=== PATIENT | female | born 1960 | race Caucasian/White ===

== ENCOUNTER → 2019-11-08 14:30 | Outpatient (CLI) | payer MEDICARE, MEDICAID, SELFPAY ==
--- NOTE | ~2019-11-08 | MR_ITS ---
EXAMINATION: MR cervical spine wo con DATE: 11/08/2019 15:24 INDICATION: Chronic right-sided neck pain. Right shoulder and arm pain. TECHNIQUE: Magnetic resonance imaging (MRI) of the cervical spine was performed without intravenous c ontrast. Sequences included sagittal T2-weighted FSE, sagittal STIR FSE, sagittal T1-weighted FSE, ax ial MERGE, and axial T2-weighted FSE. COMPARISON: None FINDINGS: There is 7 degrees dextrocurvature of cervical spine. Vertebral body heights are normal. Th ere is moderately decreased disc height at C4-C5 and mildly decreased disc height at C5-C6 and C6-C7. There is increased T2-weighted signal intensity in the spinal cord at C4-C5, consistent with myeloma lacia. The following disc levels are specifically discussed: C2-C3: The disc does not extend beyond the endplate margin. There is no uncovertebral joint osteoarth ritis. There is mild bilateral facet joint osteoarthritis. There is no neural foraminal stenosis. The re is no central canal stenosis. C3-C4: The disc is bulging. There is mild bilateral uncovertebral joint osteoarthritis. There is mild bilateral facet joint osteoarthritis. There is mild bilateral neural foraminal stenosis. There is mi ld central canal stenosis with ventral indentation of the spinal cord. C4-C5: The disc is bulging. There is severe bilateral uncovertebral joint osteoarthritis. There is mi ld left facet joint osteoarthritis. There is moderate bilateral neural foraminal stenosis. There is s evere central canal stenosis with ventral and dorsal indentation of the spinal cord. C5-C6: The disc is bulging with superimposed central extrusion. There is moderate bilateral uncoverte bral joint osteoarthritis. There is mild bilateral facet joint osteoarthritis. There is mild bilatera l neural foraminal stenosis. There is moderate central canal stenosis with ventral and dorsal indenta tion of the spinal cord. C6-C7: There is a right central extrusion. There is mild bilateral uncovertebral joint osteoarthritis . There is no facet joint osteoarthritis. There is no neural foraminal stenosis. There is mild centra l canal stenosis with ventral indentation of the spinal cord. C7-T1: The disc does not extend beyond the endplate margin. There is no uncovertebral joint osteoarth ritis. There is mild bilateral facet joint osteoarthritis. There is mild left neural foraminal stenos is. There is no central canal stenosis. IMPRESSION: 1. Myelomalacia at C4-C5. 2. Moderate cervical spondylosis. Reviewed, dictated and finalized at location A.
--- NOTE | ~2019-11-08 | MR_ITS ---
EXAMINATION: MR lumbar spine wo [facility] EXAM DATE: 11/08/2019 15:42 INDICATION: Chronic low back pain, right leg and hip pain. TECHNIQUE: Multi-sequential, multiplanar MR images of the lumbar spine were obtained without contrast . Sagittal T1, T2, T2 fat saturation images. Axial T2 weighted images. There is no prior study for comparison. FINDINGS: There is mild lumbar disc desiccation. The vertebral bodies are aligned in the AP dimension . Vertebral body and disc heights are well-maintained. The conus medullaris terminates at the T12-L1 level and has normal signal intensity and morphology. There are no suspicious marrow signal abnormal ities. Paraspinal soft tissue is unremarkable. Level by level evaluation: T12-L1: Disc does not extend beyond the endplate margin. Facet arthropathy: Mild. Neural foraminal stenosis: No stenosis. Central canal stenosis: No stenosis. L1-L2: Disc does not extend beyond the endplate margin. Facet arthropathy: Mild. Neural foraminal stenosis: No stenosis. Central canal stenosis: No stenosis. L2-L3: There is a minimal diffuse disc bulge. Facet arthropathy: Mild. Neural foraminal stenosis: No stenosis. Central canal stenosis: No stenosis. L3-L4: There is a mild diffuse disc bulge. Facet arthropathy: Moderate. Ligamentum flavum enlargement. Neural foraminal stenosis: Mild bilateral. Central canal stenosis: Mild. L4-L5: There is a mild to moderate diffuse disc bulge. Facet arthropathy: Moderate to severe. Neural foraminal stenosis: Mild to moderate bilateral. Central canal stenosis: Moderate. L5-S1: There is a minimal diffuse disc bulge. Facet arthropathy: Minimal. Neural foraminal stenosis: Mild bilateral. Central canal stenosis: No stenosis. IMPRESSION: 1. L4-5 moderate to severe lumbar facet arthropathy, moderate central canal stenosis. 2. Otherwise mild to moderate lumbar spondylosis. Reviewed, dictated and finalized at location A. IMPRESSION: 1. L4-5 moderate to severe lumbar facet arthropathy, moderate central canal st enosis. 2. Otherwise mild to moderate lumbar spondylosis.
== END ==
PROVIDERS: Visit Provider Nurse Practitioner Adult Health
DX: M47.22 Other spondylosis with radiculopathy, cervical region (principal); M47.26 Other spondylosis with radiculopathy, lumbar region
CPT/HCPCS: 72141; 72148

== ENCOUNTER 2020-02-12 15:01 | Inpatient (IN) | payer MEDICARE, MEDICAID, SELFPAY ==
--- NOTE | ~2020-02-12 | XR_ITS ---
EXAMINATION: XR abdomen obstructive series DATE: 02/14/2020 08:11 INDICATION: Partial small bowel obstruction. TECHNIQUE: Upright and supine views of the abdomen were obtained. COMPARISON: Abdomen radiograph 02/13/2020, CT abdomen and pelvis 02/12/2020 FINDINGS: There is dilated small bowel in the midabdomen. The colon is normal in caliber. No free int raperitoneal gas. Surgical clips in the right upper quadrant are likely from cholecystectomy. The danish ogastric tube tip is in the stomach. There is a prominent left paracardial fat pad. There is mild ate lectasis in left lower lung zone. IMPRESSION: 1. Chronically dilated small bowel, consistent with partial small bowel obstruction. Reviewed, dictated and finalized at location A. IMPRESSION: 1. Chronically dilated small bowel, consistent with partial small bowel obstruc tion.
--- NOTE | ~2020-02-12 | CT_ITS ---
EXAMINATION: CT abdomen pelvis w con DATE: 02/12/2020 17:10 INDICATION: Low abdominal pain. Nausea and vomiting. TECHNIQUE: Computed tomography (CT) of the abdomen and pelvis was performed with 100 mL Omnipaque 350 intravenous contrast. Automated exposure control and iterative reconstruction technique were employe d. The dose-length product was 764.79 mGy-cm. COMPARISON: CT abdomen and pelvis 02/01/2019 FINDINGS: The visualized portions of the lung bases demonstrate emphysema and mild atelectasis and sc arring. No pleural effusion. The heart size is normal. No pericardial effusion. There is a 12 mm cyst in the liver. There are changes of cholecystectomy. The spleen, pancreas, and adrenal glands are nor mal. There are cysts in the kidneys measuring up to 2.5 cm on the right. There is an anastomosis in t he rectum. There are multiple dilated loops of small bowel with transition point at a small bowel renan stomosis stenosis. There is mesenteric edema in the area of bowel dilatation. There are no pathologic ally enlarged lymph nodes. There is no free intraperitoneal fluid. There is mild thoracolumbar spondy losis. IMPRESSION: 1. Chronically dilated small bowel with transition point at a small bowel anastomosis, consistent wit h partial small bowel obstruction. Reviewed, dictated and finalized at location A. IMPRESSION: 1. Chronically dilated small bowel with transition point at a small bowel anast omosis, consistent with partial small bowel obstruction.
--- NOTE | ~2020-02-12 | XR_ITS ---
EXAMINATION: XR abdomen obstructive series DATE: 02/13/2020 08:03 INDICATION: Small bowel obstruction. TECHNIQUE: Upright and supine views of the abdomen were obtained. COMPARISON: CT abdomen and pelvis 02/12/2020 FINDINGS: There are dilated loops of small bowel in the midabdomen. The colon is decompressed. No delia e intraperitoneal gas. The nasogastric tube tip is in the stomach. Surgical clips in the right upper quadrant are likely from cholecystectomy. IMPRESSION: 1. Chronically dilated small bowel, consistent with partial small bowel obstruction. Reviewed, dictated and finalized at location A. IMPRESSION: 1. Chronically dilated small bowel, consistent with partial small bowel obstruc tion.
--- NOTE | ~2020-02-12 | XR_ITS ---
EXAMINATION: XR abdomen NG/feed tube insert DATE: 02/12/2020 18:11 INDICATION: Nasogastric tube placement. TECHNIQUE: An upright view of the abdomen was obtained. COMPARISON: CT abdomen and pelvis 02/12/2020 FINDINGS: The lower abdomen is excluded. There are dilated loops of small bowel. The nasogastric tube tip is in the stomach. Surgical clips in the right upper quadrant are likely from cholecystectomy. T here is mild atelectasis in right midlung zone. IMPRESSION: 1. Nasogastric tube tip in the stomach. 2. Chronically dilated small bowel, consistent with partial small bowel obstruction. Reviewed, dictated and finalized at location A. IMPRESSION: 1. Nasogastric tube tip in the stomach. 2. Chronically dilated small bowel, consistent with partial small bowel obstruc tion.
--- NOTE | ~2020-02-12 | XR_ITS ---
EXAMINATION: XR small bowel follow through DATE: 02/15/2020 10:22 INDICATION: Small bowel obstruction. TECHNIQUE: Oral contrast was administered, and a time course of radiographs of the abdomen was obtain ed. Fluoroscopy of the small bowel was not performed. Fluoroscopy exposure time was 0 minutes. The to mal number of images was 2. COMPARISON: CT abdomen and pelvis 02/12/2020 FINDINGS: The nasogastric tube tip is in the stomach. There are multiple chronically dilated loops of small bow el. Transit time from the stomach to proximal colon was approximately 30 minutes. Surgical clips in t he right upper quadrant are likely from cholecystectomy. IMPRESSION: 1. Chronically dilated small bowel with prompt passage of contrast to the colon, consistent with adyn amic ileus. Reviewed, dictated and finalized at location A. IMPRESSION: 1. Chronically dilated small bowel with prompt passage of contrast to the colon , consistent with adynamic ileus.
[2020-02-12 15:04] VITALS: BP 109/66; PULSE 70; RESP 18; TEMP 36.3; O2SAT 96
[2020-02-12 16:06] LABS: Basophils Absolute Auto 0.1 K/mm3 (0.0-0.1); Basophils Percent Auto 0.4 % (0.2-1.2); Eosinophils Absolute Auto 0.1 K/mm3 (0-0.3); Eosinophils Percent Auto 0.8 % (0-4.4); Hemoglobin 11.1 g/dL (12.0-15.0); Immature Granulocyte Percent A 0.7 % (0-0.5); Lymphocytes Absolute Auto 3.83 K/mm3 (0.9-3.2); Lymphocytes Percent Auto 27.6 % (18.3-44.2); Mean Corpuscular HGB Conc 30.8 g/dl (32-36); Mean Corpuscular Hemoglobin 23.7 pg (26-34); Mean Corpuscular Volume 76.9 fl (80-100); Mean Platelet Volume 9.9 fl (7.4-10.4); Monocytes Absolute Auto 0.8 K/mm3 (0.1-0.6); Monocytes Percent Auto 5.9 % (2.6-8.5); Neutrophils Percent Auto 64.6 % (45.5-73.1); Platelet Count Result 434 k/mm3 (150-375); Red Blood Count 4.68 M/mm3 (4.2-5.4); Red Cell Distribution Width 17.7 % (11.5-14.5); White Blood Count 13.9 K/mm3 (4.5-10.0)
[2020-02-12 16:20] LABS: Alanine Aminotransferase 15 U/L (4-35); Albumin Level 4.3 g/dL (3.5-5.1); Alkaline Phosphatase 113 U/L (38-126); Aspartate Amino Transferase 26 U/L (14-36); Bilirubin,Total 0.3 mg/dL (0.2-1.3); Blood Urea Nitrogen 23 mg/dL (7-17); Calcium 9.3 mg/dL (8.4-10.2); Carbon Dioxide 30 mmol/L (22-30); Chloride 100 mmol/L (98-107); Estimated CRCL calculation 84 ml/min; Estimated Glomerular Filt Rate > 60; Glucose 126 mg/dL (65-105); Lipase 44 U/L (23-300); Potassium 3.6 mmol/L (3.4-5.0); Sodium 136 mmol/L (137-145)
--- NOTE | 2020-02-12 16:54 | ED.GENADULT ---
HPI - General Adult General Chief complaint: Abdominal Pain Stated complaint: Vomiting, ABD Pain Time Seen by Provider: 02/12/20 15:36 History of Present Illness HPI narrative: Patient is a 59 y/o female complaining of generalized abdominal pain since yesterday. The pain is a cramping sensation and worse on the right side. She rates her pain as 10/10. She has some nausea but no vomiting or diarrhea. She took MOM which did not help. She states that she had multiple surgeries and bowel obstructions in the past. She denies any chest pain, SOB, dysuria or fever. Related Data Home Medications Medication Instructions Recorded Confirmed albuterol sulfate 90 mcg/actuation 1 inhalation INHALATION Q4H 09/21/19 aerosol inhaler fluticasone 500 mcg-salmeterol 50 1 inhalation INHALATION Q12H 09/21/19 mcg/dose blistr powdr for inhalation fluticasone propionate 50 1 spray NASAL DAILY 09/21/19 mcg/actuation nasal spray,suspension ipratropium 0.5 mg-albuterol 3 mg 3 ml INHALATION Q4H PRN 09/21/19 (2.5 mg base)/3 mL nebulization soln modafinil 200 mg tablet 200 mg PO QAM 09/21/19 pantoprazole 20 mg tablet,delayed 20 mg PO QAM 09/21/19 release peg 400-propylene glycol 0.4 %-0.3 1 drop EACH EYE DAILY PRN 09/21/19 % eye drops ropinirole 1 mg tablet 1 mg PO DAILY tablet 09/21/19 Allergies Allergy/AdvReac Type Severity Reaction Status Date / Time latex Allergy Unknown unknown Verified 02/12/20 15:06 Penicillins Allergy Unknown unknown Verified 02/12/20 15:06 Review of Systems Constitutional: Constitutional: Denies chills, Denies fever(s), Denies headache(s) and Denies weakness Eyes: Eyes: Denies blurry vision ENT: Denies headache(s) and Denies neck pain Cardiovascular: Cardiovascular: Denies chest pain and Denies dyspnea Respiratory: Respiratory: Denies cough and Denies dyspnea Gastrointestinal: Gastrointestinal: Reports abdominal pain, Denies diarrhea, Reports nausea and Denies vomiting Genitourinary: Genitourinary: Denies hematuria and Denies dysuria Musculoskeletal: Musculoskeletal: Denies back pain and Denies neck pain Neurologic: Denies headache(s) and Denies weakness PMFSH Social History Social History Smoking status: Current every day smoker Smoking end date: 09/01/17 Alcohol intake: current Gender identity (if verbalized by the patient): Female Exam Const: General: no acute distress and well developed Orientation/consciousness: oriented to person, oriented to place, oriented to time and patient oriented x3 HENMT: Head: normocephalic Ears: external ears normal General nose exam: Normal external nose present Eyes: General: appearance normal, both eyes and all related structures Conjunctivae: conjunctivae normal Neck: Neck: normal visual inspection and full ROM Chest: Chest palpation & inspection: normal inspection of the chest and no tenderness Resp: Effort & Inspection: normal respiratory effort Auscultation: clear to auscultation bilaterally Cardio: Rate: regular rate Rhythm: regular rhythm GI: GI Palp: Yes abdominal tenderness and Yes Soft to palpation Skin: General skin exam: normal color and turgor normal Neuro: General: oriented to person, oriented to place, oriented to time and patient oriented x3 Cognition (Neuro): normal cognition Extrem: General: normal to inspection, full ROM and no pedal edema Psych: Appearance: grossly normal Mental Status: mental status grossly normal Affect: normal affect Course Consultations Consultation #1: Discussed with Dr. Uribe, who recommends admitting to hospitalist if possible. Date: 02/12/20 Time: 18:08 Consultation #2: Discussed with LOVELY Joe, who agrees to admit to Dr. Aldana. Date: 02/12/20 Time: 18:14 Vital Signs Vital signs: Vital Signs Temperature 36.3 C L 02/12/20 15:04 Pulse Rate 70 02/12/20 15:04 Respiratory Rate 18 02/12/20 15:04 Bloo
[2020-02-12 17:50] LABS: Add Urine Microscopic? YES; Appearance Urine Clear (Clear); Bacteria Urine Trace /hpf; Bilirubin Urine Negative (Negative); Blood Urine Negative (Negative); Color Urine Yellow (Yellow); Glucose Urine UA Negative (Negative); Ketones Urine Trace mg/dL (Negative); Leukocyte Esterase Ur Negative LEU/UL (Negative); Mucus Urine Few /lpf; Nitrate Urine Negative (Negative); Protein Urine Negative (Negative); Specific Grav Ur 1.018 (1.001-1.035); Squamous Epithelial Cell Urine Many /hpf (Few); Urobilinogen Urine Negative mg/dL (<2.0)
[2020-02-12] MEDS: MORPHINE SULFATE 4 MG/ML INJ IV PUSH (18:01)
[2020-02-12] MEDS: SODIUM CHLORIDE 0.9% IV 1,000 ML 999 ML IV CONT (18:01)
[2020-02-12 19:00] VITALS: BP 141/70; PULSE 80; RESP 18; O2SAT 92
--- NOTE | 2020-02-12 19:45 | ADMGEN ---
This patient, Rebecca Ricci, was admitted to Medical Room 349-01. Patient/family oriented to hospital policies and general routines including ID bracelet, bed and alarms, visiting hours, pain management, procedures, bathroom and other care routines, personal items, smoking policy, room service/diet, and visiting hours. Valuables list has been completed. Information on how to activate the Rapid Response Team has been discussed. Patient/Family are encouraged to report perceived risks to care and to ask questions if they do not understand what they are told or what they should do.
[2020-02-12] MEDS: SODIUM CHLORIDE 0.9% IV 1,000 ML 100 ML IV CONT (19:50)
--- NOTE | 2020-02-12 20:00 | PM.IMHP ---
H&P: HPI History of Present Illness Chief complaint: Abdominal pain. Narrative: Rebecca Ricci is a very pleasant 59-year-old female with history of several abdominal surgeries and small bowel obstructions who presented to the emergency department earlier this afternoon from home for evaluation of abdominal pain. Her medical history is also significant for chronic respiratory failure on p.r.n. oxygen, COPD, obstructive sleep apnea, chronic anemia, and GERD. Yesterday afternoon, not long after eating a fruit salad, corn on the cob, and cauliflower, she developed diffuse abdominal pain, worse in the right middle and lower quadrant, similar to prior bowel obstructions. Last night she slept poorly as she was up walking around trying to get her bowels to move. She did have a small formed stool this morning, but she continued to have pain so she took milk of magnesia without much benefit. Additionally, she has had nausea, vomiting, and abdominal bloating. She then decided come to the emergency department and not long thereafter she had a fairly large loose stool. CT of the abdomen and pelvis done on arrival to the emergency department showed chronically dilated small bowel with a transition point at small-bowel anastomosis consistent with partial small-bowel obstruction. NG tube has since been placed and she feels a bit better with regards to her nausea. She denies fever, chills, and sweats. No hematemesis, melena, or hematochezia. She has not had chest pain or shortness of breath. Review of Systems Review of Systems: Narrative: Twelve systems were reviewed with pertinent positives and negatives as per HPI. Except as documented, all other systems were reviewed and are negative. [facility] Past Medical History Medical History (Updated 02/12/20 @ 21:39 by Tatyana Wang PA-C) Chronic anemia Chronic back pain Chronic obstructive pulmonary disease Chronic respiratory failure with hypoxia On 2 liters nasal cannula p.r.n. Depression with anxiety Dyslipidemia Gastroesophageal reflux disease Hypothyroidism Migraine headache Obstructive sleep apnea Peripheral neuropathy Scoliosis Small bowel obstruction due to adhesions Previous, multiple admissions for such. Vitamin D deficiency Surgical History Surgical History (Updated 02/12/20 @ 21:34 by Tatyana Wang PA-C) Bladder prolapse Repair of bladder prolapse. History of bilateral cataract extraction History of bowel resection Secondary to bowel obstruction with colostomy and subsequent takedown. History of cholecystectomy History of eye surgery Treatment of amblyopia. History of tonsillectomy and adenoidectomy Rectal prolapse Rectal prolapse repair. Status post small bowel resection (~01/2019) Exploratory laparotomy with resection of 36 centimeters of the small bowel with extensive adhesiolysis and ileal-ileal anastomosis. Family History Family History (Updated 02/12/20 @ 21:35 by Tatyana Wang PA-C) Father Cirrhosis Mother Emphysema of lung Social History Social History (Updated 02/12/20 @ 21:36 by Tatyana Wang PA-C) Social History: The patient lives in [place] with her significant other, Luis Fernando. 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 She smoked about a pack of cigarettes per day for > 30 years and quit in 2018. She denies alcohol and illicit substance abuse. She designates her son, Rohit, as her surrogate decision maker and she wishes to be a full code. Years smoked: 30 Smoking status: Current every day smoker Tobacco type: cigarettes Smoking end date: 09/01/17 Alcohol intake: former Substance use: never Sexual Orientation (if Verbalized by the Patient): Straight or Heterosexual Spiritual care concerns: No Meds Home Medications and Allergies Home Medications Medication Instructions Recorded Confirmed Type albuterol sulfate 90 mcg/actuation 2 inhalation INHALATION Q4H PRN 09/21/19 02/12/20 History aerosol inhaler
[2020-02-12 20:12] VITALS: BMI 31.3
[2020-02-12 20:58] VITALS: BP 140/72; PULSE 92; RESP 16; TEMP 36.3; O2SAT 95
[2020-02-13 04:20] LABS: IFOB Positive Control Positive; Immunochemical Fecal Occult Bl Negative (N)
[2020-02-13 04:46] VITALS: BP 143/74; PULSE 81; RESP 14; TEMP 36.2; O2SAT 96
[2020-02-13] MEDS: SODIUM CHLORIDE 0.9% IV 1,000 ML 100 ML IV CONT ×2 (05:30→17:33)
[2020-02-13] MEDS: MORPHINE SULFATE 2 MG/ML INJ IV PUSH (05:32)
[2020-02-13] MEDS: PANTOPRAZOLE SODIUM IV 40 MG VIAL IV PUSH (09:32)
[2020-02-13] MEDS: FLUTICASONE PROPIONATE 0.05% NA SPR 16 GM BTL (*BKC) 1 SPRAY NASAL (09:32)
--- NOTE | 2020-02-13 09:42 | PM.IMPN ---
Progress Note: A&P Assessment and Plan (1) Partial small bowel obstruction: Code(s): K56.600 - Partial intestinal obstruction, unspecified as to cause Status: Acute Assessment and Plan: History of multiple abdominal surgeries in the past and small-bowel obstruction. NG tube was placed, bowel rest, IV fluid hydration She reports improved pain but still having symptoms of a bowel obstruction. Surgery has been consulted and their input is greatly appreciated. Repeat abdominal x-ray completed this morning and still pending. Continue monitoring patient's symptoms. (2) Chronic anemia: Code(s): D64.9 - Anemia, unspecified Status: Acute Assessment and Plan: Hemoglobin and hematocrit are relatively stable on review of previous labs, but now with findings of microcytic anemia CBC from this morning is still pending along with iron panel, vitamin B12 and folic acid level. Stool was negative for occult blood. Continue monitoring H&H. No acute signs of bleeding at this time. Transfuse as needed. (3) Gastroesophageal reflux disease: Code(s): K21.9 - Gastro-esophageal reflux disease without esophagitis Status: Acute Assessment and Plan: Change pantoprazole to IV form while NPO. (4) Chronic obstructive pulmonary disease: Code(s): J44.9 - Chronic obstructive pulmonary disease, unspecified Status: Acute Assessment and Plan: Will continue her home inhalers. Patient does have some wheezing noted today. Continue monitoring respiratory status. Continue home respiratory regimen. P.r.n. nebulizer treatments as needed Time Spent With Patient Time with patient: 25 - 35 minutes Subjective Date/time seen: 02/13/20 09:42 Interval history: Date of service 02/13/2020: The patient reports her pain has improved since the NG tube was placed. Currently now she is only having some diffuse abdominal cramping at times but the pain is tolerable. She still feels like there is an obstruction due to her symptoms. She denies any nausea, vomiting since the NG tube was placed. She has reported multiple small stools but denies much flatulence today. She does report some wheezing to her lungs but she has a history of emphysema, and she has had some slight sputum production which is normal for her in the mornings with her COPD. She denies any fevers, chills, chest pain, shortness of breath, leg swelling, calf pain, dysuria, frequent urination, or any other symptoms at this time. Review of Systems Review of Systems: All systems reviewed & are unremarkable except as noted in HPI and below Exam Narrative: Exam Narrative: General: 59-year-old woman laying flat in bed with an NG tube in place, watching TV. Appears comfortable. In no acute distress. Skin: No jaundice or cyanosis. Good skin turgor. Neck: Full range of motion. Supple. Respiratory: Inspiratory wheezing noted in anterior lateral lung royal. No crackles. No bony chest wall tenderness. Cardiovascular: The heart has a regular rate and rhythm without murmur. Lower extremities: No lower extremity edema. Distal pulses are easily palpated. No calf tenderness to palpation. Gastrointestinal: Multiple healed surgical scars to her abdomen. Tenderness to palpation of right and left lower quadrants with light percussion. No bowel sounds auscultated. The abdomen is soft and nondistended. Psychiatric: Lucid and oriented. Memory intact. Neurologic: No focal deficits. Speech is clear. No facial drooping. Objective Data Vital Signs Vital Signs: Vital Signs - 24 hr 02/12/20 15:04 02/12/20 19:00 02/12/20 20:58 Temperature 97.3 F L 97.4 F L Pulse Rate 70 80 92 Respiratory Rate 18 18 16 Blood Pressure 109/66 141/70 H 140
[2020-02-13 09:54] LABS: Basophils Percent Auto 0.3 % (0.2-1.2); Eosinophils Absolute Auto 0.1 K/mm3 (0-0.3); Eosinophils Percent Auto 1.2 % (0-4.4); Hematocrit 32.3 % (37.0-47.0); Immature Granulocyte Absolute 0.04 K/mm3 (0.00-0.031); Immature Granulocyte Percent A 0.5 % (0-0.5); Lymphocytes Absolute Auto 2.62 K/mm3 (0.9-3.2); Lymphocytes Percent Auto 35.2 % (18.3-44.2); Mean Corpuscular Volume 77.6 fl (80-100); Mean Platelet Volume 9.6 fl (7.4-10.4); Monocytes Absolute Auto 0.5 K/mm3 (0.1-0.6); Monocytes Percent Auto 7.1 % (2.6-8.5); Neutrophils Absolute Auto 4.2 K/mm3 (1.3-6.7); Neutrophils Percent Auto 55.7 % (45.5-73.1); Platelet Count Result 356 k/mm3 (150-375); Red Blood Count 4.16 M/mm3 (4.2-5.4); Red Cell Distribution Width 17.7 % (11.5-14.5); White Blood Count 7.5 K/mm3 (4.5-10.0)
[2020-02-13] MEDS: FLUTICASONE/SALMETEROL 230-21 MCG INHALER 1 PUFF 2 PUFF INHALATION ×2 (10:05→19:12)
[2020-02-13 10:09] LABS: Lactic Acid 0.5 mmol/L (0.7-2.1)
[2020-02-13 10:10] LABS: Blood Urea Nitrogen 16 mg/dL (7-17); Carbon Dioxide 27 mmol/L (22-30); Chloride 106 mmol/L (98-107); Estimated CRCL calculation 84 ml/min; Estimated Glomerular Filt Rate > 60; Glucose 100 mg/dL (65-105); Magnesium 2.1 mg/dL (1.6-2.3); Potassium 3.6 mmol/L (3.4-5.0); Sodium 137 mmol/L (137-145)
[2020-02-13 10:48] LABS: Iron 152 ug/dL (37-170)
[2020-02-13 10:58] LABS: Percent Iron Saturation 37 % (20-50)
[2020-02-13 11:15] LABS: Folic Acid 18.8 ng/mL (2.76->20)
[2020-02-13 14:00] VITALS: BP 146/79; PULSE 72; RESP 18; TEMP 36.4; O2SAT 94
--- NOTE | 2020-02-13 19:41 | PM.CNGS ---
Assessment and Plan Assessment and plan (1) Partial small bowel obstruction: Onset Date: ~02/12/20 Code(s): K56.600 - Partial intestinal obstruction, unspecified as to cause Status: Acute Assessment and Plan: This was seen on CT scan of the abdomen and pelvis. The patient had appropriate symptoms. She has improved with NG decompression. Will repeat abdominal films tomorrow. Today's still showed some dilated loops of small bowel in the central abdomen. Patient has had several bowel movements however so I suspect that this is resolving. Repeat abdominal film Repeat CBC and electrolytes Will decide tomorrow whether to pursue small-bowel follow-through with Gastrografin versus simply removing the NG and gradually increasing the patient's diet. (2) Chronic obstructive pulmonary disease: Onset Date: Unknown Code(s): J44.9 - Chronic obstructive pulmonary disease, unspecified Status: Acute (3) Gastroesophageal reflux disease: Onset Date: Unknown Code(s): K21.9 - Gastro-esophageal reflux disease without esophagitis Status: Acute Assessment and Plan: We will use IV PPI for now. (4) Chronic anemia: Onset Date: Unknown Code(s): D64.9 - Anemia, unspecified Status: Acute Assessment and Plan: further workup per Medicine. Additional Plan COPD. Patient on oxygen and will get usual inhalers. Appreciate medical help with this pleasant patient's care. History of Present Illness Consult details Consult date: 02/13/20 Reason for consult: abdominal pain (Suspected partial or complete bowel obstruction) Requesting physician: Yomaira Aldana MD Narrative: Rebecca Ricci is a very pleasant 59-year-old White female with history of several abdominal surgeries and small bowel obstructions who presented to the emergency department yesterday afternoon from home for evaluation of abdominal pain. Her medical history is also significant for chronic respiratory failure on p.r.n. oxygen, COPD, obstructive sleep apnea, chronic anemia, and GERD. Yesterday afternoon, not long after eating a fruit salad, corn on the cob, and cauliflower, she developed diffuse abdominal pain, worse in the right middle and lower quadrant, similar to prior bowel obstructions. Friday night she slept poorly as she was up walking around trying to get her bowels to move. She did have a small formed stool Saturaday morning, but she continued to have pain so she took milk of magnesia at around noon without much subsequent benefit. Additionally, she has had nausea, vomiting, and abdominal bloating. She then decided come to the emergency department and not long thereafter she had a fairly large loose stool. Workup by Dr. Lange in the emergency room included labs and a CT scan. The CT of the abdomen and pelvis done on arrival to the emergency department showed chronically dilated small bowel with a transition point at small-bowel anastomosis consistent with partial small-bowel obstruction. NG tube has since been placed and she feels a bit better with regards to her nausea. However all day today( Friday ) there has only been 200 cc out. She denies fever, chills, and sweats. No hematemesis, melena, or hematochezia. She has not had chest pain or shortness of breath. Review of Systems Constitutional: Constitutional: Reports as per HPI and Denies headache(s) Eyes: Eyes: Denies loss of vision and Denies eye pain ENT: Reports Normal hearing present, Denies change in voice, Denies dizziness and Denies headache(s) Cardiovascular: Cardiovascular: Denies chest pain and Denies dyspnea Respiratory: Respiratory: Denies dyspnea and Denies wheezing Gastrointestinal: Gastrointestinal: Reports as per HPI, Reports abdominal pain ( Periodic and cramping), Reports bloating, Reports change in bowel habits ( patient states that occasionally over the last 3 months she does get const) and Denies vomiting
[2020-02-13 20:54] VITALS: BP 145/65; PULSE 72; RESP 15; TEMP 36.4; O2SAT 95
[2020-02-14 04:52] VITALS: BP 150/82; PULSE 100; RESP 18; TEMP 36.1; O2SAT 96
[2020-02-14] MEDS: SODIUM CHLORIDE 0.9% IV 1,000 ML 100 ML IV CONT (04:52)
[2020-02-14] MEDS: FLUTICASONE/SALMETEROL 230-21 MCG INHALER 1 PUFF 2 PUFF INHALATION ×2 (06:01→20:21)
[2020-02-14 06:17] LABS: Hematocrit 33.1 % (37.0-47.0); Hemoglobin 10.1 g/dL (12.0-15.0); Mean Corpuscular HGB Conc 30.5 g/dl (32-36); Mean Corpuscular Hemoglobin 23.5 pg (26-34); Mean Platelet Volume 9.7 fl (7.4-10.4); Platelet Count Result 394 k/mm3 (150-375); Red Cell Distribution Width 17.6 % (11.5-14.5); White Blood Count 9.2 K/mm3 (4.5-10.0)
[2020-02-14 07:42] LABS: Blood Urea Nitrogen 11 mg/dL (7-17); Calcium 8.3 mg/dL (8.4-10.2); Carbon Dioxide 22 mmol/L (22-30); Chloride 109 mmol/L (98-107); Estimated CRCL calculation 84 ml/min; Estimated Glomerular Filt Rate > 60; Glucose 106 mg/dL (65-105); Magnesium 1.9 mg/dL (1.6-2.3); Potassium 3.5 mmol/L (3.4-5.0); Sodium 138 mmol/L (137-145)
[2020-02-14] MEDS: FLUTICASONE PROPIONATE 0.05% NA SPR 16 GM BTL (*BKC) 1 SPRAY NASAL (08:43)
[2020-02-14] MEDS: PANTOPRAZOLE SODIUM IV 40 MG VIAL IV PUSH (08:43)
--- NOTE | 2020-02-14 13:42 | PM.IMPN ---
Progress Note: A&P Assessment and Plan (1) Partial small bowel obstruction: Onset Date: ~02/12/20 Code(s): K56.600 - Partial intestinal obstruction, unspecified as to cause Status: Acute Assessment and Plan: History of multiple abdominal surgeries in the past and small-bowel obstruction. NG tube was placed, bowel rest, IV fluid hydration Repeat abdominal x-ray completed this morning prior to her bowel movements still showed partial small-bowel obstruction. She reports improvement of pain after having 2 large bowel movements this morning. I have talked to surgery about this and they will be around to evaluate her to decide if they would like to start her on any liquids or repeat an abdominal x-ray to see if obstruction has resolved. Continue monitoring patient's symptoms. (2) Chronic anemia: Onset Date: Unknown Code(s): D64.9 - Anemia, unspecified Status: Acute Assessment and Plan: Hemoglobin and hematocrit are relatively stable on review of previous labs, but now with findings of microcytic anemia H&H is stable. Iron panel, vitamin B12, folic acid are all normal. Stool was negative for occult blood. Continue monitoring H&H. No acute signs of bleeding at this time. Transfuse as needed. (3) Gastroesophageal reflux disease: Onset Date: Unknown Code(s): K21.9 - Gastro-esophageal reflux disease without esophagitis Status: Acute Assessment and Plan: Change pantoprazole to IV form while NPO. (4) Chronic obstructive pulmonary disease: Onset Date: Unknown Code(s): J44.9 - Chronic obstructive pulmonary disease, unspecified Status: Acute Assessment and Plan: Will continue her home inhalers. No wheezing today on exam. Continue monitoring respiratory status. Continue home respiratory regimen. P.r.n. nebulizer treatments as needed Time Spent With Patient Time with patient: 25 - 35 minutes Subjective Date/time seen: 02/14/20 13:42 Interval history: Date of service 02/14/2020: The patient states this morning she was doing some walking in the halls and she had 2 large bowel movements afterwards. She states her pain since then has been much better and she has even hungry at this time. She is still having some intermittent cramping to her abdomen but is much improved. She denies any fevers, chills, chest pain, shortness of breath, leg swelling, calf pain, dysuria, frequent urination, or any other symptoms at this time. Review of Systems Review of Systems: All systems reviewed & are unremarkable except as noted in HPI and below Exam Narrative: Exam Narrative: General: 59-year-old woman laying flat in bed with an NG tube in place, watching TV. Appears comfortable. In no acute distress. Skin: No jaundice or cyanosis. Good skin turgor. Neck: Full range of motion. Supple. Respiratory: Lung sounds are clear to auscultation today. No wheezing, rales or rhonchi. No bony chest wall tenderness. Cardiovascular: The heart has a regular rate and rhythm without murmur. Lower extremities: No lower extremity edema. Distal pulses are easily palpated. No calf tenderness to palpation. Gastrointestinal: Active bowel sounds in all 4 quadrants. Multiple healed surgical scars to her abdomen. Slight tenderness to palpation of right and left lower quadrants. No rebound or guarding. The abdomen is soft and nondistended. Psychiatric: Lucid and oriented. Memory intact. Neurologic: No focal deficits. Speech is clear. No facial drooping. Objective Data Vital Signs Vital Signs: Vital Signs - 24 hr 02/13/20 14:00 02/13/20 20:54 02/14/20 04:52 Temperature 97.5 F L 97.5 F L 97 F L Pulse Rate 72 72 100 Respiratory Rate 18 15 18 Blood Pres
[2020-02-14 14:00] VITALS: BP 156/77; PULSE 76; RESP 16; TEMP 36.3; O2SAT 96
--- NOTE | 2020-02-14 15:30 | PM.PNGS ---
Progress Note: A&P Assessment and Plan (1) Partial small bowel obstruction: Onset Date: ~02/12/20 Code(s): K56.600 - Partial intestinal obstruction, unspecified as to cause Status: Acute Assessment and Plan: This was seen on CT scan of the abdomen and pelvis. The patient had appropriate symptoms. She has improved with NG decompression. Today's abdominal x-ray still showed some dilated loops of small bowel in the central abdomen. Also a large loop filled with gas in the transverse colon. Patient has had several bowel movements however so I suspect that this is resolving. Discussed thoroughly with patient. Will give her 1 dose of milk of magnesia down the NG tube and clamp it for 2 hours tonight. Then plan to go straight to the small-bowel follow-through via the NG tube tomorrow morning fairly early. Repeat CBC and electrolytes, and lactic acid be should be size to be sure there is no signs of strangulation. (2) Chronic obstructive pulmonary disease: Onset Date: Unknown Code(s): J44.9 - Chronic obstructive pulmonary disease, unspecified Status: Acute (3) Gastroesophageal reflux disease: Onset Date: Unknown Code(s): K21.9 - Gastro-esophageal reflux disease without esophagitis Status: Acute Assessment and Plan: We will use IV PPI for now. (4) Chronic anemia: Onset Date: Unknown Code(s): D64.9 - Anemia, unspecified Status: Acute Assessment and Plan: further workup per Medicine. Additional Plan COPD. Patient on oxygen and will get usual inhalers. Appreciate medical help with this pleasant patient's care. Subjective Subjective Date/Time Seen: 02/14/20 15:30 Also seen at 0800 this morning Patient reports: no new complaints, feels better and bowel movement (Several during the late afternoon yesterday) Interval history: Patient feels better. She is passing flatus and stool. No significant nausea. Review of Systems Constitutional: Constitutional: Reports as per HPI and Denies headache(s) Eyes: Eyes: Denies loss of vision and Denies eye pain ENT: Reports Normal hearing present, Denies change in voice, Denies dizziness and Denies headache(s) Cardiovascular: Cardiovascular: Denies chest pain and Denies dyspnea Respiratory: Respiratory: Denies dyspnea and Denies wheezing Gastrointestinal: Gastrointestinal: Reports as per HPI, Reports abdominal pain ( Periodic and cramping), Reports bloating, Reports change in bowel habits ( patient states that occasionally over the last 3 months she does get const) and Denies vomiting Genitourinary: Genitourinary: Denies hematuria, Denies flank pain, Denies urinary incontinence and Denies urinary urgency Musculoskeletal: Musculoskeletal: Denies back pain and Denies arthralgias Neurologic: Reports Normal hearing present, Denies dizziness, Denies headache(s), Denies loss of vision and Denies memory loss Psychiatric: Psychiatric: Denies memory loss and Denies panic attacks Endocrine: Endocrine: Reports no additional endocrine complaints Hematologic/Lymphatic: Hematologic/Lymphatic: Reports no additional hematologic/lymphatic complaints Allergic/Immunologic: Allergic/Immunologic: Denies wheezing Exam Const: General: cooperative, no acute distress, well developed, alert and awake Nutritional Appearance: well nourished Orientation/consciousness: patient oriented x3 Limitations: no limitations HENMT: Head: normal to inspection, normocephalic and atraumatic Ears: hearing grossly normal bilaterally General nose exam: Normal external nose present Face and sinus: normal facial exam Mouth: Yes Normal oral and palatal mucosa present, Yes tongue normal and Yes moist mucous membranes Eyes: General: appearance normal, both eyes and all related structures Pupils: Equal, round and reactive pupils present EOM: EOMs intact bilaterally Neck: Neck: normal visual inspection, no lymphadenopat
[2020-02-14] MEDS: MAGNESIUM HYDROXIDE SUSP 30 ML UDC FEED TUBE (17:10)
[2020-02-14] MEDS: SODIUM CHLORIDE 0.9% IV 1,000 ML 80 ML IV CONT (19:56)
[2020-02-14 22:00] VITALS: BP 150/85; PULSE 67; RESP 18; TEMP 36.3; O2SAT 95
[2020-02-15 06:00] VITALS: BP 156/83; PULSE 84; RESP 16; TEMP 36.6; O2SAT 94
[2020-02-15 06:29] LABS: Hematocrit 34.1 % (37.0-47.0); Hemoglobin 10.4 g/dL (12.0-15.0); Mean Corpuscular HGB Conc 30.5 g/dl (32-36); Mean Corpuscular Hemoglobin 23.9 pg (26-34); Mean Corpuscular Volume 78.4 fl (80-100); Mean Platelet Volume 9.7 fl (7.4-10.4); Platelet Count Result 384 k/mm3 (150-375); Red Blood Count 4.35 M/mm3 (4.2-5.4); Red Cell Distribution Width 17.9 % (11.5-14.5); White Blood Count 14.1 K/mm3 (4.5-10.0)
[2020-02-15 06:51] LABS: Blood Urea Nitrogen 10 mg/dL (7-17); Calcium 8.7 mg/dL (8.4-10.2); Carbon Dioxide 22 mmol/L (22-30); Chloride 105 mmol/L (98-107); Estimated CRCL calculation 99 ml/min; Estimated Glomerular Filt Rate > 60; Glucose 86 mg/dL (65-105); Magnesium 1.9 mg/dL (1.6-2.3); Potassium 3.1 mmol/L (3.4-5.0); Sodium 138 mmol/L (137-145)
[2020-02-15 06:57] LABS: Lactic Acid 0.7 mmol/L (0.7-2.1)
[2020-02-15] MEDS: PANTOPRAZOLE SODIUM IV 40 MG VIAL IV PUSH (08:23)
[2020-02-15] MEDS: FLUTICASONE PROPIONATE 0.05% NA SPR 16 GM BTL (*BKC) 1 SPRAY NASAL (08:23)
[2020-02-15] MEDS: SODIUM CHLORIDE 0.9% IV 1,000 ML 80 ML IV CONT (08:24)
[2020-02-15] MEDS: FLUTICASONE/SALMETEROL 230-21 MCG INHALER 1 PUFF 2 PUFF INHALATION ×2 (08:50→21:09)
[2020-02-15 14:00] VITALS: BP 151/67; PULSE 81; RESP 16; TEMP 36.6; O2SAT 99
--- NOTE | 2020-02-15 14:03 | PM.PNGS ---
Progress Note: A&P Assessment and Plan (1) Chronic obstructive pulmonary disease: Onset Date: Unknown Code(s): J44.9 - Chronic obstructive pulmonary disease, unspecified Status: Acute (2) Gastroesophageal reflux disease: Onset Date: Unknown Code(s): K21.9 - Gastro-esophageal reflux disease without esophagitis Status: Acute Assessment and Plan: We will use IV PPI for now. (3) Chronic anemia: Onset Date: Unknown Code(s): D64.9 - Anemia, unspecified Status: Acute Assessment and Plan: further workup per Medicine. (4) Partial small bowel obstruction: Onset Date: ~02/12/20 Code(s): K56.600 - Partial intestinal obstruction, unspecified as to cause Status: Acute Assessment and Plan: This is the main reason for admission. Today she had a small-bowel follow-through. This shows some chronically dilated loops of small bowel with possibly some element of ileus. But dye got through to the colon and 30 minutes. Will plan to go ahead with a Full liquid diet at [facility] and see how she does overnight. If she is doing well with diet consider increasing the diet tomorrow on letting her go home. Will probably recommend that she stick with a low residue diet for a week and take routine MiraLax q.o.d. and Metamucil daily. She would also have milk a magnesia on hand intake if she goes for 2 days without a bowel movement. Additional Plan COPD. Patient on oxygen and will get usual inhalers. Appreciate medical help with this pleasant patient's care. Subjective Subjective Date/Time Seen: 02/15/20 14:03 Patient seen this morning before her small-bowel follow-through. She seems to be feeling okay and had several bowel movements per the nurses. Discussed patient's situation again after the small-bowel follow-through at approximately 15 30 this afternoon. She continues to do well. Is having more stools. Is not nauseated. I told her I would advance her diet to fulls for supper and if she tolerates that well we will include her have soft for rectus in the morning and plan for discharge tomorrow if things continue to go through without difficulties. Review of Systems Constitutional: Constitutional: Reports as per HPI and Denies headache(s) Eyes: Eyes: Denies loss of vision and Denies eye pain ENT: Reports Normal hearing present, Denies change in voice, Denies dizziness and Denies headache(s) Cardiovascular: Cardiovascular: Denies chest pain and Denies dyspnea Respiratory: Respiratory: Denies dyspnea and Denies wheezing Gastrointestinal: Gastrointestinal: Reports as per HPI, Reports abdominal pain ( Periodic and cramping), Reports bloating, Reports change in bowel habits ( patient states that occasionally over the last 3 months she does get const) and Denies vomiting Genitourinary: Genitourinary: Denies hematuria, Denies flank pain, Denies urinary incontinence and Denies urinary urgency Musculoskeletal: Musculoskeletal: Denies back pain and Denies arthralgias Neurologic: Reports Normal hearing present, Denies dizziness, Denies headache(s), Denies loss of vision and Denies memory loss Psychiatric: Psychiatric: Denies memory loss and Denies panic attacks Endocrine: Endocrine: Reports no additional endocrine complaints Hematologic/Lymphatic: Hematologic/Lymphatic: Reports no additional hematologic/lymphatic complaints Allergic/Immunologic: Allergic/Immunologic: Denies wheezing Exam Const: General: cooperative, no acute distress, well developed, alert and awake Nutritional Appearance: well nourished Orientation/consciousness: patient oriented x3 Limitations: no limitations HENMT: Head: normal to inspection, normocephalic and atraumatic Ears: hearing grossly normal bilaterally General nose exam: Normal external nose present Face and sinus: normal facial exam Mouth: Yes Normal oral and palatal mucosa present, Yes tongue normal and Y
--- NOTE | 2020-02-15 17:00 | PM.IMPN ---
Progress Note: A&P Assessment and Plan (1) Partial small bowel obstruction: Onset Date: ~02/12/20 Code(s): K56.600 - Partial intestinal obstruction, unspecified as to cause Status: Acute Assessment and Plan: History of multiple abdominal surgeries in the past and small-bowel obstruction. SBFT study today shows findings consistent with adynamic ileus, although having BMs today. Diet advanced per General Surgery; tolerating diet so far; currently on FLD Possibly advance diet tomorrow and possible discharge if continued clinical improvement Continue monitoring patient's symptoms. (2) Chronic anemia: Onset Date: Unknown Code(s): D64.9 - Anemia, unspecified Status: Acute Assessment and Plan: H&H is stable. Iron panel, vitamin B12, folic acid are all normal. Stool was negative for occult blood. Continue monitoring H&H. No acute signs of bleeding at this time. Transfuse as needed. (3) Gastroesophageal reflux disease: Onset Date: Unknown Code(s): K21.9 - Gastro-esophageal reflux disease without esophagitis Status: Acute Assessment and Plan: Will resume home pantoprazole PO (4) Chronic obstructive pulmonary disease: Onset Date: Unknown Code(s): J44.9 - Chronic obstructive pulmonary disease, unspecified Status: Acute Assessment and Plan: Lung exam unremarkable today Will continue her home inhalers. Continue monitoring respiratory status. P.r.n. nebulizer treatments as needed Subjective Date/time seen: 02/15/20 17:00 Interval history: Patient is a 59 yo F with history of several abdominal surgeries and small bowel obstructions who is here for another likely small bowel obstruction. Patient states she is doing better today. She had SBFT study today and has had several BMs since. She notes some tenderness this afternoon, but was relieved with a BM. She has no other complaints. Tolerating diet thus far. Denies f/c/s, cp/palpitations, sob, changes in cough, n/v/d/c, current abd pain, dysuria, hematuria, cloudy urine, calf pain/swelling. Review of Systems Review of Systems: All systems reviewed & are unremarkable except as noted in HPI and below Exam Narrative: Exam Narrative: Patient is sitting upright in bed at time of visit Const: General: cooperative, healthy appearing, comfortable, no acute distress, well developed, alert and awake Nutritional Appearance: well nourished and obese Orientation/consciousness: patient oriented x3 HENMT: Head: normocephalic and atraumatic General nose exam: Normal nares present Face and sinus: face symmetric Mouth: Yes moist mucous membranes Eyes: General: appearance normal, both eyes and all related structures EOM: EOMs intact bilaterally Neck: Neck: trachea midline and supple Resp: Effort & Inspection: normal respiratory effort Auscultation: clear to auscultation bilaterally Cardio: Rate: regular rate Rhythm: regular rhythm Heart sounds: no murmurs GI: Inspection: non-distended GI Palp: Yes abdominal tenderness (left sided, mild) and Yes Soft to palpation Auscultation: other (BS present) Skin: General skin exam: normal color and no rashes or lesions noted Neuro: General: patient oriented x3, moves all extremities and no focal motor deficits Cranial nerves: Yes facial symmetry Speech: normal speech Extrem: Right lower extremity: no edema Left lower extremity: no edema Other: NTTP b/l calves Psych: Mental Status: mental status grossly normal Affect: normal affect Objective Data Vital Signs Vital Signs: Last Vital Signs Temp 97.9 F 02/15/20 14:00 Pulse 81 02/15/20 14:00 Resp 16 02/15/20 14:00 BP 151/67 H 02/15/20 14:00 Pulse Ox 99 06
[2020-02-15 20:00] VITALS: PULSE 66; RESP 16; O2SAT 95
[2020-02-15 21:00] VITALS: BP 133/65; PULSE 66; RESP 16; TEMP 36.1; O2SAT 95
[2020-02-16 05:47] VITALS: BP 128/72; PULSE 74; RESP 16; TEMP 36.7; O2SAT 97
[2020-02-16 06:23] LABS: Hematocrit 31.1 % (37.0-47.0); Hemoglobin 9.7 g/dL (12.0-15.0); Mean Corpuscular HGB Conc 31.2 g/dl (32-36); Mean Corpuscular Hemoglobin 23.7 pg (26-34); Mean Platelet Volume 9.3 fl (7.4-10.4); Platelet Count Result 366 k/mm3 (150-375); Red Blood Count 4.09 M/mm3 (4.2-5.4); Red Cell Distribution Width 17.8 % (11.5-14.5); White Blood Count 9.1 K/mm3 (4.5-10.0)
[2020-02-16 06:41] LABS: Alanine Aminotransferase 57 U/L (4-35); Albumin Level 3.9 g/dL (3.5-5.1); Alkaline Phosphatase 107 U/L (38-126); Aspartate Amino Transferase 30 U/L (14-36); Bilirubin,Total 0.2 mg/dL (0.2-1.3); Blood Urea Nitrogen 6 mg/dL (7-17); Calcium 8.7 mg/dL (8.4-10.2); Carbon Dioxide 27 mmol/L (22-30); Chloride 106 mmol/L (98-107); Estimated CRCL calculation 84 ml/min; Estimated Glomerular Filt Rate > 60; Glucose 113 mg/dL (65-105); Magnesium 1.7 mg/dL (1.6-2.3); Potassium 3.2 mmol/L (3.4-5.0); Sodium 140 mmol/L (137-145)
[2020-02-16] MEDS: FLUTICASONE/SALMETEROL 230-21 MCG INHALER 1 PUFF 2 PUFF INHALATION (08:10)
[2020-02-16] MEDS: FLUTICASONE PROPIONATE 0.05% NA SPR 16 GM BTL (*BKC) 1 SPRAY NASAL (08:32)
[2020-02-16] MEDS: POTASSIUM CHLORIDE 20 MEQ TABLET.ER PO (08:32)
[2020-02-16] MEDS: PANTOPRAZOLE SOD SESQUIHYDRATE 20 MG TAB PO (08:32)
--- NOTE | 2020-02-16 11:49 | PM.DS ---
DS: Admitting Diagnosis Admitting Diagnosis Admitting Diagnosis: Partial intestinal obstruction, unspecified as to cause DS: Discharge Diagnosis Discharge Diagnosis (1) Partial small bowel obstruction: Onset Date: ~02/12/20 Code(s): K56.600 - Partial intestinal obstruction, unspecified as to cause Status: Acute Assessment and Plan: History of multiple abdominal surgeries in the past and small-bowel obstruction. SBFT study yesterday shows findings consistent with adynamic ileus, although having BMs today. She continues to have more formed stools today and tolerating her soft diet this morning. Diet advanced per General Surgery; likely discharge on low residue diet at discharge F/u with PCP and Dr. Uribe per their instructions d/c home (2) Chronic anemia: Onset Date: Unknown Code(s): D64.9 - Anemia, unspecified Status: Acute Assessment and Plan: H&H is stable. Iron panel, vitamin B12, folic acid are all normal. Stool was negative for occult blood. No acute signs of bleeding at this time. Will do CBC next week for further monitoring F/u with PCP (3) Gastroesophageal reflux disease: Onset Date: Unknown Code(s): K21.9 - Gastro-esophageal reflux disease without esophagitis Status: Acute Assessment and Plan: Will resume home pantoprazole PO (4) Chronic obstructive pulmonary disease: Onset Date: Unknown Code(s): J44.9 - Chronic obstructive pulmonary disease, unspecified Status: Acute Assessment and Plan: Slight left sided rhonchi on exam. No complaints today Will continue her home inhalers. F/u with PCP (5) Hypokalemia: Code(s): E87.6 - Hypokalemia Status: Acute Assessment and Plan: K 3.2 today; replaced. Likely secondary to SBO/decreased PO intake previous days BMP next week for follow up. Anticipate improvement with increased PO intake DS: Summary Hospital Course Reason for hospitalization: SBO Hospital Course: Patient is a 59 yo F with history of several abdominal surgeries and small bowel obstructions who presented to the emergency department on 02/11 from home for evaluation of abdominal pain. While in the ED, patient had CT abdomen and pelvis performed which revealed findings suggestive of a partial small bowel obstruction; NGT was subsequently placed and patient placed on NPO diet. Patient admitted under this setting. Please see H&P for further details. Presenting VS: Temp Pulse Resp BP Pulse Ox 97.3 F L 70 18 109/66 96 02/12/20 15:04 02/12/20 15:04 02/12/20 15:04 02/12/20 15:04 02/12/20 15:04 Presenting Pertinent labs: WBC 13.9k, H&H 11.1/36.0, MCV 76.9. CBC, chemistry, UA, and stool occult otherwise unremarkable. Micro: none Imaging: Abdomen/Pelvis CT 02/12/20 17:12 IMPRESSION: 1. Chronically dilated small bowel with transition point at a small bowel anastomosis, consistent with partial small bowel obstruction. Abdomen X-Ray 02/12/20 18:11 IMPRESSION: 1. Nasogastric tube tip in the stomach. 2. Chronically dilated small bowel, consistent with partial small bowel obstruction Abdomen X-Ray 02/13/20 14:42 IMPRESSION: 1. Chronically dilated small bowel, consistent with partial small bowel obstruction. Abdomen X-Ray 02/14/20 08:14 IMPRESSION: 1. Chronically dilated small bowel, consistent with partial small bowel obstruction. Upper GI and Small Bowel X-Ray 02/15/20 10:52 IMPRESSION: 1. Chronically dilated small bowel with prompt passage of contrast to the colon, consistent with adynamic ileus. ECG: none Patient was admitted to the hospitalist service for further evaluation for partial bowel obstruction; Dr. Uribe (General Surgery) was consulted for further input/manageme
--- NOTE | 2020-02-16 12:07 | PM.PNGS ---
Progress Note: A&P Assessment and Plan (1) Partial small bowel obstruction: Onset Date: ~02/12/20 Code(s): K56.600 - Partial intestinal obstruction, unspecified as to cause Status: Acute Assessment and Plan: Patient continues to clinically improve. SBFT showed transit to the colon in 30 minutes with some chronically dilated loops of small bowel. Advanced to a soft diet and tolerating well. Okay from a surgical standpoint to discharge the patient today. Would recommend following a low fiber diet initially after discharge. Will have her follow-up with Dr. Uribe in 2 weeks as an outpatient. Continue Miralax and Metamucil daily. (2) Chronic obstructive pulmonary disease: Onset Date: Unknown Code(s): J44.9 - Chronic obstructive pulmonary disease, unspecified Status: Acute (3) Gastroesophageal reflux disease: Onset Date: Unknown Code(s): K21.9 - Gastro-esophageal reflux disease without esophagitis Status: Acute (4) Chronic anemia: Onset Date: Unknown Code(s): D64.9 - Anemia, unspecified Status: Acute Additional Plan Discussed the patient's case and plan of care with Dr. Uribe. Subjective Subjective Date/Time Seen: 02/16/20 12:07 Patient reports: no new complaints, feels better, pain is less, tolerating a regular diet, flatus and bowel movement Interval history: Patient seen and examined. Tolerating a soft diet without nausea, vomiting, or bloating. Denies any abdominal pain. Reports feeling some discomfort in her abdomen that feels like gas pains but no pain like she was having previously. Reports 4 liquid BMs today. No other complaints at this time. Patient has been educated in the past on a low fiber diet. Review of Systems Review of Systems: All systems reviewed & are unremarkable except as noted in HPI and below Exam Const: General: cooperative, no acute distress, alert and awake Orientation/consciousness: patient oriented x3 GI: Inspection: normal to inspection and non-distended GI Palp: Yes Soft to palpation, Yes Tenderness to palpation present (GI) (mildly diffusely tender, significantly improved), No Guarding due to palpation present (GI), No Hernia present and No Rebound tenderness present Auscultation: normal bowel sounds Skin: General skin exam: normal color and no rashes or lesions noted Neuro: General: patient oriented x3 and no focal motor deficits Extrem: General: normal to inspection, no clubbing, cyanosis or edema and no calf tenderness Psych: Appearance: grossly normal and well kempt Mental Status: mental status grossly normal Speech and movement: Normal speech and movement present Attitude: cooperative Insight: Good insight present (Psych) Objective Data Vital Signs Vital Signs: Vital Signs - 24 hr 02/15/20 14:00 02/15/20 20:00 02/15/20 21:00 Temperature 36.6 C 36.1 C L Pulse Rate 81 66 66 Respiratory Rate 16 16 16 Blood Pressure 151/67 H 133/65 Pulse Oximetry 99 95 95 02/16/20 05:47 Temperature 36.7 C Pulse Rate 74 Respiratory Rate 16 Blood Pressure 128/72 Pulse Oximetry 97 Intake/Output Intake/Output: Intake & Output 02/13/20 02/14/20 02/15/20 02/16/20 23:59 23:59 23:59 23:59 Intake Total 2100 2100 2830 840 Output Total 1400 700 450 Balance 700 1400 2380 840 Meds/Results Medications: Active Medications Generic Name Dose Route Start Last Admin Trade Name Freq PRN Reason Stop Dose Admin Hydrocodone Bitart/Acetaminophen 1 tab 02/15/20 17:28 02/16/20 08:33 [place] 5-325 Mg PO 1 tab Q6H PRN Administration Pain Rated 4-6 Albuterol 2 puff 02/12/20 21:44 Proventil Hfa INHALATION Q4H PRN Shortness Of Breath Or Wheezing Fluticasone Propionate 1 spray 02/13/20 09:00 02/16/20 08:32 Flonase 0.05% Nasal [place] NASAL 1 spray DAILY ARELI Administration Ipratropium [place] 0.5 mg 02/12/20 21:44 Atrovent Neb INHALATION Q4H PRN Shortness
== END 2020-02-16 13:39 | disposition home or self-care (01) | DRG 389 ==
LOC: ANHED 18:29 → ANH3MED 18:45
PROVIDERS: General Practice; Physician Assistant; Surgery; Admitting Provider Family Medicine; Emergency Provider Emergency Medicine; PCP Emergency Medicine; Visit Provider Physician Assistant
DX: K56.600 Partial intestinal obstruction, unspecified as to cause (principal); J96.11 Chronic respiratory failure with hypoxia; Z99.81 Dependence on supplemental oxygen; D50.9 Iron deficiency anemia, unspecified; K21.9 Gastro-esophageal reflux disease without esophagitis; J44.9 Chronic obstructive pulmonary disease, unspecified; E87.6 Hypokalemia; F17.210 Nicotine dependence, cigarettes, uncomplicated; G47.33 Obstructive sleep apnea (adult) (pediatric); E03.9 Hypothyroidism, unspecified; E78.5 Hyperlipidemia, unspecified; G62.9 Polyneuropathy, unspecified; E55.9 Vitamin D deficiency, unspecified; Z79.899 Other long term (current) drug therapy; Z98.890 Other specified postprocedural states
CPT/HCPCS: 36415; 74019; 74177; 74250; 80048; 80053; 81001; 82274; 82607; 82728; 82746; 83540; 83550; 83605; 83690; 83735; 85025; 85027; 94640; 96361; 96365; 96375; 96376; 99285; A9270; C9113; G0378; J0131; J2270; J3480; J7030; Q9967

== ENCOUNTER 2020-02-21 06:58 | Outpatient (CLI) | payer MEDICARE, MEDICAID, SELFPAY ==
[2020-02-21 07:24] LABS: Hematocrit 30.3 % (37.0-47.0); Hemoglobin 9.3 g/dL (12.0-15.0); Mean Corpuscular HGB Conc 30.7 g/dl (32-36); Mean Corpuscular Hemoglobin 24.1 pg (26-34); Mean Corpuscular Volume 78.5 fl (80-100); Mean Platelet Volume 9.7 fl (7.4-10.4); Platelet Count Result 403 k/mm3 (150-375); Red Blood Count 3.86 M/mm3 (4.2-5.4); White Blood Count 9.6 K/mm3 (4.5-10.0)
[2020-02-21 07:41] LABS: Blood Urea Nitrogen 18 mg/dL (7-17); Calcium 8.8 mg/dL (8.4-10.2); Carbon Dioxide 27 mmol/L (22-30); Chloride 105 mmol/L (98-107); Estimated Glomerular Filt Rate > 60; Glucose 94 mg/dL (65-105); Potassium 4.1 mmol/L (3.4-5.0); Sodium 139 mmol/L (137-145)
== END 2020-02-21 06:59 | disposition home or self-care (01) ==
PROVIDERS: PCP Emergency Medicine; Visit Provider Physician Assistant
DX: E87.6 Hypokalemia (principal); D64.9 Anemia, unspecified
CPT/HCPCS: 36415; 80048; 85027

== ENCOUNTER 2020-03-28 11:11 | Outpatient (CLI) | payer MEDICARE, MEDICAID, SELFPAY ==
[2020-03-28 11:42] LABS: Basophils Absolute Auto 0.1 K/mm3 (0.0-0.1); Basophils Percent Auto 0.6 % (0.2-1.2); Eosinophils Absolute Auto 0.1 K/mm3 (0-0.3); Eosinophils Percent Auto 1.2 % (0-4.4); Hematocrit 29.8 % (37.0-47.0); Hemoglobin 9.1 g/dL (12.0-15.0); Immature Granulocyte Absolute 0.03 K/mm3 (0.00-0.031); Immature Granulocyte Percent A 0.3 % (0-0.5); Lymphocytes Absolute Auto 3.66 K/mm3 (0.9-3.2); Lymphocytes Percent Auto 40.4 % (18.3-44.2); Mean Corpuscular HGB Conc 30.5 g/dl (32-36); Mean Corpuscular Hemoglobin 23.1 pg (26-34); Mean Corpuscular Volume 75.6 fl (80-100); Monocytes Absolute Auto 0.6 K/mm3 (0.1-0.6); Monocytes Percent Auto 6.1 % (2.6-8.5); Neutrophils Absolute Auto 4.7 K/mm3 (1.3-6.7); Neutrophils Percent Auto 51.4 % (45.5-73.1); Platelet Count Result 400 k/mm3 (150-375); Red Blood Count 3.94 M/mm3 (4.2-5.4); Red Cell Distribution Width 19.4 % (11.5-14.5); White Blood Count 9.1 K/mm3 (4.5-10.0)
[2020-03-31 17:22] LABS: Vitamin D 1,25 (OH)2 Total 51 pg/mL (18-72); Vitamin D2 1,25 (OH)2 <8 pg/mL; Vitamin D3 1,25 (OH)2 51 pg/mL
== END 2020-03-28 11:12 | disposition home or self-care (01) ==
LOC: ANHLAB 11:14
PROVIDERS: PCP Emergency Medicine; Visit Provider Emergency Medicine
DX: G89.29 Other chronic pain (principal); M54.5 Low back pain; E55.9 Vitamin D deficiency, unspecified
CPT/HCPCS: 36415; 82652; 85025

== ENCOUNTER 2020-06-26 08:09 | Outpatient (CLI) | payer MEDICARE, MEDICAID, SELFPAY ==
[2020-06-26 08:41] LABS: Alanine Aminotransferase 12 U/L (4-35); Albumin Level 4.1 g/dL (3.5-5.1); Alkaline Phosphatase 100 U/L (38-126); Anion Gap 6 mmol/L (8-16); Aspartate Amino Transferase 24 U/L (14-36); Bilirubin,Total 0.3 mg/dL (0.2-1.3); Blood Urea Nitrogen 17 mg/dL (7-17); Calcium 9.2 mg/dL (8.4-10.2); Carbon Dioxide 30 mmol/L (22-30); Chloride 105 mmol/L (98-107); Cholesterol 220 mg/dL (0-200); Estimated Glomerular Filt Rate > 60; Glucose 105 mg/dL (65-105); HDL Direct 55 mg/dL; Potassium 4.4 mmol/L (3.4-5.0); Sodium 141 mmol/L (137-145); Triglycerides 121 mg/dL (<150)
[2020-06-26 08:53] LABS: LDL Cholesterol Direct 128 mg/dL
[2020-06-26 08:59] LABS: Iron 19 ug/dL (37-170)
[2020-06-26 09:09] LABS: Percent Iron Saturation 4 % (20-50)
[2020-06-26 09:45] LABS: Folic Acid 10.2 ng/mL (2.76->20)
[2020-06-29 10:13] LABS: Vitamin D 1,25 (OH)2 Total 68 pg/mL (18-72); Vitamin D2 1,25 (OH)2 <8 pg/mL; Vitamin D3 1,25 (OH)2 68 pg/mL
== END 2020-06-26 08:10 | disposition home or self-care (01) ==
PROVIDERS: PCP Emergency Medicine; Visit Provider Emergency Medicine
DX: E55.9 Vitamin D deficiency, unspecified (principal); D64.9 Anemia, unspecified; E87.6 Hypokalemia; E78.5 Hyperlipidemia, unspecified
CPT/HCPCS: 36415; 80053; 80061; 82607; 82652; 82746; 83540; 83550

== ENCOUNTER 2020-07-14 12:28 | Emergency (ER) | payer MEDICARE, MEDICAID, SELFPAY ==
[2020-07-14] VITALS (14 sets, daily range): BP systolic 121–188; BP diastolic 56–104; PULSE 55–78; RESP 15–30; TEMP 36.2; O2SAT 96–100
--- NOTE | ~2020-07-14 | XR_ITS ---
EXAMINATION: XR chest 2V EXAM DATE: 07/14/2020 13:33 INDICATION: cough and cold symptoms, shortness of breath. TECHNIQUE: Frontal and lateral projections of the chest obtained and reviewed. Comparison is made to prior examination from 07/31/2018. FINDINGS: Interval resolution of previously seen patchy left lower lobe atelectasis or infiltrate. S ome linear right midlung zone atelectasis. The lungs are otherwise clear. There are no pleural effus ions. The cardiomediastinal silhouette is within normal limits. There is no pneumothorax suspected. There are mild bony degenerative changes. There are cholecystectomy clips. IMPRESSION: Linear right midlung zone atelectasis. Reviewed, dictated and finalized at location B. [employer]
--- NOTE | 2020-07-14 12:30 | ECG_ITS ---
Measurements Intervals [place] Rate: 62 P: 51 NE: 168 QRS: 71 QRSD: 84 T: 61 QT: 411 QTc: 418 Interpretive Statements SINUS RHYTHM BASELINE ARTIFACT- I, II, III, AVR, AVL NORMAL ECG Electronically Signed On 07-14-2020 13:31:25 [employer]ARD MOTOR OPERATOR by Jean Bush D.O.
[2020-07-14 12:50] LABS: Basophils Absolute Auto 0.1 K/mm3 (0.0-0.1); Basophils Percent Auto 0.6 % (0.2-1.2); Eosinophils Absolute Auto 0.1 K/mm3 (0-0.3); Eosinophils Percent Auto 1.4 % (0-4.4); Hematocrit 33.9 % (37.0-47.0); Hemoglobin 10.1 g/dL (12.0-15.0); Immature Granulocyte Absolute 0.04 K/mm3 (0.00-0.031); Immature Granulocyte Percent A 0.5 % (0-0.5); Lymphocytes Absolute Auto 3.46 K/mm3 (0.9-3.2); Lymphocytes Percent Auto 39.5 % (18.3-44.2); Mean Corpuscular HGB Conc 29.8 g/dl (32-36); Mean Corpuscular Hemoglobin 22.7 pg (26-34); Mean Corpuscular Volume 76.4 fl (80-100); Mean Platelet Volume 9.1 fl (7.4-10.4); Monocytes Absolute Auto 0.6 K/mm3 (0.1-0.6); Neutrophils Absolute Auto 4.5 K/mm3 (1.3-6.7); Platelet Count Result 451 k/mm3 (150-375); Red Blood Count 4.44 M/mm3 (4.2-5.4); Red Cell Distribution Width 20.6 % (11.5-14.5); White Blood Count 8.8 K/mm3 (4.5-10.0)
[2020-07-14 13:03] LABS: Alanine Aminotransferase 13 U/L (4-35); Albumin Level 4.2 g/dL (3.5-5.1); Alkaline Phosphatase 91 U/L (38-126); Anion Gap 6 mmol/L (8-16); Aspartate Amino Transferase 24 U/L (14-36); Bilirubin,Total 0.2 mg/dL (0.2-1.3); Blood Urea Nitrogen 16 mg/dL (7-17); Calcium 9.2 mg/dL (8.4-10.2); Carbon Dioxide 30 mmol/L (22-30); Chloride 107 mmol/L (98-107); Estimated CRCL calculation 70 ml/min; Estimated Glomerular Filt Rate > 60; Glucose 104 mg/dL (65-105); Sodium 143 mmol/L (137-145)
--- NOTE | 2020-07-14 14:02 | ED.SOB ---
HPI - SOB/Dyspnea General Chief Complaint: Shortness of Breath/Dyspnea Stated Complaint: SOB Time Seen by Provider: 07/14/20 12:50 Source: patient Mode of arrival: ambulatory Limitations: no limitations History of Present Illness HPI Narrative: Patient is a 59-year-old female with a history of hypertension, COPD who presents for evaluation cough and shortness of breath. Patient reporting increased cough and shortness of breath over the past 3 days. She has had mildly increased sputum production. Patient states she typically requires 2 L oxygen via nasal cannula at all times, but oxygen saturations have been normal here at our facility. Patient is also reporting a right-sided chest pain that extends under her breast which has been present for 3 days. She denies pleuritic pain. She denies hemoptysis. She denies any fever or chills. No loss of sense of taste or smell. Patient reports she has had some slight wheezing over the past 3 days as well. Related Data Home Medications Medication Instructions Recorded Confirmed albuterol sulfate 90 mcg/actuation 2 inhalation INHALATION Q4H PRN 09/21/19 03/01/20 aerosol inhaler fluticasone 500 mcg-salmeterol 50 1 inhalation INHALATION Q12H 09/21/19 03/01/20 mcg/dose blistr powdr for inhalation fluticasone propionate 50 1 spray NASAL DAILY 09/21/19 03/01/20 mcg/actuation nasal spray,suspension modafinil 200 mg tablet 200 mg PO QAM 09/21/19 03/01/20 peg 400-propylene glycol 0.4 %-0.3 1 drop EACH EYE DAILY 09/21/19 03/01/20 % eye drops ropinirole 1 mg tablet 1 mg PO DAILY tablet 09/21/19 03/01/20 Allergies Allergy/AdvReac Type Severity Reaction Status Date / Time latex Allergy Unknown unknown Verified 07/14/20 13:34 Penicillins Allergy Unknown unknown Verified 07/14/20 13:34 Review of Systems Review of Systems: Narrative: CONSTITUTIONAL: Denies fever, chills, or sweats. EYES: Denies visual changes, redness, or discharge. ENT: Denies rhinorrhea, congestion, sore throat, or otalgia. CARDIOVASCULAR: Reports right-sided chest pain without leg edema RESPIRATORY: Reports cough, shortness of breath and wheezing GASTROINTESTINAL: Denies abdominal pain, nausea, vomiting, or diarrhea. GENITOURINARY: Denies dysuria or hematuria. SKIN: Denies rash or itching. MUSCULOSKELETAL: Denies back pain, joint pain, or myalgia. NEUROLOGIC: Denies headache, numbness, or weakness. [facility] Past Medical History Medical History (Updated 07/14/20 @ 17:11 by Bel Dugan MD) Chronic anemia (Unknown) Chronic back pain Chronic obstructive pulmonary disease (Unknown) Chronic respiratory failure with hypoxia On 2 liters nasal cannula p.r.n. Depression with anxiety Dyslipidemia Gastroesophageal reflux disease (Unknown) Hypothyroidism Migraine headache Obstructive sleep apnea Peripheral neuropathy Restless leg syndrome, controlled Scoliosis Small bowel obstruction due to adhesions Previous, multiple admissions for such. Vitamin D deficiency Surgical History Surgical History Bladder prolapse Repair of bladder prolapse. History of bilateral cataract extraction History of bowel resection Secondary to bowel obstruction with colostomy and subsequent takedown. History of cholecystectomy History of eye surgery Treatment of amblyopia. History of tonsillectomy and adenoidectomy Rectal prolapse Rectal prolapse repair. Status post small bowel resection (~01/2019) Exploratory laparotomy with resection of 36 centimeters of the small bowel with extensive adhesiolysis and ileal-ileal anastomosis. Family History Family History Father Cirrhosis Mother Emphysema of lung Social History Social History Social History: The patient lives in [place] with her significant other, Luis Fernando. 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 S
[2020-07-14] MEDS: ASPIRIN 81 MG CHEWABLE TABLET 324 MG PO (14:05)
[2020-07-14 14:22] LABS: Alveolar/Arterial O2 Gradient 22.9 mmHg; Base Excess ABG 0.5 mEq/l (+/-2.0); Carboxyhemoglobin 1.1 % THb (0-2.0); Fractional Inspired Oxygen 21 %; HCO3 ABG 24.9 mEq/l (22.0-26.0); Methemoglobin ABG 0.1 %THb (0-1.5); Oxygen Content ABG 13.8 %vol (16.0-22.0); Oxygen Saturation ABG 96.1 % (95.0-100.0); PCO2 ABG 39.1 mmHg (35.0-45.0); PO2 FiO2 Ratio Arterial Blood 3.81 %; Reduced Hemoglobin 4.8 %THb (0-5.0); Total Hemoglobin 10.4 g/dL (12.0-18.0); pH ABG 7.422 (7.350-7.450)
[2020-07-14 14:23] LABS: Device ROOM AIR; Site Drawn LEFT BRACHIAL
[2020-07-14] MEDS: methylPREDNISolone SOD SUCC 125 MG VIAL IV PUSH (15:15)
[2020-07-14] MEDS: MAGNESIUM SULF 2 GM/WATER 50ML 2 GM/50 ML BAG IVPB (15:16)
[2020-07-14] MEDS: SODIUM CHLORIDE 0.9% IV 1,000 ML 999 ML IV CONT (15:16)
[2020-07-14] MEDS: IPRATROPIUM BR 0.02% INH SOLN 0.5 MG/2.5 ML VIAL 1 MG INHALATION (15:23)
[2020-07-14] MEDS: ALBUTEROL SULFATE NEB 2.5 MG/0.5 ML INH 10 MG INHALATION (15:24)
[2020-07-14 15:31] LABS: INR 0.9
[2020-07-14 15:32] LABS: Partial Thromboplastin Time 29.7 SECONDS (22.3-36.8)
[2020-07-14 15:39] LABS: NT Pro B Type Natriuretic Pept 98 PG/ML (5-100); Troponin I < 0.012 ng/mL (0.000-0.034)
== END 2020-07-14 17:46 | disposition home or self-care (01) ==
PROVIDERS: Emergency Provider Emergency Medicine; PCP Emergency Medicine
DX: J44.1 Chronic obstructive pulmonary disease with (acute) exacerbation (principal); I10 Essential (primary) hypertension; Z87.891 Personal history of nicotine dependence; D64.9 Anemia, unspecified; J96.11 Chronic respiratory failure with hypoxia; E78.5 Hyperlipidemia, unspecified; K21.9 Gastro-esophageal reflux disease without esophagitis; E03.9 Hypothyroidism, unspecified; G47.33 Obstructive sleep apnea (adult) (pediatric); G25.81 Restless legs syndrome; G62.9 Polyneuropathy, unspecified; E55.9 Vitamin D deficiency, unspecified
CPT/HCPCS: 36415; 36600; 71046; 80053; 82375; 82805; 83050; 83880; 84484; 85025; 85610; 85730; 93005; 96365; 96375; 99284; A9270; J2930; J3475; J7030

== ENCOUNTER 2020-12-05 11:13 | Outpatient (CLI) | payer MEDICARE, MEDICAID, SELFPAY ==
--- NOTE | ~2020-12-05 | XR_ITS ---
EXAMINATION: XR cervical spine 4-5V EXAM DATE: 12/05/2020 11:43 INDICATION: Cervical myelopathy, disc disorder. No known recent injury. TECHNIQUE: Cervical spine frontal, lateral, lateral swimmers, and open-mouth odontoid projections. Submentovertex projection. Comparison is made to prior examination from 04/15/2013. FINDINGS: Posterior fusion at C4, C5 and C6. There is mild to moderate disc disease at C4-5, mild at other cervical levels. Evidence of to moderate cervical arthropathy, causing some amount of mid cervi carmen neural foraminal stenosis. There is mild upper thoracic levocurvature, could be positional or sco liosis. The odontoid process is intact. The lateral masses of C1 line up with C2. Prevertebral soft tissue and pre-dens space are within normal limits. There are no acute fractures identified. Lung api nathan unremarkable. Consider correlating exam with cervical spine MR from 11/08/2019. IMPRESSION: Moderate cervical arthropathy. Reviewed, dictated and finalized at location A.
== END 2020-12-05 11:14 | disposition home or self-care (01) ==
PROVIDERS: PCP Emergency Medicine; Visit Provider Nurse Practitioner Gerontology
DX: M50.020 Cervical disc disorder with myelopathy, mid-cervical region, unspecified level (principal)
CPT/HCPCS: 72050

== ENCOUNTER 2021-01-11 09:12 | Outpatient (CLI) | payer MEDICARE, MEDICAID, SELFPAY ==
[2021-01-11 10:05] LABS: Alanine Aminotransferase 10 U/L (4-35); Albumin Level 4.2 g/dL (3.5-5.1); Alkaline Phosphatase 97 U/L (38-126); Anion Gap 4 mmol/L (8-16); Aspartate Amino Transferase 22 U/L (14-36); Bilirubin,Total < 0.1 mg/dL (0.2-1.3); Blood Urea Nitrogen 19 mg/dL (7-17); Calcium 9.2 mg/dL (8.4-10.2); Carbon Dioxide 30 mmol/L (22-30); Chloride 106 mmol/L (98-107); Cholesterol 210 mg/dL (0-200); Estimated Glomerular Filt Rate > 60; Glucose 101 mg/dL (65-105); HDL Direct 63 mg/dL; Potassium 4.2 mmol/L (3.4-5.0); Sodium 140 mmol/L (137-145); Triglycerides 78 mg/dL (<150)
[2021-01-11 10:15] LABS: LDL Cholesterol Direct 111 mg/dL
== END 2021-01-11 09:13 | disposition home or self-care (01) ==
PROVIDERS: PCP Emergency Medicine; Visit Provider Emergency Medicine
DX: E78.5 Hyperlipidemia, unspecified (principal)
CPT/HCPCS: 36415; 80053; 80061

== ENCOUNTER 2021-03-01 08:57 | Outpatient (CLI) | payer MEDICARE, MEDICAID, SELFPAY ==
--- NOTE | ~2021-03-01 | MM_ITS ---
EXAMINATION: MM screening [place] BI w renato HISTORY: Screening TECHNIQUE: Craniocaudal and mediolateral oblique 3-D tomosynthesis images were obtained and synthetic 2-D images were generated. CAD analysis was submitted and interpreted. COMPARISON: Comparison to multiple prior studies sequentially, with oldest reviewed study dated 03/22. BREAST PARENCHYMAL COMPOSITION: There are scattered areas of fibroglandular density. FINDINGS: The right breast is stable without evidence for malignancy. There are developing asymmetrie s in the upper outer quadrant of the left breast. IMPRESSION: 1. Developing left breast asymmetries, upper outer quadrant. 2. Additional mammographic views and possible breast ultrasound are recommended. BI-RADS Category 0: Incomplete: Needs additional imaging evaluation. Reviewed, dictated and finalized at location A. IMPRESSION: 1. Developing left breast asymmetries, upper outer quadrant. 2. Additional mammographic views and possible breast ultrasound are recommended . BI-RADS Category 0: Incomplete: Needs additional imaging evaluation.
== END 2021-03-01 08:58 | disposition home or self-care (01) ==
LOC: ANHIMG 09:05
PROVIDERS: PCP Emergency Medicine; Visit Provider Emergency Medicine
DX: Z12.31 Encounter for screening mammogram for malignant neoplasm of breast (principal); R92.8 Other abnormal and inconclusive findings on diagnostic imaging of breast
CPT/HCPCS: 77063; 77067

== ENCOUNTER 2021-03-28 12:03 | Outpatient (CLI) | payer MEDICARE, MEDICAID, SELFPAY ==
--- NOTE | ~2021-03-28 | MMUS_ITS ---
EXAMINATION: MM diagnostic mammo unilat LT, US breast LT limited HISTORY: Developing left breast asymmetries reported in upper outer quadrant of 03/01/2021 screening ma mmogram TECHNIQUE: Additional 3-D tomosynthesis images of left breast were performed and synthetic 2-D images were generated. Rolled medial craniocaudal and rolled lateral craniocaudal views. CAD analysis was s ubmitted and interpreted. High resolution upper outer and lower-outer quadrant left breast ultrasound was performed. COMPARISON: 03/01/2021, 03/22/2019 bilateral digital screening mammogram examinations FINDINGS: MAMMOGRAPHIC FINDINGS: Chronic mild fibroglandular asymmetry is noted in the outer left breast. Small left breast masses are not excluded. Ultrasound examination of the upper and lower outer quadrants was performed. ULTRASOUND: No suspicious mass or shadowing, cyst or other significant sonographic finding was identified in the upper outer or lower outer quadrants. IMPRESSION: 1. No mammographic evidence of malignancy 2. Routine mammographic screening is recommended. BI-RADS Category 1: Negative Reviewed, dictated and finalized at location A. IMPRESSION: 1. No mammographic evidence of malignancy 2. Routine mammographic screening is recommended. BI-RADS Category 1: Negative
== END 2021-03-28 12:04 | disposition home or self-care (01) ==
LOC: ANHIMG 12:04
PROVIDERS: PCP Emergency Medicine; Visit Provider Emergency Medicine
DX: N64.89 Other specified disorders of breast (principal)
CPT/HCPCS: 76642; 77065

== ENCOUNTER 2021-04-30 10:03 | Outpatient (CLI) | payer MEDICARE, MEDICAID, SELFPAY ==
[2021-04-30 10:38] LABS: Alanine Aminotransferase 12 U/L (4-35); Albumin Level 4.2 g/dL (3.5-5.1); Alkaline Phosphatase 102 U/L (38-126); Anion Gap 7 mmol/L (8-16); Aspartate Amino Transferase 24 U/L (14-36); Bilirubin,Total 0.3 mg/dL (0.2-1.3); Blood Urea Nitrogen 15 mg/dL (7-17); Calcium 8.9 mg/dL (8.4-10.2); Carbon Dioxide 27 mmol/L (22-30); Chloride 106 mmol/L (98-107); Cholesterol 202 mg/dL (0-200); Estimated Glomerular Filt Rate > 60; Glucose 100 mg/dL (65-110); HDL Direct 53 mg/dL; Sodium 140 mmol/L (137-145); Triglycerides 116 mg/dL (<150)
[2021-04-30 10:51] LABS: LDL Cholesterol Direct 102 mg/dL
== END 2021-04-30 10:04 | disposition home or self-care (01) ==
PROVIDERS: PCP Emergency Medicine; Visit Provider Emergency Medicine
DX: E78.5 Hyperlipidemia, unspecified (principal); R53.83 Other fatigue
CPT/HCPCS: 36415; 80053; 80061

== ENCOUNTER 2021-05-08 10:12 | Outpatient (CLI) | payer MEDICARE, MEDICAID, SELFPAY ==
[2021-05-08 11:23] LABS: Basophils Percent Auto 0.3 % (0.2-1.2); Eosinophils Absolute Auto 0.1 K/mm3 (0-0.3); Eosinophils Percent Auto 0.9 % (0-4.4); Hemoglobin 7.9 g/dL (12.0-15.0); Immature Granulocyte Absolute 0.06 K/mm3 (0.00-0.031); Immature Granulocyte Percent A 0.5 % (0-0.5); Lymphocytes Percent Auto 25.4 % (18.3-44.2); Mean Corpuscular HGB Conc 28.2 g/dl (32-36); Mean Corpuscular Hemoglobin 18.9 pg (26-34); Mean Corpuscular Volume 66.8 fl (80-100); Mean Platelet Volume 9.2 fl (7.4-10.4); Monocytes Absolute Auto 0.6 K/mm3 (0.1-0.6); Monocytes Percent Auto 4.8 % (2.6-8.5); Neutrophils Absolute Auto 8.1 K/mm3 (1.3-6.7); Neutrophils Percent Auto 68.1 % (45.5-73.1); Platelet Count Result 547 k/mm3 (150-375); Red Blood Count 4.19 M/mm3 (4.2-5.4); Red Cell Distribution Width 22.6 % (11.5-14.5); White Blood Count 11.8 K/mm3 (4.5-10.0)
[2021-05-08 12:12] LABS: Alanine Aminotransferase 13 U/L (4-35); Albumin Level 4.1 g/dL (3.5-5.1); Alkaline Phosphatase 112 U/L (38-126); Anion Gap 7 mmol/L (8-16); Aspartate Amino Transferase 34 U/L (14-36); Bilirubin,Total 0.4 mg/dL (0.2-1.3); Blood Urea Nitrogen 17 mg/dL (7-17); Calcium 8.9 mg/dL (8.4-10.2); Carbon Dioxide 27 mmol/L (22-30); Chloride 103 mmol/L (98-107); Estimated Glomerular Filt Rate > 60; Glucose 98 mg/dL (65-110); Sodium 137 mmol/L (137-145)
== END 2021-05-08 10:13 | disposition home or self-care (01) ==
LOC: ANHLAB 10:16
PROVIDERS: PCP Emergency Medicine; Visit Provider Emergency Medicine
DX: R53.83 Other fatigue (principal); Z13.6 Encounter for screening for cardiovascular disorders
CPT/HCPCS: 36415; 80053; 84443; 85025

== ENCOUNTER 2021-05-16 10:04 | Outpatient (CLI) | payer MEDICARE, MEDICAID, SELFPAY ==
--- NOTE | ~2021-05-16 | XR_ITS ---
XR cervical spine 4-5V DATE: 05/16/2021 10:35 INDICATION: Cervical disc disorder with myelopathy. Surgery one year ago. TECHNIQUE: AP, open-mouth, swimmer's, lateral views in flexion, extension and neutral COMPARISON: 12/05/2020 cervical spine FINDINGS: Diffuse osteopenia. There is straightening of the cervical spine. There is levoscoliosis of the cervical and upper thoracic spine. No instability is evident on flexion or extension. Status post posterior spinal fusion on the right at C4, C5 and C6. There is moderate degenerative disc disease at C3-4 and moderately severe degenerative disc disease a t the 4 5, C5-6 and C6-7. No fracture or dislocation or locked facet or prevertebral soft tissue swelling. IMPRESSION: Status post C4, C5 and C6 posterior spinal fusion Straightening; levoscoliosis Multilevel degenerative disc disease Reviewed, dictated and finalized at location A.
== END 2021-05-16 10:05 | disposition home or self-care (01) ==
LOC: ANHIMG 10:10
PROVIDERS: PCP Emergency Medicine; Visit Provider Nurse Practitioner Gerontology
DX: M50.020 Cervical disc disorder with myelopathy, mid-cervical region, unspecified level (principal); Z98.1 Arthrodesis status; M50.30 Other cervical disc degeneration, unspecified cervical region
CPT/HCPCS: 72050

== ENCOUNTER 2021-08-10 08:24 | Outpatient (CLI) | payer MEDICARE, MEDICAID, SELFPAY ==
[2021-08-10 10:11] LABS: Basophils Absolute Auto 0.1 K/mm3 (0.0-0.1); Basophils Percent Auto 0.4 % (0.2-1.2); Eosinophils Absolute Auto 0.1 K/mm3 (0-0.3); Eosinophils Percent Auto 0.4 % (0-4.4); Hematocrit 29.7 % (37.0-47.0); Hemoglobin 8.2 g/dL (12.0-15.0); Immature Granulocyte Absolute 0.08 K/mm3 (0.00-0.031); Immature Granulocyte Percent A 0.6 % (0-0.5); Lymphocytes Absolute Auto 3.94 K/mm3 (0.9-3.2); Lymphocytes Percent Auto 28.5 % (18.3-44.2); Mean Corpuscular HGB Conc 27.6 g/dl (32-36); Mean Corpuscular Hemoglobin 18.7 pg (26-34); Mean Corpuscular Volume 67.7 fl (80-100); Mean Platelet Volume 9.2 fl (7.4-10.4); Monocytes Absolute Auto 0.9 K/mm3 (0.1-0.6); Monocytes Percent Auto 6.6 % (2.6-8.5); Neutrophils Absolute Auto 8.8 K/mm3 (1.3-6.7); Neutrophils Percent Auto 63.5 % (45.5-73.1); Platelet Count Result 590 k/mm3 (150-375); Red Blood Count 4.39 M/mm3 (4.2-5.4); Red Cell Distribution Width 22.7 % (11.5-14.5); White Blood Count 13.8 K/mm3 (4.5-10.0)
[2021-08-10 10:16] LABS: Iron 11 ug/dL (37-170)
[2021-08-10 10:30] LABS: Percent Iron Saturation 2 % (20-50)
[2021-08-10 10:46] LABS: Hypochromasia 2+ (NORMAL); Platelet Estimate Increased (Adequate)
[2021-08-10 10:47] LABS: Anisocytosis 1+ (NORMAL); Microcytosis 1+ (NORMAL); Ovalocytes 1+ (NORMAL); Target Cells 1+ (NORMAL)
== END 2021-08-10 08:25 | disposition home or self-care (01) ==
PROVIDERS: PCP Emergency Medicine; Visit Provider Emergency Medicine
DX: D64.9 Anemia, unspecified (principal)
CPT/HCPCS: 36415; 82607; 82746; 83540; 83550; 85025

== ENCOUNTER 2021-11-12 07:56 | Outpatient (CLI) | payer MEDICARE, MEDICAID, SELFPAY ==
[2021-11-12 08:18] LABS: Basophils Absolute Auto 0.1 K/mm3 (0.0-0.1); Basophils Percent Auto 0.7 % (0.2-1.2); Eosinophils Absolute Auto 0.1 K/mm3 (0-0.3); Eosinophils Percent Auto 1.3 % (0-4.4); Hematocrit 30.2 % (37.0-47.0); Hemoglobin 8.5 g/dL (12.0-15.0); Immature Granulocyte Absolute 0.05 K/mm3 (0.00-0.031); Immature Granulocyte Percent A 0.6 % (0-0.5); Lymphocytes Absolute Auto 2.31 K/mm3 (0.9-3.2); Lymphocytes Percent Auto 26.6 % (18.3-44.2); Mean Corpuscular HGB Conc 28.1 g/dl (32-36); Mean Corpuscular Hemoglobin 19.4 pg (26-34); Mean Corpuscular Volume 68.8 fl (80-100); Mean Platelet Volume 8.8 fl (7.4-10.4); Monocytes Absolute Auto 0.7 K/mm3 (0.1-0.6); Monocytes Percent Auto 7.5 % (2.6-8.5); Neutrophils Absolute Auto 5.5 K/mm3 (1.3-6.7); Neutrophils Percent Auto 63.3 % (45.5-73.1); Platelet Count Result 500 k/mm3 (150-375); Red Blood Count 4.39 M/mm3 (4.2-5.4); Red Cell Distribution Width 22.5 % (11.5-14.5); White Blood Count 8.7 K/mm3 (4.5-10.0)
[2021-11-12 08:28] LABS: Alanine Aminotransferase 11 U/L (4-35); Albumin Level 4.4 g/dL (3.5-5.1); Alkaline Phosphatase 108 U/L (38-126); Anion Gap 6 mmol/L (8-16); Aspartate Amino Transferase 27 U/L (14-36); Bilirubin,Total 0.3 mg/dL (0.2-1.3); Blood Urea Nitrogen 16 mg/dL (7-17); Calcium 8.6 mg/dL (8.4-10.2); Carbon Dioxide 28 mmol/L (22-30); Chloride 105 mmol/L (98-107); Estimated Glomerular Filt Rate > 60; Glucose 103 mg/dL (65-110); Potassium 4.1 mmol/L (3.4-5.0); Sodium 139 mmol/L (137-145)
[2021-11-12 08:39] LABS: Platelet Estimate Adequate (Adequate)
[2021-11-12 08:40] LABS: Anisocytosis 1+ (NORMAL)
[2021-11-12 08:41] LABS: Hypochromasia 1+ (NORMAL); Ovalocytes 1+ (NORMAL); Target Cells 1+ (NORMAL)
== END 2021-11-12 07:57 | disposition home or self-care (01) ==
PROVIDERS: PCP Emergency Medicine; Visit Provider Emergency Medicine
DX: D64.9 Anemia, unspecified (principal); Z13.6 Encounter for screening for cardiovascular disorders
CPT/HCPCS: 36415; 80053; 85025

== ENCOUNTER 2021-11-13 08:42 | Outpatient (CLI) | payer MEDICARE, MEDICAID, SELFPAY ==
[2021-11-13 09:26] LABS: Iron 19 ug/dL (37-170)
[2021-11-13 09:35] LABS: Percent Iron Saturation 4 % (20-50)
== END 2021-11-13 08:43 | disposition home or self-care (01) ==
PROVIDERS: PCP Emergency Medicine; Visit Provider Emergency Medicine
DX: D64.9 Anemia, unspecified (principal)
CPT/HCPCS: 36415; 83540; 83550

== ENCOUNTER 2021-12-27 18:08 | Inpatient (IN) | payer MEDICARE, MEDICAID, SELFPAY ==
--- NOTE | ~2021-12-27 | XR_ITS ---
XR abdomen NG/feed tube rechec DATE: 12/29/2021 01:43 INDICATION: Recheck NG tube position after advancement TECHNIQUE: Portable AP view on 12/29/2021 at 0134 hours COMPARISON: 12/28/2021 KUB FINDINGS: The NG tube has been advanced, the distal tip overlying the body of stomach, the proximal s aroldo-port 10 cm distal to the diaphragmatic hiatus. Dilated gas distended small bowel is noted overlying the mid to lower abdomen. Status post cholecystectomy. IMPRESSION: NG tube in satisfactory position Reviewed, dictated and finalized at Location A. Reviewed, dictated and finalized at location A.
--- NOTE | ~2021-12-27 | XR_ITS ---
XR abdomen NG/feed tube rechec DATE: 12/28/2021 23:58 INDICATION: 3 check NG tube placement after advancement TECHNIQUE: AP view on 12/28/2021 at 2354 hours COMPARISON: 12/28/2021 portable AP view at 1007 hours FINDINGS: NG tube extends approximately 7.3 cm distal to the diaphragmatic hiatus, the proximal side- port situated just proximal to the diaphragmatic hiatus. Tube advancement is recommended. Surgical loops, right upper quadrant, consistent with cholecystectomy.. Dilated small bowel segments overlying the mid abdomen, measuring in excess of 4 cm diameter. Moderat azeem prominent amount of fecal material in the colon. IMPRESSION: NG tube in proximal stomach; advancement is recommended Small bowel dilatation Reviewed, dictated and finalized at Location A. Reviewed, dictated and finalized at location A.
--- NOTE | ~2021-12-27 | CT_ITS ---
EXAMINATION: CT abdomen pelvis w con INDICATION: Abdominal pain TECHNIQUE: Computed tomographic images of the abdomen and pelvis were obtained after the administrati on of 100 cc of Omnipaque 350 intravenous contrast. The dose-length product (DLP) was 700.50 mGy-cm. Automated exposure control and iterative reconstruction technique were employed. COMPARISON: 02/12/2020, 02/01/2019 FINDINGS: Minimal dependent atelectasis is present in the lung bases. The heart size is normal. There is mild emphysema in the visualized portions of the lung bases. The gallbladder is surgically absent . There is chronic moderate enlargement of the common bile duct and central intrahepatic ducts which is likely due to post cholecystectomy state. There is a 12 mm cyst in the left hepatic lobe. The sple en, pancreas, and adrenal glands are normal. Cysts of the kidneys measure up to 3 cm on the right. No pathologically enlarged abdominal or pelvic lymph nodes are identified. There are multiple chronical ly dilated loops of small bowel which continue to the level of an abrupt transition at a small bowel to small bowel anastomosis in the left pelvis. The small bowel beyond the anastomosis is decompressed . There is no free intraperitoneal gas. There is a moderate volume of colonic stool. There is mild phill mbar spondylosis. IMPRESSION: 1. Chronically dilated small bowel loops with a transition point a small bowel anastomosis in the lef t pelvis, consistent with partial obstruction. Reviewed, dictated and finalized at location F. IMPRESSION: 1. Chronically dilated small bowel loops with a transition point a small bowel anastomosis in the left pelvis, consistent with partial obstruction.
--- NOTE | ~2021-12-27 | US_ITS ---
EXAMINATION: US abdomen limited DATE: 12/31/2021 16:24 INDICATION: Abnormal liver function tests. TECHNIQUE: Multiple grayscale and Doppler ultrasound images of the abdomen were obtained. COMPARISON: CT abdomen and pelvis 12/27/2021 FINDINGS: The visualized portions of the body of the pancreas are normal. There is an 11 mm cyst in t he liver. No liver surface nodularity. There is normal flow in main portal vein. The gallbladder is a bsent. The common duct is obscured. IMPRESSION: 1. No etiology for abnormal liver function tests. Reviewed, dictated and finalized at location B.
--- NOTE | ~2021-12-27 | XR_ITS ---
XR sm bowel follow through WS DATE: 12/29/2021 09:41 INDICATION: Abdominal pain, small bowel dilatation TECHNIQUE: Serial images of the abdomen and spot radiographs of the terminal ileum were obtained afte r administration of 450 CC dilute Omnipaque 350 contrast material by NG tube. COMPARISON: CT abdomen pelvis and subsequent KUB examinations of 12/28/2021 at 12/29/2021 FINDINGS: NG tube is present, distal tip in the distal stomach. Surgical clips, right upper quadrant, consistent with cholecystectomy. Contrast material passes without delay through the small bowel, reaching the colon 15 minutes. There is mid to distal small bowel dilatation with distal decompression/normal caliber. IMPRESSION: Dilated mid to distal small bowel without significant delay in transit of contrast izzy cardozo Reviewed, dictated and finalized at Location A. Reviewed, dictated and finalized at location A. IMPRESSION: Dilated mid to distal small bowel without significant delay in eduardo sit of contrast material
--- NOTE | ~2021-12-27 | XR_ITS ---
EXAMINATION: XR abdomen NG/feed tube insert INDICATION: Nasogastric tube placement TECHNIQUE: Portable AP KUB-NG at 1007 hours COMPARISON: CT from yesterday FINDINGS: The nasogastric tube is in the stomach. Dilated loops of small bowel are noted in the mid a bdomen. There are minimal airspace opacities in the left lung base. Cholecystectomy clips are noted. IMPRESSION: 1. Nasogastric tube in the stomach. 2. Mildly dilated small bowel loops, likely partial small bowel obstruction. 3. Left basilar airspace opacity, consistent with atelectasis versus pneumonia. Reviewed, dictated and finalized at location B.
[2021-12-27 18:11] VITALS: BP 162/104; PULSE 84; RESP 16; TEMP 36.4; O2SAT 97
[2021-12-27] MEDS: ONDANSETRON INJ 4 MG/2 ML VIAL IV PUSH ×2 (18:55→22:11)
[2021-12-27] MEDS: SODIUM CHLORIDE 0.9% IV 1,000 ML 999 ML IV CONT (18:55)
[2021-12-27] MEDS: MORPHINE SULFATE (*CRX) 4 MG/ML INJ IV PUSH ×2 (18:55→22:11)
[2021-12-27 18:56] LABS: Basophils Absolute Auto 0.1 K/mm3 (0.0-0.1); Basophils Percent Auto 0.6 % (0.2-1.2); Eosinophils Absolute Auto 0.1 K/mm3 (0-0.3); Eosinophils Percent Auto 1.5 % (0-4.4); Hemoglobin 12.7 g/dL (12.0-15.0); Immature Granulocyte Absolute 0.03 K/mm3 (0.00-0.031); Immature Granulocyte Percent A 0.3 % (0-0.5); Lymphocytes Absolute Auto 3.08 K/mm3 (0.9-3.2); Mean Corpuscular HGB Conc 30.2 g/dl (32-36); Mean Corpuscular Hemoglobin 24.6 pg (26-34); Mean Corpuscular Volume 81.4 fl (80-100); Mean Platelet Volume 9.4 fl (7.4-10.4); Monocytes Absolute Auto 0.6 K/mm3 (0.1-0.6); Monocytes Percent Auto 5.9 % (2.6-8.5); Neutrophils Absolute Auto 5.8 K/mm3 (1.3-6.7); Neutrophils Percent Auto 59.7 % (45.5-73.1); Platelet Count Result 372 k/mm3 (150-375); Red Blood Count 5.16 M/mm3 (4.2-5.4); White Blood Count 9.6 K/mm3 (4.5-10.0)
[2021-12-27 19:05] LABS: Alanine Aminotransferase 11 U/L (4-35); Albumin Level 4.4 g/dL (3.5-5.1); Alkaline Phosphatase 100 U/L (38-126); Anion Gap 6 mmol/L (8-16); Aspartate Amino Transferase 27 U/L (14-36); Bilirubin,Total < 0.1 mg/dL (0.2-1.3); Blood Urea Nitrogen 14 mg/dL (7-17); Carbon Dioxide 31 mmol/L (22-30); Chloride 103 mmol/L (98-107); Estimated CRCL calculation 80 ml/min; Estimated Glomerular Filt Rate > 60; Glucose 107 mg/dL (65-110); Lipase 41 U/L (23-300); Potassium 3.9 mmol/L (3.4-5.0); Sodium 140 mmol/L (137-145)
[2021-12-27 19:24] LABS: Anisocytosis 3+ (NORMAL); Hypochromasia 1+ (NORMAL); Platelet Estimate Adequate (Adequate)
[2021-12-27 19:25] LABS: Ovalocytes 1+ (NORMAL)
[2021-12-27 20:00] VITALS: BP 151/77; PULSE 66; RESP 16; O2SAT 100
--- NOTE | 2021-12-27 20:24 | ED.ABDPAIN ---
HPI - Abdominal Pain General Chief Complaint: Abdominal Pain Stated Complaint: abd pain Time Seen by Provider: 12/27/21 18:27 History of Present Illness HPI narrative: Patient is a 61-year-old female who presents ER with abdominal pain. Worsening since last night. Associated with belching and nausea but no vomiting. She is not passing gas or having bowel movement. Has history of bowel obstruction in past and this feels similar. She has been cared for by Dr. Uribe. Denies fevers or chills or sweats. Reports she started a new iron supplement due to anemia which may have caused her to feel obstructed. Related Data Home Medications Medication Instructions Recorded Confirmed albuterol sulfate 90 mcg/actuation 2 inhalation INHALATION Q4H PRN 09/21/19 11/14/21 aerosol inhaler fluticasone 500 mcg-salmeterol 50 1 inhalation INHALATION Q12H 09/21/19 11/14/21 mcg/dose blistr powdr for inhalation modafinil 200 mg tablet 200 mg PO QAM 09/21/19 11/14/21 peg 400-propylene glycol 0.4 %-0.3 1 drop EACH EYE DAILY 09/21/19 11/14/21 % eye drops prednisone 5 mg tablet 5 mg PO DAILY 08/08/21 11/14/21 Allergies Allergy/AdvReac Type Severity Reaction Status Date / Time latex Allergy Unknown unknown Verified 11/14/21 10:10 Penicillins Allergy Unknown unknown Verified 11/14/21 10:10 Review of Systems Review of Systems: All systems reviewed & are unremarkable except as noted in HPI and below Constitutional: Constitutional: Denies chills, Denies fever(s) and Denies weakness ENT: Denies nasal congestion and Denies sore throat Cardiovascular: Cardiovascular: Denies chest pain, Denies rapid heart rate and Denies radiating jaw, neck or arm pain Respiratory: Respiratory: Denies cough, Denies dyspnea and Denies wheezing Gastrointestinal: Gastrointestinal: Reports abdominal pain, Reports bloating, Denies constipation, Denies diarrhea, Reports nausea and Denies vomiting Neurologic: Denies focal weakness and Denies numbness PMF Past Medical History Medical History (Updated 12/27/21 @ 21:17 by Nael Rivera MD) Chronic anemia (Unknown) Chronic back pain Chronic obstructive pulmonary disease (Unknown) Chronic respiratory failure with hypoxia On 2 liters nasal cannula p.r.n. Depression with anxiety Dyslipidemia Gastroesophageal reflux disease (Unknown) Hypothyroidism Migraine headache Obstructive sleep apnea Peripheral neuropathy Restless leg syndrome, controlled Scoliosis Small bowel obstruction due to adhesions Previous, multiple admissions for such. Vitamin D deficiency Surgical History Surgical History Bladder prolapse Repair of bladder prolapse. History of bilateral cataract extraction History of bowel resection Secondary to bowel obstruction with colostomy and subsequent takedown. History of cholecystectomy History of eye surgery Treatment of amblyopia. History of tonsillectomy and adenoidectomy Rectal prolapse Rectal prolapse repair. Status post small bowel resection (~01/2019) Exploratory laparotomy with resection of 36 centimeters of the small bowel with extensive adhesiolysis and ileal-ileal anastomosis. Family History Family History Father Cirrhosis Mother Emphysema of lung Social History Social History Social History: The patient lives in [place] with her significant other, Luis Fernando. 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 She smoked about a pack of cigarettes per day for > 30 years and quit in 2018. She denies alcohol and illicit substance abuse. She designates her son, Rohit, as her surrogate decision maker and she wishes to be a full code. Years smoked: 30 Smoking status: Current every day smoker Tobacco type: cigarettes Smoking end date: 09/01/17 Alcohol intake: former Substance use: never Gender identit
[2021-12-27 21:00] VITALS: BP 175/80; PULSE 70; RESP 16; O2SAT 100
--- NOTE | 2021-12-27 21:02 | PM.IMHP ---
H&P: HPI History of Present Illness Date/Time: 12/27/21 21:02 Chief Complaint: Abdominal pain. Narrative: This is a 61-year-old female with past medical history significant for colectomy, she is status post reverted colostomy, COPD/emphysema, tobacco dependence. Patient presents today to the emergency room after she started having abdominal pain in the night prior with constipation on and unable to pass any gas she was able to have 1 meal but has felt no shows and cramp pain and worsening abdominal pain. Patient denies any fever, chills, rigors, vomiting. Preliminary workup was significant for CT of abdomen and pelvis with small-bowel obstruction. She has been in her usual state of health prior to this. Patient is been admitted for further evaluation management and treatment. Review of Systems Review of Systems: Abdominal pain, constipation, unable to pass gas, nausea. Constitutional: Constitutional: Denies chills, Denies fatigue, Denies fever(s), Denies malaise, Denies night sweats and Reports poor appetite Eyes: Eyes: Denies change in vision ENT: Denies dysphagia, Denies vertigo, Denies nasal congestion, Denies nasal discharge, Denies nasal obstruction and Denies odynophagia Cardiovascular: Cardiovascular: Denies pedal edema, Denies leg edema, Denies radiating jaw, neck or arm pain, Denies palpitations, Denies dyspnea on exertion and Denies orthopnea Respiratory: Respiratory: Denies cough and Denies dyspnea Gastrointestinal: Gastrointestinal: Reports abdominal pain, Denies melena, Reports bloating, Denies hematochezia, Denies dyspepsia, Denies heartburn, Denies diarrhea, Reports nausea, Denies vomiting and Denies hematemesis Comments: Not passing gas Genitourinary: Genitourinary: Denies dysuria Musculoskeletal: Musculoskeletal: Denies back pain, Denies myalgias, Denies arthralgias and Denies joint swelling Integumentary/Breasts: Skin/Breast: Denies rash Neurologic: Denies focal weakness Psychiatric: Psychiatric: Reports no additional psychiatric complaints and Reports as per HPI Endocrine: Endocrine: Denies cold intolerance, Denies heat intolerance, Denies polyphagia, Denies polydipsia and Denies palpitations Hematologic/Lymphatic: Hematologic/Lymphatic: Reports no additional hematologic/lymphatic complaints and Reports as per HPI Allergic/Immunologic: Allergic/Immunologic: Reports no additional allergic/immunologic complaints and Reports as per HPI [facility] Past Medical History Medical History (Updated 12/28/21 @ 04:05 by Mariam Emmanuel MD) Chronic anemia (Unknown) Chronic back pain Chronic obstructive pulmonary disease (Unknown) Chronic respiratory failure with hypoxia On 2 liters nasal cannula p.r.n. Depression with anxiety Dyslipidemia Gastroesophageal reflux disease (Unknown) Hypothyroidism Migraine headache Obstructive sleep apnea Peripheral neuropathy Restless leg syndrome, controlled Scoliosis Small bowel obstruction due to adhesions Previous, multiple admissions for such. Vitamin D deficiency Surgical History Surgical History Bladder prolapse Repair of bladder prolapse. History of bilateral cataract extraction History of bowel resection Secondary to bowel obstruction with colostomy and subsequent takedown. History of cholecystectomy History of eye surgery Treatment of amblyopia. History of tonsillectomy and adenoidectomy Rectal prolapse Rectal prolapse repair. Status post small bowel resection (~01/2019) Exploratory laparotomy with resection of 36 centimeters of the small bowel with extensive adhesiolysis and ileal-ileal anastomosis. Family History Family History Father Cirrhosis Mother Emphysema of lung Social History Social History Social History: The patient lives in [place] with her significant other, Gene. She is
[2021-12-27 21:52] VITALS: BP 183/89; PULSE 70; RESP 16; O2SAT 100
[2021-12-27 22:10] VITALS: BP 151/93; PULSE 79; RESP 18; TEMP 36; O2SAT 94; BMI 31.6
[2021-12-27] MEDS: SODIUM CHLORIDE 0.9% IV 1,000 ML 125 ML IV CONT (22:11)
[2021-12-27 22:14] VITALS: BMI 31.6
[2021-12-27 23:10] VITALS: O2SAT 98
[2021-12-28] VITALS (7 sets, daily range): BP systolic 136–157; BP diastolic 58–72; PULSE 58–74; RESP 16–18; TEMP 36.4–37.1; O2SAT 96–98
[2021-12-28] MEDS: ONDANSETRON INJ 4 MG/2 ML VIAL IV PUSH ×4 (02:11→20:37)
[2021-12-28] MEDS: MORPHINE SULFATE (*CRX) 4 MG/ML INJ IV PUSH (02:11)
[2021-12-28] MEDS: SODIUM CHLORIDE 0.9% IV 1,000 ML 125 ML IV CONT ×2 (06:26→13:51)
[2021-12-28] MEDS: ENOXAPARIN 40 MG/0.4 ML SYRINGE SUB-Q (08:07)
[2021-12-28] MEDS: PANTOPRAZOLE SODIUM IV 40 MG VIAL IV PUSH ×2 (08:08→20:31)
--- NOTE | 2021-12-28 09:34 | PM.CNGS ---
Assessment and Plan Assessment and plan (1) Partial small bowel obstruction: Code(s): K56.600 - Partial intestinal obstruction, unspecified as to cause Status: Acute Assessment and Plan: will place NG for decompression, will get SBS later for further eval, cont bowel rest, encourage OOB (2) BMI 31.0-31.9,adult: Code(s): Z68.31 - Body mass index [BMI] 31.0-31.9, adult Status: Acute Assessment and Plan: lifestyle and dietary modifications (3) Chronic respiratory failure with hypoxia: Code(s): J96.11 - Chronic respiratory failure with hypoxia Status: Acute Assessment and Plan: stable, mgmt per primary team History of Present Illness Consult details Consult date: 12/28/21 Reason for consult: abdominal pain Requesting physician: Mariam Emmanuel MD Narrative: The patient is a 61-year-old female with extensive abdominal surgical history, including previous small bowel resection for obstruction in January of 2019, presenting with recurrent small-bowel obstruction. The patient reports that she has been experiencing crampy abdominal pain, intractable nausea and vomiting over the last few days. The patient reports she has not really had any bowel function over this time. The patient reports intermittent episodes that she was somewhat able to manage at home, but this is more persistent and severe. Review of Systems Constitutional: Constitutional: Reports anorexia, Denies chills, Denies fatigue, Reports lethargy, Reports poor appetite, Reports weakness, Denies weight gain and Denies weight loss Eyes: Eyes: Reports no additional eye complaints ENT: Reports system reviewed and no additional complaints, except as documented Cardiovascular: Cardiovascular: Reports no additional cardiovascular complaints Respiratory: Respiratory: Reports no additional respiratory complaints Gastrointestinal: Gastrointestinal: Reports as per HPI, Reports abdominal pain, Reports bloating, Reports change in bowel habits, Reports constipation, Reports nausea and Reports vomiting Genitourinary: Genitourinary: Reports no additional female genitourinary complaints Musculoskeletal: Musculoskeletal: Reports no additional musculoskeletal complaints Integumentary/Breasts: Skin/Breast: Reports system reviewed and no additional complaints, except as docu Neurologic: Reports system reviewed and no additional complaints, except as documented Psychiatric: Psychiatric: Reports no additional psychiatric complaints Endocrine: Endocrine: Reports no additional endocrine complaints Hematologic/Lymphatic: Hematologic/Lymphatic: Reports no additional hematologic/lymphatic complaints Allergic/Immunologic: Allergic/Immunologic: Reports no additional allergic/immunologic complaints [facility] Past Medical History Medical History Chronic anemia (Unknown) Chronic back pain Chronic obstructive pulmonary disease (Unknown) Chronic respiratory failure with hypoxia On 2 liters nasal cannula p.r.n. Depression with anxiety Dyslipidemia Gastroesophageal reflux disease (Unknown) Hypothyroidism Migraine headache Obstructive sleep apnea Peripheral neuropathy Restless leg syndrome, controlled Scoliosis Small bowel obstruction due to adhesions Previous, multiple admissions for such. Vitamin D deficiency Surgical History Surgical History Bladder prolapse Repair of bladder prolapse. History of bilateral cataract extraction History of bowel resection Secondary to bowel obstruction with colostomy and subsequent takedown. History of cholecystectomy History of eye surgery Treatment of amblyopia. History of tonsillectomy and adenoidectomy Rectal prolapse Rectal prolapse repair. Status post small bowel resection (~01/2019) Exploratory laparotomy with resection of 36 centimeters of the small bowel with extensive adhesiolysis an
[2021-12-28] MEDS: HYDROmorphone HCL INJ (*CRX) 1 MG/ML SYR 0.5 MG IV PUSH ×4 (09:46→20:36)
--- NOTE | 2021-12-28 11:41 | PM.IMPN ---
Progress Note: A&P Additional Plan #Acute small bowel obstruction: -continue NPO -continue NG tube. -IV 0.9% saline at 75ml/hr. -monitor intake and output -appreciate surgeons recommendations. #Gastroesophageal reflux disease: -PPI [id number]. #Chronic respiratory failure with hypoxia: -stable, continue to monitor. #Chronic obstructive pulmonary disease: -stable, not actively wheezing -continue to monitor -continue home meds #Chronic back pain: -Tylenol p.r.n. -[place] and Dilaudid prn #Chronic anemia: -continue to monitor Subjective Date/time seen: 12/28/21 11:41 Patient seen lying in bed, she endorsed feeling better since the surgeon inserted an NG tube. We discussed her pain control. LBM was > 2 days and she states she is not passing gas. She endorsed being comfortable and had no new complains. Exam Const: General: cooperative and no acute distress Resp: Effort & Inspection: normal respiratory effort and able to speak in complete sentences Auscultation: clear to auscultation bilaterally Cardio: Rate: regular rate Rhythm: regular rhythm Heart sounds: S1 normal heart sound present and S2 normal heart sound present GI: GI Palp: Yes Firmness to palpation present (GI) and Yes Tenderness to palpation present (GI) Auscultation: absent bowel sounds Extrem: General: normal to inspection Objective Data Vital Signs Vital Signs: Vital Signs - 24 hr 12/27/21 18:11 12/27/21 20:00 12/27/21 21:00 Temperature 97.5 F L Pulse Rate 84 66 70 Respiratory Rate 16 16 16 Blood Pressure 162/104 H 151/77 H 175/80 H Pulse Oximetry 97 100 100 12/27/21 21:52 12/27/21 22:10 12/27/21 23:10 Temperature 96.8 F L Pulse Rate 70 79 Respiratory Rate 16 18 Blood Pressure 183/89 H 151/93 H Pulse Oximetry 100 94 98 12/28/21 05:38 12/28/21 07:43 12/28/21 08:00 Temperature 97.6 F 98.6 F Pulse Rate 72 60 Respiratory Rate 18 18 Blood Pressure 136/61 144/62 H Pulse Oximetry 98 97 96 Intake/Output Intake/Output: Intake & Output 12/25/21 12/26/21 12/27/21 12/28/21 23:59 23:59 23:59 23:59 Intake Total 1000 1000 Output Total 600 Balance 1000 400 Meds/Results Medications: Active Medications Generic Name Dose Route Start Last Admin Trade Name Freq PRN Reason Stop Dose Admin Acetaminophen 650 mg 12/27/21 21:03 Acetaminophen 325 Mg Tablet PO Q4H PRN Mild Pain (1-3) or Fever Hydrocodone Bitart/Acetaminophen 1 tab 12/27/21 21:03 Hydrocodone/Acetaminophen (*Crx) 5-325 Mg Tablet PO Q4H PRN Pain Rated 4-6 Albuterol 2 puff 12/28/21 04:07 Albuterol Sulfate (*Sp) Aerosol 1 Puff INHALATION Q4HRT PRN Shortness Of Breath Or Wheezing Enoxaparin Sodium 40 mg 12/28/21 09:00 12/28/21 08:07 Enoxaparin 40 Mg/0.4 Ml Syringe SUB-Q 40 mg DAILY ARELI Administration Hydromorphone HCl 0.5 mg 12/28/21 04:07 12/28/21 09:46 Hydromorphone Hcl Inj (*Crx) 1 Mg/Ml Syr IV PUSH 0.5 mg Q3H PRN Administration Pain Rated 7-10 Sodium Chloride 1,000 mls @ 125 mls/hr 12/27/21 21:05 12/28/21 06:26 Normal Saline Iv IV CONT 125 mls/hr .Q8H ARELI Administration Ondansetron HCl 4 mg 12/27/21 21:03 12/28/21 08:08 Ondansetron Inj 4 Mg/2 Ml Vial IV PUSH 4 mg Q4H PRN Administration Nausea Pantoprazole Sodium 40 mg 12/28/21 09:00 12/28/21 08:08 Pantoprazole Sodium Iv 40 Mg Vial IV PUSH 40 mg Q12HR ARELI Administration Fluticasone/Salmeterol 2 puff 12/28/21 08:00 Fluticasone/Salmeterol 230-21 Mcg Inhaler 1 Puff INHALATION Q12HRT ARELI Radiology Results: ITS Impressions Abdomen/Pelvis CT 12/27/21 19:33 IMPRESSION: 1. Chronically dilated small bowel loops with a transition point a small bowel anastomosis in the left pelvis, consistent with partial obstruction. Abdomen X-Ray 12/28/21 10:12 IMPRESSION: 1. Nasogastric tube in the stomach. 2. Mildly dilated small bowel loops, likely partial small bowel obstruc
[2021-12-28] MEDS: FLUTICASONE/SALMETEROL 230-21 MCG INHALER 1 PUFF 2 PUFF INHALATION (20:05)
[2021-12-29] VITALS (7 sets, daily range): BP systolic 136–172; BP diastolic 79–91; PULSE 65–88; RESP 16–22; TEMP 37.1–37.7; O2SAT 93–99
[2021-12-29] MEDS: HYDROmorphone HCL INJ (*CRX) 1 MG/ML SYR 0.5 MG IV PUSH ×4 (01:26→21:18)
[2021-12-29] MEDS: ONDANSETRON INJ 4 MG/2 ML VIAL IV PUSH (01:26)
[2021-12-29] MEDS: SODIUM CHLORIDE 0.9% IV 1,000 ML 75 ML IV CONT (01:32)
--- NOTE | 2021-12-29 03:44 | PC.NURSE ---
2327 Pt called stating that she think she coughed out the tube in her nose, NG tube secured by charge nurse Glneny and order put in for abdominal xray for tube placement verification.
--- NOTE | 2021-12-29 03:53 | PC.NURSE ---
0110 Nasogastric tube advanced as recommended per xray results
--- NOTE | 2021-12-29 03:57 | PC.NURSE ---
0345 Nasogastric tube is in adequate position per xray results . Nasogastric tube connected to low intermittent suction as ordered, draining greenish content.
[2021-12-29 05:52] LABS: Basophils Percent Auto 0.3 % (0.2-1.2); Eosinophils Percent Auto 0.5 % (0-4.4); Hematocrit 33.1 % (37.0-47.0); Hemoglobin 10.1 g/dL (12.0-15.0); Immature Granulocyte Absolute 0.03 K/mm3 (0.00-0.031); Immature Granulocyte Percent A 0.4 % (0-0.5); Lymphocytes Absolute Auto 1.83 K/mm3 (0.9-3.2); Lymphocytes Percent Auto 23.6 % (18.3-44.2); Mean Corpuscular HGB Conc 30.5 g/dl (32-36); Mean Corpuscular Hemoglobin 24.6 pg (26-34); Mean Corpuscular Volume 80.7 fl (80-100); Monocytes Absolute Auto 0.5 K/mm3 (0.1-0.6); Monocytes Percent Auto 5.8 % (2.6-8.5); Neutrophils Absolute Auto 5.4 K/mm3 (1.3-6.7); Neutrophils Percent Auto 69.4 % (45.5-73.1); Platelet Count Result 262 k/mm3 (150-375); White Blood Count 7.8 K/mm3 (4.5-10.0)
[2021-12-29 06:14] LABS: Anion Gap 4 mmol/L (8-16); Blood Urea Nitrogen 10 mg/dL (7-17); Calcium 7.9 mg/dL (8.4-10.2); Carbon Dioxide 27 mmol/L (22-30); Chloride 107 mmol/L (98-107); Estimated CRCL calculation 93 ml/min; Estimated Glomerular Filt Rate > 60; Glucose 88 mg/dL (65-110); Potassium 3.3 mmol/L (3.4-5.0); Sodium 138 mmol/L (137-145)
[2021-12-29 06:42] LABS: Anisocytosis 1+ (NORMAL); Platelet Estimate Adequate (Adequate); Poikilocytosis 1+ (NORMAL)
--- NOTE | 2021-12-29 08:04 | PM.PNGS ---
Progress Note: A&P Assessment and Plan (1) Partial small bowel obstruction: Code(s): K56.600 - Partial intestinal obstruction, unspecified as to cause Status: Acute Assessment and Plan: improved s/p decompression, will get SBS for further evaluation, cont bowel rest for now, encourage OOB Subjective Subjective Date/Time Seen: 12/29/21 08:04 feels much better this am, +flatus, no further nausea, pain Review of Systems Review of Systems: All systems reviewed & are unremarkable except as noted in HPI and below Exam Const: General: cooperative, comfortable and no acute distress Resp: Effort & Inspection: normal respiratory effort Auscultation: diminished lung sounds Cardio: Rate: regular rate Rhythm: regular rhythm GI: Inspection: normal to inspection and distended GI Palp: Yes Soft to palpation, No Tenderness to palpation present (GI), No Guarding due to palpation present (GI) and No Rigid due to palpation Objective Data Vital Signs Vital Signs: Vital Signs - 24 hr 12/28/21 14:00 12/28/21 20:00 12/28/21 20:06 Temperature 36.8 C Pulse Rate 74 58 L Respiratory Rate 18 Blood Pressure 157/72 H Pulse Oximetry 97 97 97 12/28/21 22:00 12/29/21 06:00 Temperature 37.1 C 37.1 C Pulse Rate 72 69 Respiratory Rate 16 16 Blood Pressure 138/58 L 147/91 H Pulse Oximetry 96 93 Intake/Output Intake/Output: Intake & Output 12/26/21 12/27/21 12/28/21 12/29/21 23:59 23:59 23:59 23:59 Intake Total 1000 2000 1000 Output Total 1700 1050 Balance 1000 300 -50 Meds/Results Medications: Active Medications Generic Name Dose Route Start Last Admin Trade Name Freq PRN Reason Stop Dose Admin Acetaminophen 650 mg 12/27/21 21:03 Acetaminophen 325 Mg Tablet PO Q4H PRN Mild Pain (1-3) or Fever Hydrocodone Bitart/Acetaminophen 1 tab 12/27/21 21:03 Hydrocodone/Acetaminophen (*Crx) 5-325 Mg Tablet PO Q4H PRN Pain Rated 4-6 Albuterol 2 puff 12/28/21 04:07 Albuterol Sulfate (*Sp) Aerosol 1 Puff INHALATION Q4HRT PRN Shortness Of Breath Or Wheezing Enoxaparin Sodium 40 mg 12/28/21 09:00 12/28/21 08:07 Enoxaparin 40 Mg/0.4 Ml Syringe SUB-Q 40 mg DAILY ARELI Administration Hydromorphone HCl 0.5 mg 12/28/21 04:07 12/29/21 01:26 Hydromorphone Hcl Inj (*Crx) 1 Mg/Ml Syr IV PUSH 0.5 mg Q3H PRN Administration Pain Rated 7-10 Sodium Chloride 1,000 mls @ 75 mls/hr 12/27/21 21:05 12/29/21 01:32 Normal Saline Iv IV CONT 75 mls/hr .[id number] ARELI Administration Ondansetron HCl 4 mg 12/27/21 21:03 12/29/21 01:26 Ondansetron Inj 4 Mg/2 Ml Vial IV PUSH 4 mg Q4H PRN Administration Nausea Pantoprazole Sodium 40 mg 12/28/21 09:00 12/28/21 20:31 Pantoprazole Sodium Iv 40 Mg Vial IV PUSH 40 mg Q12HR ARELI Administration Fluticasone/Salmeterol 2 puff 12/28/21 08:00 12/28/21 20:05 Fluticasone/Salmeterol 230-21 Mcg Inhaler 1 Puff INHALATION 2 puff Q12HRT ARELI Administration Radiology Results: ITS Impressions Abdomen/Pelvis CT 12/27/21 19:33 IMPRESSION: 1. Chronically dilated small bowel loops with a transition point a small bowel anastomosis in the left pelvis, consistent with partial obstruction. Abdomen X-Ray 12/29/21 07:53 IMPRESSION: NG tube in satisfactory position Labs Labs: Laboratory Results - last 24 hr 12/29/21 12/29/21 05:19 05:19 WBC 7.8 RBC 4.10 L Hgb 10.1 L Hct 33.1 L MCV 80.7 MCH 24.6 L MCHC 30.5 L RDW TNP Plt Count 262 MPV 10.0 Immature Gran % (Auto) 0.4 Neut % (Auto) 69.4 Lymph % (Auto) 23.6 [place] % (Auto) 5.8 Eos % (Auto) 0.5 Baso % (Auto) 0.3 Lymph # (Auto) 1.83 [place] # (Auto) 0.5 Eos # (Auto) 0.0 Baso # (Auto) 0.0 Abs Immat Gran (auto) 0.03 Absolute Neuts (auto) 5.4 Absolute Nucleated RBC 0.0 Nucleated RBC % 0.0 Platelet Estimate Adequate Poikilocytosis 1+ Anisocytosis 1+ S
--- NOTE | 2021-12-29 08:31 | PCRCNOTE ---
Pt not available for 08:00 Advair inhaler administration. Out of room for morning for procedure.
--- NOTE | 2021-12-29 09:03 | PM.IMPN ---
Progress Note: A&P Additional Plan #Acute small bowel obstruction: improving -continue NPO -continue NG tube to decompress. -continue IV 0.9% saline at 50ml/hr. -had a bowel movement this morning. -sluggish/hypoactive but present bowel sound son exam today. -monitor intake and output -appreciate surgeons recommendations. #Acute hypokalemia: -K of 3.3 -replaced with IV KCl 40meq X1 -incoming hospitalist to follow up BMP tomorrow. #Gastroesophageal reflux disease: -PPI [id number]. #Chronic respiratory failure with hypoxia: -stable, continue to monitor. #Chronic obstructive pulmonary disease: -stable, not actively wheezing -continue to monitor -continue home meds #Chronic back pain: -Tylenol p.r.n. -[place] and Dilaudid prn #Chronic anemia: -continue to monitor Time Spent With Patient Time with patient: 15 - 25 minutes Subjective Date/time seen: 12/29/21 09:03 Patient seen ambulating in her room. She had a bowel movement this morning after contrast was given. Exam Const: General: cooperative and no acute distress Resp: Effort & Inspection: normal respiratory effort and able to speak in complete sentences Auscultation: clear to auscultation bilaterally Cardio: Rate: regular rate Rhythm: regular rhythm Heart sounds: S1 normal heart sound present and S2 normal heart sound present GI: Inspection: normal to inspection GI Palp: Yes abdominal tenderness and Yes Soft to palpation Auscultation: Hypoactive bowel sounds present Extrem: General: normal to inspection Objective Data Vital Signs Vital Signs: Vital Signs - 24 hr 12/28/21 14:00 12/28/21 20:00 12/28/21 20:06 Temperature 98.2 F Pulse Rate 74 58 L Respiratory Rate 18 Blood Pressure 157/72 H Pulse Oximetry 97 97 97 12/28/21 22:00 12/29/21 06:00 Temperature 98.7 F 98.7 F Pulse Rate 72 69 Respiratory Rate 16 16 Blood Pressure 138/58 L 147/91 H Pulse Oximetry 96 93 Intake/Output Intake/Output: Intake & Output 12/26/21 12/27/21 12/28/21 12/29/21 23:59 23:59 23:59 23:59 Intake Total 1000 2000 1000 Output Total 1700 1050 Balance 1000 300 -50 Meds/Results Medications: Active Medications Generic Name Dose Route Start Last Admin Trade Name Freq PRN Reason Stop Dose Admin Acetaminophen 650 mg 12/27/21 21:03 Acetaminophen 325 Mg Tablet PO Q4H PRN Mild Pain (1-3) or Fever Hydrocodone Bitart/Acetaminophen 1 tab 12/27/21 21:03 Hydrocodone/Acetaminophen (*Crx) 5-325 Mg Tablet PO Q4H PRN Pain Rated 4-6 Albuterol 2 puff 12/28/21 04:07 Albuterol Sulfate (*Sp) Aerosol 1 Puff INHALATION Q4HRT PRN Shortness Of Breath Or Wheezing Enoxaparin Sodium 40 mg 12/28/21 09:00 12/28/21 08:07 Enoxaparin 40 Mg/0.4 Ml Syringe SUB-Q 40 mg DAILY ARELI Administration Hydromorphone HCl 0.5 mg 12/28/21 04:07 12/29/21 01:26 Hydromorphone Hcl Inj (*Crx) 1 Mg/Ml Syr IV PUSH 0.5 mg Q3H PRN Administration Pain Rated 7-10 Sodium Chloride 1,000 mls @ 75 mls/hr 12/27/21 21:05 12/29/21 08:25 Normal Saline Iv IV CONT 0 mls/hr .[id number] ARELI Infusion Potassium Chloride 40 meq/ 520 mls @ 130 mls/hr 12/29/21 09:02 Sodium Chloride IVPB 12/29/21 13:01 ONCE ONE Ondansetron HCl 4 mg 12/27/21 21:03 12/29/21 01:26 Ondansetron Inj 4 Mg/2 Ml Vial IV PUSH 4 mg Q4H PRN Administration Nausea Pantoprazole Sodium 40 mg 12/28/21 09:00 12/28/21 20:31 Pantoprazole Sodium Iv 40 Mg Vial IV PUSH 40 mg Q12HR ARELI Administration Fluticasone/Salmeterol 2 puff 12/28/21 08:00 12/29/21 08:30 Fluticasone/Salmeterol 230-21 Mcg Inhaler 1 Puff INHALATION Not Given Q12HRT ARELI Radiology Results: ITS Impressions Abdomen/Pelvis CT 12/27/21 19:33 IMPRESSION: 1. Chronically dilated small bowel loops with a transition point a small bowel anastomosis in the left pelvis, consistent with partial obstruction. Abdomen X-Ray 12/29/21 07:53 IMPRESSION:
[2021-12-29] MEDS: ENOXAPARIN 40 MG/0.4 ML SYRINGE SUB-Q (12:03)
[2021-12-29] MEDS: PANTOPRAZOLE SODIUM IV 40 MG VIAL IV PUSH ×2 (12:03→21:17)
[2021-12-29] MEDS: POTASSIUM CHLORIDE INJ 40 MEQ in SODIUM CHLORIDE 0.9% IV 500 ML 130 MEQ IVPB (12:07)
[2021-12-29] MEDS: FLUTICASONE/SALMETEROL 230-21 MCG INHALER 1 PUFF 2 PUFF INHALATION (19:35)
[2021-12-29] MEDS: ACETAMINOPHEN 325 MG TABLET 650 MG PO (21:17)
[2021-12-30] VITALS (7 sets, daily range): BP systolic 127–160; BP diastolic 56–65; PULSE 70–89; RESP 18–20; TEMP 36.7–37.7; O2SAT 91–96
[2021-12-30] MEDS: HYDROmorphone HCL INJ (*CRX) 1 MG/ML SYR 0.5 MG IV PUSH ×3 (00:43→08:12)
[2021-12-30 06:15] LABS: Basophils Percent Auto 0.3 % (0.2-1.2); Eosinophils Absolute Auto 0.1 K/mm3 (0-0.3); Eosinophils Percent Auto 0.8 % (0-4.4); Hematocrit 34.8 % (37.0-47.0); Hemoglobin 10.4 g/dL (12.0-15.0); Immature Granulocyte Absolute 0.06 K/mm3 (0.00-0.031); Immature Granulocyte Percent A 0.5 % (0-0.5); Lymphocytes Absolute Auto 1.91 K/mm3 (0.9-3.2); Lymphocytes Percent Auto 16.5 % (18.3-44.2); Mean Corpuscular HGB Conc 29.9 g/dl (32-36); Mean Corpuscular Hemoglobin 24.8 pg (26-34); Mean Corpuscular Volume 82.9 fl (80-100); Mean Platelet Volume 10.2 fl (7.4-10.4); Monocytes Absolute Auto 0.9 K/mm3 (0.1-0.6); Monocytes Percent Auto 7.8 % (2.6-8.5); Neutrophils Absolute Auto 8.6 K/mm3 (1.3-6.7); Neutrophils Percent Auto 74.1 % (45.5-73.1); Platelet Count Result 257 k/mm3 (150-375); White Blood Count 11.6 K/mm3 (4.5-10.0)
[2021-12-30 06:32] LABS: Anion Gap 8 mmol/L (8-16); Blood Urea Nitrogen 8 mg/dL (7-17); Calcium 8.2 mg/dL (8.4-10.2); Carbon Dioxide 22 mmol/L (22-30); Chloride 108 mmol/L (98-107); Estimated CRCL calculation 93 ml/min; Estimated Glomerular Filt Rate > 60; Glucose 79 mg/dL (65-110); Magnesium 1.7 mg/dL (1.6-2.3); Potassium 3.3 mmol/L (3.4-5.0); Sodium 138 mmol/L (137-145)
[2021-12-30 06:51] LABS: Anisocytosis 1+ (NORMAL); Ovalocytes 1+ (NORMAL); Platelet Estimate Adequate (Adequate)
[2021-12-30] MEDS: FLUTICASONE/SALMETEROL 230-21 MCG INHALER 1 PUFF 2 PUFF INHALATION ×2 (07:32→20:46)
[2021-12-30] MEDS: PANTOPRAZOLE SODIUM IV 40 MG VIAL IV PUSH ×2 (08:11→20:23)
[2021-12-30] MEDS: ENOXAPARIN 40 MG/0.4 ML SYRINGE SUB-Q (08:11)
[2021-12-30] MEDS: SODIUM CHLORIDE 0.9% IV 1,000 ML 100 ML IV CONT ×3 (08:12→23:36)
[2021-12-30] MEDS: POTASSIUM CHLORIDE INJ 40 MEQ in SODIUM CHLORIDE 0.9% IV 500 ML 130 MEQ IVPB (08:12)
--- NOTE | 2021-12-30 09:12 | PM.IMPN ---
Progress Note: A&P Assessment and Plan (1) Partial small bowel obstruction: Code(s): K56.600 - Partial intestinal obstruction, unspecified as to cause Status: Acute Assessment and Plan: -surgery consulted. -patient improving, active bowel function -NG tube discontinued today -start clear liquid diet -monitor (2) Gastroesophageal reflux disease: Onset Date: Unknown Qualifiers: Esophagitis presence: without esophagitis Qualified Code(s): K21.9 - Gastro-esophageal reflux disease without esophagitis Code(s): K21.9 - Gastro-esophageal reflux disease without esophagitis Status: Acute Assessment and Plan: -continue Protonix 40 mg IV b.i.d. (3) Chronic respiratory failure with hypoxia: Code(s): J96.11 - Chronic respiratory failure with hypoxia Status: Acute Assessment and Plan: -not currently problematic. -continue to monitor oxygen saturations with vital sign assessments. (4) Chronic obstructive pulmonary disease: Onset Date: Unknown Qualifiers: COPD type: unspecified COPD Qualified Code(s): J44.9 - Chronic obstructive pulmonary disease, unspecified Code(s): J44.9 - Chronic obstructive pulmonary disease, unspecified Status: Chronic Assessment and Plan: -not currently in exacerbation -continue respiratory medications and monitor. -supplemental oxygen as needed. (5) Chronic back pain: Qualifiers: Back pain laterality: bilateral Back pain location: low back pain Sciatica presence: without sciatica Qualified Code(s): M54.5 - Low back pain; G89.29 - Other chronic pain Code(s): M54.9 - Dorsalgia, unspecified; G89.29 - Other chronic pain Status: Acute Assessment and Plan: - prn tylenol (6) Chronic anemia: Onset Date: Unknown Code(s): D64.9 - Anemia, unspecified Status: Chronic Assessment and Plan: -not currently problematic. -monitor CBC -H and H today is 10.4 and 34.8 as compared to yesterday's 10.1 and 33.1. (7) Hypokalemia: Code(s): E87.6 - Hypokalemia Status: Acute Assessment and Plan: -potassium is 3.3. -as she is currently NPO KCl 40 mEq IV x1 ordered. -recheck metabolic panel in a.m.. Subjective Date/time seen: 05/01/22 09:12 This patient was examined at the bedside today in interval assessment from being admitted for small-bowel obstruction status post decompression with nasogastric tube. She reports this morning that she feels very tired and she has pressure in the left side of her face after her NG tube had to be replaced. Overnight she ran a temperature of 99.9? as T-max. The patient does endorse that she has been passing gas and has been having bowel movements of contrast. Bowel sounds are hypoactive yesterday and are unchanged today. Repeat metabolic panel today shows a potassium of 3.3 which was also present the day before yesterday. She will receive 40 mEq of IV potassium today x1 to correct and we will monitor in the morning. Patient currently denies any chest pain, dyspnea, urinary complaints. She does report some mild nausea, citing it has gotten better, she has not had any further vomiting she has diarrhea. Review of Systems Review of Systems: A 12 point review of systems was performed and is otherwise negative with exception what is noted in HPI. Specifically this patient does not have any vomiting in the past 24 hours. She does have some nausea, but noted it is improved. She has been passing gas and has stools of contrast. All systems reviewed & are unremarkable except as noted in HPI and below Exam Const: General: no acute distress and uncomfortable (Secondary to nasogastric tube. Otherwise no acute distress.) HENMT: Mouth: Yes dry mucous membranes Eyes: Sclera: sclerae normal Neck: Neck: supple and no JVD Lymphatic: lymphadenopathy not noted Resp: Effort & Inspection: normal respirat
--- NOTE | 2021-12-30 09:50 | PM.PNGS ---
Progress Note: A&P Assessment and Plan (1) Partial small bowel obstruction: Code(s): K56.600 - Partial intestinal obstruction, unspecified as to cause Status: Acute Assessment and Plan: resolved, SBS essentially unremarkable, exam benign, +bowel fxn, will remove NG and start diet Subjective Subjective Date/Time Seen: 12/30/21 09:50 feels much improved, multiple BMs yesterday and overnight, no further nausea, cramping Review of Systems Review of Systems: All systems reviewed & are unremarkable except as noted in HPI and below Exam Const: General: cooperative, comfortable and no acute distress Resp: Auscultation: clear to auscultation bilaterally Cardio: Rate: regular rate Rhythm: regular rhythm GI: Inspection: normal to inspection and non-distended GI Palp: Yes Soft to palpation, No Tenderness to palpation present (GI), No Guarding due to palpation present (GI) and No Rigid due to palpation Objective Data Vital Signs Vital Signs: Vital Signs - 24 hr 12/29/21 13:37 12/29/21 14:00 12/29/21 19:36 Temperature 37.6 C H Pulse Rate 71 65 88 Respiratory Rate 16 18 Blood Pressure 172/79 H Pulse Oximetry 97 99 97 12/29/21 21:17 12/29/21 22:00 12/30/21 06:00 Temperature 37.7 C H 37.7 C H 37.7 C H Pulse Rate 80 71 Respiratory Rate 22 H 20 Blood Pressure 136/82 160/65 H Pulse Oximetry 95 91 12/30/21 07:35 12/30/21 07:36 12/30/21 08:25 Temperature Pulse Rate 79 89 Respiratory Rate 18 18 Blood Pressure Pulse Oximetry 95 96 Intake/Output Intake/Output: Intake & Output 12/27/21 12/28/21 12/29/21 12/30/21 23:59 23:59 23:59 23:59 Intake Total 1000 2000 1520 1000 Output Total 1700 1750 Balance 1000 300 -230 1000 Meds/Results Medications: Active Medications Generic Name Dose Route Start Last Admin Trade Name Freq PRN Reason Stop Dose Admin Acetaminophen 650 mg 12/27/21 21:03 12/29/21 21:17 Acetaminophen 325 Mg Tablet PO 650 mg Q4H PRN Administration Mild Pain (1-3) or Fever Hydrocodone Bitart/Acetaminophen 1 tab 12/27/21 21:03 Hydrocodone/Acetaminophen (*Crx) 5-325 Mg Tablet PO Q4H PRN Pain Rated 4-6 Albuterol 2 puff 12/28/21 04:07 Albuterol Sulfate (*Sp) Aerosol 1 Puff INHALATION Q4HRT PRN Shortness Of Breath Or Wheezing Enoxaparin Sodium 40 mg 12/28/21 09:00 12/30/21 08:11 Enoxaparin 40 Mg/0.4 Ml Syringe SUB-Q 40 mg DAILY ARELI Administration Hydromorphone HCl 0.5 mg 12/28/21 04:07 12/30/21 08:12 Hydromorphone Hcl Inj (*Crx) 1 Mg/Ml Syr IV PUSH 0.5 mg Q3H PRN Administration Pain Rated 7-10 Sodium Chloride 1,000 mls @ 100 mls/hr 12/30/21 07:35 12/30/21 08:12 Normal Saline Iv IV CONT 100 mls/hr .Q10H ARELI Administration Potassium Chloride 40 meq/ 520 mls @ 130 mls/hr 12/30/21 07:34 12/30/21 08:12 Sodium Chloride IVPB 12/30/21 11:33 130 mls/hr ONCE ONE Administration Ondansetron HCl 4 mg 12/27/21 21:03 12/29/21 01:26 Ondansetron Inj 4 Mg/2 Ml Vial IV PUSH 4 mg Q4H PRN Administration Nausea Pantoprazole Sodium 40 mg 12/28/21 09:00 12/30/21 08:11 Pantoprazole Sodium Iv 40 Mg Vial IV PUSH 40 mg Q12HR ARELI Administration Fluticasone/Salmeterol 2 puff 12/28/21 08:00 12/30/21 07:32 Fluticasone/Salmeterol 230-21 Mcg Inhaler 1 Puff INHALATION 2 puff Q12HRT ARELI Administration Radiology Results: ITS Impressions Abdomen/Pelvis CT 12/27/21 19:33 IMPRESSION: 1. Chronically dilated small bowel loops with a transition point a small bowel anastomosis in the left pelvis, consistent with partial obstruction. Abdomen X-Ray 12/29/21 07:53 IMPRESSION: NG tube in satisfactory position Small Bowel X-Ray 12/29/21 11:03 IMPRESSION: Dilated mid to distal small bowel without significant delay in transit of contrast material Labs Labs: Laboratory Results - last 24 hr 12/30/21 12/30/21 05:37 05:37 WB
[2021-12-30] MEDS: HYDROcodone/acetaminophen (*CRX) 5-325 MG TABLET 1 TAB PO ×2 (12:59→18:04)
[2021-12-30] MEDS: ONDANSETRON INJ 4 MG/2 ML VIAL IV PUSH (18:06)
[2021-12-30] MEDS: LORATADINE 5 MG TABLET PO (21:51)
[2021-12-31 06:00] VITALS: BP 138/67; PULSE 75; RESP 16; TEMP 36.4; O2SAT 91
[2021-12-31 06:20] LABS: Basophils Percent Auto 0.3 % (0.2-1.2); Eosinophils Absolute Auto 0.1 K/mm3 (0-0.3); Eosinophils Percent Auto 1.3 % (0-4.4); Hematocrit 32.7 % (37.0-47.0); Immature Granulocyte Absolute 0.04 K/mm3 (0.00-0.031); Immature Granulocyte Percent A 0.6 % (0-0.5); Lymphocytes Absolute Auto 1.75 K/mm3 (0.9-3.2); Mean Corpuscular HGB Conc 30.6 g/dl (32-36); Mean Corpuscular Hemoglobin 24.8 pg (26-34); Mean Corpuscular Volume 80.9 fl (80-100); Mean Platelet Volume 9.9 fl (7.4-10.4); Monocytes Absolute Auto 0.6 K/mm3 (0.1-0.6); Monocytes Percent Auto 8.3 % (2.6-8.5); Neutrophils Absolute Auto 4.5 K/mm3 (1.3-6.7); Neutrophils Percent Auto 64.5 % (45.5-73.1); Platelet Count Result 240 k/mm3 (150-375); Red Blood Count 4.04 M/mm3 (4.2-5.4)
[2021-12-31 06:29] LABS: Alanine Aminotransferase 127 U/L (4-35); Albumin Level 3.5 g/dL (3.5-5.1); Alkaline Phosphatase 145 U/L (38-126); Anion Gap 6 mmol/L (8-16); Aspartate Amino Transferase 56 U/L (14-36); Bilirubin,Total 0.2 mg/dL (0.2-1.3); Blood Urea Nitrogen 2 mg/dL (7-17); Calcium 8.1 mg/dL (8.4-10.2); Carbon Dioxide 28 mmol/L (22-30); Chloride 107 mmol/L (98-107); Estimated CRCL calculation 93 ml/min; Estimated Glomerular Filt Rate > 60; Glucose 106 mg/dL (65-110); Magnesium 1.6 mg/dL (1.6-2.3); Potassium 3.2 mmol/L (3.4-5.0); Sodium 141 mmol/L (137-145)
[2021-12-31 07:01] LABS: Platelet Estimate Adequate (Adequate)
[2021-12-31 07:02] LABS: Anisocytosis 1+ (NORMAL); Ovalocytes 1+ (NORMAL); Target Cells 1+ (NORMAL)
[2021-12-31] MEDS: FLUTICASONE/SALMETEROL 230-21 MCG INHALER 1 PUFF 2 PUFF INHALATION (08:23)
[2021-12-31 08:26] VITALS: O2SAT 95
[2021-12-31 08:45] VITALS: O2SAT 96
[2021-12-31] MEDS: HYDROcodone/acetaminophen (*CRX) 5-325 MG TABLET 1 TAB PO (08:46)
[2021-12-31] MEDS: SODIUM CHLORIDE 0.9% IV 1,000 ML 100 ML IV CONT (08:47)
[2021-12-31] MEDS: PANTOPRAZOLE SODIUM IV 40 MG VIAL IV PUSH (08:47)
[2021-12-31] MEDS: ENOXAPARIN 40 MG/0.4 ML SYRINGE SUB-Q (08:47)
--- NOTE | 2021-12-31 09:33 | PM.PNGS ---
Progress Note: A&P Assessment and Plan (1) Partial small bowel obstruction: Code(s): K56.600 - Partial intestinal obstruction, unspecified as to cause Status: Acute Assessment and Plan: Resolved. SBS showed contrast moving through to the colon in 15 minutes. Abd exam benign. Bowels are moving and tolerated solids for breakfast. Okay to advance diet as tolerated following her abdominal ultrasound. Additional Plan I have discussed the patient's case and plan of care with Dr. Rivero. Subjective Subjective Date/Time Seen: 12/31/21 09:33 Patient reports: no new complaints, feels better, pain is less, tolerating liquids well, flatus and bowel movement Interval history: Patient seen and examined. Chart reviewed. No new complaints. Reports still having some mild cramping abdominal pain after meals, that resolves with time. Feels this pain comes and goes, and is much better than when she presented to the ER. She reports multiple bowel movements yesterday and this morning already. Reports lots of flatus. She tolerated solid foods for breakfast, but has been made NPO for an abdominal ultrasound. Review of Systems Review of Systems: All systems reviewed & are unremarkable except as noted in HPI and below Exam Const: General: no acute distress and awake Orientation/consciousness: patient oriented x3 GI: Inspection: normal to inspection and non-distended GI Palp: Yes Soft to palpation, Yes Tenderness to palpation present (GI) (mild TTP in RLQ, reportedly improved), No Guarding due to palpation present (GI) and No Rebound tenderness present Auscultation: normal bowel sounds Extrem: General: normal to inspection Psych: Mental Status: mental status grossly normal Insight: Good insight present (Psych) Judgement: Good judgement present (Psych) Objective Data Vital Signs Vital Signs: Vital Signs - 24 hr 12/30/21 14:00 12/30/21 20:05 12/30/21 22:00 Temperature 98.1 F 98.3 F Pulse Rate 75 70 Respiratory Rate 18 18 Blood Pressure 127/62 134/56 L Pulse Oximetry 96 95 96 12/31/21 06:00 12/31/21 08:26 Temperature 97.6 F Pulse Rate 75 Respiratory Rate 16 Blood Pressure 138/67 Pulse Oximetry 91 95 Intake/Output Intake/Output: Intake & Output 12/28/21 12/29/21 12/30/21 12/31/21 23:59 23:59 23:59 23:59 Intake Total 1999 1520 5630 1550 Output Total 1700 1750 Balance 300 -230 5630 1550 Meds/Results Medications: Active Medications Generic Name Dose Route Start Last Admin Trade Name Freq PRN Reason Stop Dose Admin Acetaminophen 650 mg 12/27/21 21:03 12/29/21 21:17 Acetaminophen 325 Mg Tablet PO 650 mg Q4H PRN Administration Mild Pain (1-3) or Fever Hydrocodone Bitart/Acetaminophen 1 tab 12/27/21 21:03 12/31/21 08:46 Hydrocodone/Acetaminophen (*Crx) 5-325 Mg Tablet PO 1 tab Q4H PRN Administration Pain Rated 4-6 Albuterol 2 puff 12/28/21 04:07 Albuterol Sulfate (*Sp) Aerosol 1 Puff INHALATION Q4HRT PRN Shortness Of Breath Or Wheezing Enoxaparin Sodium 40 mg 12/28/21 09:00 12/31/21 08:47 Enoxaparin 40 Mg/0.4 Ml Syringe SUB-Q 40 mg DAILY ARELI Administration Hydromorphone HCl 0.5 mg 12/28/21 04:07 12/30/21 08:12 Hydromorphone Hcl Inj (*Crx) 1 Mg/Ml Syr IV PUSH 0.5 mg Q3H PRN Administration Pain Rated 7-10 Sodium Chloride 1,000 mls @ 100 mls/hr 12/30/21 07:35 12/31/21 08:47 Normal Saline Iv IV CONT 100 mls/hr .Q10H ARELI Administration Ondansetron HCl 4 mg 12/27/21 21:03 12/30/21 18:06 Ondansetron Inj 4 Mg/2 Ml Vial IV PUSH 4 mg Q4H PRN Administration Nausea Pantoprazole Sodium 40 mg 12/28/21 09:00 12/31/21 08:47 Pantoprazole Sodium Iv 40 Mg Vial IV PUSH 40 mg Q12HR ARELI Administration Fluticasone/Salmeterol 2 puff 12/28/21 08:00 12/31/21 08:23 Fluticasone/Salmeterol 230-21 Mcg Inhaler 1 Puff INHALATION 2 puff Q12HRT ARELI Administration Radiology Results: ITS
--- NOTE | 2021-12-31 09:35 | PM.PNGS ---
Progress Note: A&P Assessment and Plan (1) Partial small bowel obstruction: Code(s): K56.600 - Partial intestinal obstruction, unspecified as to cause Status: Acute Assessment and Plan: resolved, exam benign and hayden diet, cont to have bowel fxn, no acute surgical issues, will s/o, please call c ?s, issues Subjective Subjective Date/Time Seen: 12/31/21 09:35 feels good this am, hayden diet and cont to have bowel fxn, no N/V, no pain Review of Systems Review of Systems: All systems reviewed & are unremarkable except as noted in HPI and below Exam Const: General: cooperative, comfortable and no acute distress Resp: Auscultation: clear to auscultation bilaterally Cardio: Rate: regular rate Rhythm: regular rhythm GI: Inspection: normal to inspection and non-distended GI Palp: Yes Soft to palpation, No Tenderness to palpation present (GI), No Guarding due to palpation present (GI) and No Rigid due to palpation Objective Data Vital Signs Vital Signs: Vital Signs - 24 hr 12/30/21 14:00 12/30/21 20:05 12/30/21 22:00 Temperature 36.7 C 36.8 C Pulse Rate 75 70 Respiratory Rate 18 18 Blood Pressure 127/62 134/56 L Pulse Oximetry 96 95 96 12/31/21 06:00 12/31/21 08:26 Temperature 36.4 C Pulse Rate 75 Respiratory Rate 16 Blood Pressure 138/67 Pulse Oximetry 91 95 Intake/Output Intake/Output: Intake & Output 12/28/21 12/29/21 12/30/21 12/31/21 23:59 23:59 23:59 23:59 Intake Total 1999 1520 5630 1550 Output Total 1700 1750 Balance 300 -230 5630 1550 Meds/Results Medications: Active Medications Generic Name Dose Route Start Last Admin Trade Name Freq PRN Reason Stop Dose Admin Acetaminophen 650 mg 12/27/21 21:03 12/29/21 21:17 Acetaminophen 325 Mg Tablet PO 650 mg Q4H PRN Administration Mild Pain (1-3) or Fever Hydrocodone Bitart/Acetaminophen 1 tab 12/27/21 21:03 12/31/21 08:46 Hydrocodone/Acetaminophen (*Crx) 5-325 Mg Tablet PO 1 tab Q4H PRN Administration Pain Rated 4-6 Albuterol 2 puff 12/28/21 04:07 Albuterol Sulfate (*Sp) Aerosol 1 Puff INHALATION Q4HRT PRN Shortness Of Breath Or Wheezing Enoxaparin Sodium 40 mg 12/28/21 09:00 12/31/21 08:47 Enoxaparin 40 Mg/0.4 Ml Syringe SUB-Q 40 mg DAILY ARELI Administration Hydromorphone HCl 0.5 mg 12/28/21 04:07 12/30/21 08:12 Hydromorphone Hcl Inj (*Crx) 1 Mg/Ml Syr IV PUSH 0.5 mg Q3H PRN Administration Pain Rated 7-10 Sodium Chloride 1,000 mls @ 100 mls/hr 12/30/21 07:35 12/31/21 08:47 Normal Saline Iv IV CONT 100 mls/hr .Q10H ARELI Administration Ondansetron HCl 4 mg 12/27/21 21:03 12/30/21 18:06 Ondansetron Inj 4 Mg/2 Ml Vial IV PUSH 4 mg Q4H PRN Administration Nausea Pantoprazole Sodium 40 mg 12/28/21 09:00 12/31/21 08:47 Pantoprazole Sodium Iv 40 Mg Vial IV PUSH 40 mg Q12HR ARELI Administration Fluticasone/Salmeterol 2 puff 12/28/21 08:00 12/31/21 08:23 Fluticasone/Salmeterol 230-21 Mcg Inhaler 1 Puff INHALATION 2 puff Q12HRT ARELI Administration Radiology Results: ITS Impressions Abdomen/Pelvis CT 12/27/21 19:33 IMPRESSION: 1. Chronically dilated small bowel loops with a transition point a small bowel anastomosis in the left pelvis, consistent with partial obstruction. Abdomen X-Ray 12/29/21 07:53 IMPRESSION: NG tube in satisfactory position Small Bowel X-Ray 12/29/21 11:03 IMPRESSION: Dilated mid to distal small bowel without significant delay in transit of contrast material Labs Labs: Laboratory Results - last 24 hr 12/31/21 12/31/21 05:47 05:47 WBC 7.0 RBC 4.04 L Hgb 10.0 L Hct 32.7 L MCV 80.9 MCH 24.8 L MCHC 30.6 L RDW TNP Plt Count 240 MPV 9.9 Immature Gran % (Auto) 0.6 H Neut % (Auto) 64.5 Lymph % (Auto) 25.0 [place] % (Auto) 8.3 Eos % (Auto) 1.3 Baso % (Auto) 0.3 Lymph # (Auto) 1.75 [place] # (Auto) 0.6 E
--- NOTE | 2021-12-31 11:11 | PC.NURSE ---
pt's , Kathie, called wanting an update. When pt's condition was explained to Kathie (particularly that he is not NPO), she began trying to blame various staff members for his condition and current state of health including but not limited to the CNAs and seafood packer by making comments about they should not have cleaned him up, it was their fault because the should have cleaned him up, I'm not a bed loading machine adjuster [seafood packer] should have sat him up and fed him, etc. I attempted to remind her that I was with pt yesterday, that I sat him up, and witnessed her feeding him despite having been told that he needs to be sitting up. Additionally, I explained that when an incontinent person has a bowel movement, we do not leave them sitting in it and cleaning up an incontinent person does not impair his ability to swallow or cause him to begin vomiting. Kathie continued to argue concluding with I will come up there and fix him.
[2021-12-31 13:56] LABS: Hepatitis B Surface Antigen Negative (Negative)
[2021-12-31 14:00] VITALS: BP 156/72; PULSE 69; RESP 18; TEMP 35.9; O2SAT 92
[2021-12-31 14:02] LABS: HAV RESULT Negative (Negative); Hepatitis B Core IgM Result Negative (Negative)
[2021-12-31 14:14] LABS: Hepatitis C Virus Antibody Negative (Negative)
--- NOTE | 2021-12-31 15:00 | PM.DS ---
DS: Admitting Diagnosis Discharge Date 12/31/2021 Admitting Diagnosis Partial Small Bowel Obstruction GERD Chronic Respiratory Failure with Hypoxia COPD Chronic Back Pain Anemia DS: Discharge Diagnosis Discharge Diagnosis (1) Partial small bowel obstruction: Code(s): K56.600 - Partial intestinal obstruction, unspecified as to cause Status: Acute Assessment and Plan: -surgery consulted. -patient improving, active bowel function -NG tube discontinued today -start clear liquid diet -monitor - 12/31/21: Date of discharge: Surgery has signed off as pt. is now asymptomatic for them, having normal bowel sounds and also without nausea. (2) Gastroesophageal reflux disease: Onset Date: Unknown Qualifiers: Esophagitis presence: without esophagitis Qualified Code(s): K21.9 - Gastro-esophageal reflux disease without esophagitis Code(s): K21.9 - Gastro-esophageal reflux disease without esophagitis Status: Acute Assessment and Plan: -continue Protonix 40 mg IV b.i.d. - 12/31/21: Date of discharge: Continue Protonix 40 mg po daily (3) Chronic respiratory failure with hypoxia: Code(s): J96.11 - Chronic respiratory failure with hypoxia Status: Acute Assessment and Plan: -not currently problematic. -continue to monitor oxygen saturations with vital sign assessments. - 12/31/21: Date of discharge: Pt. with chronic supplemental oxygen that she wears at home and stable respiratory system today. (4) Chronic obstructive pulmonary disease: Onset Date: Unknown Qualifiers: COPD type: unspecified COPD Qualified Code(s): J44.9 - Chronic obstructive pulmonary disease, unspecified Code(s): J44.9 - Chronic obstructive pulmonary disease, unspecified Status: Chronic Assessment and Plan: -not currently in exacerbation -continue respiratory medications and monitor. -supplemental oxygen as needed. - 12/31/21: Date of discharge: Continue current Respiratory therapy. (5) Chronic back pain: Qualifiers: Back pain laterality: bilateral Back pain location: low back pain Sciatica presence: without sciatica Qualified Code(s): M54.5 - Low back pain; G89.29 - Other chronic pain Code(s): M54.9 - Dorsalgia, unspecified; G89.29 - Other chronic pain Status: Acute Assessment and Plan: - prn tylenol - 12/31/21: Date of discharge: Continue current treatments. (6) Chronic anemia: Onset Date: Unknown Code(s): D64.9 - Anemia, unspecified Status: Chronic Assessment and Plan: -not currently problematic. -monitor CBC -H and H today is 10.4 and 34.8 as compared to yesterday's 10.1 and 33.1. - 12/31/21: Date of discharge: .7, stable and no overt bleeding noted. (7) Hypokalemia: Code(s): E87.6 - Hypokalemia Status: Acute Assessment and Plan: -potassium is 3.3. -as she is currently NPO KCl 40 mEq IV x1 ordered. -recheck metabolic panel in a.m.. - 12/31/21: Date of discharge: Potassium is 3.2 today and she will be given another dose prior to discharge today. She will need CMP checked in 3 days. (8) Transaminitis: Code(s): R74.01 - Elevation of levels of liver transaminase levels Status: Acute Assessment and Plan: - AST today is 56, ALT today is 127, and Alk Phos is 145. Bilirubin is normal. - GGT is pending. - Hepatitis panel is negative. - US of RUQ is ordered and pt. will follow up with PCP for results as she is improving overall. DS: Summary Hospital Course Reason for hospitalization: Abdominal pain, N/V Hospital Course: This 61 year old female patient with past medical history significant for colectomy, she is status post reverted colostomy, COPD/emphysema, and tobacco dependence was admitted to the hospital on 12/27/21 after having increased abdominal pain after developing constipation and being unable to pass any gas. No fevers, N/V. CT of abdomen and
[2021-12-31] MEDS: POTASSIUM CHLORIDE 20 MEQ TABLET 60 MEQ PO (16:21)
[2022-01-02 17:16] LABS: GGT 116 U/L (3-65)
== END 2021-12-31 17:00 | disposition home or self-care (01) | DRG 389 ==
LOC: ANHED 21:17 → ANH3MEDSUR 21:40
PROVIDERS: Internal Medicine; Admitting Provider Internal Medicine; Emergency Provider Emergency Medicine; PCP Emergency Medicine; Visit Provider Nurse Practitioner Adult Health
DX: K56.600 Partial intestinal obstruction, unspecified as to cause (principal); J96.11 Chronic respiratory failure with hypoxia; Z99.81 Dependence on supplemental oxygen; J43.9 Emphysema, unspecified; F17.210 Nicotine dependence, cigarettes, uncomplicated; E87.6 Hypokalemia; R74.01 Elevation of levels of liver transaminase levels; K21.9 Gastro-esophageal reflux disease without esophagitis; M54.50 Low back pain, unspecified; G89.29 Other chronic pain; D64.9 Anemia, unspecified; E03.9 Hypothyroidism, unspecified; G47.33 Obstructive sleep apnea (adult) (pediatric); E78.5 Hyperlipidemia, unspecified; Z79.899 Other long term (current) drug therapy; Z88.0 Allergy status to penicillin; Z90.49 Acquired absence of other specified parts of digestive tract; Z91.040 Latex allergy status; Z98.42 Cataract extraction status, left eye; Z98.41 Cataract extraction status, right eye
CPT/HCPCS: 36415; 74018; 74177; 74250; 76705; 80048; 80053; 80074; 82977; 83690; 83735; 85025; 94640; 96361; 96372; 96374; 96375; 96376; 99285; A9270; C9113; G0378; J1170; J1650; J2270; J2405; J3480; J7030; J7040; Q9967

== ENCOUNTER 2022-01-03 09:42 | Outpatient (CLI) | payer MEDICARE, MEDICAID, SELFPAY ==
[2022-01-03 10:21] LABS: Alanine Aminotransferase 63 U/L (4-35); Albumin Level 4.3 g/dL (3.5-5.1); Alkaline Phosphatase 135 U/L (38-126); Anion Gap 7 mmol/L (8-16); Aspartate Amino Transferase 36 U/L (14-36); Bilirubin,Total 0.2 mg/dL (0.2-1.3); Blood Urea Nitrogen 10 mg/dL (7-17); Calcium 8.8 mg/dL (8.4-10.2); Carbon Dioxide 31 mmol/L (22-30); Chloride 102 mmol/L (98-107); Estimated Glomerular Filt Rate > 60; Glucose 110 mg/dL (65-110); Potassium 3.5 mmol/L (3.4-5.0); Sodium 140 mmol/L (137-145)
== END 2022-01-03 09:43 | disposition home or self-care (01) ==
PROVIDERS: PCP Emergency Medicine; Visit Provider Nurse Practitioner Adult Health
DX: R74.01 Elevation of levels of liver transaminase levels (principal); E87.6 Hypokalemia
CPT/HCPCS: 36415; 80053

== ENCOUNTER 2022-01-04 13:18 | Outpatient (CLI) | payer MEDICARE, MEDICAID, SELFPAY ==
[2022-01-04 16:21] LABS: Iron 32 ug/dL (37-170)
[2022-01-04 16:41] LABS: Percent Iron Saturation 7 % (20-50)
== END 2022-01-04 13:19 | disposition home or self-care (01) ==
PROVIDERS: PCP Emergency Medicine; Visit Provider Internal Medicine Hematology & Oncology
DX: D64.9 Anemia, unspecified (principal)
CPT/HCPCS: 36415; 82607; 82728; 83540; 83550

== ENCOUNTER 2022-01-11 10:47 | Outpatient (CLI) | payer MEDICARE, MEDICAID, SELFPAY ==
[2022-01-11 11:48] LABS: Alanine Aminotransferase 17 U/L (6-35); Albumin Level 4.3 g/dL (3.5-5.1); Alkaline Phosphatase 108 U/L (38-126); Anion Gap 4 mmol/L (8-16); Aspartate Amino Transferase 26 U/L (14-36); Bilirubin,Total 0.1 mg/dL (0.2-1.3); Blood Urea Nitrogen 15 mg/dL (7-17); Calcium 8.8 mg/dL (8.4-10.2); Carbon Dioxide 31 mmol/L (22-30); Chloride 104 mmol/L (98-107); Estimated Glomerular Filt Rate > 60; Glucose 100 mg/dL (65-110); Potassium 4.4 mmol/L (3.4-5.0); Sodium 139 mmol/L (137-145)
== END 2022-01-11 10:48 | disposition home or self-care (01) ==
LOC: ANHLAB 10:50
PROVIDERS: PCP Emergency Medicine; Visit Provider Emergency Medicine
DX: Z13.6 Encounter for screening for cardiovascular disorders (principal)
CPT/HCPCS: 36415; 80053

== ENCOUNTER 2022-04-03 06:16 | Inpatient (IN) | payer MEDICARE, MEDICAID, SELFPAY ==
--- NOTE | ~2022-04-03 | CT_ITS ---
EXAMINATION: CT abdomen pelvis w con DATE: 04/03/2022 07:54 INDICATION: Abdominal pain. TECHNIQUE: Computed tomography (CT) of the abdomen and pelvis was performed with 100 mL Omnipaque 350 intravenous contrast. Automated exposure control and iterative reconstruction technique were employe d. The dose-length product was 555.56 mGy-cm. COMPARISON: CT abdomen and pelvis 12/27/21 FINDINGS: The visualized portions of the lung bases demonstrate mild atelectasis, emphysema and mild chronic lung disease. No pleural effusion. The heart size is normal. No pericardial effusion. Calcifi ed right hilar lymph nodes are consistent with old granulomatous disease. There are cysts in the live r measuring up to 11 mm. There are changes of cholecystectomy. The spleen, pancreas, and adrenal glan ds are normal. There are cysts in the kidneys measuring up to 3.1 cm on the right. There is an anasto mosis in the rectum. The appendix is normal. The colon is normal in caliber. There are multiple dilat ed loops of small bowel with transition point at the anastomosis in distal ileum. There is edema arou nd small bowel loops in this area. There are no pathologically enlarged lymph nodes. There is no free intraperitoneal fluid. There is an old healed right rib fracture. There is mild lumbar spondylosis. IMPRESSION: 1. Small bowel obstruction with transition point at the anastomosis in distal ileum. Reviewed, dictated and finalized at location A. IMPRESSION: 1. Small bowel obstruction with transition point at the anastomosis in distal i leum.
--- NOTE | ~2022-04-03 | XR_ITS ---
EXAM: XR abdomen NG/feed tube rechec DATE: 04/06/2022 21:17 HISTORY: recheck placement NG tube . COMPARISON: None available. FINDINGS: Subsegmental opacity in the left lung base, with likely small effusion. Cholecystectomy cl ips. NG tube, tip and side port project over the stomach. Normal bowel gas pattern. IMPRESSION: NG tube, in good position. Reviewed, dictated and finalized at location K. IMPRESSION: NG tube, in good position.
--- NOTE | ~2022-04-03 | XR_ITS ---
EXAMINATION: XR abdomen NG/feed tube rechec DATE: 04/05/2022 07:52 INDICATION: Nasogastric tube placement. TECHNIQUE: A supine view of the abdomen was obtained. COMPARISON: Abdomen radiograph at 5:40 AM FINDINGS: There are dilated loops of small bowel. The colon is normal in caliber. Surgical clips in t he right upper quadrant are likely from cholecystectomy. The nasogastric tube tip is in the stomach. There are old healed bilateral rib fractures. IMPRESSION: 1. Nasogastric tube tip in the stomach. 2. Persistently dilated small bowel, consistent with small bowel obstruction. Reviewed, dictated and finalized at location A.
--- NOTE | ~2022-04-03 | XR_ITS ---
EXAMINATION: XR sm bowel follow through WS DATE: 04/08/2022 09:49 INDICATION: Small bowel obstruction. TECHNIQUE: Oral contrast was injected into the nasogastric tube. Fluoroscopy of the small bowel was n ot performed. Fluoroscopy exposure time was 0 minutes. The total number of images was 4. COMPARISON: CT abdomen and pelvis 04/03/2022 FINDINGS: The nasogastric tube tip is in the stomach. Surgical clips in the right upper quadrant are likely fro m cholecystectomy. There is dilated small bowel in the lower abdomen. Transit time from the stomach t o proximal colon was approximately 30 minutes. There is mild atelectasis in right midlung zone. There are old healed bilateral rib fractures. IMPRESSION: 1. Dilated distal small bowel with prompt passage of contrast to the colon, consistent with adynamic ileus. Reviewed, dictated and finalized at location A. IMPRESSION: 1. Dilated distal small bowel with prompt passage of contrast to the colon, con sistent with adynamic ileus.
--- NOTE | ~2022-04-03 | XR_ITS ---
XR abdomen/kub 1V DATE: 04/07/2022 05:52 INDICATION: Small bowel obstruction TECHNIQUE: Portable supine AP views on 04/07/2022 at 0532 hours COMPARISON: 04/06/2022 KUB FINDINGS: NG tube is again noted in the stomach, proximal side-port 5 cm distal to the diaphragmatic hiatus. Surgical clips overlie the right upper quadrant, consistent with cholecystectomy. There is a moderately prominent of fecal material in the colon. A couple of dilated gas distended small bowel segments are noted overlying the left lower quadrant of the abdomen. There is infiltrate or atelectasis in the left lower lobe. Osteopenia. Bilateral old healed rib fractures. Transitional L5 vertebra with sacralization pseudoarthrosis on the right. IMPRESSION: NG tube in stomach Mildly dilated gas distended small bowel, left lower quadrant Reviewed, dictated and finalized at Location A. Reviewed, dictated and finalized at location A.
--- NOTE | ~2022-04-03 | XR_ITS ---
EXAMINATION: XR abdomen/kub 1V DATE: 04/04/2022 06:05 INDICATION: Small bowel obstruction. TECHNIQUE: A supine view of the abdomen on 2 radiographs was obtained. COMPARISON: CT abdomen and pelvis 04/03/2022 FINDINGS: The nasogastric tube tip is in the stomach. There are dilated loops of small bowel in the m idabdomen. The colon is normal in caliber. Surgical clips in the right upper quadrant are likely from cholecystectomy. There are bowel staple lines in the lower abdomen. IMPRESSION: 1. Persistently dilated small bowel, consistent with small bowel obstruction. Reviewed, dictated and finalized at location A.
--- NOTE | ~2022-04-03 | XR_ITS ---
XR abdomen/kub 1V DATE: 04/06/2022 06:10 INDICATION: Small bowel obstruction TECHNIQUE: Portable supine AP view on 04/06/2022 at 0533 hours COMPARISON: 04/05/2022 KUB FINDINGS: NG tube in gastric fundus, the proximal side-port in the lower chest proximal to the diaphr agmatic hiatus. Tube advancement is recommended. Status post cholecystectomy. There is a moderately prominent amount fecal material within the colon. No abnormally dilated small o r large bowel is evident. No visceromegaly is detected. IMPRESSION: NG tube in gastric fundus, with proximal side port in the very lower chest; tube advancem ent is recommended Atrophic material in the colon Status post cholecystectomy Reviewed, dictated and finalized at Location A. Reviewed, dictated and finalized at location A. IMPRESSION: NG tube in gastric fundus, with proximal side port in the very lowe r chest; tube advancement is recommended Atrophic material in the colon Status post cholecystectomy
--- NOTE | ~2022-04-03 | XR_ITS ---
XR abdomen NG/feed tube insert INDICATION: Evaluate NG tube position. TECHNIQUE: Limited KUB perform for evaluating NG tube . COMPARISON: No prior studies for comparison. FINDINGS: NG tube tip in the stomach. Visualized bowel gas pattern is unremarkable. IMPRESSION: 1: NG tube tip in the stomach. Reviewed, dictated and finalized at location A.
--- NOTE | ~2022-04-03 | XR_ITS ---
EXAM: XR abdomen NG/feed tube rechec DATE: 04/06/2022 14:15 HISTORY: ng RECHECK . COMPARISON: 04/06/2022 at 5:33 AM. FINDINGS: Cholecystectomy clips. Streaky bibasilar opacities. NG tube, tip and side port project over the stomach. Normal bowel gas pattern. No organomegaly. No abnormal abdominal calcification. Regiona l bones and soft tissues normal for age. IMPRESSION: NG tube, in good position. Reviewed, dictated and finalized at location K. IMPRESSION: NG tube, in good position.
--- NOTE | ~2022-04-03 | XR_ITS ---
XR chest PICC line 04/05/2022 11:27 Indication: PICC line placement Procedure: AP portable chest Comparison: Comparison to multiple prior studies sequentially, with oldest reviewed study dated 11/2013. Findings: NG tube in the stomach. Right subclavian PICC line tip in the SVC. There is right perihilar atelectasis/scarring. There is left basilar airspace disease. Small left pleural effusion. Multiple bilateral healed rib fractures. Impression: 1: Right perihilar and left basilar infiltrates may represent pneumonia and/or atelectasis. 2: Small left pleural effusion. Reviewed, dictated and finalized at location A. Impression: 1: Right perihilar and left basilar infiltrates may represent pneumonia and/or atelectasis. 2: Small left pleural effusion.
--- NOTE | ~2022-04-03 | XR_ITS ---
EXAMINATION: XR abdomen/kub 1V DATE: 04/05/2022 05:58 INDICATION: Small bowel obstruction. TECHNIQUE: A supine view of the abdomen on 2 radiographs was obtained. COMPARISON: CT abdomen and pelvis 02/01/2022 FINDINGS: There are dilated loops of small bowel. The colon is decompressed. The nasogastric tube tip is in the stomach with proximal side port in the distal esophagus. Surgical clips in the right upper quadrant are likely from cholecystectomy. IMPRESSION: 1. Persistently dilated small bowel, consistent with small bowel obstruction. 2. Nasogastric tube tip in the stomach with proximal side port in the distal esophagus. Advancement 5 cm is recommended. Reviewed, dictated and finalized at location A. IMPRESSION: 1. Persistently dilated small bowel, consistent with small bowel obstruction. 2. Nasogastric tube tip in the stomach with proximal side port in the distal es ophagus. Advancement 5 cm is recommended.
[2022-04-03 06:17] VITALS: BP 126/80; PULSE 84; RESP 20; TEMP 36.1; O2SAT 96
[2022-04-03 06:44] LABS: Appearance Urine Clear (Clear); Basophils Percent Auto 0.3 % (0.2-1.2); Bilirubin Urine Negative (Negative); Blood Urine 2+ (Negative); Color Urine Yellow (Yellow); Eosinophils Absolute Auto 0.1 K/mm3 (0-0.3); Eosinophils Percent Auto 0.8 % (0-4.4); Glucose Urine UA Negative (Negative); Hematocrit 47.8 % (37.0-47.0); Hemoglobin 15.5 g/dL (12.0-15.0); Immature Granulocyte Absolute 0.07 K/mm3 (0.00-0.031); Immature Granulocyte Percent A 0.7 % (0-0.5); Ketones Urine Trace mg/dL (Negative); Leukocyte Esterase Ur Negative LEU/UL (Negative); Lymphocytes Absolute Auto 2.57 K/mm3 (0.9-3.2); Lymphocytes Percent Auto 24.8 % (18.3-44.2); Mean Corpuscular HGB Conc 32.4 g/dl (32-36); Mean Corpuscular Hemoglobin 30.4 pg (26-34); Mean Corpuscular Volume 93.7 fl (80-100); Mean Platelet Volume 9.9 fl (7.4-10.4); Monocytes Absolute Auto 0.6 K/mm3 (0.1-0.6); Monocytes Percent Auto 5.4 % (2.6-8.5); Nitrate Urine Negative (Negative); Platelet Count Result 333 k/mm3 (150-375); Protein Urine Negative (Negative); Red Cell Distribution Width 17.8 % (11.5-14.5); Specific Grav Ur 1.025 (1.001-1.035); Urobilinogen Urine 0.2 mg/dL (<2.0); White Blood Count 10.4 K/mm3 (4.5-10.0); pH Urine 5.5 (5.0-9.0)
[2022-04-03 06:58] LABS: Alanine Aminotransferase 23 U/L (6-35); Albumin Level 4.6 g/dL (3.5-5.1); Alkaline Phosphatase 107 U/L (38-126); Anion Gap 8 mmol/L (8-16); Aspartate Amino Transferase 31 U/L (14-36); Bilirubin,Total 0.4 mg/dL (0.2-1.3); Blood Urea Nitrogen 14 mg/dL (7-17); Calcium 9.8 mg/dL (8.4-10.2); Carbon Dioxide 29 mmol/L (22-30); Chloride 101 mmol/L (98-107); Estimated CRCL calculation 79 ml/min; Estimated Glomerular Filt Rate > 60; Glucose 118 mg/dL (65-110); Lipase 43 U/L (23-300); Potassium 3.9 mmol/L (3.4-5.0); Sodium 138 mmol/L (137-145)
[2022-04-03] MEDS: SODIUM CHLORIDE 0.9% IV 1,000 ML 999 ML IV CONT (07:29)
[2022-04-03] MEDS: ONDANSETRON INJ 4 MG/2 ML VIAL IV PUSH ×2 (07:29→09:56)
[2022-04-03 08:17] LABS: Lactic Acid Reflex 0.8 mmol/L (0.7-2.0)
--- NOTE | 2022-04-03 08:22 | ED.ABDPAIN ---
HPI - Abdominal Pain General Chief Complaint: Abdominal Pain Stated Complaint: ABD PAIN, HX SBO Time Seen by Provider: 04/03/22 06:27 Source: RN notes reviewed History of Present Illness HPI narrative: Patient presents emergency room from home for abdominal pain. Patient states she has abdominal pain that is diffuse throughout the abdomen. The pain is described as cramping. States a feeling of previous bowel obstructions. States that her last bowel movement was on Friday when she was having diarrhea but states she has not had a bowel movement since that time. She notes some nausea but denies any vomiting she denies any fevers or chills chest pain shortness of breath or any other symptoms Related Data Home Medications Medication Instructions Recorded Confirmed albuterol sulfate 90 mcg/actuation 2 inhalation inhalation Q4H PRN 09/21/19 03/11/22 aerosol inhaler (ProAir HFA) Shortness Of Breath Or Wheezing modafinil 200 mg tablet 200 mg PO QAM 09/21/19 03/11/22 ferrous sulfate 325 mg (65 mg 325 mg PO DAILY 01/09/22 03/11/22 iron) tablet fluticasone fur. 100 mcg-umeclid 1 inh inhalation DAILY 03/28/22 62.5 mcg-vilant 25 mcg inhalat.powder (Trelegy Ellipta) oxygen-air delivery systems 03/28/22 Allergies Allergy/AdvReac Type Severity Reaction Status Date / Time latex Allergy Unknown unknown Verified 03/28/22 13:33 Penicillins Allergy Unknown unknown Verified 03/28/22 13:33 Review of Systems Review of Systems: Gen.: Denies fevers or chills ENT: Denies congestion Respiratory: Denies shortness of breath or cough CV: Denies chest pain or palpitations GI: See HPI Musculoskeletal: Denies back pain or muscle pain Neuro: Denies numbness, tingling, weakness or focal weakness Skin: Denies rash Except as documented, all other systems reviewed and negative [facility] Past Medical History Medical History Chronic anemia (Unknown) Chronic back pain Chronic obstructive pulmonary disease (Unknown) Chronic respiratory failure with hypoxia On 2 liters nasal cannula p.r.n. Depression with anxiety Dyslipidemia Gastroesophageal reflux disease (Unknown) History of vaginal delivery Hypothyroidism Migraine headache Obstructive sleep apnea Peripheral neuropathy Restless leg syndrome, controlled Scoliosis Small bowel obstruction due to adhesions Previous, multiple admissions for such. Vitamin D deficiency Surgical History Surgical History Bladder prolapse Repair of bladder prolapse. History of bilateral cataract extraction History of bowel resection Secondary to bowel obstruction with colostomy and subsequent takedown. History of cholecystectomy History of colostomy History of colostomy reversal History of eye surgery Treatment of amblyopia. History of hysterectomy History of neck surgery History of tonsillectomy and adenoidectomy Rectal prolapse Rectal prolapse repair. Status post small bowel resection (~01/2019) Exploratory laparotomy with resection of 36 centimeters of the small bowel with extensive adhesiolysis and ileal-ileal anastomosis. [place] teeth removed Family History Family History Father Cirrhosis Alcoholism Mother Emphysema of lung Alcoholism Social History Social History Social History: The patient lives in [place] with her significant other, Luis Fernando. 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 She smoked about a pack of cigarettes per day for > 30 years and quit in 2018. She denies alcohol and illicit substance abuse. She designates her son, Rohit, as her surrogate decision maker and she wishes to be a full code. Smoking packs per day: 0.5 Smoking cigarettes per day: 10.0 Years smoked: 40 Smoking pack-years: 20.00 Smoking status: Current every day smoker Tobacco t
[2022-04-03 08:58] LABS: Mucus Urine Rare /lpf; Squamous Epithelial Cell Urine Moderate /hpf (Few); WBC Urine 0-3 /hpf
[2022-04-03 09:02] LABS: Add Urine Microscopic? YES
[2022-04-03] MEDS: PANTOPRAZOLE SODIUM IV 40 MG VIAL IV PUSH (09:56)
[2022-04-03] MEDS: SODIUM CHLORIDE 0.9% IV 1,000 ML 125 ML IV CONT ×2 (10:00→18:35)
--- NOTE | 2022-04-03 10:04 | PM.CNGS ---
Assessment and Plan Assessment and plan (1) SBO (small bowel obstruction): Code(s): K56.609 - Unspecified intestinal obstruction, unspecified as to partial versus complete obstruction Status: Acute Assessment and Plan: CT scan reviewed and discussed with the patient in detail. There is evidence of a small bowel obstruction with a transition point at the anastomosis in the distal ileum. This has consistently been the transition zone on her previous CT scans from January of 2020 and November 2021. She has an extensive previous surgical history described above in the HPI. We will initially treat this conservatively with NG tube decompression, bowel rest, IV fluids, and analgesics as needed. We will monitor with serial abdominal exams and imaging. Discussed with the patient that if she does not improve with conservative measures, then she could ultimately require surgical exploration. Thank you for allowing us to see the patient in consultation and we will continue to follow along with you. (2) COPD (chronic obstructive pulmonary disease): Code(s): J44.9 - Chronic obstructive pulmonary disease, unspecified Status: Chronic (3) Chronic respiratory failure with hypoxia: Code(s): J96.11 - Chronic respiratory failure with hypoxia Status: Acute Assessment and Plan: Wears 2 L of oxygen at home p.r.n.. (4) Obstructive sleep apnea: Code(s): G47.33 - Obstructive sleep apnea (adult) (pediatric) Status: Acute (5) BMI 31.0-31.9,adult: Code(s): Z68.31 - Body mass index [BMI] 31.0-31.9, adult Status: Acute (6) Gastroesophageal reflux disease: Onset Date: Unknown Qualifiers: Esophagitis presence: without esophagitis Qualified Code(s): K21.9 - Gastro-esophageal reflux disease without esophagitis Code(s): K21.9 - Gastro-esophageal reflux disease without esophagitis Status: Chronic Plan I have discussed the patient's case and plan of care with Dr. Villarreal. History of Present Illness Consult details Consult date: 04/03/22 Reason for consult: other (Small-bowel obstruction) Requesting physician: Tristin Hampton DO Narrative: This is a 61-year-old woman who has an extensive history of multiple abdominal surgeries and multiple hospitalizations for small-bowel obstructions in the past. In 2009, she had a hysterectomy, bilateral salpingo oophorectomy, which was complicated by an enterovaginal fistula. She subsequently had diversion, but the fistula did not heal. She finally went back a year later and had the rectovaginal fistula closed, takedown diverting colostomy, low anterior resection, and diverting loop ileostomy. She eventually also had takedown of the loop ileostomy. Since then, she has had multiple hospitalizations for small-bowel obstructions with 1 episode requiring surgery in January of 2019. She underwent an exploratory laparotomy and had about 36 cm of her small bowel resected at a previous anastomosis. Her most recent hospitalization was in November of 2021 for a small-bowel obstruction that resolved with NG tube decompression and conservative management. She has done well since that admission without any significant changes until last night. She reports an onset of generalized abdominal pain throughout the night that continued to worsen. She developed nausea. This felt similar to previous episodes of a small bowel obstruction and she subsequently came into the ER for further evaluation. CT scan of the abdomen/pelvis showed small bowel obstruction with transition point at the anastomosis in the distal ileum. She began vomiting in the ER. Labs showed a WBC count 10,400 and lactic acid normal. NG tube was placed and confirmed with KUB. Patient has been admitted in this setting. Our service was consulted for the small bowel obstruction. She is now seen on the medical floor. Per nursing, she just got into the room from ER. Her NG tube was in place but just got hooked
--- NOTE | 2022-04-03 10:29 | PM.IMHP ---
H&P: HPI History of Present Illness Date/Time: 04/03/22 6019 Chief Complaint: Abdominal Pain Narrative: This 61 year old female patient with significant PMH of anemia, COPD, chronic back pain, Depression, HLD, GERD, LEVY, Peripheral Neuropathy, RLS, Vitamin D deficiency and most pertinent, multiple SBO related to adhesions with history of bowel resection with ostomy placement and takedown, and then in 01/2019 a resection of 36 cm of small bowel with extensive adhesiolysis and ileal-ileal anastomosis, presents to the ER with complaints of having severe abdominal pain that started last evening. Nothing makes the pain better or worse, and it is a severe, tight cramp that comes in waves. She endorses pain in the front and center of her abdomen just below the epigastric region with nausea but no vomiting. She reports that it feels like her other bowel obstructions. In the ER workup was performed and was significant for CT of the abdomen and pelvis that shows a SBO with transition point at the anastomosis site in the distal ileum. NG tube was placed and General surgery has been consulted. Pt. will be kept NPO and she will have prn pain meds and anti-emetics. She is admitted to hospitalist service at this time. At the time of my assessment, pt. is crying out in pain and appears to be in acute distress. She is ordered pain medications. She denies any CP, dyspnea, Urinary complaints. Review of Systems Review of Systems: All systems reviewed & are unremarkable except as noted in HPI and below PMFSH Past Medical History Medical History (Updated 04/03/22 @ 11:11 by Lakisha Adames APN-Elle) Chronic anemia (Unknown) Chronic back pain Chronic obstructive pulmonary disease (Unknown) Chronic respiratory failure with hypoxia On 2 liters nasal cannula p.r.n. Depression with anxiety Dyslipidemia Gastroesophageal reflux disease (Unknown) History of vaginal delivery Hypothyroidism Migraine headache Obstructive sleep apnea Peripheral neuropathy Restless leg syndrome, controlled Scoliosis Small bowel obstruction due to adhesions Previous, multiple admissions for such. Vitamin D deficiency Surgical History Surgical History Bladder prolapse Repair of bladder prolapse. History of bilateral cataract extraction History of bowel resection 2009 low anterior resection History of cholecystectomy Open cholecystectomy History of colostomy History of colostomy reversal History of eye surgery Treatment of amblyopia. History of hysterectomy History of neck surgery History of tonsillectomy and adenoidectomy Rectal prolapse Rectal prolapse repair. Status post small bowel resection (~01/2019) Exploratory laparotomy with resection of 36 centimeters of the small bowel with extensive adhesiolysis and ileal-ileal anastomosis. Hector teeth removed Family History Family History Father Cirrhosis Alcoholism Mother Emphysema of lung Alcoholism Social History Social History Social History: The patient lives in [place] with her significant other, Luis Fernando. 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 She smoked about a pack of cigarettes per day for > 30 years and quit in 2018. She denies alcohol and illicit substance abuse. She designates her son, Rohit, as her surrogate decision maker and she wishes to be a full code. Smoking packs per day: 0.5 Smoking cigarettes per day: 10.0 Years smoked: 40 Smoking pack-years: 20.00 Smoking status: Current every day smoker Tobacco type: cigarettes Second hand tobacco smoke exposure: Yes Smoking end date: 09/01/17 Alcohol intake: never Substance use: never Substance use type: does not use Gender identity (if verbalized by the patient): Female Sexual Orientation (if Verbalized by the Patient): Straight or Heterosexual Spiritual
[2022-04-03 10:30] VITALS: BP 172/94; PULSE 89; RESP 24; TEMP 36.4; O2SAT 96
[2022-04-03 10:56] VITALS: BMI 31.2
--- NOTE | 2022-04-03 11:01 | ADMGEN ---
This patient, Rebecca Ricci, was admitted to 3 [facility] Surg Room 319-01 at 0935. Patient/family oriented to hospital policies and general routines including ID bracelet, bed and alarms, visiting hours, pain management, procedures, bathroom and other care routines, personal items, smoking policy, room service/diet, and visiting hours. Information on how to activate the Rapid Response Team has been discussed. Patient/Family are encouraged to report perceived risks to care and to ask questions if they do not understand what they are told or what they should do.
[2022-04-03] MEDS: MORPHINE SULFATE (*CRX) 4 MG/ML INJ IV PUSH ×2 (13:36→23:04)
[2022-04-03 14:00] VITALS: BP 149/79; PULSE 76; RESP 20; TEMP 36.2; O2SAT 93
[2022-04-03] MEDS: MORPHINE SULFATE (*CRX) 4 MG/ML INJ 2 MG IV PUSH ×2 (18:36→20:55)
[2022-04-03 22:00] VITALS: BP 140/83; PULSE 82; RESP 20; TEMP 36.8; O2SAT 92
[2022-04-03 23:57] VITALS: O2SAT 90
[2022-04-04 00:12] VITALS: O2SAT 93
--- NOTE | 2022-04-04 00:13 | PCRCNOTE ---
Pt is refusing use of hospital CPAP unit on 04/03. Pt has an NG tube in nose and can not use. Pt stated whenever she gets the NG out that she will wear CPAP.
[2022-04-04] MEDS: SODIUM CHLORIDE 0.9% IV 1,000 ML 125 ML IV CONT ×3 (03:20→18:27)
[2022-04-04] MEDS: MORPHINE SULFATE (*CRX) 4 MG/ML INJ IV PUSH ×3 (03:20→18:27)
[2022-04-04 06:00] VITALS: BP 147/85; PULSE 71; RESP 16; TEMP 36.7; O2SAT 97
[2022-04-04] MEDS: MORPHINE SULFATE (*CRX) 4 MG/ML INJ 2 MG IV PUSH (06:01)
[2022-04-04] MEDS: ONDANSETRON INJ 4 MG/2 ML VIAL IV PUSH (06:02)
[2022-04-04 07:58] LABS: Basophils Percent Auto 0.6 % (0.2-1.2); Eosinophils Absolute Auto 0.1 K/mm3 (0-0.3); Eosinophils Percent Auto 1.2 % (0-4.4); Hematocrit 39.9 % (37.0-47.0); Hemoglobin 12.6 g/dL (12.0-15.0); Immature Granulocyte Absolute 0.01 K/mm3 (0.00-0.031); Immature Granulocyte Percent A 0.2 % (0-0.5); Lymphocytes Absolute Auto 1.42 K/mm3 (0.9-3.2); Lymphocytes Percent Auto 28.3 % (18.3-44.2); Mean Corpuscular HGB Conc 31.6 g/dl (32-36); Mean Corpuscular Hemoglobin 30.6 pg (26-34); Mean Corpuscular Volume 96.8 fl (80-100); Mean Platelet Volume 10.1 fl (7.4-10.4); Monocytes Absolute Auto 0.5 K/mm3 (0.1-0.6); Neutrophils Absolute Auto 3.1 K/mm3 (1.3-6.7); Neutrophils Percent Auto 60.7 % (45.5-73.1); Platelet Count Result 240 k/mm3 (150-375); Red Blood Count 4.12 M/mm3 (4.2-5.4); Red Cell Distribution Width 17.8 % (11.5-14.5)
[2022-04-04 08:09] LABS: Alanine Aminotransferase 431 U/L (6-35); Albumin Level 3.4 g/dL (3.5-5.1); Alkaline Phosphatase 117 U/L (38-126); Anion Gap 6 mmol/L (8-16); Aspartate Amino Transferase 485 U/L (14-36); Bilirubin,Total 1.8 mg/dL (0.2-1.3); Blood Urea Nitrogen 13 mg/dL (7-17); Calcium 7.7 mg/dL (8.4-10.2); Carbon Dioxide 28 mmol/L (22-30); Chloride 107 mmol/L (98-107); Estimated CRCL calculation 93 ml/min; Estimated Glomerular Filt Rate > 60; Glucose 112 mg/dL (65-110); Magnesium 1.7 mg/dL (1.6-2.3); Potassium 3.4 mmol/L (3.4-5.0); Sodium 141 mmol/L (137-145)
[2022-04-04] MEDS: PANTOPRAZOLE SODIUM IV 40 MG VIAL IV PUSH (09:09)
--- NOTE | 2022-04-04 11:43 | PM.IMPN ---
Progress Note: A&P Assessment and Plan (1) SBO (small bowel obstruction): Code(s): K56.609 - Unspecified intestinal obstruction, unspecified as to partial versus complete obstruction Status: Acute Assessment and Plan: - As evidenced by CT scan that demonstrates SBO with transition point at the anastomotic site in distal ileum. - General Surgery is co-managing with Hospitalist Service. - Maintain NG tube to suction. - Keep NPO - PRN Pain meds and anti-emetics. - PPI therapy - Continue IVF of NS at 125 ml/hr for hydration. - Monitor daily labs and VS. - Daily imaging with KUB's (2) COPD (chronic obstructive pulmonary disease): Code(s): J44.9 - Chronic obstructive pulmonary disease, unspecified Status: Chronic Assessment and Plan: - Not currently in exacerbation. - Will monitor patient's Respiratory status for any changes. (3) B12 deficiency: Code(s): E53.8 - Deficiency of other specified B group vitamins Status: Chronic Assessment and Plan: - Currently holding oral medications in light of SBO. Will resume at a later date. (4) MARÍA (iron deficiency anemia): Code(s): D50.9 - Iron deficiency anemia, unspecified Status: Chronic Assessment and Plan: - Hgb on admission is 15.5. - Will hold any current oral supplementation in setting of current acute illness and restart at a later date. (5) Gastroesophageal reflux disease: Onset Date: Unknown Qualifiers: Esophagitis presence: without esophagitis Qualified Code(s): K21.9 - Gastro-esophageal reflux disease without esophagitis Code(s): K21.9 - Gastro-esophageal reflux disease without esophagitis Status: Chronic Assessment and Plan: - Protonix 40 mg IVP daily. Time Spent With Patient Time with patient: 15 - 25 minutes Subjective Date/time seen: 04/04/22 11:20 This pt. was examined at the bedside today in interval assessment. She currently has approximately 500 ml of green, bilious fluid in her NG container. She has continued complaints of pain and she has no other symptoms to report. No CP, Distress, Dyspnea, N/V/D or any other concerns. Abdominal imaging that was performed this AM demonstrated no improvement appearance of obstruction. The plan is to keep treating her pain, and keep her NG on. We appreciate the continued Co-management of Gen Sgy in the care of this patient. Review of Systems Review of Systems: All systems reviewed & are unremarkable except as noted in HPI and below Exam Eyes: General: appearance normal, both eyes and all related structures Sclera: sclerae normal Pupils: Equal, round and reactive pupils present EOM: EOMs intact bilaterally Neck: Neck: supple and no JVD Carotids: no bruits Lymphatic: lymphadenopathy not noted Resp: Effort & Inspection: normal respiratory effort Auscultation: clear to auscultation bilaterally Cardio: Rate: regular rate Rhythm: regular rhythm GI: Inspection: distended GI Palp: Yes Soft to palpation, No Tenderness to palpation present (GI) and No Guarding due to palpation present (GI) Auscultation: normal bowel sounds Skin: General skin exam: normal color and no rashes or lesions noted Wounds: no wounds Neuro: General: gait normal Speech: normal speech Motor exam (neuro): 5/5 motor strength present throughout and Normal motor muscle tone present throughout Sensory Exam: normal sensation Extrem: General: normal to inspection and no edema Psych: Mental Status: mental status grossly normal Affect: normal affect Attitude: not belligerent Objective Data Vital Signs Vital Signs: Vital Signs - 24 hr 04/03/22 14:00 04/03/22 16:03 04/03/22 19:47 Temperature 97.2 F L Pulse Rate 76 Respiratory Rate 20 Blood Pressure 149/79 H Pulse Oximetry 93 Oxygen Delivery Room Air Room Air Oxygen Flow Rate Fraction of Inspired Oxygen 04/03/22 22:00 04/03/22 23:57 04/04/22 00:12 Temperature 98
--- NOTE | 2022-04-04 12:25 | PM.PNGS ---
Progress Note: A&P Assessment and Plan (1) SBO (small bowel obstruction): Code(s): K56.609 - Unspecified intestinal obstruction, unspecified as to partial versus complete obstruction Status: Acute Assessment and Plan: Still having pain. Exam and plain films have not changed very much. Continue NPO with NG tube and IV fluids. Continue p.r.n. analgesics. Hopefully will start to show some improvement soon. (2) COPD (chronic obstructive pulmonary disease): Code(s): J44.9 - Chronic obstructive pulmonary disease, unspecified Status: Chronic Assessment and Plan: Increases surgical risk (3) Chronic respiratory failure with hypoxia: Code(s): J96.11 - Chronic respiratory failure with hypoxia Status: Acute Assessment and Plan: Increases surgical risks (4) Anemia: Qualifiers: Anemia type: iron deficiency Iron deficiency anemia type: unspecified iron deficiency Qualified Code(s): D50.9 - Iron deficiency anemia, unspecified Code(s): D64.9 - Anemia, unspecified Status: Acute Assessment and Plan: Increases surgical risks Subjective Subjective Date/Time Seen: 04/04/22 12:25 Patient reports: still having pain, no flatus, no bowel movement and afebrile Review of Systems Review of Systems: All systems reviewed & are unremarkable except as noted in HPI and below (HPI and those items noted below) Constitutional: Constitutional: Denies chills and Denies fever(s) Cardiovascular: Cardiovascular: Denies chest pain, Denies diaphoresis, Denies dyspnea and Denies paroxysmal nocturnal dyspnea Respiratory: Respiratory: Denies chest congestion, Denies cough and Denies dyspnea Integumentary/Breasts: Skin/Breast: Denies lesions and Denies rash Exam Const: General: comfortable and no acute distress; No confusion Orientation/consciousness: patient oriented x3 and No confusion GI: Inspection: distended and scar GI Palp: Yes Soft to palpation, Yes Tenderness to palpation present (GI) (Right mid abdomen), No Guarding due to palpation present (GI) and No Rebound tenderness present Auscultation: Hypoactive bowel sounds present Neuro: General: patient oriented x3, no focal motor deficits and No confusion Extrem: General: no calf tenderness and no edema Psych: Affect: normal affect Insight: Good insight present (Psych) Judgement: Good judgement present (Psych) Objective Data Vital Signs Vital Signs: Vital Signs - 24 hr 04/03/22 14:00 04/03/22 16:03 04/03/22 19:47 Temperature 36.2 C L Pulse Rate 76 Respiratory Rate 20 Blood Pressure 149/79 H Pulse Oximetry 93 Oxygen Delivery Room Air Room Air Oxygen Flow Rate Fraction of Inspired Oxygen 04/03/22 22:00 04/03/22 23:57 04/04/22 00:12 Temperature 36.8 C Pulse Rate 82 Respiratory Rate 20 Blood Pressure 140/83 Pulse Oximetry 92 90 93 Oxygen Delivery Nasal Cannula Nasal Cannula Oxygen Flow Rate 2 2 Fraction of Inspired Oxygen 2 04/04/22 06:00 04/04/22 09:15 Temperature 36.7 C Pulse Rate 71 Respiratory Rate 16 Blood Pressure 147/85 H Pulse Oximetry 97 Oxygen Delivery Room Air Oxygen Flow Rate Fraction of Inspired Oxygen Intake/Output Intake/Output: Intake & Output 04/01/22 04/02/22 04/03/22 04/04/22 23:59 23:59 23:59 23:59 Intake Total 2200 2120 Output Total 990 630 Balance 1210 1490 Meds/Results Medications: Active Medications Generic Name Dose Route Start Last Admin Trade Name Freq PRN Reason Stop Dose Admin Hydromorphone HCl 1 mg 04/03/22 10:29 Hydromorphone Hcl Inj (*Crx) 1 Mg/Ml Syr IV PUSH Q3H PRN Pain Rated 10 Sodium Chloride 1,000 mls @ 125 mls/hr 04/03/22 08:30 04/04/22 11:18 Normal Saline Iv IV CONT 125 mls/hr .Q8H ARELI Administration Morphine Sulfate 4 mg 04/03/22 10:43 04/04/22 09:15 Morphine Sulfate (*Crx) 4 Mg/Ml Inj IV PUSH 4 mg Q2H PRN Administration Pain R
[2022-04-04 14:00] VITALS: BP 134/71; PULSE 70; RESP 18; TEMP 36.1; O2SAT 98
[2022-04-04 22:00] VITALS: BP 152/75; PULSE 64; RESP 18; TEMP 36.2; O2SAT 96
[2022-04-05] MEDS: MORPHINE SULFATE (*CRX) 4 MG/ML INJ IV PUSH ×4 (00:52→23:37)
[2022-04-05] MEDS: SODIUM CHLORIDE 0.9% IV 1,000 ML 125 ML IV CONT ×3 (03:43→23:38)
[2022-04-05 06:00] VITALS: BP 154/71; PULSE 57; RESP 18; TEMP 36.8; O2SAT 96
[2022-04-05 06:46] LABS: Basophils Percent Auto 0.3 % (0.2-1.2); Eosinophils Absolute Auto 0.1 K/mm3 (0-0.3); Eosinophils Percent Auto 1.1 % (0-4.4); Hematocrit 37.2 % (37.0-47.0); Hemoglobin 11.6 g/dL (12.0-15.0); Immature Granulocyte Absolute 0.04 K/mm3 (0.00-0.031); Immature Granulocyte Percent A 0.5 % (0-0.5); Lymphocytes Absolute Auto 2.03 K/mm3 (0.9-3.2); Lymphocytes Percent Auto 25.7 % (18.3-44.2); Mean Corpuscular HGB Conc 31.2 g/dl (32-36); Mean Corpuscular Hemoglobin 30.2 pg (26-34); Mean Corpuscular Volume 96.9 fl (80-100); Mean Platelet Volume 10.2 fl (7.4-10.4); Monocytes Absolute Auto 0.7 K/mm3 (0.1-0.6); Monocytes Percent Auto 8.3 % (2.6-8.5); Neutrophils Absolute Auto 5.1 K/mm3 (1.3-6.7); Neutrophils Percent Auto 64.1 % (45.5-73.1); Platelet Count Result 220 k/mm3 (150-375); Red Blood Count 3.84 M/mm3 (4.2-5.4); Red Cell Distribution Width 17.2 % (11.5-14.5); White Blood Count 7.9 K/mm3 (4.5-10.0)
[2022-04-05 06:56] LABS: Alanine Aminotransferase 273 U/L (6-35); Albumin Level 3.2 g/dL (3.5-5.1); Alkaline Phosphatase 128 U/L (38-126); Anion Gap 6 mmol/L (8-16); Aspartate Amino Transferase 148 U/L (14-36); Bilirubin,Total 0.7 mg/dL (0.2-1.3); Blood Urea Nitrogen 9 mg/dL (7-17); Calcium 7.5 mg/dL (8.4-10.2); Carbon Dioxide 26 mmol/L (22-30); Chloride 105 mmol/L (98-107); Estimated CRCL calculation 93 ml/min; Estimated Glomerular Filt Rate > 60; Glucose 84 mg/dL (65-110); Magnesium 1.7 mg/dL (1.6-2.3); Potassium 3.1 mmol/L (3.4-5.0); Sodium 137 mmol/L (137-145)
--- NOTE | 2022-04-05 07:05 | PM.PNGS ---
Progress Note: A&P Assessment and Plan (1) SBO (small bowel obstruction): Code(s): K56.609 - Unspecified intestinal obstruction, unspecified as to partial versus complete obstruction Status: Acute Assessment and Plan: still having symptoms and x-rays, exam suggest persistent small-bowel obstruction. Will continue NG tube and NPO. Advance NG tube about 6 in today as it is barely in the stomach. Hopefully will turn around. If not she will eventually need laparotomy again. (2) COPD (chronic obstructive pulmonary disease): Code(s): J44.9 - Chronic obstructive pulmonary disease, unspecified Status: Chronic Assessment and Plan: Stable, monitoring. (3) Chronic respiratory failure with hypoxia: Code(s): J96.11 - Chronic respiratory failure with hypoxia Status: Chronic Assessment and Plan: Usually just on oxygen at night. Has not required while in the hospital. (4) B12 deficiency: Code(s): E53.8 - Deficiency of other specified B group vitamins Status: Chronic (5) MARÍA (iron deficiency anemia): Code(s): D50.9 - Iron deficiency anemia, unspecified Status: Chronic (6) Protein-calorie malnutrition, moderate: Code(s): E44.0 - Moderate protein-calorie malnutrition Status: Acute Assessment and Plan: Several days now of little or no oral intake. Will have PICC line placed and start on TPN today. Explained to patient. She agrees. Subjective Subjective Date/Time Seen: 04/05/22 07:05 Patient reports: still having pain, no bowel movement and afebrile Review of Systems Review of Systems: All systems reviewed & are unremarkable except as noted in HPI and below ( HPI and those items noted below) Constitutional: Constitutional: Denies chills and Denies fever(s) Cardiovascular: Cardiovascular: Denies chest pain, Denies diaphoresis, Denies dyspnea and Denies paroxysmal nocturnal dyspnea Respiratory: Respiratory: Denies chest congestion, Denies cough and Denies dyspnea Gastrointestinal: Gastrointestinal: Reports as per HPI, Reports abdominal pain ( cramping pressure comes in from both sides and spreads towards the mid abd), Reports constipation and Reports GI cramping Integumentary/Breasts: Skin/Breast: Denies lesions and Denies rash Exam Const: General: comfortable and no acute distress; No confusion Orientation/consciousness: patient oriented x3 and No confusion GI: Inspection: distended and scar GI Palp: Yes Soft to palpation, Yes Tenderness to palpation present (GI) ( diffuse but more in the upper abdomen), No Guarding due to palpation present (GI) and No Rebound tenderness present Auscultation: Hypoactive bowel sounds present Neuro: General: patient oriented x3, no focal motor deficits and No confusion Extrem: General: no calf tenderness and no edema Psych: Affect: normal affect Insight: Good insight present (Psych) Judgement: Good judgement present (Psych) Objective Data Vital Signs Vital Signs: Vital Signs - 24 hr 04/04/22 09:15 04/04/22 14:00 04/04/22 22:00 Temperature 36.1 C L 36.2 C L Pulse Rate 70 64 Respiratory Rate 18 18 Blood Pressure 134/71 152/75 H Pulse Oximetry 98 96 Oxygen Delivery Room Air 04/04/22 20:00 04/05/22 06:00 Temperature 36.8 C Pulse Rate 57 L Respiratory Rate 18 Blood Pressure 154/71 H Pulse Oximetry 96 Oxygen Delivery Room Air Intake/Output Intake/Output: Intake & Output 04/02/22 04/03/22 04/04/22 04/05/22 23:59 23:59 23:59 23:59 Intake Total 2200 3120 1000 Output Total 990 1830 200 Balance 1210 1290 800 Meds/Results Medications: Active Medications Generic Name Dose Route Start Last Admin Trade Name Freq PRN Reason Stop Dose Admin Hydromorphone HCl 1 mg 04/03/22 10:29 Hydromorphone Hcl Inj (*Crx) 1 Mg/Ml Syr IV PUSH Q3H PRN Pain Rated 10 Sodium Chloride 1,000 mls @ 125 mls/hr 04/03/22 08:30 04/05/22 03:43 No
[2022-04-05 08:16] LABS: Partial Thromboplastin Time 29.8 SECONDS (22.3-36.8)
[2022-04-05] MEDS: POTASSIUM CHLORIDE INJ 40 MEQ in SODIUM CHLORIDE 0.9% IV 500 ML 130 MEQ IVPB (08:41)
[2022-04-05] MEDS: ENOXAPARIN 40 MG/0.4 ML SYRINGE SUB-Q (08:42)
[2022-04-05] MEDS: PANTOPRAZOLE SODIUM IV 40 MG VIAL IV PUSH (08:42)
[2022-04-05 09:33] LABS: Transferrin 151 mg/dL (206-381)
[2022-04-05] MEDS: ONDANSETRON INJ 4 MG/2 ML VIAL IV PUSH (10:35)
[2022-04-05] MEDS: MORPHINE SULFATE (*CRX) 4 MG/ML INJ 2 MG IV PUSH ×2 (10:37→15:36)
[2022-04-05 10:42] VITALS: BMI 31.2
[2022-04-05 11:47] LABS: Glucose Point of Care 68 mg/dl (65-105)
[2022-04-05] MEDS: AMINO ACIDS 5%/D15W/E-LYTES/CA 2,000 ML with MULTIVITAMINS-12 INJ VIAL 1 2.5 ML, MULTIV... 60 ML IV CONT (13:00)
[2022-04-05] MEDS: FAT EMULSIONS IV 20% 250 ML 20.83 ML IVPB (13:01)
[2022-04-05] MEDS: CENTRAL LINE FLUSH 10 ML IV PUSH ×2 (13:09→20:19)
--- NOTE | 2022-04-05 13:32 | PM.IMPN ---
Progress Note: A&P Assessment and Plan (1) SBO (small bowel obstruction): Code(s): K56.609 - Unspecified intestinal obstruction, unspecified as to partial versus complete obstruction Status: Acute Assessment and Plan: - As evidenced by CT scan that demonstrates SBO with transition point at the anastomotic site in distal ileum. - General Surgery is co-managing with Hospitalist Service. Advised pt. that they will continue to allow the obstruction to be cleared in this manner, but if it has not by Friday, pt. may need another Laparotomy. - Maintain NG tube to suction. It was advanced another 5 cm today, and is draining a dark bilious color liquid. - Keep NPO - PRN Pain meds and anti-emetics. - PPI therapy - PICC line placed today and pt. is being started on TPN. - Monitor daily labs and VS. - Daily imaging with KUB's have consistently demonstrated a persistent obstruction without change. (2) COPD (chronic obstructive pulmonary disease): Code(s): J44.9 - Chronic obstructive pulmonary disease, unspecified Status: Chronic Assessment and Plan: - Not currently in exacerbation. - Will monitor patient's Respiratory status for any changes. (3) B12 deficiency: Code(s): E53.8 - Deficiency of other specified B group vitamins Status: Chronic Assessment and Plan: - Currently holding oral medications in light of SBO. Will resume at a later date. (4) MARÍA (iron deficiency anemia): Code(s): D50.9 - Iron deficiency anemia, unspecified Status: Chronic Assessment and Plan: - Hgb on admission is 15.5. - Will hold any current oral supplementation in setting of current acute illness and restart at a later date. - Check Iron Level to determine if pt. needs IV Iron while here. (5) Gastroesophageal reflux disease: Onset Date: Unknown Qualifiers: Esophagitis presence: without esophagitis Qualified Code(s): K21.9 - Gastro-esophageal reflux disease without esophagitis Code(s): K21.9 - Gastro-esophageal reflux disease without esophagitis Status: Chronic Assessment and Plan: - Protonix 40 mg IVP daily. Time Spent With Patient Time with patient: 15 - 25 minutes Subjective Date/time seen: 04/05/22 8663 This pt. was examined at the bedside in interval assessment. She has not passed any flatus yet. Her NG continues to put out bilious drainage, and her repeat KUB this AM showed no interval improvement. A PICC line is placed today and TPN is going to be started. Dr. Villarreal evaluated patient today and advised that if bowel obstruction does not clear by Friday, she will have to undergo another Laparotomy. Pt. complains of pain today in the epigastric region that remains. On this AM's KUB, radiologist suggested advancing the NG tube approximately 5 cm as the distal tip is currently in the Esophagus. Review of Systems Review of Systems: All systems reviewed & are unremarkable except as noted in HPI and below Exam Const: General: in distress severe (Crying out in pain) HENMT: General nose exam: Normal nares present ( NG tube is present and patent to medium wall suction.) and no epistaxis Eyes: General: appearance normal, both eyes and all related structures Sclera: sclerae normal Pupils: Equal, round and reactive pupils present EOM: EOMs intact bilaterally Neck: Neck: supple and no JVD Thyroid: thyroid normal Carotids: no bruits Lymphatic: lymphadenopathy not noted Chest: Other: Not tender to palpation Resp: Effort & Inspection: normal respiratory effort Auscultation: clear to auscultation bilaterally Cardio: Rate: regular rate Rhythm: regular rhythm Heart sounds: no gallops, no murmurs and no rubs GI: Inspection: distended Auscultation: abnormal bowel sounds (Absent from the middle abdomen to the left side.) Skin: General skin exam: normal color and no rashes or lesions noted Wounds: no wounds Neuro: General: gait normal Cran
[2022-04-05 14:00] VITALS: BP 160/79; PULSE 61; RESP 20; TEMP 36.1; O2SAT 98
[2022-04-05 17:01] LABS: Iron 65 ug/dL (37-170)
[2022-04-05 17:10] LABS: Percent Iron Saturation 30 % (20-50)
[2022-04-05 18:06] LABS: Glucose Point of Care 117 mg/dl (65-105)
[2022-04-05 20:29] LABS: Glucose Point of Care 143 mg/dl (65-105)
[2022-04-05 21:26] VITALS: BP 187/73; PULSE 56; RESP 14; TEMP 36.5; O2SAT 97
[2022-04-05 23:15] VITALS: O2SAT 96
[2022-04-05 23:58] LABS: Glucose Point of Care 144 mg/dl (65-105)
[2022-04-06] MEDS: MORPHINE SULFATE (*CRX) 4 MG/ML INJ IV PUSH ×6 (03:01→23:15)
[2022-04-06] MEDS: CENTRAL LINE FLUSH 10 ML IV PUSH ×3 (05:25→22:00)
[2022-04-06 05:36] LABS: Glucose Point of Care 155 mg/dl (65-105)
[2022-04-06 06:00] VITALS: BP 154/74; PULSE 59; RESP 16; TEMP 36.1; O2SAT 97
[2022-04-06 06:56] LABS: Anion Gap 5 mmol/L (8-16); Blood Urea Nitrogen 8 mg/dL (7-17); Calcium 7.8 mg/dL (8.4-10.2); Carbon Dioxide 30 mmol/L (22-30); Chloride 103 mmol/L (98-107); Estimated CRCL calculation 113 ml/min; Estimated Glomerular Filt Rate > 60; Glucose 147 mg/dL (65-110); Potassium 3.4 mmol/L (3.4-5.0); Sodium 138 mmol/L (137-145); Triglycerides 120 mg/dL (<150)
[2022-04-06] MEDS: SODIUM CHLORIDE 0.9% IV 1,000 ML 125 ML IV CONT ×2 (07:58→16:06)
[2022-04-06] MEDS: ENOXAPARIN 40 MG/0.4 ML SYRINGE SUB-Q (07:59)
[2022-04-06] MEDS: PANTOPRAZOLE SODIUM IV 40 MG VIAL IV PUSH (07:59)
[2022-04-06 08:00] VITALS: O2SAT 98
[2022-04-06] MEDS: HYDROmorphone HCL INJ (*CRX) 1 MG/ML SYR IV PUSH (08:03)
[2022-04-06 09:53] VITALS: O2SAT 92
[2022-04-06 11:52] LABS: Glucose Point of Care 140 mg/dl (65-105)
--- NOTE | 2022-04-06 11:58 | PM.IMPN ---
Progress Note: A&P Assessment and Plan (1) SBO (small bowel obstruction): Code(s): K56.609 - Unspecified intestinal obstruction, unspecified as to partial versus complete obstruction Status: Acute Assessment and Plan: - Initially As evidenced by CT scan that demonstrates SBO with transition point at the anastomotic site in distal ileum. - General Surgery is co-managing with Hospitalist Service. Advised pt. that they will continue to allow the obstruction to be cleared in this manner, but if it has not by Friday, pt. may need another Laparotomy. - Maintain NG tube to suction. NG continues to drain a dark bilious color drainage. - Keep NPO with TPN through PICC line. - PRN Pain meds and anti-emetics. - PPI therapy - Monitor daily labs and VS. - Daily imaging with KUB's have consistently demonstrate no dilated loops of bowel today in either the small or large intestine. This is an interval improvement. - Pt. is passing Flatus today. (2) COPD (chronic obstructive pulmonary disease): Code(s): J44.9 - Chronic obstructive pulmonary disease, unspecified Status: Chronic Assessment and Plan: - Not currently in exacerbation. - Will monitor patient's Respiratory status for any changes. (3) B12 deficiency: Code(s): E53.8 - Deficiency of other specified B group vitamins Status: Chronic Assessment and Plan: - Currently holding oral medications in light of SBO. Will resume at a later date. (4) MARÍA (iron deficiency anemia): Code(s): D50.9 - Iron deficiency anemia, unspecified Status: Chronic Assessment and Plan: - Hgb on admission is 15.5. - Will hold any current oral supplementation in setting of current acute illness and restart at a later date. - Iron level was checked yesterday to determine if supplementation is needed and it is normal at 65. (5) Gastroesophageal reflux disease: Onset Date: Unknown Qualifiers: Esophagitis presence: without esophagitis Qualified Code(s): K21.9 - Gastro-esophageal reflux disease without esophagitis Code(s): K21.9 - Gastro-esophageal reflux disease without esophagitis Status: Chronic Assessment and Plan: - Protonix 40 mg IVP daily. Time Spent With Patient Time with patient: 15 - 25 minutes Subjective Date/time seen: 04/06/22 1000 Interval history: This pt. was examined at the bedside today in interval assessment. She was admitted with SBO and is being monitored S/P NG placement with serial KUB's. She was started on TPN yesterday for nutritive purposes. This morning the pt. reports that she has had interval development of +flatus. She states her pain is starting to improve. She has no new complaints today of CP, dyspnea, V/D/headache, lightheadedness, or dizziness. She does endorse some continued nausea that is intermittently relieved with Zofran. Review of Systems Review of Systems: All systems reviewed & are unremarkable except as noted in HPI and below Exam Const: General: comfortable and no acute distress HENMT: General nose exam: Normal nares present and no epistaxis Mouth: Yes moist mucous membranes Eyes: Sclera: sclerae normal Pupils: Equal, round and reactive pupils present EOM: EOMs intact bilaterally Neck: Neck: supple and no JVD Thyroid: thyroid normal Carotids: no bruits Lymphatic: lymphadenopathy not noted Resp: Effort & Inspection: normal respiratory effort Auscultation: clear to auscultation bilaterally Cardio: Rate: regular rate Rhythm: regular rhythm and regular rhythm Heart sounds: no gallops, no murmurs and no rubs GI: Inspection: non-distended GI Palp: Yes Soft to palpation, Yes Tenderness to palpation present (GI) (RLQ, epigastric) and No Guarding due to palpation present (GI) Other: Increased bowel sounds on the LUQ and LLQ today, decreased on right side. Skin: General skin exam: normal color and no rashes or lesions noted Wounds: no wounds Neuro:
--- NOTE | 2022-04-06 12:13 | PM.PNGS ---
Progress Note: A&P Assessment and Plan (1) SBO (small bowel obstruction): Code(s): K56.609 - Unspecified intestinal obstruction, unspecified as to partial versus complete obstruction Status: Acute Assessment and Plan: Xray today appears to have mostly gas in colon. Possibly signs of improvement Will give Dulcolax suppository today Await further return of bowel function (2) COPD (chronic obstructive pulmonary disease): Code(s): J44.9 - Chronic obstructive pulmonary disease, unspecified Status: Chronic Assessment and Plan: Stable, monitoring. (3) Chronic respiratory failure with hypoxia: Code(s): J96.11 - Chronic respiratory failure with hypoxia Status: Chronic Assessment and Plan: Usually just on oxygen at night. Has not required while in the hospital. (4) B12 deficiency: Code(s): E53.8 - Deficiency of other specified B group vitamins Status: Chronic (5) MARÍA (iron deficiency anemia): Code(s): D50.9 - Iron deficiency anemia, unspecified Status: Chronic (6) Protein-calorie malnutrition, moderate: Code(s): E44.0 - Moderate protein-calorie malnutrition Status: Acute Assessment and Plan: Continue TPN until able to tolerate enteral feeding Subjective Subjective Date/Time Seen: 04/06/22 12:13 Interval history: Passed a little flatus. No BM yet. Still having some abdominal pain. Exam GI: Inspection: other (minimal distention) GI Palp: Yes Soft to palpation, Yes Tenderness to palpation present (GI) (RLQ), No Guarding due to palpation present (GI) and No Rebound tenderness present Auscultation: Hypoactive bowel sounds present Objective Data Vital Signs Vital Signs: Vital Signs - 24 hr 04/05/22 14:00 04/05/22 21:26 04/05/22 20:00 Temperature 36.1 C L 36.5 C Pulse Rate 61 56 L Respiratory Rate 20 14 Blood Pressure 160/79 H 187/73 H Pulse Oximetry 98 97 Oxygen Delivery Room Air Oxygen Flow Rate 04/05/22 23:15 04/06/22 06:00 04/06/22 08:00 Temperature 36.1 C L Pulse Rate 59 L Respiratory Rate 16 Blood Pressure 154/74 H Pulse Oximetry 96 97 98 Oxygen Delivery Nasal Cannula Nasal Cannula Oxygen Flow Rate 2 2 04/06/22 09:53 Temperature Pulse Rate Respiratory Rate Blood Pressure Pulse Oximetry 92 Oxygen Delivery Nasal Cannula Oxygen Flow Rate 2 Intake/Output Intake/Output: Intake & Output 04/03/22 04/04/22 04/05/22 04/06/22 23:59 23:59 23:59 23:59 Intake Total 2200 3120 3000 1250 Output Total 990 1830 2000 Balance 1210 1290 1000 1250 Meds/Results Medications: Active Medications Generic Name Dose Route Start Last Admin Trade Name Freq PRN Reason Stop Dose Admin Bisacodyl 10 mg 04/06/22 12:12 Bisacodyl 10 Mg Suppository RECTAL 04/06/22 12:13 ONCE ONE Dextrose 12.5 gm 04/05/22 07:14 Dextrose 50% 25 Gm/50 Ml Syringe IV PUSH PRN PRN Hypoglycemia Protocol Enoxaparin Sodium 40 mg 04/05/22 09:00 04/06/22 07:59 Enoxaparin 40 Mg/0.4 Ml Syringe SUB-Q 40 mg DAILY ARELI Administration Glucagon 1 mg 04/05/22 07:14 Glucagon For Inj 1 Mg Vial IM PRN PRN Hypoglycemia Protocol Glucose 15 gm 04/05/22 07:14 Glucose Oral Gel 15 Gm Of Glucse In 37.5 Gm Tube PO PRN PRN Hypoglycemia Protocol Hydromorphone HCl 1 mg 04/03/22 10:29 04/06/22 08:03 Hydromorphone Hcl Inj (*Crx) 1 Mg/Ml Syr IV PUSH 1 mg Q3H PRN Administration Pain Rated 10 Sodium Chloride 1,000 mls @ 125 mls/hr 04/03/22 08:30 04/06/22 07:58 Normal Saline Iv IV CONT 125 mls/hr .Q8H ARELI Administration Dextrose 1,000 mls @ 50 mls/hr 04/05/22 14:00 Dextrose 10% IV CONT .Q20H PRN if PN is interrupted Multivitamins 2.5 ml/ 2,005 mls @ 60 mls/hr 04/05/22 14:00 04/05/22 13:00 Multivitamins 2.5 ml/ Amino IV CONT 60 mls/hr Acids/Electrolytes/Dextrose .Q24H ARELI Administration
[2022-04-06] MEDS: BISACODYL 10 MG SUPPOSITORY RECTAL (12:21)
[2022-04-06] MEDS: AMINO ACIDS 5%/D15W/E-LYTES/CA 2,000 ML with MULTIVITAMINS-12 INJ VIAL 1 2.5 ML, MULTIV... 60 ML IV CONT (13:19)
[2022-04-06] MEDS: FAT EMULSIONS IV 20% 250 ML 20.83 ML IVPB (13:20)
[2022-04-06 14:00] VITALS: BP 164/79; PULSE 55; RESP 16; TEMP 36.4; O2SAT 97
[2022-04-06 17:57] LABS: Glucose Point of Care 151 mg/dl (65-105)
[2022-04-06 20:25] VITALS: O2SAT 97
[2022-04-06 20:31] VITALS: BP 167/77; PULSE 71; RESP 22; TEMP 36.9; O2SAT 92
[2022-04-06] MEDS: ONDANSETRON INJ 4 MG/2 ML VIAL IV PUSH (23:15)
[2022-04-07] MEDS: SODIUM CHLORIDE 0.9% IV 1,000 ML 125 ML IV CONT ×3 (00:22→16:33)
[2022-04-07 01:01] LABS: Glucose Point of Care 168 mg/dl (65-105)
[2022-04-07] MEDS: MORPHINE SULFATE (*CRX) 4 MG/ML INJ IV PUSH ×2 (05:46→08:09)
[2022-04-07] MEDS: CENTRAL LINE FLUSH 10 ML IV PUSH ×3 (05:54→22:36)
[2022-04-07 06:00] VITALS: BP 148/75; PULSE 60; RESP 18; TEMP 36.4; O2SAT 96
[2022-04-07 06:11] LABS: Glucose Point of Care 142 mg/dl (65-105)
[2022-04-07 06:50] LABS: Anion Gap 7 mmol/L (8-16); Blood Urea Nitrogen 10 mg/dL (7-17); Calcium 7.9 mg/dL (8.4-10.2); Carbon Dioxide 30 mmol/L (22-30); Chloride 100 mmol/L (98-107); Estimated CRCL calculation 113 ml/min; Estimated Glomerular Filt Rate > 60; Glucose 121 mg/dL (65-110); Potassium 3.1 mmol/L (3.4-5.0); Sodium 137 mmol/L (137-145)
[2022-04-07 08:00] VITALS: PULSE 60; RESP 18; O2SAT 96
[2022-04-07] MEDS: ENOXAPARIN 40 MG/0.4 ML SYRINGE SUB-Q (08:10)
[2022-04-07] MEDS: PANTOPRAZOLE SODIUM IV 40 MG VIAL IV PUSH (08:10)
[2022-04-07] MEDS: POTASSIUM CHLORIDE INJ 40 MEQ in SODIUM CHLORIDE 0.9% IV 500 ML 130 MEQ IVPB (09:24)
--- NOTE | 2022-04-07 10:06 | PC.NURSE ---
c/o roach called provider Kate for tylenol IV order, Kate to call back.
--- NOTE | 2022-04-07 10:09 | PC.NURSE ---
tylenol IV 1000mg q8hrs ordered r/t roach per Kate pt provider.
[2022-04-07 11:38] LABS: Glucose Point of Care 124 mg/dl (65-105)
[2022-04-07 12:08] VITALS: O2SAT 93
[2022-04-07] MEDS: FAT EMULSIONS IV 20% 250 ML 20.83 ML IVPB (13:02)
--- NOTE | 2022-04-07 13:08 | PM.PNGS ---
Progress Note: A&P Assessment and Plan (1) SBO (small bowel obstruction): Code(s): K56.609 - Unspecified intestinal obstruction, unspecified as to partial versus complete obstruction Status: Acute Assessment and Plan: Still not much sign of resolution. Will get Gastrografin SBFT tomorrow. Continue bowel rest, NG decompression. (2) COPD (chronic obstructive pulmonary disease): Code(s): J44.9 - Chronic obstructive pulmonary disease, unspecified Status: Chronic Assessment and Plan: Stable, monitoring. (3) Chronic respiratory failure with hypoxia: Code(s): J96.11 - Chronic respiratory failure with hypoxia Status: Chronic Assessment and Plan: Usually just on oxygen at night. Has not required while in the hospital. (4) B12 deficiency: Code(s): E53.8 - Deficiency of other specified B group vitamins Status: Chronic (5) MARÍA (iron deficiency anemia): Code(s): D50.9 - Iron deficiency anemia, unspecified Status: Chronic (6) Protein-calorie malnutrition, moderate: Code(s): E44.0 - Moderate protein-calorie malnutrition Status: Acute Assessment and Plan: Continue TPN until able to tolerate enteral feeding Subjective Subjective Date/Time Seen: 04/07/22 13:08 Interval history: Passed a little flatus and had very small marble BM per patient. Still feeling bloated. Exam GI: Inspection: distended GI Palp: Yes Soft to palpation and No Guarding due to palpation present (GI) Auscultation: Hypoactive bowel sounds present Objective Data Vital Signs Vital Signs: Vital Signs - 24 hr 04/06/22 14:00 04/06/22 20:25 04/06/22 20:31 Temperature 36.4 C 36.9 C Pulse Rate 55 L 71 Respiratory Rate 16 22 H Blood Pressure 164/79 H 167/77 H Pulse Oximetry 97 97 92 Oxygen Delivery Nasal Cannula Oxygen Flow Rate 2 Fraction of Inspired Oxygen 2 04/07/22 06:00 04/07/22 08:00 04/07/22 12:08 Temperature 36.4 C L Pulse Rate 60 60 Respiratory Rate 18 18 Blood Pressure 148/75 H Pulse Oximetry 96 96 93 Oxygen Delivery Nasal Cannula Nasal Cannula Oxygen Flow Rate 2 2 Fraction of Inspired Oxygen 2 Intake/Output Intake/Output: Intake & Output 04/04/22 04/05/22 04/06/2222 23:59 23:59 23:59 23:59 Intake Total 3120 3000 4255 2350 Output Total 1830 2000 4150 Balance 1290 2409 811 3981 Meds/Results Medications: Active Medications Generic Name Dose Route Start Last Admin Trade Name Freq PRN Reason Stop Dose Admin Dextrose 12.5 gm 04/05/22 07:14 Dextrose 50% 25 Gm/50 Ml Syringe IV PUSH PRN PRN Hypoglycemia Protocol Enoxaparin Sodium 40 mg 04/05/22 09:00 04/07/22 08:10 Enoxaparin 40 Mg/0.4 Ml Syringe SUB-Q 40 mg DAILY ARELI Administration Glucagon 1 mg 04/05/22 07:14 Glucagon For Inj 1 Mg Vial IM PRN PRN Hypoglycemia Protocol Glucose 15 gm 04/05/22 07:14 Glucose Oral Gel 15 Gm Of Glucse In 37.5 Gm Tube PO PRN PRN Hypoglycemia Protocol Hydromorphone HCl 1 mg 04/03/22 10:29 04/06/22 08:03 Hydromorphone Hcl Inj (*Crx) 1 Mg/Ml Syr IV PUSH 1 mg Q3H PRN Administration Pain Rated 10 Sodium Chloride 1,000 mls @ 125 mls/hr 04/03/22 08:30 04/07/22 08:33 Normal Saline Iv IV CONT 125 mls/hr .Q8H ARELI Administration Dextrose 1,000 mls @ 50 mls/hr 04/05/22 14:00 Dextrose 10% IV CONT .Q20H PRN if PN is interrupted Multivitamins 2.5 ml/ 2,005 mls @ 60 mls/hr 04/05/22 14:00 04/06/22 13:19 Multivitamins 2.5 ml/ Amino IV CONT 60 mls/hr Acids/Electrolytes/Dextrose .Q24H ARELI Administration Protocol Fat Emulsion Intravenous 250 mls @ 20.833 mls/hr 04/05/22 14:00 04/07/22 13:02 Lipids 20% IVPB 20.83 mls/hr Q24H ARELI Administration Dextrose 1,000 mls @ 100 mls/hr 04/05/22 07:14 Dextrose 5% 1,000 Ml IVPB PRN PRN Hypoglycemia Protocol Acetaminophen 1,
[2022-04-07 14:00] VITALS: BP 144/82; PULSE 52; RESP 20; TEMP 35.9; O2SAT 95
[2022-04-07] MEDS: AMINO ACIDS 5%/D15W/E-LYTES/CA 2,000 ML with MULTIVITAMINS-12 INJ VIAL 1 2.5 ML, MULTIV... 60 ML IV CONT (14:36)
--- NOTE | 2022-04-07 15:16 | PM.IMPN ---
Progress Note: A&P Assessment and Plan (1) SBO (small bowel obstruction): Code(s): K56.609 - Unspecified intestinal obstruction, unspecified as to partial versus complete obstruction Status: Acute Assessment and Plan: Initially evidenced by CT scan that demonstrates SBO with transition point at the anastomotic site in distal ileum. - Appreciate General Surgery consultation - Imaging today still without signs of resolution with conservative management - Planning for gastrografin small bowel follow through tomorrow - If no resolution with conservative management, pt. may need another Laparotomy. - Maintain NG tube to suction. - NPO diet with TPN through PICC line. - PRN analgesics and anti-emetics. - PPI therapy - Pt. is passing flatus and reports very small bowel movement (2) COPD (chronic obstructive pulmonary disease): Code(s): J44.9 - Chronic obstructive pulmonary disease, unspecified Status: Chronic Assessment and Plan: Not currently in exacerbation. - Monitor respiratory status (3) B12 deficiency: Code(s): E53.8 - Deficiency of other specified B group vitamins Status: Chronic Assessment and Plan: Currently holding oral medications in light of SBO. - Will resume when able to tolerate PO intake (4) MARÍA (iron deficiency anemia): Code(s): D50.9 - Iron deficiency anemia, unspecified Status: Chronic Assessment and Plan: H&H remaining stable. - Will hold oral iron supplementation in setting of current acute illness and restart at a later date. - Iron level is normal at 65. (5) Gastroesophageal reflux disease: Onset Date: Unknown Qualifiers: Esophagitis presence: without esophagitis Qualified Code(s): K21.9 - Gastro-esophageal reflux disease without esophagitis Code(s): K21.9 - Gastro-esophageal reflux disease without esophagitis Status: Chronic Assessment and Plan: No acute issues - Protonix 40 mg IVP daily. (6) Hypokalemia: Code(s): E87.6 - Hypokalemia Status: Acute Assessment and Plan: Potassium is 3.1 today - 40 mEq PO KCl - If persistent, will discuss with nurse wound adjusting TPN to increase potassium (7) Obstructive sleep apnea: Code(s): G47.33 - Obstructive sleep apnea (adult) (pediatric) Status: Acute Assessment and Plan: Maintained on CPAP -not able to use CPAP with NG tube in place -continue supplemental oxygen 2 L at night Subjective Date/time seen: 04/07/22 15:16 Interval history: Date of service: 04/07/22 Rebecca Ricci is a 61 year old female with a history of COPD, chronic respiratory failure on home oxygen, anemia, GERD, hypothyroidism, LEVY, and multiple prior small 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 She is feeling tired today. States she is passing flatus but has not had a bowel movement. She states she is always nauseous but this does improved with antiemetics. She has abdominal pain that she describes as ?labor pain.? States her abdomen will tighten until she has a very severe cramping. This happens intermittently a couple of times a day. Today she rates this pain as 5-6/10 and notes overall improvement. She denies fevers or chills. Denies shortness of breath, cough, chest pain, wheezing. She is able to get up and ambulate to the bedside commode. She feels steady on her feet and denies dizziness or lightheadedness. Denies urinary symptoms. Review of Systems Review of Systems: All systems reviewed & are unremarkable except as noted in HPI and below Exam Narrative: General: Well-nourished, well-appearing 61-year-old female, sitting up in bed, comfortable, NARD Neuro: awake, alert and oriented x4, speech clear, no focal neuro deficits noted HEENMT: norm
[2022-04-07 17:50] LABS: Glucose Point of Care 104 mg/dl (65-105)
[2022-04-07 22:00] VITALS: BP 167/92; PULSE 55; RESP 16; TEMP 36.3; O2SAT 98
[2022-04-07 22:30] VITALS: O2SAT 95
[2022-04-07 23:53] LABS: Glucose Point of Care 139 mg/dl (65-105)
[2022-04-07] MEDS: HYDROmorphone HCL INJ (*CRX) 1 MG/ML SYR IV PUSH (23:53)
[2022-04-08] MEDS: SODIUM CHLORIDE 0.9% IV 1,000 ML 125 ML IV CONT ×2 (00:46→10:43)
[2022-04-08 05:31] LABS: Basophils Percent Auto 0.4 % (0.2-1.2); Eosinophils Absolute Auto 0.1 K/mm3 (0-0.3); Eosinophils Percent Auto 1.4 % (0-4.4); Hemoglobin 11.3 g/dL (12.0-15.0); Immature Granulocyte Absolute 0.16 K/mm3 (0.00-0.031); Immature Granulocyte Percent A 1.9 % (0-0.5); Lymphocytes Absolute Auto 2.32 K/mm3 (0.9-3.2); Lymphocytes Percent Auto 27.9 % (18.3-44.2); Mean Corpuscular HGB Conc 32.3 g/dl (32-36); Mean Corpuscular Hemoglobin 30.4 pg (26-34); Mean Corpuscular Volume 94.1 fl (80-100); Mean Platelet Volume 10.5 fl (7.4-10.4); Monocytes Absolute Auto 0.6 K/mm3 (0.1-0.6); Monocytes Percent Auto 7.5 % (2.6-8.5); Neutrophils Absolute Auto 5.1 K/mm3 (1.3-6.7); Neutrophils Percent Auto 60.9 % (45.5-73.1); Platelet Count Result 226 k/mm3 (150-375); Red Blood Count 3.72 M/mm3 (4.2-5.4); Red Cell Distribution Width 16.1 % (11.5-14.5); White Blood Count 8.3 K/mm3 (4.5-10.0)
[2022-04-08 05:41] LABS: Alanine Aminotransferase 110 U/L (6-35); Albumin Level 3.1 g/dL (3.5-5.1); Alkaline Phosphatase 114 U/L (38-126); Anion Gap 5 mmol/L (8-16); Aspartate Amino Transferase 40 U/L (14-36); Bilirubin,Total 0.3 mg/dL (0.2-1.3); Blood Urea Nitrogen 9 mg/dL (7-17); Calcium 8.2 mg/dL (8.4-10.2); Carbon Dioxide 29 mmol/L (22-30); Chloride 103 mmol/L (98-107); Estimated CRCL calculation 113 ml/min; Estimated Glomerular Filt Rate > 60; Glucose 122 mg/dL (65-110); Magnesium 1.9 mg/dL (1.6-2.3); Phosphorus 3.8 mg/dL (2.5-4.5); Potassium 3.2 mmol/L (3.4-5.0); Sodium 137 mmol/L (137-145)
[2022-04-08 05:42] LABS: INR 1.1; Prothrombin Time 13.8 Seconds (11.1-14.7)
[2022-04-08 05:43] LABS: Partial Thromboplastin Time 31.7 SECONDS (22.3-36.8)
[2022-04-08 05:48] LABS: Transferrin 167 mg/dL (206-381)
[2022-04-08 06:00] VITALS: BP 153/71; PULSE 60; RESP 20; TEMP 36.6; O2SAT 94
[2022-04-08 07:02] LABS: Glucose Point of Care 130 mg/dl (65-105)
[2022-04-08 07:21] LABS: Triglycerides 97 mg/dL (<150)
[2022-04-08 08:00] VITALS: O2SAT 100
--- NOTE | 2022-04-08 08:19 | PM.PNGS ---
Progress Note: A&P Assessment and Plan (1) SBO (small bowel obstruction): Code(s): K56.609 - Unspecified intestinal obstruction, unspecified as to partial versus complete obstruction Status: Acute Assessment and Plan: Much improved. Abdominal pain and cramping have gone. She is having bowel movements in fact complains of diarrhea. We will go ahead with Gastrografin small bowel series today. Hopefully this will go through with normal transit and weak and DC the NG tube, start oral feedings. (2) Protein-calorie malnutrition, moderate: Code(s): E44.0 - Moderate protein-calorie malnutrition Status: Acute Assessment and Plan: Continue TPN for malnutrition. (3) COPD (chronic obstructive pulmonary disease): Code(s): J44.9 - Chronic obstructive pulmonary disease, unspecified Status: Chronic Assessment and Plan: Stable (4) Obstructive sleep apnea: Code(s): G47.33 - Obstructive sleep apnea (adult) (pediatric) Status: Chronic Subjective Subjective Date/Time Seen: 04/08/22 08:19 Patient reports: feels better, pain is less ( Abdominal pain is essentially gone.), diarrhea ( Now having multiple loose bowel movements.) and afebrile Review of Systems Review of Systems: All systems reviewed & are unremarkable except as noted in HPI and below ( HPI and those items noted below) Constitutional: Constitutional: Denies chills and Denies fever(s) Cardiovascular: Cardiovascular: Denies chest pain, Denies diaphoresis, Denies dyspnea and Denies paroxysmal nocturnal dyspnea Respiratory: Respiratory: Denies chest congestion, Denies cough and Denies dyspnea Gastrointestinal: Gastrointestinal: Denies abdominal pain, Denies GI cramping, Denies heartburn and Reports diarrhea Integumentary/Breasts: Skin/Breast: Denies lesions and Denies rash Exam Const: General: comfortable and no acute distress; No confusion GI: Inspection: non-distended and scar GI Palp: Yes Soft to palpation, No Tenderness to palpation present (GI), No Guarding due to palpation present (GI), No Hepatosplenomegaly present and No Rebound tenderness present Auscultation: Hypoactive bowel sounds present Neuro: General: patient oriented x3, no focal motor deficits and No confusion Extrem: General: no calf tenderness and no edema Psych: Affect: normal affect Insight: Good insight present (Psych) Judgement: Good judgement present (Psych) Objective Data Vital Signs Vital Signs: Vital Signs - 24 hr 04/07/22 12:08 04/07/22 14:00 04/07/22 22:00 Temperature 35.9 C L 36.3 C L Pulse Rate 52 L 55 L Respiratory Rate 20 16 Blood Pressure 144/82 H 167/92 H Pulse Oximetry 93 95 98 Oxygen Delivery Nasal Cannula Oxygen Flow Rate 2 04/07/22 22:30 04/08/22 06:00 Temperature 36.6 C Pulse Rate 60 Respiratory Rate 20 Blood Pressure 153/71 H Pulse Oximetry 95 94 Oxygen Delivery Nasal Cannula Oxygen Flow Rate 2 Intake/Output Intake/Output: Intake & Output 04/05/22 04/06/22 04/07/22 04/08/22 23:59 23:59 23:59 23:59 Intake Total 3000 4255 5975 1000 Output Total 1999 4150 7400 575 Balance 1000 105 1425 425 Meds/Results Medications: Active Medications Generic Name Dose Route Start Last Admin Trade Name Freq PRN Reason Stop Dose Admin Dextrose 12.5 gm 04/05/22 07:14 Dextrose 50% 25 Gm/50 Ml Syringe IV PUSH PRN PRN Hypoglycemia Protocol Enoxaparin Sodium 40 mg 04/05/22 09:00 04/07/22 08:10 Enoxaparin 40 Mg/0.4 Ml Syringe SUB-Q 40 mg DAILY ARELI Administration Glucagon 1 mg 04/05/22 07:14 Glucagon For Inj 1 Mg Vial IM PRN PRN Hypoglycemia Protocol Glucose 15 gm 04/05/22 07:14 Glucose Oral Gel 15 Gm Of Glucse In 37.5 Gm Tube PO PRN PRN Hypoglycemia Protocol Hydromorphone HCl 1 mg 04/03/22 10:29 04/07/22 23:53 Hydromorphone Hcl Inj (*Crx) 1 Mg/Ml Syr IV PUSH 1 mg Q3H PRN Administra
[2022-04-08] MEDS: CENTRAL LINE FLUSH 10 ML IV PUSH ×3 (10:43→22:12)
[2022-04-08] MEDS: ENOXAPARIN 40 MG/0.4 ML SYRINGE SUB-Q (10:44)
[2022-04-08] MEDS: PANTOPRAZOLE SODIUM IV 40 MG VIAL IV PUSH (10:44)
[2022-04-08] MEDS: POTASSIUM CHLORIDE INJ 40 MEQ in SODIUM CHLORIDE 0.9% IV 500 ML 130 MEQ IVPB (10:44)
[2022-04-08 12:22] LABS: Glucose Point of Care 106 mg/dl (65-105)
--- NOTE | 2022-04-08 13:49 | PM.IMPN ---
Progress Note: A&P Assessment and Plan (1) SBO (small bowel obstruction): Code(s): K56.609 - Unspecified intestinal obstruction, unspecified as to partial versus complete obstruction Status: Acute Assessment and Plan: Initially evidenced by CT scan that demonstrates SBO with transition point at the anastomotic site in distal ileum. - Appreciate General Surgery consultation - SBFT today showed transit time from the stomach to proximal colon of 30 minutes. - NG has been discontinued - Advanced to full liquid diet. Continue to advance diet as tolerated per general surgery recommendations - PRN analgesics and anti-emetics. - PPI therapy (2) COPD (chronic obstructive pulmonary disease): Code(s): J44.9 - Chronic obstructive pulmonary disease, unspecified Status: Chronic Assessment and Plan: Not currently in exacerbation. - Monitor respiratory status (3) B12 deficiency: Code(s): E53.8 - Deficiency of other specified B group vitamins Status: Chronic Assessment and Plan: Currently holding oral medications in light of SBO. - Will resume when able to tolerate PO intake (4) MARÍA (iron deficiency anemia): Code(s): D50.9 - Iron deficiency anemia, unspecified Status: Chronic Assessment and Plan: H&H remaining stable. - oral iron supplementation on hold in setting of current acute illness and restart at a later date. - Iron level is normal at 65. (5) Gastroesophageal reflux disease: Onset Date: Unknown Qualifiers: Esophagitis presence: without esophagitis Qualified Code(s): K21.9 - Gastro-esophageal reflux disease without esophagitis Code(s): K21.9 - Gastro-esophageal reflux disease without esophagitis Status: Chronic Assessment and Plan: No acute issues - Protonix 40 mg IVP daily. (6) Hypokalemia: Code(s): E87.6 - Hypokalemia Status: Acute Assessment and Plan: Potassium is 3.2 today - 40 mEq PO KCl - Anticipate this to improve as diet is advanced (7) Obstructive sleep apnea: Code(s): G47.33 - Obstructive sleep apnea (adult) (pediatric) Status: Chronic Assessment and Plan: Maintained on CPAP -resume CPAP titrated to home settings. Previously not able to use with NG in place. 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 She is feeling better today. She has been tolerating ice chips. She has some mild discomfort of her abdomen that she rates as 2/10. She endorses some nausea but no episodes of emesis. She has been passing flatus. She has been having loose stools since her small-bowel follow-through this morning. She feels weak. She is able to get up and ambulate to the bathroom. She has a mild headache today. Review of Systems Review of Systems: All systems reviewed & are unremarkable except as noted in HPI and below Exam Narrative: General: Well-nourished, well-appearing 61-year-old female, sitting up in bed, comfortable, NARD Neuro: awake, alert and oriented x4, speech clear, no focal neuro deficits noted HEENMT: normocephalic, atraumatic, EOMI, sclerae anicteric Respiratory: clear to auscultation anteriorly, nonlabored breathing Cardio: regular rate, regular rhythm with S1-S2 Abdomen: nondistended, normoactive bowel sounds, soft, nontender to palpation Extremities: no edema, erythema, or tenderness to palpation, DP pulses 2+ bilaterally Skin: Multiple abdominal scars from prior surgical incisions
[2022-04-08 14:00] VITALS: BP 169/79; PULSE 66; RESP 18; TEMP 36.4; O2SAT 95
[2022-04-08 14:51] VITALS: O2SAT 93
[2022-04-08] MEDS: FAT EMULSIONS IV 20% 250 ML 20.83 ML IVPB (15:06)
[2022-04-08] MEDS: POTASSIUM CHLORIDE 20 MEQ TABLET 40 MEQ PO (15:07)
[2022-04-08] MEDS: AMINO ACIDS 5%/D15W/E-LYTES/CA 2,000 ML with MULTIVITAMINS-12 INJ VIAL 1 2.5 ML, MULTIV... 60 ML IV CONT (16:20)
[2022-04-08 18:45] LABS: Glucose Point of Care 145 mg/dl (65-105)
[2022-04-08] MEDS: MORPHINE SULFATE (*CRX) 4 MG/ML INJ 2 MG IV PUSH (21:14)
[2022-04-08 21:37] VITALS: BP 153/63; PULSE 63; RESP 14; TEMP 36.3; O2SAT 96
[2022-04-08 21:45] VITALS: O2SAT 94
[2022-04-09 00:15] LABS: Glucose Point of Care 148 mg/dl (65-105)
[2022-04-09 05:32] VITALS: BP 149/73; PULSE 65; RESP 14; TEMP 36.3; O2SAT 97
[2022-04-09 06:00] LABS: Hematocrit 39.3 % (37.0-47.0); Hemoglobin 12.2 g/dL (12.0-15.0); Mean Corpuscular Hemoglobin 30.3 pg (26-34); Mean Corpuscular Volume 97.5 fl (80-100); Mean Platelet Volume 11.1 fl (7.4-10.4); Platelet Count Result 299 k/mm3 (150-375); Red Blood Count 4.03 M/mm3 (4.2-5.4); Red Cell Distribution Width 17.2 % (11.5-14.5); White Blood Count 10.6 K/mm3 (4.5-10.0)
[2022-04-09 06:07] LABS: Glucose Point of Care 121 mg/dl (65-105)
[2022-04-09] MEDS: CENTRAL LINE FLUSH 10 ML IV PUSH ×3 (06:17→21:07)
[2022-04-09 08:00] VITALS: O2SAT 94
--- NOTE | 2022-04-09 08:50 | PM.PNGS ---
Progress Note: A&P Assessment and Plan (1) SBO (small bowel obstruction): Code(s): K56.609 - Unspecified intestinal obstruction, unspecified as to partial versus complete obstruction Status: Acute Assessment and Plan: upper GI small-bowel follow-through showed transit time of 30 minutes. Patient had multiple bowel movements following the study. She has tolerated liquids quite well. We will advance her to low-fiber diet. Stop TPN today. If continues to do well, could go home tomorrow. Do not plan on any surgery. (2) Protein-calorie malnutrition, moderate: Code(s): E44.0 - Moderate protein-calorie malnutrition Status: Acute Assessment and Plan: Patient eating well now. Will discontinue TPN. Subjective Subjective Date/Time Seen: 04/09/22 08:50 Patient reports: no new complaints, feels better, pain is less, tolerating liquids well, bowel movement and afebrile Review of Systems Review of Systems: All systems reviewed & are unremarkable except as noted in HPI and below (HPI and those items noted below) Constitutional: Constitutional: Denies chills and Denies fever(s) Cardiovascular: Cardiovascular: Denies chest pain, Denies diaphoresis, Denies dyspnea and Denies paroxysmal nocturnal dyspnea Respiratory: Respiratory: Denies chest congestion, Denies cough and Denies dyspnea Integumentary/Breasts: Skin/Breast: Denies lesions and Denies rash Exam Const: General: comfortable and no acute distress; No confusion Orientation/consciousness: patient oriented x3 and No confusion GI: GI Palp: Yes Soft to palpation, No Guarding due to palpation present (GI) and No Rebound tenderness present Auscultation: normal bowel sounds Neuro: General: patient oriented x3, no focal motor deficits and No confusion Extrem: General: no calf tenderness and no edema Psych: Affect: normal affect Insight: Good insight present (Psych) Judgement: Good judgement present (Psych) Objective Data Vital Signs Vital Signs: Vital Signs - 24 hr 04/08/22 14:00 04/08/22 14:51 04/08/22 21:37 Temperature 36.4 C L 36.3 C L Pulse Rate 66 63 Respiratory Rate 18 14 Blood Pressure 169/79 H 153/63 H Pulse Oximetry 95 93 96 Oxygen Delivery Nasal Cannula Oxygen Flow Rate 3 04/08/22 21:45 04/09/22 05:32 Temperature 36.3 C L Pulse Rate 65 Respiratory Rate 14 Blood Pressure 149/73 H Pulse Oximetry 94 97 Oxygen Delivery Nasal Cannula Oxygen Flow Rate 3 Intake/Output Intake/Output: Intake & Output 04/06/22 04/07/22 04/08/22 04/09/22 23:59 23:59 23:59 23:59 Intake Total 4255 5975 6655 250 Output Total 4150 7400 1775 Balance 105 -1425 4880 250 Meds/Results Medications: Active Medications Generic Name Dose Route Start Last Admin Trade Name Freq PRN Reason Stop Dose Admin Acetaminophen 650 mg 04/08/22 13:56 Acetaminophen 325 Mg Tablet PO Q4H PRN Pain 1-3 Dextrose 12.5 gm 04/05/22 07:14 Dextrose 50% 25 Gm/50 Ml Syringe IV PUSH PRN PRN Hypoglycemia Protocol Enoxaparin Sodium 40 mg 04/05/22 09:00 04/08/22 10:44 Enoxaparin 40 Mg/0.4 Ml Syringe SUB-Q 40 mg DAILY ARELI Administration Glucagon 1 mg 04/05/22 07:14 Glucagon For Inj 1 Mg Vial IM PRN PRN Hypoglycemia Protocol Glucose 15 gm 04/05/22 07:14 Glucose Oral Gel 15 Gm Of Glucse In 37.5 Gm Tube PO PRN PRN Hypoglycemia Protocol Dextrose 1,000 mls @ 50 mls/hr 04/05/22 14:00 Dextrose 10% IV CONT .Q20H PRN if PN is interrupted Dextrose 1,000 mls @ 100 mls/hr 04/05/22 07:14 Dextrose 5% 1,000 Ml IVPB PRN PRN Hypoglycemia Protocol Insulin Human Regular 2 - 5 units 04/05/22 12:00 04/09/22 06:12 Insulin Human Regular (*Bkc) 100 Units/Ml SUB-Q Not Given Q6HR [facility] Protocol Morphine Sulfate 4 mg 04/03/22 10:43 04/07/22 08:09 Morphine Sulfate (*Crx) 4 Mg/Ml Inj IV PUSH 4 mg Q2H PRN Ad
[2022-04-09] MEDS: PANTOPRAZOLE 40 MG TABLET PO (08:52)
[2022-04-09 08:59] LABS: Anion Gap 10 mmol/L (8-16); Blood Urea Nitrogen 14 mg/dL (7-17); Calcium 8.7 mg/dL (8.4-10.2); Carbon Dioxide 25 mmol/L (22-30); Chloride 103 mmol/L (98-107); Estimated CRCL calculation 93 ml/min; Estimated Glomerular Filt Rate > 60; Glucose 138 mg/dL (65-110); Phosphorus 4.6 mg/dL (2.5-4.5); Potassium 3.9 mmol/L (3.4-5.0); Sodium 138 mmol/L (137-145)
[2022-04-09 09:01] VITALS: PULSE 69; O2SAT 95
--- NOTE | 2022-04-09 10:20 | PCNFU ---
Nutrition Follow-Up Complete: Inadequate po intake related to altered GI function as evidenced by need for NPO status d/t SBO with TPN for nutrition support. Goal:Meet estimated needs - progressing toward goal. Diet advanced 04/08/22. Pt current nutrition is Low fiber diet. TPN was discontinued this morning 04/09/22. Pt ate cream of wheat and drank some milk. Nutrition recommendation: Ensure Clear apple with meals. Last recorded weight is 82.7 kg. Bowel Motility: Multiple BMs after having barium enema Labs Reviewed: Creat 0.5, PO4 4.6 Meds Noted: Lovenox, protonix, Zofran, insulin Skin: WNL Additional Notes: Prefers apple clear Ensure over Enlive. Intakes encouraged. Monitor intakes, labs, weights. FU in 3 days.
--- NOTE | 2022-04-09 12:06 | PM.IMPN ---
Progress Note: A&P Assessment and Plan (1) SBO (small bowel obstruction): Code(s): K56.609 - Unspecified intestinal obstruction, unspecified as to partial versus complete obstruction Status: Acute Assessment and Plan: Initially evidenced by CT scan that demonstrates SBO with transition point at the anastomotic site in distal ileum. - Appreciate General Surgery consultation - SBFT today showed transit time from the stomach to proximal colon of 30 minutes. - NG has been discontinued - Advanced to full liquid diet. Continue to advance diet as tolerated per general surgery recommendations - PRN analgesics and anti-emetics. - PPI therapy (2) COPD (chronic obstructive pulmonary disease): Code(s): J44.9 - Chronic obstructive pulmonary disease, unspecified Status: Chronic Assessment and Plan: Not currently in exacerbation. - Monitor respiratory status (3) B12 deficiency: Code(s): E53.8 - Deficiency of other specified B group vitamins Status: Chronic Assessment and Plan: Currently holding oral medications in light of SBO. - Will resume when able to tolerate PO intake (4) MARÍA (iron deficiency anemia): Code(s): D50.9 - Iron deficiency anemia, unspecified Status: Chronic Assessment and Plan: H&H remaining stable. - oral iron supplementation on hold in setting of current acute illness and restart at a later date. - Iron level is normal at 65. (5) Gastroesophageal reflux disease: Onset Date: Unknown Qualifiers: Esophagitis presence: without esophagitis Qualified Code(s): K21.9 - Gastro-esophageal reflux disease without esophagitis Code(s): K21.9 - Gastro-esophageal reflux disease without esophagitis Status: Chronic Assessment and Plan: No acute issues - Protonix 40 mg IVP daily. (6) Hypokalemia: Code(s): E87.6 - Hypokalemia Status: Acute Assessment and Plan: Potassium is 3.2 today - 40 mEq PO KCl - Anticipate this to improve as diet is advanced (7) Obstructive sleep apnea: Code(s): G47.33 - Obstructive sleep apnea (adult) (pediatric) Status: Chronic Assessment and Plan: Maintained on CPAP -resume CPAP titrated to home settings. Previously not able to use with NG in place. -continue supplemental oxygen 2 L at night Time Spent With Patient Time with patient: 15 - 25 minutes Subjective Date/time seen: 04/09/22 1045 This pt. was examined at the bedside today in interval assessment. She continues to improve over her admission presentation. She has no further abdominal pain, she is having stools and passing flatus and she has been able to tolerate oral intake thus far. She is being managed by surgery and they have advanced to low fiber diet for this evening. She denies any other symptoms of CP, dyspnea, N/V/D/Headache, dizziness or lightheadedness. Review of Systems Review of Systems: All systems reviewed & are unremarkable except as noted in HPI and below Exam Const: General: comfortable and no acute distress HENMT: General nose exam: Normal nares present and no epistaxis Mouth: Yes moist mucous membranes Eyes: General: appearance normal, both eyes and all related structures Sclera: sclerae normal Pupils: Equal, round and reactive pupils present EOM: EOMs intact bilaterally Neck: Neck: supple and no JVD Resp: Effort & Inspection: normal respiratory effort Auscultation: clear to auscultation bilaterally Cardio: Rate: regular rate Rhythm: regular rhythm Heart sounds: no gallops, no murmurs and no rubs GI: Inspection: non-distended GI Palp: Yes Soft to palpation and Yes Tenderness to palpation present (GI) Auscultation: normal bowel sounds Skin: General skin exam: normal color and no rashes or lesions noted Wounds: no wounds Neuro: General: gait normal Speech: normal speech Motor exam (neuro): 5/5 motor strength present throughout
[2022-04-09 14:00] VITALS: BP 144/61; PULSE 63; RESP 18; TEMP 35.8; O2SAT 99
[2022-04-09] MEDS: CALCIUM CARBONATE (TUMS) 500 MG (200 MG ELEMENTAL) PO (15:21)
[2022-04-09] MEDS: ACETAMINOPHEN 325 MG TABLET 650 MG PO (21:07)
[2022-04-09 21:30] VITALS: O2SAT 96
[2022-04-09 22:00] VITALS: BP 113/52; PULSE 84; RESP 18; TEMP 36.9; O2SAT 96
[2022-04-10] MEDS: CENTRAL LINE FLUSH 10 ML IV PUSH (05:27)
[2022-04-10] MEDS: CENTRAL LINE FLUSH 20 ML IV PUSH (05:27)
[2022-04-10 05:38] LABS: Basophils Absolute Auto 0.1 K/mm3 (0.0-0.1); Basophils Percent Auto 0.5 % (0.2-1.2); Eosinophils Absolute Auto 0.2 K/mm3 (0-0.3); Eosinophils Percent Auto 1.7 % (0-4.4); Hematocrit 36.7 % (37.0-47.0); Hemoglobin 11.9 g/dL (12.0-15.0); Immature Granulocyte Percent A 4.3 % (0-0.5); Lymphocytes Percent Auto 24.6 % (18.3-44.2); Mean Corpuscular HGB Conc 32.4 g/dl (32-36); Mean Corpuscular Hemoglobin 30.5 pg (26-34); Mean Corpuscular Volume 94.1 fl (80-100); Mean Platelet Volume 10.3 fl (7.4-10.4); Monocytes Absolute Auto 0.7 K/mm3 (0.1-0.6); Monocytes Percent Auto 7.6 % (2.6-8.5); Neutrophils Absolute Auto 5.7 K/mm3 (1.3-6.7); Neutrophils Percent Auto 61.3 % (45.5-73.1); Platelet Count Result 284 k/mm3 (150-375); Red Cell Distribution Width 16.8 % (11.5-14.5); White Blood Count 9.3 K/mm3 (4.5-10.0)
[2022-04-10 05:51] LABS: Alanine Aminotransferase 60 U/L (6-35); Albumin Level 3.2 g/dL (3.5-5.1); Alkaline Phosphatase 104 U/L (38-126); Anion Gap 8 mmol/L (8-16); Aspartate Amino Transferase 28 U/L (14-36); Bilirubin,Total 0.2 mg/dL (0.2-1.3); Blood Urea Nitrogen 15 mg/dL (7-17); Calcium 8.4 mg/dL (8.4-10.2); Carbon Dioxide 27 mmol/L (22-30); Chloride 103 mmol/L (98-107); Estimated CRCL calculation 96 ml/min; Estimated Glomerular Filt Rate > 60; Glucose 109 mg/dL (65-110); Magnesium 1.7 mg/dL (1.6-2.3); Potassium 3.5 mmol/L (3.4-5.0); Sodium 138 mmol/L (137-145)
[2022-04-10 06:00] VITALS: BP 151/78; PULSE 67; RESP 16; TEMP 36.3; O2SAT 97
[2022-04-10] MEDS: PANTOPRAZOLE 40 MG TABLET PO (08:47)
--- NOTE | 2022-04-10 09:46 | PM.DS ---
DS: Admitting Diagnosis Discharge Date 04/10/2022 Admitting Diagnosis Small Bowel Obstruction, recurrent DS: Discharge Diagnosis Discharge Diagnosis (1) SBO (small bowel obstruction): Code(s): K56.609 - Unspecified intestinal obstruction, unspecified as to partial versus complete obstruction Status: Acute Assessment and Plan: Initially evidenced by CT scan that demonstrates SBO with transition point at the anastomotic site in distal ileum. -patient was co-managed by General surgery. Decompression of the stomach was allowed with placement of NG tube. Serial KUBs were ordered showed eventual resolution of small-bowel obstruction. - SBFT today showed transit time from the stomach to proximal colon of 30 minutes. - NG has been discontinued -patient was given a low-fiber diet to started last evening and she has tolerated it without complaints of increased abdominal pain, nausea and or vomiting. -suspect trauma surgery will clear for discharge today with follow-up in the outpatient setting (2) COPD (chronic obstructive pulmonary disease): Code(s): J44.9 - Chronic obstructive pulmonary disease, unspecified Status: Chronic Assessment and Plan: Not currently in exacerbation. - Monitor respiratory status (3) B12 deficiency: Code(s): E53.8 - Deficiency of other specified B group vitamins Status: Chronic Assessment and Plan: Currently holding oral medications in light of SBO. -resume home medications (4) MARÍA (iron deficiency anemia): Code(s): D50.9 - Iron deficiency anemia, unspecified Status: Chronic Assessment and Plan: H&H remaining stable. -patient is stable to resume home medications (5) Gastroesophageal reflux disease: Onset Date: Unknown Qualifiers: Esophagitis presence: without esophagitis Qualified Code(s): K21.9 - Gastro-esophageal reflux disease without esophagitis Code(s): K21.9 - Gastro-esophageal reflux disease without esophagitis Status: Chronic Assessment and Plan: No acute issues -continue PPI (6) Hypokalemia: Code(s): E87.6 - Hypokalemia Status: Resolved Assessment and Plan: Potassium is 3.2 today -potassium is stable and normal at 3.5 on date of discharge. (7) Obstructive sleep apnea: Code(s): G47.33 - Obstructive sleep apnea (adult) (pediatric) Status: Chronic Assessment and Plan: Maintained on CPAP -resume CPAP titrated to home settings. Previously not able to use with NG in place. -continue supplemental oxygen 2 L at night DS: Summary Hospital Course Reason for hospitalization: Abdominal pain with small-bowel obstruction that is recurrent Hospital Course: 61-year-old female patient with significant past medical history of anemia, COPD, chronic back pain, depression, hyperlipidemia, GERD, obstructive sleep apnea, peripheral neuropathy, RLS, vitamin-D deficiency and most pertinent, multiple small-bowel obstructions related to adhesions with history of bowel resection, ostomy placement and takedown and in 2019 resection of 36 cm of small bowel with extensive adhesiolysis with ileal to ileal anastomosis, presented to the emergency room on 04/03/2022 with complaints of having severe abdominal pain starting the night before. Workup performed in the ER demonstrated a small-bowel obstruction at the site of the anastomosis. Patient was admitted to the hospital with general surgery consult and treatment was started with decompression of the stomach with NG tube placement and pain control. Throughout her hospitalization patient had serial KUBs to monitor for resolution of her small-bowel obstruction. In addition she was started on TPN and when she received a couple days course of nutrition. She had pain control as well as emesis control. Her outcome has been favorable as her small bowel obstruction resolved on its own without any surgical interven
[2022-04-10] MEDS: NEOMYCIN/POLYMYXIN/BACITRACIN OINTMENT PACKET 1 PACKET (11:01)
--- NOTE | 2022-04-10 11:42 | PM.PNGS ---
Progress Note: A&P Assessment and Plan (1) SBO (small bowel obstruction): Code(s): K56.609 - Unspecified intestinal obstruction, unspecified as to partial versus complete obstruction Status: Acute Assessment and Plan: Continues to improve. Tolerating a low-fiber diet. Okay to discharge home on a regular diet from a surgical standpoint. No follow-up with surgery needed. (2) Protein-calorie malnutrition, moderate: Code(s): E44.0 - Moderate protein-calorie malnutrition Status: Acute Plan I have discussed the patient's case and plan of care with Dr. Villarreal. Subjective Subjective Date/Time Seen: 04/10/22 11:42 Patient reports: no new complaints, feels better, tolerating a regular diet, voiding w/o difficulty, flatus and bowel movement Interval history: Patient seen and examined. She continues to improve daily. Bowels are moving. Tolerating a low-fiber diet. No other complaints at this time. Review of Systems Review of Systems: All systems reviewed & are unremarkable except as noted in HPI and below Exam Const: General: comfortable and no acute distress Orientation/consciousness: patient oriented x3 GI: Inspection: non-distended GI Palp: Yes Soft to palpation, No Tenderness to palpation present (GI), No Guarding due to palpation present (GI) and No Rebound tenderness present Auscultation: normal bowel sounds Extrem: General: normal to inspection Psych: Insight: Good insight present (Psych) Objective Data Vital Signs Vital Signs: Vital Signs - 24 hr 04/09/22 14:00 04/09/22 20:00 04/09/22 22:00 Temperature 96.4 F L 98.4 F Pulse Rate 63 84 Respiratory Rate 18 18 Blood Pressure 144/61 H 113/52 L Pulse Oximetry 99 96 Oxygen Delivery Room Air 04/09/22 21:30 04/10/22 06:00 Temperature 97.4 F L Pulse Rate 67 Respiratory Rate 16 Blood Pressure 151/78 H Pulse Oximetry 96 97 Oxygen Delivery Room Air Intake/Output Intake/Output: Intake & Output 04/07/22 04/08/22 04/09/22 04/10/22 23:59 23:59 23:59 23:59 Intake Total 5975 6655 2802 950 Output Total 7400 1775 1600 Balance -1425 4880 2802 -650 Meds/Results Medications: Active Medications Generic Name Dose Route Start Last Admin Trade Name Freq PRN Reason Stop Dose Admin Acetaminophen 650 mg 04/08/22 13:56 04/09/22 21:07 Acetaminophen 325 Mg Tablet PO 650 mg Q4H PRN Administration Pain 1-3 Calcium Carbonate 200 mg 04/09/22 14:21 04/09/22 15:21 Calcium Carbonate (Tums) 500 Mg (200 Mg Elemental) PO 200 mg Q6H PRN Administration Indigestion Dextrose 12.5 gm 04/05/22 07:14 Dextrose 50% 25 Gm/50 Ml Syringe IV PUSH PRN PRN Hypoglycemia Protocol Enoxaparin Sodium 40 mg 04/05/22 09:00 04/10/22 08:47 Enoxaparin 40 Mg/0.4 Ml Syringe SUB-Q Not Given DAILY ARELI Glucagon 1 mg 04/05/22 07:14 Glucagon For Inj 1 Mg Vial IM PRN PRN Hypoglycemia Protocol Glucose 15 gm 04/05/22 07:14 Glucose Oral Gel 15 Gm Of Glucse In 37.5 Gm Tube PO PRN PRN Hypoglycemia Protocol Dextrose 1,000 mls @ 50 mls/hr 04/05/22 14:00 Dextrose 10% IV CONT .Q20H PRN if PN is interrupted Dextrose 1,000 mls @ 100 mls/hr 04/05/22 07:14 Dextrose 5% 1,000 Ml IVPB PRN PRN Hypoglycemia Protocol Morphine Sulfate 4 mg 04/03/22 10:43 04/07/22 08:09 Morphine Sulfate (*Crx) 4 Mg/Ml Inj IV PUSH 4 mg Q2H PRN Administration Pain Rated 7-9 Morphine Sulfate 2 mg 04/03/22 10:43 04/08/22 21:14 Morphine Sulfate (*Crx) 4 Mg/Ml Inj IV PUSH 2 mg Q2H PRN Administration Pain Rated 4-6 Ondansetron HCl 4 mg 04/03/22 10:27 04/06/22 23:15 Ondansetron Inj 4 Mg/2 Ml Vial IV PUSH 4 mg Q4H PRN Administration Nausea Pantoprazole Sodium 40 mg 04/09/22 09:00 04/10/22 08:47 Pantoprazole 40 Mg Tablet PO 40 mg QAM ARELI Administration Sodium Chloride 10 ml 04/05/22
== END 2022-04-10 12:43 | disposition home or self-care (01) | DRG 389 ==
LOC: ANHED 07:02 → ANH3MEDSUR 08:58
PROVIDERS: Emergency Medicine; Physician Assistant; Surgery; Admitting Provider Family Medicine; Emergency Provider Emergency Medicine; PCP Emergency Medicine; Visit Provider Nurse Practitioner Adult Health
DX: K56.609 Unspecified intestinal obstruction, unspecified as to partial versus complete obstruction (principal); J96.11 Chronic respiratory failure with hypoxia; E44.0 Moderate protein-calorie malnutrition; D50.9 Iron deficiency anemia, unspecified; J44.9 Chronic obstructive pulmonary disease, unspecified; E87.6 Hypokalemia; E78.5 Hyperlipidemia, unspecified; E53.8 Deficiency of other specified B group vitamins; E55.9 Vitamin D deficiency, unspecified; K21.9 Gastro-esophageal reflux disease without esophagitis; M54.9 Dorsalgia, unspecified; G89.29 Other chronic pain; G25.81 Restless legs syndrome; G47.33 Obstructive sleep apnea (adult) (pediatric); G62.9 Polyneuropathy, unspecified; F41.9 Anxiety disorder, unspecified; F32.A Depression, unspecified; Z90.49 Acquired absence of other specified parts of digestive tract; Z90.710 Acquired absence of both cervix and uterus; Z87.891 Personal history of nicotine dependence
CPT/HCPCS: 36415; 36569; 74018; 74177; 74250; 80048; 80053; 81001; 82948; 83540; 83550; 83605; 83690; 83735; 84100; 84466; 84478; 85025; 85027; 85610; 85730; 96361; 96374; 96375; 99285; A9270; C1751; C9113; G0378; J0131; J1170; J1650; J2270; J2405; J3480; J7030; J7040; Q9967

== ENCOUNTER 2022-04-21 01:18 | Inpatient (IN) | payer MEDICARE, MEDICAID, SELFPAY ==
[2022-04-21] VITALS (21 sets, daily range): BP systolic 108–160; BP diastolic 54–83; PULSE 70–97; RESP 16–22; TEMP 36–36.9; O2SAT 89–100; BMI 31.4
--- NOTE | ~2022-04-21 | XR_ITS ---
EXAMINATION: XR abdomen/kub 1V DATE: 04/22/2022 05:47 INDICATION: Small bowel obstruction. TECHNIQUE: A supine view of the abdomen on 2 radiographs was obtained. COMPARISON: CT abdomen and pelvis 04/21/2022 FINDINGS: There is dilated small bowel in the midabdomen. The colon is decompressed. The nasogastric tube tip is in the stomach. Surgical clips in the right upper quadrant are likely from cholecystectom y. There are old healed bilateral rib fractures. IMPRESSION: 1. Persistently dilated small bowel, consistent with adynamic ileus versus partial small bowel obstru ction. Reviewed, dictated and finalized at location A. IMPRESSION: 1. Persistently dilated small bowel, consistent with adynamic ileus versus part ial small bowel obstruction.
--- NOTE | ~2022-04-21 | CT_ITS ---
EXAMINATION: CT abdomen pelvis w con DATE: 04/21/2022 03:17 INDICATION: Generalized abdominal pain. Nausea and vomiting. TECHNIQUE: Computed tomography (CT) of the abdomen and pelvis was performed with 100 mL Omnipaque 350 intravenous contrast. Automated exposure control and iterative reconstruction technique were employe d. The dose-length product was 743.39 mGy-cm. COMPARISON: CT abdomen and pelvis 04/03/2022 FINDINGS: The visualized portions of the lung bases demonstrate mild emphysema, mild atelectasis, and mild chronic interstitial lung disease. No pleural effusion. The heart size is normal. No pericardia l effusion. There is a small sliding hiatal hernia. There is a 13 mm cyst in the liver. There are marissa nges of cholecystectomy. The spleen, pancreas, and adrenal glands are normal. There are cysts in the kidneys measuring up to 3.0 cm on the right. There are multiple dilated loops of small bowel. There i s an anastomosis in distal small bowel. The colon is normal in caliber. The appendix is normal. There is a large volume of stool in the colon. There are no pathologically enlarged lymph nodes. There is no free intraperitoneal fluid. There are old healed bilateral rib fractures. There is mild lumbar spo ndylosis. IMPRESSION: 1. Dilated small bowel, consistent with adynamic ileus versus partial small bowel obstruction. 2. Small sliding hiatal hernia. Reviewed, dictated and finalized at location A. IMPRESSION: 1. Dilated small bowel, consistent with adynamic ileus versus partial small bow el obstruction. 2. Small sliding hiatal hernia.
--- NOTE | ~2022-04-21 | XR_ITS ---
EXAMINATION: XR abdomen/kub 1V DATE: 04/21/2022 06:39 INDICATION: Nasogastric tube placement. TECHNIQUE: A supine view of the abdomen was obtained. COMPARISON: CT abdomen and pelvis 04/21/2022 FINDINGS: There are multiple dilated loops of small bowel. The colon is decompressed. The nasogastric tube tip is in the stomach. Surgical clips in the right upper quadrant are likely from cholecystecto my. IMPRESSION: 1. Nasogastric tube tip in the stomach. 2. Dilated small bowel, consistent with adynamic ileus versus partial small bowel obstruction. Reviewed, dictated and finalized at location A. IMPRESSION: 1. Nasogastric tube tip in the stomach. 2. Dilated small bowel, consistent with adynamic ileus versus partial small bow el obstruction.
--- NOTE | ~2022-04-21 | US_ITS ---
EXAMINATION: US abdomen limited DATE: 04/22/2022 12:47 INDICATION: Elevated liver function tests TECHNIQUE: Multiple grayscale and Doppler ultrasound images of the abdomen were obtained. COMPARISON: CT from yesterday FINDINGS: The pancreas is not well demonstrated. There is a 1.1 cm cyst of the left hepatic lobe. The liver is otherwise normal with normal echogenicity and echotexture. No surface nodularity. Normal he patopetal flow in the main portal vein. The gallbladder is surgically absent. The common bile duct is not well demonstrated. IMPRESSION: 1. No sonographic correlate for the patient's symptoms. Reviewed, dictated and finalized at location B.
--- NOTE | ~2022-04-21 | XR_ITS ---
EXAMINATION: XR sm bowel follow through WS DATE: 04/23/2022 11:29 INDICATION: Small bowel obstruction TECHNIQUE: Filling Carrier radiograph(s) of the abdomen was/were obtained. Water-soluble oral contrast was admi nistered, and sequential radiographs of the abdomen were obtained until oral contrast was noted to be in the proximal colon. COMPARISON: CT dated 04/21/2022 and small bowel follow-through dated 04/08/2022 FINDINGS: Filling Carrier image demonstrates nasogastric tube tip in proximal side port in the body of the stomach. Monica cystectomy clips in right upper quadrant. Gas-filled but not frankly dilated loops of small bowel. Justin bsequent images demonstrate contrast extending throughout the normal caliber small bowel into the pro ximal colon on the first 15 minute image. There is a normal caliber and mucosal fold pattern througho ut the small bowel. Additional likely rectoanal anastomotic suture line in the caudal pelvis. IMPRESSION: 1. No bowel obstruction with rapid transit of contrast through the normal small bowel reaching the ce cum by 15 minutes. Reviewed, dictated and finalized at location A. IMPRESSION: 1. No bowel obstruction with rapid transit of contrast through the normal small bowel reaching the cecum by 15 minutes.
--- NOTE | 2022-04-21 01:39 | ED.ABDPAIN ---
HPI - Abdominal Pain General Chief Complaint: Abdominal Pain Stated Complaint: N/V, abd pain Time Seen by Provider: 04/21/22 01:26 Source: patient, RN notes reviewed and old records reviewed Mode of arrival: ambulatory Limitations: no limitations History of Present Illness HPI narrative: This is a 61 year old female wit history of small bowel obstructions who presents for evaluation of abdominal pain with nausea and vomiting. PAtient developed diffuse abdominal pain at 5 pm, and her pain has been constant. She had a bowel movement prior to her developing abdominal pain. She denies passing flatus or stool since her pain. She also reports sweats and chills. She denies any urinary issues. Related Data Home Medications Medication Instructions Recorded Confirmed albuterol sulfate 90 mcg/actuation 2 inhalation inhalation Q4H PRN 09/21/19 04/03/22 aerosol inhaler (ProAir HFA) Shortness Of Breath Or Wheezing modafinil 200 mg tablet 200 mg PO QAM 09/21/19 04/03/22 ferrous sulfate 325 mg (65 mg 325 mg PO DAILY 01/09/22 04/03/22 iron) tablet fluticasone fur. 100 mcg-umeclid 1 inh inhalation DAILY 03/28/22 04/03/22 62.5 mcg-vilant 25 mcg inhalat.powder (Trelegy Ellipta) Allergies Allergy/AdvReac Type Severity Reaction Status Date / Time latex Allergy Unknown unknown Verified 04/21/22 01:30 Penicillins Allergy Unknown unknown Verified 04/21/22 01:30 Review of Systems Review of Systems: All systems reviewed & are unremarkable except as noted in HPI and below PMFSH Past Medical History Medical History Chronic anemia (Unknown) Chronic back pain Chronic obstructive pulmonary disease (Unknown) Chronic respiratory failure with hypoxia On 2 liters nasal cannula p.r.n. Depression with anxiety Dyslipidemia Gastroesophageal reflux disease (Unknown) History of vaginal delivery Hypothyroidism Migraine headache Obstructive sleep apnea Peripheral neuropathy Restless leg syndrome, controlled Scoliosis Small bowel obstruction due to adhesions Previous, multiple admissions for such. Vitamin D deficiency Surgical History Surgical History Bladder prolapse Repair of bladder prolapse. History of bilateral cataract extraction History of bowel resection 2009 low anterior resection History of cholecystectomy Open cholecystectomy History of colostomy History of colostomy reversal History of eye surgery Treatment of amblyopia. History of hysterectomy History of neck surgery History of tonsillectomy and adenoidectomy Rectal prolapse Rectal prolapse repair. Status post small bowel resection (~01/2019) Exploratory laparotomy with resection of 36 centimeters of the small bowel with extensive adhesiolysis and ileal-ileal anastomosis. [place] teeth removed Family History Family History Father Cirrhosis Alcoholism Mother Emphysema of lung Alcoholism Social History Social History Social History: The patient lives in [place] with her significant other, Luis Fernando. 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 She smoked about a pack of cigarettes per day for > 30 years and quit in 2018. She denies alcohol and illicit substance abuse. She designates her son, Rohit, as her surrogate decision maker and she wishes to be a full code. Smoking packs per day: 0.5 Smoking cigarettes per day: 10.0 Years smoked: 40 Smoking pack-years: 20.00 Smoking status: Current every day smoker Tobacco type: cigarettes Second hand tobacco smoke exposure: Yes Alcohol intake: never Substance use: never Substance use type: does not use Gender identity (if verbalized by the patient): Female Sexual Orientation (if Verbalized by the Patient): Straight or Heterosexual Spiritual care concerns: No Exam
[2022-04-21] MEDS: ONDANSETRON INJ 4 MG/2 ML VIAL IV PUSH ×3 (01:42→17:04)
[2022-04-21] MEDS: MORPHINE SULFATE (*CRX) 4 MG/ML INJ IV PUSH (01:43)
[2022-04-21 01:45] LABS: Basophils Absolute Auto 0.1 K/mm3 (0.0-0.1); Basophils Percent Auto 0.5 % (0.2-1.2); Eosinophils Absolute Auto 0.1 K/mm3 (0-0.3); Eosinophils Percent Auto 0.5 % (0-4.4); Hematocrit 45.3 % (37.0-47.0); Hemoglobin 14.9 g/dL (12.0-15.0); Immature Granulocyte Absolute 0.14 K/mm3 (0.00-0.031); Immature Granulocyte Percent A 0.9 % (0-0.5); Lymphocytes Absolute Auto 2.94 K/mm3 (0.9-3.2); Lymphocytes Percent Auto 18.8 % (18.3-44.2); Mean Corpuscular HGB Conc 32.9 g/dl (32-36); Mean Corpuscular Volume 94.2 fl (80-100); Mean Platelet Volume 9.6 fl (7.4-10.4); Monocytes Absolute Auto 0.7 K/mm3 (0.1-0.6); Monocytes Percent Auto 4.4 % (2.6-8.5); Neutrophils Absolute Auto 11.7 K/mm3 (1.3-6.7); Neutrophils Percent Auto 74.9 % (45.5-73.1); Platelet Count Result 556 k/mm3 (150-375); Red Blood Count 4.81 M/mm3 (4.2-5.4); Red Cell Distribution Width 16.5 % (11.5-14.5); White Blood Count 15.6 K/mm3 (4.5-10.0)
[2022-04-21] MEDS: LACTATED RINGERS 1,000 ML 999 ML IV CONT (01:45)
[2022-04-21 02:04] LABS: Appearance Urine Clear (Clear); Bilirubin Urine 1+ (Negative); Blood Urine Trace-lysed (Negative); Color Urine Yellow (Yellow); Glucose Urine UA Negative (Negative); Ketones Urine Trace mg/dL (Negative); Leukocyte Esterase Ur Negative LEU/UL (Negative); Nitrate Urine Negative (Negative); Protein Urine 1+ mg/dL (Negative); Specific Grav Ur >= 1.030 (1.001-1.035); Urobilinogen Urine 0.2 mg/dL (<2.0); pH Urine 5.5 (5.0-9.0)
[2022-04-21 02:12] LABS: Amorphous Sediment Urine Few; Bacteria Urine Trace /hpf; Calcium Oxalate Crystals Urine Present /hpf; Mucus Urine Moderate /lpf; RBC Urine 21-50 /hpf (0-2); Squamous Epithelial Cell Urine Few /hpf (Few)
[2022-04-21 02:34] LABS: Alanine Aminotransferase 34 U/L (6-35); Alkaline Phosphatase 151 U/L (38-126); Anion Gap 15 mmol/L (8-16); Aspartate Amino Transferase 37 U/L (14-36); Bilirubin,Total 0.5 mg/dL (0.2-1.3); Blood Urea Nitrogen 23 mg/dL (7-17); Calcium 9.8 mg/dL (8.4-10.2); Carbon Dioxide 24 mmol/L (22-30); Chloride 97 mmol/L (98-107); Estimated CRCL calculation 60 ml/min; Estimated Glomerular Filt Rate > 60; Glucose 181 mg/dL (65-110); Lipase 92 U/L (23-300); Potassium 4.1 mmol/L (3.4-5.0); Sodium 136 mmol/L (137-145)
[2022-04-21 03:00] LABS: Add Urine Microscopic? YES
--- NOTE | 2022-04-21 03:05 | PC.NURSE ---
Assumed care of pt at this time.
--- NOTE | 2022-04-21 03:16 | PC.NURSE ---
Pt returned from CT scan.
[2022-04-21] MEDS: HYDROmorphone HCL INJ (*CRX) 1 MG/ML SYR 0.5 MG IV PUSH ×4 (04:57→20:49)
--- NOTE | 2022-04-21 05:46 | PC.NURSE ---
Per MARY Verde to use
--- NOTE | 2022-04-21 06:36 | ADMGEN ---
This patient, Rebecca Ricci, was admitted to [facility] S[facility] Room 324-02. Patient/family oriented to hospital policies and general routines including ID bracelet, bed and alarms, visiting hours, pain management, procedures, bathroom and other care routines, personal items, smoking policy, room service/diet, and visiting hours. Information on how to activate the Rapid Response Team has been discussed. Patient/Family are encouraged to report perceived risks to care and to ask questions if they do not understand what they are told or what they should do.
[2022-04-21] MEDS: SODIUM CHLORIDE 0.9% IV 1,000 ML 200 ML IV CONT ×3 (06:42→16:54)
--- NOTE | 2022-04-21 10:15 | PM.IMHP ---
H&P: HPI History of Present Illness Date/Time: 04/21/22 10:15 Chief Complaint: abdominal pain, nausea, and vomiting Narrative: patient is 61-year-old female with an extensive history of bowel obstruction, COPD, hyperlipidemia, LEVY who presented to the ED for abdominal pain and nausea vomiting. Patient stated all started around 1700 yesterday and she started having abdominal pain that feels like she is in labor and get him a baby. She stated that she has been taking her MiraLax with her coffee in the morning to try to prevent recurrent bowel obstruction. She stated that her diet has not really changed. She did state that when she was discharged 2 weeks ago that she started off with a low-fiber diet and then slowly increased her diet back to a regular normal diet. She stated last night she had baked chicken thighs with mashed we potatoes, dressing and cantaloupe for dessert. She stated that she started to get hungry around 430 and decided to have pizza. She did state that she is having some sweats and chills especially when she goes to her pain. She denies any chest pain, shortness of breath, diarrhea, constipation, lightheadedness, dizziness, falls, syncope. She stated that before the pain medicine her abdominal pain was 7/10 that just keeps getting gradually worse. She also stated that she keeps having bowel movements however is very little. She also takes Activia, probiotics and tries to stick with a high-fiber diet. I did talk to Dr. Villarreal who asked about trying to get the patient transferred to [place] where her 1st surgery was done. I did call the [place] transfer center however they told me that unless she had a time critical diagnosis or establish care within last 2 years for the problem presented that they would be able to put her on the list however if not they were not taking any patient at this time. Patient is currently being admitted hospital services as an inpatient Review of Systems Review of Systems: All systems reviewed & are unremarkable except as noted in HPI and below PMFSH Past Medical History Medical History Chronic anemia (Unknown) Chronic back pain Chronic obstructive pulmonary disease (Unknown) Chronic respiratory failure with hypoxia On 2 liters nasal cannula p.r.n. Depression with anxiety Dyslipidemia Gastroesophageal reflux disease (Unknown) History of vaginal delivery Hypothyroidism Migraine headache Obstructive sleep apnea Peripheral neuropathy Restless leg syndrome, controlled Scoliosis Small bowel obstruction due to adhesions Previous, multiple admissions for such. Vitamin D deficiency Surgical History Surgical History Bladder prolapse Repair of bladder prolapse. History of bilateral cataract extraction History of bowel resection 2009 low anterior resection History of cholecystectomy Open cholecystectomy History of colostomy History of colostomy reversal History of eye surgery Treatment of amblyopia. History of hysterectomy History of neck surgery History of tonsillectomy and adenoidectomy Rectal prolapse Rectal prolapse repair. Status post small bowel resection (~01/2019) Exploratory laparotomy with resection of 36 centimeters of the small bowel with extensive adhesiolysis and ileal-ileal anastomosis. [place] teeth removed Family History Family History Father Cirrhosis Alcoholism Mother Emphysema of lung Alcoholism Social History Social History Social History: The patient lives in [place] with her significant other, Luis Fernando. 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 She smoked about a pack of cigarettes per day for > 30 years and quit in 2018. She denies alcohol and illicit substance abuse. She designates her son, Rohit, as her surrogate paulo
--- NOTE | 2022-04-21 10:33 | ADMGEN ---
This patient, Rebecca Ricci, was admitted to [facility] Surg Room 324-02. Patient/family oriented to hospital policies and general routines including ID bracelet, bed and alarms, visiting hours, pain management, procedures, bathroom and other care routines, personal items, smoking policy, room service/diet, and visiting hours. Information on how to activate the Rapid Response Team has been discussed. Patient/Family are encouraged to report perceived risks to care and to ask questions if they do not understand what they are told or what they should do.
--- NOTE | 2022-04-21 14:49 | PM.CNGS ---
Assessment and Plan Assessment and plan (1) SBO (small bowel obstruction): Code(s): K56.609 - Unspecified intestinal obstruction, unspecified as to partial versus complete obstruction Status: Acute Assessment and Plan: Will treat again with nasogastric suction, bowel rest IV fluids and analgesics as needed. If this fails to resolve, she will likely need laparotomy and adhesiolysis, additional bowel resection certainly may be necessary as this would be a difficult surgery. I discussed this with her. We did try to transfer her to [facility] but that is unavailable. Will follow daily exam, labs, KUB and manage appropriately. (2) COPD (chronic obstructive pulmonary disease): Code(s): J44.9 - Chronic obstructive pulmonary disease, unspecified Status: Chronic Assessment and Plan: Increases surgical risk (3) MARÍA (iron deficiency anemia): Code(s): D50.9 - Iron deficiency anemia, unspecified Status: Chronic (4) B12 deficiency: Code(s): E53.8 - Deficiency of other specified B group vitamins Status: Chronic History of Present Illness Consult details Consult date: 04/21/22 Reason for consult: abdominal pain (Recurrent small-bowel obstruction) Requesting physician: Chrissy Vickers MD Narrative: Patient is a 61-year-old woman known to me from a recent admission for small bowel obstruction. She was admitted on April 03 and was treated with nasogastric suction IV fluids and bowel rest. Her bowel obstruction did resolve as documented by a small-bowel follow-through done with water-soluble contrast. She was able to be discharged on 04/10/2022. The patient was doing well at home but then about 5:00 p.m. last night following a bowel movement she developed severe, diffuse, constant abdominal pain followed by nausea and vomiting. She came to the emergency room. She was noted to have diffuse tenderness and some distention. She had mild tachycardia and her white blood cell count was elevated to fifteen thousand [address] scan of the abdomen pelvis was done and showed likely partial small-bowel obstruction versus ileus. There was a lot of semi solid material in her stomach. Nasogastric tube was placed. She had quite a bit of vomiting in the emergency room as well. A large volume of NG material returned. She has been admitted and I am seeing her now in consultation for recurrent small-bowel obstruction. She is known to have COPD but continues to smoke. She does not wear oxygen regularly but does sometimes were 2 L at night. She has had multiple previous surgeries primarily following a hysterectomy and rectovaginal fistula. She had a diverting colostomy but then later had resection and repair of the fistula. The colostomy was later closed. She started having bowel obstructions after this. She did have a laparotomy in 2019 with small-bowel resection. The operative note from this describes 2-1/2 hours of adhesiolysis and a very difficult surgery. Patient is also known to have iron deficiency anemia and B12 deficiency. She is followed by Dr. Mauricio and her deficiencies are felt to be related to previous small-bowel resection. She is seen now in consultation. Review of Systems Review of Systems: All systems reviewed & are unremarkable except as noted in HPI and below (HPI and those items noted below) Constitutional: Constitutional: Denies chills and Denies fever(s) Cardiovascular: Cardiovascular: Denies chest pain, Denies diaphoresis, Denies dyspnea and Denies paroxysmal nocturnal dyspnea Respiratory: Respiratory: Denies chest congestion, Denies cough and Denies dyspnea Gastrointestinal: Gastrointestinal: Reports as per HPI, Reports abdominal pain, Reports nausea and Reports vomiting Integumentary/Breasts: Skin/Breast: Denies lesions and Denies rash [facility] Past Medical History Medical History Chronic anemia (Unknown) Chroni
[2022-04-21] MEDS: SODIUM CHLORIDE 0.9% IV 1,000 ML 100 ML IV CONT (20:48)
[2022-04-22] MEDS: HYDROmorphone HCL INJ (*CRX) 1 MG/ML SYR 0.5 MG IV PUSH ×4 (01:45→20:59)
[2022-04-22 06:00] VITALS: BP 157/90; PULSE 56; RESP 18; TEMP 36.4; O2SAT 99
[2022-04-22 06:45] LABS: Basophils Percent Auto 0.6 % (0.2-1.2); Eosinophils Absolute Auto 0.1 K/mm3 (0-0.3); Eosinophils Percent Auto 1.3 % (0-4.4); Hemoglobin 11.4 g/dL (12.0-15.0); Immature Granulocyte Absolute 0.04 K/mm3 (0.00-0.031); Immature Granulocyte Percent A 0.8 % (0-0.5); Lymphocytes Absolute Auto 2.53 K/mm3 (0.9-3.2); Lymphocytes Percent Auto 47.6 % (18.3-44.2); Mean Corpuscular HGB Conc 31.7 g/dl (32-36); Mean Corpuscular Hemoglobin 30.7 pg (26-34); Mean Platelet Volume 9.7 fl (7.4-10.4); Monocytes Absolute Auto 0.5 K/mm3 (0.1-0.6); Monocytes Percent Auto 8.6 % (2.6-8.5); Neutrophils Absolute Auto 2.2 K/mm3 (1.3-6.7); Neutrophils Percent Auto 41.1 % (45.5-73.1); Platelet Count Result 364 k/mm3 (150-375); Red Blood Count 3.71 M/mm3 (4.2-5.4); Red Cell Distribution Width 16.4 % (11.5-14.5); White Blood Count 5.3 K/mm3 (4.5-10.0)
[2022-04-22 07:13] LABS: Alanine Aminotransferase 409 U/L (6-35); Albumin Level 3.3 g/dL (3.5-5.1); Alkaline Phosphatase 169 U/L (38-126); Anion Gap 5 mmol/L (8-16); Aspartate Amino Transferase 392 U/L (14-36); Bilirubin,Total 0.5 mg/dL (0.2-1.3); Blood Urea Nitrogen 10 mg/dL (7-17); Calcium 7.9 mg/dL (8.4-10.2); Carbon Dioxide 27 mmol/L (22-30); Chloride 104 mmol/L (98-107); Estimated CRCL calculation 93 ml/min; Estimated Glomerular Filt Rate > 60; Glucose 103 mg/dL (65-110); Potassium 3.8 mmol/L (3.4-5.0); Sodium 136 mmol/L (137-145)
[2022-04-22 08:00] VITALS: PULSE 56; RESP 18; O2SAT 95
[2022-04-22] MEDS: ENOXAPARIN 40 MG/0.4 ML SYRINGE SUB-Q (08:15)
[2022-04-22] MEDS: SODIUM CHLORIDE 0.9% IV 1,000 ML 100 ML IV CONT ×2 (08:15→16:18)
[2022-04-22] MEDS: FLUTICASONE/UMECLIDIN/VILANTER 100-62.5-25 MCG ELLIPTA 1 PUFF INHALATION (08:45)
[2022-04-22 08:48] VITALS: O2SAT 95
--- NOTE | 2022-04-22 11:15 | PM.IMPN ---
Progress Note: A&P Assessment and Plan (1) SBO (small bowel obstruction): Code(s): K56.609 - Unspecified intestinal obstruction, unspecified as to partial versus complete obstruction Status: Acute Assessment and Plan: Abd xray from 04/22/22 dilated small bowel consistent with adynamic ileus vs PSBO Abd/pel ct Dilated small bowel, consistent with adynamic ileus versus partial small bowel obstruction, Small sliding hiatal hernia. General surgery consulted WBC elevated 5.3 Trend labs NPO for now Pain medications on board Anti-emetics NS at 200ml/hr Trend KUB NG tube to suction (2) Obstructive sleep apnea: Code(s): G47.33 - Obstructive sleep apnea (adult) (pediatric) Status: Chronic Assessment and Plan: Continue home CPAP/BIPAP (3) COPD (chronic obstructive pulmonary disease): Code(s): J44.9 - Chronic obstructive pulmonary disease, unspecified Status: Chronic Assessment and Plan: Continue albuterol treatments PRN No acute exacerbation (4) Anemia: Qualifiers: Anemia type: iron deficiency Iron deficiency anemia type: unspecified iron deficiency Qualified Code(s): D50.9 - Iron deficiency anemia, unspecified Code(s): D64.9 - Anemia, unspecified Status: Acute Assessment and Plan: H/H 11.4/36.0 Stable for now Takes iron at home, will hold for now Continue to trend labs Supplement as appropriate Transfuse as indicated (5) Transaminitis: Code(s): R74.01 - Elevation of levels of liver transaminase levels Status: Acute Assessment and Plan: AST/ALT 392/409, alk phos 169 RUQ ultrasound normal Hep panel in the am Appears that enzymes were elevated last time as well Continue to trend labs Hold Tylenol for now Time Spent With Patient Time with patient: Greater than 35 minutes Subjective Date/time seen: 04/22/22 11:15 Interval history: 04/22/22 1115 Patient states that she is having a lot of pain however it is better than yesterday. She has not had any bowel movements since yesterday and she is also having this really bad cramping. She denies any chest pain or shortness of breath. She did say that she has nausea once while a right sides pretty quickly. Today patient does have elevated liver enzymes right upper quadrant ultrasound was negative. Will continue to trend. 04/21/22? 10:15 ?patient is 61-year-old female with an extensive history of bowel obstruction, COPD, hyperlipidemia, LEVY who presented to the ED for abdominal pain and nausea vomiting.? Patient stated all started around 1700 yesterday and she started having abdominal pain that feels like she is in labor and get him a baby.? She stated that she has been taking her MiraLax with her coffee in the morning to try to prevent recurrent bowel obstruction.? She stated that her diet has not really changed.? She did state that when she was discharged 2 weeks ago that she started off with a low-fiber diet and then slowly increased her diet back to a regular normal diet.? She stated last night she had baked chicken thighs with mashed we potatoes, dressing and cantaloupe for dessert.? She stated that she started to get hungry around 430 and decided to have pizza.? She did state that she is having some sweats and chills especially when she goes to her pain.? She denies any chest pain, shortness of breath, diarrhea, constipation, lightheadedness, dizziness, falls, syncope.? She stated that before the pain medicine her abdominal pain was 7/10 that just keeps getting gradually worse.? She also stated that she keeps having bowel movements however is very little.? She also takes Activia, probiotics and tries to stick with a high-fiber diet. ? I did talk to Dr. Villarreal who asked about trying to get the patient transferred to [place] where her 1st surgery was done.? I did call the [place] transfer center however
--- NOTE | 2022-04-22 13:05 | PM.PNGS ---
Progress Note: A&P Assessment and Plan (1) SBO (small bowel obstruction): Code(s): K56.609 - Unspecified intestinal obstruction, unspecified as to partial versus complete obstruction Status: Acute Assessment and Plan: KUB this morning still suggests small bowel obstruction. Overall she is feeling better today. Continue NG tube, bowel rest, and IV fluids. Repeat plain films tomorrow. Encouraged ambulating in the room/halls as tolerated a few times today. (2) COPD (chronic obstructive pulmonary disease): Code(s): J44.9 - Chronic obstructive pulmonary disease, unspecified Status: Chronic (3) MARÍA (iron deficiency anemia): Code(s): D50.9 - Iron deficiency anemia, unspecified Status: Chronic (4) B12 deficiency: Code(s): E53.8 - Deficiency of other specified B group vitamins Status: Chronic Plan I have discussed the patient's case and plan of care with Dr. Villarreal. Subjective Subjective Date/Time Seen: 04/22/22 13:05 Patient reports: feels better, pain is less, flatus, no bowel movement and afebrile Interval history: This is a 61 yo F who presented with abdominal pain and is well known to our service from recurrent small bowel obstructions with a significant history of multiple abdominal surgeries. Workup revealed CT evidence of a small bowel obstruction. She now has an NG tube. Chart reviewed. Pt seen and examined. She reports her abdominal pain has improved some today and seems less severe. Still coming in waves at times but controlled with the IV Dilaudid. She reports some flatus last night and this morning. No other complaints at this time. Review of Systems Review of Systems: All systems reviewed & are unremarkable except as noted in HPI and below Exam Const: General: comfortable, no acute distress and awake Nutritional Appearance: overweight Orientation/consciousness: patient oriented x3 GI: Inspection: distended GI Palp: Yes Soft to palpation, Yes Tenderness to palpation present (GI) (diffusely tender), No Guarding due to palpation present (GI) and No Rebound tenderness present Auscultation: Hypoactive bowel sounds present Extrem: General: normal to inspection and no calf tenderness Psych: Insight: Good insight present (Psych) Objective Data Vital Signs Vital Signs: Vital Signs - 24 hr 04/21/22 14:00 04/21/22 22:00 04/22/22 06:00 Temperature 98.4 F 97.6 F 97.6 F Pulse Rate 70 72 56 L Respiratory Rate 20 18 18 Blood Pressure 154/80 H 143/75 H 157/90 H Pulse Oximetry 100 96 99 Oxygen Delivery Oxygen Flow Rate 04/22/22 08:48 04/22/22 08:00 Temperature Pulse Rate 56 L Respiratory Rate 18 Blood Pressure Pulse Oximetry 95 95 Oxygen Delivery Nasal Cannula Nasal Cannula Oxygen Flow Rate 2 2 Intake/Output Intake/Output: Intake & Output 04/19/22 04/20/22 04/21/22 04/22/22 23:59 23:59 23:59 23:59 Intake Total 4100 1300 Output Total 800 800 Balance 3300 500 Meds/Results Medications: Active Medications Generic Name Dose Route Start Last Admin Trade Name Freq PRN Reason Stop Dose Admin Albuterol 2.5 mg 04/21/22 14:51 Albuterol Sulfate Neb 2.5 Mg/3 Ml Inh INHALATION Q6HRT PRN Shortness Of Breath Enoxaparin Sodium 40 mg 04/22/22 09:00 04/22/22 08:15 Enoxaparin 40 Mg/0.4 Ml Syringe SUB-Q 40 mg DAILY ARELI Administration Fluticasone/Umeclidinium/Vilanterol 1 puff 04/22/22 08:00 04/22/22 08:45 Fluticasone/Umeclidin/Vilanter 100-62.5-25 Mcg Ellipta INHALATION 1 puff DAILYRT ARELI Administration Hydromorphone HCl 0.5 mg 04/21/22 05:41 04/22/22 12:02 Hydromorphone Hcl Inj (*Crx) 1 Mg/Ml Syr IV PUSH 0.5 mg Q4H PRN Administration Pain Rated 7-10 Sodium Chloride 1,000 mls @ 100 mls/hr 04/21/22 05:45 04/22/22 08:15 Normal Saline Iv IV CONT 100 mls/hr .Q10H ARELI Administration Ondansetron HCl 4 mg 04/21/22 05:41 04/21/22 17:04 Ondansetron Inj 4 Mg/2 Ml Vi
[2022-04-22 14:00] VITALS: BP 133/70; PULSE 70; RESP 20; TEMP 37.1; O2SAT 96
--- NOTE | 2022-04-22 16:16 | PC.NURSE ---
900 ml out NG green
[2022-04-22 22:00] VITALS: BP 151/80; PULSE 57; RESP 20; TEMP 36.2; O2SAT 97
[2022-04-23] MEDS: SODIUM CHLORIDE 0.9% IV 1,000 ML 100 ML IV CONT (02:28)
[2022-04-23 06:00] VITALS: BP 105/90; PULSE 80; RESP 20; TEMP 36.4; O2SAT 90
[2022-04-23 06:26] LABS: Hematocrit 40.1 % (37.0-47.0); Hemoglobin 13.2 g/dL (12.0-15.0); Mean Corpuscular HGB Conc 32.9 g/dl (32-36); Mean Corpuscular Hemoglobin 31.3 pg (26-34); Mean Platelet Volume 9.8 fl (7.4-10.4); Platelet Count Result 421 k/mm3 (150-375); Red Blood Count 4.22 M/mm3 (4.2-5.4); Red Cell Distribution Width 15.3 % (11.5-14.5); White Blood Count 7.8 K/mm3 (4.5-10.0)
[2022-04-23 06:37] LABS: Alanine Aminotransferase 316 U/L (6-35); Albumin Level 4.1 g/dL (3.5-5.1); Alkaline Phosphatase 196 U/L (38-126); Anion Gap 9 mmol/L (8-16); Aspartate Amino Transferase 161 U/L (14-36); Bilirubin,Total 0.5 mg/dL (0.2-1.3); Blood Urea Nitrogen 7 mg/dL (7-17); Calcium 8.5 mg/dL (8.4-10.2); Carbon Dioxide 26 mmol/L (22-30); Chloride 103 mmol/L (98-107); Estimated CRCL calculation 93 ml/min; Estimated Glomerular Filt Rate > 60; Glucose 94 mg/dL (65-110); Potassium 3.5 mmol/L (3.4-5.0); Sodium 138 mmol/L (137-145)
[2022-04-23 07:50] LABS: Hepatitis B Surface Antigen Negative (Negative)
[2022-04-23 07:56] LABS: HAV RESULT Negative (Negative); Hepatitis B Core IgM Result Negative (Negative)
[2022-04-23] MEDS: FLUTICASONE/UMECLIDIN/VILANTER 100-62.5-25 MCG ELLIPTA 1 PUFF INHALATION (07:56)
[2022-04-23 07:57] VITALS: O2SAT 95
[2022-04-23 08:00] VITALS: O2SAT 96
[2022-04-23 08:08] LABS: Hepatitis C Virus Antibody Negative (Negative)
--- NOTE | 2022-04-23 10:33 | PM.PNGS ---
Progress Note: A&P Assessment and Plan (1) SBO (small bowel obstruction): Code(s): K56.609 - Unspecified intestinal obstruction, unspecified as to partial versus complete obstruction Status: Acute Assessment and Plan: Seems to be resolving. Obstructive series this morning still has not been done. Patient has had multiple bowel movements overnight and this morning. She is feeling much better today. I will have the nurse put her NG back to suction to make sure she does not have high output at this time after being clamped for 4 hours. We will then likely proceed with a Gastrografin small-bowel follow-through today. Continue NG tube, bowel rest, and IV fluids. (2) COPD (chronic obstructive pulmonary disease): Code(s): J44.9 - Chronic obstructive pulmonary disease, unspecified Status: Chronic (3) MARÍA (iron deficiency anemia): Code(s): D50.9 - Iron deficiency anemia, unspecified Status: Chronic (4) B12 deficiency: Code(s): E53.8 - Deficiency of other specified B group vitamins Status: Chronic Plan I have discussed the patient's case and plan of care with Dr. Uribe. Subjective Subjective Date/Time Seen: 04/23/22 10:00 Patient reports: no new complaints, feels better, pain is less, flatus, bowel movement and afebrile Interval history: Patient seen and examined. She is feeling much better today. She denies any abdominal pain at the time of my exam. Reports having some minimal cramping intermittently overnight that required 1 dose of Dilaudid, but no further pain medication into today. She had 3 large formed bowel movements overnight and another 3-4 so far this morning. She states nursing clamped her NG tube around 6:00 a.m. and this has been off suction since then due to her getting up and walking around in using the bathroom. She denies any nausea or worsening pain while this was clamped. Also to note, there is 1000 mL documented NG output from overnight and 900 mL documented 4 yesterday. The patient has only had 1 cup of ice chips overnight of oral intake. Per nursing, they are unsure if this was an accidental documentation or if she truly had 1 L out overnight. The nurse is putting her back to suction now. Review of Systems Review of Systems: All systems reviewed & are unremarkable except as noted in HPI and below Exam Const: General: comfortable, no acute distress and awake Orientation/consciousness: patient oriented x3 GI: Inspection: non-distended GI Palp: Yes Soft to palpation, Yes Tenderness to palpation present (GI) (Diffusely tender, but improved), No Guarding due to palpation present (GI) and No Rebound tenderness present Auscultation: normal bowel sounds Extrem: General: normal to inspection and no calf tenderness Psych: Insight: Good insight present (Psych) Objective Data Vital Signs Vital Signs: Vital Signs - 24 hr 04/22/22 14:00 04/22/22 20:00 04/22/22 22:00 Temperature 98.8 F 97.2 F L Pulse Rate 70 57 L Respiratory Rate 20 20 Blood Pressure 133/70 151/80 H Pulse Oximetry 96 97 Oxygen Delivery Room Air Oxygen Flow Rate 04/23/22 06:00 04/23/22 07:57 Temperature 97.5 F L Pulse Rate 80 Respiratory Rate 20 Blood Pressure 105/90 Pulse Oximetry 90 95 Oxygen Delivery Nasal Cannula Oxygen Flow Rate 2 Intake/Output Intake/Output: Intake & Output 04/20/22 04/21/22 04/22/22 04/23/22 23:59 23:59 23:59 23:59 Intake Total 4100 2600 1200 Output Total 800 3001 1000 Balance 3300 -401 200 Meds/Results Medications: Active Medications Generic Name Dose Route Start Last Admin Trade Name Freq PRN Reason Stop Dose Admin Albuterol 2.5 mg 04/21/22 14:51 Albuterol Sulfate Neb 2.5 Mg/3 Ml Inh INHALATION Q6HRT PRN Shortness Of Breath Enoxaparin Sodium 40 mg 04/22/22 09:00 04/23/22 09:14 Enoxaparin 40 Mg/0.4 Ml Syringe SUB-Q Not Given DAILY ARELI Fluticasone/Umeclidinium/Vilanterol
--- NOTE | 2022-04-23 10:45 | P.PNIM_ITS ---
Progress Note: A&P Assessment and Plan (1) SBO (small bowel obstruction): Code(s): K56.609 - Unspecified intestinal obstruction, unspecified as to partial versus complete obstruction Status: Acute Assessment and Plan: * Abd xray from 04/22/22 Persistently dilated small bowel, consistent with adynamic ileus versus partial small bowel obstruction. * Abd/pel ct?Dilated small bowel, consistent with adynamic ileus versus partial small bowel obstruction, Small sliding hiatal hernia. * General surgery consulted * WBC down to 7.8 * Trend labs * NPO except ice chip, and tolerating Ice chips ok * Pain medications on board * Anti-emetics * NS at 100ml/hr * Trend KUB * NG tube removed * Sm bowel follow through ?No bowel obstruction with rapid transit of contrast through the normal small bowel reaching the cecum by 15 minutes. (2) Obstructive sleep apnea: Code(s): G47.33 - Obstructive sleep apnea (adult) (pediatric) Status: Chronic Assessment and Plan: * Continue home CPAP/BIPAP (3) COPD (chronic obstructive pulmonary disease): Code(s): J44.9 - Chronic obstructive pulmonary disease, unspecified Status: Chronic Assessment and Plan: * Continue albuterol treatments PRN * No acute exacerbation (4) Anemia: Qualifiers: Anemia type: iron deficiency Iron deficiency anemia type: unspecified iron deficiency Qualified Code(s): D50.9 - Iron deficiency anemia, unspecified Code(s): D64.9 - Anemia, unspecified Status: Acute Assessment and Plan: * H/H 13.2/40.1 * Remains stable * Takes iron at home, will hold for now * Continue to trend labs * Supplement as appropriate * Transfuse as indicated (5) Transaminitis: Code(s): R74.01 - Elevation of levels of liver transaminase levels Status: Acute Assessment and Plan: * AST/ALT 161/316, alk phos 196 * RUQ ultrasound normal * Hep panel negative * Appears that enzymes were elevated last time as well * Continue to trend labs * Hold Tylenol for now (6) Tobacco dependence: Code(s): F17.200 - Nicotine dependence, unspecified, uncomplicated Status: Acute Assessment and Plan: * Continued smoking * Nicotine patch PRN * Gum PRN when able to take PO * Smoking cessation provided >8mins (7) Hypertension: Code(s): I10 - Essential (primary) hypertension Status: Acute Assessment and Plan: * BP appears to be 151/80 * No home medications * Probably related to disease process and pain * Continue to trend * Consider medications if remains elevated Time Spent With Patient Time: 15 minutes used to talk to the family about the next steps, all questions answered and plan of care updated. Time with patient: Greater than 35 minutes Subjective Date/time seen: 04/23/22 10:45 Interval history: 04/23/22 1045 Patient stated that her pain is a lot less. She also stated that she started having lots of bowel movements last night and has continued into this morning. She denies any nausea or vomiting and has had her NG tube clamped for quite a while. Did talk to the patient about smoking cessation and also talked to her about diet control. Patient is very concerned that she might and with the ostomy
--- NOTE | 2022-04-23 10:45 | PM.IMPN ---
Progress Note: A&P Assessment and Plan (1) SBO (small bowel obstruction): Code(s): K56.609 - Unspecified intestinal obstruction, unspecified as to partial versus complete obstruction Status: Acute Assessment and Plan: Abd xray from 04/22/22 Persistently dilated small bowel, consistent with adynamic ileus versus partial small bowel obstruction. Abd/pel ct?Dilated small bowel, consistent with adynamic ileus versus partial small bowel obstruction, Small sliding hiatal hernia. General surgery consulted WBC down to 7.8 Trend labs NPO except ice chip, and tolerating Ice chips ok Pain medications on board Anti-emetics NS at 100ml/hr Trend KUB NG tube removed Sm bowel follow through ?No bowel obstruction with rapid transit of contrast through the normal small bowel reaching the cecum by 15 minutes. (2) Obstructive sleep apnea: Code(s): G47.33 - Obstructive sleep apnea (adult) (pediatric) Status: Chronic Assessment and Plan: Continue home CPAP/BIPAP (3) COPD (chronic obstructive pulmonary disease): Code(s): J44.9 - Chronic obstructive pulmonary disease, unspecified Status: Chronic Assessment and Plan: Continue albuterol treatments PRN No acute exacerbation (4) Anemia: Qualifiers: Anemia type: iron deficiency Iron deficiency anemia type: unspecified iron deficiency Qualified Code(s): D50.9 - Iron deficiency anemia, unspecified Code(s): D64.9 - Anemia, unspecified Status: Acute Assessment and Plan: H/H 13.2/40.1 Remains stable Takes iron at home, will hold for now Continue to trend labs Supplement as appropriate Transfuse as indicated (5) Transaminitis: Code(s): R74.01 - Elevation of levels of liver transaminase levels Status: Acute Assessment and Plan: AST/ALT 161/316, alk phos 196 RUQ ultrasound normal Hep panel negative Appears that enzymes were elevated last time as well Continue to trend labs Hold Tylenol for now (6) Tobacco dependence: Code(s): F17.200 - Nicotine dependence, unspecified, uncomplicated Status: Acute Assessment and Plan: Continued smoking Nicotine patch PRN Gum PRN when able to take PO Smoking cessation provided >8mins (7) Hypertension: Code(s): I10 - Essential (primary) hypertension Status: Acute Assessment and Plan: BP appears to be 151/80 No home medications Probably related to disease process and pain Continue to trend Consider medications if remains elevated Time Spent With Patient Time: 15 minutes used to talk to the family about the next steps, all questions answered and plan of care updated. Time with patient: Greater than 35 minutes Subjective Date/time seen: 04/23/22 10:45 Interval history: 04/23/22 1045 Patient stated that her pain is a lot less. She also stated that she started having lots of bowel movements last night and has continued into this morning. She denies any nausea or vomiting and has had her NG tube clamped for quite a while. Did talk to the patient about smoking cessation and also talked to her about diet control. Patient is very concerned that she might and with the ostomy bag however right now that is on the works and I explained her that that is not the worst right now. Her daughter did call I did talk to her daughter and her daughter stated that she was concerned about the next steps in this is a recurrent issue. I did tell her that we are keeping close eye on her and that our surgeons are still contemplating further procedures however it is not indicated at this time. She currently denies any chest pain, shortness of breath, weakness or fatigue. She is doing well on her feet and walking around. 04/22/22 1115 ? Patient states that she is having a lot of pain however it is better than
[2022-04-23 14:00] VITALS: BP 165/98; PULSE 87; RESP 19; TEMP 35.9; O2SAT 95
[2022-04-23 20:00] VITALS: O2SAT 96
[2022-04-23 21:42] VITALS: BP 152/64; PULSE 57; RESP 16; TEMP 36.2; O2SAT 96
[2022-04-24] MEDS: SODIUM CHLORIDE 0.9% IV 1,000 ML 100 ML IV CONT (04:49)
[2022-04-24 06:00] VITALS: BP 149/66; PULSE 72; RESP 20; TEMP 36.6; O2SAT 96
[2022-04-24 06:40] LABS: Hematocrit 38.7 % (37.0-47.0); Hemoglobin 12.8 g/dL (12.0-15.0); Mean Corpuscular HGB Conc 33.1 g/dl (32-36); Mean Corpuscular Hemoglobin 31.3 pg (26-34); Mean Corpuscular Volume 94.6 fl (80-100); Mean Platelet Volume 10.1 fl (7.4-10.4); Platelet Count Result 387 k/mm3 (150-375); Red Blood Count 4.09 M/mm3 (4.2-5.4); Red Cell Distribution Width 15.2 % (11.5-14.5); White Blood Count 7.9 K/mm3 (4.5-10.0)
[2022-04-24 06:50] LABS: Anion Gap 10 mmol/L (8-16); Blood Urea Nitrogen 6 mg/dL (7-17); Calcium 8.6 mg/dL (8.4-10.2); Carbon Dioxide 26 mmol/L (22-30); Chloride 101 mmol/L (98-107); Estimated CRCL calculation 93 ml/min; Estimated Glomerular Filt Rate > 60; Glucose 104 mg/dL (65-110); Potassium 2.9 mmol/L (3.4-5.0); Sodium 137 mmol/L (137-145)
--- NOTE | 2022-04-24 07:31 | P.PNIM_ITS ---
Progress Note: A&P Assessment and Plan (1) SBO (small bowel obstruction): Code(s): K56.609 - Unspecified intestinal obstruction, unspecified as to partial versus complete obstruction Status: Acute Assessment and Plan: * Abd xray from 04/22/22 Persistently dilated small bowel, consistent with adynamic ileus versus partial small bowel obstruction. * Abd/pel ct?Dilated small bowel, consistent with adynamic ileus versus partial small bowel obstruction, Small sliding hiatal hernia. * General surgery consulted * WBC down to 7.9 * Trend labs * Diet advanced to clear liquids * Pain medications on board * Anti-emetics * NS at 100ml/hr, if tolerating fluids ok to stop * Trend KUB * NG tube removed * Sm bowel follow through ?No bowel obstruction with rapid transit of contrast through the normal small bowel reaching the cecum by 15 minutes. (2) Obstructive sleep apnea: Code(s): G47.33 - Obstructive sleep apnea (adult) (pediatric) Status: Chronic Assessment and Plan: * Continue home CPAP/BIPAP (3) COPD (chronic obstructive pulmonary disease): Code(s): J44.9 - Chronic obstructive pulmonary disease, unspecified Status: Chronic Assessment and Plan: * Continue albuterol treatments PRN * No acute exacerbation (4) Anemia: Qualifiers: Anemia type: iron deficiency Iron deficiency anemia type: unspecified iron deficiency Qualified Code(s): D50.9 - Iron deficiency anemia, unspecified Code(s): D64.9 - Anemia, unspecified Status: Acute Assessment and Plan: * H/H 12.8/38.7 * Remains stable * Takes iron at home, will hold for now * Continue to trend labs * Supplement as appropriate * Transfuse as indicated (5) Transaminitis: Code(s): R74.01 - Elevation of levels of liver transaminase levels Status: Acute Assessment and Plan: * AST/ALT 161/316, alk phos 196 from 04/23/22 * RUQ ultrasound normal * Hep panel negative * Appears that enzymes were elevated last time as well * Continue to trend labs * Hold Tylenol for now (6) Tobacco dependence: Code(s): F17.200 - Nicotine dependence, unspecified, uncomplicated Status: Acute Assessment and Plan: * Continued smoking * Nicotine patch PRN * Gum PRN when able to take PO * Smoking cessation provided >8mins (7) Hypertension: Code(s): I10 - Essential (primary) hypertension Status: Acute Assessment and Plan: * BP appears to be 149/66 * No home medications * Probably related to disease process and pain * Continue to trend * Consider medications if remains elevated Time Spent With Patient Time with patient: Greater than 35 minutes Subjective Date/time seen: 04/24/22 07:31 Interval history: 04/24/22 04/23/22 1045 Patient stated that her pain is a lot less. She also stated that she started having lots of bowel movements last night and has continued into this morning. She denies any nausea or vomiting and has had her NG tube clamped for quite a while. Did talk to the patient about smoking cessation and also talked to her about diet control. Patient is very concerned that she might and with the ostomy bag however right now that is on the works and I explained her that t
--- NOTE | 2022-04-24 07:31 | PM.IMPN ---
Progress Note: A&P Assessment and Plan (1) SBO (small bowel obstruction): Code(s): K56.609 - Unspecified intestinal obstruction, unspecified as to partial versus complete obstruction Status: Acute Assessment and Plan: Abd xray from 04/22/22 Persistently dilated small bowel, consistent with adynamic ileus versus partial small bowel obstruction. Abd/pel ct?Dilated small bowel, consistent with adynamic ileus versus partial small bowel obstruction, Small sliding hiatal hernia. General surgery consulted WBC down to 7.9 Trend labs Diet advanced to clear liquids Pain medications on board Anti-emetics NS at 100ml/hr, if tolerating fluids ok to stop Trend KUB NG tube removed Sm bowel follow through ?No bowel obstruction with rapid transit of contrast through the normal small bowel reaching the cecum by 15 minutes. (2) Obstructive sleep apnea: Code(s): G47.33 - Obstructive sleep apnea (adult) (pediatric) Status: Chronic Assessment and Plan: Continue home CPAP/BIPAP (3) COPD (chronic obstructive pulmonary disease): Code(s): J44.9 - Chronic obstructive pulmonary disease, unspecified Status: Chronic Assessment and Plan: Continue albuterol treatments PRN No acute exacerbation (4) Anemia: Qualifiers: Anemia type: iron deficiency Iron deficiency anemia type: unspecified iron deficiency Qualified Code(s): D50.9 - Iron deficiency anemia, unspecified Code(s): D64.9 - Anemia, unspecified Status: Acute Assessment and Plan: H/H 12.8/38.7 Remains stable Takes iron at home, will hold for now Continue to trend labs Supplement as appropriate Transfuse as indicated (5) Transaminitis: Code(s): R74.01 - Elevation of levels of liver transaminase levels Status: Acute Assessment and Plan: AST/ALT 161/316, alk phos 196 from 04/23/22 RUQ ultrasound normal Hep panel negative Appears that enzymes were elevated last time as well Continue to trend labs Hold Tylenol for now (6) Tobacco dependence: Code(s): F17.200 - Nicotine dependence, unspecified, uncomplicated Status: Acute Assessment and Plan: Continued smoking Nicotine patch PRN Gum PRN when able to take PO Smoking cessation provided >8mins (7) Hypertension: Code(s): I10 - Essential (primary) hypertension Status: Acute Assessment and Plan: BP appears to be 149/66 No home medications Probably related to disease process and pain Continue to trend Consider medications if remains elevated Time Spent With Patient Time with patient: Greater than 35 minutes Subjective Date/time seen: 04/24/22 07:31 Interval history: 04/24/22 04/23/22 1045 Patient stated that her pain is a lot less. She also stated that she started having lots of bowel movements last night and has continued into this morning. She denies any nausea or vomiting and has had her NG tube clamped for quite a while. Did talk to the patient about smoking cessation and also talked to her about diet control. Patient is very concerned that she might and with the ostomy bag however right now that is on the works and I explained her that that is not the worst right now. Her daughter did call I did talk to her daughter and her daughter stated that she was concerned about the next steps in this is a recurrent issue. I did tell her that we are keeping close eye on her and that our surgeons are still contemplating further procedures however it is not indicated at this time. She currently denies any chest pain, shortness of breath, weakness or fatigue. She is doing well on her feet and walking around. 04/22/22 1115 ? Patient states that she is having a lot of pain however it is better than yesterday.? She has not had any bowel movements since yesterday and she i
[2022-04-24] MEDS: FLUTICASONE/UMECLIDIN/VILANTER 100-62.5-25 MCG ELLIPTA 1 PUFF INHALATION (08:08)
[2022-04-24 08:09] VITALS: O2SAT 92
[2022-04-24] MEDS: POTASSIUM CHLORIDE INJ 40 MEQ in SODIUM CHLORIDE 0.9% IV 500 ML 130 MEQ IVPB (08:28)
[2022-04-24] MEDS: POTASSIUM CHLORIDE 20 MEQ TABLET 40 MEQ PO (08:29)
--- NOTE | 2022-04-24 09:15 | PM.DS ---
DS: Admitting Diagnosis Discharge Date 04/24/22 0915 Admitting Diagnosis Bowel obstruction DS: Discharge Diagnosis Discharge Diagnosis (1) SBO (small bowel obstruction): Code(s): K56.609 - Unspecified intestinal obstruction, unspecified as to partial versus complete obstruction Status: Acute Assessment and Plan: Abd xray from 04/22/22 Persistently dilated small bowel, consistent with adynamic ileus versus partial small bowel obstruction. Abd/pel ct?Dilated small bowel, consistent with adynamic ileus versus partial small bowel obstruction, Small sliding hiatal hernia. General surgery consulted WBC down to 7.9 Trend labs Diet advanced to clear liquids Pain medications on board Anti-emetics NS at 100ml/hr, if tolerating fluids ok to stop Trend KUB NG tube removed Sm bowel follow through ?No bowel obstruction with rapid transit of contrast through the normal small bowel reaching the cecum by 15 minutes. (2) Obstructive sleep apnea: Code(s): G47.33 - Obstructive sleep apnea (adult) (pediatric) Status: Chronic Assessment and Plan: Continue home CPAP/BIPAP (3) COPD (chronic obstructive pulmonary disease): Code(s): J44.9 - Chronic obstructive pulmonary disease, unspecified Status: Chronic Assessment and Plan: Continue albuterol treatments PRN No acute exacerbation (4) Anemia: Qualifiers: Anemia type: iron deficiency Iron deficiency anemia type: unspecified iron deficiency Qualified Code(s): D50.9 - Iron deficiency anemia, unspecified Code(s): D64.9 - Anemia, unspecified Status: Acute Assessment and Plan: H/H 12.8/38.7 Remains stable Takes iron at home, will hold for now Continue to trend labs Supplement as appropriate Transfuse as indicated (5) Transaminitis: Code(s): R74.01 - Elevation of levels of liver transaminase levels Status: Acute Assessment and Plan: AST/ALT 161/316, alk phos 196 from 04/23/22 RUQ ultrasound normal Hep panel negative Appears that enzymes were elevated last time as well Continue to trend labs Hold Tylenol for now (6) Tobacco dependence: Code(s): F17.200 - Nicotine dependence, unspecified, uncomplicated Status: Acute Assessment and Plan: Continued smoking Nicotine patch PRN Gum PRN when able to take PO Smoking cessation provided >8mins (7) Hypertension: Code(s): I10 - Essential (primary) hypertension Status: Acute Assessment and Plan: BP appears to be 149/66 No home medications Probably related to disease process and pain Continue to trend Consider medications if remains elevated DS: Summary Hospital Course Hospital Course: Norberto is a 61 year old female with a past medical history of bowel obstruction, COPD, CHF who presented to the ED with complaints of abdominal pain, nausea and vomiting. Upon arrival CT of the abd/pel showed dilated small bowel consistent with ileus vs bowel obstruction. Xray showed dilated small bowel consistent with ileus vs bowel obstruction. WBC were elevated upon arrival, however, are trending down and currently 7.9. NG was place and hooked to low intermittent suction with lots of output. IV fluids were given and NPO status was started for bowel rest. Pain was medicated for tolerability. Sm bowel follow through did not show any obstruction at this time, and contrast was seen Within the colon at 15 minutes. NG tube was removed and patient was started on a diet. Patient has been tolerating her diet. She was instructed to take MiraLax every day along with Colace and ensure that she does have a bowel movement regularly. she was also instructed to make sure she sticks with a low-fiber diet for a minimum month. she is requesting to a dietitian dietitian had given patient education about food
--- NOTE | 2022-04-24 09:15 | P.DS_ITS ---
DS: Admitting Diagnosis Discharge Date 04/24/22 0915 Admitting Diagnosis Bowel obstruction DS: Discharge Diagnosis Discharge Diagnosis (1) SBO (small bowel obstruction): Code(s): K56.609 - Unspecified intestinal obstruction, unspecified as to partial versus complete obstruction Status: Acute Assessment and Plan: * Abd xray from 04/22/22 Persistently dilated small bowel, consistent with adynamic ileus versus partial small bowel obstruction. * Abd/pel ct?Dilated small bowel, consistent with adynamic ileus versus partial small bowel obstruction, Small sliding hiatal hernia. * General surgery consulted * WBC down to 7.9 * Trend labs * Diet advanced to clear liquids * Pain medications on board * Anti-emetics * NS at 100ml/hr, if tolerating fluids ok to stop * Trend KUB * NG tube removed * Sm bowel follow through ?No bowel obstruction with rapid transit of contrast through the normal small bowel reaching the cecum by 15 minutes. (2) Obstructive sleep apnea: Code(s): G47.33 - Obstructive sleep apnea (adult) (pediatric) Status: Chronic Assessment and Plan: * Continue home CPAP/BIPAP (3) COPD (chronic obstructive pulmonary disease): Code(s): J44.9 - Chronic obstructive pulmonary disease, unspecified Status: Chronic Assessment and Plan: * Continue albuterol treatments PRN * No acute exacerbation (4) Anemia: Qualifiers: Anemia type: iron deficiency Iron deficiency anemia type: unspecified iron deficiency Qualified Code(s): D50.9 - Iron deficiency anemia, unspecified Code(s): D64.9 - Anemia, unspecified Status: Acute Assessment and Plan: * H/H 12.8/38.7 * Remains stable * Takes iron at home, will hold for now * Continue to trend labs * Supplement as appropriate * Transfuse as indicated (5) Transaminitis: Code(s): R74.01 - Elevation of levels of liver transaminase levels Status: Acute Assessment and Plan: * AST/ALT 161/316, alk phos 196 from 04/23/22 * RUQ ultrasound normal * Hep panel negative * Appears that enzymes were elevated last time as well * Continue to trend labs * Hold Tylenol for now (6) Tobacco dependence: Code(s): F17.200 - Nicotine dependence, unspecified, uncomplicated Status: Acute Assessment and Plan: * Continued smoking * Nicotine patch PRN * Gum PRN when able to take PO * Smoking cessation provided >8mins (7) Hypertension: Code(s): I10 - Essential (primary) hypertension Status: Acute Assessment and Plan: * BP appears to be 149/66 * No home medications * Probably related to disease process and pain * Continue to trend * Consider medications if remains elevated DS: Summary Hospital Course Hospital Course: Norberto is a 61 year old female with a past medical history of bowel obstruction, COPD, CHF who presented to the ED with complaints of abdominal pain, nausea and vomiting. Upon arrival CT of the abd/pel showed dilated small bowel consistent with ileus vs bowel obstruction. Xray showed dilated small bowel consistent with ileus vs bowel obstruction. WBC were elevated upon arrival, however, are trending down and currently 7.9. NG was place and hooked to low intermittent suction with lots of
--- NOTE | 2022-04-24 12:57 | PCNSR ---
On 04/24/22, the student, Nydia Greenwood, provided care and completed [facility] documentation on this patient. I have reviewed the student's documentation and agree with the findings.
[2022-04-24 14:00] VITALS: BP 154/82; PULSE 58; RESP 22; TEMP 36.2; O2SAT 99
--- NOTE | 2022-04-24 16:25 | PM.PNGS ---
Progress Note: A&P Assessment and Plan (1) SBO (small bowel obstruction): Code(s): K56.609 - Unspecified intestinal obstruction, unspecified as to partial versus complete obstruction Status: Acute Assessment and Plan: Resolved. Bowels are moving and tolerating a solid diet. Okay to discharge from a surgical standpoint. No follow-up needed. Continue a low-fiber diet for at least a month. Recommended taking MiraLax b.i.d. for the next few days. May decrease MiraLax to once daily when having more than 3 bowel movements daily. Discussed options for laxatives as needed for any constipation. (2) COPD (chronic obstructive pulmonary disease): Code(s): J44.9 - Chronic obstructive pulmonary disease, unspecified Status: Chronic (3) MARÍA (iron deficiency anemia): Code(s): D50.9 - Iron deficiency anemia, unspecified Status: Chronic (4) B12 deficiency: Code(s): E53.8 - Deficiency of other specified B group vitamins Status: Chronic Plan I have discussed the patient's case and plan of care with Dr. Uribe. Subjective Subjective Date/Time Seen: 04/24/22 16:25 Patient reports: no new complaints, feels better, pain is less, tolerating a regular diet, flatus and bowel movement Interval history: Patient seen and examined. Denies any abdominal pain, nausea, or vomiting. Feels her bloating has resolved. Review of Systems Review of Systems: All systems reviewed & are unremarkable except as noted in HPI and below Exam Const: General: comfortable, no acute distress and awake Orientation/consciousness: patient oriented x3 GI: Inspection: non-distended GI Palp: Yes Soft to palpation, No Tenderness to palpation present (GI), No Guarding due to palpation present (GI) and No Rebound tenderness present Auscultation: normal bowel sounds Objective Data Vital Signs Vital Signs: Vital Signs - 24 hr 04/23/22 21:42 04/23/22 20:00 04/24/22 06:00 Temperature 97.1 F L 97.8 F Pulse Rate 57 L 72 Respiratory Rate 16 20 Blood Pressure 152/64 H 149/66 H Pulse Oximetry 96 96 96 Oxygen Delivery Room Air Oxygen Flow Rate 04/24/22 08:09 04/24/22 08:00 04/24/22 14:00 Temperature 97.1 F L Pulse Rate 58 L Respiratory Rate 22 H Blood Pressure 154/82 H Pulse Oximetry 92 99 Oxygen Delivery Nasal Cannula Room Air Oxygen Flow Rate 2 Intake/Output Intake/Output: Intake & Output 04/21/22 04/22/22 04/23/22 04/24/22 23:59 23:59 23:59 23:59 Intake Total 4100 2600 3080 1170 Output Total 800 3001 1000 Balance 3300 -401 2080 1170 Meds/Results Medications: Active Medications Generic Name Dose Route Start Last Admin Trade Name Freq PRN Reason Stop Dose Admin Albuterol 2.5 mg 04/21/22 14:51 Albuterol Sulfate Neb 2.5 Mg/3 Ml Inh INHALATION Q6HRT PRN Shortness Of Breath Enoxaparin Sodium 40 mg 04/22/22 09:00 04/24/22 08:35 Enoxaparin 40 Mg/0.4 Ml Syringe SUB-Q Not Given DAILY ARELI Fluticasone/Umeclidinium/Vilanterol 1 puff 04/22/22 08:00 04/24/22 08:08 Fluticasone/Umeclidin/Vilanter 100-62.5-25 Mcg Ellipta INHALATION 1 puff DAILYRT ARELI Administration Hydromorphone HCl 0.5 mg 04/21/22 05:41 04/22/22 20:59 Hydromorphone Hcl Inj (*Crx) 1 Mg/Ml Syr IV PUSH 0.5 mg Q4H PRN Administration Pain Rated 7-10 Sodium Chloride 1,000 mls @ 100 mls/hr 04/21/22 05:45 04/24/22 04:49 Normal Saline Iv IV CONT 100 mls/hr .Q10H ARELI Administration Nicotine 1 patch 04/23/22 07:47 Nicotine (*Pbkc) 21 Mg Patch TRANSDERM QAM PRN tobacco withdrawal Ondansetron HCl 4 mg 04/21/22 05:41 04/21/22 17:04 Ondansetron Inj 4 Mg/2 Ml Vial IV PUSH 4 mg Q4H PRN Administration Nausea Radiology Results: ITS Impressions Abdomen/Pelvis CT 04/21/22 08:48 IMPRESSION: 1. Dilated small bowel, consistent with adynamic ileus versus partial small bowel obstruction. 2. Small sliding hiatal hernia.
== END 2022-04-24 16:20 | disposition home or self-care (01) | DRG 389 ==
LOC: ANHED 05:44 → ANH3MEDSUR 05:53
PROVIDERS: Nurse Practitioner Family; Admitting Provider Internal Medicine; Emergency Provider General Practice; PCP Emergency Medicine; Visit Provider Nurse Practitioner
DX: K56.609 Unspecified intestinal obstruction, unspecified as to partial versus complete obstruction (principal); J96.11 Chronic respiratory failure with hypoxia; D50.9 Iron deficiency anemia, unspecified; E78.5 Hyperlipidemia, unspecified; E03.9 Hypothyroidism, unspecified; E55.9 Vitamin D deficiency, unspecified; E53.8 Deficiency of other specified B group vitamins; F17.210 Nicotine dependence, cigarettes, uncomplicated; F41.8 Other specified anxiety disorders; G62.9 Polyneuropathy, unspecified; G47.33 Obstructive sleep apnea (adult) (pediatric); G25.81 Restless legs syndrome; G89.29 Other chronic pain; I11.0 Hypertensive heart disease with heart failure; I50.9 Heart failure, unspecified; J44.9 Chronic obstructive pulmonary disease, unspecified; K44.9 Diaphragmatic hernia without obstruction or gangrene; K21.9 Gastro-esophageal reflux disease without esophagitis; M41.9 Scoliosis, unspecified; R74.01 Elevation of levels of liver transaminase levels; Z88.0 Allergy status to penicillin; Z98.41 Cataract extraction status, right eye; Z98.42 Cataract extraction status, left eye; Z90.49 Acquired absence of other specified parts of digestive tract; Z90.710 Acquired absence of both cervix and uterus; Z99.81 Dependence on supplemental oxygen
CPT/HCPCS: 36415; 74018; 74177; 74250; 76705; 80048; 80053; 80074; 81001; 83690; 85025; 85027; 94640; 96361; 96374; 96375; 96376; 99285; A9270; J0131; J1170; J1650; J2270; J2405; J3480; J7030; J7040; J7120; Q9967

== ENCOUNTER 2022-07-31 12:02 | Outpatient (CLI) | payer MEDICARE, MEDICAID, SELFPAY ==
[2022-07-31 12:31] LABS: Alanine Aminotransferase 26 U/L (6-35); Albumin Level 4.1 g/dL (3.5-5.1); Alkaline Phosphatase 106 U/L (38-126); Anion Gap 5 mmol/L (8-16); Aspartate Amino Transferase 27 U/L (14-36); Bilirubin,Total 0.2 mg/dL (0.2-1.3); Blood Urea Nitrogen 15 mg/dL (7-17); Calcium 8.8 mg/dL (8.4-10.2); Carbon Dioxide 31 mmol/L (22-30); Chloride 103 mmol/L (98-107); Estimated Glomerular Filt Rate > 60; Glucose 78 mg/dL (65-110); Potassium 4.2 mmol/L (3.4-5.0); Sodium 139 mmol/L (137-145)
[2022-08-03 12:13] LABS: Vitamin D 1,25 (OH)2 Total 59 pg/mL (18-72); Vitamin D2 1,25 (OH)2 <8 pg/mL; Vitamin D3 1,25 (OH)2 59 pg/mL
== END 2022-07-31 12:03 | disposition home or self-care (01) ==
PROVIDERS: PCP Emergency Medicine; Visit Provider Emergency Medicine
DX: Z13.6 Encounter for screening for cardiovascular disorders (principal); E55.9 Vitamin D deficiency, unspecified
CPT/HCPCS: 36415; 80053; 82652

== ENCOUNTER 2022-08-13 22:45 | Inpatient (IN) | payer MEDICARE, MEDICAID, SELFPAY ==
--- NOTE | ~2022-08-13 | CT_ITS ---
EXAMINATION: CT abdomen pelvis w con DATE: 08/14/2022 00:12 INDICATION: Abdominal pain. TECHNIQUE: Computed tomography (CT) of the abdomen and pelvis was performed with 100 mL Omnipaque 350 intravenous contrast. Automated exposure control and iterative reconstruction technique were employe d. The dose-length product was 552.74 mGy-cm. COMPARISON: CT abdomen and pelvis 04/21/2022 FINDINGS: The visualized portions of the lung bases demonstrate mild atelectasis. Emphysema is noted. The heart size is normal. No pericardial effusion. There are changes of cholecystectomy. There is ch ronic mild intrahepatic biliary duct dilatation. The common duct is dilated to 11 mm without change. These findings are likely not clinically significant given the normal liver function tests. The splee n, pancreas, and adrenal glands are normal. There are cysts in the kidneys measuring up to 2.9 cm on the right. There is an anastomosis in the rectum. The appendix is normal. There are multiple dilated loops of small bowel with transition point at an anastomosis in distal small bowel. There are no path ologically enlarged lymph nodes. There is no free intraperitoneal fluid. There is mild lumbar spondyl osis. IMPRESSION: 1. Small bowel obstruction with transition point at an anastomosis in the distal ileum. Reviewed, dictated and finalized at location A. LLMENT REPRESENTATIVE IMPRESSION: 1. Small bowel obstruction with transition point at an anastomosis in the dista l ileum.
--- NOTE | ~2022-08-13 | XR_ITS ---
EXAMINATION: XR abdomen obstructive series DATE: 08/14/2022 08:31 INDICATION: Small bowel obstruction. TECHNIQUE: Upright and supine views of the abdomen on 3 radiographs were obtained. COMPARISON: CT abdomen and pelvis 08/13/2022 FINDINGS: There are dilated loops of small bowel. The colon is decompressed. The nasogastric tube tip is in the stomach. No free intraperitoneal gas. Surgical clips in the right upper quadrant are likel y from cholecystectomy. There is contrast in the bladder. IMPRESSION: 1. Persistently dilated small bowel, consistent with small bowel obstruction. Reviewed, dictated and finalized at location A. NG MACHINE OPERATOR FLOORPERSON
--- NOTE | ~2022-08-13 | XR_ITS ---
Portable chest x-ray Comparison: 04/05/2022 Clinical History: Cough Findings: NG tube in satisfactory position. There is mild bibasilar hazy airspace disease. There is additional linear bibasilar scarring. Cardiomediastinal silhouette is stable. Bones and soft tissues are unremarkable. Impression: NG tube in satisfactory position. Mild probable bibasilar pulmonary edema with additional linear bibasilar scarring. Reviewed, dictated and finalized at location [] MOTIVE SERVICE MANAGER Impression: NG tube in satisfactory position. Mild probable bibasilar pulmonary edema with additional linear bibasilar scarri ng.
--- NOTE | ~2022-08-13 | XR_ITS ---
EXAMINATION: XR abdomen NG/feed tube insert DATE: 08/14/2022 00:46 INDICATION: Nasogastric tube placement. TECHNIQUE: An upright view of the abdomen was obtained. COMPARISON: Small bowel series 04/23/2022, CT abdomen and pelvis 08/13/2022 FINDINGS: The lower abdomen is excluded. The nasogastric tube tip is in the stomach. Surgical clips i n the right upper quadrant are likely from cholecystectomy. There is mild atelectasis in the lower phill ng zones. There are old healed bilateral rib fractures. IMPRESSION: 1. Nasogastric tube tip is in the stomach. Reviewed, dictated and finalized at location A. LDER SAWYER
--- NOTE | ~2022-08-13 | XR_ITS ---
EXAMINATION: XR abdomen obstructive series DATE: 08/15/2022 06:04 INDICATION: Small bowel obstruction. TECHNIQUE: Upright and supine views of the abdomen on 3 radiographs were obtained. COMPARISON: CT abdomen and pelvis 08/13/2022 FINDINGS: There are dilated loops of small bowel. The colon is normal in caliber. Surgical clips in t he right upper quadrant are likely from cholecystectomy. The nasogastric tube tip is in the stomach. No free intraperitoneal gas. There is a prominent paracardial fat pad on the left. There are old heal ed bilateral rib fractures. IMPRESSION: 1. Persistently dilated small bowel, consistent with small bowel obstruction. Reviewed, dictated and finalized at location A. EAU ARCHITECT
[2022-08-13 22:49] VITALS: BP 130/50; PULSE 99; RESP 16; TEMP 36.2; O2SAT 93
[2022-08-13 23:10] LABS: Basophils Absolute Auto 0.1 K/mm3 (0.0-0.1); Basophils Percent Auto 0.3 % (0.2-1.2); Eosinophils Absolute Auto 0.1 K/mm3 (0-0.3); Eosinophils Percent Auto 0.5 % (0-4.4); Hematocrit 43.8 % (37.0-47.0); Hemoglobin 14.5 g/dL (12.0-15.0); Immature Granulocyte Absolute 0.09 K/mm3 (0.00-0.031); Immature Granulocyte Percent A 0.5 % (0-0.5); Lymphocytes Absolute Auto 3.37 K/mm3 (0.9-3.2); Lymphocytes Percent Auto 17.4 % (18.3-44.2); Mean Corpuscular HGB Conc 33.1 g/dl (32-36); Mean Corpuscular Hemoglobin 31.4 pg (26-34); Mean Corpuscular Volume 94.8 fl (80-100); Mean Platelet Volume 9.7 fl (7.4-10.4); Monocytes Absolute Auto 0.9 K/mm3 (0.1-0.6); Monocytes Percent Auto 4.5 % (2.6-8.5); Neutrophils Absolute Auto 14.9 K/mm3 (1.3-6.7); Neutrophils Percent Auto 76.8 % (45.5-73.1); Platelet Count Result 313 k/mm3 (150-375); Red Blood Count 4.62 M/mm3 (4.2-5.4); Red Cell Distribution Width 13.8 % (11.5-14.5); White Blood Count 19.4 K/mm3 (4.5-10.0)
[2022-08-13 23:20] LABS: Alanine Aminotransferase 20 U/L (6-35); Albumin Level 4.7 g/dL (3.5-5.1); Alkaline Phosphatase 123 U/L (38-126); Anion Gap 9 mmol/L (8-16); Aspartate Amino Transferase 29 U/L (14-36); Bilirubin,Total 0.4 mg/dL (0.2-1.3); Blood Urea Nitrogen 16 mg/dL (7-17); Calcium 9.4 mg/dL (8.4-10.2); Carbon Dioxide 24 mmol/L (22-30); Chloride 103 mmol/L (98-107); Estimated CRCL calculation 80 ml/min; Estimated Glomerular Filt Rate > 60; Glucose 162 mg/dL (65-110); Lipase 46 U/L (23-300); Potassium 3.9 mmol/L (3.4-5.0); Sodium 136 mmol/L (137-145)
--- NOTE | 2022-08-13 23:20 | ED.GENADULT ---
HPI - General Adult General Chief complaint: Abdominal Pain Stated complaint: hx of bowel obstruction with abdominal pain Time Seen by Provider: 08/13/22 23:10 History of Present Illness HPI narrative: This is a 61-year-old female presenting ED with chief complaint abdominal pain. Patient says that she started to have abdominal pain at 5:30 a.m. this morning. It is a cramping pain that is diffuse, nonradiating 10 out 10 intensity and comes and goes. She says this feels similar to small-bowel obstruction she has had in the past. There are no exacerbating or alleviating factors. Her last bowel movement was this morning where she had 2 episodes of diarrhea. Her last meal was at 5:30 p.m. where she had chicken nuggets with fried mushrooms. She has not vomited since she ate those chicken nuggets although she has felt nauseous. The patient denies fever, chills, chest pain, difficulty breathing or urinary symptoms. Last flatus was this morning during a bowel movement. Related Data Home Medications Medication Instructions Recorded Confirmed albuterol sulfate 90 mcg/actuation 2 inhalation inhalation Q4H PRN 09/21/19 07/31/22 aerosol inhaler (ProAir HFA) Shortness Of Breath Or Wheezing modafinil 200 mg tablet 200 mg PO QAM 09/21/19 07/31/22 fluticasone fur. 100 mcg-umeclid 1 inh inhalation DAILY 03/28/22 07/31/22 62.5 mcg-vilant 25 mcg inhalat.powder (Trelegy Ellipta) Allergies Allergy/AdvReac Type Severity Reaction Status Date / Time latex Allergy Unknown unknown Verified 08/13/22 22:46 Penicillins Allergy Unknown unknown Verified 08/13/22 22:46 Review of Systems Review of Systems: CONSTITUTIONAL: Denies night sweats. EYES: No eye pain ENT: Denies rhinorrhea CARDIOVASCULAR: Denies palpitations RESPIRATORY: Denies hemoptysis GASTROINTESTINAL: Denies hematemesis GENITOURINARY: Denies hematuria. SKIN: Denies rash MUSCULOSKELETAL: Denies myalgia. NEUROLOGIC: Denies weakness. PSYCHIATRIC: Denies delusions PMFSH Past Medical History Medical History Chronic anemia (Unknown) Chronic back pain Chronic obstructive pulmonary disease (Unknown) Chronic respiratory failure with hypoxia On 2 liters nasal cannula p.r.n. Depression with anxiety Dyslipidemia Gastroesophageal reflux disease (Unknown) History of vaginal delivery Hypothyroidism Migraine headache Obstructive sleep apnea Peripheral neuropathy Restless leg syndrome, controlled Scoliosis Small bowel obstruction due to adhesions Previous, multiple admissions for such. Vitamin D deficiency Surgical History Surgical History Bladder prolapse Repair of bladder prolapse. History of bilateral cataract extraction History of bowel resection 2009 low anterior resection History of cholecystectomy Open cholecystectomy History of colostomy History of colostomy reversal History of eye surgery Treatment of amblyopia. History of hysterectomy History of neck surgery History of tonsillectomy and adenoidectomy Rectal prolapse Rectal prolapse repair. Status post small bowel resection (~01/2019) Exploratory laparotomy with resection of 36 centimeters of the small bowel with extensive adhesiolysis and ileal-ileal anastomosis. [place] teeth removed Family History Family History Father Cirrhosis Alcoholism Mother Emphysema of lung Alcoholism Social History Social History Social History: The patient lives in [place] with her significant other, Luis Fernando. 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 She smoked about a pack of cigarettes per day for > 30 years and quit in 2018. She denies alcohol and illicit substance abuse. She designates her son, Rohit, as her surrogate decision maker and she wishes to be a full code. Smoking packs per day: 0.5 Smo
[2022-08-13 23:36] LABS: Add Urine Microscopic? YES; Appearance Urine Clear (Clear); Bilirubin Urine Negative (Negative); Blood Urine 2+ (Negative); Color Urine Yellow (Yellow); Glucose Urine UA Negative (Negative); Ketones Urine Trace mg/dL (Negative); Leukocyte Esterase Ur Negative LEU/UL (Negative); Nitrate Urine Negative (Negative); Protein Urine Trace mg/dL (Negative); Specific Grav Ur >= 1.030 (1.001-1.035); Urobilinogen Urine 0.2 mg/dL (<2.0); pH Urine 5.5 (5.0-9.0)
[2022-08-13 23:44] LABS: Bacteria Urine Trace /hpf; Mucus Urine Few /lpf; Squamous Epithelial Cell Urine Occasional /hpf (Few); WBC Urine 0-3 /hpf
[2022-08-13] MEDS: FAMOTIDINE 20 MG/2 ML VIAL IV PUSH (23:44)
[2022-08-13] MEDS: ONDANSETRON INJ 4 MG/2 ML VIAL IV PUSH (23:44)
[2022-08-13] MEDS: HYDROmorphone HCL INJ (*CRX) 1 MG/ML SYR 0.5 MG IV PUSH (23:44)
[2022-08-13] MEDS: SODIUM CHLORIDE 0.9% IV 1,000 ML 999 ML IV CONT (23:45)
[2022-08-14] VITALS (7 sets, daily range): BP systolic 116–140; BP diastolic 58–88; PULSE 75–88; RESP 16–18; TEMP 36.6–37.1; O2SAT 93–99; BMI 30.1
[2022-08-14 00:27] LABS: Influenza A QL RT-PCR Negative (Negative); Influenza B QL RT-PCR Negative (Negative); SARS-CoV-2 RNA PCR Negative
[2022-08-14] MEDS: ONDANSETRON INJ 4 MG/2 ML VIAL IV PUSH (02:31)
[2022-08-14] MEDS: PROCHLORPERAZINE EDISYLATE 10 MG/2 ML VIAL IV PUSH (04:46)
[2022-08-14] MEDS: HYDROmorphone HCL INJ (*CRX) 1 MG/ML SYR 0.5 MG IV PUSH ×2 (04:46→09:26)
--- NOTE | 2022-08-14 07:39 | PM.IMHP ---
H&P: HPI History of Present Illness Date/Time: 08/14/22 07:39 Chief Complaint: abdominal pain Narrative: This is a 61-year-old female presenting ED with chief complaint abdominal pain crampy started last night.? She was having some does stool yesterday.? Couple of episodes.? This followed up with crampy abdominal pain yesterday and 1 episode vomiting.? Abdominal pain was more periumbilical in the on the right side.? She came into ED for evaluation found to small-bowel obstruction she is getting admitted for further evaluation she already had another bout of bowel movement this morning which was moves.? No blood in the stool. Review of Systems Review of Systems: - CONSTITUTIONAL: Denies weight loss, fever and chills. - HEENT: Denies changes in vision and hearing - RESPIRATORY: Reports SOB and cough? Which is ongoing since a month. - CV: Denies palpitations and CP. - GI:? reports abdominal pain, nausea, vomiting and? reports diarrhea. - : Denies dysuria and urinary frequency. - MSK: Denies myalgia and joint pain. - SKIN: Denies rash and pruritus. - NEUROLOGICAL: Denies headache and syncope. - PSYCHIATRIC: Denies recent changes in mood. Denies anxiety and depression. ? PMFSH Past Medical History Medical History Chronic anemia (Unknown) Chronic back pain Chronic obstructive pulmonary disease (Unknown) Chronic respiratory failure with hypoxia On 2 liters nasal cannula p.r.n. Depression with anxiety Dyslipidemia Gastroesophageal reflux disease (Unknown) History of vaginal delivery Hypothyroidism Migraine headache Obstructive sleep apnea Peripheral neuropathy Restless leg syndrome, controlled Scoliosis Small bowel obstruction due to adhesions Previous, multiple admissions for such. Vitamin D deficiency Surgical History Surgical History Bladder prolapse Repair of bladder prolapse. History of bilateral cataract extraction History of bowel resection 2009 low anterior resection History of cholecystectomy Open cholecystectomy History of colostomy History of colostomy reversal History of eye surgery Treatment of amblyopia. History of hysterectomy History of neck surgery History of tonsillectomy and adenoidectomy Rectal prolapse Rectal prolapse repair. Status post small bowel resection (~01/2019) Exploratory laparotomy with resection of 36 centimeters of the small bowel with extensive adhesiolysis and ileal-ileal anastomosis. [place] teeth removed Family History Family History Father Cirrhosis Alcoholism Mother Emphysema of lung Alcoholism Social History Social History Social History: The patient lives in [place] with her significant other, Luis Fernando. 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 She smoked about a pack of cigarettes per day for > 30 years and quit in 2018. She denies alcohol and illicit substance abuse. She designates her son, Rohit, as her surrogate decision maker and she wishes to be a full code. Smoking packs per day: 0.5 Smoking cigarettes per day: 10.0 Years smoked: 40 Smoking pack-years: 20.00 Smoking status: Current every day smoker Tobacco type: cigarettes Second hand tobacco smoke exposure: Yes Alcohol intake: never Substance use: never Substance use type: does not use Lack of Transportation: No Lack of Food: Never True Current Housing: I Have Housing Concerned About Future Housing: No Difficulty Paying Gas/Electric Bills: No Difficulty Paying for Meds: No Currently Unemployed: No Education: Grade School Difficulty w/ Childcare or Family Care: No Gender identity (if verbalized by the patient): Female Sexual Orientation (if Verbalized by the Patient): Straight or Heterosexual Spiritual care concerns: No Agr
--- NOTE | 2022-08-14 08:22 | PM.IMHP ---
H&P: HPI History of Present Illness Date/Time: 08/14/22 08:22 [facility] Past Medical History Medical History Chronic anemia (Unknown) Chronic back pain Chronic obstructive pulmonary disease (Unknown) Chronic respiratory failure with hypoxia On 2 liters nasal cannula p.r.n. Depression with anxiety Dyslipidemia Gastroesophageal reflux disease (Unknown) History of vaginal delivery Hypothyroidism Migraine headache Obstructive sleep apnea Peripheral neuropathy Restless leg syndrome, controlled Scoliosis Small bowel obstruction due to adhesions Previous, multiple admissions for such. Vitamin D deficiency Surgical History Surgical History Bladder prolapse Repair of bladder prolapse. History of bilateral cataract extraction History of bowel resection 2009 low anterior resection History of cholecystectomy Open cholecystectomy History of colostomy History of colostomy reversal History of eye surgery Treatment of amblyopia. History of hysterectomy History of neck surgery History of tonsillectomy and adenoidectomy Rectal prolapse Rectal prolapse repair. Status post small bowel resection (~01/2019) Exploratory laparotomy with resection of 36 centimeters of the small bowel with extensive adhesiolysis and ileal-ileal anastomosis. Temple teeth removed Family History Family History Father Cirrhosis Alcoholism Mother Emphysema of lung Alcoholism Social History Social History Social History: The patient lives in [place] with her significant other, Luis Fernando. 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 She smoked about a pack of cigarettes per day for > 30 years and quit in 2018. She denies alcohol and illicit substance abuse. She designates her son, Rohit, as her surrogate decision maker and she wishes to be a full code. Smoking packs per day: 0.5 Smoking cigarettes per day: 10.0 Years smoked: 40 Smoking pack-years: 20.00 Smoking status: Current every day smoker Tobacco type: cigarettes Second hand tobacco smoke exposure: Yes Alcohol intake: never Substance use: never Substance use type: does not use Gender identity (if verbalized by the patient): Female Sexual Orientation (if Verbalized by the Patient): Straight or Heterosexual Spiritual care concerns: No Agree to blood products: Yes Meds Home Medications and Allergies Home Medications Medication Instructions Recorded Confirmed Type albuterol sulfate 90 mcg/actuation 2 inhalation inhalation Q4H PRN 09/21/19 07/31/22 History aerosol inhaler (ProAir HFA) Shortness Of Breath Or Wheezing modafinil 200 mg tablet 200 mg PO QAM 09/21/19 07/31/22 History fluticasone fur. 100 mcg-umeclid 1 inh inhalation DAILY 03/28/22 07/31/22 History 62.5 mcg-vilant 25 mcg inhalat.powder (Trelegy Ellipta) triamcinolone acetonide 0.1 % 1 applic topical BID PRN external 03/28/22 07/31/22 Rx topical cream vaginal irritation #30 grams docusate sodium 100 mg capsule 100 mg PO BID #60 caps 04/24/22 07/31/22 Rx (Colace) magnesium hydroxide 400 mg/5 mL 5 ml PO HS PRN constipation #355 mL 04/24/22 07/31/22 Rx oral suspension (Milk of Magnesia) varenicline 0.5 mg (11)-1 mg (42) See Rx Instructions PO .COMPLEX 04/24/22 07/31/22 Rx tablets in a dose pack #53 ea tramadol 50 mg tablet 50 mg PO Q6H PRN pain #60 tabs 05/22/22 07/31/22 Rx pantoprazole 20 mg tablet,delayed See Rx Instructions .Route 06/04/22 07/31/22 Rx release .COMPLEX #90 tabs azithromycin 250 mg tablet See Rx Instructions PO .COMPLEX #6 08/06/22 Rx (Zithromax Z-Qasim) tabs cyclobenzaprine 5 mg tablet 5 mg PO TID PRN muscle spasm #60 08/06/22 Rx tabs Allergies Allergy/AdvReac Type Severity Reaction Status Date / Time latex Allergy Unknown unknown Verified 1
[2022-08-14 09:09] LABS: Basophils Percent Auto 0.2 % (0.2-1.2); Eosinophils Percent Auto 0.4 % (0-4.4); Hematocrit 42.6 % (37.0-47.0); Hemoglobin 13.9 g/dL (12.0-15.0); Immature Granulocyte Absolute 0.02 K/mm3 (0.00-0.031); Immature Granulocyte Percent A 0.2 % (0-0.5); Lymphocytes Absolute Auto 1.19 K/mm3 (0.9-3.2); Mean Corpuscular HGB Conc 32.6 g/dl (32-36); Mean Corpuscular Hemoglobin 31.3 pg (26-34); Mean Corpuscular Volume 95.9 fl (80-100); Mean Platelet Volume 10.2 fl (7.4-10.4); Monocytes Absolute Auto 0.6 K/mm3 (0.1-0.6); Monocytes Percent Auto 6.8 % (2.6-8.5); Neutrophils Absolute Auto 6.7 K/mm3 (1.3-6.7); Neutrophils Percent Auto 78.4 % (45.5-73.1); Platelet Count Result 270 k/mm3 (150-375); Red Blood Count 4.44 M/mm3 (4.2-5.4); White Blood Count 8.5 K/mm3 (4.5-10.0)
[2022-08-14 09:16] LABS: Anion Gap 6 mmol/L (8-16); Blood Urea Nitrogen 17 mg/dL (7-17); Calcium 8.5 mg/dL (8.4-10.2); Carbon Dioxide 29 mmol/L (22-30); Chloride 104 mmol/L (98-107); Estimated CRCL calculation 80 ml/min; Estimated Glomerular Filt Rate > 60; Glucose 127 mg/dL (65-110); Potassium 3.9 mmol/L (3.4-5.0); Sodium 139 mmol/L (137-145)
[2022-08-14 09:17] LABS: Lactic Acid Reflex 1.9 mmol/L (0.7-2.0); Magnesium 1.9 mg/dL (1.6-2.3)
[2022-08-14] MEDS: LACTATED RINGERS 1,000 ML 125 ML IV CONT (09:17)
--- NOTE | 2022-08-14 09:29 | PM.CNGS ---
Assessment and Plan Assessment and plan (1) SBO (small bowel obstruction): Code(s): K56.609 - Unspecified intestinal obstruction, unspecified as to partial versus complete obstruction Status: Acute Assessment and Plan: CT reviewed and discussed with the patient in detail. There is evidence of a small bowel obstruction with transition point at the anastomosis in the distal ileum. She has had multiple previous major abdominal surgeries with recurrent small bowel obstructions that typically resolve with conservative management. She is a high risk surgical candidate given her surgical history and co-morbidities. We would again recommend to treat this conservatively with NG tube decompression, bowel rest, IV Fluids, and analgesics as needed. She is already showing signs of improvement after having a large BM this morning. Will continue to monitor closely with serial abdominal exams and imaging. Thank you for allowing us to see the patient in consultation and we will continue to follow along with you. (2) COPD (chronic obstructive pulmonary disease): Code(s): J44.9 - Chronic obstructive pulmonary disease, unspecified Status: Acute Assessment and Plan: Discussed with Hospitalist that she has had a cough, wheezing, and some increased shortness of breath with activity over the past month recently treated with azithromycin. She is wheezing on exam this morning. Management per Hospitalist. (3) H/O major abdominal surgery: Code(s): Z98.890 - Other specified postprocedural states Status: Acute Assessment and Plan: Multiple previous abdominal surgeries as listed in HPI. Adhesions is the likely cause of her small bowel obstructions. (4) Obstructive sleep apnea: Code(s): G47.33 - Obstructive sleep apnea (adult) (pediatric) Status: Chronic (5) Chronic respiratory failure with hypoxia: Code(s): J96.11 - Chronic respiratory failure with hypoxia Status: Chronic (6) Chronic anemia: Onset Date: Unknown Code(s): D64.9 - Anemia, unspecified Status: Chronic (7) Obesity (BMI 30-39.9): Code(s): E66.9 - Obesity, unspecified Status: Acute Plan I have discussed the patient's case and plan of care with Dr. Uribe. History of Present Illness Consult details Consult date: 08/14/22 Reason for consult: other (Small bowel obstruction) Requesting physician: Ramesh Locke MD Narrative: This is a 61-year-old woman with multiple previous abdominal surgeries who is well known to our service for multiple previous small bowel obstructions. She was hospitalized here at [facility] from 04/21/22 - 04/24/22 for a small bowel obstruction that resolved with conservative management. At that time, she did have a small bowel follow through that showed rapid transit of contrast to the colon in 15 minutes. Since discharge, she denies any issues or episodes of abdominal pain. She has been following a low fiber diet and taking Miralax daily as instructed. This has been keeping her bowel movements regular and not had any issues. She reports that yesterday around 5:30 pm she had an onset of generalized abdominal pain that was cramping in nature. This was similar to previous small bowel obstructions she has had in the past. No alleviating factors. She had nausea and dry heaving. She does report one episode of emesis that was phlegm and after drinking some soda. Due to her persistent familiar symptoms, she came into the ER for evaluation. CT scan of the abdomen and pelvis showed small bowel obstruction with transition point at the terminal ileum anastomosis. Labs were significant for a WBC count of 19,000. With further questioning, she also reports having a cough and wheezing over the past month. She was tested for COVID and Influenza that were negative as an outpatient. She saw her PCP and started on a Z-pack last Friday, which she finished as prescribed. She does not feel that it has improved her
--- NOTE | 2022-08-14 09:36 | ADMGEN ---
This patient, Rebecca Ricci, was admitted to [facility] Surg Room 303-01 at 0705. Patient/family oriented to hospital policies and general routines including ID bracelet, bed and alarms, visiting hours, pain management, procedures, bathroom and other care routines, personal items, smoking policy, room service/diet, and visiting hours. Information on how to activate the Rapid Response Team has been discussed. Patient/Family are encouraged to report perceived risks to care and to ask questions if they do not understand what they are told or what they should do.
--- NOTE | 2022-08-14 09:51 | PM.IMPN ---
Progress Note: A&P Assessment and Plan (1) SBO (small bowel obstruction): Code(s): K56.609 - Unspecified intestinal obstruction, unspecified as to partial versus complete obstruction Status: Acute (2) COPD (chronic obstructive pulmonary disease): Code(s): J44.9 - Chronic obstructive pulmonary disease, unspecified Status: Acute (3) H/O major abdominal surgery: Code(s): Z98.890 - Other specified postprocedural states Status: Acute (4) URI with cough and congestion: Code(s): J06.9 - Acute upper respiratory infection, unspecified Status: Acute (5) Diarrhea: Code(s): R19.7 - Diarrhea, unspecified Status: Acute (6) Obstructive sleep apnea: Code(s): G47.33 - Obstructive sleep apnea (adult) (pediatric) Status: Chronic (7) Hypertension: Code(s): I10 - Essential (primary) hypertension Status: Acute Plan abdominal pain / nausea /vomiting: CT abdomen with dilated loops of bowel consistent with small-bowel obstruction with transition point At the anastomosis in distal ileum. general surgery consulted. NG tube placed in the ER. NG tube to drain. Reported symptoms of diarrhea suggestive of this partial small-bowel obstruction likely due to mucosal edema from ongoing gastroenteritis. Will get stool studies cough: Ongoing since past month. Will check chest x-ray. Was treated with steroid and azithromycin recently. Likely related to her underlying COPD and ongoing smoking. COVID and flu test came back negative Obstructive sleep apnea on CPAP Chronic respiratory failure with hypoxia on 2 L nasal cannula as needed at home Hypothyroidism Peripheral neuropathy Restless leg syndrome History of bowel obstruction needing this small-bowel resection back in 2019 with extensive adhesiolysis and ileo ileal anastomosis COPD Tobacco abuse Hypertension Congestive heart failure DVT prophylaxis: Lovenox Code status: Full code Subjective Date/time seen: 08/14/22 09:51 Interval history: This is a 61-year-old female presenting ED with chief complaint abdominal pain crampy started last night. She was having some does stool yesterday. Couple of episodes. This followed up with crampy abdominal pain yesterday and 1 episode vomiting. Abdominal pain was more periumbilical in the on the right side. She came into ED for evaluation found to small-bowel obstruction she is getting admitted for further evaluation she already had another bout of bowel movement this morning which was moves. No blood in the stool. Review of Systems Review of Systems: - CONSTITUTIONAL: Denies weight loss, fever and chills. - HEENT: Denies changes in vision and hearing - RESPIRATORY: Reports SOB and cough Which is ongoing since a month. - CV: Denies palpitations and CP. - GI: reports abdominal pain, nausea, vomiting and reports diarrhea. - : Denies dysuria and urinary frequency. - MSK: Denies myalgia and joint pain. - SKIN: Denies rash and pruritus. - NEUROLOGICAL: Denies headache and syncope. - PSYCHIATRIC: Denies recent changes in mood. Denies anxiety and depression. Exam Narrative: APPEARANCE: No apparent distress. alert and oriented x3 Head: atraumatic. normocephalic EYES:? EOMI, PERRLA NECK: Trachea midline RESPIRATORY: No increased rate of breathing, CARDIOVASCULAR: RRR, S1-S2 heard ABDOMINAL:? abdomen is obese, diffuse tenderness with voluntary guarding.? Patient is distractible.? Abdomen is soft MUSCULOSKELETAl: No obvious deformities NEURO: Alert. Moving 4/4 extremities SKIN:: Warm, dry. Normal color PSYCHIATRIC: Normal affect Objective Data Vital Signs Vital Signs: Vital Signs - 24 hr 08/13/22 22:49 08/14/22 06:18 08/14/22 07:19 Temperature 97.1 F L Pulse Rate 99 88 79 Respiratory Rate 16 18 18 Blood Pressure 130/50 L 134/88 140/77 Pulse Oximetry 93 98 99 Oxygen Delivery Room Air Intake/Output Intake/Output: Intake & Ou
[2022-08-14] MEDS: FLUTICASONE/UMECLIDIN/VILANTER 100-62.5-25 MCG ELLIPTA 1 PUFF INHALATION (11:49)
[2022-08-14] MEDS: PANTOPRAZOLE SODIUM IV 40 MG VIAL IV PUSH (12:38)
[2022-08-14] MEDS: MAGNESIUM HYDROXIDE SUSP 30 ML UDC FEED TUBE (16:40)
[2022-08-14 16:47] LABS: Toxigenic C. Diff NEGATIVE (NEGATIVE)
[2022-08-15] VITALS (9 sets, daily range): BP systolic 116–163; BP diastolic 58–86; PULSE 70–99; RESP 16–24; TEMP 36.1–36.6; O2SAT 92–93
[2022-08-15] MEDS: HYDROmorphone HCL INJ (*CRX) 1 MG/ML SYR 0.5 MG IV PUSH (04:56)
[2022-08-15] MEDS: LACTATED RINGERS 1,000 ML 125 ML IV CONT ×2 (06:34→14:28)
[2022-08-15 06:57] LABS: Anion Gap 6 mmol/L (8-16); Blood Urea Nitrogen 15 mg/dL (7-17); Calcium 7.8 mg/dL (8.4-10.2); Carbon Dioxide 28 mmol/L (22-30); Chloride 106 mmol/L (98-107); Estimated CRCL calculation 80 ml/min; Estimated Glomerular Filt Rate > 60; Glucose 100 mg/dL (65-110); Potassium 3.6 mmol/L (3.4-5.0); Sodium 140 mmol/L (137-145)
[2022-08-15] MEDS: modafiniL (*CRX) 200 MG TABLET PO (08:37)
[2022-08-15] MEDS: PANTOPRAZOLE SODIUM IV 40 MG VIAL IV PUSH (08:39)
[2022-08-15] MEDS: ENOXAPARIN 40 MG/0.4 ML SYRINGE SUB-Q (08:39)
[2022-08-15 09:06] LABS: Basophils Percent Auto 0.2 % (0.2-1.2); Eosinophils Absolute Auto 0.1 K/mm3 (0-0.3); Eosinophils Percent Auto 1.2 % (0-4.4); Hematocrit 39.1 % (37.0-47.0); Hemoglobin 12.5 g/dL (12.0-15.0); Immature Granulocyte Absolute 0.04 K/mm3 (0.00-0.031); Immature Granulocyte Percent A 0.4 % (0-0.5); Lymphocytes Absolute Auto 2.63 K/mm3 (0.9-3.2); Lymphocytes Percent Auto 27.2 % (18.3-44.2); Mean Corpuscular Hemoglobin 31.6 pg (26-34); Mean Corpuscular Volume 98.7 fl (80-100); Mean Platelet Volume 10.5 fl (7.4-10.4); Monocytes Absolute Auto 0.7 K/mm3 (0.1-0.6); Monocytes Percent Auto 6.8 % (2.6-8.5); Neutrophils Absolute Auto 6.2 K/mm3 (1.3-6.7); Neutrophils Percent Auto 64.2 % (45.5-73.1); Platelet Count Result 241 k/mm3 (150-375); Red Blood Count 3.96 M/mm3 (4.2-5.4); Red Cell Distribution Width 14.3 % (11.5-14.5); White Blood Count 9.7 K/mm3 (4.5-10.0)
[2022-08-15] MEDS: FLUTICASONE/UMECLIDIN/VILANTER 100-62.5-25 MCG ELLIPTA 1 PUFF INHALATION (09:37)
--- NOTE | 2022-08-15 11:10 | PM.PNGS ---
Progress Note: A&P Assessment and Plan (1) SBO (small bowel obstruction): Code(s): K56.609 - Unspecified intestinal obstruction, unspecified as to partial versus complete obstruction Status: Acute Assessment and Plan: Patient clinically improving. Multiple BMs since last night with 4 already this morning. Obstructive series this morning still has some dilated small bowel, but looks improved with some gas noted in the colon. Will start an NG tube clamping routine and allow sips of clear liquids while clamped. May remove NG tube later today if she tolerates this well. Encouraged to continue walking the halls multiple times through the day. (2) COPD (chronic obstructive pulmonary disease): Code(s): J44.9 - Chronic obstructive pulmonary disease, unspecified Status: Acute (3) H/O major abdominal surgery: Code(s): Z98.890 - Other specified postprocedural states Status: Acute Assessment and Plan: Multiple previous abdominal surgeries as listed in HPI. Adhesions or possibly some narrowing or twisting at the anastomosis could be the cause of her bowel obstructions. See plan above. (4) Obstructive sleep apnea: Code(s): G47.33 - Obstructive sleep apnea (adult) (pediatric) Status: Chronic (5) Chronic respiratory failure with hypoxia: Code(s): J96.11 - Chronic respiratory failure with hypoxia Status: Chronic (6) Chronic anemia: Onset Date: Unknown Code(s): D64.9 - Anemia, unspecified Status: Chronic (7) Obesity (BMI 30-39.9): Code(s): E66.9 - Obesity, unspecified Status: Acute Plan I have discussed the patient's case and plan of care with Dr. Uribe. Subjective Subjective Date/Time Seen: 08/15/22 11:10 Patient reports: no new complaints, feels better, flatus and bowel movement Interval history: Patient seen this morning and has walked in the halls several times already this morning. She had a dose of milk of mag yesterday and had 2 more BMs following that dose last night. She has already had an additional 4 BMs this morning with at least one being very large and formed. She continues to improve daily. She is still having some right-sided abdominal cramping, but continues to improve daily. Her NG has been clamped this morning for walking and she denies any nausea or issues when NG is clamped. Review of Systems Review of Systems: All systems reviewed & are unremarkable except as noted in HPI and below Exam Const: General: no acute distress and awake Nutritional Appearance: overweight Orientation/consciousness: patient oriented x3 GI: Inspection: non-distended and obesity GI Palp: Yes Soft to palpation, Yes Tenderness to palpation present (GI) (mild TTP right mid abdomen), No Guarding due to palpation present (GI) and No Rebound tenderness present Auscultation: Hypoactive bowel sounds present (better today) Extrem: General: normal to inspection and no edema Psych: Mental Status: mental status grossly normal Insight: Good insight present (Psych) Objective Data Vital Signs Vital Signs: Vital Signs - 24 hr 08/14/22 14:00 08/14/22 20:00 08/14/22 22:00 Temperature 98.8 F 97.8 F Pulse Rate 80 80 75 Respiratory Rate 16 16 16 Blood Pressure 138/67 116/58 L Pulse Oximetry 97 97 93 Oxygen Delivery Nasal Cannula Oxygen Flow Rate 2 08/15/22 02:13 08/15/22 06:00 08/15/22 08:45 Temperature 97.8 F 97.3 F L Pulse Rate 75 78 Respiratory Rate 16 18 Blood Pressure 116/58 L 130/83 Pulse Oximetry 93 92 92 Oxygen Delivery Nasal Cannula Oxygen Flow Rate 2 08/15/22 09:40 Temperature Pulse Rate Respiratory Rate Blood Pressure Pulse Oximetry 93 Oxygen Delivery Nasal Cannula Oxygen Flow Rate 2 Intake/Output Intake/Output: Intake & Output 08/12/22 08/13/22 08/14/22 08/15/22 23:59 23:59 23:59 23:59 Intake Total 100 2100 440 Output Total 600 Balance 100 2100 -160 Meds/Results Me
[2022-08-15] MEDS: ALBUTEROL SULFATE (*SP) AEROSOL 1 PUFF 2 PUFF INHALATION (14:36)
--- NOTE | 2022-08-15 14:58 | PM.IMPN ---
Progress Note: A&P Assessment and Plan (1) SBO (small bowel obstruction): Code(s): K56.609 - Unspecified intestinal obstruction, unspecified as to partial versus complete obstruction Status: Acute (2) COPD (chronic obstructive pulmonary disease): Code(s): J44.9 - Chronic obstructive pulmonary disease, unspecified Status: Acute (3) H/O major abdominal surgery: Code(s): Z98.890 - Other specified postprocedural states Status: Acute (4) URI with cough and congestion: Code(s): J06.9 - Acute upper respiratory infection, unspecified Status: Acute (5) Diarrhea: Code(s): R19.7 - Diarrhea, unspecified Status: Acute (6) Obstructive sleep apnea: Code(s): G47.33 - Obstructive sleep apnea (adult) (pediatric) Status: Chronic (7) Hypertension: Code(s): I10 - Essential (primary) hypertension Status: Acute Plan abdominal pain / nausea /vomiting: CT abdomen with dilated loops of bowel consistent with small-bowel obstruction with transition point At the anastomosis in distal ileum. general surgery consulted. NG tube placed in the ER. NG tube to drain. Reported symptoms of diarrhea suggestive of this partial small-bowel obstruction likely due to mucosal edema from ongoing gastroenteritis. stool studies negative so far. clears started per general surgery. cough: Ongoing since past month. cxr with bibasilar scarring. Was treated with steroid and azithromycin recently. Likely related to her underlying COPD and ongoing smoking. COVID and flu test came back negative. will start nebs. give a course of steroid. start prednisone. Obstructive sleep apnea on CPAP Chronic respiratory failure with hypoxia on 2 L nasal cannula as needed at home Hypothyroidism Peripheral neuropathy Restless leg syndrome History of bowel obstruction needing this small-bowel resection back in 2019 with extensive adhesiolysis and ileo ileal anastomosis COPD Tobacco abuse Hypertension Congestive heart failure DVT prophylaxis: Lovenox Code status: Full code Subjective Date/time seen: 08/15/22 14:58 Interval history: This is a 61-year-old female presenting ED with chief complaint abdominal pain crampy started last night. She was having some does stool yesterday. Couple of episodes. This followed up with crampy abdominal pain yesterday and 1 episode vomiting. Abdominal pain was more periumbilical in the on the right side. She came into ED for evaluation found to small-bowel obstruction she is getting admitted for further evaluation she already had another bout of bowel movement this morning which was moves. No blood in the stool. 08/15/2022: no overnight events. having frequent bowel movmeents. no nausea, vomitign. started on clears today by the general surgery team. abdominal pain has improved Review of Systems Review of Systems: All systems reviewed & are unremarkable except as noted in HPI and below Exam Narrative: APPEARANCE: No apparent distress. alert and oriented x3 Head: atraumatic. normocephalic EYES:? EOMI, PERRLA NECK: Trachea midline RESPIRATORY: No increased rate of breathing, CARDIOVASCULAR: RRR, S1-S2 heard ABDOMINAL:? abdomen is obese, mild tenderness mostly on right paraumbilical area; Abdomen is soft MUSCULOSKELETAl: No obvious deformities NEURO: Alert. Moving 4/4 extremities SKIN:: Warm, dry. Normal color PSYCHIATRIC: Normal affect Objective Data Vital Signs Vital Signs: Vital Signs - 24 hr 08/14/22 20:00 08/14/22 22:00 08/15/22 02:13 Temperature 97.8 F 97.8 F Pulse Rate 80 75 75 Respiratory Rate 16 16 16 Blood Pressure 116/58 L 116/58 L Pulse Oximetry 97 93 93 Oxygen Delivery Nasal Cannula Oxygen Flow Rate 2 08/15/22 06:00 08/15/22 08:45 08/15/22 09:40 Temperature 97.3 F L Pulse Rate 78 Respiratory Rate 18 Blood Pressure 130/83 Pulse Oximetry 92 92 93 Oxygen Delivery Nasal Cannula Nasal Cannula Oxygen Flow Ra
[2022-08-15] MEDS: predniSONE 20 MG TABLET 40 MG PO (16:33)
[2022-08-15] MEDS: ALBUTEROL SULFATE NEB 2.5 MG/3 ML INH INHALATION (16:48)
[2022-08-15] MEDS: IPRATROPIUM BR 0.02% INH SOLN 0.5 MG/2.5 ML VIAL INHALATION (16:49)
[2022-08-16 02:03] VITALS: PULSE 72; RESP 18
[2022-08-16] MEDS: ALBUTEROL SULFATE NEB 2.5 MG/3 ML INH INHALATION ×2 (02:03→08:35)
[2022-08-16 02:16] VITALS: PULSE 74; RESP 18
[2022-08-16 06:00] VITALS: BP 160/84; PULSE 74; RESP 24; TEMP 36.1; O2SAT 96
[2022-08-16 07:03] LABS: Basophils Percent Auto 0.2 % (0.2-1.2); Eosinophils Percent Auto 0.2 % (0-4.4); Hematocrit 37.7 % (37.0-47.0); Hemoglobin 12.4 g/dL (12.0-15.0); Immature Granulocyte Absolute 0.03 K/mm3 (0.00-0.031); Immature Granulocyte Percent A 0.3 % (0-0.5); Lymphocytes Absolute Auto 2.92 K/mm3 (0.9-3.2); Lymphocytes Percent Auto 30.4 % (18.3-44.2); Mean Corpuscular HGB Conc 32.9 g/dl (32-36); Mean Corpuscular Volume 94.3 fl (80-100); Mean Platelet Volume 10.3 fl (7.4-10.4); Monocytes Absolute Auto 0.7 K/mm3 (0.1-0.6); Monocytes Percent Auto 7.2 % (2.6-8.5); Neutrophils Absolute Auto 5.9 K/mm3 (1.3-6.7); Neutrophils Percent Auto 61.7 % (45.5-73.1); Platelet Count Result 265 k/mm3 (150-375); Red Cell Distribution Width 13.5 % (11.5-14.5); White Blood Count 9.6 K/mm3 (4.5-10.0)
[2022-08-16 07:23] LABS: Alanine Aminotransferase 126 U/L (6-35); Alkaline Phosphatase 129 U/L (38-126); Anion Gap 7 mmol/L (8-16); Aspartate Amino Transferase 70 U/L (14-36); Bilirubin,Total 0.4 mg/dL (0.2-1.3); Blood Urea Nitrogen 5 mg/dL (7-17); Calcium 8.8 mg/dL (8.4-10.2); Carbon Dioxide 27 mmol/L (22-30); Chloride 108 mmol/L (98-107); Estimated CRCL calculation 94 ml/min; Estimated Glomerular Filt Rate > 60; Glucose 104 mg/dL (65-110); Potassium 3.4 mmol/L (3.4-5.0); Sodium 142 mmol/L (137-145)
[2022-08-16 07:47] VITALS: O2SAT 96
[2022-08-16] MEDS: IPRATROPIUM BR 0.02% INH SOLN 0.5 MG/2.5 ML VIAL INHALATION (08:35)
--- NOTE | 2022-08-16 08:35 | PM.PNGS ---
Progress Note: A&P Assessment and Plan (1) SBO (small bowel obstruction): Code(s): K56.609 - Unspecified intestinal obstruction, unspecified as to partial versus complete obstruction Status: Acute Assessment and Plan: Patient clinically improving. She had Multiple BMs since last night MN. X-rays yesterday still shows some dilated small bowel but definite gas in the colon and patient not having either cramping pain or distension. NG tube Removed yesterday afternoon and patient started on clears. She has been tolerating these well. No increased abdominal pain or distention overnight. Patient has continued walking the halls multiple times through the day. this was encouraged. Ice or before breakfast today so nurses moving her up to full liquids. Okay of with surgery for discharge today. If she is still here at lunch will try soft low-fiber diet and this is what I would want her to go home on. General surgery instructions placed in the discharge. (2) COPD (chronic obstructive pulmonary disease): Code(s): J44.9 - Chronic obstructive pulmonary disease, unspecified Status: Acute Assessment and Plan: As per hospitalist. Patient to follow-up with Dr. Osorio as an outpatient. (3) H/O major abdominal surgery: Code(s): Z98.890 - Other specified postprocedural states Status: Acute Assessment and Plan: Multiple previous abdominal surgeries as listed in HPI. Adhesions or possibly some narrowing or twisting at the anastomosis could be the cause of her bowel obstructions. See plan above. Again had a thorough discussion with the patient regarding the importance of chewing her food very well and stain on a low-fiber diet for at least a week. She will very gradually increase her diet when she goes home taking mostly liquids but also some soft foods. Is been 3 years since her last surgery if she is carefu lwith how she eats. I think she can avoid further bowel obstructions. (4) Obstructive sleep apnea: Code(s): G47.33 - Obstructive sleep apnea (adult) (pediatric) Status: Chronic Assessment and Plan: encouraged patient to use her CPAP machine at home or other devices and to consider losing some weight. (5) Chronic respiratory failure with hypoxia: Code(s): J96.11 - Chronic respiratory failure with hypoxia Status: Chronic Assessment and Plan: Patient apparently already has home oxygen to use at night. Further Rx per hospitalist and PCP. (6) Chronic anemia: Onset Date: Unknown Code(s): D64.9 - Anemia, unspecified Status: Chronic Assessment and Plan: Hemoglobin today 12.4. This appears to be resolved. (7) Obesity (BMI 30-39.9): Code(s): E66.9 - Obesity, unspecified Status: Acute Assessment and Plan: Patient the borderline of overweight versus obesity. She was encouraged to follow a low-fat diet as losing some weight may help her with both her COPD and her digestive issues. Plan Home later today if okay with hospitalist. Discharge instructions related to small-bowel obstructions placed in discharge order/ Some element of possible esophagitis and gastritis noted on CT done this admission --- would encourage continued use of PPI at home. Subjective Subjective Date/Time Seen: 08/16/22 08:35 Patient reports: flatus and bowel movement (Loose to soft in consistency) Interval history: The patient states she has no abdominal pain today. She tolerated clears yesterday afternoon and for supper last night. She is hungry. She has had 3 loose stools since midnight. Review of Systems Review of Systems: All systems reviewed & are unremarkable except as noted in HPI and below Constitutional: Constitutional: Reports as per HPI, Denies chills and Denies fever(s) Cardiovascular: Cardiovascular: Denies chest pain Gastrointestinal: Gastrointestinal: Reports as per HPI and Denies bloating Musculosk
[2022-08-16 08:37] VITALS: PULSE 85; PULSE 86; RESP 18; O2SAT 95
[2022-08-16 08:51] VITALS: PULSE 90; RESP 20
[2022-08-16] MEDS: PANTOPRAZOLE 40 MG TABLET PO (08:59)
[2022-08-16] MEDS: modafiniL (*CRX) 200 MG TABLET PO (08:59)
[2022-08-16] MEDS: predniSONE 20 MG TABLET 40 MG PO (08:59)
[2022-08-16] MEDS: ENOXAPARIN 40 MG/0.4 ML SYRINGE SUB-Q (08:59)
--- NOTE | 2022-08-16 12:37 | PM.DS ---
DS: Admitting Diagnosis Discharge Date 08/16/2022 Admitting Diagnosis abdominal pain DS: Discharge Diagnosis Discharge Diagnosis (1) SBO (small bowel obstruction): Code(s): K56.609 - Unspecified intestinal obstruction, unspecified as to partial versus complete obstruction Status: Acute (2) COPD (chronic obstructive pulmonary disease): Code(s): J44.9 - Chronic obstructive pulmonary disease, unspecified Status: Acute (3) H/O major abdominal surgery: Code(s): Z98.890 - Other specified postprocedural states Status: Acute (4) URI with cough and congestion: Code(s): J06.9 - Acute upper respiratory infection, unspecified Status: Acute (5) Diarrhea: Code(s): R19.7 - Diarrhea, unspecified Status: Acute (6) Obstructive sleep apnea: Code(s): G47.33 - Obstructive sleep apnea (adult) (pediatric) Status: Chronic (7) Hypertension: Code(s): I10 - Essential (primary) hypertension Status: Acute DS: Summary Hospital Course Hospital Course: #?abdominal pain / nausea /vomiting:? CT abdomen with dilated loops of bowel consistent with small-bowel obstruction with transition point ? At the anastomosis in distal ileum. general surgery consulted.? NG tube placed in the ER. NG tube to drain.? Reported symptoms of diarrhea suggestive of this partial small-bowel obstruction likely due to mucosal edema from ongoing gastroenteritis.? stool studies negative so far. patient was managed conservatively subsequently clears was started which he tolerated well. Furthermore NG tube was removed. she was since the advanced to soft diet was advised to stay on soft diet low-fiber. Hemodynamically stable the hospital. Okay per General surgery to discharge. #?cough:? Ongoing since past month. cxr with bibasilar scarring.? Was treated with steroid and azithromycin recently.? Likely related to her underlying COPD and ongoing smoking.? COVID and flu test came back negative. started on nebulizers. Still persistent and hence started on prednisone with improvement. Will continue prednisone taper at discharge. #Obstructive sleep apnea on CPAP #Chronic respiratory failure with hypoxia on 2 L nasal cannula as needed at home #Hypothyroidism #Peripheral neuropathy #Restless leg syndrome #History of bowel obstruction? needing this small-bowel? resection back in 2019 with extensive adhesiolysis and ileo ileal anastomosis #COPD #Tobacco abuse #Hypertension #Congestive heart failure not in exacerbation #DVT prophylaxis:? Lovenox #Code status: Full code Time Spent with Patient Time attestation: Total time spent providing and/or coordinating discharge services: 40 minutes Exam Narrative: APPEARANCE: No apparent distress. alert and oriented x3 Head: atraumatic. normocephalic EYES:? EOMI, PERRLA NECK: Trachea midline RESPIRATORY: No increased rate of breathing, CARDIOVASCULAR: RRR, S1-S2 heard ABDOMINAL:? abdomen is obese, mild tenderness mostly on right paraumbilical area; Abdomen is soft MUSCULOSKELETAl: No obvious deformities NEURO: Alert. Moving 4/4 extremities SKIN:: Warm, dry. Normal color PSYCHIATRIC: Normal affect DS: Data Data Completed and Pending Labs on day of discharge: Labs from last 24 hours 08/16/22 08/16/22 06:05 06:04 WBC 9.6 RBC 4.00 L Hgb 12.4 Hct 37.7 MCV 94.3 MCH 31.0 MCHC 32.9 RDW 13.5 Plt Count 265 MPV 10.3 Immature Gran % (Auto) 0.3 Neut % (Auto) 61.7 Lymph % (Auto) 30.4 Kay % (Auto) 7.2 Eos % (Auto) 0.2 Baso % (Auto) 0.2 Lymph # (Auto) 2.92 Kay # (Auto) 0.7 H Eos # (Auto) 0.0 Baso # (Auto) 0.0 Abs Immat Gran (auto) 0.03 Absolute Neuts (auto) 5.9 Absolute Nucleated RBC 0.0 Nucleated RBC % 0.0 Sodium 142 Potassium 3.4 Chloride 108 H Carbon Dioxide 27 Anion Gap 7 L BUN 5 L D Creatinine 0.50 L Estim Creat Clear Calc 94 Estimated GFR > 60 Glucose 104 Ca
== END 2022-08-16 13:55 | disposition home or self-care (01) | DRG 389 ==
LOC: ANHED 08-14 03:25 → ANH3MEDSUR 08-14 06:47
PROVIDERS: Surgery; Admitting Provider Internal Medicine; Emergency Provider Emergency Medicine; PCP Emergency Medicine; Visit Provider Internal Medicine
DX: K56.609 Unspecified intestinal obstruction, unspecified as to partial versus complete obstruction (principal); J96.11 Chronic respiratory failure with hypoxia; J44.9 Chronic obstructive pulmonary disease, unspecified; Z98.890 Other specified postprocedural states; J06.9 Acute upper respiratory infection, unspecified; R19.7 Diarrhea, unspecified; G47.33 Obstructive sleep apnea (adult) (pediatric); D64.9 Anemia, unspecified; Z20.822 Contact with and (suspected) exposure to COVID-19; G62.9 Polyneuropathy, unspecified; I50.9 Heart failure, unspecified; G25.81 Restless legs syndrome; M41.9 Scoliosis, unspecified; E66.9 Obesity, unspecified; Z68.30 Body mass index [BMI] 30.0-30.9, adult; I11.0 Hypertensive heart disease with heart failure; K21.9 Gastro-esophageal reflux disease without esophagitis; F41.8 Other specified anxiety disorders; E03.9 Hypothyroidism, unspecified; F17.210 Nicotine dependence, cigarettes, uncomplicated; Z98.42 Cataract extraction status, left eye; Z98.41 Cataract extraction status, right eye; Z90.49 Acquired absence of other specified parts of digestive tract; Z90.710 Acquired absence of both cervix and uterus
CPT/HCPCS: 36415; 71045; 74019; 74177; 80048; 80053; 81001; 83605; 83690; 83735; 85025; 87045; 87177; 87209; 87269; 87272; 87427; 87493; 87636; 89055; 94640; 96361; 96374; 96375; 96376; 99285; A9270; C9113; J0131; J0780; J1170; J1650; J2405; J7030; J7120; J7512; Q9967

== ENCOUNTER 2022-09-20 07:48 | Outpatient (CLI) | payer MEDICARE, MEDICAID, SELFPAY ==
[2022-09-20 10:01] LABS: Alanine Aminotransferase 67 U/L (6-35); Albumin Level 4.1 g/dL (3.5-5.1); Alkaline Phosphatase 148 U/L (38-126); Anion Gap 8 mmol/L (8-16); Aspartate Amino Transferase 45 U/L (14-36); Bilirubin,Total 0.4 mg/dL (0.2-1.3); Blood Urea Nitrogen 11 mg/dL (7-17); Calcium 9.4 mg/dL (8.4-10.2); Carbon Dioxide 29 mmol/L (22-30); Chloride 105 mmol/L (98-107); Estimated Glomerular Filt Rate > 60; Glucose 96 mg/dL (65-110); Sodium 142 mmol/L (137-145)
[2022-09-23 23:30] LABS: Vitamin D 1,25 (OH)2 Total 76 pg/mL (18-72); Vitamin D2 1,25 (OH)2 <8 pg/mL; Vitamin D3 1,25 (OH)2 76 pg/mL
== END 2022-09-20 07:49 | disposition home or self-care (01) ==
LOC: ANHLAB 07:49
PROVIDERS: PCP Emergency Medicine; Visit Provider Emergency Medicine
DX: E55.9 Vitamin D deficiency, unspecified (principal); I10 Essential (primary) hypertension
CPT/HCPCS: 36415; 80053; 82652

== ENCOUNTER 2023-01-29 07:58 | Outpatient (CLI) | payer MEDICARE, MEDICAID, SELFPAY ==
[2023-01-29 08:43] LABS: Alanine Aminotransferase 22 U/L (6-35); Albumin Level 4.5 g/dL (3.5-5.1); Alkaline Phosphatase 122 U/L (38-126); Anion Gap 7 mmol/L (8-16); Aspartate Amino Transferase 28 U/L (14-36); Bilirubin,Total 0.6 mg/dL (0.2-1.3); Blood Urea Nitrogen 9 mg/dL (7-17); Calcium 9.1 mg/dL (8.4-10.2); Carbon Dioxide 31 mmol/L (22-30); Chloride 101 mmol/L (98-107); Estimated Glomerular Filt Rate > 60; Glucose 105 mg/dL (65-110); Potassium 4.1 mmol/L (3.4-5.0); Sodium 139 mmol/L (137-145)
[2023-02-01 23:50] LABS: Vitamin D 1,25 (OH)2 Total 59 pg/mL (18-72); Vitamin D2 1,25 (OH)2 <8 pg/mL; Vitamin D3 1,25 (OH)2 59 pg/mL
== END 2023-01-29 07:59 | disposition home or self-care (01) ==
LOC: ANHLAB 08:00
PROVIDERS: PCP Emergency Medicine; Visit Provider Emergency Medicine
DX: E55.9 Vitamin D deficiency, unspecified (principal); E11.9 Type 2 diabetes mellitus without complications
CPT/HCPCS: 36415; 80053; 82652

== ENCOUNTER 2023-02-28 07:33 | Emergency (ER) | payer MEDICARE, MEDICAID, SELFPAY ==
[2023-02-28 07:38] VITALS: BP 132/82; PULSE 118; RESP 18; TEMP 36.7; O2SAT 98
[2023-02-28] MEDS: TETANUS,DIPHTHERIA,AC PERTUSSIS ADULT (0.5 ML) BOOSTRIX IM (08:59)
--- NOTE | 2023-02-28 09:40 | ED.WOUNDLAC ---
HPI - Wound/Laceration General Chief Complaint: Wound/Laceration Stated Complaint: I need stitches Time Seen by Provider: 02/28/23 08:15 Source: patient Mode of arrival: ambulatory Limitations: no limitations History of Present Illness HPI narrative: 62 years old white female, laceration inner side of right ankle, struck ankle on a declarative right while working at the backyard, denies other injuries, and UNknown last tetanus Related Data Home Medications Medication Instructions Recorded Confirmed albuterol sulfate 90 mcg/actuation 2 inhalation inhalation Q4H PRN 09/21/19 11/20/22 aerosol inhaler (ProAir HFA) Shortness Of Breath Or Wheezing modafinil 200 mg tablet 200 mg PO QAM 09/21/19 11/20/22 fluticasone fur. 100 mcg-umeclid 1 inh inhalation DAILY 03/28/22 11/20/22 62.5 mcg-vilant 25 mcg inhalat.powder (Trelegy Ellipta) Allergies Allergy/AdvReac Type Severity Reaction Status Date / Time latex Allergy Unknown unknown Verified 02/28/23 07:43 Penicillins Allergy Unknown unknown Verified 02/28/23 07:43 Review of Systems Review of Systems: All systems reviewed & are unremarkable except as noted in HPI and below PMFSH Past Medical History Medical History Chronic anemia (Unknown) Chronic back pain Chronic obstructive pulmonary disease (Unknown) Chronic respiratory failure with hypoxia On 2 liters nasal cannula p.r.n. Depression with anxiety Dyslipidemia Gastroesophageal reflux disease (Unknown) History of vaginal delivery Hypothyroidism Migraine headache Obstructive sleep apnea Peripheral neuropathy Restless leg syndrome, controlled Scoliosis Small bowel obstruction due to adhesions Previous, multiple admissions for such. Vitamin D deficiency Surgical History Surgical History Bladder prolapse Repair of bladder prolapse. History of bilateral cataract extraction History of bowel resection 2010 low anterior resection History of cholecystectomy Open cholecystectomy History of colostomy History of colostomy reversal History of eye surgery Treatment of amblyopia. History of hysterectomy History of neck surgery History of tonsillectomy and adenoidectomy Rectal prolapse Rectal prolapse repair. Status post small bowel resection (~01/2019) Exploratory laparotomy with resection of 36 centimeters of the small bowel with extensive adhesiolysis and ileal-ileal anastomosis. [place] teeth removed Family History Family History Father Cirrhosis Alcoholism Mother Emphysema of lung Alcoholism Social History Social History Social History: The patient lives in [place] with her significant other, Luis Fernando. 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 She smoked about a pack of cigarettes per day for > 30 years and quit in 2018. She denies alcohol and illicit substance abuse. She designates her son, Rohit, as her surrogate decision maker and she wishes to be a full code. Smoking packs per day: 0.5 Smoking cigarettes per day: 10.0 Years smoked: 40 Smoking pack-years: 20.00 Smoking status: Current every day smoker Tobacco type: cigarettes Second hand tobacco smoke exposure: Yes Alcohol intake: never Substance use: never Substance use type: does not use Lack of Transportation: No Lack of Food: Never True Current Housing: I Have Housing Concerned About Future Housing: No Difficulty Paying Gas/Electric Bills: No Difficulty Paying for Meds: No Currently Unemployed: No Education: Grade School Difficulty w/ Childcare or Family Care: No Living arrangements: with family Occupation/Education: retired Gender identity (if verbalized by the patient): Female Sexual Orientation (if Verbalized by the Patient): Straight or Heterosexual Spiritual care concerns: No Agre
--- NOTE | 2023-02-28 10:11 | PC.NURSE ---
per Dr. Capellan, patient seen ambulating out of dept. Pt left without d/c papers.
== END 2023-02-28 10:19 | disposition home or self-care (01) ==
PROVIDERS: Emergency Provider Emergency Medicine; PCP Emergency Medicine
DX: S91.011A Laceration without foreign body, right ankle, initial encounter (principal); Z23 Encounter for immunization; J44.9 Chronic obstructive pulmonary disease, unspecified; J96.11 Chronic respiratory failure with hypoxia; E78.5 Hyperlipidemia, unspecified; E03.9 Hypothyroidism, unspecified; D64.9 Anemia, unspecified; G47.33 Obstructive sleep apnea (adult) (pediatric); G62.9 Polyneuropathy, unspecified; G25.81 Restless legs syndrome; K21.9 Gastro-esophageal reflux disease without esophagitis; E55.9 Vitamin D deficiency, unspecified; Z87.891 Personal history of nicotine dependence; Z98.42 Cataract extraction status, left eye; Z98.41 Cataract extraction status, right eye; Z90.49 Acquired absence of other specified parts of digestive tract; Z90.710 Acquired absence of both cervix and uterus; W22.8XXA Striking against or struck by other objects, initial encounter
CPT/HCPCS: 90471; 90715; 99282

== ENCOUNTER 2023-04-11 07:43 | Inpatient (IN) | payer MEDICARE, MEDICAID, SELFPAY ==
[2023-04-11] VITALS (17 sets, daily range): BP systolic 137–152; BP diastolic 73–89; PULSE 64–87; RESP 10–20; TEMP 36.4; O2SAT 86–99; BMI 28.8
--- NOTE | ~2023-04-11 | XR_ITS ---
EXAMINATION: [id number]_[id number]_CR DATE: 04/11/2023 17:07 INDICATION: Nasogastric tube placement. TECHNIQUE: An upright view of the abdomen was obtained. COMPARISON: Abdomen radiograph at 10:14 AM FINDINGS: The lower abdomen is excluded. Surgical clips in the right upper quadrant are likely from c holecystectomy. The nasogastric tube tip is in the stomach. There is mild atelectasis in right midlun g zone. There is an old healed right rib fracture. IMPRESSION: 1. Nasogastric tube tip in the stomach. Reviewed, dictated and finalized at location A.
--- NOTE | ~2023-04-11 | XR_ITS ---
EXAMINATION: XR sm bowel follow through WS DATE: 04/12/2023 15:51 INDICATION: Small bowel obstruction. TECHNIQUE: Oral contrast was administered, and a time course of radiographs of the abdomen was obtain ed. Fluoroscopy of the small bowel was not performed. Fluoroscopy exposure time was 0 minutes. The to mal number of images was 9. COMPARISON: CT abdomen and pelvis 04/11/2023 FINDINGS: Surgical clips in the right upper quadrant are likely from cholecystectomy. The nasogastric tube tip is in the stomach. There are multiple dilated loops of small bowel. Transit time from the stomach to proximal colon was approximately 4.5 hours. IMPRESSION: 1. Dilated small bowel with slow transit of contrast, consistent with partial small bowel obstruction . Reviewed, dictated and finalized at location E. IMPRESSION: 1. Dilated small bowel with slow transit of contrast, consistent with partial s mall bowel obstruction.
--- NOTE | ~2023-04-11 | XR_ITS ---
EXAMINATION: XR_KUBGTUBINS_CR DATE: 04/11/2023 10:19 INDICATION: Nasogastric tube placement. TECHNIQUE: An upright view of the abdomen was obtained. COMPARISON: CT abdomen and pelvis 04/11/2023 FINDINGS: The lower abdomen is excluded. The nasogastric tube tip is in the stomach with proximal sharif e port in the distal esophagus. Surgical clips in the right upper quadrant are likely from cholecyste ctomy. The lungs demonstrate mild atelectasis. There are old healed bilateral rib fractures. IMPRESSION: 1. Nasogastric tube tip in the stomach with proximal side port in the distal esophagus. Advancement 5 cm is recommended. Reviewed, dictated and finalized at location A. IMPRESSION: 1. Nasogastric tube tip in the stomach with proximal side port in the distal es ophagus. Advancement 5 cm is recommended.
--- NOTE | ~2023-04-11 | XR_ITS ---
EXAMINATION: XR abdomen/kub 1V DATE: 04/14/2023 05:32 INDICATION: Small bowel obstruction. TECHNIQUE: A supine view of the abdomen on 2 radiographs was obtained. COMPARISON: Small bowel follow-through 04/12/2023 FINDINGS: There is dilated small bowel in left abdomen. The colon is normal in caliber. Surgical clip s in the right upper quadrant are likely from cholecystectomy. IMPRESSION: 1. Dilated small bowel in left abdomen, consistent with partial small bowel obstruction. Reviewed, dictated and finalized at location A. IMPRESSION: 1. Dilated small bowel in left abdomen, consistent with partial small bowel obs truction.
--- NOTE | ~2023-04-11 | CT_ITS ---
EXAMINATION: CT abdomen pelvis w con DATE: 04/11/2023 08:56 INDICATION: Diffuse abdominal pain. TECHNIQUE: Computed tomography (CT) of the abdomen and pelvis was performed with 100 mL Omnipaque-350 intravenous contrast. Automated exposure control and iterative reconstruction technique were employe d. The dose-length product was 578.31 mGy-cm. COMPARISON: 08/13/2022 FINDINGS: Mild dependent atelectasis in the bilateral lower lobes and discoid atelectasis at the lingula. Heart size is normal. No pericardial or pleural effusion. No significant change in mild intra and extrahep atic biliary ductal dilation likely related to prior cholecystectomy with surgical clips the gallblad lesly fossa. Tiny splenic calcification consistent with old granulomatous disease. Pancreas, bilateral adrenal glands are normal. Bilateral renal cysts the largest on the right measuring 2.9 cm. Fluid thr oughout multiple loops of small bowel and colon consistent with diarrhea. There is a small bowel anas tomosis in the left pelvis. The bowel distal to the anastomosis is relatively decompressed with mild dilation of some of the more proximal small bowel consistent with an early and/or partial small bowel obstruction. Normal appendix. Bladder is normal. The uterus is not identified and has likely been trevino rgically resected. Bilateral adnexa are unremarkable. No free intraperitoneal gas or fluid. No pathol ogically enlarged abdominal or pelvic lymphadenopathy. Mild thoracolumbar dextrocurvature with mild l umbar spondylosis. IMPRESSION: 1. Recurrent early and/or partial small bowel obstruction with transition point again seen at a dista l ileal small bowel anastomosis in the anterior left pelvis. 2. Fluid throughout the colon consistent with nonspecific diarrhea. Reviewed, dictated and finalized at location B. IMPRESSION: 1. Recurrent early and/or partial small bowel obstruction with transition point again seen at a distal ileal small bowel anastomosis in the anterior left pelv is. 2. Fluid throughout the colon consistent with nonspecific diarrhea.
--- NOTE | 2023-04-11 07:59 | ED.ABDPAIN ---
HPI - Abdominal Pain General Chief Complaint: Abdominal Pain Stated Complaint: I have a blockage Time Seen by Provider: 04/11/23 07:47 History of Present Illness HPI narrative: This is a 62-year-old female with past history of COPD on 2 L oxygen at home and bowel obstructions, who presents to the emergency department with suspected bowel obstruction. The patient states 2 days ago she ate raw carrots and since then has had diffuse abdominal pain with nonbloody vomiting. She states her last bowel movement was 2 days ago. She states she has not been able to pass gas for the past day. She complains of sharp, diffuse abdominal pain rated 9/10 without radiation. Related Data Home Medications Medication Instructions Recorded Confirmed albuterol sulfate 90 mcg/actuation 2 inhalation inhalation Q4H PRN 09/21/19 04/11/23 aerosol inhaler (ProAir HFA) Shortness Of Breath Or Wheezing modafinil 200 mg tablet 200 mg PO QAM PRN sleep apnea 09/21/19 04/11/23 fluticasone fur. 100 mcg-umeclid 1 inh inhalation DAILY 03/28/22 04/11/23 62.5 mcg-vilant 25 mcg inhalat.powder (Trelegy Ellipta) Advil 200 mg BYMOUTH PRN PRN Pain 04/11/23 04/11/23 Colace 100 mg BYMOUTH DAILY 04/11/23 04/11/23 polyethylene glycol 3350 17 17 g PO DAILY 04/11/23 04/11/23 gram/dose oral powder (Miralax) Allergies Allergy/AdvReac Type Severity Reaction Status Date / Time latex Allergy Unknown unknown Verified 04/11/23 07:56 Penicillins Allergy Unknown unknown Verified 04/11/23 07:56 Review of Systems Review of Systems: CONSTITUTIONAL: Denies fever, chills, or sweats. CARDIOVASCULAR: Denies chest pain, palpitations, or edema. RESPIRATORY: Denies cough or dyspnea. GASTROINTESTINAL: Diffuse abdominal pain, nausea and vomiting, unable to pass gas denies diarrhea. GENITOURINARY: Denies dysuria or hematuria. SKIN: Denies rash or itching. MUSCULOSKELETAL: Denies back pain, joint pain, or myalgia. NEUROLOGIC: Denies headache, numbness, dizziness, or weakness. PSYCHIATRIC: Denies anxiety or depression. [facility] Past Medical History Medical History Chronic anemia (Unknown) Chronic back pain Chronic obstructive pulmonary disease (Unknown) Chronic respiratory failure with hypoxia On 2 liters nasal cannula p.r.n. Depression with anxiety Dyslipidemia Gastroesophageal reflux disease (Unknown) History of vaginal delivery Hypothyroidism Migraine headache Obstructive sleep apnea Peripheral neuropathy Restless leg syndrome, controlled Scoliosis Small bowel obstruction due to adhesions Previous, multiple admissions for such. Vitamin D deficiency Surgical History Surgical History Bladder prolapse Repair of bladder prolapse. History of bilateral cataract extraction History of bowel resection 2009 low anterior resection History of cholecystectomy Open cholecystectomy History of colostomy History of colostomy reversal History of eye surgery Treatment of amblyopia. History of hysterectomy History of neck surgery History of tonsillectomy and adenoidectomy Rectal prolapse Rectal prolapse repair. Status post small bowel resection (~01/2019) Exploratory laparotomy with resection of 36 centimeters of the small bowel with extensive adhesiolysis and ileal-ileal anastomosis. [place] teeth removed Family History Family History Father Cirrhosis Alcoholism Mother Emphysema of lung Alcoholism Social History Social History Social History: The patient lives in [place] with her significant other, Luis Fernando. 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 She smoked about a pack of cigarettes per day for > 30 years and quit in 2018. She denies alcohol and illicit substance abuse. She designates her son, Rohit, as her surrogate decision maker and she wishes to b
[2023-04-11] MEDS: SODIUM CHLORIDE 0.9% IV 1,000 ML 999 ML IV CONT (08:22)
[2023-04-11] MEDS: ONDANSETRON INJ 4 MG/2 ML VIAL IV PUSH ×4 (08:23→22:21)
[2023-04-11] MEDS: MORPHINE SULFATE (*CRX) 4 MG/ML INJ IV PUSH ×2 (08:24→10:07)
[2023-04-11 08:28] LABS: Basophils Percent Auto 0.2 % (0.2-1.2); Eosinophils Absolute Auto 0.1 K/mm3 (0-0.3); Eosinophils Percent Auto 0.5 % (0-4.4); Hematocrit 44.4 % (37.0-47.0); Hemoglobin 15.1 g/dL (12.0-15.0); Immature Granulocyte Absolute 0.06 K/mm3 (0.00-0.031); Immature Granulocyte Percent A 0.5 % (0-0.5); Lymphocytes Absolute Auto 2.17 K/mm3 (0.9-3.2); Lymphocytes Percent Auto 17.6 % (18.3-44.2); Mean Corpuscular Hemoglobin 31.7 pg (26-34); Mean Corpuscular Volume 93.3 fl (80-100); Monocytes Absolute Auto 0.8 K/mm3 (0.1-0.6); Monocytes Percent Auto 6.2 % (2.6-8.5); Neutrophils Absolute Auto 9.3 K/mm3 (1.3-6.7); Platelet Count Result 302 k/mm3 (150-375); Red Blood Count 4.76 M/mm3 (4.2-5.4); Red Cell Distribution Width 13.3 % (11.5-14.5); White Blood Count 12.4 K/mm3 (4.5-10.0)
[2023-04-11 08:35] LABS: Alanine Aminotransferase 22 U/L (6-35); Albumin Level 4.3 g/dL (3.5-5.1); Alkaline Phosphatase 105 U/L (38-126); Anion Gap 9 mmol/L (8-16); Aspartate Amino Transferase 42 U/L (14-36); Bilirubin,Total 0.5 mg/dL (0.2-1.3); Blood Urea Nitrogen 13 mg/dL (7-17); Calcium 8.9 mg/dL (8.4-10.2); Carbon Dioxide 27 mmol/L (22-30); Chloride 100 mmol/L (98-107); Estimated CRCL calculation 93 ml/min; Estimated Glomerular Filt Rate > 60; Glucose 112 mg/dL (65-110); Lipase 30 U/L (23-300); Potassium 3.9 mmol/L (3.4-5.0); Sodium 136 mmol/L (137-145)
[2023-04-11 08:36] LABS: Lactic Acid Reflex 0.7 mmol/L (0.7-2.0)
[2023-04-11] MEDS: ACETAMINOPHEN 325 MG TABLET 650 MG FEED TUBE (11:44)
[2023-04-11] MEDS: DEXTROSE 5%/0.45% SOD CHL 1,000 ML 100 ML IV CONT ×2 (11:44→22:20)
--- NOTE | 2023-04-11 11:51 | PM.CNGS ---
Assessment and Plan Assessment and plan (1) SBO (small bowel obstruction): Code(s): K56.609 - Unspecified intestinal obstruction, unspecified as to partial versus complete obstruction Status: Acute Assessment and Plan: start conservative treatment with NG decompression, bowel rest, IV hydration, will likely do small bowel series tomorrow (2) COPD (chronic obstructive pulmonary disease): Code(s): J44.9 - Chronic obstructive pulmonary disease, unspecified Status: Acute Assessment and Plan: stable, continue home medications History of Present Illness Consult details Consult date: 04/11/23 Reason for consult: abdominal pain Requesting physician: Basim Villalta MD Narrative: The patient is a 62-year-old female well known to our service from previous admissions for small-bowel obstruction, presenting to the emergency department with small-bowel obstruction. The patient reports that over the last few days she has started with crampy abdominal pain, nausea and vomiting. The patient reports this is very similar to her previous bowel obstructions. Of note, the patient did have a adhesiolysis by Dr. Uribe in the past. The patient has had multiple abdominal surgeries in the past, including bowel resection. Review of Systems Review of Systems: All systems reviewed & are unremarkable except as noted in HPI and below PMFSH Past Medical History Medical History Chronic anemia (Unknown) Chronic back pain Chronic obstructive pulmonary disease (Unknown) Chronic respiratory failure with hypoxia On 2 liters nasal cannula p.r.n. Depression with anxiety Dyslipidemia Gastroesophageal reflux disease (Unknown) History of vaginal delivery Hypothyroidism Migraine headache Obstructive sleep apnea Peripheral neuropathy Restless leg syndrome, controlled Scoliosis Small bowel obstruction due to adhesions Previous, multiple admissions for such. Vitamin D deficiency Surgical History Surgical History Bladder prolapse Repair of bladder prolapse. History of bilateral cataract extraction History of bowel resection 2010 low anterior resection History of cholecystectomy Open cholecystectomy History of colostomy History of colostomy reversal History of eye surgery Treatment of amblyopia. History of hysterectomy History of neck surgery History of tonsillectomy and adenoidectomy Rectal prolapse Rectal prolapse repair. Status post small bowel resection (~01/2019) Exploratory laparotomy with resection of 36 centimeters of the small bowel with extensive adhesiolysis and ileal-ileal anastomosis. [place] teeth removed Family History Family History Father Cirrhosis Alcoholism Mother Emphysema of lung Alcoholism Social History Social History Social History: The patient lives in [place] with her significant other, Luis Fernando. 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 She smoked about a pack of cigarettes per day for > 30 years and quit in 2018. She denies alcohol and illicit substance abuse. She designates her son, Rohit, as her surrogate decision maker and she wishes to be a full code. Smoking packs per day: 0.5 Smoking cigarettes per day: 10.0 Years smoked: 40 Smoking pack-years: 20.00 Smoking status: Current every day smoker Tobacco type: cigarettes Second hand tobacco smoke exposure: Yes Alcohol intake: never Substance use: never Substance use type: does not use Lack of Transportation: No Lack of Food: Never True Current Housing: I Have Housing Concerned About Future Housing: No Difficulty Paying Gas/Electric Bills: No Difficulty Paying for Meds: No Currently Unemployed: No Education: Grade School Difficulty w/ Childcare or Family Care: No Living a
--- NOTE | 2023-04-11 13:16 | PC.NURSE ---
SPo2 decreased to 86% on RA, pt states she normally wears 2L NC at night and has sleep apnea, 2LNC applied, SPO2 to 94%
--- NOTE | 2023-04-11 13:53 | PC.NURSE ---
NG tube advanced 5cm per radiology recommendation.
--- NOTE | 2023-04-11 14:15 | ADMGEN ---
This patient, Rebecca Ricci, was admitted to 2 Medical Room 251-01. Patient/family oriented to hospital policies and general routines including ID bracelet, bed and alarms, visiting hours, pain management, procedures, bathroom and other care routines, personal items, smoking policy, room service/diet, and visiting hours. Information on how to activate the Rapid Response Team has been discussed. Patient/Family are encouraged to report perceived risks to care and to ask questions if they do not understand what they are told or what they should do.
[2023-04-11] MEDS: MORPHINE SULFATE (*CRX) 2 MG/ML INJ IV PUSH ×2 (16:08→19:16)
--- NOTE | 2023-04-11 20:59 | PM.IMHP ---
H&P: HPI History of Present Illness Date/Time: 04/11/23 20:59 Chief Complaint: A bowel blockage Narrative: 62-year-old female with a past medical history of COPD with p.r.n. and nocturnal oxygen use, continued tobacco use, obstructive sleep apnea, and multiple prior bowel surgeries with recurrent bowel obstructions who presented to the ER with another bowel obstruction. The patient reports that had is worse her pain is a 9/10 in intensity. It is crampy. It is accompanied by some nausea and 1 episode of emesis. She reports that the pain started on the night of the 10th around 19:00. She thinks that the symptoms started after she had had some carrots and cucumbers earlier in the day. She reports she cannot remember the last time she had fresh vegetables. She thinks that she did not chew the carrots enough. As the day progressed she became more bloated. She had not had a bowel movement since the night before. She denies any hematochezia or melena. She has not had any fevers or chills. She denies any chest pain. She does have somewhat chronic shortness of breath that occasionally worsens due to her COPD. Currently are breathing is at baseline. She states that she wheezes all the time in this is unchanged. She has nasal cannula oxygen in place. She states she uses 2 L oxygen as needed during the day and all the time at night. The patient reports once her symptoms began she did try taking x-ray doses of Colace and MiraLax as well as some milk of magnesia to have a bowel movement. When these efforts did not work she also tried ambulating around the house and only drank a clear liquid diet yesterday. Despite these efforts her pain continued to worsen and she came to the ER. She has subsequently been admitted for recurrent small-bowel obstruction with NG tube in place. General surgery has been consulted. She reports that her pain is moderately improved with IV morphine. Nausea has improved after NG placement. She reports her pain is now 4/10 in intensity. Review of Systems Review of Systems: 12 systems were reviewed with pertinent positives and negatives per HPI. Except as documented in the HPI, all other systems were reviewed and are negative. [facility] Past Medical History Medical History (Updated 04/12/23 @ 01:40 by Vee Hernandez DO) B12 deficiency Chronic anemia (Unknown) Chronic back pain Chronic constipation Chronic constipation Chronic obstructive pulmonary disease (Unknown) Chronic respiratory failure with hypoxia On 2 liters nasal cannula p.r.n. Depression with anxiety Dyslipidemia Gastroesophageal reflux disease (Unknown) GERD without esophagitis History of vaginal delivery Hypothyroidism Iron deficiency anemia Migraine headache Mixed hyperlipidemia Obstructive sleep apnea Peripheral neuropathy Restless leg syndrome, controlled Scoliosis Small bowel obstruction due to adhesions Previous, multiple admissions for such. TIA (transient ischemic attack) (~2000) Vitamin D deficiency Surgical History Surgical History Bladder prolapse Repair of bladder prolapse. History of bilateral cataract extraction History of bowel resection 2009 low anterior resection History of cholecystectomy Open cholecystectomy History of colostomy History of colostomy reversal History of eye surgery Treatment of amblyopia. History of hysterectomy History of neck surgery History of tonsillectomy and adenoidectomy Rectal prolapse Rectal prolapse repair. Status post small bowel resection (~01/2019) Exploratory laparotomy with resection of 36 centimeters of the small bowel with extensive adhesiolysis and ileal-ileal anastomosis. [place] teeth removed Family History Family History Father Cirrhosis Alcoholism Mother Emphysema of lung Alcoholism Social History Social History (Updated 04/12/23 @ 01:34 by Syd
[2023-04-11] MEDS: MORPHINE SULFATE (*CRX) 2 MG/ML INJ 4 MG IV PUSH (22:18)
[2023-04-12] VITALS (7 sets, daily range): BP systolic 151–175; BP diastolic 71–80; PULSE 63–78; RESP 16–20; TEMP 36.2–36.4; O2SAT 92–100
[2023-04-12] MEDS: ONDANSETRON INJ 4 MG/2 ML VIAL IV PUSH ×3 (01:50→16:32)
[2023-04-12] MEDS: MORPHINE SULFATE (*CRX) 2 MG/ML INJ 4 MG IV PUSH (03:38)
[2023-04-12 05:38] LABS: Basophils Percent Auto 0.4 % (0.2-1.2); Eosinophils Absolute Auto 0.1 K/mm3 (0-0.3); Eosinophils Percent Auto 1.2 % (0-4.4); Hematocrit 40.6 % (37.0-47.0); Immature Granulocyte Absolute 0.01 K/mm3 (0.00-0.031); Immature Granulocyte Percent A 0.2 % (0-0.5); Lymphocytes Percent Auto 34.9 % (18.3-44.2); Mean Corpuscular Hemoglobin 31.1 pg (26-34); Mean Corpuscular Volume 97.1 fl (80-100); Mean Platelet Volume 9.9 fl (7.4-10.4); Monocytes Absolute Auto 0.4 K/mm3 (0.1-0.6); Monocytes Percent Auto 7.4 % (2.6-8.5); Neutrophils Absolute Auto 2.7 K/mm3 (1.3-6.7); Neutrophils Percent Auto 55.9 % (45.5-73.1); Platelet Count Result 250 k/mm3 (150-375); Red Blood Count 4.18 M/mm3 (4.2-5.4); Red Cell Distribution Width 13.3 % (11.5-14.5); White Blood Count 4.9 K/mm3 (4.5-10.0)
[2023-04-12 05:47] LABS: Anion Gap 2 mmol/L (8-16); Blood Urea Nitrogen 6 mg/dL (7-17); Calcium 8.1 mg/dL (8.4-10.2); Carbon Dioxide 31 mmol/L (22-30); Chloride 103 mmol/L (98-107); Estimated CRCL calculation 88 ml/min; Estimated Glomerular Filt Rate > 60; Glucose 128 mg/dL (65-110); Potassium 3.6 mmol/L (3.4-5.0); Sodium 136 mmol/L (137-145)
[2023-04-12] MEDS: DEXTROSE 5%/0.45% SOD CHL 1,000 ML 100 ML IV CONT ×2 (06:46→23:04)
--- NOTE | 2023-04-12 08:02 | PM.IMPN ---
Progress Note: A&P Assessment and Plan (1) Small bowel obstruction: Code(s): K56.609 - Unspecified intestinal obstruction, unspecified as to partial versus complete obstruction Status: Acute Assessment and Plan: CT scan with small partial bowel obstruction in anterior left pelvis N/V/Diarhea Abdominal pain NG tube LIWS NPO IVF IV antiemetics and pain control with morphine IV protonix Surgery consult. Recommendations are appreciated. small bowel follow through ordered (2) COPD (chronic obstructive pulmonary disease): Qualifiers: COPD type: unspecified COPD Qualified Code(s): J44.9 - Chronic obstructive pulmonary disease, unspecified Code(s): J44.9 - Chronic obstructive pulmonary disease, unspecified Status: Acute Assessment and Plan: Nocturnal and prn oxygen use at home LEVY 2 L NC albuterol inhaler ordered prn nebulizer (3) Tobacco dependence: Code(s): F17.200 - Nicotine dependence, unspecified, uncomplicated Status: Acute Assessment and Plan: Daily smoker Counseled on cessation Nicotine patch ordered Subjective Date/time seen: 04/12/23 08:02 Interval history: Chief Complaint: A bowel blockage Narrative: 62-year-old female with a past medical history of COPD with p.r.n. and nocturnal oxygen use, continued tobacco use, obstructive sleep apnea, and multiple prior bowel surgeries with recurrent bowel obstructions who presented to the ER with another bowel obstruction.? The patient reports that had is worse her pain is a 9/10 in intensity.? It is crampy.? It is accompanied by some nausea and 1 episode of emesis.? She reports that the pain started on the night of the around 19:00.? She thinks that the symptoms started after she had had some carrots and cucumbers earlier in the day.? She reports she cannot remember the last time she had fresh vegetables.? She thinks that she did not chew the carrots enough.? As the day progressed she became more bloated.? She had not had a bowel movement since the night before.? She denies any hematochezia or melena.? She has not had any fevers or chills.? She denies any chest pain.? She does have somewhat chronic shortness of breath that occasionally worsens due to her COPD.? Currently are breathing is at baseline.? She states that she wheezes all the time in this is unchanged.? She has nasal cannula oxygen in place.? She states she uses 2 L oxygen as needed during the day and all the time at night. The patient reports once her symptoms began she did try taking x-ray doses of Colace and MiraLax as well as some milk of magnesia to have a bowel movement.? When these efforts did not work she also tried ambulating around the house and only drank a clear liquid diet yesterday.? Despite these efforts her pain continued to worsen and she came to the ER.? She has subsequently been admitted for recurrent small-bowel obstruction with NG tube in place.? General surgery has been consulted.? She reports that her pain is moderately improved with IV morphine.? Nausea has improved after NG placement.? She reports her pain is now 4/10 in intensity. Interval History: 04/12: Patient seen today resting in bed with NG tube placed. She appears uncomfortable and states that she is having continued nausea despite her NG tube. Contents in canister are thick and mullins. I flushed the NG with 60 mL of water and cleared airport but little return contents. Patient also complains of generalized lower quadrant abdominal pain pain. She states that the pain is worse on the left side. She says that she has long history of abdominal surgeries. She has had a hysterectomy and during her hysterectomy her colon was cut required her to have a colostomy placed. Colostomy has since been reversed. And since then she has had recurrent issues with bowel obstructions and adhesions, requiring an additional ex lap for lysis of adhesions. General surgery w
[2023-04-12] MEDS: NICOTINE (*PBKC) 21 MG PATCH 1 PATCH TRANSDERM (08:41)
[2023-04-12] MEDS: PANTOPRAZOLE SODIUM IV 40 MG VIAL IV PUSH (09:26)
--- NOTE | 2023-04-12 09:52 | PM.PNGS ---
Progress Note: A&P Assessment and Plan (1) Small bowel obstruction: Code(s): K56.609 - Unspecified intestinal obstruction, unspecified as to partial versus complete obstruction Status: Acute Assessment and Plan: cont NG decompression, bowel rest, IV hydration, will get SBS Subjective Subjective Date/Time Seen: 04/12/23 09:52 Interval history: still quite nauseous, pain improved Review of Systems Review of Systems: All systems reviewed & are unremarkable except as noted in HPI and below Exam Const: General: cooperative, no acute distress and uncomfortable Resp: Auscultation: clear to auscultation bilaterally Cardio: Rate: regular rate Rhythm: regular rhythm GI: Inspection: normal to inspection and distended GI Palp: No abdominal tenderness and Yes Soft to palpation Objective Data Vital Signs Vital Signs: Vital Signs - 24 hr 04/11/23 10:17 04/11/23 13:06 04/11/23 13:12 Temperature Pulse Rate 70 71 Respiratory Rate 16 14 Blood Pressure 152/82 H 137/76 Pulse Oximetry 94 92 86 L Oxygen Delivery Oxygen Flow Rate 04/11/23 13:13 04/11/23 15:16 04/11/23 14:53 Temperature 36.4 C Pulse Rate 71 Respiratory Rate 18 Blood Pressure 149/80 H Pulse Oximetry 94 94 99 Oxygen Delivery Nasal Cannula Oxygen Flow Rate 2 2 04/11/23 17:20 04/11/23 19:11 04/11/23 20:00 Temperature 36.4 C L Pulse Rate 64 64 Respiratory Rate 16 16 Blood Pressure 146/89 H Pulse Oximetry 94 99 99 Oxygen Delivery Nasal Cannula Nasal Cannula Oxygen Flow Rate 2 2 04/12/23 05:21 Temperature 36.4 C Pulse Rate 78 Respiratory Rate 20 Blood Pressure 151/71 H Pulse Oximetry 93 Oxygen Delivery Oxygen Flow Rate Intake/Output Intake/Output: Intake & Output 04/09/23 04/10/23 04/11/23 04/12/23 23:59 23:59 23:59 23:59 Intake Total 3000 1050 Output Total 1100 Balance 3000 -50 Meds/Results Medications: Active Medications Generic Name Dose Route Start Last Admin Trade Name Freq PRN Reason Stop Dose Admin Acetaminophen 650 mg 04/11/23 11:02 04/11/23 11:44 Acetaminophen 325 Mg Tablet FEED TUBE 650 mg Q4H PRN Administration Mild Pain (1-3) or Fever Albuterol 5 mg 04/12/23 01:20 Albuterol Sulfate Neb 2.5 Mg/3 Ml Inh INHALATION Q6HRT PRN Shortness Of Breath Fluticasone/Umeclidinium/Vilanterol 1 puff 04/12/23 08:00 Fluticasone/Umeclidin/Vilanter 100-62.5-25 Mcg Ellipta INHALATION DAILYRT ARELI Dextrose/Sodium Chloride 1,000 mls @ 100 mls/hr 04/11/23 11:05 04/12/23 06:46 Dextrose 5% Sodium Chloride 0.45% IV CONT 100 mls/hr .Q10H ARELI Administration Ipratropium [place] 0.5 mg 04/12/23 01:20 Ipratropium Br 0.02% Inh Soln 0.5 Mg/2.5 Ml Vial INHALATION Q6HRT PRN Shortness Of Breath Morphine Sulfate 4 mg 04/11/23 21:47 04/12/23 03:38 Morphine Sulfate (*Crx) 2 Mg/Ml Inj IV PUSH 4 mg Q3H PRN Administration Pain Rated 7-10 Nicotine 1 patch 04/12/23 09:00 04/12/23 08:41 Nicotine (*Pbkc) 21 Mg Patch TRANSDERM 1 patch QAM ARELI Administration Ondansetron HCl 4 mg 04/11/23 16:02 04/12/23 09:27 Ondansetron Inj 4 Mg/2 Ml Vial IV PUSH 4 mg Q6H PRN Administration Nausea And Vomiting Pantoprazole Sodium 40 mg 04/12/23 09:00 04/12/23 09:26 Pantoprazole Sodium Iv 40 Mg Vial IV PUSH 40 mg QAM ARELI Administration Radiology Results: ITS Impressions Abdomen/Pelvis CT 04/11/23 08:59 IMPRESSION: 1. Recurrent early and/or partial small bowel obstruction with transition point again seen at a distal ileal small bowel anastomosis in the anterior left pelvis. 2. Fluid throughout the colon consistent with nonspecific diarrhea. Abdomen X-Ray 04/11/23 17:11 IMPRESSION: 1. Nasogastric tube tip in the stomach. Labs Labs: Laboratory Results - last 24 hr 04/12/23 05:18 WBC 4.9 RBC 4.18 L Hgb 13.0 Hct 40.6 MCV 97.1 MCH 31.1 MCHC 32
[2023-04-13 04:26] VITALS: BP 149/84; PULSE 57; RESP 16; TEMP 36.8; O2SAT 99
--- NOTE | 2023-04-13 07:24 | PM.IMPN ---
Progress Note: A&P Assessment and Plan (1) Small bowel obstruction: Code(s): K56.609 - Unspecified intestinal obstruction, unspecified as to partial versus complete obstruction Status: Acute Assessment and Plan: CT scan with small partial bowel obstruction in anterior left pelvis N/V/Diarhea Abdominal pain NG tube-clamp Trial clears IVF IV antiemetics and pain control with morphine IV protonix Surgery consult. Recommendations are appreciated. small bowel follow through ordered and shows slow transport of contrast consistent with SBO (2) COPD (chronic obstructive pulmonary disease): Qualifiers: COPD type: unspecified COPD Qualified Code(s): J44.9 - Chronic obstructive pulmonary disease, unspecified Code(s): J44.9 - Chronic obstructive pulmonary disease, unspecified Status: Acute Assessment and Plan: Nocturnal and prn oxygen use at home LEVY 2 L NC albuterol inhaler ordered prn nebulizer (3) Tobacco dependence: Code(s): F17.200 - Nicotine dependence, unspecified, uncomplicated Status: Acute Assessment and Plan: Daily smoker Counseled on cessation Nicotine patch ordered Plan -clamp NG -trial clear liquid diet -have patient up and ambulating as tolerated Subjective Date/time seen: 04/13/23 07:24 Interval history: Chief Complaint: A bowel blockage Narrative: 62-year-old female with a past medical history of COPD with p.r.n. and nocturnal oxygen use, continued tobacco use, obstructive sleep apnea, and multiple prior bowel surgeries with recurrent bowel obstructions who presented to the ER with another bowel obstruction.? The patient reports that had is worse her pain is a 9/10 in intensity.? It is crampy.? It is accompanied by some nausea and 1 episode of emesis.? She reports that the pain started on the night of the around 19:00.? She thinks that the symptoms started after she had had some carrots and cucumbers earlier in the day.? She reports she cannot remember the last time she had fresh vegetables.? She thinks that she did not chew the carrots enough.? As the day progressed she became more bloated.? She had not had a bowel movement since the night before.? She denies any hematochezia or melena.? She has not had any fevers or chills.? She denies any chest pain.? She does have somewhat chronic shortness of breath that occasionally worsens due to her COPD.? Currently are breathing is at baseline.? She states that she wheezes all the time in this is unchanged.? She has nasal cannula oxygen in place.? She states she uses 2 L oxygen as needed during the day and all the time at night. The patient reports once her symptoms began she did try taking x-ray doses of Colace and MiraLax as well as some milk of magnesia to have a bowel movement.? When these efforts did not work she also tried ambulating around the house and only drank a clear liquid diet yesterday.? Despite these efforts her pain continued to worsen and she came to the ER.? She has subsequently been admitted for recurrent small-bowel obstruction with NG tube in place.? General surgery has been consulted.? She reports that her pain is moderately improved with IV morphine.? Nausea has improved after NG placement.? She reports her pain is now 4/10 in intensity. Interval History: 04/12: Patient seen today resting in bed with NG tube placed. She appears uncomfortable and states that she is having continued nausea despite her NG tube. Contents in canister are thick and mullins. I flushed the NG with 60 mL of water and cleared airport but little return contents. Patient also complains of generalized lower quadrant abdominal pain pain. She states that the pain is worse on the left side. She says that she has long history of abdominal surgeries. She has had a hysterectomy and during her hysterectomy her colon was cut required her to have a colostomy placed. Colostomy has since been reversed.
[2023-04-13 08:51] VITALS: O2SAT 94
[2023-04-13 08:57] LABS: Basophils Percent Auto 0.5 % (0.2-1.2); Eosinophils Absolute Auto 0.1 K/mm3 (0-0.3); Eosinophils Percent Auto 1.1 % (0-4.4); Hematocrit 43.2 % (37.0-47.0); Hemoglobin 14.2 g/dL (12.0-15.0); Immature Granulocyte Absolute 0.02 K/mm3 (0.00-0.031); Immature Granulocyte Percent A 0.3 % (0-0.5); Lymphocytes Absolute Auto 2.22 K/mm3 (0.9-3.2); Lymphocytes Percent Auto 33.9 % (18.3-44.2); Mean Corpuscular HGB Conc 32.9 g/dl (32-36); Mean Corpuscular Hemoglobin 31.6 pg (26-34); Mean Platelet Volume 9.9 fl (7.4-10.4); Monocytes Absolute Auto 0.4 K/mm3 (0.1-0.6); Monocytes Percent Auto 6.1 % (2.6-8.5); Neutrophils Absolute Auto 3.8 K/mm3 (1.3-6.7); Neutrophils Percent Auto 58.1 % (45.5-73.1); Platelet Count Result 257 k/mm3 (150-375); Red Cell Distribution Width 13.2 % (11.5-14.5); White Blood Count 6.6 K/mm3 (4.5-10.0)
[2023-04-13 09:07] LABS: Alanine Aminotransferase 269 U/L (6-35); Albumin Level 3.7 g/dL (3.5-5.1); Alkaline Phosphatase 143 U/L (38-126); Anion Gap 3 mmol/L (8-16); Aspartate Amino Transferase 189 U/L (14-36); Bilirubin,Total 0.4 mg/dL (0.2-1.3); Blood Urea Nitrogen 3 mg/dL (7-17); Calcium 8.4 mg/dL (8.4-10.2); Carbon Dioxide 30 mmol/L (22-30); Chloride 104 mmol/L (98-107); Estimated CRCL calculation 88 ml/min; Estimated Glomerular Filt Rate > 60; Glucose 122 mg/dL (65-110); Sodium 137 mmol/L (137-145)
[2023-04-13] MEDS: DEXTROSE 5%/0.45% SOD CHL 1,000 ML 100 ML IV CONT ×2 (09:39→17:44)
[2023-04-13] MEDS: NICOTINE (*PBKC) 21 MG PATCH 1 PATCH TRANSDERM (09:42)
[2023-04-13] MEDS: PANTOPRAZOLE SODIUM IV 40 MG VIAL IV PUSH (09:42)
[2023-04-13] MEDS: FLUTICASONE/UMECLIDIN/VILANTER 100-62.5-25 MCG ELLIPTA 1 PUFF INHALATION (10:55)
--- NOTE | 2023-04-13 11:15 | PM.PNGS ---
Progress Note: A&P Assessment and Plan (1) Small bowel obstruction: Code(s): K56.609 - Unspecified intestinal obstruction, unspecified as to partial versus complete obstruction Status: Acute Assessment and Plan: SBS reviewed, exam much improved, +bowel fxn, will clamp NG and hopefully remove later today, start clears if NG out, OOB Subjective Subjective Date/Time Seen: 04/13/23 11:15 Interval history: feels much better, some mild cramping, +multiple loose BMs Review of Systems Review of Systems: All systems reviewed & are unremarkable except as noted in HPI and below Exam Const: General: cooperative, comfortable and no acute distress Cardio: Rate: regular rate Rhythm: regular rhythm GI: Inspection: normal to inspection and non-distended GI Palp: Yes abdominal tenderness, Yes Soft to palpation, Yes Tenderness to palpation present (GI), No Guarding due to palpation present (GI) and No Rigid due to palpation Objective Data Vital Signs Vital Signs: Vital Signs - 24 hr 04/12/23 13:53 04/12/23 14:22 04/12/23 19:21 Temperature 36.2 C L 36.4 C Pulse Rate 65 63 Respiratory Rate 20 16 Blood Pressure 175/72 H 155/80 H Pulse Oximetry 100 93 100 Oxygen Delivery Nasal Cannula Oxygen Flow Rate 1 04/12/23 20:43 04/13/23 04:26 04/12/23 22:00 Temperature 36.8 C Pulse Rate 57 L Respiratory Rate 16 Blood Pressure 149/84 H Pulse Oximetry 92 99 99 Oxygen Delivery Nasal Cannula Nasal Cannula Oxygen Flow Rate 1 2 04/13/23 08:51 Temperature Pulse Rate Respiratory Rate Blood Pressure Pulse Oximetry 94 Oxygen Delivery Nasal Cannula Oxygen Flow Rate 2 Intake/Output Intake/Output: Intake & Output 04/10/23 04/11/23 04/12/23 04/13/23 23:59 23:59 23:59 23:59 Intake Total 3000 2050 1100 Output Total 1100 400 Balance 3000 950 700 Meds/Results Medications: Active Medications Generic Name Dose Route Start Last Admin Trade Name Freq PRN Reason Stop Dose Admin Acetaminophen 650 mg 04/11/23 11:02 04/11/23 11:44 Acetaminophen 325 Mg Tablet FEED TUBE 650 mg Q4H PRN Administration Mild Pain (1-3) or Fever Albuterol 5 mg 04/12/23 01:20 Albuterol Sulfate Neb 2.5 Mg/3 Ml Inh INHALATION Q6HRT PRN Shortness Of Breath Fluticasone/Umeclidinium/Vilanterol 1 puff 04/12/23 08:00 04/13/23 10:55 Fluticasone/Umeclidin/Vilanter 100-62.5-25 Mcg Ellipta INHALATION 1 puff DAILYRT ARELI Administration Dextrose/Sodium Chloride 1,000 mls @ 100 mls/hr 04/11/23 11:05 04/13/23 09:39 Dextrose 5% Sodium Chloride 0.45% IV CONT 100 mls/hr .Q10H ARELI Administration Potassium Chloride 40 meq/ 520 mls @ 130 mls/hr 04/13/23 11:00 Sodium Chloride IVPB 04/13/23 14:59 ONCE ONE Ipratropium [place] 0.5 mg 04/12/23 01:20 Ipratropium Br 0.02% Inh Soln 0.5 Mg/2.5 Ml Vial INHALATION Q6HRT PRN Shortness Of Breath Morphine Sulfate 4 mg 04/11/23 21:47 04/12/23 03:38 Morphine Sulfate (*Crx) 2 Mg/Ml Inj IV PUSH 4 mg Q3H PRN Administration Pain Rated 7-10 Nicotine 1 patch 04/12/23 09:00 04/13/23 09:42 Nicotine (*Pbkc) 21 Mg Patch TRANSDERM 1 patch QAM ARELI Administration Ondansetron HCl 4 mg 04/11/23 16:02 04/12/23 16:32 Ondansetron Inj 4 Mg/2 Ml Vial IV PUSH 4 mg Q6H PRN Administration Nausea And Vomiting Pantoprazole Sodium 40 mg 04/12/23 09:00 04/13/23 09:42 Pantoprazole Sodium Iv 40 Mg Vial IV PUSH 40 mg QAM ARELI Administration Radiology Results: ITS Impressions Abdomen/Pelvis CT 04/11/23 08:59 IMPRESSION: 1. Recurrent early and/or partial small bowel obstruction with transition point again seen at a distal ileal small bowel anastomosis in the anterior left pelvis. 2. Fluid throughout the colon consistent with nonspecific diarrhea. Abdomen X-Ray 04/11/23 17:11 IMPRESSION: 1. Nasogastric tube tip in the stomach. Small Bowel X-Ray 04/12/23 15:55 I
[2023-04-13] MEDS: POTASSIUM CHLORIDE INJ 40 MEQ in SODIUM CHLORIDE 0.9% IV 500 ML 130 MEQ IVPB (11:43)
[2023-04-13 16:00] VITALS: BP 156/97; PULSE 50; RESP 16; TEMP 36.7; O2SAT 92
[2023-04-13 22:44] VITALS: BP 152/92; PULSE 53; RESP 18; TEMP 36.5; O2SAT 97
[2023-04-14 05:22] LABS: Hematocrit 40.5 % (37.0-47.0); Hemoglobin 13.4 g/dL (12.0-15.0); Mean Corpuscular HGB Conc 33.1 g/dl (32-36); Mean Corpuscular Hemoglobin 31.5 pg (26-34); Mean Corpuscular Volume 95.3 fl (80-100); Platelet Count Result 255 k/mm3 (150-375); Red Blood Count 4.25 M/mm3 (4.2-5.4); Red Cell Distribution Width 13.2 % (11.5-14.5)
[2023-04-14] MEDS: DEXTROSE 5%/0.45% SOD CHL 1,000 ML 100 ML IV CONT (05:33)
[2023-04-14 05:35] LABS: Anion Gap -1 mmol/L (8-16); Calcium 8.9 mg/dL (8.4-10.2); Carbon Dioxide 29 mmol/L (22-30); Chloride 108 mmol/L (98-107); Estimated CRCL calculation 75 ml/min; Estimated Glomerular Filt Rate > 60; Glucose 116 mg/dL (65-110); Sodium 136 mmol/L (137-145)
[2023-04-14 06:00] VITALS: BP 133/71; PULSE 55; RESP 20; TEMP 36.7; O2SAT 98
[2023-04-14 06:08] LABS: Blood Urea Nitrogen < 2 mg/dL (7-17)
[2023-04-14] MEDS: FLUTICASONE/UMECLIDIN/VILANTER 100-62.5-25 MCG ELLIPTA 1 PUFF INHALATION (07:59)
[2023-04-14 08:01] VITALS: O2SAT 96
[2023-04-14 09:28] VITALS: RESP 20; O2SAT 96
[2023-04-14] MEDS: PANTOPRAZOLE SODIUM IV 40 MG VIAL IV PUSH (09:28)
--- NOTE | 2023-04-14 10:48 | PM.IMPN ---
Progress Note: A&P Assessment and Plan (1) Small bowel obstruction: Code(s): K56.609 - Unspecified intestinal obstruction, unspecified as to partial versus complete obstruction Status: Acute Assessment and Plan: CT scan with small partial bowel obstruction in anterior left pelvis N/V/Diarhea Abdominal pain IV antiemetics and pain control with morphine IV protonix Surgery consult. Recommendations are appreciated. small bowel follow through ordered and shows slow transport of contrast consistent with SBO Tolerated full liquid diet for breakfast without pain or nausea. Will advance to low fiber for lunch and assess tolerance. (2) COPD (chronic obstructive pulmonary disease): Qualifiers: COPD type: unspecified COPD Qualified Code(s): J44.9 - Chronic obstructive pulmonary disease, unspecified Code(s): J44.9 - Chronic obstructive pulmonary disease, unspecified Status: Acute Assessment and Plan: Nocturnal and prn oxygen use at home LEVY 2 L NC albuterol inhaler ordered prn nebulizer (3) Tobacco dependence: Code(s): F17.200 - Nicotine dependence, unspecified, uncomplicated Status: Acute Assessment and Plan: Daily smoker Counseled on cessation Nicotine patch ordered Plan -up out of bed and walking halls -low fiber diet at lunch -potential discharge later today or in the morning. Subjective Date/time seen: 04/14/23 10:48 Interval history: Chief Complaint: A bowel blockage Narrative: 62-year-old female with a past medical history of COPD with p.r.n. and nocturnal oxygen use, continued tobacco use, obstructive sleep apnea, and multiple prior bowel surgeries with recurrent bowel obstructions who presented to the ER with another bowel obstruction.? The patient reports that had is worse her pain is a 9/10 in intensity.? It is crampy.? It is accompanied by some nausea and 1 episode of emesis.? She reports that the pain started on the night of the around 19:00.? She thinks that the symptoms started after she had had some carrots and cucumbers earlier in the day.? She reports she cannot remember the last time she had fresh vegetables.? She thinks that she did not chew the carrots enough.? As the day progressed she became more bloated.? She had not had a bowel movement since the night before.? She denies any hematochezia or melena.? She has not had any fevers or chills.? She denies any chest pain.? She does have somewhat chronic shortness of breath that occasionally worsens due to her COPD.? Currently are breathing is at baseline.? She states that she wheezes all the time in this is unchanged.? She has nasal cannula oxygen in place.? She states she uses 2 L oxygen as needed during the day and all the time at night. The patient reports once her symptoms began she did try taking x-ray doses of Colace and MiraLax as well as some milk of magnesia to have a bowel movement.? When these efforts did not work she also tried ambulating around the house and only drank a clear liquid diet yesterday.? Despite these efforts her pain continued to worsen and she came to the ER.? She has subsequently been admitted for recurrent small-bowel obstruction with NG tube in place.? General surgery has been consulted.? She reports that her pain is moderately improved with IV morphine.? Nausea has improved after NG placement.? She reports her pain is now 4/10 in intensity. Interval History: 04/12: Patient seen today resting in bed with NG tube placed. She appears uncomfortable and states that she is having continued nausea despite her NG tube. Contents in canister are thick and mullins. I flushed the NG with 60 mL of water and cleared airport but little return contents. Patient also complains of generalized lower quadrant abdominal pain pain. She states that the pain is worse on the left side. She says that she has long history of abdominal surgeries. She has had a hysterectomy and d
--- NOTE | 2023-04-14 11:10 | PM.PNGS ---
Progress Note: A&P Assessment and Plan (1) Small bowel obstruction: Code(s): K56.609 - Unspecified intestinal obstruction, unspecified as to partial versus complete obstruction Status: Acute Assessment and Plan: doing well, exam benign, ADAT, home soon Subjective Subjective Date/Time Seen: 04/14/23 11:10 Interval history: feels good, NG out last night, hayden full liquids, +bowel fxn Review of Systems Review of Systems: All systems reviewed & are unremarkable except as noted in HPI and below Exam Const: General: cooperative, comfortable and no acute distress Resp: Auscultation: clear to auscultation bilaterally Cardio: Rate: regular rate Rhythm: regular rhythm GI: Inspection: normal to inspection and non-distended GI Palp: No abdominal tenderness, Yes Soft to palpation, No Tenderness to palpation present (GI) and No Guarding due to palpation present (GI) Objective Data Vital Signs Vital Signs: Vital Signs - 24 hr 04/13/23 16:00 04/13/23 22:44 04/14/23 06:00 Temperature 36.7 C 36.5 C 36.7 C Pulse Rate 50 L 53 L 55 L Respiratory Rate 16 18 20 Blood Pressure 156/97 H 152/92 H 133/71 Pulse Oximetry 92 97 98 Oxygen Delivery 04/14/23 08:01 04/14/23 09:28 Temperature Pulse Rate Respiratory Rate 20 Blood Pressure Pulse Oximetry 96 96 Oxygen Delivery Room Air Room Air Intake/Output Intake/Output: Intake & Output 04/11/23 04/12/23 04/13/23 04/14/23 23:59 23:59 23:59 23:59 Intake Total 3000 2050 4040 2100 Output Total 1100 400 200 Balance 3000 950 3640 1900 Meds/Results Medications: Active Medications Generic Name Dose Route Start Last Admin Trade Name Freq PRN Reason Stop Dose Admin Acetaminophen 650 mg 04/11/23 11:02 04/11/23 11:44 Acetaminophen 325 Mg Tablet FEED TUBE 650 mg Q4H PRN Administration Mild Pain (1-3) or Fever Albuterol 5 mg 04/12/23 01:20 Albuterol Sulfate Neb 2.5 Mg/3 Ml Inh INHALATION Q6HRT PRN Shortness Of Breath Fluticasone/Umeclidinium/Vilanterol 1 puff 04/12/23 08:00 04/14/23 07:59 Fluticasone/Umeclidin/Vilanter 100-62.5-25 Mcg Ellipta INHALATION 1 puff DAILYRT ARELI Administration Ipratropium [place] 0.5 mg 04/12/23 01:20 Ipratropium Br 0.02% Inh Soln 0.5 Mg/2.5 Ml Vial INHALATION Q6HRT PRN Shortness Of Breath Morphine Sulfate 4 mg 04/11/23 21:47 04/12/23 03:38 Morphine Sulfate (*Crx) 2 Mg/Ml Inj IV PUSH 4 mg Q3H PRN Administration Pain Rated 7-10 Nicotine 1 patch 04/12/23 09:00 04/14/23 08:45 Nicotine (*Pbkc) 21 Mg Patch TRANSDERM Not Given QAM ARELI Ondansetron HCl 4 mg 04/11/23 16:02 04/12/23 16:32 Ondansetron Inj 4 Mg/2 Ml Vial IV PUSH 4 mg Q6H PRN Administration Nausea And Vomiting Pantoprazole Sodium 40 mg 04/12/23 09:00 04/14/23 09:28 Pantoprazole Sodium Iv 40 Mg Vial IV PUSH 40 mg QAM ARELI Administration Radiology Results: ITS Impressions Abdomen/Pelvis CT 04/11/23 08:59 IMPRESSION: 1. Recurrent early and/or partial small bowel obstruction with transition point again seen at a distal ileal small bowel anastomosis in the anterior left pelvis. 2. Fluid throughout the colon consistent with nonspecific diarrhea. Small Bowel X-Ray 04/12/23 15:55 IMPRESSION: 1. Dilated small bowel with slow transit of contrast, consistent with partial small bowel obstruction. Abdomen X-Ray 04/14/23 06:00 IMPRESSION: 1. Dilated small bowel in left abdomen, consistent with partial small bowel obstruction. Labs Labs: Laboratory Results - last 24 hr 04/14/23 05:08 WBC 9.0 RBC 4.25 Hgb 13.4 Hct 40.5 MCV 95.3 MCH 31.5 MCHC 33.1 RDW 13.2 Plt Count 255 MPV 10.0 Sodium 136 L Potassium 4.0 Chloride 108 H Carbon Dioxide 29 Anion Gap -1 L BUN < 2 L Creatinine 0.60 L Estim Creat Clear Calc 75 Estimated GFR > 60 Glucose 116 H Calcium 8.9
[2023-04-14 14:16] VITALS: BP 164/73; PULSE 64; RESP 18; TEMP 36.2; O2SAT 100
--- NOTE | 2023-04-14 15:18 | PM.DS ---
DS: Admitting Diagnosis Discharge Date FridayApril 14 Admitting Diagnosis Abdominal pain DS: Discharge Diagnosis Discharge Diagnosis (1) Small bowel obstruction: Code(s): K56.609 - Unspecified intestinal obstruction, unspecified as to partial versus complete obstruction Status: Acute Assessment and Plan: CT scan with small partial bowel obstruction in anterior left pelvis N/V/Diarhea Abdominal pain IV antiemetics and pain control with morphine IV protonix Surgery consult. Recommendations are appreciated. small bowel follow through ordered and shows slow transport of contrast consistent with SBO Tolerated full liquid diet for breakfast without pain or nausea. Will advance to low fiber for lunch and assess tolerance. (2) COPD (chronic obstructive pulmonary disease): Qualifiers: COPD type: unspecified COPD Qualified Code(s): J44.9 - Chronic obstructive pulmonary disease, unspecified Code(s): J44.9 - Chronic obstructive pulmonary disease, unspecified Status: Acute Assessment and Plan: Nocturnal and prn oxygen use at home LEVY 2 L NC albuterol inhaler ordered prn nebulizer (3) Tobacco dependence: Code(s): F17.200 - Nicotine dependence, unspecified, uncomplicated Status: Acute Assessment and Plan: Daily smoker Counseled on cessation Nicotine patch ordered Plan -up out of bed and walking halls -low fiber diet at lunch -potential discharge later today or in the morning. DS: Summary Hospital Course Hospital Course: Narrative: 62-year-old female with a past medical history of COPD with p.r.n. and nocturnal oxygen use, continued tobacco use, obstructive sleep apnea, and multiple prior bowel surgeries with recurrent bowel obstructions who presented to the ER with another bowel obstruction.? The patient reports that had is worse her pain is a 9/10 in intensity.? It is crampy.? It is accompanied by some nausea and 1 episode of emesis.? She reports that the pain started on the night of the around 19:00.? She thinks that the symptoms started after she had had some carrots and cucumbers earlier in the day.? She reports she cannot remember the last time she had fresh vegetables.? She thinks that she did not chew the carrots enough.? As the day progressed she became more bloated.? She had not had a bowel movement since the night before.? She denies any hematochezia or melena.? She has not had any fevers or chills.? She denies any chest pain.? She does have somewhat chronic shortness of breath that occasionally worsens due to her COPD.? Currently are breathing is at baseline.? She states that she wheezes all the time in this is unchanged.? She has nasal cannula oxygen in place.? She states she uses 2 L oxygen as needed during the day and all the time at night. The patient reports once her symptoms began she did try taking x-ray doses of Colace and MiraLax as well as some milk of magnesia to have a bowel movement.? When these efforts did not work she also tried ambulating around the house and only drank a clear liquid diet yesterday.? Despite these efforts her pain continued to worsen and she came to the ER.? She has subsequently been admitted for recurrent small-bowel obstruction with NG tube in place.? General surgery has been consulted.? She reports that her pain is moderately improved with IV morphine.? Nausea has improved after NG placement.? She reports her pain is now 4/10 in intensity. Interval History: 04/12:? Patient seen today resting in bed with NG tube placed.? She appears uncomfortable and states that she is having continued nausea despite her NG tube.? Contents in canister are thick and mullins.? I flushed the NG with 60 mL of water and cleared airport but little return contents.? Patient also complains of generalized lower quadrant abdominal pain pain.? She states that the pain is worse on the left side.? She says that she has long history of abdominal
== END 2023-04-14 18:20 | disposition home or self-care (01) | DRG 389 ==
LOC: ANHED 08:00 → ANH3MEDSUR 12:19 → ANH2MED 14:32
PROVIDERS: Admitting Provider Internal Medicine; Emergency Provider Preventive Medicine Aerospace Medicine; PCP Emergency Medicine; Visit Provider Nurse Practitioner Acute Care
DX: K56.609 Unspecified intestinal obstruction, unspecified as to partial versus complete obstruction (principal); J96.11 Chronic respiratory failure with hypoxia; J44.9 Chronic obstructive pulmonary disease, unspecified; G47.33 Obstructive sleep apnea (adult) (pediatric); D64.9 Anemia, unspecified; F41.8 Other specified anxiety disorders; E78.5 Hyperlipidemia, unspecified; K21.9 Gastro-esophageal reflux disease without esophagitis; E03.9 Hypothyroidism, unspecified; G62.9 Polyneuropathy, unspecified; G25.81 Restless legs syndrome; M41.9 Scoliosis, unspecified; F17.210 Nicotine dependence, cigarettes, uncomplicated; Z90.710 Acquired absence of both cervix and uterus; Z99.81 Dependence on supplemental oxygen; Z98.42 Cataract extraction status, left eye; Z98.41 Cataract extraction status, right eye; Z90.49 Acquired absence of other specified parts of digestive tract
CPT/HCPCS: 36415; 74018; 74177; 74250; 80048; 80053; 83605; 83690; 85025; 85027; 94640; 96361; 96374; 96375; 96376; 99285; A9270; C9113; G0378; J2270; J2405; J3480; J7030; J7040; Q9967

== ENCOUNTER 2023-04-18 09:57 | Outpatient (CLI) | payer MEDICARE, MEDICAID, SELFPAY ==
--- NOTE | ~2023-04-18 | MM_ITS ---
EXAMINATION: MM screening sail[place] BI w renato HISTORY: Screening TECHNIQUE: Craniocaudal and mediolateral oblique 3-D tomosynthesis images were obtained and synthetic 2-D images were generated. CAD analysis was submitted and interpreted. COMPARISON: No prior mammogram is available for comparison at this institution. BREAST PARENCHYMAL COMPOSITION: There are scattered areas of fibroglandular density. FINDINGS: There is no evidence of suspicious mass, calcification, or architectural distortion to sugg est malignancy in either breast. There has been no suspicious interval change. IMPRESSION: 1. No mammographic evidence of malignancy. 2. Recommend routine screening mammography in one year. BI-RADS Category 1: Negative Reviewed, dictated and finalized at location A.
== END 2023-04-18 09:58 | disposition home or self-care (01) ==
LOC: ANHIMG 10:00
PROVIDERS: PCP Emergency Medicine; Visit Provider Emergency Medicine
DX: Z12.31 Encounter for screening mammogram for malignant neoplasm of breast (principal)
CPT/HCPCS: 77063; 77067

== ENCOUNTER 2023-06-18 10:57 | Outpatient (CLI) | payer MEDICARE, MEDICAID, SELFPAY ==
--- NOTE | ~2023-06-18 | XR_ITS ---
Supine and upright views of the abdomen Clinical history: Abdominal pain Findings: There are dilated small bowel loops centrally in the abdomen. No free air identified. No ab normal mass lesion or calcification is seen. Cholecystectomy clips are present. Osseous structures ar e intact. Impression: Dilated central small bowel loops. Findings are suspicious for bowel obstruction. Reviewed, dictated and finalized at [facility]. Impression: Dilated central small bowel loops. Findings are suspicious for bowel obstructio n.
== END 2023-06-18 10:58 | disposition home or self-care (01) ==
PROVIDERS: PCP Emergency Medicine; Visit Provider Nurse Practitioner Family
DX: R10.84 Generalized abdominal pain (principal); R19.7 Diarrhea, unspecified; R93.5 Abnormal findings on diagnostic imaging of other abdominal regions, including retroperitoneum
CPT/HCPCS: 74018

== ENCOUNTER 2023-06-19 16:39 | Outpatient (CLI) | payer MEDICARE, MEDICAID, SELFPAY ==
[2023-06-19 10:53] LABS: Hematocrit 45.1 % (37.0-47.0); Hemoglobin 14.7 g/dL (12.0-15.0); Mean Corpuscular HGB Conc 32.6 g/dl (32-36); Mean Corpuscular Hemoglobin 30.9 pg (26-34); Mean Corpuscular Volume 94.9 fl (80-100); Mean Platelet Volume 9.7 fl (7.4-10.4); Platelet Count Result 310 k/mm3 (150-375); Red Blood Count 4.75 M/mm3 (4.2-5.4); Red Cell Distribution Width 13.7 % (11.5-14.5); White Blood Count 8.3 K/mm3 (4.5-10.0)
[2023-06-19 11:09] LABS: Alanine Aminotransferase 14 U/L (6-35); Albumin Level 4.4 g/dL (3.5-5.1); Alkaline Phosphatase 105 U/L (38-126); Anion Gap 6 mmol/L (8-16); Aspartate Amino Transferase 25 U/L (14-36); Bilirubin,Total 0.5 mg/dL (0.2-1.3); Blood Urea Nitrogen 12 mg/dL (7-17); CRP 0.6 mg/dL (<1.0); Calcium 9.1 mg/dL (8.4-10.2); Carbon Dioxide 27 mmol/L (22-30); Chloride 105 mmol/L (98-107); Estimated Glomerular Filt Rate > 60; Glucose 95 mg/dL (65-110); Potassium 3.9 mmol/L (3.4-5.0); Sodium 138 mmol/L (137-145)
[2023-06-19 11:44] LABS: Erythrocyte Sedimentation Rate 16 mm/hr (0-20)
[2023-06-19 19:38] LABS: Toxigenic C. Diff NEGATIVE (NEGATIVE)
[2023-06-22 21:11] LABS: Vitamin D 1,25 (OH)2 Total 69 pg/mL (18-72); Vitamin D2 1,25 (OH)2 <8 pg/mL; Vitamin D3 1,25 (OH)2 69 pg/mL
[2023-06-27 19:23] LABS: Pancreatic Elastase, Stool 470 mcg/g
[2023-06-27 23:42] LABS: Calprotectin, Stool 293 mcg/g
== END 2023-06-19 16:40 | disposition home or self-care (01) ==
PROVIDERS: Nurse Practitioner Family; PCP Emergency Medicine; Visit Provider Internal Medicine
DX: E55.9 Vitamin D deficiency, unspecified (principal); D64.9 Anemia, unspecified; R10.84 Generalized abdominal pain; R19.7 Diarrhea, unspecified
CPT/HCPCS: 36415; 80053; 82652; 82653; 83993; 84443; 85027; 85652; 86140; 87045; 87177; 87209; 87427; 87449; 87493

== ENCOUNTER 2023-06-29 18:07 | Inpatient (IN) | payer MEDICARE, MEDICAID, SELFPAY ==
--- NOTE | ~2023-06-29 | CT_ITS ---
EXAMINATION: CT abdomen pelvis w con DATE: 06/29/2023 19:30 INDICATION: Generalized abdominal pain TECHNIQUE: Computed tomography (CT) of the abdomen and pelvis was performed with 100 mL Omnipaque-350 intravenous contrast. Automated exposure control and iterative reconstruction technique were employe d. The dose-length product was 538.09 mGy-cm. COMPARISON: 04/11/2023. FINDINGS: Lower thorax: Emphysematous change. Partially visualized bladder anterior to the lingula. Dependent a telectasis. Liver: Left lobe cyst. Biliary/Gallbladder: Gallbladder is absent. Moderate intra and extrahepatic bile duct dilation, uncha nged. Pancreas: Pancreatic atrophy Spleen: Normal. Adrenals:No mass. Kidneys: No suspicious mass, obstructing stone, or hydronephrosis. Simple right lower pole cyst. Mult iple bilateral hypodensities too small to characterize. GI tract: Mild distal esophageal and moderate antral wall edema no large bowel dilation. Fluid-filled colon. Multiple loops of dilated small bowel in the central abdomen, increased since prior study, wi th slightly increased surrounding inflammatory change and fluid. No pneumatosis. Uniform bowel wall e nhancement. Mild twisting of the root of the small bowel mesentery. Transition point at the anastomos is in the left lower quadrant. Uncomplicated rectal anastomosis Appendix not visualized. Mesentery/Peritoneum: No ascites, mass, or free air. Retroperitoneum: No mass. Pelvis: Normal urinary bladder. Absent uterus. Soft Tissues: Soft tissues and body wall unremarkable. Bones: No acute osseous finding. IMPRESSION: Worsening small bowel ileus/partial obstruction, likely secondary to an anastomotic stricture. A comp onent of volvulus of the root of the small bowel mesentery also appears to be present. Fluid-filled colon as can be seen with diarrheal illness. Mild esophagitis and moderate antral gastritis. Reviewed, dictated and finalized at location [facility]. IMPRESSION: Worsening small bowel ileus/partial obstruction, likely secondary to an anastom otic stricture. A component of volvulus of the root of the small bowel mesenter y also appears to be present. Fluid-filled colon as can be seen with diarrheal illness. Mild esophagitis and moderate antral gastritis.
--- NOTE | ~2023-06-29 | XR_ITS ---
EXAMINATION: XR abdomen/kub 1V DATE: 07/02/2023 07:55 INDICATION: Small bowel obstruction. TECHNIQUE: A supine view of the abdomen on 2 radiographs was obtained. COMPARISON: Abdomen radiographs 07/01/2023 FINDINGS: There are no gas-filled dilated loops of bowel. The nasogastric tube tip is in the stomach. Surgical clips in the right upper quadrant are likely from cholecystectomy. There is mild atelectasi s in right midlung zone. There are old healed bilateral rib fractures. IMPRESSION: 1. Nonobstructive bowel gas pattern. Reviewed, dictated and finalized at location E.
--- NOTE | ~2023-06-29 | XR_ITS ---
EXAM: XR abdomen gastric tube insert DATE: 06/29/2023 21:56 HISTORY: NG tube insert . COMPARISON: CT abdomen and pelvis 06/29/2023. FINDINGS: Clear lung bases. NG tube, tip and side port projecting over the expected location of the stomach. Cholecystectomy clips. Contrast excretion in the bilateral ureters. Multiple loops of dilate d small bowel over the lower abdomen. IMPRESSION: NG tube, in good position. Small bowel ileus/obstruction. Reviewed, dictated and finalized at location [facility].
--- NOTE | ~2023-06-29 | XR_ITS ---
EXAM: XR abdomen/kub 1V DATE: 06/29/2023 18:41 HISTORY: pain ALL OVER ABDOMEN WITH N/V X 1 DAYS, hx of SBO . COMPARISON: 06/18/2023. FINDINGS: Senescent changes in the lung bases. Cholecystectomy clips. Single loop of dilated small b owel in the right mid abdomen. Enlarged spleen. Anastomotic sutures overlie the pelvis. Lumbar degene rative disc disease. Bilateral hip osteoarthritis IMPRESSION: Small bowel obstruction/ileus. Splenomegaly. Reviewed, dictated and finalized at location K.
--- NOTE | ~2023-06-29 | XR_ITS ---
EXAMINATION: XR sm bowel follow through DATE: 07/02/2023 13:20 INDICATION: Small bowel obstruction TECHNIQUE: Bundler radiograph(s) of the abdomen was/were obtained. Water-soluble oral contrast was admi nistered, and sequential radiographs of the abdomen were obtained until oral contrast was noted to be in the proximal colon. Spot fluoroscopic images of the small bowel were obtained. Fluoroscopy exposu re time was 0.1 minutes. A total of 9 overhead radiographs and 3 fluoroscopic images were recorded. COMPARISON: None. FINDINGS: Transit time from the stomach to proximal colon was approximately 15 minutes. There is normal caliber and mucosal fold pattern throughout the small bowel. Cholecystectomy clips in right upper quadrant. Likely rectoanal anastomotic suture line with additional suture line along the small bowel in the lef t hemipelvis. IMPRESSION: 1. No dilated bowel or delayed transit to the colon to suggest residual small bowel obstruction. Reviewed, dictated and finalized at location A. IMPRESSION: 1. No dilated bowel or delayed transit to the colon to suggest residual small b owel obstruction.
--- NOTE | ~2023-06-29 | XR_ITS ---
EXAMINATION: XR abdomen/kub 1V DATE: 06/30/2023 07:50 INDICATION: Small bowel obstruction. TECHNIQUE: A supine view of the abdomen on 2 radiographs was obtained. COMPARISON: CT abdomen and pelvis 06/29/2023 FINDINGS: The nasogastric tube tip is in the stomach. Surgical clips in the right upper quadrant are likely from cholecystectomy. There are dilated loops of small bowel. The colon is normal in caliber. IMPRESSION: 1. Dilated small bowel, consistent with small bowel obstruction. Reviewed, dictated and finalized at location E.
--- NOTE | ~2023-06-29 | XR_ITS ---
EXAMINATION: XR abdomen/kub 1V DATE: 07/01/2023 10:42 INDICATION: Small bowel obstruction. TECHNIQUE: A supine view of the abdomen was obtained. COMPARISON: CT abdomen and pelvis 06/29/2023 FINDINGS: There are no gas-filled dilated loops of bowel. The nasogastric tube tip is in the stomach. Surgical clips in the right upper quadrant are likely from cholecystectomy. IMPRESSION: 1. Nonobstructive bowel gas pattern. Reviewed, dictated and finalized at location E.
--- NOTE | ~2023-06-29 | XR_ITS ---
EXAMINATION: XR chest PICC line DATE: 07/02/2023 08:47 INDICATION: PICC line verification TECHNIQUE: frontal and lateral views of the chest were obtained. COMPARISON: Chest radiograph dated 08/14/2022 FINDINGS: Right upper extremity peripherally inserted central venous catheter (PICC) tip at the caudal superio r vena cava. Nasogastric tube extends into the stomach with distal tip, apical inferior margin of the [id number]. Unchanged linear band of discoid atelectasis/scarring at the right mid to lower lung zone. Increased opacity left lung base with blunting at the left costophrenic angle consistent with s mall left pleural effusion and associated basilar atelectasis and/or pneumonia. Increased lucency and architectural distortion in the upper lung zones consistent with emphysema better appreciated on CT dated 06/29/2023. The cardiomediastinal silhouette is normal. Chronic bilateral rib fractures. IMPRESSION: 1. Increased small left pleural effusion with left basilar atelectasis and/or pneumonia. When 2. Emphysema and unchanged mild discoid atelectasis in the right mid to lower lung zone. Reviewed, dictated and finalized at location A. IMPRESSION: 1. Increased small left pleural effusion with left basilar atelectasis and/or p neumonia. When 2. Emphysema and unchanged mild discoid atelectasis in the right mid to lower l kristine zone.
[2023-06-29 18:11] VITALS: BP 120/68; PULSE 80; RESP 16; TEMP 36.6; O2SAT 98
--- NOTE | 2023-06-29 18:24 | ED.ABDPAIN ---
HPI - Abdominal Pain General Chief Complaint: Abdominal Pain <Basim Villalta MD - Last Filed: 06/30/23 18:58> Stated Complaint: N/V SINCE 1700, HX OF SBO <Basim Villalta MD - Last Filed: 06/30/23 18:58> Time Seen by Provider: 06/29/23 18:18 <Basim Villalta MD - Last Filed: 06/30/23 18:58> History of Present Illness HPI narrative: This is a 62-year-old female, with history of cholecystitis, status postcholecystectomy and multiple small bowel obstructions, who returns emergency department complaining of abdominal pain concerning for small bowel obstruction. The patient states beginning yesterday afternoon evening, she began dry heaving multiple times. This was associated with worsening, generalized cramping abdominal pain, that has now reached a 9/10. She states her last bowel movement was this morning and last passed gas this morning. She states she ate this afternoon with significant worsening of her pain. <Basim Villalta MD - Last Filed: 06/30/23 18:58> Related Data Home Medications: Home Medications Medication Instructions Recorded Confirmed albuterol sulfate 90 mcg/actuation 2 inhalation inhalation Q4H PRN 09/21/19 06/29/23 aerosol inhaler (ProAir HFA) Shortness Of Breath Or Wheezing modafinil 200 mg tablet 200 mg PO QAM PRN sleep apnea 09/21/19 06/29/23 fluticasone fur. 100 mcg-umeclid 1 inh inhalation DAILY 03/28/22 06/29/23 62.5 mcg-vilant 25 mcg inhalat.powder (Trelegy Ellipta) polyethylene glycol 3350 17 17 g PO DAILY 04/11/23 06/29/23 gram/dose oral powder (Miralax) sennosides 8.6 mg-docusate sodium 8.6 tab-cap PO DAILY 06/29/23 06/29/23 50 mg tablet (Colace 2-In-1) <Basim Villalta MD - Last Filed: 06/30/23 18:58> Allergies/Adverse Reactions: Allergies Allergy/AdvReac Type Severity Reaction Status Date / Time latex Allergy Unknown unknown Verified 06/29/23 22:57 Penicillins Allergy Unknown unknown Verified 06/29/23 22:57 <Basim Villalta MD - Last Filed: 06/30/23 18:58> Review of Systems Review of Systems: CONSTITUTIONAL: Denies fever, chills, or sweats. CARDIOVASCULAR: Denies chest pain, palpitations, or edema. RESPIRATORY: Denies cough or dyspnea. GASTROINTESTINAL: Generalized abdominal pain, nausea and vomiting denies diarrhea. GENITOURINARY: Denies dysuria or hematuria. SKIN: Denies rash or itching. MUSCULOSKELETAL: Denies back pain, joint pain, or myalgia. NEUROLOGIC: Denies headache, numbness, dizziness, or weakness. PSYCHIATRIC: Denies anxiety or depression. <Basim Villalta MD - Last Filed: 06/30/23 18:58> [facility] Past Medical History Medical History: Medical History B12 deficiency Chronic back pain Chronic constipation Chronic obstructive pulmonary disease Chronic respiratory failure with hypoxia On 2 liters nasal cannula p.r.n. Depression with anxiety Dyslipidemia GERD without esophagitis History of vaginal delivery Hypothyroidism Iron deficiency anemia Migraine headache Mixed hyperlipidemia Obstructive sleep apnea Peripheral neuropathy Restless leg syndrome, controlled Scoliosis Small bowel obstruction due to adhesions Previous, multiple admissions for such. TIA (transient ischemic attack) (~2000) Vitamin D deficiency <Basim Villalta MD - Last Filed: 06/30/23 18:58> Surgical History Surgical History: Surgical History Bladder prolapse Repair of bladder prolapse. History of bilateral cataract extraction History of bowel resection 2010 low anterior resection History of cholecystectomy Open cholecystectomy History of colostomy History of colostomy reversal History of eye surgery Treatment of amblyopia. History of hysterectomy History of neck surgery History of tonsillectomy and adenoidectomy Rectal prolapse Rectal prolapse repair. Status post small bowel resection (
[2023-06-29 18:37] LABS: Basophils Absolute Auto 0.1 K/mm3 (0.0-0.1); Basophils Percent Auto 0.3 % (0.2-1.2); Eosinophils Absolute Auto 0.1 K/mm3 (0-0.3); Eosinophils Percent Auto 0.8 % (0-4.4); Hematocrit 47.5 % (37.0-47.0); Hemoglobin 15.4 g/dL (12.0-15.0); Immature Granulocyte Absolute 0.09 K/mm3 (0.00-0.031); Immature Granulocyte Percent A 0.6 % (0-0.5); Lymphocytes Absolute Auto 5.04 K/mm3 (0.9-3.2); Lymphocytes Percent Auto 31.8 % (18.3-44.2); Mean Corpuscular HGB Conc 32.4 g/dl (32-36); Mean Corpuscular Hemoglobin 30.9 pg (26-34); Mean Corpuscular Volume 95.2 fl (80-100); Mean Platelet Volume 9.9 fl (7.4-10.4); Monocytes Absolute Auto 0.8 K/mm3 (0.1-0.6); Monocytes Percent Auto 5.3 % (2.6-8.5); Neutrophils Absolute Auto 9.7 K/mm3 (1.3-6.7); Neutrophils Percent Auto 61.2 % (45.5-73.1); Platelet Count Result 354 k/mm3 (150-375); Red Blood Count 4.99 M/mm3 (4.2-5.4); Red Cell Distribution Width 13.7 % (11.5-14.5); White Blood Count 15.9 K/mm3 (4.5-10.0)
[2023-06-29] MEDS: MORPHINE SULFATE (*CRX) 4 MG/ML INJ IV PUSH (18:44)
[2023-06-29] MEDS: SODIUM CHLORIDE 0.9% IV 1,000 ML 999 ML IV CONT (18:44)
[2023-06-29] MEDS: ONDANSETRON INJ 4 MG/2 ML VIAL IV PUSH (18:44)
[2023-06-29 18:47] LABS: INR 0.9; Prothrombin Time 12.7 Seconds (11.1-14.7)
[2023-06-29 18:59] LABS: Alanine Aminotransferase 18 U/L (6-35); Albumin Level 4.6 g/dL (3.5-5.1); Alkaline Phosphatase 121 U/L (38-126); Anion Gap 11 mmol/L (8-16); Aspartate Amino Transferase 31 U/L (14-36); Bilirubin,Total 0.7 mg/dL (0.2-1.3); Blood Urea Nitrogen 15 mg/dL (7-17); Calcium 9.6 mg/dL (8.4-10.2); Carbon Dioxide 27 mmol/L (22-30); Chloride 100 mmol/L (98-107); Estimated CRCL calculation 62 ml/min; Estimated Glomerular Filt Rate > 60; Glucose 139 mg/dL (65-110); Lactic Acid Reflex 1.2 mmol/L (0.7-2.0); Potassium 3.5 mmol/L (3.4-5.0); Sodium 138 mmol/L (137-145)
[2023-06-29 19:35] VITALS: BP 148/68; PULSE 82; RESP 18; O2SAT 99
--- NOTE | 2023-06-29 21:12 | PM.IMHP ---
H&P: HPI History of Present Illness Date/Time: 06/29/23 21:12 Chief Complaint: ?I think I have another bowel obstruction.? Narrative: 62-year-old female with a past medical history of COPD, continued tobacco use, obstructive sleep apnea, multiple bowel surgeries and multiple recurrent bowel obstructions known to me from prior hospitalizations who presented back to the ER with abdominal pain and dry heaves similar to her usual bowel obstruction. She reports that pain started yesterday. She tried her usual measures with stool softeners, milk of magnesia and crackers and water only diet. Patient reports she had multiple bowel movements. Her pain improved in the evening hours. The following morning she felt good enough that she got up to go to sabianism. After sabianism she ate a solitary steak and some potatoes. Shortly thereafter she began having usual cramping Gnosticism toe type pain that was severe in intensity. The pain became so severe (9/10 intensity) that she could not even put on her shoes or get dressed. Her had to help her. She began having dry heaves again and decided to come to the ER for evaluation. She is still having bowel movements her last bowel movement was in the morning prior to going to sabianism. Her bowel movements for mushy watery and brown. She denies any fevers or chills. She is hearing her bowel sounds loudly like she usually does when she has a bowel obstruction. She reports feeling slightly more short of breath than usual. She has not been wheezing. She is still smoking. She denies any increased cough for recent ill contacts. Review of Systems Review of Systems: 12 systems were reviewed with pertinent positives and negatives per HPI. Except as documented in the HPI, all other systems were reviewed and are negative. [facility] Past Medical History Medical History (Updated 06/30/23 @ 03:22 by Vee eHrnandez DO) B12 deficiency Chronic back pain Chronic constipation Chronic obstructive pulmonary disease Chronic respiratory failure with hypoxia On 2 liters nasal cannula p.r.n. Depression with anxiety Dyslipidemia GERD without esophagitis History of vaginal delivery Hypothyroidism Iron deficiency anemia Migraine headache Mixed hyperlipidemia Obstructive sleep apnea Peripheral neuropathy Restless leg syndrome, controlled Scoliosis Small bowel obstruction due to adhesions Previous, multiple admissions for such. TIA (transient ischemic attack) (~2000) Vitamin D deficiency Surgical History Surgical History Bladder prolapse Repair of bladder prolapse. History of bilateral cataract extraction History of bowel resection 2010 low anterior resection History of cholecystectomy Open cholecystectomy History of colostomy History of colostomy reversal History of eye surgery Treatment of amblyopia. History of hysterectomy History of neck surgery History of tonsillectomy and adenoidectomy Rectal prolapse Rectal prolapse repair. Status post small bowel resection (~01/2019) Exploratory laparotomy with resection of 36 centimeters of the small bowel with extensive adhesiolysis and ileal-ileal anastomosis. [place] teeth removed Family History Family History Father Cirrhosis Alcoholism Mother Emphysema of lung Alcoholism Sibling No problems noted. Social History Social History Social History: The patient lives in [place] with her significant other, Luis Fernando. They have been together since 1997. 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 She smoked about a pack of cigarettes per day since she was in her 20s. She denies alcohol and illicit substance abuse. She designates her son, Rohit, as her surrogate decision maker and she wishes to be a full code. Smoking packs per day: 1 Smoking cigarettes per day: 20.0 Y
--- NOTE | 2023-06-29 22:18 | ADMGEN ---
This patient, Rebecca Ricci, was admitted to [facility] Surg Room 328-01. Patient/family oriented to hospital policies and general routines including ID bracelet, bed and alarms, visiting hours, pain management, procedures, bathroom and other care routines, personal items, smoking policy, room service/diet, and visiting hours. Information on how to activate the Rapid Response Team has been discussed. Patient/Family are encouraged to report perceived risks to care and to ask questions if they do not understand what they are told or what they should do.
[2023-06-29 22:21] VITALS: BMI 28.3
[2023-06-29 22:25] VITALS: BP 141/70; PULSE 88; RESP 18; TEMP 36.6; O2SAT 95
[2023-06-29] MEDS: SODIUM CHLORIDE 0.9% IV 1,000 ML 125 ML IV CONT (23:29)
[2023-06-30] MEDS: MORPHINE SULFATE (*CRX) 4 MG/ML INJ IV PUSH ×4 (02:02→17:54)
[2023-06-30 06:00] VITALS: BP 128/66; PULSE 61; RESP 16; TEMP 36.6; O2SAT 99
[2023-06-30 06:37] LABS: Hematocrit 42.1 % (37.0-47.0); Hemoglobin 12.9 g/dL (12.0-15.0); Mean Corpuscular HGB Conc 30.6 g/dl (32-36); Mean Corpuscular Hemoglobin 30.1 pg (26-34); Mean Corpuscular Volume 98.4 fl (80-100); Platelet Count Result 262 k/mm3 (150-375); Red Blood Count 4.28 M/mm3 (4.2-5.4); Red Cell Distribution Width 13.7 % (11.5-14.5); White Blood Count 5.8 K/mm3 (4.5-10.0)
[2023-06-30] MEDS: SODIUM CHLORIDE 0.9% IV 1,000 ML 125 ML IV CONT ×2 (07:50→16:03)
[2023-06-30 08:00] VITALS: O2SAT 99
[2023-06-30] MEDS: PANTOPRAZOLE SODIUM IV 40 MG VIAL IV PUSH (08:16)
[2023-06-30] MEDS: ENOXAPARIN 40 MG/0.4 ML SYRINGE SUB-Q (08:17)
[2023-06-30] MEDS: ONDANSETRON INJ 4 MG/2 ML VIAL IV PUSH ×4 (08:28→23:24)
[2023-06-30 09:48] VITALS: PULSE 88; RESP 18; O2SAT 97
[2023-06-30] MEDS: FLUTICASONE/UMECLIDIN/VILANTER 100-62.5-25 MCG ELLIPTA 1 PUFF INHALATION (09:48)
--- NOTE | 2023-06-30 10:24 | PM.CNGS ---
Assessment and Plan Assessment and plan (1) Small bowel obstruction: Code(s): K56.609 - Unspecified intestinal obstruction, unspecified as to partial versus complete obstruction Status: Acute Assessment and Plan: CT reviewed and discussed with the patient. CT suggests partial small bowel obstruction with a transition point at the anastomosis in the left lower quadrant. We would recommend to continue with NG tube decompression, bowel rest, IV fluids, and analgesics for now. Could plan for a water soluble small bowel follow through after a few days to further evaluate the bowel obstruction, depending on how she is progressing. Will monitor with serial abdominal exams and abdominal x-rays daily. (2) H/O major abdominal surgery: Code(s): Z98.890 - Other specified postprocedural states Status: Acute Assessment and Plan: She has an extensive history of abdominal surgeries in the past and her issues could be related to intraabdominal adhesions or potentially an anastomotic stricture. Continue to treat conservatively for now as mentioned above. Small bowel follow through could help assess for a stricture at the small bowel anastomosis. She is scheduled for upper endoscopy and colonoscopy next month as she has had an increase in frequency of her abdominal symptoms over the past year. (3) COPD (chronic obstructive pulmonary disease): Qualifiers: COPD type: unspecified COPD Qualified Code(s): J44.9 - Chronic obstructive pulmonary disease, unspecified Code(s): J44.9 - Chronic obstructive pulmonary disease, unspecified Status: Acute Assessment and Plan: Increases surgical risks. (4) Chronic respiratory failure with hypoxia: Code(s): J96.11 - Chronic respiratory failure with hypoxia Status: Chronic Assessment and Plan: Increases surgical risks. (5) Obstructive sleep apnea: Code(s): G47.33 - Obstructive sleep apnea (adult) (pediatric) Status: Chronic Plan I have discussed the patient's case and plan of care with Dr. Villarreal. Thank you for allowing us to see the patient in consultation and we will continue to follow along with you. History of Present Illness Consult details Consult date: 06/30/23 Reason for consult: other (Small bowel obstruction) Narrative: This is a 62-year-old woman with a history of COPD on 2 liters of home oxygen as needed, continued tobacco use, and obstructive sleep apnea, who is known to our service for previous small-bowel obstructions and has an extensive history of multiple abdominal surgeries. She has had 2 hospitalizations for small-bowel obstruction that was treated with NG tube decompression since August of 2022, with the last hospitalization being in April. She has had an open cholecystectomy and multiple surgeries following a hysterectomy and rectovaginal fistula. She had a diverting colostomy, but then later had resection and repair of the fistula. The colostomy was later reversed. She has since had multiple small-bowel obstructions and had a laparotomy in 2018 with small bowel resection that required 2-1/2 hours of adhesiolysis. Other episodes have successfully been treated with NG tube decompression when hospitalized. If she has obstructive symptoms at home, she will typically try a liquid diet and laxatives to see if this will resolve at home. She developed abdominal pain 2 days ago and tried using stool softeners, milk of magnesia, and backed off her diet to only taking water and crackers. She then had multiple bowel movements and her pain improved into the evening. Yesterday morning, she felt good enough to go to [employer] and ate some steak and potatoes. Shortly after, she began having abdominal cramping that began to intensify. She developed dry heaving and decided to come to the ER for evaluation. [place] [address]. Lactic acid 1.2. CT scan of the abdomen and pelvis showed worsen
[2023-06-30 11:41] VITALS: BMI 28.3
[2023-06-30 14:00] VITALS: BP 148/86; PULSE 55; RESP 16; TEMP 35.7; O2SAT 98
--- NOTE | 2023-06-30 19:14 | PM.IMPN ---
Progress Note: A&P Assessment and Plan (1) Small bowel obstruction: Code(s): K56.609 - Unspecified intestinal obstruction, unspecified as to partial versus complete obstruction Status: Acute (2) COPD (chronic obstructive pulmonary disease): Qualifiers: COPD type: unspecified COPD Qualified Code(s): J44.9 - Chronic obstructive pulmonary disease, unspecified Code(s): J44.9 - Chronic obstructive pulmonary disease, unspecified Status: Acute (3) Acute generalized abdominal pain: Code(s): R10.84 - Generalized abdominal pain Status: Acute (4) GERD without esophagitis: Code(s): K21.9 - Gastro-esophageal reflux disease without esophagitis Status: Acute (5) Leukocytosis: Code(s): D72.829 - Elevated white blood cell count, unspecified Status: Acute (6) H/O major abdominal surgery: Code(s): Z98.890 - Other specified postprocedural states Status: Acute Plan 1. SBO with volvulus and transition point Hx of abd surgeries Patient has small-bowel obstruction.? CT does demonstrate possible volvulus.? General surgery has been consulted.? Patient would prefer to manage symptoms with conservative therapy as this is been successful for her in the past.? NG is in place to low intermittent suction.? Repeat KUB has been ordered for a.m..? General surgery has been consulted.? P.r.n. pain medications and nausea medications have been ordered. 06/30: Gen surg consulted. Recommended conservative management has an ngt, is npo except for ice chips switched to d5 1/2 ns at 100 ml/hr Will need tpn if not taking CLD tomorrow Appreciate general surgery consultation Per general surgery: Could plan for a water soluble small bowel follow through after a few days to further evaluate the bowel obstruction, depending on how she is progressing. Will monitor with serial abdominal exams and abdominal x-rays daily. Scheduled for upper endoscopy and colonoscopy next month 2. Leukocytosis Patient does have some mild leukocytosis but no reports the symptoms that are concerning for infection.? Will repeat CBC in a.m..? 06/30: resolved with conservative management 3. COPD with tobacco use Patient has chronic COPD with continued tobacco use.? Patient is not interested in additional tobacco cessation information.? And a nicotine patch and nicotine gum were ordered but the patient prefers to not have any supplementation.? She reports that the patches break her out in that she does not like the taste of the nicotine gum in she is afraid it would make her more nauseated.? Given that she is reporting occasional increased shortness of breath will provide nebulizer treatments.? Patient states that she does have nebulizer treatments available home but rarely uses them.? Will continue the patient's home inhaled corticosteroid.? Will continue supplemental oxygen as needed for sleep. 4. GERD Will switch the patient's PPI therapy to IV formulation given NPO status. Patient has been admitted as observation status. Time Spent With Patient Time: 30 min Subjective Date/time seen: 06/30/23 19:14 Interval history: pt symptoms have improved with ngt and conservative management Review of Systems Review of Systems: no additional Exam Narrative: Const:?? Other: No acute d istress, well-deve loped well-nourish ed ? HENMT:?? Other: NG in plac e, no oral pharyng eal erythema mucou s membranes are ta cky, dry lips ? Eyes:?? Other: Pupils are equal and reactiv e, no scleral icte shanelle, no conjunctiv al pallor ? Neck:?? Other: Trachea mi dline, supple ? Resp:?? Other: Decreased
[2023-06-30] MEDS: DEXTROSE 5%/0.45% SOD CHL 1,000 ML 100 ML IV CONT (20:06)
[2023-06-30 21:46] VITALS: BP 154/75; PULSE 78; RESP 14; TEMP 36.5; O2SAT 90
[2023-06-30 23:02] LABS: Anion Gap 0 mmol/L (8-16); Blood Urea Nitrogen 10 mg/dL (7-17); Calcium 8.5 mg/dL (8.4-10.2); Carbon Dioxide 29 mmol/L (22-30); Chloride 106 mmol/L (98-107); Estimated CRCL calculation 71 ml/min; Estimated Glomerular Filt Rate > 60; Glucose 96 mg/dL (65-110); Potassium 4.1 mmol/L (3.4-5.0); Sodium 135 mmol/L (137-145)
[2023-07-01 05:39] VITALS: BP 152/73; PULSE 57; RESP 13; TEMP 36.2; O2SAT 93
[2023-07-01] MEDS: DEXTROSE 5%/0.45% SOD CHL 1,000 ML 100 ML IV CONT ×2 (05:41→16:21)
[2023-07-01] MEDS: FLUTICASONE/UMECLIDIN/VILANTER 100-62.5-25 MCG ELLIPTA 1 PUFF INHALATION (08:14)
[2023-07-01] MEDS: PANTOPRAZOLE SODIUM IV 40 MG VIAL IV PUSH (08:48)
[2023-07-01] MEDS: ENOXAPARIN 40 MG/0.4 ML SYRINGE SUB-Q (08:48)
[2023-07-01] MEDS: MORPHINE SULFATE (*CRX) 2 MG/ML INJ IV PUSH ×3 (09:09→21:38)
--- NOTE | 2023-07-01 12:32 | PM.PNGS ---
Progress Note: A&P Assessment and Plan (1) Small bowel obstruction: Code(s): K56.609 - Unspecified intestinal obstruction, unspecified as to partial versus complete obstruction Status: Acute Assessment and Plan: Clinically improving with NG tube decompression. KUB this morning showed normal bowel gas pattern. Will continue NG tube, bowel rest, and IV fluids again today. Will repeat a KUB tomorrow morning. Possibly proceed with water soluble small bowel follow through tomorrow depending on how she is progressing. (2) COPD (chronic obstructive pulmonary disease): Qualifiers: COPD type: unspecified COPD Qualified Code(s): J44.9 - Chronic obstructive pulmonary disease, unspecified Code(s): J44.9 - Chronic obstructive pulmonary disease, unspecified Status: Acute (3) Chronic respiratory failure with hypoxia: Code(s): J96.11 - Chronic respiratory failure with hypoxia Status: Chronic Plan I have discussed the patient's case and plan of care with Dr. Villarreal. Subjective Subjective Date/Time Seen: 07/01/23 12:32 Patient reports: no new complaints, feels better, flatus and no bowel movement Interval history: Patient feeling better today. Still reporting some mild abdominal cramping, but much better. Reports some soreness, but reports tenderness is much better. No other complaints at this time.NG with 300 cc out yesterday, no documented output overnight. Exam Const: General: comfortable, no acute distress and awake GI: Inspection: non-distended GI Palp: Yes Soft to palpation, Yes Tenderness to palpation present (GI) (mild lower abdominal tenderness, much improved), No Guarding due to palpation present (GI) and No Rebound tenderness present Auscultation: Hypoactive bowel sounds present Objective Data Vital Signs Vital Signs: Vital Signs - 24 hr 06/30/23 14:00 06/30/23 21:46 06/30/23 20:00 Temperature 96.2 F L 97.7 F Pulse Rate 55 L 78 Respiratory Rate 16 14 Blood Pressure 148/86 H 154/75 H Pulse Oximetry 98 90 Oxygen Delivery Room Air 07/01/23 05:39 07/01/23 09:30 Temperature 97.1 F L Pulse Rate 57 L Respiratory Rate 13 Blood Pressure 152/73 H Pulse Oximetry 93 Oxygen Delivery Room Air Intake/Output Intake/Output: Intake & Output 06/28/23 06/29/23 06/30/23/31/23 23:59 23:59 23:59 23:59 Intake Total 1000 2024 1000 Output Total 1350 1300 Balance 1000 675 -300 Meds/Results Medications: Active Medications Generic Name Dose Route Start Last Admin Trade Name Freq PRN Reason Stop Dose Admin Albuterol 2 puff 06/30/23 03:24 Albuterol Sulfate (*Sp) Aerosol 1 Puff INHALATION Q4HRT PRN Shortness Of Breath Or Wheezin Albuterol 5 mg 06/30/23 05:40 Albuterol Sulfate Neb 2.5 Mg/3 Ml Inh INHALATION Q6HRT PRN Shortness Of Breath Enoxaparin Sodium 40 mg 06/30/23 09:00 07/01/23 08:48 Enoxaparin 40 Mg/0.4 Ml Syringe SUB-Q 40 mg DAILY ARELI Administration Fluticasone/Umeclidinium/Vilanterol 1 puff 06/30/23 08:00 07/01/23 08:14 Fluticasone/Umeclidin/Vilanter 100-62.5-25 Mcg Ellipta INHALATION 1 puff DAILYRT ARELI Administration Dextrose/Sodium Chloride 1,000 mls @ 100 mls/hr 06/30/23 19:20 07/01/23 05:41 Dextrose 5% Sodium Chloride 0.45% IV CONT 100 mls/hr .Q10H ARELI Administration Ipratropium [place] 0.5 mg 06/30/23 05:40 Ipratropium Br 0.02% Inh Soln 0.5 Mg/2.5 Ml Vial INHALATION Q6HRT PRN Shortness Of Breath Morphine Sulfate 4 mg 06/29/23 21:05 06/30/23 17:54 Morphine Sulfate (*Crx) 4 Mg/Ml Inj IV PUSH 4 mg Q2H PRN Administration Pain Rated 7-10 Morphine Sulfate 2 mg 06/30/23 11:30 07/01/23 09:09 Morphine Sulfate (*Crx) 2 Mg/Ml Inj IV PUSH 2 mg Q2H PRN Administration Pain Rated 4-6 Ondansetron HCl 4 mg 06/29/23 21:05 06/30/23 23:24 Ondansetron Inj 4 Mg/2 Ml Vial IV PUSH 4 mg Q4H PRN Administration Nausea Panto
[2023-07-01 13:56] VITALS: BP 140/73; PULSE 66; RESP 18; TEMP 36.6; O2SAT 96
[2023-07-01 20:15] VITALS: O2SAT 96
--- NOTE | 2023-07-01 21:14 | PM.IMPN ---
Progress Note: A&P Assessment and Plan (1) GERD without esophagitis: Code(s): K21.9 - Gastro-esophageal reflux disease without esophagitis Status: Acute (2) Small bowel obstruction: Code(s): K56.609 - Unspecified intestinal obstruction, unspecified as to partial versus complete obstruction Status: Acute (3) Acute generalized abdominal pain: Code(s): R10.84 - Generalized abdominal pain Status: Acute (4) Nausea & vomiting: Qualifiers: Vomiting type: unspecified Qualified Code(s): R11.2 - Nausea with vomiting, unspecified Code(s): R11.2 - Nausea with vomiting, unspecified Status: Acute (5) Partial small bowel obstruction: Code(s): K56.600 - Partial intestinal obstruction, unspecified as to cause Status: Acute (6) Volvulus: Code(s): K56.2 - Volvulus Status: Acute (7) Chronic constipation: Code(s): K59.09 - Other constipation Status: Acute (8) Small bowel obstruction: Code(s): K56.609 - Unspecified intestinal obstruction, unspecified as to partial versus complete obstruction Status: Acute (9) Diffuse abdominal pain: Code(s): R10.84 - Generalized abdominal pain Status: Acute (10) Diarrhea: Code(s): R19.7 - Diarrhea, unspecified Status: Acute (11) Obesity (BMI 30-39.9): Code(s): E66.9 - Obesity, unspecified Status: Acute (12) SBO (small bowel obstruction): Code(s): K56.609 - Unspecified intestinal obstruction, unspecified as to partial versus complete obstruction Status: Acute (13) COPD (chronic obstructive pulmonary disease): Qualifiers: COPD type: unspecified COPD Qualified Code(s): J44.9 - Chronic obstructive pulmonary disease, unspecified Code(s): J44.9 - Chronic obstructive pulmonary disease, unspecified Status: Acute Plan 1. SBO with volvulus and transition point Hx of abd surgeries Patient has small-bowel obstruction.? CT does demonstrate possible volvulus.? General surgery has been consulted.? Patient would prefer to manage symptoms with conservative therapy as this is been successful for her in the past.? NG is in place to low intermittent suction.? Repeat KUB has been ordered for a.m..? General surgery has been consulted.? P.r.n. pain medications and nausea medications have been ordered. 06/30: Gen surg consulted. Recommended conservative management has an ngt, is npo except for ice chips switched to d5 1/2 ns at 100 ml/hr Will need tpn if not taking CLD tomorrow Appreciate general surgery consultation Per general surgery: Could plan for a water soluble small bowel follow through after a few days to further evaluate the bowel obstruction, depending on how she is progressing. Will monitor with serial abdominal exams and abdominal x-rays daily. Scheduled for upper endoscopy and colonoscopy next month 07/01: Per gen surg- Clinically improving with NG tube decompression. KUB this morning showed normal bowel gas pattern. Will continue NG tube, bowel rest, and IV fluids again today. Will repeat a KUB tomorrow morning. Possibly proceed with water soluble small bowel follow through tomorrow depending on how she is progressing. At this point pt needs to start TPN. Cannot have ongoing M-IVF. on prn pain meds for sbo. picc line ordered for tomorrow for central line placement for TPN 2. Leukocytosis Patient does have some mild leukocytosis but no reports the symptoms that are concerning for infection.? Will repeat CBC in a.m..? 06/30: resolved with conservative management 3. COPD with tobacco use Patient has chronic COPD with continued tobacco use.? Patient is not interested in additional tobacco cessation information.? And a nicotine patch and nicotine gum were ordered but the patient prefers to not have any supplementation.? She reports that the patches break her out in that she does not like the taste of the nicotine gum in she is afraid it wo
[2023-07-01 21:35] VITALS: BP 154/73; PULSE 57; RESP 13; TEMP 36.7; O2SAT 93
[2023-07-02] VITALS (9 sets, daily range): BP systolic 121–156; BP diastolic 73–129; PULSE 56–92; RESP 13–22; TEMP 36.2–36.9; O2SAT 91–100
[2023-07-02] MEDS: DEXTROSE 5%/0.45% SOD CHL 1,000 ML 100 ML IV CONT ×2 (02:19→08:57)
[2023-07-02 07:23] LABS: Hematocrit 41.5 % (37.0-47.0); Hemoglobin 13.4 g/dL (12.0-15.0); Mean Corpuscular HGB Conc 32.3 g/dl (32-36); Mean Corpuscular Hemoglobin 30.9 pg (26-34); Mean Corpuscular Volume 95.6 fl (80-100); Mean Platelet Volume 10.4 fl (7.4-10.4); Platelet Count Result 240 k/mm3 (150-375); Red Blood Count 4.34 M/mm3 (4.2-5.4); Red Cell Distribution Width 13.2 % (11.5-14.5); White Blood Count 7.1 K/mm3 (4.5-10.0)
[2023-07-02 07:50] LABS: Anion Gap 3 mmol/L (8-16); Calcium 8.6 mg/dL (8.4-10.2); Carbon Dioxide 31 mmol/L (22-30); Chloride 102 mmol/L (98-107); Estimated CRCL calculation 102 ml/min; Estimated Glomerular Filt Rate > 60; Glucose 128 mg/dL (65-110); Potassium 2.9 mmol/L (3.4-5.0); Sodium 136 mmol/L (137-145)
[2023-07-02] MEDS: LIDOCAINE HCL 1% PF INJ 5 ML VIAL INFILTRATE (08:10)
[2023-07-02 08:29] LABS: Blood Urea Nitrogen < 2 mg/dL (7-17)
[2023-07-02] MEDS: PANTOPRAZOLE SODIUM IV 40 MG VIAL IV PUSH (08:57)
[2023-07-02] MEDS: ENOXAPARIN 40 MG/0.4 ML SYRINGE SUB-Q (09:12)
[2023-07-02] MEDS: FLUTICASONE/UMECLIDIN/VILANTER 100-62.5-25 MCG ELLIPTA 1 PUFF INHALATION (09:31)
--- NOTE | 2023-07-02 12:54 | PC.NURSE ---
On 07/02/23, the student, [Kevin Mak ], provided care and completed [facility] documentation on this patient. I have reviewed the student's documentation and agree with the findings.
[2023-07-02] MEDS: ONDANSETRON INJ 4 MG/2 ML VIAL IV PUSH (13:32)
[2023-07-02 13:42] LABS: Glucose Point of Care 117 mg/dl (65-105)
--- NOTE | 2023-07-02 13:47 | PM.PNGS ---
Progress Note: A&P Assessment and Plan (1) Small bowel obstruction: Code(s): K56.609 - Unspecified intestinal obstruction, unspecified as to partial versus complete obstruction Status: Acute Assessment and Plan: Obstruction has again resolved with conservative treatment. Patient has had recurrences of this several times. She has appointments to see GI for upper and lower endoscopy. If her anastomosis can be accessed, she may be able to have balloon dilatation and avoid further surgery. If this is not able to be accomplished, I would be happy to see her in the office and consider exploratory laparotomy and adhesiolysis for her recurrent small-bowel obstructions. At present, will discontinue NG tube and start full liquids. She can resume her oral medications. Possibly home tomorrow if tolerating oral intake well. (2) H/O major abdominal surgery: Code(s): Z98.890 - Other specified postprocedural states Status: Chronic Assessment and Plan: Will make exploration for recurrent SBO very challenging. See above. Subjective Subjective Date/Time Seen: 07/02/23 13:47 Patient reports: no new complaints, feels better, pain is less, bowel movement and afebrile Interval history: Feels good. Had bowel movements in x-ray after her small-bowel series this morning. Small-bowel follow-through showed no obstruction and transit time to the colon was only 15 minutes. Review of Systems Review of Systems: All systems reviewed & are unremarkable except as noted in HPI and below (HPI) Exam Const: General: comfortable and no acute distress Orientation/consciousness: patient oriented x3 GI: Inspection: non-distended, scar and no visible herniation GI Palp: No abdominal tenderness, Yes Soft to palpation, No Tenderness to palpation present (GI), No Guarding due to palpation present (GI), No Hernia present, No Palpable mass present and No Rebound tenderness present Auscultation: normal bowel sounds Neuro: General: patient oriented x3 and no focal motor deficits Extrem: General: no calf tenderness and no edema Psych: Affect: normal affect Insight: Good insight present (Psych) Judgement: Good judgement present (Psych) Objective Data Vital Signs Vital Signs: Vital Signs - 24 hr 07/01/23 13:56 07/01/23 20:15 07/01/23 21:35 Temperature 36.6 C 36.7 C Pulse Rate 66 57 L Respiratory Rate 18 13 Blood Pressure 140/73 154/73 H Pulse Oximetry 96 96 93 Oxygen Delivery Nasal Cannula Oxygen Flow Rate 2 07/02/23 05:48 07/02/23 09:32 07/02/23 09:15 Temperature 36.2 C L Pulse Rate 56 L Respiratory Rate 13 18 Blood Pressure 156/73 H Pulse Oximetry 100 94 100 Oxygen Delivery Room Air Oxygen Flow Rate 07/02/23 10:15 Temperature Pulse Rate Respiratory Rate 22 H Blood Pressure Pulse Oximetry 92 Oxygen Delivery Oxygen Flow Rate Intake/Output Intake/Output: Intake & Output 06/29/23 06/30/23 07/01/23 07/02/23 23:59 23:59 23:59 23:59 Intake Total 1000 2024 1999 1999 Output Total 1350 1300 2200 Balance 1000 675 700 -200 Meds/Results Medications: Active Medications Generic Name Dose Route Start Last Admin Trade Name Freq PRN Reason Stop Dose Admin Albuterol 2 puff 06/30/23 03:24 Albuterol Sulfate (*Sp) Aerosol 1 Puff INHALATION Q4HRT PRN Shortness Of Breath Or Wheezin Albuterol 5 mg 06/30/23 05:40 Albuterol Sulfate Neb 2.5 Mg/3 Ml Inh INHALATION Q6HRT PRN Shortness Of Breath Cyclobenzaprine HCl 5 mg 07/02/23 13:42 Cyclobenzaprine Hcl 5 Mg Tablet PO TID PRN muscle spasm Enoxaparin Sodium 40 mg 06/30/23 09:00 07/02/23 09:12 Enoxaparin 40 Mg/0.4 Ml Syringe SUB-Q 40 mg DAILY ARELI Administration Fluticasone/Umeclidinium/Vilanterol 1 puff 06/30/23 08:00 07/02/23 09:31 Fluticasone/Umeclidin/Vilanter 100-62.5-25 Mcg Ellipta INHALATION 1 puff DAILYRT ARELI Administration Dextrose 1,000 mls @ 50
[2023-07-02] MEDS: CENTRAL LINE FLUSH 10 ML IV PUSH ×2 (15:50→20:45)
--- NOTE | 2023-07-02 16:57 | PM.IMPN ---
Progress Note: A&P Assessment and Plan (1) Small bowel obstruction: Code(s): K56.609 - Unspecified intestinal obstruction, unspecified as to partial versus complete obstruction Status: Acute (2) Partial small bowel obstruction: Code(s): K56.600 - Partial intestinal obstruction, unspecified as to cause Status: Acute (3) COPD (chronic obstructive pulmonary disease): Qualifiers: COPD type: unspecified COPD Qualified Code(s): J44.9 - Chronic obstructive pulmonary disease, unspecified Code(s): J44.9 - Chronic obstructive pulmonary disease, unspecified Status: Acute (4) Leukocytosis: Code(s): D72.829 - Elevated white blood cell count, unspecified Status: Acute (5) Hypertension: Code(s): I10 - Essential (primary) hypertension Status: Acute (6) GERD without esophagitis: Code(s): K21.9 - Gastro-esophageal reflux disease without esophagitis Status: Acute Plan 1. SBO with volvulus and transition point Hx of abd surgeries Patient has small-bowel obstruction.? CT does demonstrate possible volvulus.? General surgery has been consulted.? Patient would prefer to manage symptoms with conservative therapy as this is been successful for her in the past.? NG is in place to low intermittent suction.? Repeat KUB has been ordered for a.m..? General surgery has been consulted.? P.r.n. pain medications and nausea medications have been ordered. 06/30: Gen surg consulted. Recommended conservative management has an ngt, is npo except for ice chips switched to d5 1/2 ns at 100 ml/hr Will need tpn if not taking CLD tomorrow Appreciate general surgery consultation Per general surgery: Could plan for a water soluble small bowel follow through after a few days to further evaluate the bowel obstruction, depending on how she is progressing. Will monitor with serial abdominal exams and abdominal x-rays daily. Scheduled for upper endoscopy and colonoscopy next month 07/01: Per gen surg- Clinically improving with NG tube decompression. KUB this morning showed normal bowel gas pattern. Will continue NG tube, bowel rest, and IV fluids again today. Will repeat a KUB tomorrow morning. Possibly proceed with water soluble small bowel follow through tomorrow depending on how she is progressing. At this point pt needs to start TPN. Cannot have ongoing M-IVF. on prn pain meds for sbo. picc line ordered for tomorrow for central line placement for TPN 07/02: advanced to FLD with general surgery. never received TPN. IVF cancelled. potential dc tomorrow. small bowel xr series neg. 2. Leukocytosis Patient does have some mild leukocytosis but no reports the symptoms that are concerning for infection.? Will repeat CBC in a.m..? 06/30: resolved with conservative management 3. COPD with tobacco use Patient has chronic COPD with continued tobacco use.? Patient is not interested in additional tobacco cessation information.? And a nicotine patch and nicotine gum were ordered but the patient prefers to not have any supplementation.? She reports that the patches break her out in that she does not like the taste of the nicotine gum in she is afraid it would make her more nauseated.? Given that she is reporting occasional increased shortness of breath will provide nebulizer treatments.? Patient states that she does have nebulizer treatments available home but rarely uses them.? Will continue the patient's home inhaled corticosteroid.? Will continue supplemental oxygen as needed for sleep. 4. GERD Will switch the patient's PPI therapy to IV formulation given NPO status. 5. HTN start amlodipine tomorrow Patient has been admitted as observation status. Time Spent With Patient Time: 30 min Potential dc tomorrow if she tolerates FLD Has outpt f/u with general surgery and gastroenterology Time Spent With Patient Time: 30 min Subjective Date/time seen: 07/02/23 16:57 Interval history: pt having no abd rene
[2023-07-02] MEDS: CYCLOBENZAPRINE HCL 5 MG TABLET PO (20:30)
--- NOTE | 2023-07-02 20:36 | PC.NURSE ---
pt reported 2nd bloody stool states hx hemorrhoids, informed hospitalist.
--- NOTE | 2023-07-02 20:45 | PC.NURSE ---
occult stool ordered and cbc for report of bright red bloody stools.
[2023-07-03] VITALS (8 sets, daily range): BP systolic 123–140; BP diastolic 58–80; PULSE 65–86; RESP 16–20; TEMP 36.3–36.8; O2SAT 92–98
[2023-07-03 03:01] LABS: IFOB Positive Control Positive; Immunochemical Fecal Occult Bl Positive (N)
[2023-07-03] MEDS: CENTRAL LINE FLUSH 10 ML IV PUSH ×2 (04:40→15:29)
[2023-07-03 05:50] LABS: Hematocrit 39.3 % (37.0-47.0); Hemoglobin 13.2 g/dL (12.0-15.0); Mean Corpuscular HGB Conc 33.6 g/dl (32-36); Mean Corpuscular Volume 92.3 fl (80-100); Mean Platelet Volume 9.8 fl (7.4-10.4); Platelet Count Result 268 k/mm3 (150-375); Red Blood Count 4.26 M/mm3 (4.2-5.4); Red Cell Distribution Width 13.1 % (11.5-14.5); White Blood Count 9.4 K/mm3 (4.5-10.0)
--- NOTE | 2023-07-03 06:02 | PC.NURSE ---
held AM Lovenox do to bloody stools, occult , not given per Md Concepcion instructions.
--- NOTE | 2023-07-03 06:04 | PC.NURSE ---
+ occult reported to MD Concepcion
--- NOTE | 2023-07-03 06:22 | PC.NURSE ---
Pt seen by Md Concepcion, stated bloody stool most likely from hemorrhoids
[2023-07-03 06:25] LABS: Magnesium 1.5 mg/dL (1.6-2.3); Phosphorus 4.2 mg/dL (2.5-4.5); Triglycerides 116 mg/dL (<150)
[2023-07-03] MEDS: FLUTICASONE/UMECLIDIN/VILANTER 100-62.5-25 MCG ELLIPTA 1 PUFF INHALATION (08:07)
[2023-07-03] MEDS: polyethylene glycoL 3350 17 GM POWD.PACK PO (08:32)
[2023-07-03] MEDS: SENNA/DOCUSATE SODIUM TABLET 8.6 TAB PO (08:33)
[2023-07-03] MEDS: PANTOPRAZOLE SOD SESQUIHYDRATE 20 MG TAB PO (08:33)
[2023-07-03] MEDS: amLODIPine BESYLATE 5 MG TABLET PO (08:33)
[2023-07-03] MEDS: ENOXAPARIN 40 MG/0.4 ML SYRINGE SUB-Q (08:35)
--- NOTE | 2023-07-03 10:13 | PCNFU ---
Nutrition Follow-Up Complete: Inadequate energy intake related to NPO status and altered GI function as evidenced by current diet order, unintentional weight loss prior to admission Goal: Diet order _ advanced to full liquids PO intake greater than 50% of meals and supplements. - progressing with goal. Continue with current goals Pt current nutrition is Full liquid diet, Ensure Compact BID for additional 220 kcal and 9 g protein each. Nutrition recommendation: Continue with current diet orders, advance diet per MD Last recorded weight is 68 kg. Bowel Motility: +2 BMs 07/03/23 Labs Reviewed: Na 136, K+ 2.9, BUN <2, cre 0.4 Meds Noted: Lovenox, Zofran, protonix Skin: WNL Additional Notes: TPN was not started. Small bowel obstruction is resolved, pt having bowel movements. Per notes, may be discharged. Continue to monitor Monitor for diet order, intake, wt, labs. Follow up in 3 days.
--- NOTE | 2023-07-03 14:13 | PM.PNGS ---
Progress Note: A&P Assessment and Plan (1) Small bowel obstruction: Code(s): K56.609 - Unspecified intestinal obstruction, unspecified as to partial versus complete obstruction Status: Acute Assessment and Plan: Resolved. Will advance her to a solid diet. Okay for her to be discharged from a surgical standpoint once she is tolerating a solid diet either later today or tomorrow. She has had recurrence of this several times and is scheduled to see GI for an upper and lower endoscopy as an outpatient. If her anastomosis can be accessed, she may be able to have balloon dilatation and avoid further surgery. If this is not able to be accomplished, then she can follow up with Dr. Villarreal in our office to consider surgery. (2) H/O major abdominal surgery: Code(s): Z98.890 - Other specified postprocedural states Status: Chronic Plan I have discussed the patient's case and plan of care with Dr. Villarreal. Subjective Subjective Date/Time Seen: 07/03/23 14:13 Patient reports: no new complaints, feels better, tolerating liquids well, flatus and bowel movement Interval history: Patient doing well. Denies any abdominal pain, nausea, or vomiting. She is tolerating full liquids. Bowels are moving since the water-soluble contrast study. No acute events overnight. Exam Const: General: comfortable and no acute distress Orientation/consciousness: patient oriented x3 GI: Inspection: non-distended GI Palp: Yes Soft to palpation, No Tenderness to palpation present (GI) and No Guarding due to palpation present (GI) Auscultation: normal bowel sounds Objective Data Vital Signs Vital Signs: Vital Signs - 24 hr 07/02/23 14:20 07/02/23 19:55 07/02/23 20:37 Temperature 98.3 F 97.6 F Pulse Rate 70 65 Respiratory Rate 18 16 Blood Pressure 146/129 H 142/86 H Pulse Oximetry 91 93 93 Oxygen Delivery Room Air Oxygen Flow Rate 07/03/23 04:49 07/03/23 05:38 07/03/23 06:04 Temperature 97.3 F L 97.3 F L Pulse Rate 72 86 86 Respiratory Rate 16 16 Blood Pressure 140/66 140/66 Pulse Oximetry 96 96 Oxygen Delivery Room Air Oxygen Flow Rate 07/03/23 08:07 07/03/23 08:00 07/03/23 14:00 Temperature 98.3 F Pulse Rate 71 Respiratory Rate 20 Blood Pressure 129/80 Pulse Oximetry 96 98 92 Oxygen Delivery Nasal Cannula Nasal Cannula Oxygen Flow Rate 2 2 Intake/Output Intake/Output: Intake & Output 06/30/23 07/01/23 07/02/23 07/03/23 23:59 23:59 23:59 23:59 Intake Total 2024 1999 2730 1440 Output Total 1350 1300 2450 Balance 675 990 250 3721 Meds/Results Medications: Active Medications Generic Name Dose Route Start Last Admin Trade Name Freq PRN Reason Stop Dose Admin Albuterol 2 puff 06/30/23 03:24 Albuterol Sulfate (*Sp) Aerosol 1 Puff INHALATION Q4HRT PRN Shortness Of Breath Or Wheezin Albuterol 5 mg 06/30/23 05:40 Albuterol Sulfate Neb 2.5 Mg/3 Ml Inh INHALATION Q6HRT PRN Shortness Of Breath Amlodipine Besylate 5 mg 07/03/23 09:00 07/03/23 08:33 Amlodipine Besylate 5 Mg Tablet PO 5 mg QAM ARELI Administration Cyclobenzaprine HCl 5 mg 07/02/23 13:42 07/02/23 20:30 Cyclobenzaprine Hcl 5 Mg Tablet PO 5 mg TID PRN Administration muscle spasm Enoxaparin Sodium 40 mg 06/30/23 09:00 07/03/23 08:35 Enoxaparin 40 Mg/0.4 Ml Syringe SUB-Q 40 mg DAILY ARELI Administration Fluticasone/Umeclidinium/Vilanterol 1 puff 06/30/23 08:00 07/03/23 08:07 Fluticasone/Umeclidin/Vilanter 100-62.5-25 Mcg Ellipta INHALATION 1 puff DAILYRT ARELI Administration Ipratropium [place] 0.5 mg 06/30/23 05:40 Ipratropium Br 0.02% Inh Soln 0.5 Mg/2.5 Ml Vial INHALATION Q6HRT PRN Shortness Of Breath Modafinil 200 mg 07/02/23 13:42 Modafinil (*Crx) 200 Mg Tablet PO QAM PRN sleep apnea Morphine Sulfate 4 mg 06/29/23 21:05 06/30/23 17:54 Morphine Sulfate (*Crx) 4 Mg/Ml Inj IV PUSH 4 mg
--- NOTE | 2023-07-03 16:59 | PM.IMPN ---
Progress Note: A&P Assessment and Plan (1) GERD without esophagitis: Code(s): K21.9 - Gastro-esophageal reflux disease without esophagitis Status: Acute (2) Small bowel obstruction: Code(s): K56.609 - Unspecified intestinal obstruction, unspecified as to partial versus complete obstruction Status: Acute (3) Acute generalized abdominal pain: Code(s): R10.84 - Generalized abdominal pain Status: Acute (4) Nausea & vomiting: Qualifiers: Vomiting type: unspecified Qualified Code(s): R11.2 - Nausea with vomiting, unspecified Code(s): R11.2 - Nausea with vomiting, unspecified Status: Acute (5) Partial small bowel obstruction: Code(s): K56.600 - Partial intestinal obstruction, unspecified as to cause Status: Acute (6) Volvulus: Code(s): K56.2 - Volvulus Status: Acute (7) Chronic constipation: Code(s): K59.09 - Other constipation Status: Acute (8) Small bowel obstruction: Code(s): K56.609 - Unspecified intestinal obstruction, unspecified as to partial versus complete obstruction Status: Acute (9) Diffuse abdominal pain: Code(s): R10.84 - Generalized abdominal pain Status: Acute (10) Diarrhea: Code(s): R19.7 - Diarrhea, unspecified Status: Acute (11) Obesity (BMI 30-39.9): Code(s): E66.9 - Obesity, unspecified Status: Acute (12) SBO (small bowel obstruction): Code(s): K56.609 - Unspecified intestinal obstruction, unspecified as to partial versus complete obstruction Status: Acute Plan 1. SBO with volvulus and transition point Hx of abd surgeries Patient has small-bowel obstruction.? CT does demonstrate possible volvulus.? General surgery has been consulted.? Patient would prefer to manage symptoms with conservative therapy as this is been successful for her in the past.? NG is in place to low intermittent suction.? Repeat KUB has been ordered for a.m..? General surgery has been consulted.? P.r.n. pain medications and nausea medications have been ordered. 06/30: Gen surg consulted. Recommended conservative management has an ngt, is npo except for ice chips switched to d5 1/2 ns at 100 ml/hr Will need tpn if not taking CLD tomorrow Appreciate general surgery consultation Per general surgery: Could plan for a water soluble small bowel follow through after a few days to further evaluate the bowel obstruction, depending on how she is progressing. Will monitor with serial abdominal exams and abdominal x-rays daily. Scheduled for upper endoscopy and colonoscopy next month 07/01: Per gen surg- Clinically improving with NG tube decompression. KUB this morning showed normal bowel gas pattern. Will continue NG tube, bowel rest, and IV fluids again today. Will repeat a KUB tomorrow morning. Possibly proceed with water soluble small bowel follow through tomorrow depending on how she is progressing. At this point pt needs to start TPN. Cannot have ongoing M-IVF. on prn pain meds for sbo. picc line ordered for tomorrow for central line placement for TPN 07/02: advanced to FLD with general surgery. never received TPN. IVF cancelled. potential dc tomorrow. small bowel xr series neg. 07/03: advanced to solid regular diet by general surgery. plan for dc tomorrow if no issues. 2. Leukocytosis Patient does have some mild leukocytosis but no reports the symptoms that are concerning for infection.? Will repeat CBC in a.m..? 06/30: resolved with conservative management 3. COPD with tobacco use Patient has chronic COPD with continued tobacco use.? Patient is not interested in additional tobacco cessation information.? And a nicotine patch and nicotine gum were ordered but the patient prefers to not have any supplementation.? She reports that the patches break her out in that she does not like the taste of the nicotine gum in she is afraid it would make her more nauseated.? Given that she is reporting occas
[2023-07-03] MEDS: MAGNESIUM SULF 2 GM/WATER 50ML 2 GM/50 ML BAG IVPB (17:33)
[2023-07-04 05:04] VITALS: BP 126/74; PULSE 74; RESP 16; TEMP 36.6; O2SAT 94
[2023-07-04] MEDS: CENTRAL LINE FLUSH 10 ML IV PUSH (05:31)
[2023-07-04 05:36] LABS: Basophils Percent Auto 0.4 % (0.2-1.2); Eosinophils Absolute Auto 0.1 K/mm3 (0-0.3); Eosinophils Percent Auto 1.4 % (0-4.4); Hemoglobin 12.9 g/dL (12.0-15.0); Immature Granulocyte Absolute 0.04 K/mm3 (0.00-0.031); Immature Granulocyte Percent A 0.5 % (0-0.5); Lymphocytes Absolute Auto 2.11 K/mm3 (0.9-3.2); Lymphocytes Percent Auto 25.2 % (18.3-44.2); Mean Corpuscular HGB Conc 33.1 g/dl (32-36); Mean Corpuscular Hemoglobin 30.9 pg (26-34); Mean Corpuscular Volume 93.5 fl (80-100); Monocytes Absolute Auto 0.7 K/mm3 (0.1-0.6); Monocytes Percent Auto 8.6 % (2.6-8.5); Neutrophils Absolute Auto 5.3 K/mm3 (1.3-6.7); Neutrophils Percent Auto 63.9 % (45.5-73.1); Platelet Count Result 243 k/mm3 (150-375); Red Blood Count 4.17 M/mm3 (4.2-5.4); Red Cell Distribution Width 13.4 % (11.5-14.5); White Blood Count 8.4 K/mm3 (4.5-10.0)
[2023-07-04 05:45] LABS: Anion Gap 6 mmol/L (8-16); Blood Urea Nitrogen 8 mg/dL (7-17); Calcium 8.2 mg/dL (8.4-10.2); Carbon Dioxide 30 mmol/L (22-30); Chloride 102 mmol/L (98-107); Estimated CRCL calculation 84 ml/min; Estimated Glomerular Filt Rate > 60; Glucose 103 mg/dL (65-110); Magnesium 1.8 mg/dL (1.6-2.3); Phosphorus 4.2 mg/dL (2.5-4.5); Potassium 2.9 mmol/L (3.4-5.0); Sodium 138 mmol/L (137-145)
[2023-07-04 07:40] VITALS: PULSE 67; RESP 18; O2SAT 92
[2023-07-04] MEDS: FLUTICASONE/UMECLIDIN/VILANTER 100-62.5-25 MCG ELLIPTA 1 PUFF INHALATION (07:40)
[2023-07-04 08:00] VITALS: PULSE 67; RESP 18; O2SAT 92
[2023-07-04] MEDS: POTASSIUM CHLORIDE 20 MEQ ER TABLET 40 MEQ PO ×2 (09:11→13:29)
[2023-07-04] MEDS: amLODIPine BESYLATE 5 MG TABLET PO (09:11)
[2023-07-04] MEDS: PANTOPRAZOLE SOD SESQUIHYDRATE 20 MG TAB PO (09:11)
--- NOTE | 2023-07-04 11:50 | PM.IMPN ---
Progress Note: A&P Assessment and Plan (1) GERD without esophagitis: Code(s): K21.9 - Gastro-esophageal reflux disease without esophagitis Status: Acute (2) Small bowel obstruction: Code(s): K56.609 - Unspecified intestinal obstruction, unspecified as to partial versus complete obstruction Status: Acute (3) Acute generalized abdominal pain: Code(s): R10.84 - Generalized abdominal pain Status: Acute (4) Nausea & vomiting: Qualifiers: Vomiting type: unspecified Qualified Code(s): R11.2 - Nausea with vomiting, unspecified Code(s): R11.2 - Nausea with vomiting, unspecified Status: Acute (5) Partial small bowel obstruction: Code(s): K56.600 - Partial intestinal obstruction, unspecified as to cause Status: Acute (6) Volvulus: Code(s): K56.2 - Volvulus Status: Acute (7) Chronic constipation: Code(s): K59.09 - Other constipation Status: Acute (8) Diffuse abdominal pain: Code(s): R10.84 - Generalized abdominal pain Status: Acute (9) Diarrhea: Code(s): R19.7 - Diarrhea, unspecified Status: Acute (10) Obesity (BMI 30-39.9): Code(s): E66.9 - Obesity, unspecified Status: Acute Plan 1. SBO with volvulus and transition point Hx of abd surgeries Patient has small-bowel obstruction.? CT does demonstrate possible volvulus.? General surgery has been consulted.? Patient would prefer to manage symptoms with conservative therapy as this is been successful for her in the past.? NG is in place to low intermittent suction.? Repeat KUB has been ordered for a.m..? General surgery has been consulted.? P.r.n. pain medications and nausea medications have been ordered. 06/30: Gen surg consulted. Recommended conservative management has an ngt, is npo except for ice chips switched to d5 1/2 ns at 100 ml/hr Will need tpn if not taking CLD tomorrow Appreciate general surgery consultation Per general surgery: Could plan for a water soluble small bowel follow through after a few days to further evaluate the bowel obstruction, depending on how she is progressing. Will monitor with serial abdominal exams and abdominal x-rays daily. Scheduled for upper endoscopy and colonoscopy next month 07/01: Per gen surg- Clinically improving with NG tube decompression. KUB this morning showed normal bowel gas pattern. Will continue NG tube, bowel rest, and IV fluids again today. Will repeat a KUB tomorrow morning. Possibly proceed with water soluble small bowel follow through tomorrow depending on how she is progressing. At this point pt needs to start TPN. Cannot have ongoing M-IVF. on prn pain meds for sbo. picc line ordered for tomorrow for central line placement for TPN 07/02: advanced to FLD with general surgery. never received TPN. IVF cancelled. potential dc tomorrow. small bowel xr series neg. 07/03: advanced to solid regular diet by general surgery. plan for dc tomorrow if no issues. 2. Leukocytosis Patient does have some mild leukocytosis but no reports the symptoms that are concerning for infection.? Will repeat CBC in a.m..? 06/30: resolved with conservative management 3. COPD with tobacco use Patient has chronic COPD with continued tobacco use.? Patient is not interested in additional tobacco cessation information.? And a nicotine patch and nicotine gum were ordered but the patient prefers to not have any supplementation.? She reports that the patches break her out in that she does not like the taste of the nicotine gum in she is afraid it would make her more nauseated.? Given that she is reporting occasional increased shortness of breath will provide nebulizer treatments.? Patient states that she does have nebulizer treatments available home but rarely uses them.? Will continue the patient's home inhaled corticosteroid.? Will continue supplemental oxygen as needed for sleep. 4. GERD Will switch the patient's PPI therapy to IV formulatio
--- NOTE | 2023-07-04 12:05 | PM.DS ---
DS: Admitting Diagnosis Discharge Date 07/04/2023 Admitting Diagnosis Abdominal pain DS: Discharge Diagnosis Discharge Diagnosis (1) GERD without esophagitis: Code(s): K21.9 - Gastro-esophageal reflux disease without esophagitis Status: Acute (2) Small bowel obstruction: Code(s): K56.609 - Unspecified intestinal obstruction, unspecified as to partial versus complete obstruction Status: Acute (3) Acute generalized abdominal pain: Code(s): R10.84 - Generalized abdominal pain Status: Acute (4) Nausea & vomiting: Qualifiers: Vomiting type: unspecified Qualified Code(s): R11.2 - Nausea with vomiting, unspecified Code(s): R11.2 - Nausea with vomiting, unspecified Status: Acute (5) Partial small bowel obstruction: Code(s): K56.600 - Partial intestinal obstruction, unspecified as to cause Status: Acute (6) Volvulus: Code(s): K56.2 - Volvulus Status: Acute (7) Chronic constipation: Code(s): K59.09 - Other constipation Status: Acute (8) Diffuse abdominal pain: Code(s): R10.84 - Generalized abdominal pain Status: Acute (9) Diarrhea: Code(s): R19.7 - Diarrhea, unspecified Status: Acute (10) Obesity (BMI 30-39.9): Code(s): E66.9 - Obesity, unspecified Status: Acute DS: Summary Hospital Course Hospital Course: # sBO with volvulus and transition point Hx of abd surgeries Patient has small-bowel obstruction.? CT does demonstrate possible volvulus.? General surgery has been consulted.? Patient would prefer to manage symptoms with conservative therapy as this is been successful for her in the past.? NG is in place to low intermittent suction.? Patient improved with conservative management. Slowly advanced diet and tolerated well. Started having bowel movement. She will follow-up with general surgery and GI as an outpatient basis. 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 Need to follow up with GI as an outpatient for any possible intervention if not to discuss resurgery with general surgery as outpatient basis. # COPD with tobacco use Patient has chronic COPD with continued tobacco use.? Patient is not interested in additional tobacco cessation information.? And a nicotine patch and nicotine gum were ordered but the patient prefers to not have any supplementation.? She reports that the patches break her out in that she does not like the taste of the nicotine gum in she is afraid it would make her more nauseated.? Given that she is reporting occasional increased shortness of breath will provide nebulizer treatments.? Patient states that she does have nebulizer treatments available home but rarely uses them.? Will continue the patient's home inhaled corticosteroid.? Will continue supplemental oxygen as needed for sleep. # GERD Will switch the patient's PPI therapy to IV formulation given NPO status. #. HTN start amlodipine for htn # hypokalemia replace recheck in 1 week Time Spent with Patient Time attestation: Total time spent providing and/or coordinating discharge services: 35 minutes Exam Narrative: GENERAL: Well-developed, well-nourished, in moderate distress due to pain HEAD: Normocephalic, atraumatic. EYES: PERRLA and EOMI. ENT: Nares clear, no rhinorrhea or epistaxis.? Mucous membranes moist. CHEST: mild bl wheezing HEART: Regular rate and rhythm.? No murmur heard.? Normal peripheral pulses. ABDOMEN: Soft, not ttp, not distended, bs + EXTREMITIES: Normal range of motion.? No edema. SKIN: Warm, dry, no rash. NEURO:? Alert and oriented x3. Moving all 4 limbs purposefully. DS: Data Data Completed and Pending Labs on day of discharge: Labs from last 24 hours 07/04/23 05:25 WBC 8.4 RBC 4.17 L Hgb 12.9 Hct 39.0 MCV 93.5 MCH 30.9 MCHC 33.1 RDW 13.4 Plt Count 243 MPV 10.0 Immature Gran % (Auto) 0.5 Neut % (Auto) 63.9
--- NOTE | 2023-07-04 12:09 | PM.PNGS ---
Progress Note: A&P Assessment and Plan (1) Small bowel obstruction: Code(s): K56.609 - Unspecified intestinal obstruction, unspecified as to partial versus complete obstruction Status: Resolved Assessment and Plan: Recurrent small-bowel obstruction again resolved. Patient has appointment in early August to see gastroenterology for colonoscopy and possibly EGD. No need for surgical follow-up at this time. I did explain to the patient that if the gastroenterology consult and endoscopy did not improve her recurrent small-bowel obstructions, I would be happy to see her in the office and discuss laparotomy for recurrent small-bowel obstruction. We have talked about this several times. She is okay to be discharged from my standpoint. I will go ahead and sign off. Subjective Subjective Date/Time Seen: 07/04/23 12:09 Patient reports: no new complaints, feels better, tolerating a regular diet and bowel movement Interval history: No complaints of abdominal pain, nausea or vomiting. Feels good. Review of Systems Review of Systems: All systems reviewed & are unremarkable except as noted in HPI and below (HPI) Exam Const: General: comfortable and no acute distress Orientation/consciousness: patient oriented x3 GI: Inspection: non-distended, scar and no visible herniation GI Palp: Yes Soft to palpation, No Tenderness to palpation present (GI), No Guarding due to palpation present (GI) and No Rebound tenderness present Auscultation: normal bowel sounds Neuro: General: patient oriented x3 and no focal motor deficits Extrem: General: no calf tenderness and no edema Psych: Affect: normal affect Insight: Good insight present (Psych) Judgement: Good judgement present (Psych) Objective Data Vital Signs Vital Signs: Vital Signs - 24 hr 07/03/23 14:00 07/03/23 20:54 07/03/23 20:00 Temperature 36.8 C 36.7 C Pulse Rate 71 65 Respiratory Rate 20 16 Blood Pressure 129/80 123/58 L Pulse Oximetry 92 95 95 Oxygen Delivery Nasal Cannula Oxygen Flow Rate 2 Fraction of Inspired Oxygen 07/04/23 05:04 07/04/23 07:40 07/04/23 07:40 Temperature 36.6 C Pulse Rate 74 67 67 Respiratory Rate 16 18 18 Blood Pressure 126/74 Pulse Oximetry 94 92 Oxygen Delivery Room Air Oxygen Flow Rate Fraction of Inspired Oxygen 07/04/23 08:00 Temperature Pulse Rate 67 Respiratory Rate 18 Blood Pressure Pulse Oximetry 92 Oxygen Delivery Room Air Oxygen Flow Rate Fraction of Inspired Oxygen 28 Intake/Output Intake/Output: Intake & Output 07/01/23 07/02/23 07/03/23 07/04/23 23:59 23:59 23:59 23:59 Intake Total 19990 1838 790 Output Total 1299 2450 Balance 997 489 6456 790 Meds/Results Medications: Active Medications Generic Name Dose Route Start Last Admin Trade Name Freq PRN Reason Stop Dose Admin Albuterol 2 puff 06/30/23 03:24 Albuterol Sulfate (*Sp) Aerosol 1 Puff INHALATION Q4HRT PRN Shortness Of Breath Or Wheezin Albuterol 5 mg 06/30/23 05:40 Albuterol Sulfate Neb 2.5 Mg/3 Ml Inh INHALATION Q6HRT PRN Shortness Of Breath Amlodipine Besylate 5 mg 07/03/23 09:00 07/04/23 09:11 Amlodipine Besylate 5 Mg Tablet PO 5 mg QAM ARELI Administration Cyclobenzaprine HCl 5 mg 07/02/23 13:42 07/02/23 20:30 Cyclobenzaprine Hcl 5 Mg Tablet PO 5 mg TID PRN Administration muscle spasm Enoxaparin Sodium 40 mg 06/30/23 09:00 07/03/23 08:35 Enoxaparin 40 Mg/0.4 Ml Syringe SUB-Q 40 mg DAILY ARELI Administration Fluticasone/Umeclidinium/Vilanterol 1 puff 06/30/23 08:00 07/04/23 07:40 Fluticasone/Umeclidin/Vilanter 100-62.5-25 Mcg Ellipta INHALATION 1 puff DAILYRT ARELI Administration Ipratropium [place] 0.5 mg 06/30/23 05:40 Ipratropium Br 0.02% Inh Soln 0.5 Mg/2.5 Ml Vial INHALATION Q6HRT PRN Shortness Of Breath Modafinil 200 mg 07/02/23 13:42 Modafinil (*Crx) 200 Mg Tablet PO Q
[2023-07-04] MEDS: NEOMYCIN/POLYMYXIN/BACITRACIN OINTMENT PACKET 1 PACKET (13:29)
== END 2023-07-04 14:00 | disposition home or self-care (01) | DRG 389 ==
LOC: ANHED 20:28 → ANH3MEDSUR 21:26
PROVIDERS: Internal Medicine; Nurse Practitioner Family; Preventive Medicine Aerospace Medicine; Student in an Organized Health Care Education/Training Program; Admitting Provider Internal Medicine; Emergency Provider Emergency Medicine; PCP Emergency Medicine; Visit Provider Internal Medicine
DX: K56.609 Unspecified intestinal obstruction, unspecified as to partial versus complete obstruction (principal); J96.11 Chronic respiratory failure with hypoxia; K56.2 Volvulus; J44.9 Chronic obstructive pulmonary disease, unspecified; D50.9 Iron deficiency anemia, unspecified; E78.5 Hyperlipidemia, unspecified; E53.8 Deficiency of other specified B group vitamins; E03.9 Hypothyroidism, unspecified; E55.9 Vitamin D deficiency, unspecified; K21.9 Gastro-esophageal reflux disease without esophagitis; K59.09 Other constipation; M41.9 Scoliosis, unspecified; M54.9 Dorsalgia, unspecified; G89.29 Other chronic pain; G62.9 Polyneuropathy, unspecified; G25.81 Restless legs syndrome; G47.33 Obstructive sleep apnea (adult) (pediatric); F17.210 Nicotine dependence, cigarettes, uncomplicated; F32.A Depression, unspecified; F41.9 Anxiety disorder, unspecified; Z86.73 Personal history of transient ischemic attack (TIA), and cerebral infarction without residual deficits; Z90.49 Acquired absence of other specified parts of digestive tract; Z99.81 Dependence on supplemental oxygen
CPT/HCPCS: 36415; 36569; 74018; 74177; 74250; 80048; 80053; 82274; 82948; 83605; 83735; 84100; 84478; 85025; 85027; 85610; 94640; 96361; 96372; 96374; 96375; 96376; 99285; A9270; C9113; G0378; J1650; J2270; J2405; J3475; J7030; Q9967

== ENCOUNTER 2023-07-11 08:16 | Outpatient (CLI) | payer MEDICARE, MEDICAID, SELFPAY ==
[2023-07-11 08:41] LABS: Basophils Absolute Auto 0.1 K/mm3 (0.0-0.1); Basophils Percent Auto 0.6 % (0.2-1.2); Eosinophils Absolute Auto 0.1 K/mm3 (0-0.3); Eosinophils Percent Auto 1.2 % (0-4.4); Hematocrit 42.5 % (37.0-47.0); Hemoglobin 13.4 g/dL (12.0-15.0); Lymphocytes Absolute Auto 2.78 K/mm3 (0.9-3.2); Lymphocytes Percent Auto 27.1 % (18.3-44.2); Mean Corpuscular HGB Conc 31.5 g/dl (32-36); Mean Corpuscular Hemoglobin 30.9 pg (26-34); Mean Corpuscular Volume 97.9 fl (80-100); Mean Platelet Volume 9.5 fl (7.4-10.4); Monocytes Absolute Auto 0.5 K/mm3 (0.1-0.6); Monocytes Percent Auto 5.2 % (2.6-8.5); Neutrophils Absolute Auto 6.7 K/mm3 (1.3-6.7); Neutrophils Percent Auto 64.9 % (45.5-73.1); Platelet Count Result 408 k/mm3 (150-375); Red Blood Count 4.34 M/mm3 (4.2-5.4); White Blood Count 10.3 K/mm3 (4.5-10.0)
[2023-07-11 08:49] LABS: Anion Gap 8 mmol/L (8-16); Blood Urea Nitrogen 13 mg/dL (7-17); Carbon Dioxide 29 mmol/L (22-30); Chloride 104 mmol/L (98-107); Estimated Glomerular Filt Rate > 60; Glucose 89 mg/dL (65-110); Potassium 4.3 mmol/L (3.4-5.0); Sodium 141 mmol/L (137-145)
== END 2023-07-11 08:17 | disposition home or self-care (01) ==
LOC: ANHLAB 08:17
PROVIDERS: PCP Emergency Medicine; Visit Provider Internal Medicine
DX: K56.609 Unspecified intestinal obstruction, unspecified as to partial versus complete obstruction (principal)
CPT/HCPCS: 36415; 80048; 85025

== ENCOUNTER 2023-07-28 01:21 | Day surgery (SDC) | payer MEDICARE, MEDICAID, SELFPAY ==
[2023-07-09 13:41] VITALS: BMI 29.3
--- NOTE | 2023-07-23 09:33 | SUR.PREOP ---
Patient called regarding upcoming procedure. Reviewed preop instructions, appointment times, and procedure prep.
[2023-07-28 08:42] VITALS: BP 136/78; PULSE 78; RESP 20; TEMP 36.1; O2SAT 99
[2023-07-28] MEDS: LACTATED RINGERS 1,000 ML 150 ML IV CONT (08:53)
--- NOTE | 2023-07-28 09:36 | WPDANESEPPF ---
Anes - Initial Pre Proc Eval Procedure: Operation Date: 07/28/23 10:00 Proposed Procedures p Esophagogastroduodenoscopy & Colonoscopy - Thang Kruger MD Date/Time: 07/28/23 09:36 Surgeon: Thang Kruger MD Pre Op Diagnosis: GERD without esophagitis,unspecified intestinal ob Patient Data Age: 62 Gender: F Height: 1.55 m Weight: 68.4 kg Last Vital Signs Temp 97 F L 07/28/23 08:42 Pulse 78 07/28/23 08:42 Resp 20 07/28/23 08:42 BP 136/78 07/28/23 08:42 Pulse Ox 99 07/28/23 08:42 O2 Del Method Room Air 07/28/23 08:42 Allergies Allergy/AdvReac Type Severity Reaction Status Date / Time latex Allergy Unknown unknown Verified 07/28/23 08:41 Penicillins Allergy Unknown unknown Verified 07/28/23 08:41 Home Medications Medication Instructions Recorded Confirmed Type albuterol sulfate 90 mcg/actuation 2 inhalation inhalation Q4H PRN 09/21/19 07/09/23 History aerosol inhaler (ProAir HFA) Shortness Of Breath Or Wheezing modafinil 200 mg tablet (Provigil) 200 mg PO QAM PRN sleep apnea 09/21/19 07/09/23 History fluticasone fur. 100 mcg-umeclid 1 inh inhalation DAILY 03/28/22 07/09/23 History 62.5 mcg-vilant 25 mcg inhalat.powder (Trelegy Ellipta) magnesium hydroxide 400 mg/5 mL 5 ml PO HS PRN constipation #355 mL 04/24/22 07/09/23 Rx oral suspension (Milk of Magnesia) cyclobenzaprine 5 mg tablet 5 mg PO TID PRN muscle spasm #90 02/04/23 07/09/23 Rx tabs pantoprazole 20 mg tablet,delayed See Rx Instructions .Route 03/03/23 07/09/23 Rx release .COMPLEX #90 tabs polyethylene glycol 3350 17 17 g PO DAILY 04/11/23 07/09/23 History gram/dose oral powder (Miralax) sennosides 8.6 mg-docusate sodium 8.6 tab-cap PO DAILY 06/29/23 07/09/23 History 50 mg tablet (Colace 2-In-1) amlodipine 5 mg tablet (Norvasc) 5 mg PO QAM #30 tabs 07/04/23 07/09/23 Rx potassium chloride 20 mEq 20 meq PO DAILY #5 tabs 07/04/23 07/09/23 Rx tablet,extended release (K-Tab) tramadol 50 mg tablet 50 mg PO Q6H PRN pain #60 tabs 07/17/23 Rx azithromycin 250 mg tablet See Rx Instructions PO .COMPLEX #6 07/21/23 Rx (Zithromax Z-Qasim) tabs benzonatate 100 mg capsule 100 mg PO TID PRN cough #21 caps 07/21/23 Rx Patient hx anesthesia problems: none Family hx anesthesia problems: none Results Review: All pre-operative results and documents have been reviewed as part of the pre-operative evaluation. [facility] Past Medical History Medical History B12 deficiency Chronic back pain Chronic constipation Chronic obstructive pulmonary disease Chronic respiratory failure with hypoxia On 2 liters nasal cannula p.r.n. Depression with anxiety Dyslipidemia GERD without esophagitis History of vaginal delivery Hypothyroidism Iron deficiency anemia Migraine headache Mixed hyperlipidemia Obstructive sleep apnea Peripheral neuropathy Restless leg syndrome, controlled Scoliosis Small bowel obstruction due to adhesions Previous, multiple admissions for such. TIA (transient ischemic attack) (~2000) Vitamin D deficiency Surgical History Surgical History Bladder prolapse Repair of bladder prolapse. History of bilateral cataract extraction History of bowel resection 2009 low anterior resection History of cholecystectomy Open cholecystectomy History of colostomy History of colostomy reversal History of eye surgery Treatment of amblyopia. History of hysterectomy History of neck surgery History of tonsillectomy and adenoidectomy Rectal prolapse Rectal prolapse repair. Status post small bowel resection (~01/2019) Exploratory laparotomy with resection of 36 centimeters of the small bowel with extensive adhesiolysis and ileal-ileal anastomosis. [place] teeth removed Family History Family History Father Cirrhosis
--- NOTE | 2023-07-28 09:38 | PM.HPGS ---
History of Present Illness History of Present Illness Consent: Risks, benefits, and alternatives have been discussed and questions answered. Patient agrees to proceed with procedure. Chief complaint: GERD without esophagitis,unspecified intestinal ob Narrative: Rebecca Ricci is a 62 year old female here for egd and colonoscopy, hx of multiple SBO obstructions after hysterectomy with bilateral salpingo oophorectomy for bladder and uterine prolapse years ago with complications that required more interventions. GERD controlled with pantoprazole, last colonoscopy 2020 Review of Systems Constitutional: Constitutional: Denies headache(s) and Denies weakness Eyes: Eyes: Denies blurry vision ENT: Reports Normal hearing present, Denies headache(s) and Denies neck pain Cardiovascular: Cardiovascular: Denies chest pain and Denies dyspnea Respiratory: Respiratory: Denies dyspnea Gastrointestinal: Gastrointestinal: Reports no additional gastrointestinal complaints Genitourinary: Genitourinary: Denies dysuria Musculoskeletal: Musculoskeletal: Denies neck pain Integumentary/Breasts: Skin/Breast: Denies dry skin Neurologic: Reports Normal hearing present, Denies headache(s) and Denies weakness Psychiatric: Psychiatric: Denies anxiety Endocrine: Endocrine: Denies change in body appearance Hematologic/Lymphatic: Hematologic/Lymphatic: Denies easy bleeding Allergic/Immunologic: Allergic/Immunologic: Denies urticaria PMFSH Past Medical History Medical History B12 deficiency Chronic back pain Chronic constipation Chronic obstructive pulmonary disease Chronic respiratory failure with hypoxia On 2 liters nasal cannula p.r.n. Depression with anxiety Dyslipidemia GERD without esophagitis History of vaginal delivery Hypothyroidism Iron deficiency anemia Migraine headache Mixed hyperlipidemia Obstructive sleep apnea Peripheral neuropathy Restless leg syndrome, controlled Scoliosis Small bowel obstruction due to adhesions Previous, multiple admissions for such. TIA (transient ischemic attack) (~2000) Vitamin D deficiency Surgical History Surgical History Bladder prolapse Repair of bladder prolapse. History of bilateral cataract extraction History of bowel resection 2009 low anterior resection History of cholecystectomy Open cholecystectomy History of colostomy History of colostomy reversal History of eye surgery Treatment of amblyopia. History of hysterectomy History of neck surgery History of tonsillectomy and adenoidectomy Rectal prolapse Rectal prolapse repair. Status post small bowel resection (~01/2019) Exploratory laparotomy with resection of 36 centimeters of the small bowel with extensive adhesiolysis and ileal-ileal anastomosis. [place] teeth removed Family History Family History Father Cirrhosis Alcoholism Mother Emphysema of lung Alcoholism Sibling No problems noted. Social History Social History Social History: The patient lives in [place] with her significant other, Luis Fernando. They have been together since 1997. 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 She smoked about a pack of cigarettes per day since she was in her 20s. She denies alcohol and illicit substance abuse. She designates her son, Rohit, as her surrogate decision maker and she wishes to be a full code. Smoking packs per day: 1 Smoking cigarettes per day: 20.0 Years smoked: 40 Smoking pack-years: 40.00 Smoking status: Current every day smoker Tobacco type: cigarettes Second hand tobacco smoke exposure: Yes Alcohol intake: current Drinks per week: 1 Substance use: current Substance use type: marijuana Last use: 12/30/22 Lack of Transportation: No Lack of Food:
--- NOTE | 2023-07-28 09:53 | SUR.OPER ---
EGD ended at 948. Colonoscopy began at 953.
[2023-07-28 10:08] VITALS: BP 97/60; PULSE 77; RESP 21; O2SAT 97
[2023-07-28 10:18] VITALS: BP 110/57; PULSE 61; RESP 17; O2SAT 100
[2023-07-28 10:28] VITALS: BP 113/75; PULSE 60; RESP 21; O2SAT 100
== END 2023-07-28 10:32 | disposition home or self-care (01) ==
PROVIDERS: PCP Emergency Medicine; Visit Provider Internal Medicine Gastroenterology
PROC: 0DJ08ZZ Inspection of Upper Intestinal Tract, Via Natural or Artificial Opening Endoscopic (ICD-10-PCS; CPT 43235; principal; 2023-07-28 10:00)
DX: Z09 Encounter for follow-up examination after completed treatment for conditions other than malignant neoplasm (principal); K21.9 Gastro-esophageal reflux disease without esophagitis; K63.89 Other specified diseases of intestine; K64.8 Other hemorrhoids; K64.4 Residual hemorrhoidal skin tags; K59.00 Constipation, unspecified; J44.9 Chronic obstructive pulmonary disease, unspecified; Z99.81 Dependence on supplemental oxygen; J96.11 Chronic respiratory failure with hypoxia; G47.33 Obstructive sleep apnea (adult) (pediatric); F10.90 Alcohol use, unspecified, uncomplicated; F17.210 Nicotine dependence, cigarettes, uncomplicated; F12.90 Cannabis use, unspecified, uncomplicated; Z79.899 Other long term (current) drug therapy
CPT/HCPCS: 45378; 43239; 88305; J2001; J2704; J7120

== ENCOUNTER 2023-08-09 17:08 | Inpatient (IN) | payer MEDICARE, MEDICAID, SELFPAY ==
[2023-08-09] VITALS (7 sets, daily range): BP systolic 137–149; BP diastolic 77–90; PULSE 72–81; RESP 13–24; TEMP 36.4; O2SAT 90–98; BMI 30.1
--- NOTE | ~2023-08-09 | XR_ITS ---
Portable chest x-ray Comparison: 08/14/2023 Clinical History: Right basilar Findings: NG tube and right-sided PICC line are in place. Right basilar pneumothorax unchanged. Ther e is probable mild bibasilar atelectatic change versus other patchy airspace disease. Cardiomediasti nal silhouette is stable. Bones and soft tissues are unremarkable. Impression: Stable right basilar pneumothorax. Stable support tubes. Bibasilar airspace disease, likely atelectatic change. Reviewed, dictated and finalized at location M. Y MAN Impression: Stable right basilar pneumothorax. Stable support tubes. Bibasilar airspace disease, likely atelectatic change.
--- NOTE | ~2023-08-09 | XR_ITS ---
EXAMINATION: XR abdomen obstructive series DATE: 08/24/2023 09:12 INDICATION: Evaluate bowel obstruction. TECHNIQUE: Supine and upright views of the abdomen. FINDINGS: Comparison to multiple prior studies sequentially, with oldest reviewed study dated 2022. There is a laparotomy staple line. NG tube in the stomach. There are cholecystectomy clips. The visualized lung parenchyma is normal.. There is a bowel gas pattern. Gas and stool are seen throu ghout the colon to the level of the rectum. There is no free air. Small left pleural effusion. There is fluid in the minor fissure on the right. There is a probable hi atal hernia. IMPRESSION: 1. No acute abdominal abnormality. 2: Small pleural effusions. Reviewed, dictated and finalized at location A. S MANAGER
--- NOTE | ~2023-08-09 | CT_ITS ---
EXAMINATION: CT abdomen pelvis w con DATE: 08/09/2023 18:17 INDICATION: r/o sbo TECHNIQUE: Computed tomography (CT) of the abdomen and pelvis was performed with 100 mL Omnipaque-350 intravenous contrast. Automated exposure control and iterative reconstruction technique were employe d. The dose-length product was 473.90 mGy-cm. COMPARISON: 06/29/2023; small bowel follow-through 07/02/2023. FINDINGS: Lower thorax: Emphysematous change. Bibasilar scar. Coronary artery calcification. Liver: Simple left lobe cyst. Biliary/Gallbladder: Gallbladder is absent. Stable moderate intrahepatic and extra hepatic bile duct dilation. Pancreas: No mass or duct dilation. Mild atrophy. Spleen: Normal. Adrenals:No mass. Kidneys: No suspicious mass, obstructing stone, or hydronephrosis. Multiple bilateral simple cysts. GI tract: Mild distal esophageal and gastric wall edema. Diffusely dilated small bowel, slightly incr eased since the prior study, transition point at the distal small bowel anastomosis, interloop fluid, not significantly changed from the prior study. No large bowel dilation. Uncomplicated rectal anasto mosis. Appendix not visualized Diverticulosis without diverticulitis. Mesentery/Peritoneum: No ascites, mass, or free air. Retroperitoneum: No mass. Pelvis: Absent uterus. Decompressed urinary bladder.. Soft Tissues: Soft tissues and body wall unremarkable. Bones: No acute osseous finding. IMPRESSION: Partial versus complete distal small bowel obstruction, likely recurrent based on the intervening nor mal small bowel follow-through study, transition point again at the small bowel anastomosis. Reviewed, dictated and finalized at location K. PING RECEIVING MANAGER IMPRESSION: Partial versus complete distal small bowel obstruction, likely recurrent based on the intervening normal small bowel follow-through study, transition point ag ain at the small bowel anastomosis.
--- NOTE | ~2023-08-09 | XR_ITS ---
EXAMINATION: XR fluoroscopy no charge INDICATION: Anastomosis assessment, assess for stable TECHNIQUE: A single intraoperative fluoroscopic images submitted for review. Total fluoroscopic time was 3.2 seconds. COMPARISON: None available FINDINGS: A surgical instrument is partially imaged in the [id number]. Otherwise, no radiopaque fo reign body is identified. IMPRESSION: 1. Partially imaged surgical instrument, otherwise no radiopaque foreign body identified. Reviewed, dictated and finalized at location L. RAL HOME ASSOCIATE IMPRESSION: 1. Partially imaged surgical instrument, otherwise no radiopaque foreign body i dentified.
--- NOTE | ~2023-08-09 | XR_ITS ---
EXAMINATION: XR chest PICC line DATE: 08/13/2023 10:31 INDICATION: Central line placement. TECHNIQUE: A single frontal view of the chest was obtained. COMPARISON: Chest single view 07/02/2023, CT abdomen and pelvis 08/09/2023 FINDINGS: There are lucencies in the lungs, consistent with emphysema. There is mild atelectasis in t he mid and lower lung zones. There is a small right pneumothorax. Again seen is extrapleural fat in l eft lateral costophrenic angle. The heart size is normal. The nasogastric tube tip is beyond the infe rior margin of the radiograph, but at least to the stomach. A right upper extremity peripherally inse rted central venous catheter (PICC) is seen with tip in the superior vena cava. There are old healed bilateral rib fractures. There are surgical changes in cervical spine. IMPRESSION: 1. Small right pneumothorax. 2. PICC tip in the superior vena cava. Reviewed, dictated and finalized at location A. OR BACKUP ADMINISTRATOR
--- NOTE | ~2023-08-09 | XR_ITS ---
Supine and upright views of the abdomen Clinical history: Small bowel obstruction COMPARISON: 07/02/2023 Findings: NG tube in satisfactory position. Bowel gas pattern is nonspecific. No evidence for obstruc tion or free air. No abnormal mass lesion or calcification is seen. Osseous structures are intact. Impression: NG tube in place. Nonspecific bowel gas pattern. Reviewed, dictated and finalized at [facility]. RESCENT SOLUTION MIXER Impression: NG tube in place. Nonspecific bowel gas pattern.
--- NOTE | ~2023-08-09 | XR_ITS ---
Portable chest x-ray Comparison: 08/19/2023 Clinical History: Pneumothorax Findings: Right-sided PICC line is in satisfactory position. Right basilar pneumothorax is similar t o prior exam. There is linear right basilar scarring or atelectasis. Probable minimal bilateral pleur al effusions. Cardiomediastinal silhouette is stable. Bones and soft tissues are unremarkable. Impression: Stable right basilar pneumothorax. Minimal bibasilar pleural effusions with linear scarring or atelectasis right lung base. Right-sided PICC line in place. Reviewed, dictated and finalized at location . ER ARRANGER Impression: Stable right basilar pneumothorax. Minimal bibasilar pleural effusions with linear scarring or atelectasis right l kristine base. Right-sided PICC line in place.
--- NOTE | ~2023-08-09 | XR_ITS ---
EXAMINATION: XR abdomen gastric tube insert DATE: 08/22/2023 12:43 INDICATION: Nasogastric tube placement TECHNIQUE: A supine view of the abdomen and lower chest was obtained for evaluation of feeding tube placement. COMPARISON: 09/19/2022 and chest radiograph dated 08/22/2023 FINDINGS: Nasogastric tube with tip in proximal side port in the body of the stomach. Right upper extremity per ipherally inserted central venous catheter (PICC) tip at the cephalad superior vena cava. Cholecyste ctomy clips in right upper quadrant. Upper abdominal midline skin tariq. Gas-filled loop of small b owel in the midabdomen which is not frankly dilated most likely related to postoperative ileus. Uncha nged small right pneumothorax. Small left pleural effusion. Cardiomediastinal silhouette is normal. O ld healed bilateral rib fractures. IMPRESSION: 1. Nasogastric tube tip in proximal side port in the stomach. 2. Small right pneumothorax and small left pleural effusion. Reviewed, dictated and finalized at location A. STICS RESEARCH ENGINEER
--- NOTE | ~2023-08-09 | XR_ITS ---
EXAMINATION: XR abdomen obstructive series DATE: 08/20/2023 12:51 INDICATION: Nausea and vomiting TECHNIQUE: Upright and supine views of the abdomen were obtained. COMPARISON: 08/19/2023 FINDINGS: There are persistent mildly dilated small bowel loops in the midabdomen which demonstrate i nterval decrease in distention. No free intraperitoneal gas is identified. There are small pleural ef fusions. Surgical tariq are present in the midline. IMPRESSION: 1. Persistent but improved dilated small bowel loops of the midabdomen, likely ileus. Reviewed, dictated and finalized at location B. RINTENDENT SALES
--- NOTE | ~2023-08-09 | XR_ITS ---
EXAMINATION: XR abdomen obstructive series DATE: 08/22/2023 16:06 INDICATION: Abdominal pain TECHNIQUE: Upright and supine views of the abdomen were obtained. COMPARISON: 08/20/2023 FINDINGS: The nasogastric tube is in the stomach. No dilated loops of bowel are identified. There is no free intraperitoneal gas. There is subsegmental atelectasis of the right midlung zone. Surgical st aples are noted in the midline abdomen. A surgical anastomosis is noted in the deep pelvis. IMPRESSION: 1. Nonobstructive bowel gas pattern. Reviewed, dictated and finalized at location B. OL HEALTH ASSISTANT
--- NOTE | ~2023-08-09 | XR_ITS ---
Supine and upright views of the abdomen Clinical history: Vomiting, recent surgery COMPARISON: 08/11/2023 Findings: Dilated small bowel loops are noted in the upper central abdomen. No definite free air seen . Surgical tariq noted vertically in the midline. No abnormal mass lesion or calcification is seen. Osseous structures are intact. Impression: Dilated small bowel loops in the central to upper abdomen, which could reflect postoperative ileus ve rsus small bowel obstruction. Reviewed, dictated and finalized at location M. CTOR MULTIMEDIA Impression: Dilated small bowel loops in the central to upper abdomen, which could reflect postoperative ileus versus small bowel obstruction.
--- NOTE | ~2023-08-09 | XR_ITS ---
Portable chest x-ray Comparison: 08/13/2023 Clinical History: Right pneumo thorax Findings: NG tube and right-sided PICC line are in satisfactory positions. Stable right basilar pneu mothorax with possible trapped lung. Bibasilar interstitial change is stable from prior exam. Cardio mediastinal silhouette is stable. Bones and soft tissues are unremarkable. Impression: Stable right basilar pneumothorax and/or trapped lung. Stable bibasilar chronic interstitial change and/or COPD. Support tubes, as above. Reviewed, dictated and finalized at location . E MINER Impression: Stable right basilar pneumothorax and/or trapped lung. Stable bibasilar chronic interstitial change and/or COPD. Support tubes, as above.
--- NOTE | ~2023-08-09 | XR_ITS ---
Clinical Indication: Right pneumothorax PA and lateral views of the chest: Comparison: 08/15/2023 Findings: Moderate right hydropneumothorax is similar to prior exam, possible small amount of increas ed fluid. There is discoid atelectasis or scarring at the bilateral lung bases. Right-sided PICC line remains in place.. Cardiomediastinal silhouette is within normal limits. Bones and soft tissues are unremarkable. Impression: Moderate right hydropneumothorax, with mild increased fluid is compared to prior exam. Discoid bibasilar atelectasis or scarring. Right-sided PICC line. Reviewed, dictated and finalized at location M. BRAZER Impression: Moderate right hydropneumothorax, with mild increased fluid is compared to prio r exam. Discoid bibasilar atelectasis or scarring. Right-sided PICC line.
--- NOTE | ~2023-08-09 | XR_ITS ---
EXAM: XR abdomen gastric tube insert DATE: 08/09/2023 18:45 HISTORY: NG tube placement . COMPARISON: 06/29/2023; CT abdomen pelvis 08/09/2023. FINDINGS: NG tube, tip and side port project over the stomach Clear lung bases. Multiple dilated smal l bowel loops in the upper abdomen. No organomegaly. Cholecystomy clips. Contrast excretion. Regional bones and soft tissues normal for age. IMPRESSION: NG tube, in good position. Small bowel obstruction/ileus. Reviewed, dictated and finalized at location K. ATION REVIEWER
--- NOTE | ~2023-08-09 | XR_ITS ---
XR chest 1V portable DATE: 08/25/2023 05:36 INDICATION: Pneumothorax TECHNIQUE: Portable AP chest on 08/25/2023 at 0529 hours COMPARISON: 08/22/2023 portable AP chest at 0539 hours 08/19/2023 PA and lateral chest FINDINGS: Very slight right apical pneumothorax. Right upper extremity PIC catheter tip overlies the proximal superior vena cava. There is discoid atelectasis in the right mid lung and mild infiltrate or atelectasis in both lower l kristine zones. Mild lingular costophrenic angles consistent with small pleural effusions. Heart size appears within normal range. Diffuse osteopenia. IMPRESSION: Slight right apical pneumothorax Discoid atelectasis, right midlung, mild bilateral lower lung infiltrate and/atelectasis and small pl eural effusions Reviewed, dictated and finalized at location A. ING ALLEY ATTENDANT IMPRESSION: Slight right apical pneumothorax Discoid atelectasis, right midlung, mild bilateral lower lung infiltrate and/at electasis and small pleural effusions
[2023-08-09 17:45] LABS: Basophils Percent Auto 0.2 % (0.2-1.2); Eosinophils Absolute Auto 0.1 K/mm3 (0-0.3); Eosinophils Percent Auto 0.5 % (0-4.4); Hematocrit 45.8 % (37.0-47.0); Hemoglobin 15.2 g/dL (12.0-15.0); Immature Granulocyte Absolute 0.08 K/mm3 (0.00-0.031); Immature Granulocyte Percent A 0.6 % (0-0.5); Lymphocytes Absolute Auto 2.78 K/mm3 (0.9-3.2); Lymphocytes Percent Auto 21.2 % (18.3-44.2); Mean Corpuscular HGB Conc 33.2 g/dl (32-36); Mean Corpuscular Volume 93.3 fl (80-100); Mean Platelet Volume 9.6 fl (7.4-10.4); Monocytes Absolute Auto 0.7 K/mm3 (0.1-0.6); Neutrophils Absolute Auto 9.5 K/mm3 (1.3-6.7); Neutrophils Percent Auto 72.5 % (45.5-73.1); Platelet Count Result 374 k/mm3 (150-375); Red Blood Count 4.91 M/mm3 (4.2-5.4); Red Cell Distribution Width 13.7 % (11.5-14.5); White Blood Count 13.1 K/mm3 (4.5-10.0)
--- NOTE | 2023-08-09 17:49 | ED.ABDPAIN ---
HPI - Abdominal Pain General Chief Complaint: Abdominal Pain Stated Complaint: GI blockage Time Seen by Provider: 08/09/23 17:30 History of Present Illness HPI narrative: This is a 62-year-old female, well known to me in this emergency department with history of multiple small-bowel obstructions, who returns to the emergency department complaining of diffuse abdominal pain, cramping, nausea and nonbloody vomiting. She states she has had loose stools for the past 4 days accompanied by a diffuse cramping, gradually increasing her from 3/10 to 8/10. She last passed gas yesterday evening and vomited once today without blood. Related Data Home Medications Medication Instructions Recorded Confirmed albuterol sulfate 90 mcg/actuation 2 inhalation inhalation Q4H PRN 09/21/19 07/09/23 aerosol inhaler (ProAir HFA) Shortness Of Breath Or Wheezing modafinil 200 mg tablet (Provigil) 200 mg PO QAM PRN sleep apnea 09/21/19 07/09/23 fluticasone fur. 100 mcg-umeclid 1 inh inhalation DAILY 03/28/22 07/09/23 62.5 mcg-vilant 25 mcg inhalat.powder (Trelegy Ellipta) polyethylene glycol 3350 17 17 g PO DAILY 04/11/23 07/09/23 gram/dose oral powder (Miralax) sennosides 8.6 mg-docusate sodium 8.6 tab-cap PO DAILY 06/29/23 07/09/23 50 mg tablet (Colace 2-In-1) Allergies Allergy/AdvReac Type Severity Reaction Status Date / Time latex Allergy Unknown unknown Verified 08/09/23 17:54 Penicillins Allergy Unknown unknown Verified 08/09/23 17:54 Review of Systems Review of Systems: CONSTITUTIONAL: Denies fever, chills, or sweats. CARDIOVASCULAR: Denies chest pain, palpitations, or edema. RESPIRATORY: Denies cough or dyspnea. GASTROINTESTINAL: Diffuse abdominal pain and cramping, nausea and nonbloody vomiting Denies diarrhea. GENITOURINARY: Denies dysuria or hematuria. SKIN: Denies rash or itching. MUSCULOSKELETAL: Denies back pain, joint pain, or myalgia. NEUROLOGIC: Denies headache, numbness, dizziness, or weakness. PSYCHIATRIC: Denies anxiety or depression. PMFSH Past Medical History Medical History B12 deficiency Chronic back pain Chronic constipation Chronic obstructive pulmonary disease Chronic respiratory failure with hypoxia On 2 liters nasal cannula p.r.n. Depression with anxiety Dyslipidemia GERD without esophagitis History of vaginal delivery Hypothyroidism Iron deficiency anemia Migraine headache Mixed hyperlipidemia Obstructive sleep apnea Peripheral neuropathy Restless leg syndrome, controlled Scoliosis Small bowel obstruction due to adhesions Previous, multiple admissions for such. TIA (transient ischemic attack) (~2000) Vitamin D deficiency Surgical History Surgical History Bladder prolapse Repair of bladder prolapse. History of bilateral cataract extraction History of bowel resection 2009 low anterior resection History of cholecystectomy Open cholecystectomy History of colostomy History of colostomy reversal History of eye surgery Treatment of amblyopia. History of hysterectomy History of neck surgery History of tonsillectomy and adenoidectomy Rectal prolapse Rectal prolapse repair. Status post small bowel resection (~01/2019) Exploratory laparotomy with resection of 36 centimeters of the small bowel with extensive adhesiolysis and ileal-ileal anastomosis. [place] teeth removed Family History Family History Father Cirrhosis Alcoholism Mother Emphysema of lung Alcoholism Sibling No problems noted. Social History Social History Social History: The patient lives in [place] with her significant other, Luis Fernando. They have been together since 1997. 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 She smoked about a pack of cigarettes per day since she was in he
[2023-08-09 17:55] LABS: Alanine Aminotransferase 17 U/L (6-35); Albumin Level 4.7 g/dL (3.5-5.1); Alkaline Phosphatase 117 U/L (38-126); Anion Gap 11 mmol/L (8-16); Aspartate Amino Transferase 31 U/L (14-36); Bilirubin,Total 0.7 mg/dL (0.2-1.3); Blood Urea Nitrogen 19 mg/dL (7-17); Calcium 9.4 mg/dL (8.4-10.2); Carbon Dioxide 28 mmol/L (22-30); Chloride 99 mmol/L (98-107); Estimated Glomerular Filt Rate > 60; Glucose 132 mg/dL (65-110); Lipase 45 U/L (23-300); Potassium 4.2 mmol/L (3.4-5.0); Sodium 138 mmol/L (137-145)
[2023-08-09] MEDS: ONDANSETRON INJ 4 MG/2 ML VIAL IV PUSH ×3 (17:58→23:42)
[2023-08-09] MEDS: MORPHINE SULFATE (*CRX) 4 MG/ML INJ IV PUSH (17:58)
[2023-08-09] MEDS: SODIUM CHLORIDE 0.9% IV 1,000 ML 999 ML IV CONT (17:58)
--- NOTE | 2023-08-09 18:47 | PC.NURSE ---
NJ tube hooked to intermittent suction and patent.
[2023-08-09] MEDS: MORPHINE SULFATE (*CRX) 2 MG/ML INJ IV PUSH ×2 (19:51→23:15)
--- NOTE | 2023-08-09 20:02 | PM.IMHP ---
H&P: HPI History of Present Illness Date/Time: 08/09/23 20:02 Chief Complaint: Abdominal pain Narrative: This is a 62 yo female with PMHx significant for recurrent SBO, adhesions, comes to ED after having 3 to 5 days of abdominal discomfort, cramps, loose stools, nausea, poor appetite, poor per oral intake., no melena, no coffee ground emesis, no hematemesis. Preliminary work up was significant for CT abd/pel was reported as. EXAMINATION: CT abdomen pelvis w con DATE: 08/09/2023 18:17 INDICATION: r/o sbo TECHNIQUE: Computed tomography (CT) of the abdomen and pelvis was performed with 100 mL Omnipaque-350 intravenous contrast. Automated exposure control and iterative reconstruction technique were employed. The dose-length product was 473.90 mGy-cm. COMPARISON: 06/29/2023; small bowel follow-through 07/02/2023. FINDINGS: Lower thorax: Emphysematous change. Bibasilar scar. Coronary artery calcification. Liver: Simple left lobe cyst.? Biliary/Gallbladder: Gallbladder is absent. Stable moderate intrahepatic and extra hepatic bile duct dilation. Pancreas: No mass or duct dilation. Mild atrophy. Spleen: Normal. Adrenals:No mass. Kidneys: No suspicious mass, obstructing stone, or hydronephrosis. Multiple bilateral simple cysts. GI tract: Mild distal esophageal and gastric wall edema. Diffusely dilated small bowel, slightly increased since the prior study, transition point at the distal small bowel anastomosis, interloop fluid, not significantly changed from the prior study. No large bowel dilation. Uncomplicated rectal anastomosis. Appendix not visualized Diverticulosis without diverticulitis. Mesentery/Peritoneum: No ascites, mass, or free air. Retroperitoneum: No mass. Pelvis: Absent uterus. Decompressed urinary bladder.. Soft Tissues: Soft tissues and body wall unremarkable. Bones:? No acute osseous finding. IMPRESSION: Partial versus complete distal small bowel obstruction, likely recurrent based on the intervening normal small bowel follow-through study, transition point again at the small bowel anastomosis. Review of Systems Review of Systems: abdominal pain, cramps, poor per oral intake. Constitutional: Constitutional: Denies chills, Denies fever(s), Denies malaise and Denies weakness Eyes: Eyes: Denies change in vision ENT: Denies dysphagia and Denies odynophagia Cardiovascular: Cardiovascular: Denies chest pain, Denies radiating jaw, neck or arm pain and Denies palpitations Respiratory: Respiratory: Denies chest congestion, Denies cough and Denies dyspnea Gastrointestinal: Gastrointestinal: Reports abdominal pain, Denies melena, Denies hematochezia, Denies coffee ground emesis, Reports constipation, Denies dyspepsia, Denies heartburn, Reports diarrhea, Reports loose stools and Reports vomiting Genitourinary: Genitourinary: Reports no additional female genitourinary complaints and Reports as per HPI Musculoskeletal: Musculoskeletal: Denies arthralgias Integumentary/Breasts: Skin/Breast: Denies rash Neurologic: Denies focal weakness and Denies Sensory deficit (Neuro) Psychiatric: Psychiatric: Reports no additional psychiatric complaints and Reports as per HPI Endocrine: Endocrine: Denies cold intolerance, Denies fatigue, Denies flushing, Denies heat intolerance, Denies polyphagia, Denies polydipsia, Denies polyuria and Denies palpitations Hematologic/Lymphatic: Hematologic/Lymphatic: Reports no additional hematologic/lymphatic complaints and Reports as per HPI Allergic/Immunologic: Allergic/Immunologic: Reports no additional allergic/immunologic complaints and Reports as per HPI PMFSH Past Medical History Medical History B12 deficiency Chronic back pain Chronic constipation Chronic obstructive pulmonary disease Chronic respiratory failure with hypoxia On 2 liters nasal cannula p.r.n. Depression with anxiety Dyslipidemia GERD without esophagitis His
--- NOTE | 2023-08-09 22:25 | ADMGEN ---
This patient, Rebecca Ricci, was admitted to [facility] Surg Room 311-01. Patient/family oriented to hospital policies and general routines including ID bracelet, bed and alarms, visiting hours, pain management, procedures, bathroom and other care routines, personal items, smoking policy, room service/diet, and visiting hours. Information on how to activate the Rapid Response Team has been discussed. Patient/Family are encouraged to report perceived risks to care and to ask questions if they do not understand what they are told or what they should do.
[2023-08-10 01:00] VITALS: PULSE 81; RESP 13; O2SAT 93
[2023-08-10] MEDS: MORPHINE SULFATE (*CRX) 2 MG/ML INJ IV PUSH ×5 (02:06→21:22)
[2023-08-10] MEDS: ONDANSETRON INJ 4 MG/2 ML VIAL IV PUSH ×2 (03:32→10:37)
[2023-08-10 03:39] LABS: Appearance Urine Clear (Clear); Bacteria Urine None Seen /hpf; Bilirubin Urine Negative (Negative); Blood Urine Negative (Negative); Color Urine Dark Yellow (Yellow); Glucose Urine UA Negative (Negative); Ketones Urine Negative (Negative); Leukocyte Esterase Ur Negative LEU/UL (Negative); Nitrate Urine Negative (Negative); Non Pathogenic Casts 0-2; Protein Urine Trace mg/dL (Negative); RBC Urine 0-2 /hpf (0-2); Squamous Epithelial Cell Urine None seen /hpf (Few); WBC Urine 0-5 /hpf; pH Urine 5.5 (5.0-9.0)
[2023-08-10 03:47] LABS: Add Urine Microscopic? YES; Specific Grav Ur 1.082 (1.001-1.035)
[2023-08-10 05:36] VITALS: BP 131/66; PULSE 66; RESP 14; TEMP 36.2; O2SAT 98
[2023-08-10 06:40] LABS: Basophils Percent Auto 0.3 % (0.2-1.2); Eosinophils Percent Auto 0.6 % (0-4.4); Hematocrit 39.9 % (37.0-47.0); Hemoglobin 12.8 g/dL (12.0-15.0); Immature Granulocyte Absolute 0.03 K/mm3 (0.00-0.031); Immature Granulocyte Percent A 0.4 % (0-0.5); Lymphocytes Percent Auto 20.8 % (18.3-44.2); Mean Corpuscular HGB Conc 32.1 g/dl (32-36); Mean Corpuscular Hemoglobin 30.7 pg (26-34); Mean Corpuscular Volume 95.7 fl (80-100); Mean Platelet Volume 9.7 fl (7.4-10.4); Monocytes Absolute Auto 0.6 K/mm3 (0.1-0.6); Monocytes Percent Auto 8.3 % (2.6-8.5); Neutrophils Percent Auto 69.6 % (45.5-73.1); Platelet Count Result 281 k/mm3 (150-375); Red Blood Count 4.17 M/mm3 (4.2-5.4); Red Cell Distribution Width 13.7 % (11.5-14.5); White Blood Count 7.2 K/mm3 (4.5-10.0)
[2023-08-10 06:57] LABS: Anion Gap 6 mmol/L (8-16); Blood Urea Nitrogen 14 mg/dL (7-17); Calcium 8.6 mg/dL (8.4-10.2); Carbon Dioxide 27 mmol/L (22-30); Chloride 105 mmol/L (98-107); Estimated CRCL calculation 73 ml/min; Estimated Glomerular Filt Rate > 60; Glucose 109 mg/dL (65-110); Potassium 3.7 mmol/L (3.4-5.0); Sodium 138 mmol/L (137-145)
[2023-08-10 08:18] VITALS: O2SAT 98
[2023-08-10] MEDS: LACTATED RINGERS 1,000 ML 125 ML IV CONT ×3 (08:18→21:22)
--- NOTE | 2023-08-10 12:00 | PM.CNGS ---
Assessment and Plan Assessment and plan (1) Small bowel obstruction: Code(s): K56.609 - Unspecified intestinal obstruction, unspecified as to partial versus complete obstruction Status: Acute Assessment and Plan: I have reviewed the CT and discussed the findings with the patient. She has had a recurrent small-bowel obstruction after just having another 1 of these about 1 month ago. Will continue with NG decompression and bowel rest at this time. Discussed with patient that with how many episodes she has had, she might have to consider exploratory laparotomy to help prevent this happening again in the future. Also discussed that surgery can result in further scar tissue which can still lead to more obstructions down the road. Patient voiced her understanding. Get an abdominal x-ray tomorrow and discuss further. (2) H/O major abdominal surgery: Code(s): Z98.890 - Other specified postprocedural states Status: Chronic (3) Tobacco dependence: Code(s): F17.200 - Nicotine dependence, unspecified, uncomplicated Status: Acute (4) COPD (chronic obstructive pulmonary disease): Code(s): J44.9 - Chronic obstructive pulmonary disease, unspecified Status: Chronic History of Present Illness Consult details Consult date: 08/10/23 Reason for consult: other (Small-bowel obstruction) Requesting physician: Basim Villalta MD Narrative: This is a 62-year-old woman who I am asked to see for a recurrent small bowel obstruction. She is well-known to the service with multiple prior bowel obstructions. She states over the last several days she began experiencing diarrhea. She felt like this did not feel like a typical bowel obstruction at 1st, but then yesterday she only had a very small amount of diarrhea and then was not passing any flatus. She also began experiencing some generalized abdominal pain similar to prior episodes. She was last hospitalized 1 month ago with a bowel obstruction and this resolved without requiring surgical intervention. She was also hospitalized in April of this year for a bowel obstruction. She has a history of open cholecystectomy and multiple surgeries following a hysterectomy for rectovaginal fistula. She had a diverting colostomy that then was taken down. She last had a laparotomy in 2019 with small-bowel resection for a small-bowel obstruction. In the emergency department if her CT showed evidence of a recurrent small-bowel obstruction. NG tube was placed and she was admitted for further treatment. This is her 4th bowel obstruction within the past 12 months. Review of Systems Review of Systems: All systems reviewed & are unremarkable except as noted in HPI and below Eyes: Eyes: Denies change in vision ENT: Denies hearing loss, Denies neck pain and Denies sore throat Cardiovascular: Cardiovascular: Denies chest pain and Denies dyspnea Respiratory: Respiratory: Denies cough, Denies dyspnea and Denies wheezing Gastrointestinal: Gastrointestinal: Reports as per HPI Genitourinary: Genitourinary: Denies hematuria and Denies dysuria Musculoskeletal: Musculoskeletal: Denies arthralgias, Denies joint swelling and Denies neck pain Allergic/Immunologic: Allergic/Immunologic: Denies wheezing [facility] Past Medical History Medical History B12 deficiency Chronic back pain Chronic constipation Chronic obstructive pulmonary disease Chronic respiratory failure with hypoxia On 2 liters nasal cannula p.r.n. Depression with anxiety Dyslipidemia GERD without esophagitis History of vaginal delivery Hypothyroidism Iron deficiency anemia Migraine headache Mixed hyperlipidemia Obstructive sleep apnea Peripheral neuropathy Restless leg syndrome, controlled Scoliosis Small bowel obstruction due to adhesions Previous, multiple admissions for such. TIA (transient ischemic attack) (~2000) Vitamin D deficiency Kay
[2023-08-10 13:47] VITALS: BP 160/67; PULSE 53; RESP 15; TEMP 36.3; O2SAT 99
--- NOTE | 2023-08-10 14:29 | PM.IMPN ---
Progress Note: A&P Assessment and Plan (1) Abdominal pain: Qualifiers: Abdominal location: generalized Qualified Code(s): R10.84 - Generalized abdominal pain Code(s): R10.9 - Unspecified abdominal pain Status: Acute Plan pt doing better with NG tube in place. appreciate surgery recs. protonix and SCD's for prophylaxis. Subjective Date/time seen: 08/10/23 14:29 Interval history: pt feels better, less nausea, pain, and abdominal distension. she hasn't had BM but is passing flatus Review of Systems Review of Systems: All systems reviewed & are unremarkable except as noted in HPI and below Exam Const: General: comfortable and no acute distress Eyes: Pupils: Equal, round and reactive pupils present Resp: Effort & Inspection: normal respiratory effort Auscultation: clear to auscultation bilaterally Cardio: Rate: regular rate Rhythm: regular rhythm Heart sounds: no gallops, no murmurs and no rubs GI: Inspection: distended GI Palp: Yes Soft to palpation Auscultation: bowels sounds not normal Other: mild distention Extrem: General: no edema Objective Data Vital Signs Vital Signs: Vital Signs - 24 hr 08/09/23 17:21 08/09/23 18:01 08/09/23 19:01 Temperature 97.5 F L Pulse Rate 81 72 74 Respiratory Rate 16 24 H 18 Blood Pressure 137/90 147/77 H 149/80 H Pulse Oximetry 98 95 94 Oxygen Delivery Room Air Oxygen Flow Rate 08/09/23 20:17 08/09/23 20:31 08/09/23 20:45 Temperature Pulse Rate 79 81 Respiratory Rate 18 18 Blood Pressure Pulse Oximetry 92 93 90 Oxygen Delivery Oxygen Flow Rate 08/09/23 21:15 08/10/23 01:00 08/10/23 05:36 Temperature 97.5 F L 97.2 F L Pulse Rate 81 81 66 Respiratory Rate 13 13 14 Blood Pressure 142/82 H 131/66 Pulse Oximetry 93 93 98 Oxygen Delivery Nasal Cannula Oxygen Flow Rate 2 08/10/23 08:18 08/10/23 13:47 Temperature 97.3 F L Pulse Rate 53 L Respiratory Rate 15 Blood Pressure 160/67 H Pulse Oximetry 98 99 Oxygen Delivery Nasal Cannula Oxygen Flow Rate 2 Intake/Output Intake/Output: Intake & Output 08/07/23 08/08/23 08/09/2308/10/23 23:59 23:59 23:59 23:59 Intake Total 1000 1000 Output Total 600 Balance 1000 400 Meds/Results Medications: Active Medications Generic Name Dose Route Start Last Admin Trade Name Freq PRN Reason Stop Dose Admin Lactated Ringer's 1,000 mls @ 125 mls/hr 08/09/23 19:00 08/10/23 08:18 Lr - Lactated Ringers Iv IV CONT 125 mls/hr .Q8H ARELI Administration Morphine Sulfate 2 mg 08/09/23 18:59 08/10/23 10:38 Morphine Sulfate (*Crx) 2 Mg/Ml Inj IV PUSH 2 mg Q2H PRN Administration Pain Rated 7-10 Ondansetron HCl 4 mg 08/09/23 19:58 08/10/23 10:37 Ondansetron Inj 4 Mg/2 Ml Vial IV PUSH 4 mg Q6H PRN Administration Nausea And Vomiting Pantoprazole Sodium 40 mg 08/11/23 09:00 Pantoprazole Sodium Iv 40 Mg Vial IV PUSH QAM [facility] Radiology Results: ITS Impressions Abdomen/Pelvis CT 08/09/23 18:28 IMPRESSION: Partial versus complete distal small bowel obstruction, likely recurrent based on the intervening normal small bowel follow-through study, transition point again at the small bowel anastomosis. Abdomen X-Ray 08/09/23 18:54 IMPRESSION: NG tube, in good position. Small bowel obstruction/ileus. Labs Labs: Laboratory Results - last 24 hr 08/09/23 08/09/23 08/10/23 17:39 17:51 03:26 WBC 13.1 H RBC 4.91 Hgb 15.2 H Hct 45.8 MCV 93.3 MCH 31.0 MCHC 33.2 RDW 13.7 Plt Count 374 MPV 9.6 Immature Gran % (Auto) 0.6 H Neut % (Auto) 72.5 Lymph % (Auto) 21.2 [place] % (Auto) 5.0 Eos % (Auto) 0.5 Baso % (Auto) 0.2 Lymph # (Auto) 2.78 [place] # (Auto) 0.7 H Eos # (Auto) 0.1 Baso # (Auto) 0.0 Abs Immat Gran (auto) 0.08 H Absolute Neuts (auto) 9.5 H Absolute Nucleated RBC 0.0 Nucleated RBC % 0.
[2023-08-10 21:54] VITALS: BP 179/76; PULSE 55; RESP 18; TEMP 36.4; O2SAT 98
[2023-08-10 22:02] VITALS: BP 138/72
[2023-08-11] MEDS: MORPHINE SULFATE (*CRX) 2 MG/ML INJ IV PUSH ×4 (02:34→20:54)
[2023-08-11] MEDS: LACTATED RINGERS 1,000 ML 125 ML IV CONT (05:25)
[2023-08-11 06:00] VITALS: BP 134/68; PULSE 58; RESP 18; TEMP 36.5; O2SAT 97
[2023-08-11 06:32] LABS: Hematocrit 39.7 % (37.0-47.0); Hemoglobin 12.4 g/dL (12.0-15.0); Mean Corpuscular HGB Conc 31.2 g/dl (32-36); Mean Corpuscular Hemoglobin 30.5 pg (26-34); Mean Corpuscular Volume 97.5 fl (80-100); Mean Platelet Volume 10.1 fl (7.4-10.4); Platelet Count Result 266 k/mm3 (150-375); Red Blood Count 4.07 M/mm3 (4.2-5.4); Red Cell Distribution Width 13.4 % (11.5-14.5); White Blood Count 9.7 K/mm3 (4.5-10.0)
[2023-08-11 06:35] LABS: Prothrombin Time 13.7 Seconds (11.1-14.7)
[2023-08-11 06:40] LABS: Anion Gap 5 mmol/L (8-16); Blood Urea Nitrogen 11 mg/dL (7-17); Calcium 8.7 mg/dL (8.4-10.2); Carbon Dioxide 31 mmol/L (22-30); Chloride 100 mmol/L (98-107); Estimated CRCL calculation 86 ml/min; Estimated Glomerular Filt Rate > 60; Glucose 85 mg/dL (65-110); Magnesium 1.7 mg/dL (1.6-2.3); Potassium 3.7 mmol/L (3.4-5.0); Sodium 136 mmol/L (137-145)
[2023-08-11 08:00] VITALS: PULSE 58; O2SAT 94
[2023-08-11] MEDS: PANTOPRAZOLE SODIUM IV 40 MG VIAL IV PUSH (08:52)
--- NOTE | 2023-08-11 11:34 | PCRCNOTE ---
Pt has home O2 for nocturnal use and with activity. Pt wears 2 L at night and with 2 L w/activity prn and room air at rest. DME, [facility]. No changes made to current home o2 settings.
--- NOTE | 2023-08-11 12:31 | PM.PNGS ---
Progress Note: A&P Assessment and Plan (1) Small bowel obstruction: Code(s): K56.609 - Unspecified intestinal obstruction, unspecified as to partial versus complete obstruction Status: Acute Assessment and Plan: Patient has been hospitalized with 4 SBO's within the last 12 months and she states many other times where she was able to treat at home and not have to come to hospital. Had long discussion with patient about treatment options. Ex Lap, possible small bowel resection would be recommended if this obstruction is not resolving. I discussed that surgery will be at increased risk for long surgery with many adhesions. This can lead to prolonged recovery, bowel injury, infection, hernia and other complications. Patient voiced her understanding and would like to proceed with surgery because she does not want to keep coming in with multiple bowel obstructions like she has. I also discussed that surgery can lead to more adhesions in the future which can lead to future bowel obstructions, but there is a chance this won't keep happening. Will plan for surgery tomorrow. (2) COPD (chronic obstructive pulmonary disease): Qualifiers: COPD type: unspecified COPD Qualified Code(s): J44.9 - Chronic obstructive pulmonary disease, unspecified Code(s): J44.9 - Chronic obstructive pulmonary disease, unspecified Status: Acute (3) Tobacco dependence: Code(s): F17.200 - Nicotine dependence, unspecified, uncomplicated Status: Acute (4) Obstructive sleep apnea: Code(s): G47.33 - Obstructive sleep apnea (adult) (pediatric) Status: Chronic Subjective Subjective Date/Time Seen: 08/11/23 12:31 Interval history: Minimal flatus, no BM. Pain somewhat improved. Patient tired of having to come in frequently with bowel obstructions. Exam GI: Inspection: non-distended GI Palp: Yes Soft to palpation, Yes Tenderness to palpation present (GI) (minimal mid abdominal) and No Guarding due to palpation present (GI) Auscultation: normal bowel sounds Objective Data Vital Signs Vital Signs: Vital Signs - 24 hr 08/10/23 13:47 08/10/23 21:54 08/10/23 22:02 Temperature 36.3 C L 36.4 C L Pulse Rate 53 L 55 L Respiratory Rate 15 18 Blood Pressure 160/67 H 179/76 H 138/72 Pulse Oximetry 99 98 Oxygen Delivery Oxygen Flow Rate 08/11/23 06:00 12/11/23 08:00 Temperature 36.5 C Pulse Rate 58 L 58 L Respiratory Rate 18 Blood Pressure 134/68 Pulse Oximetry 97 94 Oxygen Delivery Nasal Cannula Oxygen Flow Rate 2 Intake/Output Intake/Output: Intake & Output 08/08/23 08/09/23 08/10/23 08/11/23 23:59 23:59 23:59 23:59 Intake Total 1000 1999 1000 Output Total 1999 1250 Balance 1000 0 -250 Meds/Results Medications: Active Medications Generic Name Dose Route Start Last Admin Trade Name Freq PRN Reason Stop Dose Admin Lactated Ringer's 1,000 mls @ 125 mls/hr 08/09/23 19:00 08/11/23 05:25 Lr - Lactated Ringers Iv IV CONT 125 mls/hr .Q8H ARELI Administration Cefazolin Sodium 2 gm in 50 mls @ 100 mls/hr 08/11/23 12:24 Ancef 2 Gm/D5w 50 Ml IVPB 08/11/23 12:53 ONCE ONE Morphine Sulfate 2 mg 08/09/23 18:59 08/11/23 08:55 Morphine Sulfate (*Crx) 2 Mg/Ml Inj IV PUSH 2 mg Q2H PRN Administration Pain Rated 7-10 Ondansetron HCl 4 mg 08/09/23 19:58 08/10/23 10:37 Ondansetron Inj 4 Mg/2 Ml Vial IV PUSH 4 mg Q6H PRN Administration Nausea And Vomiting Pantoprazole Sodium 40 mg 08/11/23 09:00 08/11/23 08:52 Pantoprazole Sodium Iv 40 Mg Vial IV PUSH 40 mg QAM ARELI Administration Radiology Results: ITS Impressions Abdomen/Pelvis CT 08/09/23 18:28 IMPRESSION: Partial versus complete distal small bowel obstruction, likely recurrent based on the intervening normal small bowel follow-through study, transition point again at the small bowel anastomosis. Abdomen X-Ray 08/11/23 06:49 Impressio
[2023-08-11] MEDS: POTASSIUM CHLORIDE INJ 10 MEQ in DEXTROSE 5%/0.45% SOD CHL 1,000 ML 100 MEQ IV CONT (13:30)
[2023-08-11 14:00] VITALS: BP 147/70; PULSE 52; RESP 18; TEMP 36; O2SAT 98
--- NOTE | 2023-08-11 16:14 | PM.IMPN ---
Progress Note: A&P Assessment and Plan (1) Abdominal pain: Qualifiers: Abdominal location: generalized Qualified Code(s): R10.84 - Generalized abdominal pain Code(s): R10.9 - Unspecified abdominal pain Status: Acute (2) Small bowel obstruction: Code(s): K56.609 - Unspecified intestinal obstruction, unspecified as to partial versus complete obstruction Status: Acute Plan pt has made decision with surgery to continue with ex lap. she is currently improved in the nausea and abdominal pain aspects. NPO at midnight. protonix, SCD's, morphine PRN, and D5NS. full code Subjective Date/time seen: 08/11/23 16:14 Interval history: naoe. pt tolerating NG tube, denies nausea or abdominal pain. she is ready for surgery Review of Systems Review of Systems: All systems reviewed & are unremarkable except as noted in HPI and below Exam Const: General: comfortable and no acute distress Eyes: Pupils: Equal, round and reactive pupils present Resp: Effort & Inspection: normal respiratory effort Auscultation: clear to auscultation bilaterally, no crackles, no rales and no rhonchi Cardio: Rate: regular rate Rhythm: regular rhythm Heart sounds: no gallops, no murmurs and no rubs GI: GI Palp: Yes Soft to palpation and No Tenderness to palpation present (GI) Extrem: General: no edema Objective Data Vital Signs Vital Signs: Vital Signs - 24 hr 08/10/23 21:54 08/10/23 22:02 08/11/23 06:00 Temperature 97.5 F L 97.7 F Pulse Rate 55 L 58 L Respiratory Rate 18 18 Blood Pressure 179/76 H 138/72 134/68 Pulse Oximetry 98 97 Oxygen Delivery Oxygen Flow Rate 08/11/23 08:00 08/11/23 14:00 Temperature 96.8 F L Pulse Rate 58 L 52 L Respiratory Rate 18 Blood Pressure 147/70 H Pulse Oximetry 94 98 Oxygen Delivery Nasal Cannula Oxygen Flow Rate 2 Intake/Output Intake/Output: Intake & Output 08/08/23 08/09/23 08/10/23 08/11/23 23:59 23:59 23:59 23:59 Intake Total 1000 1999 1000 Output Total 1999 2149 Balance 1000 0 -1150 Meds/Results Medications: Active Medications Generic Name Dose Route Start Last Admin Trade Name Freq PRN Reason Stop Dose Admin Potassium Chloride 10 meq/ 1,005 mls @ 100 mls/hr 08/11/23 13:30 Dextrose/Sodium Chloride IV CONT .Q10H3M ARELI Morphine Sulfate 2 mg 08/09/23 18:59 08/11/23 08:55 Morphine Sulfate (*Crx) 2 Mg/Ml Inj IV PUSH 2 mg Q2H PRN Administration Pain Rated 7-10 Ondansetron HCl 4 mg 08/09/23 19:58 08/10/23 10:37 Ondansetron Inj 4 Mg/2 Ml Vial IV PUSH 4 mg Q6H PRN Administration Nausea And Vomiting Pantoprazole Sodium 40 mg 08/11/23 09:00 08/11/23 08:52 Pantoprazole Sodium Iv 40 Mg Vial IV PUSH 40 mg QAM ARELI Administration Radiology Results: ITS Impressions Abdomen/Pelvis CT 08/09/23 18:28 IMPRESSION: Partial versus complete distal small bowel obstruction, likely recurrent based on the intervening normal small bowel follow-through study, transition point again at the small bowel anastomosis. Abdomen X-Ray 08/11/23 06:49 Impression: NG tube in place. Nonspecific bowel gas pattern. Labs Labs: Laboratory Results - last 24 hr 08/11/23 05:56 WBC 9.7 RBC 4.07 L Hgb 12.4 Hct 39.7 MCV 97.5 MCH 30.5 MCHC 31.2 L RDW 13.4 Plt Count 266 MPV 10.1 PT 13.7 INR 1.0 Sodium 136 L Potassium 3.7 Chloride 100 Carbon Dioxide 31 H Anion Gap 5 L BUN 11 Creatinine 0.50 L Estim Creat Clear Calc 86 Estimated GFR > 60 Glucose 85 Calcium 8.7 Magnesium 1.7
[2023-08-11 20:31] VITALS: BP 157/118; PULSE 54; RESP 16; TEMP 36.1; O2SAT 93
[2023-08-11 21:31] VITALS: BP 176/78
[2023-08-12] VITALS (8 sets, daily range): BP systolic 131–166; BP diastolic 59–85; PULSE 55–78; RESP 15–25; TEMP 35.9–37; O2SAT 91–100
[2023-08-12] MEDS: POTASSIUM CHLORIDE INJ 10 MEQ in DEXTROSE 5%/0.45% SOD CHL 1,000 ML 100 MEQ IV CONT (02:22)
[2023-08-12 07:41] LABS: Hematocrit 40.9 % (37.0-47.0); Hemoglobin 13.3 g/dL (12.0-15.0); Mean Corpuscular HGB Conc 32.5 g/dl (32-36); Mean Corpuscular Hemoglobin 30.8 pg (26-34); Mean Corpuscular Volume 94.7 fl (80-100); Mean Platelet Volume 10.2 fl (7.4-10.4); Platelet Count Result 296 k/mm3 (150-375); Red Blood Count 4.32 M/mm3 (4.2-5.4); Red Cell Distribution Width 13.1 % (11.5-14.5); White Blood Count 8.6 K/mm3 (4.5-10.0)
[2023-08-12 08:16] LABS: Anion Gap 5 mmol/L (8-16); Blood Urea Nitrogen 5 mg/dL (7-17); Calcium 8.7 mg/dL (8.4-10.2); Carbon Dioxide 28 mmol/L (22-30); Chloride 103 mmol/L (98-107); Estimated CRCL calculation 86 ml/min; Estimated Glomerular Filt Rate > 60; Glucose 116 mg/dL (65-110); Magnesium 1.8 mg/dL (1.6-2.3); Potassium 3.6 mmol/L (3.4-5.0); Sodium 136 mmol/L (137-145)
[2023-08-12] MEDS: PANTOPRAZOLE SODIUM IV 40 MG VIAL IV PUSH (08:19)
[2023-08-12] MEDS: MORPHINE SULFATE (*CRX) 2 MG/ML INJ IV PUSH (08:20)
[2023-08-12] MEDS: LACTATED RINGERS 1,000 ML 30 ML IV CONT ×2 (13:00→17:50)
--- NOTE | 2023-08-12 13:04 | WPDANESEPPF ---
Anes - Initial Pre Proc Eval Procedure: Operation Date: 08/12/23 13:30 Proposed Procedures p Exploratory Laparotomy, Possible Bowel Resection - Nando Madsen DO Date/Time: 08/12/23 13:04 Surgeon: Kati Carrillo MD Pre Op Diagnosis: Small Bowel Obstruction Patient Data Age: 62 Gender: F Height: 1.55 m Weight: 72.3 kg Last Vital Signs Temp 97 F L 08/12/23 04:23 Pulse 55 L 08/12/23 04:23 Resp 16 08/12/23 04:23 BP 166/73 H 08/12/23 04:23 Pulse Ox 91 08/12/23 04:23 O2 Del Method Nasal Cannula 08/11/23 08:00 O2 Flow Rate 2 08/11/23 08:00 Allergies Allergy/AdvReac Type Severity Reaction Status Date / Time latex Allergy Unknown unknown Verified 08/09/23 17:54 Penicillins Allergy Unknown unknown Verified 08/09/23 17:54 Home Medications Medication Instructions Recorded Confirmed Type albuterol sulfate 90 mcg/actuation 2 inhalation inhalation Q4H PRN 09/21/19 08/09/23 History aerosol inhaler (ProAir HFA) Shortness Of Breath Or Wheezing modafinil 200 mg tablet (Provigil) 200 mg PO QAM PRN sleep apnea 09/21/19 08/09/23 History fluticasone fur. 100 mcg-umeclid 1 inh inhalation DAILY 03/28/22 08/09/23 History 62.5 mcg-vilant 25 mcg inhalat.powder (Trelegy Ellipta) magnesium hydroxide 400 mg/5 mL 5 ml PO HS PRN constipation #355 mL 04/24/22 08/09/23 Rx oral suspension (Milk of Magnesia) cyclobenzaprine 5 mg tablet 5 mg PO TID PRN muscle spasm #90 02/04/23 08/09/23 Rx tabs polyethylene glycol 3350 17 17 g PO DAILY 04/11/23 08/09/23 History gram/dose oral powder (Miralax) sennosides 8.6 mg-docusate sodium 8.6 tab-cap PO DAILY 06/29/23 08/09/23 History 50 mg tablet (Colace 2-In-1) tramadol 50 mg tablet 50 mg PO Q6H PRN pain #60 tabs 07/17/23 08/09/23 Rx amlodipine 5 mg tablet (Norvasc) 5 mg PO QAM #90 tabs 08/05/23 08/09/23 Rx pantoprazole 20 mg tablet,delayed 20 mg PO DAILY 08/09/23 08/09/23 History release Laboratory Tests 08/12/23 06:52 WBC 8.6 K/mm3 (4.5-10.0) RBC 4.32 M/mm3 (4.2-5.4) Hgb 13.3 g/dL (12.0-15.0) Hct 40.9 % (37.0-47.0) MCV 94.7 fl (80-100) MCH 30.8 pg (26-34) MCHC 32.5 g/dl (32-36) RDW 13.1 % (11.5-14.5) Plt Count 296 k/mm3 (150-375) MPV 10.2 fl (7.4-10.4) Sodium 136 L mmol/L (137-145) Potassium 3.6 mmol/L (3.4-5.0) Chloride 103 mmol/L (98-107) Carbon Dioxide 28 mmol/L (22-30) Anion Gap 5 L mmol/L (8-16) BUN 5 L D mg/dL (7-17) Creatinine 0.50 L mg/dL (0.7-1.0) Estim Creat Clear Calc 86 ml/min Estimated GFR > 60 (59 - ) Glucose 116 H mg/dL (65-110) Calcium 8.7 mg/dL (8.4-10.2) Magnesium 1.8 mg/dL (1.6-2.3) Patient hx anesthesia problems: none Family hx anesthesia problems: none Results Review: All pre-operative results and documents have been reviewed as part of the pre-operative evaluation. [facility] Past Medical History Medical History B12 deficiency Chronic back pain Chronic constipation Chronic obstructive pulmonary disease Chronic respiratory failure with hypoxia On 2 liters nasal cannula p.r.n. Depression with anxiety Dyslipidemia GERD without esophagitis History of vaginal delivery Hypothyroidism Iron deficiency anemia Migraine headache Mixed hyperlipidemia Obstructive sleep apnea Peripheral neuropathy Restless leg syndrome, controlled Scoliosis Small bowel obstruction due to adhesions Previous, multiple admissions for such. TIA (transient ischemic attack) (~2000) Vitamin D deficiency Surgical History Surgical History Bladder prolapse Repair of bladder prolapse. History of bilateral cataract extraction History of bowel resection 2009 low anterior resection History of cholecystectomy Open cholecystectomy History of colostomy History of colostomy reversal Hist
--- NOTE | 2023-08-12 13:11 | WPDHPUPDATE1 ---
History and Physical Update Update Date/Time: 08/12/23 13:11 History and Physical has been reviewed, including an updated exam of the patient. There are NO changes in the patient's condition. Risks, benefits, and alternatives have been discussed and questions answered. Patient agrees to proceed with procedure.
[2023-08-12] MEDS: ceFAZolin 2 GM/D5W 50 ML 2 GM/50 ML BAG IVPB ×2 (13:26→21:29)
--- NOTE | 2023-08-12 15:48 | PM.IMPN ---
Progress Note: A&P Assessment and Plan (1) Abdominal pain: Qualifiers: Abdominal location: generalized Qualified Code(s): R10.84 - Generalized abdominal pain Code(s): R10.9 - Unspecified abdominal pain Status: Acute Plan no medical changes. pt to go for ex lap today. trend bmp and cbc in am. appreciate surgery recs post op Subjective Date/time seen: 08/12/23 15:48 Interval history: naoe. pt is ready for surgery this AM Review of Systems Review of Systems: All systems reviewed & are unremarkable except as noted in HPI and below (subjective) Exam Const: General: comfortable and no acute distress Eyes: Pupils: Equal, round and reactive pupils present Resp: Effort & Inspection: normal respiratory effort Auscultation: clear to auscultation bilaterally Cardio: Rate: regular rate Rhythm: regular rhythm Heart sounds: no gallops, no murmurs and no rubs GI: GI Palp: Yes Soft to palpation and No Tenderness to palpation present (GI) Extrem: General: no edema Objective Data Vital Signs Vital Signs: Vital Signs - 24 hr 08/11/23 20:31 08/11/23 21:31 08/12/23 04:23 Temperature 97 F L 97 F L Pulse Rate 54 L 55 L Respiratory Rate 16 16 Blood Pressure 157/118 H 176/78 H 166/73 H Pulse Oximetry 93 91 Oxygen Delivery 08/12/23 08:00 Temperature Pulse Rate Respiratory Rate Blood Pressure Pulse Oximetry Oxygen Delivery Room Air Intake/Output Intake/Output: Intake & Output 08/09/23 08/10/23 08/11/23 08/12/23 23:59 23:59 23:59 23:59 Intake Total 999 1999 2004 50 Output Total 19990 1250 Balance 1000 0 -1545 -1200 Meds/Results Medications: Active Medications Generic Name Dose Route Start Last Admin Trade Name Freq PRN Reason Stop Dose Admin Fentanyl Citrate 25 mcg 08/12/23 13:14 Fentanyl Citrate Inj (*Crx) 100 Mcg/2 Ml Vial IV PUSH Q2M PRN Pain Potassium Chloride 10 meq/ 1,005 mls @ 100 mls/hr 08/11/23 13:30 08/12/23 02:22 Dextrose/Sodium Chloride IV CONT 100 mls/hr .Q10H3M ARELI Administration Lactated Ringer's 1,000 mls @ 30 mls/hr 08/12/23 13:15 Lr - Lactated Ringers Iv IV CONT .Q24H ARELI Lactated Ringer's 1,000 mls @ 30 mls/hr 08/12/23 13:15 Lr - Lactated Ringers Iv IV CONT .Q24H ARELI Morphine Sulfate 2 mg 08/09/23 18:59 08/12/23 08:20 Morphine Sulfate (*Crx) 2 Mg/Ml Inj IV PUSH 2 mg Q2H PRN Administration Pain Rated 7-10 Ondansetron HCl 4 mg 08/09/23 19:58 08/10/23 10:37 Ondansetron Inj 4 Mg/2 Ml Vial IV PUSH 4 mg Q6H PRN Administration Nausea And Vomiting Ondansetron HCl 4 mg 08/12/23 13:14 Ondansetron Inj 4 Mg/2 Ml Vial IV PUSH ONCE PRN Nausea Pantoprazole Sodium 40 mg 08/11/23 09:00 08/12/23 08:19 Pantoprazole Sodium Iv 40 Mg Vial IV PUSH 40 mg QAM ARELI Administration Radiology Results: ITS Impressions Abdomen/Pelvis CT 08/09/23 18:28 IMPRESSION: Partial versus complete distal small bowel obstruction, likely recurrent based on the intervening normal small bowel follow-through study, transition point again at the small bowel anastomosis. Abdomen X-Ray 08/11/23 06:49 Impression: NG tube in place. Nonspecific bowel gas pattern. Labs Labs: Laboratory Results - last 24 hr 08/12/23 06:52 WBC 8.6 RBC 4.32 Hgb 13.3 Hct 40.9 MCV 94.7 MCH 30.8 MCHC 32.5 RDW 13.1 Plt Count 296 MPV 10.2 Sodium 136 L Potassium 3.6 Chloride 103 Carbon Dioxide 28 Anion Gap 5 L BUN 5 L D Creatinine 0.50 L Estim Creat Clear Calc 86 Estimated GFR > 60 Glucose 116 H Calcium 8.7 Magnesium 1.8
[2023-08-12] MEDS: ceFAZolin SODIUM 1 GM VIAL 2 GM IV PUSH (17:26)
--- NOTE | 2023-08-12 18:08 | PM.OP ---
Procedure Note - Brief Procedure Note - Brief Date of procedure: 08/12/23 Small Bowel Obstruction Post-op diagnosis: Same Procedure performed: 1. Exploratory laparotomy 2. Extensive adhesiolysis 3. Ileal resection with [id number] anastomosis 4. Appendectomy Surgeon: Nando Madsen DO Anesthesia: GETA Findings: Extensive adhesions throughout the entire abdomen. Essentially all of the small bowel had adhesions from ligament of Treitz to ileocecal valve. Prior small bowel anastomosis identified about 20cm proximal to ileocecal valve and appeared to be the site of the recurrent obstruction. Small bowel resection performed involving this segment with a [id number] stapled anastomosis. Appendectomy performed to prevent any future risks of appendicitis. Estimated blood loss (mL): 300 Urine output (mL): -200.0 Complications: No immediate complications Condition: Stable Disposition: Floor
[2023-08-12] MEDS: fentaNYL CITRATE INJ (*CRX) 100 MCG/2 ML VIAL 25 MCG IV PUSH ×4 (18:19→18:43)
[2023-08-12] MEDS: IBUPROFEN IV 800 MG/200 ML 800 MG/200 ML BAG 400 MG IVPB (19:23)
[2023-08-12] MEDS: HYDROmorphone HCL INJ (*CRX) 1 MG/ML SYR IV PUSH (20:18)
[2023-08-12] MEDS: metroNIDAZOLE 500 MG/ISO 100ML 500 MG/100 ML BAG 100 MG IVPB (20:19)
[2023-08-12] MEDS: KCL 20 MEQ/D5/0.45% SOD CHL 1,000 ML 150 ML IV CONT (20:19)
[2023-08-13] VITALS (7 sets, daily range): BP systolic 104–136; BP diastolic 60–71; PULSE 63–78; RESP 14–18; TEMP 36.1–36.6; O2SAT 90–96; BMI 30.1
[2023-08-13] MEDS: HYDROmorphone HCL INJ (*CRX) 1 MG/ML SYR IV PUSH ×8 (00:36→23:50)
[2023-08-13] MEDS: IBUPROFEN IV 800 MG/200 ML 800 MG/200 ML BAG 400 MG IVPB ×3 (00:36→18:56)
[2023-08-13] MEDS: ONDANSETRON INJ 4 MG/2 ML VIAL IV PUSH (00:50)
[2023-08-13] MEDS: metroNIDAZOLE 500 MG/ISO 100ML 500 MG/100 ML BAG 100 MG IVPB ×2 (04:20→13:50)
[2023-08-13] MEDS: ceFAZolin 2 GM/D5W 50 ML 2 GM/50 ML BAG IVPB ×2 (05:46→15:41)
[2023-08-13 07:10] LABS: Hematocrit 37.8 % (37.0-47.0); Hemoglobin 12.3 g/dL (12.0-15.0); Mean Corpuscular HGB Conc 32.5 g/dl (32-36); Mean Corpuscular Hemoglobin 30.7 pg (26-34); Mean Corpuscular Volume 94.3 fl (80-100); Mean Platelet Volume 9.9 fl (7.4-10.4); Platelet Count Result 305 k/mm3 (150-375); Red Blood Count 4.01 M/mm3 (4.2-5.4); Red Cell Distribution Width 13.4 % (11.5-14.5); White Blood Count 12.7 K/mm3 (4.5-10.0)
[2023-08-13 07:18] LABS: Anion Gap 4 mmol/L (8-16); Blood Urea Nitrogen 6 mg/dL (7-17); Calcium 8.1 mg/dL (8.4-10.2); Carbon Dioxide 29 mmol/L (22-30); Chloride 102 mmol/L (98-107); Estimated CRCL calculation 73 ml/min; Estimated Glomerular Filt Rate > 60; Glucose 120 mg/dL (65-110); Potassium 3.7 mmol/L (3.4-5.0); Sodium 135 mmol/L (137-145)
[2023-08-13] MEDS: ENOXAPARIN 40 MG/0.4 ML SYRINGE SUB-Q (08:39)
[2023-08-13 09:37] LABS: Partial Thromboplastin Time 29.4 SECONDS (22.3-36.8)
[2023-08-13 09:41] LABS: Magnesium 1.5 mg/dL (1.6-2.3)
[2023-08-13 09:48] LABS: Transferrin 229 mg/dL (206-381)
[2023-08-13] MEDS: LIDOCAINE HCL 1% PF INJ 5 ML VIAL INFILTRATE (10:00)
[2023-08-13] MEDS: PANTOPRAZOLE SODIUM IV 40 MG VIAL IV PUSH (10:46)
[2023-08-13] MEDS: KCL 20 MEQ/D5/0.45% SOD CHL 1,000 ML 150 ML IV CONT ×3 (10:48→23:55)
[2023-08-13] MEDS: IBUPROFEN IV 800 MG/200 ML 800 MG/200 ML BAG 200 MG IVPB (10:48)
--- NOTE | 2023-08-13 11:13 | W.PM.PROC2 ---
Procedure Note - Detailed Date of Procedure 08/12/23 Pre-op Diagnosis Small Bowel Obstruction Post-op Diagnosis Same Procedure Performed 1. Exploratory laparotomy 2. Extensive adhesiolysis requiring greater than 3 hours of operating time 3. Small-bowel resection (ileum) with side to side anastomosis 4. Appendectomy Surgeon Nando Madsen, DO Anesthesia General Indications This is a 62-year-old woman who presented to the emergency department on 08/09/2023 with abdominal pain, bloating, nausea, and vomiting. She had not had a bowel movement for about 3 days. She has had multiple symptoms like this in the past. She has been hospitalized three other times within the past year. Her CT in the emergency department showed evidence of a recurrent small-bowel obstruction. NG tube was placed in she was admitted to the hospital. Extensive discussion was made with the patient about her chances of more recurrent obstructions. Surgery verses continued medical treatment was discussed. Risks of bowel injury, wound infection, other organ injury, bleeding, and need for repeat operations was explained. Patient wished to proceed with surgery. She now presents for exploratory laparotomy with possible bowel resection. Findings Exploratory laparotomy was performed. Patient was found have extensive adhesions throughout entire abdominal cavity. Essentially all of her small bowel had adhesions. It was even difficult to get into the abdominal cavity at the linea alba without encountering extensive adhesions. Adhesiolysis took greater than 3 hours of the 228 minute operating time. There was also about 300 mL of blood loss which was significantly more than a standard operation of this type. After careful adhesiolysis, I was able to identify the proximal small bowel at the ligament of Treitz and continue the adhesiolysis throughout the entire small bowel until I was able to trace it all the way down to the ileocecal valve. The obstruction appeared to be at the prior small bowel anastomosis which was about 20-30 cm away from the ileocecal valve. A small-bowel resection was performed including this area and about 8-12 inches proximal to the anastomosis. A [id number] stapled anastomosis was performed. The anastomosis appeared healthy and viable. I carefully inspected the remainder of the bowel and no other signs of obstruction were identified. The appendix was identified which appeared small and normal, but to prevent patient needing a future operation with how extensive her adhesions were, I chose to remove the appendix at this time as well. Description of Procedure Procedure as well as risks, benefits, and alternatives were discussed with the patient. Written consent was obtained and placed in chart prior to procedure. Patient was brought back to surgical suite. She was placed supine on operating table. Time-out was done to confirm patient and procedure. Patient was then intubated by anesthesia department. Her abdomen was prepped and draped in sterile fashion using chlorhexidine prep. A 20 cm vertical midline incision was made using a 10 blade scalpel. Electrocautery was used for hemostasis and for dissection through the subcutaneous tissue. The linea alba was encountered and this was carefully incised using electrocautery. Upon getting through the linea alba, it was evident that the small bowel was adherent directly deep to this. I had to carefully dissect the small bowel off of the fascia and peritoneum in order to adequately gain access into the abdominal cavity. This was done carefully using Metzenbaum scissors. In the upper abdomen I was able to identify an area that only had omentum adherent to the linea alba. Was able to enter into the abdominal cavity in this location and take down the omental adhesions. This then allowed me to continue my dissection caudally and carefully take down the small bowel adhesions to the abdominal wall. This took time as almost
[2023-08-13] MEDS: AMINO ACIDS 5%/D15W/E-LYTES/CA 2,000 ML with MULTIVITAMINS-12 INJ VIAL 1 2.5 ML, MULTIV... 60 ML IV CONT (12:06)
[2023-08-13] MEDS: FAT EMULSIONS IV 20% 250 ML 20.83 ML IVPB (12:06)
[2023-08-13 12:52] LABS: Glucose Point of Care 120 mg/dl (65-105)
--- NOTE | 2023-08-13 14:44 | WPDANESPN ---
Anes - Prog Note Post-Op Date/Time: 08/13/23 14:44 Cardiovascular status: normal Respiratory status: normal Airway patency: baseline Mental status: baseline Post-Op hydration status: normal Vital Signs: Last Vital Signs Temp 36.2 C L 08/13/23 12:00 Pulse 63 08/13/23 12:00 Resp 14 08/13/23 12:00 BP 106/60 08/13/23 12:00 Pulse Ox 95 08/13/23 12:00 O2 Del Method Nasal Cannula 08/13/23 08:00 O2 Flow Rate 2 08/13/23 08:00 Pain Score (VAS): 0 I/O: Intake & Output 08/12/23 08/13/23 08/13/23 23:59 07:59 15:59 Intake Total 550 1300 200 Output Total 190 350 Balance 360 950 200 Laboratory Tests 08/13/23 06:37 08/13/23 06:37 08/13/23 08/13/23 08/13/23 06:37 09:08 12:43 WBC 12.7 H RBC 4.01 L Hgb 12.3 Hct 37.8 MCV 94.3 MCH 30.7 MCHC 32.5 RDW 13.4 Plt Count 305 MPV 9.9 APTT 29.4 Sodium 135 L Potassium 3.7 Chloride 102 Carbon Dioxide 29 Anion Gap 4 L BUN 6 L Creatinine 0.60 L Estim Creat Clear Calc 73 Estimated GFR > 60 Glucose 120 H POC Capillary Glucose 120 H Calcium 8.1 L Magnesium 1.5 L Transferrin 229 Post-procedural complaints: none Patient Feedback: Patient satisfied with anesthetic care.
[2023-08-13] MEDS: CENTRAL LINE FLUSH 10 ML IV PUSH (15:42)
--- NOTE | 2023-08-13 16:10 | PM.IMPN ---
Progress Note: A&P Assessment and Plan (1) Small bowel obstruction: Code(s): K56.609 - Unspecified intestinal obstruction, unspecified as to partial versus complete obstruction Status: Acute (2) Pneumothorax: Code(s): J93.9 - Pneumothorax, unspecified Status: Acute Plan POD #1 ex lap w/ lysis of small bowel adhesions w/ prophylactic appendectomy and ileal resection with side to side anastomosis. appreciate surgery recs. she is on TPN now. pain is well controlled. monitor leukocytosis. this isn't unexpected. check procal in am lovenox for DVT prophylaxis small right pneumothorax likekly iatrogenic from PICC placement. o2 as needed. pt w/o dyspnea. monitor and recheck CXR in am full code. Subjective Date/time seen: 08/13/23 16:10 Interval history: naoe. pt reports discomfort belly, but she knows this is expected. Review of Systems Review of Systems: All systems reviewed & are unremarkable except as noted in HPI and below (subjective) Exam Const: General: comfortable and no acute distress Eyes: Pupils: Equal, round and reactive pupils present Neck: Neck: supple Resp: Effort & Inspection: normal respiratory effort Auscultation: clear to auscultation bilaterally Cardio: Rate: regular rate Rhythm: regular rhythm Heart sounds: no gallops, no murmurs and no rubs GI: Inspection: non-distended GI Palp: Yes Soft to palpation and No Tenderness to palpation present (GI) Auscultation: bowels sounds not normal Extrem: General: no edema Objective Data Vital Signs Vital Signs: Vital Signs - 24 hr 08/12/23 17:50 08/12/23 18:05 08/12/23 18:20 Temperature 98.6 F Pulse Rate 76 67 78 Respiratory Rate 25 H 19 22 H Blood Pressure 131/59 L 134/74 143/79 H Pulse Oximetry 100 100 100 Oxygen Delivery Simple Face Mask Simple Face Mask Simple Face Mask Oxygen Flow Rate 6 6 6 08/12/23 18:35 08/12/23 19:00 08/12/23 19:30 Temperature 96.7 F L 97.2 F L Pulse Rate 71 64 72 Respiratory Rate 15 16 16 Blood Pressure 159/80 H 154/85 H 133/72 Pulse Oximetry 96 94 96 Oxygen Delivery Nasal Cannula Oxygen Flow Rate 2 08/12/23 20:30 08/13/23 00:30 08/13/23 04:30 Temperature 97.6 F 97.4 F L 97.5 F L Pulse Rate 68 70 78 Respiratory Rate 16 16 18 Blood Pressure 135/73 136/71 116/64 Pulse Oximetry 97 96 90 Oxygen Delivery Oxygen Flow Rate 08/13/23 08:00 08/13/23 08:00 08/13/23 12:00 Temperature 97 F L 97.1 F L Pulse Rate 75 63 Respiratory Rate 16 14 Blood Pressure 112/61 106/60 Pulse Oximetry 94 94 95 Oxygen Delivery Nasal Cannula Oxygen Flow Rate 2 Intake/Output Intake/Output: Intake & Output 08/10/23 08/11/23 08/12/23 08/13/23 23:59 23:59 23:59 23:59 Intake Total 1999 2750 Output Total 19990 1440 350 Balance 0 -1545 -840 2400 Meds/Results Medications: Active Medications Generic Name Dose Route Start Last Admin Trade Name Freq PRN Reason Stop Dose Admin Enoxaparin Sodium 40 mg 08/13/23 09:00 08/13/23 08:39 Enoxaparin 40 Mg/0.4 Ml Syringe SUB-Q 40 mg DAILY ARELI Administration Hydromorphone HCl 0.5 mg 08/12/23 18:45 Hydromorphone Hcl Inj (*Crx) 1 Mg/Ml Syr IV PUSH Q2H PRN Pain Rated 4-6 Hydromorphone HCl 1 mg 08/12/23 18:45 08/13/23 14:01 Hydromorphone Hcl Inj (*Crx) 1 Mg/Ml Syr IV PUSH 1 mg Q2H PRN Administration Pain Rated 7-10 Ibuprofen 800 mg in 200 mls @ 400 mls/hr 08/12/23 19:00 08/13/23 14:22 Caldolor 800 Mg/200 Ml IVPB 08/14/23 13:29 Infused Q6H ARELI Infusion Potassium Chloride/Dextrose/Sod Cl 1,000 mls @ 150 mls/hr 08/12/23 18:45 08/13/23 15:53 Kcl 20 Meq/D5/0.45% Sod Chl IV CONT Infused .Q6H40M ARELI Infusion Dextrose 1,000 mls @ 50 mls/hr 08/13/23 08:37 Dextrose 10% IV CONT .Q20H PRN if PN is interrupted Multivitamins 2.5 ml/ 2,005 mls @ 60 mls/hr 08/13/23 12:00 08/13/23 12:06 Multivitamins 2.5 ml/ Amino IV CONT 60 mls/hr Acids/Elec
--- NOTE | 2023-08-13 16:41 | PM.PNGS ---
Progress Note: A&P Assessment and Plan (1) Small bowel obstruction: Code(s): K56.609 - Unspecified intestinal obstruction, unspecified as to partial versus complete obstruction Status: Acute Assessment and Plan: Doing well on POD#1. Anticipate lengthy postop ileus, therefore will order PICC and TPN. Await return of bowel function. Slowly increase activity. (2) Pneumothorax: Code(s): J93.9 - Pneumothorax, unspecified Status: Acute Assessment and Plan: small apical pneumothorax seen on Xray after PICC. Possibly due to barotrauma during intubation/procedure. Will get CXR tomorrow. Subjective Subjective Date/Time Seen: 08/13/23 16:41 Interval history: Pain controlled. NG in place. No flatus or BM yet. Exam GI: Inspection: incision (dressing with slight blood shadowing but otherwise dry) GI Palp: Yes Soft to palpation and Yes Tenderness to palpation present (GI) (incisional) Auscultation: absent bowel sounds Objective Data Vital Signs Vital Signs: Vital Signs - 24 hr 08/12/23 17:50 08/12/23 18:05 08/12/23 18:20 Temperature 37.0 C Pulse Rate 76 67 78 Respiratory Rate 25 H 19 22 H Blood Pressure 131/59 L 134/74 143/79 H Pulse Oximetry 100 100 100 Oxygen Delivery Simple Face Mask Simple Face Mask Simple Face Mask Oxygen Flow Rate 6 6 6 08/12/23 18:35 08/12/23 19:00 08/12/23 19:30 Temperature 35.9 C L 36.2 C L Pulse Rate 71 64 72 Respiratory Rate 15 16 16 Blood Pressure 159/80 H 154/85 H 133/72 Pulse Oximetry 96 94 96 Oxygen Delivery Nasal Cannula Oxygen Flow Rate 2 08/12/23 20:30 08/13/23 00:30 08/13/23 04:30 Temperature 36.4 C 36.3 C L 36.4 C L Pulse Rate 68 70 78 Respiratory Rate 16 16 18 Blood Pressure 135/73 136/71 116/64 Pulse Oximetry 97 96 90 Oxygen Delivery Oxygen Flow Rate 08/13/23 08:00 08/13/23 08:00 08/13/23 12:00 Temperature 36.1 C L 36.2 C L Pulse Rate 75 63 Respiratory Rate 16 14 Blood Pressure 112/61 106/60 Pulse Oximetry 94 94 95 Oxygen Delivery Nasal Cannula Oxygen Flow Rate 2 Intake/Output Intake/Output: Intake & Output 08/10/23 08/11/23 08/12/23 08/13/23 23:59 23:59 23:59 23:59 Intake Total 1999 2004 600 2750 Output Total 1999 3550 1440 350 Balance 0 -0777 -840 2400 Meds/Results Medications: Active Medications Generic Name Dose Route Start Last Admin Trade Name Freq PRN Reason Stop Dose Admin Enoxaparin Sodium 40 mg 08/13/23 09:00 08/13/23 08:39 Enoxaparin 40 Mg/0.4 Ml Syringe SUB-Q 40 mg DAILY ARELI Administration Hydromorphone HCl 0.5 mg 08/12/23 18:45 Hydromorphone Hcl Inj (*Crx) 1 Mg/Ml Syr IV PUSH Q2H PRN Pain Rated 4-6 Hydromorphone HCl 1 mg 08/12/23 18:45 08/13/23 14:01 Hydromorphone Hcl Inj (*Crx) 1 Mg/Ml Syr IV PUSH 1 mg Q2H PRN Administration Pain Rated 7-10 Ibuprofen 800 mg in 200 mls @ 400 mls/hr 08/12/23 19:00 08/13/23 14:22 Caldolor 800 Mg/200 Ml IVPB 08/14/23 13:29 Infused Q6H ARELI Infusion Potassium Chloride/Dextrose/Sod Cl 1,000 mls @ 150 mls/hr 08/12/23 18:45 08/13/23 15:53 Kcl 20 Meq/D5/0.45% Sod Chl IV CONT Infused .Q6H40M ARELI Infusion Dextrose 1,000 mls @ 50 mls/hr 08/13/23 08:37 Dextrose 10% IV CONT .Q20H PRN if PN is interrupted Multivitamins 2.5 ml/ 2,005 mls @ 60 mls/hr 08/13/23 12:00 08/13/23 12:06 Multivitamins 2.5 ml/ Amino IV CONT 60 mls/hr Acids/Electrolytes/Dextrose .Q24H ARELI Administration Protocol Fat Emulsion Intravenous 250 mls @ 20.833 mls/hr 08/13/23 12:00 08/13/23 12:06 Lipids 20% IVPB 20.83 mls/hr DAILY@1200 ARELI Administration Ondansetron HCl 4 mg 08/12/23 18:45 08/13/23 00:50 Ondansetron Inj 4 Mg/2 Ml Vial IV PUSH 4 mg Q4H PRN Administration Nausea And Vomiting Pantoprazole Sodium 40 mg 08/11/23 09:00 08/13/23 10:46 Pantoprazole Sodium Iv 40 Mg Vial IV PUSH 40 mg QAM ARELI Administration Sodium Chloride 10 ml
[2023-08-13 19:15] LABS: Glucose Point of Care 161 mg/dl (65-105)
[2023-08-14] VITALS (8 sets, daily range): BP systolic 115–146; BP diastolic 62–72; PULSE 57–70; RESP 12–18; TEMP 35.6–36.1; O2SAT 96–98
[2023-08-14 00:04] LABS: Glucose Point of Care 142 mg/dl (65-105)
[2023-08-14] MEDS: IBUPROFEN IV 800 MG/200 ML 800 MG/200 ML BAG 400 MG IVPB ×3 (01:59→12:35)
[2023-08-14] MEDS: HYDROmorphone HCL INJ (*CRX) 1 MG/ML SYR IV PUSH ×7 (02:52→23:34)
[2023-08-14 06:04] LABS: Glucose Point of Care 144 mg/dl (65-105)
[2023-08-14] MEDS: CENTRAL LINE FLUSH 10 ML IV PUSH ×3 (06:07→17:36)
[2023-08-14 06:37] LABS: Basophils Percent Auto 0.2 % (0.2-1.2); Eosinophils Absolute Auto 0.2 K/mm3 (0-0.3); Eosinophils Percent Auto 1.6 % (0-4.4); Hematocrit 32.5 % (37.0-47.0); Hemoglobin 10.5 g/dL (12.0-15.0); Immature Granulocyte Absolute 0.05 K/mm3 (0.00-0.031); Immature Granulocyte Percent A 0.4 % (0-0.5); Lymphocytes Absolute Auto 2.32 K/mm3 (0.9-3.2); Lymphocytes Percent Auto 19.1 % (18.3-44.2); Mean Corpuscular HGB Conc 32.3 g/dl (32-36); Mean Corpuscular Hemoglobin 31.2 pg (26-34); Mean Corpuscular Volume 96.4 fl (80-100); Mean Platelet Volume 9.9 fl (7.4-10.4); Monocytes Absolute Auto 0.5 K/mm3 (0.1-0.6); Monocytes Percent Auto 4.2 % (2.6-8.5); Neutrophils Absolute Auto 9.1 K/mm3 (1.3-6.7); Neutrophils Percent Auto 74.5 % (45.5-73.1); Platelet Count Result 267 k/mm3 (150-375); Red Blood Count 3.37 M/mm3 (4.2-5.4); Red Cell Distribution Width 13.8 % (11.5-14.5); White Blood Count 12.2 K/mm3 (4.5-10.0)
[2023-08-14 06:49] LABS: Alanine Aminotransferase 40 U/L (6-35); Albumin Level 2.7 g/dL (3.5-5.1); Alkaline Phosphatase 120 U/L (38-126); Anion Gap 2 mmol/L (8-16); Aspartate Amino Transferase 28 U/L (14-36); Bilirubin,Total 0.3 mg/dL (0.2-1.3); Blood Urea Nitrogen 11 mg/dL (7-17); Calcium 7.4 mg/dL (8.4-10.2); Carbon Dioxide 29 mmol/L (22-30); Chloride 106 mmol/L (98-107); Estimated CRCL calculation 105 ml/min; Estimated Glomerular Filt Rate > 60; Glucose 133 mg/dL (65-110); Magnesium 1.7 mg/dL (1.6-2.3); Phosphorus 3.5 mg/dL (2.5-4.5); Potassium 3.4 mmol/L (3.4-5.0); Sodium 137 mmol/L (137-145); Triglycerides 44 mg/dL (<150)
[2023-08-14 07:12] LABS: Procalcitonin 0.2 ng/mL
[2023-08-14] MEDS: ENOXAPARIN 40 MG/0.4 ML SYRINGE SUB-Q (09:06)
[2023-08-14] MEDS: KCL 20 MEQ/D5/0.45% SOD CHL 1,000 ML 150 ML IV CONT ×2 (09:06→12:40)
[2023-08-14] MEDS: PANTOPRAZOLE SODIUM IV 40 MG VIAL IV PUSH (09:07)
[2023-08-14 11:55] LABS: Glucose Point of Care 132 mg/dl (65-105)
--- NOTE | 2023-08-14 12:53 | PM.PNGS ---
Progress Note: A&P Assessment and Plan (1) Small bowel obstruction: Code(s): K56.609 - Unspecified intestinal obstruction, unspecified as to partial versus complete obstruction Status: Acute Assessment and Plan: Await return of bowel function, increase activity. (2) Pneumothorax: Qualifiers: Pneumothorax type: other pneumothorax Qualified Code(s): J93.83 - Other pneumothorax Code(s): J93.9 - Pneumothorax, unspecified Status: Acute Assessment and Plan: incidentally noted on Xray after PICC line placement. No change since yesterday and asymptomatic. Possibly related to barotrauma from intubation vs. already present and chronic. (3) Postoperative ileus: Code(s): K91.89 - Other postprocedural complications and disorders of digestive system; K56.7 - Ileus, unspecified Status: Acute Assessment and Plan: Continue TPN until bowel function returns. Subjective Subjective Date/Time Seen: 08/14/23 12:53 Interval history: Pain controlled. No Flatus or BM yet. No fevers. Not much activity yet, but getting up to side of bed and commode. Exam GI: Inspection: non-distended and incision (intact with tariq) GI Palp: Yes Soft to palpation and Yes Tenderness to palpation present (GI) (incisional) Auscultation: Hypoactive bowel sounds present Objective Data Vital Signs Vital Signs: Vital Signs - 24 hr 08/13/23 16:00 08/13/23 20:53 08/13/23 20:00 Temperature 36.6 C 36.1 C L Pulse Rate 65 66 Respiratory Rate 16 16 Blood Pressure 125/67 104/64 Pulse Oximetry 91 93 93 Oxygen Delivery Nasal Cannula Oxygen Flow Rate 2 08/14/23 04:48 08/14/23 08:00 08/14/23 08:00 Temperature 36.1 C L 35.7 C L Pulse Rate 61 57 L Respiratory Rate 16 16 Blood Pressure 115/65 124/63 Pulse Oximetry 96 98 98 Oxygen Delivery Nasal Cannula Oxygen Flow Rate 2 08/14/23 12:11 Temperature 35.6 C L Pulse Rate 61 Respiratory Rate 18 Blood Pressure 129/72 Pulse Oximetry 97 Oxygen Delivery Oxygen Flow Rate Intake/Output Intake/Output: Intake & Output 08/11/23 08/12/23 08/13/23 08/14/23 23:59 23:59 23:59 23:59 Intake Total 2004 600 4100 2460 Output Total 1100 1440 350 200 Balance -1545 -840 8830 9470 Meds/Results Medications: Active Medications Generic Name Dose Route Start Last Admin Trade Name Freq PRN Reason Stop Dose Admin Enoxaparin Sodium 40 mg 08/13/23 09:00 08/14/23 09:06 Enoxaparin 40 Mg/0.4 Ml Syringe SUB-Q 40 mg DAILY ARELI Administration Hydromorphone HCl 0.5 mg 08/12/23 18:45 Hydromorphone Hcl Inj (*Crx) 1 Mg/Ml Syr IV PUSH Q2H PRN Pain Rated 4-6 Hydromorphone HCl 1 mg 08/12/23 18:45 08/14/23 12:30 Hydromorphone Hcl Inj (*Crx) 1 Mg/Ml Syr IV PUSH 1 mg Q2H PRN Administration Pain Rated 7-10 Ibuprofen 800 mg in 200 mls @ 400 mls/hr 08/12/23 19:00 08/14/23 12:35 Caldolor 800 Mg/200 Ml IVPB 08/14/23 13:29 400 mls/hr Q6H ARELI Administration Dextrose 1,000 mls @ 50 mls/hr 08/13/23 08:37 Dextrose 10% IV CONT .Q20H PRN if PN is interrupted Multivitamins 2.5 ml/ 2,005 mls @ 60 mls/hr 08/13/23 12:00 08/13/23 12:06 Multivitamins 2.5 ml/ Amino IV CONT 60 mls/hr Acids/Electrolytes/Dextrose .Q24H ARELI Administration Protocol Fat Emulsion Intravenous 250 mls @ 20.833 mls/hr 08/13/23 12:00 08/13/23 12:06 Lipids 20% IVPB 20.83 mls/hr DAILY@1200 ARELI Administration Ondansetron HCl 4 mg 08/12/23 18:45 08/13/23 00:50 Ondansetron Inj 4 Mg/2 Ml Vial IV PUSH 4 mg Q4H PRN Administration Nausea And Vomiting Pantoprazole Sodium 40 mg 08/11/23 09:00 08/14/23 09:07 Pantoprazole Sodium Iv 40 Mg Vial IV PUSH 40 mg QAM ARELI Administration Sodium Chloride 10 ml 08/13/23 14:00 08/14/23 12:40 Central Line Flush IV PUSH 10 ml Q8HR ARELI Administration Sodium Chloride 10 ml 08/13/23 10:44 Central Line Flush IV PUSH P
[2023-08-14] MEDS: AMINO ACIDS 5%/D15W/E-LYTES/CA 2,000 ML with MULTIVITAMINS-12 INJ VIAL 1 2.5 ML, MULTIV... 60 ML IV CONT (13:24)
[2023-08-14] MEDS: FAT EMULSIONS IV 20% 250 ML 20.83 ML IVPB (13:24)
--- NOTE | 2023-08-14 15:22 | PM.IMPN ---
Progress Note: A&P Assessment and Plan (1) Postoperative ileus: Code(s): K91.89 - Other postprocedural complications and disorders of digestive system; K56.7 - Ileus, unspecified Status: Acute (2) Pneumothorax: Qualifiers: Pneumothorax type: other pneumothorax Qualified Code(s): J93.83 - Other pneumothorax Code(s): J93.9 - Pneumothorax, unspecified Status: Acute (3) Small bowel obstruction: Code(s): K56.609 - Unspecified intestinal obstruction, unspecified as to partial versus complete obstruction Status: Acute Plan 62F w/ PMH recurrent SOB and adhesions, chronic pain, MARÍA, HLD, depression with anxiety, COPD, presented with abdominal pain, nausea and vomiting and loose stools. POD #2 ex lap w/ lysis of small bowel adhesions w/ prophylactic appendectomy and ileal resection with side to side anastomosis. appreciate surgery recs. she is on TPN now. pain is well controlled. XR chest after PICC placement demonstrated small R pneumothorax. Stable on 08/14. No respiratory distress. CXR again in AM. could have been due to underlying COPD acute vs chronic, barotrauma, or PICC line. Last CXR last admission 07/02/23 did not demonstrate the pneumothorax. If pt's respiratory status worsens a callout to surgery is appropriate for chest tube decompression. Slight wheeze on exam today. Give 1x duoneb. lovenox and protonix full Code Subjective Date/time seen: 08/14/23 15:22 Interval history: NAOE. pt has mild abdominal pain. no nausea. she has not had flatus Review of Systems Review of Systems: All systems reviewed & are unremarkable except as noted in HPI and below (subjective) Exam Const: General: comfortable and no acute distress Eyes: Pupils: Equal, round and reactive pupils present Neck: Neck: supple Resp: Effort & Inspection: normal respiratory effort Auscultation: clear to auscultation bilaterally Cardio: Rate: regular rate Rhythm: regular rhythm Extrem: General: no edema Objective Data Vital Signs Vital Signs: Vital Signs - 24 hr 08/13/23 16:00 08/13/23 20:53 08/13/23 20:00 Temperature 98 F 97 F L Pulse Rate 65 66 Respiratory Rate 16 16 Blood Pressure 125/67 104/64 Pulse Oximetry 91 93 93 Oxygen Delivery Nasal Cannula Oxygen Flow Rate 2 08/14/23 04:48 08/14/23 08:00 08/14/23 08:00 Temperature 97 F L 96.3 F L Pulse Rate 61 57 L Respiratory Rate 16 16 Blood Pressure 115/65 124/63 Pulse Oximetry 96 98 98 Oxygen Delivery Nasal Cannula Oxygen Flow Rate 2 08/14/23 12:11 Temperature 96.0 F L Pulse Rate 61 Respiratory Rate 18 Blood Pressure 129/72 Pulse Oximetry 97 Oxygen Delivery Oxygen Flow Rate Intake/Output Intake/Output: Intake & Output 08/11/23 08/12/23 08/13/23 08/14/23 23:59 23:59 23:59 23:59 Intake Total 2004 600 4100 4715 Output Total 3550 1440 350 200 Balance -1545 -840 3750 0575 Meds/Results Medications: Active Medications Generic Name Dose Route Start Last Admin Trade Name Freq PRN Reason Stop Dose Admin Enoxaparin Sodium 40 mg 08/13/23 09:00 08/14/23 09:06 Enoxaparin 40 Mg/0.4 Ml Syringe SUB-Q 40 mg DAILY ARELI Administration Hydromorphone HCl 0.5 mg 08/12/23 18:45 Hydromorphone Hcl Inj (*Crx) 1 Mg/Ml Syr IV PUSH Q2H PRN Pain Rated 4-6 Hydromorphone HCl 1 mg 08/12/23 18:45 08/14/23 12:30 Hydromorphone Hcl Inj (*Crx) 1 Mg/Ml Syr IV PUSH 1 mg Q2H PRN Administration Pain Rated 7-10 Dextrose 1,000 mls @ 50 mls/hr 08/13/23 08:37 Dextrose 10% IV CONT .Q20H PRN if PN is interrupted Multivitamins 2.5 ml/ 2,005 mls @ 60 mls/hr 08/13/23 12:00 08/14/23 13:24 Multivitamins 2.5 ml/ Amino IV CONT 60 mls/hr Acids/Electrolytes/Dextrose .Q24H ARELI Administration Protocol Fat Emulsion Intravenous 250 mls @ 20.833 mls/hr 08/13/23 12:00 08/14/23 13:24 Lipids 20% IVPB 20.83 mls/hr DAILY@1200 ARELI Administration Ondansetron HC
[2023-08-14 16:33] LABS: Glucose Point of Care 111 mg/dl (65-105)
[2023-08-15 01:51] LABS: Glucose Point of Care 88 mg/dl (65-105)
[2023-08-15] MEDS: HYDROmorphone HCL INJ (*CRX) 1 MG/ML SYR IV PUSH ×7 (05:48→23:40)
[2023-08-15] MEDS: CENTRAL LINE FLUSH 10 ML IV PUSH ×3 (05:51→21:13)
[2023-08-15 06:00] VITALS: BP 167/67; PULSE 63; RESP 14; TEMP 35.7; O2SAT 98
[2023-08-15 06:02] LABS: Hematocrit 34.7 % (37.0-47.0); Hemoglobin 10.8 g/dL (12.0-15.0); Mean Corpuscular HGB Conc 31.1 g/dl (32-36); Mean Corpuscular Hemoglobin 30.8 pg (26-34); Mean Corpuscular Volume 98.9 fl (80-100); Mean Platelet Volume 10.1 fl (7.4-10.4); Platelet Count Result 292 k/mm3 (150-375); Red Blood Count 3.51 M/mm3 (4.2-5.4); Red Cell Distribution Width 14.2 % (11.5-14.5); White Blood Count 11.7 K/mm3 (4.5-10.0)
[2023-08-15 07:06] LABS: Anion Gap 3 mmol/L (8-16); Blood Urea Nitrogen 11 mg/dL (7-17); Carbon Dioxide 29 mmol/L (22-30); Chloride 106 mmol/L (98-107); Estimated CRCL calculation 105 ml/min; Estimated Glomerular Filt Rate > 60; Glucose 135 mg/dL (65-110); Phosphorus 3.2 mg/dL (2.5-4.5); Potassium 3.6 mmol/L (3.4-5.0); Sodium 138 mmol/L (137-145)
[2023-08-15 08:00] VITALS: O2SAT 98
[2023-08-15] MEDS: ENOXAPARIN 40 MG/0.4 ML SYRINGE SUB-Q (08:05)
[2023-08-15] MEDS: PANTOPRAZOLE SODIUM IV 40 MG VIAL IV PUSH (08:05)
[2023-08-15] MEDS: FLUTICASONE/UMECLIDIN/VILANTER 100-62.5-25 MCG ELLIPTA 1 PUFF INHALATION (09:30)
[2023-08-15 11:25] LABS: Glucose Point of Care 116 mg/dl (65-105)
[2023-08-15] MEDS: AMINO ACIDS 5%/D15W/E-LYTES/CA 2,000 ML with MULTIVITAMINS-12 INJ VIAL 1 2.5 ML, MULTIV... 60 ML IV CONT (13:07)
[2023-08-15] MEDS: FAT EMULSIONS IV 20% 250 ML 20.83 ML IVPB (13:07)
--- NOTE | 2023-08-15 13:35 | PCNFU ---
Nutrition Follow-Up Complete: Pt current nutrition is TPN of Clinimix 5/15 with 250mL of 20% lipids. TPN is providing 1522 kcal, 72g protein and 1690 mL total volume. Last recorded weight is 72.3 kg. No new weights since admission. Bowel Motility: abdomen round/tender, bowel sounds present. No BM. Labs Reviewed: glucose 135, triglycerides 44 Meds Noted: Lovenox, Dilaudid, Zofran, Protonix Skin: abdominal incision Additional Notes: POD #2 s/p ex lap w/ lysis of small bowel adhesions w/ prophylactic appendectomy and ileal resection with side to side anastomosis. Patient reports she is tolerating TPN. She is curious about when she will begin solids and what her diet will be. Patient denies nausea, vomiting, diarrhea. No BM. Hx constipation/diarrhea. Inadequate oral intake related to altered GI function as evidenced by recent surgery, need for full parenteral nutrition Nutrition Recommendations: 1. Continue with TPN of 2L Clinimix 5/15 at 60mL/hr with 250mL of 20% lipids via PICC line. TPN providing 1522 kcal, 72 g protein and 1690 ml total volume. TPN meeting around 80% EER, 80% estimated protein needs 2. Check weight. Goals: Meet estimated protein energy needs; Advance to PO intake as medically able Monitoring TPN tolerance, labs, weights, plan of care, diet advancement, stool patterns Follow up Tuesdays and Fridays
--- NOTE | 2023-08-15 14:19 | PM.PNGS ---
Progress Note: A&P Assessment and Plan (1) Small bowel obstruction: Code(s): K56.609 - Unspecified intestinal obstruction, unspecified as to partial versus complete obstruction Status: Acute Assessment and Plan: Await return of bowel function, increase activity. Passing minimal flatus. Hopefully will be able to remove NG tomorrow and start clears. (2) Pneumothorax: Qualifiers: Pneumothorax type: other pneumothorax Qualified Code(s): J93.83 - Other pneumothorax Code(s): J93.9 - Pneumothorax, unspecified Status: Acute Assessment and Plan: incidentally noted on Xray after PICC line placement. No change since 08/13 and asymptomatic. Possibly related to barotrauma from intubation vs. already present and chronic. (3) Postoperative ileus: Code(s): K91.89 - Other postprocedural complications and disorders of digestive system; K56.7 - Ileus, unspecified Status: Acute Assessment and Plan: Continue TPN until bowel function returns. Subjective Subjective Date/Time Seen: 08/15/23 14:19 Interval history: Maybe passing minimal flatus. Pain slowly improving. Not able to ambulate much yet because of supplement oxygen, NG, and IV. Exam GI: Inspection: non-distended and incision (intact with tariq) GI Palp: Yes Soft to palpation and Yes Tenderness to palpation present (GI) (incisional) Auscultation: normal bowel sounds Objective Data Vital Signs Vital Signs: Vital Signs - 24 hr 08/14/23 15:40 08/14/23 15:50 08/14/23 20:00 Temperature Pulse Rate 66 70 Respiratory Rate 18 18 Blood Pressure Pulse Oximetry 97 Oxygen Delivery Nasal Cannula Oxygen Flow Rate 2 08/14/23 22:00 08/15/23 06:00 08/15/23 08:00 Temperature 36.0 C L 35.7 C L Pulse Rate 66 63 Respiratory Rate 12 14 Blood Pressure 146/62 H 167/67 H Pulse Oximetry 97 98 98 Oxygen Delivery Nasal Cannula Oxygen Flow Rate 2 Intake/Output Intake/Output: Intake & Output 08/12/23 08/13/23 08/14/23 08/15/23 23:59 23:59 23:59 23:59 Intake Total 600 4100 4715 2375 Output Total 1440 030 770 2763 Balance -840 3750 4515 -125 Meds/Results Medications: Active Medications Generic Name Dose Route Start Last Admin Trade Name Freq PRN Reason Stop Dose Admin Albuterol 2 puff 08/14/23 15:29 Albuterol Sulfate (*Sp) Aerosol 1 Puff INHALATION Q4H PRN Shortness Of Breath Or Wheezing Enoxaparin Sodium 40 mg 08/13/23 09:00 08/15/23 08:05 Enoxaparin 40 Mg/0.4 Ml Syringe SUB-Q 40 mg DAILY ARELI Administration Fluticasone/Umeclidinium/Vilanterol 1 puff 08/15/23 09:00 08/15/23 09:30 Fluticasone/Umeclidin/Vilanter 100-62.5-25 Mcg Ellipta INHALATION 1 puff DAILY ARELI Administration Hydromorphone HCl 0.5 mg 08/12/23 18:45 Hydromorphone Hcl Inj (*Crx) 1 Mg/Ml Syr IV PUSH Q2H PRN Pain Rated 4-6 Hydromorphone HCl 1 mg 08/12/23 18:45 08/15/23 11:43 Hydromorphone Hcl Inj (*Crx) 1 Mg/Ml Syr IV PUSH 1 mg Q2H PRN Administration Pain Rated 7-10 Dextrose 1,000 mls @ 50 mls/hr 08/13/23 08:37 Dextrose 10% IV CONT .Q20H PRN if PN is interrupted Multivitamins 2.5 ml/ 2,005 mls @ 60 mls/hr 08/13/23 12:00 08/15/23 13:07 Multivitamins 2.5 ml/ Amino IV CONT 60 mls/hr Acids/Electrolytes/Dextrose .Q24H ARELI Administration Protocol Fat Emulsion Intravenous 250 mls @ 20.833 mls/hr 08/13/23 12:00 08/15/23 13:07 Lipids 20% IVPB 20.83 mls/hr DAILY@1200 ARELI Administration Miscellaneous Information 1 each 08/16/23 00:01 Order Clarification XX 09/15/23 00:00 CLARIFY ARELI Ondansetron HCl 4 mg 08/12/23 18:45 08/13/23 00:50 Ondansetron Inj 4 Mg/2 Ml Vial IV PUSH 4 mg Q4H PRN Administration Nausea And Vomiting Pantoprazole Sodium 40 mg 08/11/23 09:00 08/15/23 08:05 Pantoprazole Sodium Iv 40 Mg Vial IV PUSH 40 mg QAM ARELI Administration Sodium Chloride 10 ml 12/
--- NOTE | 2023-08-15 15:16 | PM.IMPN ---
Progress Note: A&P Assessment and Plan (1) Postoperative ileus: Code(s): K91.89 - Other postprocedural complications and disorders of digestive system; K56.7 - Ileus, unspecified Status: Acute (2) Pneumothorax: Qualifiers: Pneumothorax type: other pneumothorax Qualified Code(s): J93.83 - Other pneumothorax Code(s): J93.9 - Pneumothorax, unspecified Status: Acute (3) Small bowel obstruction: Code(s): K56.609 - Unspecified intestinal obstruction, unspecified as to partial versus complete obstruction Status: Acute Plan 62F w/ PMH recurrent SOB and adhesions, chronic pain, MARÍA, HLD, depression with anxiety, COPD, presented with abdominal pain, nausea and vomiting and loose stools. Status post ex lap w/ lysis of small bowel adhesions w/ prophylactic appendectomy and ileal resection with side to side anastomosis. appreciate surgery recs. she is on TPN now. pain is well controlled. NG tube in place XR chest after PICC placement demonstrated small R pneumothorax. Stable on 08/14. No respiratory distress. CXR again in AM. could have been due to underlying COPD acute vs chronic, barotrauma, or PICC line. Last CXR last admission 07/02/23 did not demonstrate the pneumothorax. If pt's respiratory status worsens a callout to surgery is appropriate for chest tube decompression. Postoperative ileus: Continue TPN lovenox and protonix full Code Subjective Date/time seen: 08/15/23 15:16 Interval history: No overnight events. Passing flatness. Denies any abdominal pain. NG in place and getting TPN Review of Systems Review of Systems: All systems reviewed & are unremarkable except as noted in HPI and below (subjective) Exam Narrative: GENERAL: The patient is well developed, not in acute distress HEENT: Nonicteric sclerae, PERRLA, EOMI. Oropharynx clear. Moist mucous membranes. Conjunctivae appear well perfused. CHEST: Chest wall is nontender. HEART: Regular rate and rhythm without murmur, rubs, or gallops LUNGS: Clear to auscultation bilaterally. no respiratory distress ABDOMEN: Soft, bowel sounds hypoactive, non-tender, no organomegaly. Surgical dressing in place which is clean dry and intact SKIN: No rash, no excessive bruising, petechiae, or purpura. NEUROLOGIC: Cranial nerves II-XII intact, alert and oriented x 3, no gross motor deficits EXTREMITIES: no edema, cyanosis or clubbing Objective Data Vital Signs Vital Signs: Vital Signs - 24 hr 08/14/23 15:40 08/14/23 15:50 08/14/23 20:00 Temperature Pulse Rate 66 70 Respiratory Rate 18 18 Blood Pressure Pulse Oximetry 97 Oxygen Delivery Nasal Cannula Oxygen Flow Rate 2 08/14/23 22:00 08/15/23 06:00 08/15/23 08:00 Temperature 96.8 F L 96.2 F L Pulse Rate 66 63 Respiratory Rate 12 14 Blood Pressure 146/62 H 167/67 H Pulse Oximetry 97 98 98 Oxygen Delivery Nasal Cannula Oxygen Flow Rate 2 Intake/Output Intake/Output: Intake & Output 08/12/23 08/13/23 08/14/23 08/15/23 23:59 23:59 23:59 23:59 Intake Total 600 4100 4715 2375 Output Total 1440 456 585 4389 Balance -840 3750 4515 -125 Meds/Results Medications: Active Medications Generic Name Dose Route Start Last Admin Trade Name Freq PRN Reason Stop Dose Admin Albuterol 2 puff 08/14/23 15:29 Albuterol Sulfate (*Sp) Aerosol 1 Puff INHALATION Q4H PRN Shortness Of Breath Or Wheezing Enoxaparin Sodium 40 mg 08/13/23 09:00 08/15/23 08:05 Enoxaparin 40 Mg/0.4 Ml Syringe SUB-Q 40 mg DAILY ARELI Administration Fluticasone/Umeclidinium/Vilanterol 1 puff 08/15/23 09:00 08/15/23 09:30 Fluticasone/Umeclidin/Vilanter 100-62.5-25 Mcg Ellipta INHALATION 1 puff DAILY ARELI Administration Hydromorphone HCl 0.5 mg 08/12/23 18:45 Hydromorphone Hcl Inj (*Crx) 1 Mg/Ml Syr IV PUSH Q2H PRN Pain Rated 4-6 Hydromorphone HCl 1 mg 08/12/23 18:45 08/15/23 14:40 Hydromorphone Hcl Inj (*Crx) 1 Mg/M
[2023-08-15 16:35] LABS: Glucose Point of Care 119 mg/dl (65-105)
[2023-08-15 20:00] VITALS: PULSE 70; RESP 18; O2SAT 100
[2023-08-15] MEDS: ONDANSETRON INJ 4 MG/2 ML VIAL IV PUSH (20:32)
[2023-08-15 20:35] VITALS: BP 167/77; PULSE 70; RESP 18; TEMP 36.5; O2SAT 100
[2023-08-16] MEDS: HYDROmorphone HCL INJ (*CRX) 1 MG/ML SYR IV PUSH ×5 (01:19→20:27)
--- NOTE | 2023-08-16 01:20 | PC.NURSE ---
800ml out NG
[2023-08-16 01:25] LABS: Glucose Point of Care 128 mg/dl (65-105)
[2023-08-16] MEDS: CENTRAL LINE FLUSH 10 ML IV PUSH ×2 (04:53→20:27)
[2023-08-16 05:06] LABS: Glucose Point of Care 123 mg/dl (65-105)
[2023-08-16 06:06] LABS: Basophils Absolute Auto 0.1 K/mm3 (0.0-0.1); Basophils Percent Auto 0.4 % (0.2-1.2); Eosinophils Absolute Auto 0.4 K/mm3 (0-0.3); Eosinophils Percent Auto 3.2 % (0-4.4); Hematocrit 35.8 % (37.0-47.0); Hemoglobin 11.5 g/dL (12.0-15.0); Immature Granulocyte Absolute 0.13 K/mm3 (0.00-0.031); Immature Granulocyte Percent A 1.1 % (0-0.5); Lymphocytes Absolute Auto 3.23 K/mm3 (0.9-3.2); Lymphocytes Percent Auto 26.5 % (18.3-44.2); Mean Corpuscular HGB Conc 32.1 g/dl (32-36); Mean Corpuscular Hemoglobin 30.6 pg (26-34); Mean Corpuscular Volume 95.2 fl (80-100); Monocytes Absolute Auto 0.8 K/mm3 (0.1-0.6); Monocytes Percent Auto 6.7 % (2.6-8.5); Neutrophils Absolute Auto 7.6 K/mm3 (1.3-6.7); Neutrophils Percent Auto 62.1 % (45.5-73.1); Platelet Count Result 358 k/mm3 (150-375); Red Blood Count 3.76 M/mm3 (4.2-5.4); Red Cell Distribution Width 13.6 % (11.5-14.5); White Blood Count 12.2 K/mm3 (4.5-10.0)
[2023-08-16 06:21] LABS: Alanine Aminotransferase 34 U/L (6-35); Albumin Level 3.4 g/dL (3.5-5.1); Alkaline Phosphatase 140 U/L (38-126); Anion Gap 4 mmol/L (8-16); Aspartate Amino Transferase 25 U/L (14-36); Bilirubin,Total 0.5 mg/dL (0.2-1.3); Blood Urea Nitrogen 14 mg/dL (7-17); Calcium 8.5 mg/dL (8.4-10.2); Carbon Dioxide 28 mmol/L (22-30); Chloride 103 mmol/L (98-107); Estimated CRCL calculation 105 ml/min; Estimated Glomerular Filt Rate > 60; Glucose 107 mg/dL (65-110); Magnesium 1.9 mg/dL (1.6-2.3); Phosphorus 4.7 mg/dL (2.5-4.5); Potassium 3.6 mmol/L (3.4-5.0); Sodium 135 mmol/L (137-145); Triglycerides 104 mg/dL (<150)
[2023-08-16 09:16] VITALS: O2SAT 86
[2023-08-16] MEDS: FLUTICASONE/UMECLIDIN/VILANTER 100-62.5-25 MCG ELLIPTA 1 PUFF INHALATION (09:16)
[2023-08-16 09:18] VITALS: O2SAT 91
[2023-08-16] MEDS: PANTOPRAZOLE SODIUM IV 40 MG VIAL IV PUSH (09:37)
[2023-08-16] MEDS: ENOXAPARIN 40 MG/0.4 ML SYRINGE SUB-Q (09:37)
[2023-08-16 12:25] LABS: Glucose Point of Care 121 mg/dl (65-105)
[2023-08-16] MEDS: AMINO ACIDS 5%/D15W/E-LYTES/CA 2,000 ML with MULTIVITAMINS-12 INJ VIAL 1 2.5 ML, MULTIV... 60 ML IV CONT (13:45)
[2023-08-16] MEDS: FAT EMULSIONS IV 20% 250 ML 20.83 ML IVPB (13:46)
[2023-08-16 14:00] VITALS: BP 117/75; PULSE 84; RESP 22; TEMP 36.7; O2SAT 91
--- NOTE | 2023-08-16 14:08 | PM.IMPN ---
Progress Note: A&P Assessment and Plan (1) Postoperative ileus: Code(s): K91.89 - Other postprocedural complications and disorders of digestive system; K56.7 - Ileus, unspecified Status: Acute (2) Pneumothorax: Qualifiers: Pneumothorax type: other pneumothorax Qualified Code(s): J93.83 - Other pneumothorax Code(s): J93.9 - Pneumothorax, unspecified Status: Acute (3) Small bowel obstruction: Code(s): K56.609 - Unspecified intestinal obstruction, unspecified as to partial versus complete obstruction Status: Acute Plan 62F w/ PMH recurrent SOB and adhesions, chronic pain, MARÍA, HLD, depression with anxiety, COPD, presented with abdominal pain, nausea and vomiting and loose stools. Status post ex lap w/ lysis of small bowel adhesions w/ prophylactic appendectomy and ileal resection with side to side anastomosis. appreciate surgery recs. she is on TPN now. pain is well controlled. NG tube in place encouraged ambulation XR chest after PICC placement demonstrated small R pneumothorax. Stable on 08/14. No respiratory distress. CXR again in AM. could have been due to underlying COPD acute vs chronic, barotrauma, or PICC line. Last CXR last admission 07/02/23 did not demonstrate the pneumothorax. If pt's respiratory status worsens a callout to surgery is appropriate for chest tube decompression. Postoperative ileus: Continue TPN lovenox and protonix full Code Subjective Date/time seen: 08/16/23 14:08 Interval history: Patient reports no bowel movement overnight. No flatus. No shortness of breath Review of Systems Review of Systems: All systems reviewed & are unremarkable except as noted in HPI and below (subjective) Exam Narrative: GENERAL: The patient is well developed, not in acute distress HEENT: Nonicteric sclerae, PERRLA, EOMI. Oropharynx clear. Moist mucous membranes. Conjunctivae appear well perfused. CHEST: Chest wall is nontender. HEART: Regular rate and rhythm without murmur, rubs, or gallops LUNGS: Clear to auscultation bilaterally. no respiratory distress ABDOMEN: Soft, bowel sounds hypoactive, non-tender, no organomegaly. Surgical dressing in place which is clean dry and intact SKIN: No rash, no excessive bruising, petechiae, or purpura. NEUROLOGIC: Cranial nerves II-XII intact, alert and oriented x 3, no gross motor deficits EXTREMITIES: no edema, cyanosis or clubbing Objective Data Vital Signs Vital Signs: Vital Signs - 24 hr 08/15/23 20:35 08/15/23 20:00 08/16/23 09:16 Temperature 97.7 F Pulse Rate 70 70 Respiratory Rate 18 18 Blood Pressure 167/77 H Pulse Oximetry 100 100 86 L Oxygen Delivery Nasal Cannula Room Air Oxygen Flow Rate 2 08/16/23 09:18 08/16/23 08:00 Temperature Pulse Rate Respiratory Rate Blood Pressure Pulse Oximetry 91 Oxygen Delivery Nasal Cannula Room Air Oxygen Flow Rate 2 Intake/Output Intake/Output: Intake & Output 08/13/23 08/14/23 08/15/23 08/16/23 23:59 23:59 23:59 23:59 Intake Total 4100 4715 2375 2755 Output Total 211 570 0190 2600 Balance 3750 4515 -225 155 Meds/Results Medications: Active Medications Generic Name Dose Route Start Last Admin Trade Name Freq PRN Reason Stop Dose Admin Albuterol 2 puff 08/14/23 15:29 Albuterol Sulfate (*Sp) Aerosol 1 Puff INHALATION Q4H PRN Shortness Of Breath Or Wheezing Enoxaparin Sodium 40 mg 08/13/23 09:00 08/16/23 09:37 Enoxaparin 40 Mg/0.4 Ml Syringe SUB-Q 40 mg DAILY ARELI Administration Fluticasone/Umeclidinium/Vilanterol 1 puff 08/15/23 09:00 08/16/23 09:16 Fluticasone/Umeclidin/Vilanter 100-62.5-25 Mcg Ellipta INHALATION 1 puff DAILY ARELI Administration Hydromorphone HCl 0.5 mg 08/12/23 18:45 Hydromorphone Hcl Inj (*Crx) 1 Mg/Ml Syr IV PUSH Q2H PRN Pain Rated 4-6 Hydromorphone HCl 1 mg 08/12/23 18:45 08/16/23 09:57 Hydromorphone Hcl Inj (*Crx) 1 Mg/Ml Syr IV PUSH 1 mg
--- NOTE | 2023-08-16 17:08 | PM.PNGS ---
Progress Note: A&P Assessment and Plan (1) Small bowel obstruction: Code(s): K56.609 - Unspecified intestinal obstruction, unspecified as to partial versus complete obstruction Status: Acute Assessment and Plan: Postop day 4. Extensive, difficult adhesiolysis for small bowel obstruction. Bowel function has not yet returned. Continue NPO with nasogastric tube, IV fluids, daily labs and serial daily exams. Hopefully will resolve within the next couple of days. (2) Protein-calorie malnutrition, moderate: Code(s): E44.0 - Moderate protein-calorie malnutrition Status: Acute Assessment and Plan: Continue TPN until patient able to eat adequate amounts. Subjective Subjective Date/Time Seen: 08/16/23 17:08 Post Op day: 4 Patient reports: no new complaints, pain is less, no flatus, no bowel movement and afebrile Exam Const: General: comfortable and no acute distress Orientation/consciousness: patient oriented x3 GI: Inspection: non-distended, incision (Dry and healing well) and other (Large NG output but take lots ice chips.) GI Palp: Yes Soft to palpation, Yes Tenderness to palpation present (GI) (Appropriate postoperative abdominal tenderness), No Guarding due to palpation present (GI), No Hernia present, No Palpable mass present and No Rebound tenderness present Auscultation: absent bowel sounds Neuro: General: patient oriented x3 and no focal motor deficits Extrem: General: no calf tenderness and no edema Psych: Affect: normal affect Insight: Good insight present (Psych) Judgement: Good judgement present (Psych) Objective Data Vital Signs Vital Signs: Vital Signs - 24 hr 08/15/23 20:35 08/15/23 20:00 08/16/23 09:16 Temperature 36.5 C Pulse Rate 70 70 Respiratory Rate 18 18 Blood Pressure 167/77 H Pulse Oximetry 100 100 86 L Oxygen Delivery Nasal Cannula Room Air Oxygen Flow Rate 2 08/16/23 09:18 08/16/23 08:00 08/16/23 14:00 Temperature 36.7 C Pulse Rate 84 Respiratory Rate 22 H Blood Pressure 117/75 Pulse Oximetry 91 91 Oxygen Delivery Nasal Cannula Room Air Oxygen Flow Rate 2 Intake/Output Intake/Output: Intake & Output 08/13/23 08/14/23 08/15/23 08/16/23 23:59 23:59 23:59 23:59 Intake Total 4100 4715 2375 2755 Output Total 404 587 1859 2600 Balance 3750 2425 -049 155 Meds/Results Medications: Active Medications Generic Name Dose Route Start Last Admin Trade Name Freq PRN Reason Stop Dose Admin Albuterol 2 puff 08/14/23 15:29 Albuterol Sulfate (*Sp) Aerosol 1 Puff INHALATION Q4H PRN Shortness Of Breath Or Wheezing Enoxaparin Sodium 40 mg 08/13/23 09:00 08/16/23 09:37 Enoxaparin 40 Mg/0.4 Ml Syringe SUB-Q 40 mg DAILY ARELI Administration Fluticasone/Umeclidinium/Vilanterol 1 puff 08/15/23 09:00 08/16/23 09:16 Fluticasone/Umeclidin/Vilanter 100-62.5-25 Mcg Ellipta INHALATION 1 puff DAILY ARELI Administration Hydromorphone HCl 0.5 mg 08/12/23 18:45 Hydromorphone Hcl Inj (*Crx) 1 Mg/Ml Syr IV PUSH Q2H PRN Pain Rated 4-6 Hydromorphone HCl 1 mg 08/12/23 18:45 08/16/23 09:57 Hydromorphone Hcl Inj (*Crx) 1 Mg/Ml Syr IV PUSH 1 mg Q2H PRN Administration Pain Rated 7-10 Dextrose 1,000 mls @ 50 mls/hr 08/13/23 08:37 Dextrose 10% IV CONT .Q20H PRN if PN is interrupted Multivitamins 2.5 ml/ 2,005 mls @ 70 mls/hr 08/13/23 12:00 08/16/23 13:45 Multivitamins 2.5 ml/ Amino IV CONT 60 mls/hr Acids/Electrolytes/Dextrose .Q24H ARELI Administration Protocol Fat Emulsion Intravenous 250 mls @ 20.833 mls/hr 08/13/23 12:00 08/16/23 13:46 Lipids 20% IVPB 20.83 mls/hr DAILY@1200 ARELI Administration Miscellaneous Information 1 each 08/17/23 00:01 Order Clarification XX 09/16/23 00:00 CLARIFY ARELI Ondansetron HCl 4 mg 08/12/23 18:45 08/15/23 20:32 Ondansetron Inj 4 Mg/2 Ml Vial IV PUSH 4 mg Q4H PRN Administration
[2023-08-16 20:00] VITALS: O2SAT 91
[2023-08-16 22:00] VITALS: BP 145/68; PULSE 77; RESP 23; TEMP 36.4; O2SAT 94
[2023-08-17] MEDS: HYDROmorphone HCL INJ (*CRX) 1 MG/ML SYR IV PUSH ×5 (01:45→20:54)
[2023-08-17 05:01] VITALS: BP 129/78; PULSE 76; RESP 21; TEMP 36.3; O2SAT 92
[2023-08-17] MEDS: CENTRAL LINE FLUSH 20 ML IV PUSH (06:21)
[2023-08-17] MEDS: CENTRAL LINE FLUSH 10 ML IV PUSH ×3 (06:21→21:36)
[2023-08-17 06:40] LABS: Hematocrit 34.1 % (37.0-47.0); Hemoglobin 11.4 g/dL (12.0-15.0); Mean Corpuscular HGB Conc 33.4 g/dl (32-36); Mean Corpuscular Hemoglobin 31.4 pg (26-34); Mean Corpuscular Volume 93.9 fl (80-100); Mean Platelet Volume 9.9 fl (7.4-10.4); Platelet Count Result 358 k/mm3 (150-375); Red Blood Count 3.63 M/mm3 (4.2-5.4); Red Cell Distribution Width 13.5 % (11.5-14.5); White Blood Count 10.2 K/mm3 (4.5-10.0)
[2023-08-17 06:52] LABS: Anion Gap 5 mmol/L (8-16); Blood Urea Nitrogen 13 mg/dL (7-17); Calcium 8.2 mg/dL (8.4-10.2); Carbon Dioxide 28 mmol/L (22-30); Chloride 104 mmol/L (98-107); Estimated CRCL calculation 105 ml/min; Estimated Glomerular Filt Rate > 60; Glucose 123 mg/dL (65-110); Phosphorus 4.3 mg/dL (2.5-4.5); Potassium 3.5 mmol/L (3.4-5.0); Sodium 137 mmol/L (137-145)
[2023-08-17 08:00] VITALS: O2SAT 92
[2023-08-17] MEDS: ENOXAPARIN 40 MG/0.4 ML SYRINGE SUB-Q (08:45)
[2023-08-17] MEDS: PANTOPRAZOLE SODIUM IV 40 MG VIAL IV PUSH (08:45)
[2023-08-17] MEDS: FLUTICASONE/UMECLIDIN/VILANTER 100-62.5-25 MCG ELLIPTA 1 PUFF INHALATION (10:25)
[2023-08-17 12:06] LABS: Glucose Point of Care 149 mg/dl (65-105)
[2023-08-17] MEDS: AMINO ACIDS 5%/D15W/E-LYTES/CA 2,000 ML with MULTIVITAMINS-12 INJ VIAL 1 2.5 ML, MULTIV... 70 ML IV CONT (12:17)
[2023-08-17] MEDS: FAT EMULSIONS IV 20% 250 ML 20.8 ML IVPB (12:18)
[2023-08-17 13:34] VITALS: BP 130/70; PULSE 70; RESP 20; TEMP 36.6; O2SAT 97
--- NOTE | 2023-08-17 14:27 | PM.IMPN ---
Progress Note: A&P Assessment and Plan (1) Postoperative ileus: Code(s): K91.89 - Other postprocedural complications and disorders of digestive system; K56.7 - Ileus, unspecified Status: Acute (2) Pneumothorax: Qualifiers: Pneumothorax type: other pneumothorax Qualified Code(s): J93.83 - Other pneumothorax Code(s): J93.9 - Pneumothorax, unspecified Status: Acute (3) Small bowel obstruction: Code(s): K56.609 - Unspecified intestinal obstruction, unspecified as to partial versus complete obstruction Status: Acute Plan 62F w/ PMH recurrent SOB and adhesions, chronic pain, MARÍA, HLD, depression with anxiety, COPD, presented with abdominal pain, nausea and vomiting and loose stools. Status post ex lap w/ lysis of small bowel adhesions w/ prophylactic appendectomy and ileal resection with side to side anastomosis. appreciate surgery recs. she is on TPN now. pain is well controlled. NG tube in place encouraged ambulation. She started having bowel function. NG has been removed and oral diet has been started. XR chest after PICC placement demonstrated small R pneumothorax. Stable on 08/14. No respiratory distress. CXR again in AM. could have been due to underlying COPD acute vs chronic, barotrauma, or PICC line. Last CXR last admission 07/02/23 did not demonstrate the pneumothorax. If pt's respiratory status worsens a callout to surgery is appropriate for chest tube decompression. Postoperative ileus: Continue TPN lovenox and protonix full Code Subjective Date/time seen: 08/17/23 14:27 Interval history: Several bowel movements yesterday. Tele feeling better. NG is out. Started on clear liquid diet by surgeon this morning. Review of Systems Review of Systems: All systems reviewed & are unremarkable except as noted in HPI and below (subjective) Exam Narrative: GENERAL: The patient is well developed, not in acute distress HEENT: Nonicteric sclerae, PERRLA, EOMI. Oropharynx clear. Moist mucous membranes. Conjunctivae appear well perfused. CHEST: Chest wall is nontender. HEART: Regular rate and rhythm without murmur, rubs, or gallops LUNGS: Clear to auscultation bilaterally. no respiratory distress ABDOMEN: Soft, bowel sounds hypoactive, non-tender, no organomegaly. Surgical dressing in place which is clean dry and intact SKIN: No rash, no excessive bruising, petechiae, or purpura. NEUROLOGIC: Cranial nerves II-XII intact, alert and oriented x 3, no gross motor deficits EXTREMITIES: no edema, cyanosis or clubbing Objective Data Vital Signs Vital Signs: Vital Signs - 24 hr 08/16/23 20:00 08/16/23 22:00 08/17/23 05:01 Temperature 97.5 F L 97.3 F L Pulse Rate 77 76 Respiratory Rate 23 H 21 H Blood Pressure 145/68 H 129/78 Pulse Oximetry 91 94 92 Oxygen Delivery Nasal Cannula Oxygen Flow Rate 2 08/17/23 08:00 08/17/23 13:34 Temperature 97.8 F Pulse Rate 70 Respiratory Rate 20 Blood Pressure 130/70 Pulse Oximetry 92 97 Oxygen Delivery Nasal Cannula Oxygen Flow Rate 2 Intake/Output Intake/Output: Intake & Output 08/14/23 08/15/23 08/16/23 08/17/23 23:59 23:59 23:59 23:59 Intake Total 4715 2375 2755 2255 Output Total 200 2600 2600 100 Balance 4515 -886 594 8634 Meds/Results Medications: Active Medications Generic Name Dose Route Start Last Admin Trade Name Freq PRN Reason Stop Dose Admin Albuterol 2 puff 08/14/23 15:29 Albuterol Sulfate (*Sp) Aerosol 1 Puff INHALATION Q4H PRN Shortness Of Breath Or Wheezing Enoxaparin Sodium 40 mg 08/13/23 09:00 08/17/23 08:45 Enoxaparin 40 Mg/0.4 Ml Syringe SUB-Q 40 mg DAILY ARELI Administration Fluticasone/Umeclidinium/Vilanterol 1 puff 08/15/23 09:00 08/17/23 10:25 Fluticasone/Umeclidin/Vilanter 100-62.5-25 Mcg Ellipta INHALATION 1 puff DAILY ARELI Administration Hydromorphone HCl 0.5 mg 08/12/23 18:45 Hydromorphone Hcl Inj (*Crx) 1 Mg/Ml Syr IV PUSH
--- NOTE | 2023-08-17 15:03 | PM.PNGS ---
Progress Note: A&P Assessment and Plan (1) Small bowel obstruction: Code(s): K56.609 - Unspecified intestinal obstruction, unspecified as to partial versus complete obstruction Status: Acute Assessment and Plan: Several bowel movements last night and this morning. Will discontinue NG tube and try clear liquids. Continue TPN for now. (2) Postoperative ileus: Code(s): K91.89 - Other postprocedural complications and disorders of digestive system; K56.7 - Ileus, unspecified Status: Acute Assessment and Plan: As above. Ileus not surprising due to difficulty and length of enterolysis at her surgery. Subjective Subjective Date/Time Seen: 08/17/23 15:03 Post Op day: #5 Patient reports: feels better, pain is less, bowel movement and afebrile Exam Const: General: cooperative, comfortable, no acute distress, alert and awake Orientation/consciousness: patient oriented x3 GI: Inspection: incision (Healing well) GI Palp: Yes Soft to palpation and Yes Tenderness to palpation present (GI) (Minimal appropriate tenderness) Auscultation: normal bowel sounds Objective Data Vital Signs Vital Signs: Vital Signs - 24 hr 08/16/23 20:00 08/16/23 22:00 08/17/23 05:01 Temperature 36.4 C L 36.3 C L Pulse Rate 77 76 Respiratory Rate 23 H 21 H Blood Pressure 145/68 H 129/78 Pulse Oximetry 91 94 92 Oxygen Delivery Nasal Cannula Oxygen Flow Rate 2 08/17/23 08:00 08/17/23 13:34 Temperature 36.6 C Pulse Rate 70 Respiratory Rate 20 Blood Pressure 130/70 Pulse Oximetry 92 97 Oxygen Delivery Nasal Cannula Oxygen Flow Rate 2 Intake/Output Intake/Output: Intake & Output 08/14/23 08/15/23 08/16/23 08/17/23 23:59 23:59 23:59 23:59 Intake Total 4715 2375 2755 2255 Output Total 200 2600 2600 100 Balance 4515 -059 923 8666 Meds/Results Medications: Active Medications Generic Name Dose Route Start Last Admin Trade Name Freq PRN Reason Stop Dose Admin Albuterol 2 puff 08/14/23 15:29 Albuterol Sulfate (*Sp) Aerosol 1 Puff INHALATION Q4H PRN Shortness Of Breath Or Wheezing Enoxaparin Sodium 40 mg 08/13/23 09:00 08/17/23 08:45 Enoxaparin 40 Mg/0.4 Ml Syringe SUB-Q 40 mg DAILY ARELI Administration Fluticasone/Umeclidinium/Vilanterol 1 puff 08/15/23 09:00 08/17/23 10:25 Fluticasone/Umeclidin/Vilanter 100-62.5-25 Mcg Ellipta INHALATION 1 puff DAILY ARELI Administration Hydromorphone HCl 0.5 mg 08/12/23 18:45 Hydromorphone Hcl Inj (*Crx) 1 Mg/Ml Syr IV PUSH Q2H PRN Pain Rated 4-6 Hydromorphone HCl 1 mg 08/12/23 18:45 08/17/23 12:16 Hydromorphone Hcl Inj (*Crx) 1 Mg/Ml Syr IV PUSH 1 mg Q2H PRN Administration Pain Rated 7-10 Dextrose 1,000 mls @ 50 mls/hr 08/13/23 08:37 Dextrose 10% IV CONT .Q20H PRN if PN is interrupted Multivitamins 2.5 ml/ 2,005 mls @ 70 mls/hr 08/13/23 12:00 08/17/23 12:17 Multivitamins 2.5 ml/ Amino IV CONT 70 mls/hr Acids/Electrolytes/Dextrose .Q24H ARELI Administration Protocol Fat Emulsion Intravenous 250 mls @ 20.833 mls/hr 08/13/23 12:00 08/17/23 12:18 Lipids 20% IVPB 20.8 mls/hr DAILY@1200 ARELI Administration Miscellaneous Information 1 each 08/17/23 00:01 Order Clarification XX 09/16/23 00:00 CLARIFY ARELI Ondansetron HCl 4 mg 08/12/23 18:45 08/15/23 20:32 Ondansetron Inj 4 Mg/2 Ml Vial IV PUSH 4 mg Q4H PRN Administration Nausea And Vomiting Pantoprazole Sodium 40 mg 08/11/23 09:00 08/17/23 08:45 Pantoprazole Sodium Iv 40 Mg Vial IV PUSH 40 mg QAM ARELI Administration Sodium Chloride 10 ml 08/13/23 14:00 08/17/23 06:21 Central Line Flush IV PUSH 10 ml Q8HR ARELI Administration Sodium Chloride 10 ml 08/13/23 10:44 Central Line Flush IV PUSH PRN PRN with TPN bag changes Sodium Chloride 20 ml 08/13/23 10:44 08/17/23 06:21 Central Line Flush IV PUSH 20 ml PRN PRN Administra
[2023-08-17 15:25] VITALS: PULSE 67; O2SAT 95
[2023-08-17 18:33] LABS: Glucose Point of Care 136 mg/dl (65-105)
[2023-08-17 20:00] VITALS: O2SAT 95
[2023-08-17 22:00] VITALS: BP 136/55; PULSE 69; RESP 18; TEMP 36.3; O2SAT 94
[2023-08-18] MEDS: HYDROmorphone HCL INJ (*CRX) 1 MG/ML SYR IV PUSH ×4 (00:11→12:27)
[2023-08-18 01:25] LABS: Glucose Point of Care 123 mg/dl (65-105)
[2023-08-18 06:09] VITALS: BP 127/73; PULSE 67; RESP 20; TEMP 36.4; O2SAT 96
[2023-08-18 06:19] LABS: Glucose Point of Care 125 mg/dl (65-105)
[2023-08-18 06:49] LABS: Basophils Absolute Auto 0.1 K/mm3 (0.0-0.1); Basophils Percent Auto 0.5 % (0.2-1.2); Eosinophils Absolute Auto 0.3 K/mm3 (0-0.3); Eosinophils Percent Auto 2.9 % (0-4.4); Hematocrit 36.2 % (37.0-47.0); Hemoglobin 11.5 g/dL (12.0-15.0); Immature Granulocyte Absolute 0.25 K/mm3 (0.00-0.031); Immature Granulocyte Percent A 2.2 % (0-0.5); Lymphocytes Absolute Auto 2.92 K/mm3 (0.9-3.2); Lymphocytes Percent Auto 26.1 % (18.3-44.2); Mean Corpuscular HGB Conc 31.8 g/dl (32-36); Mean Corpuscular Hemoglobin 30.3 pg (26-34); Mean Corpuscular Volume 95.5 fl (80-100); Monocytes Percent Auto 8.6 % (2.6-8.5); Neutrophils Absolute Auto 6.7 K/mm3 (1.3-6.7); Neutrophils Percent Auto 59.7 % (45.5-73.1); Platelet Count Result 391 k/mm3 (150-375); Red Blood Count 3.79 M/mm3 (4.2-5.4); Red Cell Distribution Width 13.5 % (11.5-14.5); White Blood Count 11.2 K/mm3 (4.5-10.0)
[2023-08-18 07:02] LABS: Alanine Aminotransferase 31 U/L (6-35); Albumin Level 3.4 g/dL (3.5-5.1); Alkaline Phosphatase 159 U/L (38-126); Anion Gap 5 mmol/L (8-16); Aspartate Amino Transferase 54 U/L (14-36); Bilirubin,Total 0.4 mg/dL (0.2-1.3); Blood Urea Nitrogen 16 mg/dL (7-17); Calcium 8.6 mg/dL (8.4-10.2); Carbon Dioxide 28 mmol/L (22-30); Chloride 102 mmol/L (98-107); Estimated CRCL calculation 86 ml/min; Estimated Glomerular Filt Rate > 60; Glucose 123 mg/dL (65-110); Phosphorus 4.6 mg/dL (2.5-4.5); Potassium 3.6 mmol/L (3.4-5.0); Sodium 135 mmol/L (137-145); Triglycerides 118 mg/dL (<150)
[2023-08-18 07:04] LABS: Prothrombin Time 13.3 Seconds (11.1-14.7)
[2023-08-18 07:05] LABS: Partial Thromboplastin Time 32.7 SECONDS (22.3-36.8)
[2023-08-18 07:12] LABS: Transferrin 230 mg/dL (206-381)
--- NOTE | 2023-08-18 08:31 | PM.PNGS ---
Progress Note: A&P Assessment and Plan (1) Small bowel obstruction: Code(s): K56.609 - Unspecified intestinal obstruction, unspecified as to partial versus complete obstruction Status: Acute Assessment and Plan: Advance to full liquids. Stop TPN after current bag. Continuing to improve. (2) Postoperative ileus: Code(s): K91.89 - Other postprocedural complications and disorders of digestive system; K56.7 - Ileus, unspecified Status: Acute Assessment and Plan: Resolved (3) Pneumothorax: Qualifiers: Pneumothorax type: other pneumothorax Qualified Code(s): J93.83 - Other pneumothorax Code(s): J93.9 - Pneumothorax, unspecified Status: Acute Assessment and Plan: Will get CXR tomorrow to assess any improvement in the past 4 days. Subjective Subjective Date/Time Seen: 08/18/23 08:31 Interval history: Bowels moving. Tolerating clear liquids. No bloating or nausea. Breathing improved. Exam GI: Inspection: incision (Healing well) GI Palp: Yes Soft to palpation and Yes Tenderness to palpation present (GI) (Minimal appropriate tenderness) Auscultation: normal bowel sounds Objective Data Vital Signs Vital Signs: Vital Signs - 24 hr 08/17/23 13:34 08/17/23 15:25 08/17/23 20:00 Temperature 36.6 C Pulse Rate 70 67 Respiratory Rate 20 Blood Pressure 130/70 Pulse Oximetry 97 95 95 Oxygen Delivery Nasal Cannula Nasal Cannula Oxygen Flow Rate 2 2 08/17/23 22:00 08/18/23 06:09 Temperature 36.3 C L 36.4 C L Pulse Rate 69 67 Respiratory Rate 18 20 Blood Pressure 136/55 L 127/73 Pulse Oximetry 94 96 Oxygen Delivery Oxygen Flow Rate Intake/Output Intake/Output: Intake & Output 08/15/23 08/16/23 08/17/23 08/18/23 23:59 23:59 23:59 23:59 Intake Total 2375 2965 2495 450 Output Total 2600 2600 100 Balance -438 137 6770 450 Meds/Results Medications: Active Medications Generic Name Dose Route Start Last Admin Trade Name Freq PRN Reason Stop Dose Admin Albuterol 2 puff 08/14/23 15:29 Albuterol Sulfate (*Sp) Aerosol 1 Puff INHALATION Q4H PRN Shortness Of Breath Or Wheezing Enoxaparin Sodium 40 mg 08/13/23 09:00 08/17/23 08:45 Enoxaparin 40 Mg/0.4 Ml Syringe SUB-Q 40 mg DAILY ARELI Administration Fluticasone/Umeclidinium/Vilanterol 1 puff 08/15/23 09:00 08/17/23 10:25 Fluticasone/Umeclidin/Vilanter 100-62.5-25 Mcg Ellipta INHALATION 1 puff DAILY ARELI Administration Hydromorphone HCl 0.5 mg 08/12/23 18:45 Hydromorphone Hcl Inj (*Crx) 1 Mg/Ml Syr IV PUSH Q2H PRN Pain Rated 4-6 Hydromorphone HCl 1 mg 08/12/23 18:45 08/18/23 06:38 Hydromorphone Hcl Inj (*Crx) 1 Mg/Ml Syr IV PUSH 1 mg Q2H PRN Administration Pain Rated 7-10 Dextrose 1,000 mls @ 50 mls/hr 08/13/23 08:37 Dextrose 10% IV CONT .Q20H PRN if PN is interrupted Miscellaneous Information 1 each 08/17/23 00:01 08/18/23 05:58 Order Clarification XX 09/16/23 00:00 Not Given CLARIFY ARELI Ondansetron HCl 4 mg 08/12/23 18:45 08/15/23 20:32 Ondansetron Inj 4 Mg/2 Ml Vial IV PUSH 4 mg Q4H PRN Administration Nausea And Vomiting Pantoprazole Sodium 40 mg 08/11/23 09:00 08/17/23 08:45 Pantoprazole Sodium Iv 40 Mg Vial IV PUSH 40 mg QAM ARELI Administration Sodium Chloride 10 ml 08/13/23 14:00 08/18/23 05:54 Central Line Flush IV PUSH Not Given Q8HR ARELI Sodium Chloride 10 ml 08/13/23 10:44 Central Line Flush IV PUSH PRN PRN with TPN bag changes Sodium Chloride 20 ml 08/13/23 10:44 08/17/23 06:21 Central Line Flush IV PUSH 20 ml PRN PRN Administration after blood draws Radiology Results: ITS Impressions Abdomen/Pelvis CT 08/09/23 18:28 IMPRESSION: Partial versus complete distal small bowel obstruction, likely recurrent based on the intervening normal small bowel follow-through study, transition poin
[2023-08-18 09:45] VITALS: O2SAT 93
[2023-08-18] MEDS: PANTOPRAZOLE SODIUM IV 40 MG VIAL IV PUSH (10:04)
[2023-08-18] MEDS: ENOXAPARIN 40 MG/0.4 ML SYRINGE SUB-Q (10:04)
[2023-08-18] MEDS: HYDROcodone/acetaminophen (*CRX) 5-325 MG TABLET 1 TAB PO ×3 (10:05→22:33)
[2023-08-18] MEDS: CENTRAL LINE FLUSH 10 ML IV PUSH ×2 (13:36→22:34)
--- NOTE | 2023-08-18 13:59 | PM.IMPN ---
Progress Note: A&P Assessment and Plan (1) Postoperative ileus: Code(s): K91.89 - Other postprocedural complications and disorders of digestive system; K56.7 - Ileus, unspecified Status: Acute (2) Pneumothorax: Qualifiers: Pneumothorax type: other pneumothorax Qualified Code(s): J93.83 - Other pneumothorax Code(s): J93.9 - Pneumothorax, unspecified Status: Acute (3) Small bowel obstruction: Code(s): K56.609 - Unspecified intestinal obstruction, unspecified as to partial versus complete obstruction Status: Acute Plan 62F w/ PMH recurrent SOB and adhesions, chronic pain, MARÍA, HLD, depression with anxiety, COPD, presented with abdominal pain, nausea and vomiting and loose stools. Status post ex lap w/ lysis of small bowel adhesions w/ prophylactic appendectomy and ileal resection with side to side anastomosis. appreciate surgery recs. she is on TPN now. pain is well controlled. NG tube in place encouraged ambulation. She started having bowel function. NG has been removed and oral diet has been started. TPN off today and further advancement of diet. XR chest after PICC placement demonstrated small R pneumothorax. Stable on 08/14. No respiratory distress. CXR again in AM. could have been due to underlying COPD acute vs chronic, barotrauma, or PICC line. Last CXR last admission 07/02/23 did not demonstrate the pneumothorax. If pt's respiratory status worsens a callout to surgery is appropriate for chest tube decompression. Postoperative ileus: Continue TPN lovenox and protonix full Code Subjective Date/time seen: 08/18/23 13:59 Interval history: Having some runs of bowel movement today. Reports some abdominal discomfort. Planning to try full liquid today. No other complaints Review of Systems Review of Systems: All systems reviewed & are unremarkable except as noted in HPI and below (subjective) Exam Narrative: GENERAL: The patient is well developed, not in acute distress HEENT: Nonicteric sclerae, PERRLA, EOMI. Oropharynx clear. Moist mucous membranes. Conjunctivae appear well perfused. CHEST: Chest wall is nontender. HEART: Regular rate and rhythm without murmur, rubs, or gallops LUNGS: Clear to auscultation bilaterally. no respiratory distress ABDOMEN: Soft, bowel sounds hypoactive, mildly tender periumbilical area, no organomegaly. Surgical dressing in place which is clean dry and intact SKIN: No rash, no excessive bruising, petechiae, or purpura. NEUROLOGIC: Cranial nerves II-XII intact, alert and oriented x 3, no gross motor deficits EXTREMITIES: no edema, cyanosis or clubbing Objective Data Vital Signs Vital Signs: Vital Signs - 24 hr 08/17/23 15:25 08/17/23 20:00 08/17/23 22:00 Temperature 97.4 F L Pulse Rate 67 69 Respiratory Rate 18 Blood Pressure 136/55 L Pulse Oximetry 95 95 94 Oxygen Delivery Nasal Cannula Nasal Cannula Oxygen Flow Rate 2 2 08/18/23 06:09 08/18/23 09:45 Temperature 97.5 F L Pulse Rate 67 Respiratory Rate 20 Blood Pressure 127/73 Pulse Oximetry 96 93 Oxygen Delivery Room Air Oxygen Flow Rate Intake/Output Intake/Output: Intake & Output 08/15/23 08/16/23 08/17/23 08/18/23 23:59 23:59 23:59 23:59 Intake Total 2375 2755 2495 750 Output Total 2600 2600 100 Balance -521 373 9257 750 Meds/Results Medications: Active Medications Generic Name Dose Route Start Last Admin Trade Name Freq PRN Reason Stop Dose Admin Hydrocodone Bitart/Acetaminophen 1 tab 08/18/23 08:34 08/18/23 10:05 Hydrocodone/Acetaminophen (*Crx) 5-325 Mg Tablet PO 1 tab Q4H PRN Administration Pain Rated 4-6 Albuterol 2 puff 08/14/23 15:29 Albuterol Sulfate (*Sp) Aerosol 1 Puff INHALATION Q4H PRN Shortness Of Breath Or Wheezing Enoxaparin Sodium 40 mg 08/13/23 09:00 08/18/23 10:04 Enoxaparin 40 Mg/0.4 Ml Syringe SUB-Q 40 mg DAILY ARELI Administration Fluticasone/Umeclidinium/Vilanter
[2023-08-18 14:14] VITALS: BP 118/63; PULSE 65; RESP 20; TEMP 35.9; O2SAT 95
--- NOTE | 2023-08-18 14:54 | PCRCNOTE ---
Window of time for administration has passed. See next scheduled administration.
[2023-08-18 22:07] VITALS: BP 117/71; PULSE 76; RESP 18; TEMP 36.9; O2SAT 91
[2023-08-19] MEDS: ONDANSETRON INJ 4 MG/2 ML VIAL IV PUSH ×5 (01:16→20:43)
[2023-08-19] MEDS: HYDROmorphone HCL INJ (*CRX) 1 MG/ML SYR 0.5 MG IV PUSH (05:17)
[2023-08-19] MEDS: CENTRAL LINE FLUSH 10 ML IV PUSH ×2 (05:18→12:31)
[2023-08-19 05:28] LABS: Basophils Absolute Auto 0.1 K/mm3 (0.0-0.1); Basophils Percent Auto 0.4 % (0.2-1.2); Eosinophils Absolute Auto 0.3 K/mm3 (0-0.3); Eosinophils Percent Auto 2.8 % (0-4.4); Hemoglobin 11.7 g/dL (12.0-15.0); Immature Granulocyte Absolute 0.25 K/mm3 (0.00-0.031); Immature Granulocyte Percent A 2.2 % (0-0.5); Lymphocytes Absolute Auto 2.36 K/mm3 (0.9-3.2); Lymphocytes Percent Auto 20.4 % (18.3-44.2); Mean Corpuscular HGB Conc 32.5 g/dl (32-36); Mean Corpuscular Hemoglobin 30.6 pg (26-34); Mean Corpuscular Volume 94.2 fl (80-100); Mean Platelet Volume 9.8 fl (7.4-10.4); Monocytes Absolute Auto 0.8 K/mm3 (0.1-0.6); Monocytes Percent Auto 6.7 % (2.6-8.5); Neutrophils Absolute Auto 7.8 K/mm3 (1.3-6.7); Neutrophils Percent Auto 67.5 % (45.5-73.1); Platelet Count Result 442 k/mm3 (150-375); Red Blood Count 3.82 M/mm3 (4.2-5.4); Red Cell Distribution Width 13.6 % (11.5-14.5); White Blood Count 11.6 K/mm3 (4.5-10.0)
[2023-08-19 05:42] LABS: Alanine Aminotransferase 31 U/L (6-35); Albumin Level 3.7 g/dL (3.5-5.1); Alkaline Phosphatase 188 U/L (38-126); Anion Gap 8 mmol/L (8-16); Aspartate Amino Transferase 36 U/L (14-36); Bilirubin,Total 0.5 mg/dL (0.2-1.3); Blood Urea Nitrogen 14 mg/dL (7-17); Calcium 8.9 mg/dL (8.4-10.2); Carbon Dioxide 28 mmol/L (22-30); Chloride 100 mmol/L (98-107); Estimated CRCL calculation 86 ml/min; Estimated Glomerular Filt Rate > 60; Glucose 126 mg/dL (65-110); Phosphorus 4.6 mg/dL (2.5-4.5); Potassium 3.7 mmol/L (3.4-5.0); Sodium 136 mmol/L (137-145)
[2023-08-19 06:12] VITALS: BP 122/74; PULSE 80; RESP 18; TEMP 36.9; O2SAT 93
[2023-08-19] MEDS: HYDROmorphone HCL INJ (*CRX) 1 MG/ML SYR IV PUSH ×3 (08:40→16:47)
[2023-08-19] MEDS: ENOXAPARIN 40 MG/0.4 ML SYRINGE SUB-Q (08:40)
[2023-08-19] MEDS: PANTOPRAZOLE SODIUM IV 40 MG VIAL IV PUSH (08:41)
[2023-08-19 08:45] VITALS: O2SAT 93
[2023-08-19] MEDS: FLUTICASONE/UMECLIDIN/VILANTER 100-62.5-25 MCG ELLIPTA 1 PUFF INHALATION (10:44)
[2023-08-19 10:46] VITALS: RESP 18; O2SAT 92
--- NOTE | 2023-08-19 11:49 | PM.PNGS ---
Progress Note: A&P Assessment and Plan (1) Small bowel obstruction: Code(s): K56.609 - Unspecified intestinal obstruction, unspecified as to partial versus complete obstruction Status: Acute Assessment and Plan: Having more nausea and vomiting today. Back off to clear liquids. Restart IV fluids. Will consider replacing NG if vomiting persists. (2) Postoperative ileus: Code(s): K91.89 - Other postprocedural complications and disorders of digestive system; K56.7 - Ileus, unspecified Status: Acute Assessment and Plan: Abdominal Xray this AM shows a couple dilated loops of bowel. Bowels were moving for 2 days, but now have decreased. Continue to monitor. (3) Pneumothorax: Qualifiers: Pneumothorax type: other pneumothorax Qualified Code(s): J93.83 - Other pneumothorax Code(s): J93.9 - Pneumothorax, unspecified Status: Acute Assessment and Plan: Persistent pneumothorax, but no significant change other than pleural effusion component too. Continue to monitor. Subjective Subjective Date/Time Seen: 08/19/23 11:49 Interval history: Nausea and vomiting overnight. Had multiple BMs yesterday. No flatus or BM today. Feeling persistently nauseated and having reflux. Exam GI: Inspection: incision (intact with tariq) GI Palp: Yes Soft to palpation and Yes Tenderness to palpation present (GI) (Upper abdominal pain, mild distention) Objective Data Vital Signs Vital Signs: Vital Signs - 24 hr 08/18/23 14:14 08/18/23 22:07 08/19/23 06:12 Temperature 35.9 C L 36.9 C 36.9 C Pulse Rate 65 76 80 Respiratory Rate 20 18 18 Blood Pressure 118/63 117/71 122/74 Pulse Oximetry 95 91 93 Oxygen Delivery Oxygen Flow Rate 08/19/23 08:45 08/19/23 10:46 08/19/23 10:46 Temperature Pulse Rate Respiratory Rate 18 Blood Pressure Pulse Oximetry 93 92 Oxygen Delivery Nasal Cannula Nasal Cannula Oxygen Flow Rate 2 2 Intake/Output Intake/Output: Intake & Output 08/16/23 08/17/23 08/18/23 08/19/23 23:59 23:59 23:59 23:59 Intake Total 2755 2495 2120 200 Output Total 2600 100 Balance 155 2395 2120 200 Meds/Results Medications: Active Medications Generic Name Dose Route Start Last Admin Trade Name Freq PRN Reason Stop Dose Admin Hydrocodone Bitart/Acetaminophen 1 tab 08/18/23 08:34 08/18/23 22:33 Hydrocodone/Acetaminophen (*Crx) 5-325 Mg Tablet PO 1 tab Q4H PRN Administration Pain Rated 4-6 Albuterol 2 puff 08/14/23 15:29 Albuterol Sulfate (*Sp) Aerosol 1 Puff INHALATION Q4H PRN Shortness Of Breath Or Wheezing Enoxaparin Sodium 40 mg 08/13/23 09:00 08/19/23 08:40 Enoxaparin 40 Mg/0.4 Ml Syringe SUB-Q 40 mg DAILY ARELI Administration Fluticasone/Umeclidinium/Vilanterol 1 puff 08/15/23 09:00 08/19/23 10:44 Fluticasone/Umeclidin/Vilanter 100-62.5-25 Mcg Ellipta INHALATION 1 puff DAILY ARELI Administration Hydromorphone HCl 0.5 mg 08/12/23 18:45 08/19/23 05:17 Hydromorphone Hcl Inj (*Crx) 1 Mg/Ml Syr IV PUSH 0.5 mg Q2H PRN Administration Pain Rated 4-6 Hydromorphone HCl 1 mg 08/12/23 18:45 08/19/23 08:40 Hydromorphone Hcl Inj (*Crx) 1 Mg/Ml Syr IV PUSH 1 mg Q2H PRN Administration Pain Rated 7-10 Dextrose 1,000 mls @ 50 mls/hr 08/13/23 08:37 Dextrose 10% IV CONT .Q20H PRN if PN is interrupted Potassium Chloride/Dextrose/Sod Cl 1,000 mls @ 100 mls/hr 08/19/23 11:45 Kcl 20 Meq/D5/0.45% Sod Chl IV CONT .Q10H ARELI Ibuprofen 600 mg 08/18/23 08:34 Ibuprofen 600 Mg Tablet PO Q6H PRN Pain Rated 1-3 Ondansetron HCl 4 mg 08/12/23 18:45 08/19/23 08:40 Ondansetron Inj 4 Mg/2 Ml Vial IV PUSH 4 mg Q4H PRN Administration Nausea And Vomiting Pantoprazole Sodium 40 mg 08/11/23 09:00 08/19/23 08:41 Pantoprazole Sodium Iv 40 Mg Vial IV PUSH 40 mg QAM ARELI Administration Promethazine HCl 12.
[2023-08-19] MEDS: PROMETHAZINE HCL 25 MG/ML AMPUL 12.5 MG IV PUSH ×3 (11:54→20:59)
[2023-08-19] MEDS: BISACODYL 10 MG SUPPOSITORY RECTAL (12:29)
[2023-08-19] MEDS: KCL 20 MEQ/D5/0.45% SOD CHL 1,000 ML 100 ML IV CONT (12:29)
--- NOTE | 2023-08-19 12:41 | PCNFU ---
Nutrition Follow-Up Complete: Inadequate oral intake related to altered GI function as evidenced by recent surgery, need for full parenteral nutrition Goal:Meet estimated protein energy needs Advance to PO intake as medically able Pt current nutrition is clear liquids. Nutrition recommendation: advance as tolerated Last recorded weight is 75.4 kg. Bowel Motility:+BM 08/18 Labs Reviewed:Hgb:11.7, HCT:36, NA:136, Cr:0.5, Glu:126 Meds Noted: lovenox, zofran Skin: no skin issues noted Additional Notes: Pt was upgraded to full liquids, did not tolerate, c/o nausea and vomiting. Diet downgraded back to clear liquids. TPN no longer running. Monitoring diet order, tolerance, labs, weights, plan of care, diet advancement, stool patterns Follow up Tuesdays and Fridays
--- NOTE | 2023-08-19 16:37 | PM.IMPN ---
Progress Note: A&P Assessment and Plan (1) Postoperative ileus: Code(s): K91.89 - Other postprocedural complications and disorders of digestive system; K56.7 - Ileus, unspecified Status: Acute (2) Pneumothorax: Qualifiers: Pneumothorax type: other pneumothorax Qualified Code(s): J93.83 - Other pneumothorax Code(s): J93.9 - Pneumothorax, unspecified Status: Acute (3) Small bowel obstruction: Code(s): K56.609 - Unspecified intestinal obstruction, unspecified as to partial versus complete obstruction Status: Acute Plan 62F w/ PMH recurrent SOB and adhesions, chronic pain, MARÍA, HLD, depression with anxiety, COPD, presented with abdominal pain, nausea and vomiting and loose stools. Status post ex lap w/ lysis of small bowel adhesions w/ prophylactic appendectomy and ileal resection with side to side anastomosis. appreciate surgery recs. she is on TPN now. pain is well controlled. NG tube in place encouraged ambulation. She started having bowel function. NG has been removed and oral diet has been started. TPN off now and further advancement of diet. However did not tolerate and having increased pain. Suspected postoperative ileus. Back to clear liquid if nausea and vomiting starts may need NG tube placement again XR chest after PICC placement demonstrated small R pneumothorax. Stable on 08/14. No respiratory distress. CXR again in AM. could have been due to underlying COPD acute vs chronic, barotrauma, or PICC line. Last CXR last admission 07/02/23 did not demonstrate the pneumothorax. If pt's respiratory status worsens a callout to surgery is appropriate for chest tube decompression. Pneumothorax stable with some pleural effusion today. Postoperative ileus: Continue TPN lovenox and protonix full Code Subjective Date/time seen: 08/19/23 16:37 Interval history: Patient reporting more and increased abdominal pain today and epigastric area. Feeling nauseous as well. Has not had any bowel movement since yesterday. No flat us as well. Discussed with General surgery. Chest x-ray and abdominal x-ray reviewed. Labs reviewed. Review of Systems Review of Systems: All systems reviewed & are unremarkable except as noted in HPI and below (subjective) Exam Narrative: GENERAL: The patient is well developed, not in acute distress HEENT: Nonicteric sclerae, PERRLA, EOMI. Oropharynx clear. Moist mucous membranes. Conjunctivae appear well perfused. CHEST: Chest wall is nontender. HEART: Regular rate and rhythm without murmur, rubs, or gallops LUNGS: Clear to auscultation bilaterally. no respiratory distress ABDOMEN: Soft, bowel sounds hypoactive, tender periumbilical area, no organomegaly. Surgical dressing in place which is clean dry and intact SKIN: No rash, no excessive bruising, petechiae, or purpura. NEUROLOGIC: Cranial nerves II-XII intact, alert and oriented x 3, no gross motor deficits EXTREMITIES: no edema, cyanosis or clubbing Objective Data Vital Signs Vital Signs: Vital Signs - 24 hr 08/18/23 22:07 08/19/23 06:12 08/19/23 08:45 Temperature 98.5 F 98.4 F Pulse Rate 76 80 Respiratory Rate 18 18 Blood Pressure 117/71 122/74 Pulse Oximetry 91 93 93 Oxygen Delivery Nasal Cannula Oxygen Flow Rate 2 08/19/23 10:46 08/19/23 10:46 Temperature Pulse Rate Respiratory Rate 18 Blood Pressure Pulse Oximetry 92 Oxygen Delivery Nasal Cannula Oxygen Flow Rate 2 Intake/Output Intake/Output: Intake & Output 08/16/23 08/17/23 08/18/23 08/19/23 23:59 23:59 23:59 23:59 Intake Total 2755 2495 2120 250 Output Total 2600 100 Balance 155 2395 2120 250 Meds/Results Medications: Active Medications Generic Name Dose Route Start Last Admin Trade Name Freq PRN Reason Stop Dose Admin Hydrocodone Bitart/Acetaminophen 1 tab 08/18/23 08:34 08/18/23 22:33 Hydrocodone/Acetaminophen (*Crx) 5-325 Mg Tablet PO 1 tab Q4H PRN Administration
[2023-08-19 20:00] VITALS: O2SAT 93
[2023-08-19 21:51] VITALS: BP 151/80; PULSE 80; RESP 20; TEMP 36.9; O2SAT 90
[2023-08-20] MEDS: CENTRAL LINE FLUSH 10 ML IV PUSH ×4 (00:52→21:39)
[2023-08-20] MEDS: ONDANSETRON INJ 4 MG/2 ML VIAL IV PUSH ×5 (00:55→21:43)
[2023-08-20] MEDS: SODIUM CHLORIDE 0.9% INJ 10 ML ×2 (01:40→07:40)
[2023-08-20] MEDS: PROMETHAZINE HCL 25 MG/ML AMPUL 12.5 MG IV PUSH ×3 (01:40→11:54)
[2023-08-20] MEDS: HYDROmorphone HCL INJ (*CRX) 1 MG/ML SYR IV PUSH ×3 (03:45→14:47)
[2023-08-20 05:00] VITALS: BP 116/74; PULSE 92; RESP 20; TEMP 37; O2SAT 92
[2023-08-20 07:05] LABS: Anion Gap 5 mmol/L (8-16); Blood Urea Nitrogen 13 mg/dL (7-17); Calcium 8.6 mg/dL (8.4-10.2); Carbon Dioxide 30 mmol/L (22-30); Chloride 101 mmol/L (98-107); Estimated CRCL calculation 75 ml/min; Estimated Glomerular Filt Rate > 60; Glucose 116 mg/dL (65-110); Magnesium 1.9 mg/dL (1.6-2.3); Phosphorus 3.5 mg/dL (2.5-4.5); Potassium 3.5 mmol/L (3.4-5.0); Sodium 136 mmol/L (137-145)
[2023-08-20] MEDS: PANTOPRAZOLE SODIUM IV 40 MG VIAL IV PUSH (08:56)
[2023-08-20] MEDS: ENOXAPARIN 40 MG/0.4 ML SYRINGE SUB-Q (08:57)
[2023-08-20 09:00] VITALS: O2SAT 92
--- NOTE | 2023-08-20 11:12 | PM.PNGS ---
Progress Note: A&P Assessment and Plan (1) Small bowel obstruction: Code(s): K56.609 - Unspecified intestinal obstruction, unspecified as to partial versus complete obstruction Status: Acute Assessment and Plan: Will try Maalox today. Get Obstructive series today. Possibly place NG if bowel more dilated. (2) Postoperative ileus: Code(s): K91.89 - Other postprocedural complications and disorders of digestive system; K56.7 - Ileus, unspecified Status: Acute Assessment and Plan: Bowels moving but still nauseated. Will try Reglan if obstructive series looks ok. (3) Pneumothorax: Qualifiers: Pneumothorax type: other pneumothorax Qualified Code(s): J93.83 - Other pneumothorax Code(s): J93.9 - Pneumothorax, unspecified Status: Acute Assessment and Plan: Persistent pneumothorax, but no significant change other than pleural effusion component too. Continue to monitor. Subjective Subjective Date/Time Seen: 08/20/23 11:12 Interval history: Still having some nausea, vomiting, and bloating. Multiple BM's overnight and this morning. Still no appetite due to reflux and nausea. Up ambulating. Exam GI: Inspection: incision (intact with tariq) GI Palp: Yes Soft to palpation and Yes Tenderness to palpation present (GI) (Upper abdominal pain, mild distention) Percussion: Yes other (minimal tympany to upper abdomen only) Auscultation: normal bowel sounds Objective Data Vital Signs Vital Signs: Vital Signs - 24 hr 08/19/23 21:51 08/19/23 20:00 08/20/23 05:00 Temperature 36.9 C 37.0 C Pulse Rate 80 92 Respiratory Rate 20 20 Blood Pressure 151/80 H 116/74 Pulse Oximetry 90 93 92 Oxygen Delivery Nasal Cannula Oxygen Flow Rate 2 08/20/23 09:00 Temperature Pulse Rate Respiratory Rate Blood Pressure Pulse Oximetry 92 Oxygen Delivery Nasal Cannula Oxygen Flow Rate 2 Intake/Output Intake/Output: Intake & Output 08/17/23 08/18/23 08/19/23 08/20/23 23:59 23:59 23:59 23:59 Intake Total 2495 2120 1250 200 Output Total 100 1000 300 Balance 2395 2120 250 -100 Meds/Results Medications: Active Medications Generic Name Dose Route Start Last Admin Trade Name Freq PRN Reason Stop Dose Admin Hydrocodone Bitart/Acetaminophen 1 tab 08/18/23 08:34 08/18/23 22:33 Hydrocodone/Acetaminophen (*Crx) 5-325 Mg Tablet PO 1 tab Q4H PRN Administration Pain Rated 4-6 Al Hydrox/Mg Hydrox/Simethicone 30 ml 08/20/23 11:11 Mag Hydrox/Al Hydrox/Simeth 30 Ml Udc PO 08/20/23 11:12 ONCE ONE Al Hydrox/Mg Hydrox/Simethicone 30 ml 08/20/23 11:11 Mag Hydrox/Al Hydrox/Simeth 30 Ml Udc PO Q6H PRN Indigestion Albuterol 2 puff 08/14/23 15:29 Albuterol Sulfate (*Sp) Aerosol 1 Puff INHALATION Q4H PRN Shortness Of Breath Or Wheezing Enoxaparin Sodium 40 mg 08/13/23 09:00 08/20/23 08:57 Enoxaparin 40 Mg/0.4 Ml Syringe SUB-Q 40 mg DAILY ARELI Administration Fluticasone/Umeclidinium/Vilanterol 1 puff 08/15/23 09:00 08/20/23 08:20 Fluticasone/Umeclidin/Vilanter 100-62.5-25 Mcg Ellipta INHALATION Not Given DAILY ARELI Hydromorphone HCl 0.5 mg 08/12/23 18:45 08/19/23 05:17 Hydromorphone Hcl Inj (*Crx) 1 Mg/Ml Syr IV PUSH 0.5 mg Q2H PRN Administration Pain Rated 4-6 Hydromorphone HCl 1 mg 08/12/23 18:45 08/20/23 08:57 Hydromorphone Hcl Inj (*Crx) 1 Mg/Ml Syr IV PUSH 1 mg Q2H PRN Administration Pain Rated 7-10 Dextrose 1,000 mls @ 50 mls/hr 08/13/23 08:37 Dextrose 10% IV CONT .Q20H PRN if PN is interrupted Potassium Chloride/Dextrose/Sod Cl 1,000 mls @ 100 mls/hr 08/19/23 11:45 08/20/23 00:00 Kcl 20 Meq/D5/0.45% Sod Chl IV CONT 100 mls/hr .Q10H ARELI Administration Ibuprofen 600 mg 08/18/23 08:34 Ibuprofen 600 Mg Tablet PO Q6H PRN Pain Rated 1-3 Ondansetron HCl 4 mg 08/12/23 18:45 08/20/23 08:58 Ondanset
[2023-08-20] MEDS: KCL 20 MEQ/D5/0.45% SOD CHL 1,000 ML 100 ML IV CONT ×3 (11:50→21:38)
[2023-08-20] MEDS: MAG HYDROX/AL HYDROX/SIMETH 30 ML UDC PO (11:55)
--- NOTE | 2023-08-20 13:02 | PM.IMPN ---
Progress Note: A&P Assessment and Plan (1) Postoperative ileus: Code(s): K91.89 - Other postprocedural complications and disorders of digestive system; K56.7 - Ileus, unspecified Status: Acute (2) Pneumothorax: Qualifiers: Pneumothorax type: other pneumothorax Qualified Code(s): J93.83 - Other pneumothorax Code(s): J93.9 - Pneumothorax, unspecified Status: Acute Plan this note serves as progress note for 08/20. continue to monitor pneumothorax , pt does report she uses 2L NC at home intermittenly, she certainly has reason for continued use related to large abdominal surgery passing flatus, if developing further signs of ileus NG tube decompression would be appropriate full code [email or web address] Subjective Date/time seen: 08/20/23 13:02 Interval history: naoe. patient passing flatus. nausea but no vomiting Review of Systems Review of Systems: All systems reviewed & are unremarkable except as noted in HPI and below Exam Const: General: comfortable and no acute distress Eyes: Pupils: Equal, round and reactive pupils present Resp: Effort & Inspection: normal respiratory effort Auscultation: clear to auscultation bilaterally Cardio: Rate: regular rate Rhythm: regular rhythm GI: GI Palp: No Tenderness to palpation present (GI) Extrem: General: no edema Objective Data Vital Signs Vital Signs: Vital Signs - 24 hr 08/19/23 21:51 08/19/23 20:00 08/20/23 05:00 Temperature 98.5 F 98.6 F Pulse Rate 80 92 Respiratory Rate 20 20 Blood Pressure 151/80 H 116/74 Pulse Oximetry 90 93 92 Oxygen Delivery Nasal Cannula Oxygen Flow Rate 2 08/20/23 09:00 Temperature Pulse Rate Respiratory Rate Blood Pressure Pulse Oximetry 92 Oxygen Delivery Nasal Cannula Oxygen Flow Rate 2 Intake/Output Intake/Output: Intake & Output 08/17/23 08/18/23 08/19/23 08/20/23 23:59 23:59 23:59 23:59 Intake Total 2495 2120 1250 1200 Output Total 100 1000 300 Balance 2395 2120 250 900 Meds/Results Medications: Active Medications Generic Name Dose Route Start Last Admin Trade Name Freq PRN Reason Stop Dose Admin Hydrocodone Bitart/Acetaminophen 1 tab 08/18/23 08:34 08/18/23 22:33 Hydrocodone/Acetaminophen (*Crx) 5-325 Mg Tablet PO 1 tab Q4H PRN Administration Pain Rated 4-6 Al Hydrox/Mg Hydrox/Simethicone 30 ml 08/20/23 11:11 Mag Hydrox/Al Hydrox/Simeth 30 Ml Udc PO Q6H PRN Indigestion Albuterol 2 puff 08/14/23 15:29 Albuterol Sulfate (*Sp) Aerosol 1 Puff INHALATION Q4H PRN Shortness Of Breath Or Wheezing Enoxaparin Sodium 40 mg 08/13/23 09:00 08/20/23 08:57 Enoxaparin 40 Mg/0.4 Ml Syringe SUB-Q 40 mg DAILY ARELI Administration Fluticasone/Umeclidinium/Vilanterol 1 puff 08/15/23 09:00 08/20/23 08:20 Fluticasone/Umeclidin/Vilanter 100-62.5-25 Mcg Ellipta INHALATION Not Given DAILY ARELI Hydromorphone HCl 0.5 mg 08/12/23 18:45 08/19/23 05:17 Hydromorphone Hcl Inj (*Crx) 1 Mg/Ml Syr IV PUSH 0.5 mg Q2H PRN Administration Pain Rated 4-6 Hydromorphone HCl 1 mg 08/12/23 18:45 08/20/23 08:57 Hydromorphone Hcl Inj (*Crx) 1 Mg/Ml Syr IV PUSH 1 mg Q2H PRN Administration Pain Rated 7-10 Dextrose 1,000 mls @ 50 mls/hr 08/13/23 08:37 Dextrose 10% IV CONT .Q20H PRN if PN is interrupted Potassium Chloride/Dextrose/Sod Cl 1,000 mls @ 100 mls/hr 08/19/23 11:45 08/20/23 11:50 Kcl 20 Meq/D5/0.45% Sod Chl IV CONT 100 mls/hr .Q10H ARELI Administration Ibuprofen 600 mg 08/18/23 08:34 Ibuprofen 600 Mg Tablet PO Q6H PRN Pain Rated 1-3 Ondansetron HCl 4 mg 08/12/23 18:45 08/20/23 08:58 Ondansetron Inj 4 Mg/2 Ml Vial IV PUSH 4 mg Q4H PRN Administration Nausea And Vomiting Pantoprazole Sodium 40 mg 08/11/23 09:00 08/20/23 08:56 Pantoprazole Sodium Iv 40 Mg Vial IV PUSH 40 mg QAM ARELI Administration Promethazine HCl
[2023-08-20 14:00] VITALS: BP 148/69; PULSE 81; RESP 16; TEMP 35.8; O2SAT 92
[2023-08-20] MEDS: METOCLOPRAMIDE HCL INJ 10 MG/2 ML VIAL IV PUSH ×2 (17:58→23:17)
[2023-08-20 20:00] VITALS: O2SAT 95
[2023-08-20 20:31] VITALS: BP 148/75; PULSE 76; RESP 18; TEMP 36.4; O2SAT 95
[2023-08-20] MEDS: HYDROmorphone HCL INJ (*CRX) 1 MG/ML SYR 0.5 MG IV PUSH (21:40)
[2023-08-21] MEDS: HYDROmorphone HCL INJ (*CRX) 1 MG/ML SYR 0.5 MG IV PUSH ×2 (01:51→05:59)
[2023-08-21] MEDS: ONDANSETRON INJ 4 MG/2 ML VIAL IV PUSH ×4 (01:54→21:19)
[2023-08-21 05:09] VITALS: BP 147/72; PULSE 78; RESP 15; TEMP 36.6; O2SAT 95
[2023-08-21] MEDS: METOCLOPRAMIDE HCL INJ 10 MG/2 ML VIAL IV PUSH ×3 (05:58→17:05)
[2023-08-21] MEDS: CENTRAL LINE FLUSH 20 ML IV PUSH (05:59)
[2023-08-21] MEDS: CENTRAL LINE FLUSH 10 ML IV PUSH ×3 (05:59→21:25)
[2023-08-21 06:51] LABS: Basophils Absolute Auto 0.1 K/mm3 (0.0-0.1); Basophils Percent Auto 0.5 % (0.2-1.2); Eosinophils Absolute Auto 0.4 K/mm3 (0-0.3); Hematocrit 36.7 % (37.0-47.0); Hemoglobin 12.1 g/dL (12.0-15.0); Immature Granulocyte Absolute 0.15 K/mm3 (0.00-0.031); Immature Granulocyte Percent A 1.1 % (0-0.5); Lymphocytes Absolute Auto 2.73 K/mm3 (0.9-3.2); Lymphocytes Percent Auto 20.8 % (18.3-44.2); Mean Corpuscular Hemoglobin 30.9 pg (26-34); Mean Corpuscular Volume 93.9 fl (80-100); Mean Platelet Volume 9.4 fl (7.4-10.4); Monocytes Percent Auto 7.4 % (2.6-8.5); Neutrophils Absolute Auto 8.8 K/mm3 (1.3-6.7); Neutrophils Percent Auto 67.2 % (45.5-73.1); Platelet Count Result 457 k/mm3 (150-375); Red Blood Count 3.91 M/mm3 (4.2-5.4); Red Cell Distribution Width 13.4 % (11.5-14.5); White Blood Count 13.1 K/mm3 (4.5-10.0)
[2023-08-21 07:02] LABS: Alanine Aminotransferase 22 U/L (6-35); Albumin Level 3.6 g/dL (3.5-5.1); Alkaline Phosphatase 153 U/L (38-126); Anion Gap 5 mmol/L (8-16); Aspartate Amino Transferase 28 U/L (14-36); Bilirubin,Total 0.4 mg/dL (0.2-1.3); Blood Urea Nitrogen 12 mg/dL (7-17); Calcium 8.3 mg/dL (8.4-10.2); Carbon Dioxide 28 mmol/L (22-30); Chloride 100 mmol/L (98-107); Estimated CRCL calculation 75 ml/min; Estimated Glomerular Filt Rate > 60; Glucose 125 mg/dL (65-110); Potassium 3.6 mmol/L (3.4-5.0); Sodium 133 mmol/L (137-145)
[2023-08-21 08:00] VITALS: O2SAT 95
[2023-08-21] MEDS: ENOXAPARIN 40 MG/0.4 ML SYRINGE SUB-Q (09:33)
[2023-08-21] MEDS: PANTOPRAZOLE SODIUM IV 40 MG VIAL IV PUSH (09:33)
[2023-08-21] MEDS: HYDROmorphone HCL INJ (*CRX) 1 MG/ML SYR IV PUSH ×3 (09:36→21:19)
[2023-08-21] MEDS: MAG HYDROX/AL HYDROX/SIMETH 30 ML UDC PO (09:39)
[2023-08-21] MEDS: KCL 20 MEQ/D5/0.45% SOD CHL 1,000 ML 100 ML IV CONT ×2 (11:23→21:25)
--- NOTE | 2023-08-21 12:25 | PM.PNGS ---
Progress Note: A&P Assessment and Plan (1) Postoperative ileus: Code(s): K91.89 - Other postprocedural complications and disorders of digestive system; K56.7 - Ileus, unspecified Status: Acute Assessment and Plan: Bowels are moving but still nauseated. No vomiting since yesterday. Continue Reglan. Encouraged ambulating in the halls. Discussed with patient that we may need to consider replacing her NG tube if vomiting continues. May also need to consider restarting her TPN if her nausea persists and she is unable to even tolerate liquids. (2) Small bowel obstruction: Code(s): K56.609 - Unspecified intestinal obstruction, unspecified as to partial versus complete obstruction Status: Acute Assessment and Plan: Postop day 9 from ex lap, extensive adhesiolysis, SBR, appendectomy. Bowel function returned but still feeling nauseous. Continue clear liquids. WBC count up to 13.1 today, afebrile. Incision healing well. Repeat labs tomorrow. Encouraged getting up and walking the halls. (3) Pneumothorax: Qualifiers: Pneumothorax type: other pneumothorax Qualified Code(s): J93.83 - Other pneumothorax Code(s): J93.9 - Pneumothorax, unspecified Status: Acute Assessment and Plan: Remains stable. No complaints or acute issues on her baseline home O2. Plan I have discussed the patient's case and plan of care with Dr. Padron. Subjective Subjective Date/Time Seen: 08/21/23 12:25 Post Op day: 9 (Exploratory laparotomy, Extensive adhesiolysis, Small-bowel resection, Appendectomy) Patient reports: voiding w/o difficulty, flatus, diarrhea, nausea, vomiting (yesterday evening) and afebrile Interval history: This is a 62 year old woman who presented with a recurrent small bowel obstruction and history of multiple previous abdominal surgeries and small bowel obstructions. She was taken to the OR on 08/12/23 as mentioned above. She had an NG tube and TPN postop which has since been removed and TPN stopped earlier in the week. Chart reviewed. She is on clear liquids, but has refused all her trays for a couple of days. She is still having a significant amount of nausea and was vomiting the past few days. Last time she vomited was last night in the evening. She also complains of reflux this morning. She has had multiple episodes of diarrhea overnight and today. She has been avoiding walking in the halls because she is worried she will start vomiting. Review of Systems Review of Systems: All systems reviewed & are unremarkable except as noted in HPI and below Exam Const: General: awake; No acute distress Orientation/consciousness: patient oriented x3 GI: Inspection: non-distended GI Palp: Yes Soft to palpation, Yes Tenderness to palpation present (GI) (incisional ) and No Guarding due to palpation present (GI) Auscultation: normal bowel sounds Other: midline incision healing well with tariq intact, no erythema, scant amount of serous drainage at bottom of incision Extrem: General: no calf tenderness and no edema Objective Data Vital Signs Vital Signs: Vital Signs - 24 hr 08/20/23 14:00 08/20/23 20:31 08/20/23 20:00 Temperature 96.4 F L 97.6 F Pulse Rate 81 76 Respiratory Rate 16 18 Blood Pressure 148/69 H 148/75 H Pulse Oximetry 92 95 95 Oxygen Delivery Nasal Cannula Oxygen Flow Rate 2 08/21/23 05:09 08/21/23 08:00 Temperature 97.9 F Pulse Rate 78 Respiratory Rate 15 Blood Pressure 147/72 H Pulse Oximetry 95 95 Oxygen Delivery Nasal Cannula Oxygen Flow Rate 2 Intake/Output Intake/Output: Intake & Output 08/18/23 08/19/23 08/20/23 08/21/23 23:59 23:59 23:59 23:59 Intake Total 2120 1250 2200 1000 Output Total 1000 600 0 Balance 2120 250 1600 1000 Meds/Results Medications: Active Medications Generic Name Dose Route Start Last Admin Trade Name Freq PRN Reason Stop Dose Admin Hydrocodone Bitart/Acetaminophen 1 tab 08/18/23 08
--- NOTE | 2023-08-21 13:00 | PCCCNOTE ---
On 08/21/23, the student, [Emma Galvan], provided care and completed [facility] documentation on this patient. I have reviewed the student's documentation and agree with the findings.
[2023-08-21 14:00] VITALS: BP 151/72; PULSE 75; RESP 18; TEMP 36.9; O2SAT 96
--- NOTE | 2023-08-21 14:09 | PCNFU ---
Nutrition Follow-Up Complete: Inadequate oral intake related to altered GI function as evidenced by recent surgery, need for full parenteral nutrition Goal:Meet estimated protein energy needs Advance to PO intake as medically able Pt is not meeting goals. Pt current nutrition is Clear liquids. Nutrition recommendation: consider restarting previous TPN for nutrition support as po intake is not adequate Last recorded weight is 75.4 kg. Bowel Motility: +BM 08/18 Labs Reviewed: HCT:36.7, NA:133, Cr:0.6 Meds Noted: lovenox, zofran Skin: no skin issues noted Additional Notes: Pt remains on clear liquids. Minimal intake, c/o nausea and refused multiple trays due to fear of vomiting. TPN has been discontined sine 08/17, today is day 5. Recommend to restart TPN for nutrition support to meet nutritional needs. Monitoring plan of care, diet advancement, wt, labs Follow up in 3 days.
--- NOTE | 2023-08-21 18:54 | PM.IMPN ---
Progress Note: A&P Assessment and Plan (1) Postoperative ileus: Code(s): K91.89 - Other postprocedural complications and disorders of digestive system; K56.7 - Ileus, unspecified Status: Acute (2) Abdominal pain: Qualifiers: Abdominal location: generalized Qualified Code(s): R10.84 - Generalized abdominal pain Code(s): R10.9 - Unspecified abdominal pain Status: Acute (3) Small bowel obstruction: Code(s): K56.609 - Unspecified intestinal obstruction, unspecified as to partial versus complete obstruction Status: Acute (4) Pneumothorax: Qualifiers: Pneumothorax type: other pneumothorax Qualified Code(s): J93.83 - Other pneumothorax Code(s): J93.9 - Pneumothorax, unspecified Status: Acute Plan ileus mgmt per surgery. stable chronic o2 at 2L NC. repeat CXR in aim for serial monitoring of small pneumothorax full code lovenox Subjective Date/time seen: 08/21/23 18:54 Interval history: naoe. pt reports nausea, eating ice chips, she is making loose stools Review of Systems Review of Systems: All systems reviewed & are unremarkable except as noted in HPI and below Exam Const: General: comfortable and no acute distress Eyes: Pupils: Equal, round and reactive pupils present Neck: Neck: supple Resp: Effort & Inspection: normal respiratory effort Auscultation: clear to auscultation bilaterally Cardio: Rate: regular rate Rhythm: regular rhythm GI: Inspection: distended GI Palp: No Tenderness to palpation present (GI) Extrem: General: no edema Objective Data Vital Signs Vital Signs: Vital Signs - 24 hr 08/20/23 20:31 08/20/23 20:00 08/21/23 05:09 Temperature 97.6 F 97.9 F Pulse Rate 76 78 Respiratory Rate 18 15 Blood Pressure 148/75 H 147/72 H Pulse Oximetry 95 95 95 Oxygen Delivery Nasal Cannula Oxygen Flow Rate 2 08/21/23 08:00 08/21/23 14:00 Temperature 98.4 F Pulse Rate 75 Respiratory Rate 18 Blood Pressure 151/72 H Pulse Oximetry 95 96 Oxygen Delivery Nasal Cannula Oxygen Flow Rate 2 Intake/Output Intake/Output: Intake & Output 08/18/23 08/19/23 08/20/23 08/21/23 23:59 23:59 23:59 23:59 Intake Total 2120 1250 2200 1000 Output Total 1000 600 0 Balance 2120 250 1600 1000 Meds/Results Medications: Active Medications Generic Name Dose Route Start Last Admin Trade Name Freq PRN Reason Stop Dose Admin Hydrocodone Bitart/Acetaminophen 1 tab 08/18/23 08:34 08/18/23 22:33 Hydrocodone/Acetaminophen (*Crx) 5-325 Mg Tablet PO 1 tab Q4H PRN Administration Pain Rated 4-6 Al Hydrox/Mg Hydrox/Simethicone 30 ml 08/20/23 11:11 08/21/23 09:39 Mag Hydrox/Al Hydrox/Simeth 30 Ml Udc PO 30 ml Q6H PRN Administration Indigestion Albuterol 2 puff 08/14/23 15:29 Albuterol Sulfate (*Sp) Aerosol 1 Puff INHALATION Q4H PRN Shortness Of Breath Or Wheezing Enoxaparin Sodium 40 mg 08/13/23 09:00 08/21/23 09:33 Enoxaparin 40 Mg/0.4 Ml Syringe SUB-Q 40 mg DAILY ARELI Administration Fluticasone/Umeclidinium/Vilanterol 1 puff 08/15/23 09:00 08/20/23 08:20 Fluticasone/Umeclidin/Vilanter 100-62.5-25 Mcg Ellipta INHALATION Not Given DAILY ARELI Hydromorphone HCl 0.5 mg 08/12/23 18:45 08/21/23 05:59 Hydromorphone Hcl Inj (*Crx) 1 Mg/Ml Syr IV PUSH 0.5 mg Q2H PRN Administration Pain Rated 4-6 Hydromorphone HCl 1 mg 08/12/23 18:45 08/21/23 17:05 Hydromorphone Hcl Inj (*Crx) 1 Mg/Ml Syr IV PUSH 1 mg Q2H PRN Administration Pain Rated 7-10 Dextrose 1,000 mls @ 50 mls/hr 08/13/23 08:37 Dextrose 10% IV CONT .Q20H PRN if PN is interrupted Potassium Chloride/Dextrose/Sod Cl 1,000 mls @ 100 mls/hr 08/19/23 11:45 08/21/23 13:50 Kcl 20 Meq/D5/0.45% Sod Chl IV CONT Not Given .Q10H ARELI Ibuprofen 600 mg 08/18/23 08:34 Ibuprofen 600 Mg Tablet PO Q6H PRN Pain Rated 1-3 Metoclop
[2023-08-21 20:00] VITALS: O2SAT 96
[2023-08-21] MEDS: CALCIUM CARBONATE (TUMS) 500 MG (200 MG ELEMENTAL) 400 MG PO (21:19)
[2023-08-21 22:00] VITALS: BP 162/74; PULSE 83; RESP 18; TEMP 36.5; O2SAT 90
[2023-08-22] MEDS: METOCLOPRAMIDE HCL INJ 10 MG/2 ML VIAL IV PUSH (00:32)
[2023-08-22] MEDS: HYDROmorphone HCL INJ (*CRX) 1 MG/ML SYR IV PUSH ×3 (00:41→11:55)
[2023-08-22] MEDS: ONDANSETRON INJ 4 MG/2 ML VIAL IV PUSH ×2 (03:54→11:55)
[2023-08-22 05:57] VITALS: BP 162/72; PULSE 78; RESP 20; TEMP 36.6; O2SAT 90
[2023-08-22] MEDS: KCL 20 MEQ/D5/0.45% SOD CHL 1,000 ML 100 ML IV CONT ×2 (06:39→17:23)
[2023-08-22] MEDS: CALCIUM CARBONATE (TUMS) 500 MG (200 MG ELEMENTAL) 400 MG PO (06:45)
[2023-08-22] MEDS: CENTRAL LINE FLUSH 10 ML IV PUSH ×3 (06:51→20:47)
[2023-08-22] MEDS: MAG HYDROX/AL HYDROX/SIMETH 30 ML UDC PO (06:51)
[2023-08-22 07:20] LABS: Hematocrit 35.8 % (37.0-47.0); Hemoglobin 11.6 g/dL (12.0-15.0); Mean Corpuscular HGB Conc 32.4 g/dl (32-36); Mean Corpuscular Hemoglobin 30.3 pg (26-34); Mean Corpuscular Volume 93.5 fl (80-100); Mean Platelet Volume 9.6 fl (7.4-10.4); Platelet Count Result 466 k/mm3 (150-375); Red Blood Count 3.83 M/mm3 (4.2-5.4); Red Cell Distribution Width 13.2 % (11.5-14.5); White Blood Count 13.9 K/mm3 (4.5-10.0)
[2023-08-22 07:30] LABS: Anion Gap 5 mmol/L (8-16); Blood Urea Nitrogen 9 mg/dL (7-17); Calcium 8.4 mg/dL (8.4-10.2); Carbon Dioxide 29 mmol/L (22-30); Chloride 97 mmol/L (98-107); Estimated CRCL calculation 88 ml/min; Estimated Glomerular Filt Rate > 60; Glucose 126 mg/dL (65-110); Potassium 3.3 mmol/L (3.4-5.0); Sodium 131 mmol/L (137-145)
[2023-08-22 08:00] VITALS: O2SAT 90
[2023-08-22] MEDS: FLUTICASONE/UMECLIDIN/VILANTER 100-62.5-25 MCG ELLIPTA 1 PUFF INHALATION (08:15)
[2023-08-22] MEDS: PANTOPRAZOLE SODIUM IV 40 MG VIAL IV PUSH (09:15)
[2023-08-22] MEDS: ENOXAPARIN 40 MG/0.4 ML SYRINGE SUB-Q (09:15)
[2023-08-22 09:48] LABS: Glucose Point of Care 101 mg/dl (65-105)
[2023-08-22] MEDS: KCL 20 MEQ/SW 100 ML 100 ML 50 MEQ IVPB (11:55)
[2023-08-22] MEDS: KCL 40 MEQ/WATER 100 ML 100 ML 25 ML IVPB (13:52)
[2023-08-22 14:00] VITALS: BP 144/82; PULSE 73; RESP 16; TEMP 36.9; O2SAT 94
[2023-08-22] MEDS: IBUPROFEN IV 400 MG in SODIUM CHLORIDE 0.9% IV 100 ML 208 MG IVPB (15:22)
--- NOTE | 2023-08-22 17:22 | PM.IMPN ---
Progress Note: A&P Assessment and Plan (1) Postoperative ileus: Code(s): K91.89 - Other postprocedural complications and disorders of digestive system; K56.7 - Ileus, unspecified Status: Acute (2) Pneumothorax: Qualifiers: Pneumothorax type: other pneumothorax Qualified Code(s): J93.83 - Other pneumothorax Code(s): J93.9 - Pneumothorax, unspecified Status: Acute (3) Small bowel obstruction: Code(s): K56.609 - Unspecified intestinal obstruction, unspecified as to partial versus complete obstruction Status: Acute (4) GERD without esophagitis: Code(s): K21.9 - Gastro-esophageal reflux disease without esophagitis Status: Acute Plan 62F w/ PMH recurrent SOB and adhesions, chronic pain, MARÍA, HLD, depression with anxiety, COPD,? presented with abdominal pain, nausea and vomiting and loose stools. On 08/13 she underwent ex lap w/ lysis of small bowel adhesions w/ prophylactic appendectomy and ileal resection with side to side anastomosis. She was started on TPN which has since been pr'ed. Her diet was advanced to clear liquids but she did not tolerate. 08/22 NG tube replaced and she has had good relief and copious NG output. Mgmt per surgery. IV ibuprofen q6hr started on 08/22. Pt is on 2LNC. she reports she was using this intermittently at home for COPD. she otherwise has no respiratory distress. somewhere along the way she developed a small right side pneumothorax. This was seen on CXR done post PICC line insertion. Could have been due to PICC line insertion, barotrauma 2/2 surgery, or even 2/2 underlying COPD. It has been stable since. Cont serial monitoring and advance to surgical intervention if her respiratory status worsens. Hypokalemia. Cont IVF w/ KCL Protonix for GI prophylaxis. Lovenox for DVT prophylaxis. Full Code Subjective Date/time seen: 08/22/23 17:22 Interval history: NG tube replaced due to n/v. the patient has had immense relief. she does not have pain currently either Review of Systems Review of Systems: All systems reviewed & are unremarkable except as noted in HPI and below (subjective) Exam Const: General: comfortable and no acute distress Eyes: Pupils: Equal, round and reactive pupils present Neck: Neck: supple Resp: Effort & Inspection: normal respiratory effort Auscultation: clear to auscultation bilaterally, no crackles, no rales and no rhonchi Cardio: Rate: regular rate Rhythm: regular rhythm Heart sounds: no gallops, no murmurs and no rubs GI: Inspection: non-distended GI Palp: Yes Soft to palpation and No Tenderness to palpation present (GI) Extrem: General: no edema Objective Data Vital Signs Vital Signs: Vital Signs - 24 hr 08/21/23 20:00 08/21/23 22:00 08/22/23 05:57 Temperature 97.7 F 97.9 F Pulse Rate 83 78 Respiratory Rate 18 20 Blood Pressure 162/74 H 162/72 H Pulse Oximetry 96 90 90 Oxygen Delivery Nasal Cannula Oxygen Flow Rate 2 08/22/23 08:00 Temperature Pulse Rate Respiratory Rate Blood Pressure Pulse Oximetry 90 Oxygen Delivery Nasal Cannula Oxygen Flow Rate 2 Intake/Output Intake/Output: Intake & Output 08/19/23 08/20/23 08/21/23 08/22/23 23:59 23:59 23:59 23:59 Intake Total 1250 2200 2000 1250 Output Total 1000 600 0 1600 Balance 250 1600 2000 -350 Meds/Results Medications: Active Medications Generic Name Dose Route Start Last Admin Trade Name Freq PRN Reason Stop Dose Admin Hydrocodone Bitart/Acetaminophen 1 tab 08/18/23 08:34 08/18/23 22:33 Hydrocodone/Acetaminophen (*Crx) 5-325 Mg Tablet PO 1 tab Q4H PRN Administration Pain Rated 4-6 Al Hydrox/Mg Hydrox/Simethicone 30 ml 08/20/23 11:11 08/22/23 06:51 Mag Hydrox/Al Hydrox/Simeth 30 Ml Udc PO 30 ml Q6H PRN Administration Indigestion Albuterol 2 puff 08/14/23 15:29 Albuterol Sulfate (*Sp) Aerosol 1 Puff INHALATION Q4H PRN Shortness Of Breath Or Whee
--- NOTE | 2023-08-22 18:05 | PM.PNGS ---
Progress Note: A&P Assessment and Plan (1) Small bowel obstruction: Code(s): K56.609 - Unspecified intestinal obstruction, unspecified as to partial versus complete obstruction Status: Acute Assessment and Plan: Patient had recurrent small-bowel obstructions which will resolve but would recur in short intervals. She underwent a laparotomy with extensive small bowel adhesiolysis by Dr. Madsen. She initially recovered with resolution of her ileus and a diet was advanced. However it appears that she has had recurrent ileus. She has hypokalemia which was treated with boluses of potassium chloride today. Nasogastric tube was replaced with compression of her stomach which made her nausea vomiting much better. Will leave the nasogastric tube suction this evening. Repeat her labs tomorrow. If she remains NPO for more than other day then we may need to restart her TPN. Started her on some scheduled ibuprofen IV instead of giving her p.r.n. Dilaudid. Continue supportive management. Subjective Subjective Date/Time Seen: 08/22/23 18:05 Interval history: The patient had multiple episodes of nausea vomiting this morning. She did have a bowel movement last evening though. A passing flatus. White blood cell count was actually stable at 13,900 but her potassium was low at 3.3. Nasogastric tube was replaced today and initial output of approximately1.5L of this appearing fluid. She felt much better after nasogastric tube placement. This evening she feels better and is not complaining about having a nasogastric tube in since since it caused her nausea to go away. Exam GI: Other: Abdomen is soft and nondistended now. Some hypoactive bowel sounds are noted. Midline incision is healing well without any redness or drainage. Objective Data Vital Signs Vital Signs: Vital Signs - 24 hr 08/21/23 20:00 08/21/23 22:00 08/22/23 05:57 Temperature 36.5 C 36.6 C Pulse Rate 83 78 Respiratory Rate 18 20 Blood Pressure 162/74 H 162/72 H Pulse Oximetry 96 90 90 Oxygen Delivery Nasal Cannula Oxygen Flow Rate 2 08/22/23 08:00 Temperature Pulse Rate Respiratory Rate Blood Pressure Pulse Oximetry 90 Oxygen Delivery Nasal Cannula Oxygen Flow Rate 2 Intake/Output Intake/Output: Intake & Output 08/19/23 08/20/23 08/21/23 08/22/23 23:59 23:59 23:59 23:59 Intake Total 1250 2200 2000 2354 Output Total 1000 600 0 2650 Balance 250 1600 1999 - Meds/Results Medications: Active Medications Generic Name Dose Route Start Last Admin Trade Name Freq PRN Reason Stop Dose Admin Hydrocodone Bitart/Acetaminophen 1 tab 08/18/23 08:34 08/18/23 22:33 Hydrocodone/Acetaminophen (*Crx) 5-325 Mg Tablet PO 1 tab Q4H PRN Administration Pain Rated 4-6 Al Hydrox/Mg Hydrox/Simethicone 30 ml 08/20/23 11:11 08/22/23 06:51 Mag Hydrox/Al Hydrox/Simeth 30 Ml Udc PO 30 ml Q6H PRN Administration Indigestion Albuterol 2 puff 08/14/23 15:29 Albuterol Sulfate (*Sp) Aerosol 1 Puff INHALATION Q4H PRN Shortness Of Breath Or Wheezing Calcium Carbonate 400 mg 08/21/23 21:03 08/22/23 06:45 Calcium Carbonate (Tums) 500 Mg (200 Mg Elemental) PO 400 mg Q6H PRN Administration Indigestion, acid reflux Enoxaparin Sodium 40 mg 08/13/23 09:00 08/22/23 09:15 Enoxaparin 40 Mg/0.4 Ml Syringe SUB-Q 40 mg DAILY ARELI Administration Fluticasone/Umeclidinium/Vilanterol 1 puff 08/15/23 09:00 08/22/23 08:15 Fluticasone/Umeclidin/Vilanter 100-62.5-25 Mcg Ellipta INHALATION 1 puff DAILY ARELI Administration Hydromorphone HCl 0.5 mg 08/22/23 13:48 Hydromorphone Hcl Inj (*Crx) 1 Mg/Ml Syr IV PUSH Q3HR PRN Pain Rated 7-10 Dextrose 1,000 mls @ 50 mls/hr 08/13/23 08:37 Dextrose 10% IV CONT .Q20H PRN if PN is interrupted Potassium Chloride/Dextrose/Sod Cl 1,000 mls @ 100 mls/hr 08/19/23 11:45 08/22/23 17:23 Kcl 20 Meq/
[2023-08-22] MEDS: HYDROmorphone HCL INJ (*CRX) 1 MG/ML SYR 0.5 MG IV PUSH (18:41)
[2023-08-22] MEDS: IBUPROFEN IV 400 MG in SODIUM CHLORIDE 0.9% IV 100 ML 200 MG IVPB (20:45)
[2023-08-22 22:00] VITALS: BP 143/84; PULSE 69; RESP 14; TEMP 35.7; O2SAT 94
[2023-08-23] MEDS: METOCLOPRAMIDE HCL INJ 10 MG/2 ML VIAL IV PUSH ×3 (01:01→17:00)
[2023-08-23] MEDS: IBUPROFEN IV 400 MG in SODIUM CHLORIDE 0.9% IV 100 ML 200 MG IVPB ×4 (02:48→20:36)
[2023-08-23] MEDS: KCL 20 MEQ/D5/0.45% SOD CHL 1,000 ML 100 ML IV CONT ×2 (04:39→14:18)
[2023-08-23 05:21] VITALS: BP 129/79; PULSE 51; RESP 14; TEMP 35.8; O2SAT 94
[2023-08-23 06:34] LABS: Basophils Absolute Auto 0.1 K/mm3 (0.0-0.1); Basophils Percent Auto 0.5 % (0.2-1.2); Eosinophils Absolute Auto 0.6 K/mm3 (0-0.3); Eosinophils Percent Auto 5.1 % (0-4.4); Hematocrit 39.5 % (37.0-47.0); Hemoglobin 12.5 g/dL (12.0-15.0); Immature Granulocyte Absolute 0.11 K/mm3 (0.00-0.031); Lymphocytes Absolute Auto 1.67 K/mm3 (0.9-3.2); Lymphocytes Percent Auto 15.3 % (18.3-44.2); Mean Corpuscular HGB Conc 31.6 g/dl (32-36); Mean Corpuscular Hemoglobin 30.4 pg (26-34); Mean Corpuscular Volume 96.1 fl (80-100); Mean Platelet Volume 9.6 fl (7.4-10.4); Monocytes Absolute Auto 0.6 K/mm3 (0.1-0.6); Monocytes Percent Auto 5.4 % (2.6-8.5); Neutrophils Percent Auto 72.7 % (45.5-73.1); Platelet Count Result 511 k/mm3 (150-375); Red Blood Count 4.11 M/mm3 (4.2-5.4); Red Cell Distribution Width 13.3 % (11.5-14.5); White Blood Count 10.9 K/mm3 (4.5-10.0)
[2023-08-23] MEDS: CENTRAL LINE FLUSH 10 ML IV PUSH ×2 (06:53→14:19)
[2023-08-23 07:41] LABS: Alanine Aminotransferase 20 U/L (6-35); Albumin Level 3.5 g/dL (3.5-5.1); Alkaline Phosphatase 139 U/L (38-126); Anion Gap 6 mmol/L (8-16); Aspartate Amino Transferase 35 U/L (14-36); Bilirubin,Total 0.4 mg/dL (0.2-1.3); Blood Urea Nitrogen 6 mg/dL (7-17); Calcium 8.8 mg/dL (8.4-10.2); Carbon Dioxide 29 mmol/L (22-30); Chloride 102 mmol/L (98-107); Estimated CRCL calculation 75 ml/min; Estimated Glomerular Filt Rate > 60; Glucose 109 mg/dL (65-110); Potassium 4.1 mmol/L (3.4-5.0); Sodium 137 mmol/L (137-145)
[2023-08-23 07:42] LABS: Magnesium 2.1 mg/dL (1.6-2.3)
[2023-08-23 08:00] VITALS: O2SAT 94
[2023-08-23] MEDS: PANTOPRAZOLE SODIUM IV 40 MG VIAL IV PUSH (09:16)
[2023-08-23] MEDS: ENOXAPARIN 40 MG/0.4 ML SYRINGE SUB-Q (09:17)
[2023-08-23] MEDS: FLUTICASONE/UMECLIDIN/VILANTER 100-62.5-25 MCG ELLIPTA 1 PUFF INHALATION (10:57)
--- NOTE | 2023-08-23 11:13 | PM.PNGS ---
Progress Note: A&P Assessment and Plan (1) Postoperative ileus: Code(s): K91.89 - Other postprocedural complications and disorders of digestive system; K56.7 - Ileus, unspecified Status: Acute Assessment and Plan: Postoperative ileus seems to be resolving with repletion of her potassium levels and nasogastric tube decompression. She feels much better today. We will clamp the NG tube for 6hours and she does not have any nausea or increased abdominal pain and has no evidence of high residual in the stomach and will likely remove the NG tube later this afternoon and may be started on some clear liquids later this evening. (2) Small bowel obstruction: Code(s): K56.609 - Unspecified intestinal obstruction, unspecified as to partial versus complete obstruction Status: Acute Assessment and Plan: Resolved after extensive small bowel adhesiolysis. Subjective Subjective Date/Time Seen: 08/23/23 11:14 Interval history: Patient states she feels much better today. No nausea or abdominal pain. Had a bowel movement yesterday. NG output is further high but really not bilious appearing. She is very hungry today which she states is the 1st time she is hungry since her surgery. Potassium placement yesterday elevated her level to 4.1 today. Total albumin is at low level normal at 3.5. White blood count decreased from 13,000 down to 11,000 Exam GI: Inspection: normal to inspection Other: Abdomen is soft and nondistended. Bowel sounds are noted. Midline incision is healing well without redness or drainage. Objective Data Vital Signs Vital Signs: Vital Signs - 24 hr 08/22/23 14:00 08/22/23 22:00 08/23/23 05:21 Temperature 36.9 C 35.7 C L 35.8 C L Pulse Rate 73 69 51 L Respiratory Rate 16 14 14 Blood Pressure 144/82 H 143/84 H 129/79 Pulse Oximetry 94 94 94 Oxygen Delivery Oxygen Flow Rate 08/23/23 08:00 Temperature Pulse Rate Respiratory Rate Blood Pressure Pulse Oximetry 94 Oxygen Delivery Nasal Cannula Oxygen Flow Rate 2 Intake/Output Intake/Output: Intake & Output 08/20/23 08/21/23 08/22/23 08/23/23 23:59 23:59 23:59 23:59 Intake Total 2200 2000 2458 1208 Output Total 600 0 2650 1600 Balance 1600 2000 -192 -392 Meds/Results Medications: Active Medications Generic Name Dose Route Start Last Admin Trade Name Freq PRN Reason Stop Dose Admin Hydrocodone Bitart/Acetaminophen 1 tab 08/18/23 08:34 08/18/23 22:33 Hydrocodone/Acetaminophen (*Crx) 5-325 Mg Tablet PO 1 tab Q4H PRN Administration Pain Rated 4-6 Al Hydrox/Mg Hydrox/Simethicone 30 ml 08/20/23 11:11 08/22/23 06:51 Mag Hydrox/Al Hydrox/Simeth 30 Ml Udc PO 30 ml Q6H PRN Administration Indigestion Albuterol 2 puff 08/14/23 15:29 Albuterol Sulfate (*Sp) Aerosol 1 Puff INHALATION Q4H PRN Shortness Of Breath Or Wheezing Calcium Carbonate 400 mg 08/21/23 21:03 08/22/23 06:45 Calcium Carbonate (Tums) 500 Mg (200 Mg Elemental) PO 400 mg Q6H PRN Administration Indigestion, acid reflux Enoxaparin Sodium 40 mg 08/13/23 09:00 08/23/23 09:17 Enoxaparin 40 Mg/0.4 Ml Syringe SUB-Q 40 mg DAILY ARELI Administration Fluticasone/Umeclidinium/Vilanterol 1 puff 08/15/23 09:00 08/23/23 10:57 Fluticasone/Umeclidin/Vilanter 100-62.5-25 Mcg Ellipta INHALATION 1 puff DAILY ARELI Administration Hydromorphone HCl 0.5 mg 08/22/23 13:48 08/22/23 18:41 Hydromorphone Hcl Inj (*Crx) 1 Mg/Ml Syr IV PUSH 0.5 mg Q3HR PRN Administration Pain Rated 7-10 Dextrose 1,000 mls @ 50 mls/hr 08/13/23 08:37 Dextrose 10% IV CONT .Q20H PRN if PN is interrupted Potassium Chloride/Dextrose/Sod Cl 1,000 mls @ 100 mls/hr 08/19/23 11:45 08/23/23 04:39 Kcl 20 Meq/D5/0.45% Sod Chl IV CONT 100 mls/hr .Q10H ARELI Administration Ibuprofen 400 mg/ Sodium 104 mls @ 208 mls/hr 08/22/23 15:00 08/23/23 09:49 Chloride IVPB In
--- NOTE | 2023-08-23 13:12 | PM.IMPN ---
Progress Note: A&P Assessment and Plan (1) Postoperative ileus: Code(s): K91.89 - Other postprocedural complications and disorders of digestive system; K56.7 - Ileus, unspecified Status: Acute Assessment and Plan: Will continue with NG tube at suction. Improving. (2) Pneumothorax: Qualifiers: Pneumothorax type: other pneumothorax Qualified Code(s): J93.83 - Other pneumothorax Code(s): J93.9 - Pneumothorax, unspecified Status: Acute Assessment and Plan: Stable, continue current treatment (3) Small bowel obstruction: Code(s): K56.609 - Unspecified intestinal obstruction, unspecified as to partial versus complete obstruction Status: Acute Assessment and Plan: Patient is getting improving, plan is to continue with NG tube for now. (4) GERD without esophagitis: Code(s): K21.9 - Gastro-esophageal reflux disease without esophagitis Status: Acute Assessment and Plan: Stable, continue current treatment. Plan 62F w/ PMH recurrent SOB and adhesions, chronic pain, MARÍA, HLD, depression with anxiety, COPD,? presented with abdominal pain, nausea and vomiting and loose stools. On 08/13 she underwent ex lap w/ lysis of small bowel adhesions w/ prophylactic appendectomy and ileal resection with side to side anastomosis. She was started on TPN which has since been ny'ed. Her diet was advanced to clear liquids but she did not tolerate. 08/22 NG tube replaced and she has had good relief and copious NG output. Mgmt per surgery. IV ibuprofen q6hr started on 08/22. Pt is on 2LNC. she reports she was using this intermittently at home for COPD. she otherwise has no respiratory distress. somewhere along the way she developed a small right side pneumothorax. This was seen on CXR done post PICC line insertion. Could have been due to PICC line insertion, barotrauma 2/2 surgery, or even 2/2 underlying COPD. It has been stable since. Cont serial monitoring and advance to surgical intervention if her respiratory status worsens. Hypokalemia. Cont IVF w/ KCL Protonix for GI prophylaxis. Lovenox for DVT prophylaxis. Full Code 08/22/2023 Patient is feeling much better today. Plan is to continue NG tube for now. Monitor closely. Subjective Date/time seen: 08/23/23 13:12 Interval history: Patient was seen during the morning rounds today. Patient is NG tube with little drainage. Decreased abdominal pain. No shortness of breath or chest pain. Review of Systems Review of Systems: abdominal pain, cramps, poor per oral intake. All systems reviewed & are unremarkable except as noted in HPI and below (subjective) Constitutional: Constitutional: Denies chills, Denies fatigue, Denies fever(s), Denies malaise and Denies weakness Eyes: Eyes: Denies change in vision ENT: Denies dysphagia and Denies odynophagia Cardiovascular: Cardiovascular: Denies chest pain, Denies radiating jaw, neck or arm pain, Denies palpitations and Denies dyspnea Respiratory: Respiratory: Denies chest congestion, Denies cough and Denies dyspnea Gastrointestinal: Gastrointestinal: Reports abdominal pain, Denies melena, Denies hematochezia, Denies coffee ground emesis, Reports constipation, Denies dysphagia, Denies dyspepsia, Denies heartburn, Reports diarrhea, Reports loose stools, Denies odynophagia and Reports vomiting Genitourinary: Genitourinary: Reports no additional female genitourinary complaints and Reports as per HPI Musculoskeletal: Musculoskeletal: Denies arthralgias Integumentary/Breasts: Skin/Breast: Denies rash Neurologic: Denies focal weakness, Denies Sensory deficit (Neuro) and Denies weakness Psychiatric: Psychiatric: Reports no additional psychiatric complaints and Reports as per HPI Endocrine: Endocrine: Denies cold intolerance, Denies fatigue, Denies flushing, Denies heat intolerance, Denies polyphagia, Denies polydipsia, Denies polyuria and Denies palpitations
[2023-08-23 14:00] VITALS: BP 114/74; PULSE 77; RESP 15; TEMP 36.1; O2SAT 94
--- NOTE | 2023-08-23 17:57 | PC.NURSE ---
Patient stated she does not want NG tube removed tonight per Dr. Padron's telephone orders and would like to stay hooked up overnight to ensure no more complications arise from removing the NG tube too early. NG tube left in to low continuous suction.
[2023-08-23 21:35] VITALS: BP 120/68; PULSE 51; RESP 20; TEMP 36.1; O2SAT 95
[2023-08-24] VITALS (11 sets, daily range): BP systolic 117–145; BP diastolic 62–85; PULSE 52–90; RESP 16–18; TEMP 35.9–36.8; O2SAT 83–97
[2023-08-24] MEDS: METOCLOPRAMIDE HCL INJ 10 MG/2 ML VIAL IV PUSH ×2 (00:38→06:12)
[2023-08-24] MEDS: KCL 20 MEQ/D5/0.45% SOD CHL 1,000 ML 100 ML IV CONT ×2 (00:42→11:58)
[2023-08-24] MEDS: CENTRAL LINE FLUSH 10 ML IV PUSH ×4 (02:29→22:27)
[2023-08-24] MEDS: IBUPROFEN IV 400 MG in SODIUM CHLORIDE 0.9% IV 100 ML 200 MG IVPB ×2 (02:59→09:45)
[2023-08-24] MEDS: ENOXAPARIN 40 MG/0.4 ML SYRINGE SUB-Q (09:44)
[2023-08-24] MEDS: PANTOPRAZOLE SODIUM IV 40 MG VIAL IV PUSH (09:45)
--- NOTE | 2023-08-24 10:47 | WPDPN ---
Progress Note: A&P Assessment and Plan (1) Small bowel obstruction: Code(s): K56.609 - Unspecified intestinal obstruction, unspecified as to partial versus complete obstruction Status: Acute Assessment and Plan: Small-bowel obstruction resolved after her laparotomy and extensive abdominal adhesiolysis by Dr. Madsen. (2) Postoperative ileus: Code(s): K91.89 - Other postprocedural complications and disorders of digestive system; K56.7 - Ileus, unspecified Status: Acute Assessment and Plan: Postoperative ileus is not resolved. Nasogastric tube will be removed this morning will start her on clear liquids and advanced to full liquids today as tolerated. If she gets to full liquids later today then hopefully tomorrow she can be given some solid food and maybe discharge home tomorrow. Obstructive series this morning showed no dilated small bowel air-fluid levels. Subjective Date/time seen: 08/24/23 10:47 Interval history: Patient feels good today nasogastric tube was clamped yesterday for 6hours and she tolerated that well. However before removing NG tube she had a very large residual and nasogastric tube was left in place. Overnight she did have continued output over L but she has been drinking quite a bit of ice chips. The output from the nasogastric tube is nonbilious. He has been walking the hallways. Pain is minimal in her incision. Her obstructive series today shows no dilated loops of small bowel and a nonobstructive bowel pattern. Exam GI: Other: Abdomen is soft and nondistended. Midline incision is healing well without any redness or drainage. Bowel sounds are noted. Objective Data Vital Signs Vital Signs: Vital Signs - 24 hr 08/23/23 14:00 08/23/23 21:35 08/24/23 06:00 Temperature 36.1 C L 36.1 C L 35.9 C L Pulse Rate 77 51 L 55 L Respiratory Rate 15 20 16 Blood Pressure 114/74 120/68 137/66 Pulse Oximetry 94 95 95 Intake/Output Intake/Output: Intake & Output 08/21/23 08/22/23 08/23/23 08/24/23 23:59 23:59 23:59 23:59 Intake Total 1999 8454 2006 1104 Output Total 4520 2900 450 Balance 1999 654 Meds/Results Medications: Active Medications Generic Name Dose Route Start Last Admin Trade Name Freq PRN Reason Stop Dose Admin Hydrocodone Bitart/Acetaminophen 1 tab 08/18/23 08:34 08/18/23 22:33 Hydrocodone/Acetaminophen (*Crx) 5-325 Mg Tablet PO 1 tab Q4H PRN Administration Pain Rated 4-6 Al Hydrox/Mg Hydrox/Simethicone 30 ml 08/20/23 11:11 08/22/23 06:51 Mag Hydrox/Al Hydrox/Simeth 30 Ml Udc PO 30 ml Q6H PRN Administration Indigestion Albuterol 2 puff 08/14/23 15:29 Albuterol Sulfate (*Sp) Aerosol 1 Puff INHALATION Q4H PRN Shortness Of Breath Or Wheezing Calcium Carbonate 400 mg 08/21/23 21:03 08/22/23 06:45 Calcium Carbonate (Tums) 500 Mg (200 Mg Elemental) PO 400 mg Q6H PRN Administration Indigestion, acid reflux Enoxaparin Sodium 40 mg 08/13/23 09:00 08/24/23 09:44 Enoxaparin 40 Mg/0.4 Ml Syringe SUB-Q 40 mg DAILY ARELI Administration Fluticasone/Umeclidinium/Vilanterol 1 puff 08/15/23 09:00 08/23/23 10:57 Fluticasone/Umeclidin/Vilanter 100-62.5-25 Mcg Ellipta INHALATION 1 puff DAILY ARELI Administration Hydromorphone HCl 0.5 mg 08/22/23 13:48 08/22/23 18:41 Hydromorphone Hcl Inj (*Crx) 1 Mg/Ml Syr IV PUSH 0.5 mg Q3HR PRN Administration Pain Rated 7-10 Dextrose 1,000 mls @ 50 mls/hr 08/13/23 08:37 Dextrose 10% IV CONT .Q20H PRN if PN is interrupted Potassium Chloride/Dextrose/Sod Cl 1,000 mls @ 60 mls/hr 08/19/23 11:45 08/24/23 00:42 Kcl 20 Meq/D5/0.45% Sod Chl IV CONT 100 mls/hr .[id number] ARELI Administration Ibuprofen 400 mg/ Sodium 104 mls @ 208 mls/hr 08/24/23 10:47 Chloride IVPB Q6H PRN Pain Rated 4-6 Ondansetron HCl 4 mg 12/12/23 18:45 08/22/23 11:55 Ondansetron Inj 4 Mg/2 Ml Vial
[2023-08-24] MEDS: FLUTICASONE/UMECLIDIN/VILANTER 100-62.5-25 MCG ELLIPTA 1 PUFF INHALATION (10:57)
--- NOTE | 2023-08-24 12:33 | PM.IMPN ---
Progress Note: A&P Assessment and Plan (1) Small bowel obstruction: Code(s): K56.609 - Unspecified intestinal obstruction, unspecified as to partial versus complete obstruction Status: Acute Assessment and Plan: Patient presented with abdominal pain, nausea and vomiting and loose stools and found to have SBO. On 08/13 she underwent ex lap w/ lysis of small bowel adhesions w/ prophylactic appendectomy and ileal resection with side to side anastomosis. She was started on TPN which has now stopped. Her diet was advanced to clear liquids but she did not tolerate. 08/22 NG tube was replaced and she has had good relief and copious NG output. Monitor stool output. Pain well controlled. IV ibuprofen q6hr started on 08/22 for pain. Appreciate GenSurg input. (2) Postoperative ileus: Code(s): K91.89 - Other postprocedural complications and disorders of digestive system; K56.7 - Ileus, unspecified Status: Acute Assessment and Plan: Patient developed postop ileus after her surgery. As above NG tube was removed today. Clear liquid diet started. Plan to advance to full liquids later today if she tolerates this. Plan discharge if able to tolerate solid foods tomorrow (3) Pneumothorax: Qualifiers: Pneumothorax type: other pneumothorax Qualified Code(s): J93.83 - Other pneumothorax Code(s): J93.9 - Pneumothorax, unspecified Status: Acute Assessment and Plan: No CXR on admission but CXR on 08/13 after PICC line placement showing small right PTX. Could have been due to PICC line insertion, barotrauma 2/2 surgery, or even 2/2 underlying COPD. Could also be trapped lung. CXR on 08/22 showing stable right basilar PTX. Repeat CXR in am (4) Chronic respiratory failure with hypoxia: Code(s): J96.11 - Chronic respiratory failure with hypoxia Status: Chronic Assessment and Plan: Pt is on 2LNC at night, with exertion and as needed. Plan for home O2 evaluation priro to discharge (5) COPD (chronic obstructive pulmonary disease): Qualifiers: COPD type: unspecified COPD Qualified Code(s): J44.9 - Chronic obstructive pulmonary disease, unspecified Code(s): J44.9 - Chronic obstructive pulmonary disease, unspecified Status: Acute Assessment and Plan: Stable. No wheezing Continue inhalers (6) GERD without esophagitis: Code(s): K21.9 - Gastro-esophageal reflux disease without esophagitis Status: Acute Assessment and Plan: PPI Plan Lovenox for DVT prophylaxis. Full Code Subjective Date/time seen: 08/24/23 12:33 Interval history: 62yo female with ch resp failure, hx of SBO, LEVY and anemia here for abdominal pain and found to have SBO. Assuming care. Chart reviewed. NGT out this morning. Clear liquid diet started. No n/v. Abd pain tolerable. +flatus but no BMs. Wear o2 at sleep and with activity but not when out shopping Exam Narrative: AF 96.7 137/66 55 16 94% 2L Gen - NARD sitting at the side of the bed Chest -few basilar rhonchi otherwise clear. CV - RRR S1/S2 Abd -soft. Positive bowel sounds. Midline incision is well approximated and is clean, dry and intact Ext - No pedal edema Psych - Nml mood and affect Skin - Warm and dry Objective Data Vital Signs Vital Signs: Vital Signs - 24 hr 08/23/23 14:00 08/23/23 21:35 08/24/23 06:00 Temperature 97 F L 96.9 F L 96.7 F L Pulse Rate 77 51 L 55 L Respiratory Rate 15 20 16 Blood Pressure 114/74 120/68 137/66 Pulse Oximetry 94 95 95 Oxygen Delivery Oxygen Flow Rate 08/24/23 10:57 Temperature Pulse Rate Respiratory Rate Blood Pressure Pulse Oximetry 94 Oxygen Delivery Nasal Cannula Oxygen Flow Rate 2 Intake/Output Intake/Output: Intake & Output 08/21/23 08/22/23 08/23/23 08/24/23 23:59 23:59 23:59 23:59 Intake Total 1999 8137 2419 2201 Output Total 0 2650 2900 950 Balance 1999
--- NOTE | 2023-08-24 17:41 | HOMEO2EVAL ---
Evaluation was performed at [facility] Home Oxygen Evaluation RC: Home Oxygen (O2) Evaluation Start: 08/24/23 13:00 Freq: ONCE Status: Active Protocol: RPE Activity Type Activity Date Activity User E-sign Co-sign Detail Recorded Client Recorded Date Recorded By Document 08/24/23 14:30 [email or web address] 08/24/23 17:23 [facility]U Document 08/24/23 14:33 [email or web address] 08/24/23 17:23 SLU Document 08/24/23 14:34 [email or web address] [email or web address] 08/24/23 17:23 SLU Document 08/24/23 14:35 [email or web address] 08/24/23 17:23 SLU Document 08/24/23 14:36 [email or web address] 08/24/23 17:23 SLU Document 08/24/23 14:38 [email or web address] [email or web address] 08/24/23 17:23 [facility]U 08/24/23 08/24/23 08/24/23 14:30 14:33 14:34 Home O2 Evaluation [Oxygen] -Test Phase Resting Exercise Exercise -Oxygen Delivery Room Air Room Air Room Air -Oxygen Flow Rate (L/min) -Fraction of Inspired Oxygen (%) 21 21 21 [Pulse Oximetry] -Pulse Oximetry (90-100 %) 96 95 83 L [Pulse Rate] -Pulse Rate (60-100 beats/min) 87 88 89 [Evaluation] -Activity Tolerance Good Fair [Exercise] -Ambulation Distance (feet) -Ambulation Distance (meters) [Comments] -Home Oxygen Evaluation Comments [Charges] -Evaluation Charges O2 Evaluation by 08/24/23 08/24/23 08/24/23 14:35 14:36 14:38 Home O2 Evaluation [Oxygen] -Test Phase Exercise Exercise Exercise -Oxygen Delivery Nasal Cannula Nasal Cannula Nasal Cannula -Oxygen Flow Rate (L/min) 1 2 3 -Fraction of Inspired Oxygen (%) [Pulse Oximetry] -Pulse Oximetry (90-100 %) 84 L 87 L 93 [Pulse Rate] -Pulse Rate (60-100 beats/min) 88 89 90 [Evaluation] -Activity Tolerance Fair Fair Fair [Exercise] -Ambulation Distance (feet) 150 -Ambulation Distance (meters) 45.71 [Comments] -Home Oxygen Evaluation Comments PT. REQUIRES 3LPM OXYGEN WITH ACTIVITY. DR. EMILIA AND R.N.NOTIFIED OF THE CHANGE. [Charges] -Evaluation Charges
[2023-08-24] MEDS: CALCIUM CARBONATE (TUMS) 500 MG (200 MG ELEMENTAL) 400 MG PO ×2 (18:08→23:59)
--- NOTE | 2023-08-24 18:25 | PCRCNOTE ---
HOME OXYGEN EVALUATION IS COMPLETE; UPDATED ORDER FAXED TO PT'S DME PROVIDER [facility].
[2023-08-24] MEDS: ONDANSETRON INJ 4 MG/2 ML VIAL IV PUSH ×2 (18:37→22:26)
[2023-08-24] MEDS: IBUPROFEN IV 400 MG in SODIUM CHLORIDE 0.9% IV 100 ML 208 MG IVPB (18:44)
[2023-08-24] MEDS: MAG HYDROX/AL HYDROX/SIMETH 30 ML UDC PO (20:56)
[2023-08-24] MEDS: HYDROmorphone HCL INJ (*CRX) 1 MG/ML SYR 0.5 MG IV PUSH (23:58)
[2023-08-25] MEDS: CALCIUM CARBONATE (TUMS) 500 MG (200 MG ELEMENTAL) 400 MG PO (05:19)
[2023-08-25] MEDS: ONDANSETRON INJ 4 MG/2 ML VIAL IV PUSH (05:19)
[2023-08-25 05:26] VITALS: BP 121/75; PULSE 65; RESP 18; TEMP 36.4; O2SAT 98
[2023-08-25] MEDS: CENTRAL LINE FLUSH 10 ML IV PUSH ×3 (06:40→21:52)
[2023-08-25 07:30] VITALS: PULSE 64; RESP 18; O2SAT 95
[2023-08-25] MEDS: FLUTICASONE/UMECLIDIN/VILANTER 100-62.5-25 MCG ELLIPTA 1 PUFF INHALATION (07:30)
[2023-08-25] MEDS: PANTOPRAZOLE 40 MG TABLET PO (07:39)
[2023-08-25] MEDS: ENOXAPARIN 40 MG/0.4 ML SYRINGE SUB-Q (07:39)
[2023-08-25] MEDS: MAG HYDROX/AL HYDROX/SIMETH 30 ML UDC PO (10:28)
[2023-08-25] MEDS: HYDROcodone/acetaminophen (*CRX) 5-325 MG TABLET 1 TAB PO ×2 (10:31→21:51)
--- NOTE | 2023-08-25 10:47 | WPDPN ---
Progress Note: A&P Assessment and Plan (1) Nausea & vomiting: Qualifiers: Vomiting type: unspecified Qualified Code(s): R11.2 - Nausea with vomiting, unspecified Code(s): R11.2 - Nausea with vomiting, unspecified Status: Acute Assessment and Plan: Patient had another episode of nausea and emesis last night although she is having bowel movements now and states she does feel better. She did tolerate some clear liquids. Will restart her Reglan p.o. today. She states she also has some reflux which then causes that the nausea. She has been on Protonix p.o. once a day. Will change that to Pepcid 20mg p.o. b.i.d. and see if this works better for her. We will go ahead and start her on a full liquid diet today. We will go and Ensure supplements as well. Continue to ambulate. (2) Small bowel obstruction: Code(s): K56.609 - Unspecified intestinal obstruction, unspecified as to partial versus complete obstruction Status: Acute Assessment and Plan: Small-bowel obstruction resolved after extensive surgery adhesiolysis. Obstructive series yesterday showed no dilated bowel or evidence of obstruction. Continue supportive management. Subjective Date/time seen: 08/25/23 10:47 Interval history: Patient states she feels okay today but she did have nausea and some emesis last evening. Earlier this morning started having bowel movements and does feel better. She tolerated some clear liquids yesterday. Obstructive series showed no evidence of bowel or ileus picture. Chest x-ray follow-up showed very small apical right pneumothorax which is much improved. Exam GI: Other: Abdomen is soft and minimally distended. Good bowel sounds are noted. Midline incision is healing with no drainage or spreading redness. There is just some localized redness just at the insertion site of the tariq. Objective Data Vital Signs Vital Signs: Vital Signs - 24 hr 08/24/23 10:57 08/24/23 14:30 08/24/23 14:33 Temperature Pulse Rate 87 88 Respiratory Rate Blood Pressure Pulse Oximetry 94 96 95 Oxygen Delivery Nasal Cannula Room Air Room Air Oxygen Flow Rate 2 Fraction of Inspired Oxygen 21 21 08/24/23 14:34 08/24/23 14:35 08/24/23 14:36 Temperature Pulse Rate 89 88 89 Respiratory Rate Blood Pressure Pulse Oximetry 83 L 84 L 87 L Oxygen Delivery Room Air Nasal Cannula Nasal Cannula Oxygen Flow Rate 1 2 Fraction of Inspired Oxygen 08/24/23 14:38 08/24/23 14:00 08/24/23 22:00 Temperature 36.4 C 36.8 C Pulse Rate 90 76 74 Respiratory Rate 16 18 Blood Pressure 117/62 145/85 H Pulse Oximetry 93 96 97 Oxygen Delivery Nasal Cannula Oxygen Flow Rate 3 Fraction of Inspired Oxygen 08/25/23 05:26 08/25/23 08:00 08/25/23 07:30 Temperature 36.4 C Pulse Rate 65 64 Respiratory Rate 18 18 Blood Pressure 121/75 Pulse Oximetry 98 95 Oxygen Delivery Room Air Nasal Cannula Oxygen Flow Rate 2 Fraction of Inspired Oxygen 08/25/23 07:30 Temperature Pulse Rate 64 Respiratory Rate 18 Blood Pressure Pulse Oximetry Oxygen Delivery Oxygen Flow Rate Fraction of Inspired Oxygen Intake/Output Intake/Output: Intake & Output 08/22/23 08/23/23 08/24/23 08/25/23 23:59 23:59 23:59 23:59 Intake Total 2458 2416 3642 150 Output Total 2650 2900 950 150 Balance -192 [facility] 2692 0 Meds/Results Medications: Active Medications Generic Name Dose Route Start Last Admin Trade Name Freq PRN Reason Stop Dose Admin Hydrocodone Bitart/Acetaminophen 1 tab 08/18/23 08:34 08/25/23 10:31 Hydrocodone/Acetaminophen (*Crx) 5-325 Mg Tablet PO 1 tab Q4H PRN Administration Pain Rated 4-6 Al Hydrox/Mg Hydrox/Simethicone 30 ml 08/20/23 11:11 08/25/23 10:28 Mag Hydrox/Al Hydrox/Simeth 30 Ml Udc PO 30 ml Q6H PRN Administration Indigestion Albuterol 2 puff 08/14/23 15:29 Albuterol Sulfate (*Sp) Aerosol 1 Puff INH
[2023-08-25] MEDS: METOCLOPRAMIDE HCL 10 MG TABLET PO ×3 (11:31→21:51)
--- NOTE | 2023-08-25 11:52 | PM.IMPN ---
Progress Note: A&P Assessment and Plan (1) Small bowel obstruction: Code(s): K56.609 - Unspecified intestinal obstruction, unspecified as to partial versus complete obstruction Status: Acute Assessment and Plan: Patient presented with abdominal pain, nausea and vomiting and loose stools and found to have SBO. On 08/13 she underwent ex lap w/ lysis of small bowel adhesions w/ prophylactic appendectomy and ileal resection with side to side anastomosis. She was started on TPN which has now stopped. Her diet was advanced to clear liquids but she did not tolerate. 08/22 NG tube was replaced and she has had good relief and copious NG output. NGT out now and diet resumed 08/24. Having more symptoms overnight but also having stools now Continue full liquid diet without advance Monitor stool output. Pain well controlled. IV ibuprofen q6hr started on 08/22 for pain. Appreciate GenSurg input. Discussed (2) Postoperative ileus: Code(s): K91.89 - Other postprocedural complications and disorders of digestive system; K56.7 - Ileus, unspecified Status: Acute Assessment and Plan: Patient developed postop ileus after her surgery. As above NG tube was removed 08/24 As above Plan discharge when able to tolerate solid foods Encouraged to be up walking in halls (3) Pneumothorax: Qualifiers: Pneumothorax type: other pneumothorax Qualified Code(s): J93.83 - Other pneumothorax Code(s): J93.9 - Pneumothorax, unspecified Status: Acute Assessment and Plan: No CXR on admission but CXR on 08/13 after PICC line placement showing small right PTX. Could have been due to PICC line insertion, barotrauma 2/2 surgery, or even 2/2 underlying COPD. Could also be trapped lung. CXR on 08/25 showing small stable right apical PTX. Repeat CXR in am (4) Chronic respiratory failure with hypoxia: Code(s): J96.11 - Chronic respiratory failure with hypoxia Status: Chronic Assessment and Plan: Pt is on 2LNC at night, with exertion and as needed. Home O2 evaluation results noted. (5) COPD (chronic obstructive pulmonary disease): Qualifiers: COPD type: unspecified COPD Qualified Code(s): J44.9 - Chronic obstructive pulmonary disease, unspecified Code(s): J44.9 - Chronic obstructive pulmonary disease, unspecified Status: Acute Assessment and Plan: Stable. No wheezing Continue inhalers (6) GERD without esophagitis: Code(s): K21.9 - Gastro-esophageal reflux disease without esophagitis Status: Acute Assessment and Plan: PPI Plan Lovenox for DVT prophylaxis. Full Code Subjective Date/time seen: 08/25/23 11:52 Interval history: 62yo female with ch resp failure, hx of SBO, LEVY and anemia here for abdominal pain and found to have SBO. Multiple episodes of belching, acid reflex and constant nausea with vomiting 'all night'. Symptoms began to improve after having BMs. No CP or SOb. Exam Narrative: AF 97.6 121/75 64 18 95% 2L Gen - NARD sitting at the side of the bed Chest - CTA bilaterally CV - RRR S1/S2 Abd -soft. Positive bowel sounds. Midline incision is well approximated and is clean, dry and intact Ext - No pedal edema Psych - Nml mood and affect Skin - Warm and dry Objective Data Vital Signs Vital Signs: Vital Signs - 24 hr 08/24/23 14:30 08/24/23 14:33 08/24/23 14:34 Temperature Pulse Rate 87 88 89 Respiratory Rate Blood Pressure Pulse Oximetry 96 95 83 L Oxygen Delivery Room Air Room Air Room Air Oxygen Flow Rate Fraction of Inspired Oxygen 21 21 21 08/24/23 14:35 08/24/23 14:36 08/24/23 14:38 Temperature Pulse Rate 88 89 90 Respiratory Rate Blood Pressure Pulse Oximetry 84 L 87 L 93 Oxygen Delivery Nasal Cannula Nasal Cannula Nasal Cannula Oxygen Flow Rate 1 2 3 Fraction of Inspired Oxygen 08/24/23 14:00 08/24/23 22
[2023-08-25 14:00] VITALS: BP 145/68; PULSE 59; RESP 18; TEMP 36.7; O2SAT 98
[2023-08-25 20:00] VITALS: O2SAT 93
[2023-08-25 21:25] VITALS: BP 134/67; PULSE 87; RESP 20; TEMP 36.8; O2SAT 93
[2023-08-25] MEDS: FAMOTIDINE 20 MG TABLET PO (21:51)
[2023-08-26] MEDS: SODIUM CHLORIDE 0.9% IV 250 ML (03:50)
[2023-08-26] MEDS: IBUPROFEN IV 400 MG in SODIUM CHLORIDE 0.9% IV 100 ML 208 MG IVPB (03:50)
[2023-08-26 06:00] VITALS: BP 140/73; PULSE 60; RESP 18; TEMP 36.7; O2SAT 98
[2023-08-26] MEDS: CENTRAL LINE FLUSH 10 ML IV PUSH (06:20)
[2023-08-26] MEDS: METOCLOPRAMIDE HCL 10 MG TABLET PO ×2 (06:21→12:04)
[2023-08-26] MEDS: FLUTICASONE/UMECLIDIN/VILANTER 100-62.5-25 MCG ELLIPTA 1 PUFF INHALATION (08:46)
[2023-08-26 09:16] LABS: Anion Gap 7 mmol/L (8-16); Blood Urea Nitrogen 9 mg/dL (7-17); Calcium 8.4 mg/dL (8.4-10.2); Carbon Dioxide 25 mmol/L (22-30); Chloride 102 mmol/L (98-107); Estimated CRCL calculation 63 ml/min; Estimated Glomerular Filt Rate > 60; Glucose 93 mg/dL (65-110); Potassium 3.4 mmol/L (3.4-5.0); Sodium 134 mmol/L (137-145)
[2023-08-26] MEDS: FAMOTIDINE 20 MG TABLET PO (09:16)
[2023-08-26] MEDS: PANTOPRAZOLE SOD SESQUIHYDRATE 20 MG TAB PO (09:16)
[2023-08-26] MEDS: amLODIPine BESYLATE 5 MG TABLET PO (09:16)
[2023-08-26] MEDS: ENOXAPARIN 40 MG/0.4 ML SYRINGE SUB-Q (09:16)
--- NOTE | 2023-08-26 10:34 | PCNFU ---
Nutrition Follow-Up Complete: Inadequate oral intake related to altered GI function as evidenced by recent surgery, need for full parenteral nutrition Goal:Meet estimated protein energy needs Advance to PO intake as medically able Pt is progressing towards goal. Continue with same goal. Pt current nutrition is full liquids. Nutrition recommendation: continue to advance diet to low fiber Last recorded weight is 71 kg. Bowel Motility: +BM 08/26 Labs Reviewed: BUN:6, Cr:0.6 Meds Noted: lovenox, zofran, reglan Skin: no skin issues Additional Notes: Pt is on full liquids, tolerating well now. Diet to possibly advance further today. Ensure compact TID in place for supplement but noted pt prefers the Ensure Clear apple flavor. Will change order. Monitoring diet tolerance, labs, weights, plan of care, diet advancement. Follow up in 5 days.
--- NOTE | 2023-08-26 11:34 | WPDPN ---
Progress Note: A&P Assessment and Plan (1) Postoperative ileus: Code(s): K91.89 - Other postprocedural complications and disorders of digestive system; K56.7 - Ileus, unspecified Status: Acute Assessment and Plan: Resolved. Advanced to low-fat diet today. If tolerating and okay from medical perspective then I think she can discharge home today. I went ahead and wrote a prescription for some Pepcid 20mg p.o. b.i.d.. She seems to think that works better than her Prilosec at home. Also give her prescription for some Raglan since that seemed to also help her nausea here in the hospital. Patient should follow-up see Dr. Madsen in the office in 7 to 10 days for wound check and staple removal. (2) Small bowel obstruction: Code(s): K56.609 - Unspecified intestinal obstruction, unspecified as to partial versus complete obstruction Status: Acute Assessment and Plan: Resolved after exploratory laparotomy extensive adhesiolysis. Subjective Date/time seen: 08/26/23 11:34 Interval history: Patient is doing better today. No nausea no emesis. She states that being on the Reglan seems to have helped her nausea. Also changed her to Pepcid 20mg p.o. b.i.d. which may have also helped her GERD and nausea. She tolerated full liquids. Still having bowel movements. Exam GI: Other: Abdomen soft nondistended. Midline incision is healing well with tariq in place. No redness or drainage. Incisional hernia. Objective Data Vital Signs Vital Signs: Vital Signs - 24 hr 08/25/23 14:00 08/25/23 21:25 08/25/23 20:00 Temperature 36.7 C 36.8 C Pulse Rate 59 L 87 Respiratory Rate 18 20 Blood Pressure 145/68 H 134/67 Pulse Oximetry 98 93 93 Oxygen Delivery Nasal Cannula Oxygen Flow Rate 2 08/26/23 06:00 Temperature 36.7 C Pulse Rate 60 Respiratory Rate 18 Blood Pressure 140/73 Pulse Oximetry 98 Oxygen Delivery Oxygen Flow Rate Intake/Output Intake/Output: Intake & Output 08/23/23 08/24/23 08/25/23 08/26/23 23:59 23:59 23:59 23:59 Intake Total 2416 3642 1247 650 Output Total 2900 950 150 Balance -484 2692 1097 650 Meds/Results Medications: Active Medications Generic Name Dose Route Start Last Admin Trade Name Freq PRN Reason Stop Dose Admin Hydrocodone Bitart/Acetaminophen 1 tab 08/18/23 08:34 08/25/23 21:51 Hydrocodone/Acetaminophen (*Crx) 5-325 Mg Tablet PO 1 tab Q4H PRN Administration Pain Rated 4-6 Al Hydrox/Mg Hydrox/Simethicone 30 ml 08/20/23 11:11 08/25/23 10:28 Mag Hydrox/Al Hydrox/Simeth 30 Ml Udc PO 30 ml Q6H PRN Administration Indigestion Albuterol 2 puff 08/14/23 15:29 Albuterol Sulfate (*Sp) Aerosol 1 Puff INHALATION Q4H PRN Shortness Of Breath Or Wheezing Amlodipine Besylate 5 mg 08/26/23 09:00 08/26/23 09:16 Amlodipine Besylate 5 Mg Tablet PO 5 mg QAM ARELI Administration Calcium Carbonate 400 mg 08/21/23 21:03 08/25/23 05:19 Calcium Carbonate (Tums) 500 Mg (200 Mg Elemental) PO 400 mg Q6H PRN Administration Indigestion, acid reflux Enoxaparin Sodium 40 mg 08/13/23 09:00 08/26/23 09:16 Enoxaparin 40 Mg/0.4 Ml Syringe SUB-Q 40 mg DAILY ARELI Administration Famotidine 20 mg 08/25/23 21:00 08/26/23 09:16 Famotidine 20 Mg Tablet PO 20 mg Q12HR ARELI Administration Fluticasone/Umeclidinium/Vilanterol 1 puff 08/15/23 09:00 08/26/23 08:46 Fluticasone/Umeclidin/Vilanter 100-62.5-25 Mcg Ellipta INHALATION 1 puff DAILY ARELI Administration Hydromorphone HCl 0.5 mg 08/22/23 13:48 08/24/23 23:58 Hydromorphone Hcl Inj (*Crx) 1 Mg/Ml Syr IV PUSH 0.5 mg Q3HR PRN Administration Pain Rated 7-10 Dextrose 1,000 mls @ 50 mls/hr 08/13/23 08:37 Dextrose 10% IV CONT .Q20H PRN if PN is interrupted Ibuprofen 400 mg/ Sodium 104 mls @ 208 mls/hr 08/24/23 10:47 08/26/23 03:50 Chloride IVPB 208 mls/hr Q6H PRN Administration
[2023-08-26] MEDS: POTASSIUM CHLORIDE 20 MEQ PACKET (FOR LIQUID) 40 MEQ PO (12:04)
[2023-08-26 14:00] VITALS: BP 124/59; PULSE 66; RESP 16; TEMP 36.6; O2SAT 98
--- NOTE | 2023-08-26 14:11 | PM.DS ---
DS: Admitting Diagnosis Discharge Date 08/26/23 Admitting Diagnosis Abdominal pain DS: Discharge Diagnosis Discharge Diagnosis (1) Small bowel obstruction: Code(s): K56.609 - Unspecified intestinal obstruction, unspecified as to partial versus complete obstruction Status: Acute (2) Postoperative ileus: Code(s): K91.89 - Other postprocedural complications and disorders of digestive system; K56.7 - Ileus, unspecified Status: Acute (3) Pneumothorax: Qualifiers: Pneumothorax type: other pneumothorax Qualified Code(s): J93.83 - Other pneumothorax Code(s): J93.9 - Pneumothorax, unspecified Status: Acute (4) Chronic respiratory failure with hypoxia: Code(s): J96.11 - Chronic respiratory failure with hypoxia Status: Chronic (5) COPD (chronic obstructive pulmonary disease): Qualifiers: COPD type: unspecified COPD Qualified Code(s): J44.9 - Chronic obstructive pulmonary disease, unspecified Code(s): J44.9 - Chronic obstructive pulmonary disease, unspecified Status: Acute (6) GERD without esophagitis: Code(s): K21.9 - Gastro-esophageal reflux disease without esophagitis Status: Acute DS: Summary Hospital Course Reason for hospitalization: 62yo female with ch resp failure, hx of SBO, LEVY and anemia here for abdominal pain and found to have SBO. Please see H&P for details. Hospital Course: Patient presented with abdominal pain, nausea and vomiting and loose stools and found to have SBO. On 08/13 she underwent exploratory laparotomy with extensive adhesiolysis and small bowel resection (ileum) wjith side to side anastomosis and prophylactic appendectomy. Patient developed postop ileus after her surgery. She was started on TPN. Her diet was started with return of bowel function and diet advanced. No CXR on admission but CXR on 08/13 after PICC line placement showing small right PTX. Could have been due to PICC line insertion, barotrauma due to surgery, and/or even from underlying COPD. Suspect more likely trapped lung. CXR on 08/25 showing small stable right apical PTX. Pt is on 2LNC at night, with exertion and as needed. Home O2 evaluation showed she needed 3L O2 with activity. She was informed to wear 3L O2 with sleep and with activity. Diet was advanced and she tolerated this well. She overall did well and was able to be discharged home on 08/26/23 Status at Discharge Cognitive/behavioral status at discharge: stable Time Spent with Patient Time attestation: Total time spent providing and/or coordinating discharge services: 32 minutes Time spent: Greater than 30 minutes Exam Narrative: AF 98.1 140/73 60 18 98% 2L Gen - NARD Chest - CTA bilaterally CV - RRR S1/S2 Abd -soft. Positive bowel sounds. Midline incision is well approximated and is clean, dry and intact Ext - No pedal edema Psych - Nml mood and affect Skin - Warm and dry DS: Data Data Completed and Pending Completed studies during hospitalization: Pending at discharge 08/12/23 17:20 Surgical [PTH] Routine Labs on day of discharge: Labs from last 24 hours 08/26/23 08:24 Sodium 134 L Potassium 3.4 Chloride 102 Carbon Dioxide 25 Anion Gap 7 L BUN 9 Creatinine 0.70 Estim Creat Clear Calc 63 Estimated GFR > 60 Glucose 93 Calcium 8.4 Discharge Plan Discharge Attending physician on discharge: Florian Sepulveda Consulting providers: Nando Madsen Discharging Clinician: Florian Sepulveda Anticipated Discharge Date/Time: 08/26/23 14:19 Patient Disposition: Home, Self-Care Activity: other - see discharge instructions Diet: low fat Discharge Instructions: May discharge home today if tolerating food without nausea or emesis. No lifting more than 10 to 15 lb for the next 4 weeks. Patient is to follow-up Dr. Madsen in the office in 7 to 10 days for wound check and staple removal.
== END 2023-08-26 16:55 | disposition home or self-care (01) | DRG 330 ==
LOC: ANHED 19:10 → ANH3MEDSUR 20:36
PROVIDERS: Internal Medicine; Nurse Practitioner Family; Surgery; Admitting Provider General Practice; Emergency Provider Preventive Medicine Aerospace Medicine; PCP Emergency Medicine; Visit Provider Internal Medicine
PROC: 0DTB0ZZ Resection of Ileum, Open Approach (ICD-10-PCS; CPT 49000; principal; 2023-08-12 13:30)
DX: K56.50 Intestinal adhesions [bands], unspecified as to partial versus complete obstruction (principal); E44.0 Moderate protein-calorie malnutrition; J95.811 Postprocedural pneumothorax; J95.859 Other complication of respirator [ventilator]; K91.89 Other postprocedural complications and disorders of digestive system; J96.11 Chronic respiratory failure with hypoxia; J98.4 Other disorders of lung; K56.7 Ileus, unspecified; J44.9 Chronic obstructive pulmonary disease, unspecified; K21.9 Gastro-esophageal reflux disease without esophagitis; G47.33 Obstructive sleep apnea (adult) (pediatric); F41.8 Other specified anxiety disorders; D50.9 Iron deficiency anemia, unspecified; E78.2 Mixed hyperlipidemia; G25.81 Restless legs syndrome; M41.9 Scoliosis, unspecified; G62.9 Polyneuropathy, unspecified; E03.9 Hypothyroidism, unspecified; F17.210 Nicotine dependence, cigarettes, uncomplicated; Z86.73 Personal history of transient ischemic attack (TIA), and cerebral infarction without residual deficits; Z98.42 Cataract extraction status, left eye; Z98.41 Cataract extraction status, right eye; Z90.49 Acquired absence of other specified parts of digestive tract; Z90.710 Acquired absence of both cervix and uterus; Z68.29 Body mass index [BMI] 29.0-29.9, adult
CPT/HCPCS: 36415; 36569; 71045; 71046; 74018; 74019; 74177; 80048; 80053; 81001; 82948; 83605; 83690; 83735; 84100; 84145; 84466; 84478; 85025; 85027; 85610; 85730; 88304; 88307; 94618; 94640; 96361; 96374; 96375; 96376; 99199; 99285; A9270; C9113; G0378; J0690; J1100; J1170; J1650; J1741; J1836; J2250; J2270; J2405; J2550; J2704; J2765; J3010; J3480; J7030; J7050; J7120; Q9967

== ENCOUNTER 2023-09-05 09:30 | Outpatient (CLI) | payer MEDICARE, MEDICAID, SELFPAY ==
--- NOTE | ~2023-09-05 | XR_ITS ---
Clinical Indication: Pneumothorax, emphysema PA and lateral views of the chest: Comparison: 08/25/2023 Findings: Minimal bilateral pleural effusions are present. There is emphysema with stable scarring ri ght midlung. No pneumothorax evident.. Cardiomediastinal silhouette is within normal limits. Bones a nd soft tissues are unremarkable. Impression: No pneumothorax evident. Emphysema stable scarring right midlung. Small bilateral pleural effusions. Reviewed, dictated and finalized at location . 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 Emphysema stable scarring right midlung. Small bilateral pleural effusions.
[2023-09-05 10:35] LABS: Alanine Aminotransferase 35 U/L (6-35); Albumin Level 3.6 g/dL (3.5-5.1); Alkaline Phosphatase 100 U/L (38-126); Anion Gap 6 mmol/L (8-16); Aspartate Amino Transferase 34 U/L (14-36); Bilirubin,Total 0.3 mg/dL (0.2-1.3); Blood Urea Nitrogen 11 mg/dL (7-17); Calcium 8.2 mg/dL (8.4-10.2); Carbon Dioxide 33 mmol/L (22-30); Chloride 99 mmol/L (98-107); Estimated Glomerular Filt Rate > 60; Glucose 105 mg/dL (65-110); Potassium 3.2 mmol/L (3.4-5.0); Sodium 138 mmol/L (137-145)
[2023-09-05 10:54] LABS: Vitamin D 25 Hydroxy 15.3 ng/mL
== END 2023-09-05 09:31 | disposition home or self-care (01) ==
LOC: ANHIMG 09:35
PROVIDERS: PCP Emergency Medicine; Visit Provider Emergency Medicine
DX: J93.9 Pneumothorax, unspecified (principal); I10 Essential (primary) hypertension; E55.9 Vitamin D deficiency, unspecified; J90 Pleural effusion, not elsewhere classified; J43.9 Emphysema, unspecified
CPT/HCPCS: 36415; 71046; 80053; 82306

== ENCOUNTER 2023-09-11 10:35 | Outpatient (CLI) | payer MEDICARE, MEDICAID, SELFPAY ==
[2023-09-11 10:59] LABS: Potassium 3.5 mmol/L (3.4-5.0)
== END 2023-09-11 10:36 | disposition home or self-care (01) ==
PROVIDERS: PCP Emergency Medicine; Visit Provider Emergency Medicine
DX: E87.6 Hypokalemia (principal)
CPT/HCPCS: 36415; 84132

== ENCOUNTER 2023-11-05 02:20 | Emergency (ER) | payer MEDICARE, MEDICAID, SELFPAY ==
--- NOTE | ~2023-11-05 | CT_ITS ---
CT of the Abdomen and Pelvis: Indication: Small bowel obstruction Technique: 2.5 mm axial scans were obtained through the abdomen and pelvis following intravenous adm inistration of 100 cc of Omnipaque 350. Dose reduction technique was used on this scan by utilizing a utomated exposure control and iterative reconstruction technique. The dose-length product (DLP) was 4 65.46 mGy-cm. COMPARISON: 08/09/2023 Findings: Scans through the lung bases are unremarkable. The liver, spleen, pancreas, adrenals and kidneys are within normal limits. Cholecystectomy clips are present. No evidence of aortic aneurysm. No lymphadenopathy. No bowel obstruction. Distal rectal anastomosis noted. Small bowel anastomosis noted. No abscess or f ree air evident.. Questionable mild wall thickening of several small bowel loops. Images through the pelvis were performed. Urinary bladder unremarkable. No pelvic mass seen. No ascit es. Impression: Questionable mild wall thickening of several small bowel loops. Correlate for infectious/inflammatory enteritis. No bowel obstruction. Reviewed, dictated and finalized at location . 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 Correlate for i nfectious/inflammatory enteritis. No bowel obstruction.
[2023-11-05 02:29] VITALS: BP 129/105; PULSE 87; RESP 20; TEMP 36.6; O2SAT 94
[2023-11-05 03:40] LABS: Basophils Absolute Auto 0.1 K/mm3 (0.0-0.1); Basophils Percent Auto 0.5 % (0.2-1.2); Eosinophils Absolute Auto 0.1 K/mm3 (0-0.3); Eosinophils Percent Auto 0.7 % (0-4.4); Hematocrit 44.8 % (37.0-47.0); Hemoglobin 14.6 g/dL (12.0-15.0); Immature Granulocyte Absolute 0.05 K/mm3 (0.00-0.031); Immature Granulocyte Percent A 0.4 % (0-0.5); Lymphocytes Absolute Auto 2.87 K/mm3 (0.9-3.2); Lymphocytes Percent Auto 22.7 % (18.3-44.2); Mean Corpuscular HGB Conc 32.6 g/dl (32-36); Mean Corpuscular Hemoglobin 30.2 pg (26-34); Mean Corpuscular Volume 92.8 fl (80-100); Mean Platelet Volume 9.6 fl (7.4-10.4); Monocytes Absolute Auto 0.5 K/mm3 (0.1-0.6); Neutrophils Absolute Auto 9.1 K/mm3 (1.3-6.7); Neutrophils Percent Auto 71.7 % (45.5-73.1); Platelet Count Result 376 k/mm3 (150-375); Red Blood Count 4.83 M/mm3 (4.2-5.4); Red Cell Distribution Width 14.6 % (11.5-14.5); White Blood Count 12.7 K/mm3 (4.5-10.0)
[2023-11-05 03:49] LABS: Lactic Acid Reflex 1.2 mmol/L (0.7-2.0)
[2023-11-05 03:50] LABS: Alanine Aminotransferase 15 U/L (6-35); Albumin Level 4.7 g/dL (3.5-5.1); Alkaline Phosphatase 128 U/L (38-126); Anion Gap 8 mmol/L (8-16); Aspartate Amino Transferase 27 U/L (14-36); Bilirubin,Total 0.5 mg/dL (0.2-1.3); Blood Urea Nitrogen 16 mg/dL (7-17); Calcium 9.8 mg/dL (8.4-10.2); Carbon Dioxide 26 mmol/L (22-30); Chloride 105 mmol/L (98-107); Estimated CRCL calculation 77 ml/min; Estimated Glomerular Filt Rate > 60; Glucose 123 mg/dL (65-110); Lipase 57 U/L (23-300); Potassium 3.9 mmol/L (3.4-5.0); Sodium 139 mmol/L (137-145)
[2023-11-05 05:59] VITALS: BP 146/86; PULSE 79; RESP 15; O2SAT 97
--- NOTE | 2023-11-05 06:03 | ED.ABDPAIN ---
HPI - Abdominal Pain General Chief Complaint: Abdominal Pain Stated Complaint: bowel blockage again , stomach cramping Time Seen by Provider: 11/05/23 05:40 History of Present Illness HPI narrative: Patient is a 62-year-old female who presents to the emergency department this evening complaining of nausea, vomiting, and constipation for the past few days. Patient is concerned that she is having another bowel obstruction as she does have a history of a small-bowel obstruction. She denies any abdominal pain denies any melena or hematochezia. Patient also denies any chest pain, shortness of breath, dysuria or hematuria. While the patient was waiting in the emergency department, she did have a bowel movement. Patient states her symptoms did improve after having a bowel movement. She is currently denying any additional symptoms. There are no other modifying, alleviating, or precipitating factors at this time. Related Data Home Medications Medication Instructions Recorded Confirmed albuterol sulfate 90 mcg/actuation 2 inhalation inhalation Q4H PRN 09/21/19 10/28/23 aerosol inhaler (ProAir HFA) Shortness Of Breath Or Wheezing modafinil 200 mg tablet (Provigil) 200 mg PO QAM PRN sleep apnea 09/21/19 10/28/23 pantoprazole 20 mg tablet,delayed 20 mg PO DAILY 08/09/23 10/28/23 release Allergies Allergy/AdvReac Type Severity Reaction Status Date / Time famotidine Allergy Intermediate Itching Verified 10/02/23 13:06 latex Allergy Unknown unknown Verified 10/02/23 13:06 Penicillins Allergy Unknown unknown Verified 10/02/23 13:06 Review of Systems Review of Systems: All systems are reviewed and are negative unless stated otherwise in the HPI. [facility] Past Medical History Medical History B12 deficiency Chronic back pain Chronic constipation Chronic obstructive pulmonary disease Chronic respiratory failure with hypoxia On 2 liters nasal cannula p.r.n. Depression with anxiety Dyslipidemia GERD without esophagitis History of vaginal delivery Hypothyroidism Iron deficiency anemia Migraine headache Mixed hyperlipidemia Obstructive sleep apnea Peripheral neuropathy Restless leg syndrome, controlled Scoliosis Small bowel obstruction due to adhesions Previous, multiple admissions for such. TIA (transient ischemic attack) (~2000) Vitamin D deficiency Surgical History Surgical History Bladder prolapse Repair of bladder prolapse. H/O exploratory laparotomy History of bilateral cataract extraction History of bowel resection 2009 low anterior resection History of cholecystectomy Open cholecystectomy History of colostomy History of colostomy reversal History of eye surgery Treatment of amblyopia. History of hysterectomy History of neck surgery History of tonsillectomy and adenoidectomy Rectal prolapse Rectal prolapse repair. Status post small bowel resection (~01/2019) Exploratory laparotomy with resection of 36 centimeters of the small bowel with extensive adhesiolysis and ileal-ileal anastomosis. [place] teeth removed Family History Family History Father Cirrhosis Alcoholism Mother Emphysema of lung Alcoholism Sibling No problems noted. Social History Social History Social History: The patient lives in [place] with her significant other, Luis Fernando. They have been together since 1997. 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 She smoked about a pack of cigarettes per day since she was in her 20s. She denies alcohol and illicit substance abuse. She designates her son, Rohit, as her surrogate decision maker and she wishes to be a full code. Smoking packs per day: 1 Smoking cigarettes per day: 20.0 Years smoked: 40 Smoking pack-years: 40.00 Smoking status: [place]
== END 2023-11-05 06:34 | disposition home or self-care (01) ==
LOC: ANHED 06:10
PROVIDERS: Emergency Provider Emergency Medicine; PCP Emergency Medicine
DX: K52.9 Noninfective gastroenteritis and colitis, unspecified (principal); K59.00 Constipation, unspecified; R10.9 Unspecified abdominal pain; F17.210 Nicotine dependence, cigarettes, uncomplicated; G89.29 Other chronic pain; J44.9 Chronic obstructive pulmonary disease, unspecified; Z99.81 Dependence on supplemental oxygen; F32.A Depression, unspecified; F41.9 Anxiety disorder, unspecified; K21.9 Gastro-esophageal reflux disease without esophagitis; G47.30 Sleep apnea, unspecified
CPT/HCPCS: 36415; 74177; 80053; 82248; 83605; 83690; 85025; 99284; Q9967

== ENCOUNTER 2024-07-13 08:10 | Outpatient (CLI) | payer MEDICARE, MEDICAID, SELFPAY ==
[2024-07-13 08:59] LABS: Alanine Aminotransferase 14 U/L (6-35); Albumin Level 4.6 g/dL (3.5-5.1); Alkaline Phosphatase 79 U/L (38-126); Anion Gap 8 mmol/L (4-12); Aspartate Amino Transferase 34 U/L (14-36); Bilirubin,Total 0.3 mg/dL (0.2-1.3); Blood Urea Nitrogen 16 mg/dL (7-17); Calcium 9.1 mg/dL (8.4-10.2); Carbon Dioxide 30 mmol/L (22-30); Chloride 101 mmol/L (98-107); Cholesterol 221 mg/dL (0-200); Estimated Glomerular Filt Rate > 60; Glucose 94 mg/dL (65-110); HDL Direct 64 mg/dL; Potassium 4.2 mmol/L (3.4-5.0); Sodium 139 mmol/L (137-145); Triglycerides 97 mg/dL (<150)
[2024-07-13 09:10] LABS: LDL Cholesterol Direct 107 mg/dL
[2024-07-13 09:14] LABS: Vitamin D 25 Hydroxy 26.7 ng/mL
== END 2024-07-13 08:11 | disposition home or self-care (01) ==
LOC: ANHLAB 08:11
PROVIDERS: PCP Emergency Medicine; Visit Provider Emergency Medicine
DX: E55.9 Vitamin D deficiency, unspecified (principal); E78.5 Hyperlipidemia, unspecified; I10 Essential (primary) hypertension
CPT/HCPCS: 36415; 80053; 80061; 82306

== ENCOUNTER 2024-10-25 14:22 | Outpatient (CLI) | payer MEDICARE, MEDICAID, SELFPAY ==
--- NOTE | ~2024-10-25 | MM_ITS ---
EXAMINATION: MM screening sailaja BI w renato HISTORY: Screening mammogram TECHNIQUE: Craniocaudal and mediolateral oblique 3-D tomosynthesis images were obtained and synthetic 2-D images were generated. CAD analysis was submitted and interpreted. COMPARISON: 04/18/2023, 03/01/2021 BREAST PARENCHYMAL COMPOSITION:Not Dense. The breasts are almost entirely fatty FINDINGS: No suspicious mass, calcification, or architectural distortion are identified in either josh ast to suggest malignancy. There has been no suspicious interval change. IMPRESSION: No mammographic evidence of malignancy. Recommend routine screening mammography in one year. BI-RADS Category 1: Negative Reviewed, dictated and finalized at location .
--- OUTSIDE RECORDS SUMMARY | 2024-10-25 16:46 | XMS_ITS | Referral Summary ---
Author Organization [facility] Address [address] [place] [address] Care Team Providers Care Client Experience Consultant Name Role Phone Ernst Osorio MD Primary Care Provide r Encounters Date Type Department Care Team Description 09/03/2024 10:15 AM FRONT END DRUPAL DEVELOPER Office Visit [facility] [address] [place] [address] Letty Heart NP Centrilobular emphysema (HCC) (Primary Dx); Hypersomnia; Obstructive sleep apnea; Periodic limb movement disorder; Tobacco abuse; Lung nodules; Enlarged pulmonary artery (HCC); Hypoxemia from Last 3 Months Allergies Active Allergy Reactions Criticality Noted Date Comments Adhesive Tape-Silicones Rash Medium 12/04/2018 Rash Amoxicillin Hives Medium 12/04/2018 hives Latex Rash Medium 01/04/2022 Penicillins Hives Medium 04/11/2020 Venom-Honey Bee Swelling Medium 01/04/2022 Medications docusate sodium (DOK) 100 mg tabletIndicatio ns:constipation Take 3 tablets (300 mg total) by mouth cleaning professional before breakfast Active DULoxetine DR (CYMBALTA) 30 mg capsule Take 1 capsule (30 mg total) by mouth daily 0 Active acetaminophen 500 mg capsule Take 2 capsules (1,000 mg total) by mouth every 6 (six) hours 30 tablet 0 Active tiZANidine (ZANAFLEX) 2 mg tablet Take 1 tablet (2 mg total) by mouth every 8 (eight) hours as needed for muscle spasms 30 tablet 1 0 Active meloxicam (MOBIC) 15 mg tablet TK 1 T PO QD PRN FOR PAIN [address] (PROTONIX) 20 mg EC tablet 1 Active traMADoL (ULTRAM) 50 mg tablet Take by mouth every 6 (six) hours as needed 0 Active triamcinolone (KENALOG) 0.1 % ointment PASTOR EXT AA TID FOR 10 DAYS 0 Active buPROPion SR (ZYBAN) 150 mg 12 hr tablet Take 1 tablet (150 mg total) by mouth daily 1 Active promethazine (PHENERGAN) 25 mg tablet 1 Active polyethylene glycol-electrol ytes 420 gram solution 1 Active FeroSuL 325 mg (65 mg iron) tablet Take 1 tablet (325 mg total) by mouth 2 (two) times a day 2 Active cyclobenzaprine (FLEXERIL) 5 mg tablet Take 1 tablet (5 mg total) by mouth 3 (three) times a day as needed for muscle spasms 3 Active guaiFENesin ER (MUCINEX) 600 mg 12 hr tabletIndicatio ns:Centrilobula r emphysema (HCC) Take 2 tablets (1,200 mg total) by mouth 2 (two) times a day 120 tablet 11 3 Active amLODIPine (NORVASC) 5 mg tablet Take 1 tablet (5 mg total) by mouth every morning 3 Active albuterol 2.5 mg /3 mL (0.083 %) nebulizer solutionIndicat ions:Chronic obstructive pulmonary disease, unspecified COPD type (HCC) Take 3 mL (2.5 mg total) by nebulization every 6 (six) hours as needed for wheezing for up to 120 doses 120 mL 2 4 Active rOPINIRole (REQUIP) 1 mg tabletIndicatio ns:Periodic limb movement disorder Take 1 tablet (1 mg total) by mouth nightly 90 tablet 3 4 Active albuterol HFA (ProAir HFA) 90 mcg/actuation inhalerIndicati ons:Centrilobul ar emphysema (HCC) Inhale 2 puffs every 6 (six) hours as needed for wheezing 25.5 g 3 4 Active Trelegy Ellipta 100-62.5-25 mcg inhaler INHALE 1 PUFF BY MOUTH DAILY 60 each 3 4 Active fluticasone propionate (FLONASE) 50 mcg/actuation nasal sprayIndication s:Centrilobular emphysema (HCC) SHAKE LIQUID AND USE 2 SPRAYS IN EACH NOSTRIL DAILY 16 g 6 4 Active modafiniL (PROVIGIL) 200 mg tabletIndicatio ns:Sleepiness Due To Obstructive Sleep Apnea Take 1 tablet (200 mg total) by mouth daily 90 tablet 3 5 Active Active Problems Problem Noted Date Diagnosed Date Hypoxemia 09/03/2024 Assessment & Plan (09/03/2024 10:53 AM FRONT END DRUPAL DEVELOPER): Due to continued symptoms, patient continue oxygen 2.5 L with activity and the patient will continue 2 L of oxygen via nasal cannula at night while sleeping 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 The patient was informed that untreated sleep apnea and also Chronic obstructive pulmonary disease can lead to pulmonary hypertension. Primary hypertension 09/26/2023 Assessment & Plan (12/31/2023 8:53 AM CDT): Will continue to follow with PCP Assessment & Plan (09/26/2023 8:43 AM FRONT END DRUPAL DEVELOPER): I have ordered an echocardiogram. Lung nodules 05/21/2023 Assessment & Plan (09/03/2024 10:53 AM FRONT END DRUPAL DEVELOPER): CT scan ordered for November of 2024 Assessment & Plan (12/31/2023 8:53 AM CDT): Patient continues to have pulmonary nodules monitored by CT scanning. A CT scan has been ordered for November of 2024 Assessment & Plan (09/26/2023 8:43 AM FRONT END DRUPAL DEVELOPER): I have ordered another CT scan for December of 2023. Assessment & Plan (05/21/2023 10:19 AM CDT): She has new lung nodules in the left upper lobe on the most recent screening chest CT. The largest nodule 7 mm in the left upper lobe. I will order another chest CT for August 2023. Iron deficiency anemia 01/04/2022 Other dietary vitamin B12 deficiency anemia 01/2022 Cervical disc disorder with myelopathy of mid-cervical region 03/15/2020 Overview (03/15/2020): Added automatically from request for surgery [id number] Tobacco abuse 03/08/2020 Assessment & Plan (09/03/2024 10:52 AM FRONT END DRUPAL DEVELOPER): The patient has been encouraged to decrease smoking. The patient has a CT scan ordered for November of 2024 Assessment & Plan (12/31/2023 8:54 AM CDT): The patient recently resumed smoking. I did encourage the patient to continue to try to quit smoking. A lung cancer screening CTs been ordered for November of 2024 Assessment & Plan (09/26/2023 8:43 AM FRONT END DRUPAL DEVELOPER): The patient has stopped smoking on August 11, 2023. Assessment & Plan (10/23/2022 9:32 AM FRONT END DRUPAL DEVELOPER): Patient will continue to try to decrease the number cigarettes use. She has a history of 0.5 packs of cigarettes per day for over 40 years. She is currently smoking 6 cigarettes per day. I have reordered the lung cancer screening CT Assessment & Plan (02/01/2022 12:32 PM CDT): The patient was once again encouraged to stop smoking. The patient states she has been called regarding her low-dose screening CT scan however she has not set up an appointment for that. Patient states she is going to schedule an appointment. Assessment & Plan (03/14/2021 9:32 AM CDT): The patient continues to smoke 5-6 cigarettes per day. I strongly encouraged her to quit smoking. I will reorder another screening chest CT to be performed after 02/28/2021. Assessment & Plan (09/13/2020 10:12 AM FRONT END DRUPAL DEVELOPER): The patient was educated on the need to decrease the number of cigarette use per day with ultimate goal of quitting. The patient will also receive a lung screening CT in January of 2021. This is been ordered for the patient. Assessment & Plan (03/08/2020 9:50 AM CDT): The patient recently restarted smoking 4-5 cigarettes per day since October 2019. The patient was encouraged to once again attempt to quit smoking cigarettes. GERD (gastroesophageal reflux disease) 8 Obesity 11/14/2016 Cigarette nicotine dependence in remission 08/16 Overview (02/18/2019): Former smoker. Patient quit smoking 12/24/2016. Assessment & Plan (05/21/2023 10:18 AM CDT): The patient is smoking 1/2 pack of cigarettes per day. I did encourage her to try to quit smoking again. Centrilobular emphysema 02/28/2016 Assessment & Plan (09/03/2024 10:51 AM FRONT END DRUPAL DEVELOPER): Due to ongoing symptoms, the patient will continue Trelegy 1 puff daily and rinse mouth after use. Patient has an albuterol inhaler to use on a p.r.n. basis and up to 4 times a day as needed for symptom control. Assessment & Plan (03/23/2024 2:12 PM CDT): Due to continued symptoms, the patient will continue with Trelegy one puff daily and rinse mouth after use. The patient has an albuterol inhaler/nebulizer to use on a p.r.n. basis. The patient uses 2.5 L with activity.. I have ordered Tessalon Perles due to the cough Assessment & Plan (09/26/2023 8:41 AM FRONT END DRUPAL DEVELOPER): Patient continue to use Trelegy one inhalation once a day. Patient continue with her albuterol inhaler as needed up 4 times a day for shortness of breath. Assessment & Plan (05/21/2023 10:18 AM CDT): The patient is breathing is under control with Trelegy 1 puff daily and p.r.n. use of albuterol MDI. She does continue on Mucinex. She is using oxygen at 2 liters/minute with activity. Assessment & Plan (10/23/2022 9:31 AM FRONT END DRUPAL DEVELOPER): Will continue with Trelegy. The patient has an albuterol inhaler/nebulizer she may use on a p.r.n. basis. I have ordered Flonase and Mucinex. The patient was interested in a smart vest if the mucus is not improve. I have also ordered the nebulizer solutions. Patient will continue with 2 L of oxygen with activity and while sleeping. Assessment & Plan (02/01/2022 12:29 PM CDT): Due to the patient having an increase in shortness of breath I have given her samples of Trelegy to use one puff once a day. Patient is aware to stop using her Advair while on the Trelegy. Patient continue to use her albuterol inhaler nebulizer as needed up to 4 times a day for shortness of breath. Assessment & Plan (03/14/2021 9:30 AM CDT): The patient has COPD with ongoing tobacco use and worsening respiratory function. I will check full PFTs and then re-enroll her in the pulmonary rehab program. I have refilled her albuterol for the nebulizer. I will also give her 10 days of doxycycline since she has an upper respiratory tract infection. She continues on the Advair. Assessment & Plan (09/13/2020 10:10 AM FRONT END DRUPAL DEVELOPER): The patient will continue with Advair as ordered. The patient also has ProAir and nebulizer treatments that she may use p.r.n. up to 4 times a day as needed for COPD symptoms, wheeze, cough, or shortness of breath. Assessment & Plan (06/23/2020 11:46 AM CDT): The patient will continue to use her Advair as ordered. The patient also has ProAir and nebulizer treatments that she may use up to 4 times a day p.r.n. for shortness of breath and wheezing. The patient will need another CT scan in January of 2021. It will be ordered at her next visit. The patient will continue 2 L of oxygen at night and 2 L nasal cannula oxygen therapy p.r.n. during the day. The patient is benefitting from oxygen therapy. Assessment & Plan (06/02/2019 10:40 AM CDT): I did send the patient a Zpack due to the nasal congestion. I did recommend that the patient hold off on her flu shot until after she is feeling better for 2 weeks. Hypersomnia 02/28/2016 Overview (02/18/2019): Patient will continue to use Nuvigil 150 mg p.o. q. a.m. on a p.r.n. basis. Assessment & Plan (09/03/2024 10:51 AM FRONT END DRUPAL DEVELOPER): Due to continued symptoms, the patient will continue with Provigil 200 mg on a p.r.n. basis/daily Assessment & Plan (12/31/2023 8:52 AM CDT): The patient will continue with Provigil 200 mg daily/p.r.n.. I have refilled the medication I will refill for 1 year Assessment & Plan (09/26/2023 8:41 AM FRONT END DRUPAL DEVELOPER): The patient continues to use Nuvigil 150 mg as a p.r.n. basis. The patient states she only uses it if she is very tired during the day are goes on long drives. Assessment & Plan (05/21/2023 10:18 AM CDT): The patient's hypersomnia is under control with Provigil 200 mg in the morning. Assessment & Plan (10/23/2022 9:31 AM FRONT END DRUPAL DEVELOPER): Will continue Provigil 200 mg in the morning and on a p.r.n. basis. I have reordered the medication. Assessment & Plan (03/14/2021 9:30 AM CDT): The patient continues to benefit from Provigil 200 mg q.a.m. Assessment & Plan (09/13/2020 10:11 AM FRONT END DRUPAL DEVELOPER): The patient will continue with Provigil 200 mg as needed for daytime hypersomnia. Assessment & Plan (03/08/2020 9:50 AM CDT): The patient is currently taking Provigil 200 mg rarely. She states that she only takes it prior to driving her baby-sitting her grandchildren. Obstructive sleep apnea 02/28/2016 Overview (02/18/2019): Patient continues to try to use her CPAP. If she does miss a night the patient states she is using 2 liters per minute of oxygen via nasal cannula. Assessment & Plan (09/03/2024 11:18 AM FRONT END DRUPAL DEVELOPER): The patient is going to try to CPAP once again. The patient has 2 L of oxygen that she will need to bleed into the circuit. Assessment & Plan (12/31/2023 8:53 AM CDT): The patient is intolerant of CPAP. She uses 2 L of oxygen p.r.n.. The patient is utilizing positional therapy Assessment & Plan (09/26/2023 8:42 AM FRONT END DRUPAL DEVELOPER): The patient continues to use positional therapy. The patient was informed that untreated sleep apnea can lead to pulmonary hypertension. The patient was found have an enlarged pulmonary artery on her last CT scan. Assessment & Plan (05/21/2023 10:19 AM CDT): The patient is practicing positional therapy and is not tolerant of CPAP. She is using oxygen at 2 liters/minute while sleeping. Assessment & Plan (10/23/2022 9:31 AM FRONT END DRUPAL DEVELOPER): I encouraged the patient to resume CPAP therapy. She is currently practicing positional therapy with 2 L of oxygen via nasal cannula while sleeping. DME [facility] Assessment & Plan (02/01/2022 12:34 PM CDT): The patient was encouraged to resume the use of her CPAP. She continues to use 2 L of oxygen at night while sleeping. Her DME is [facility] patient. The patient is going to go on vacation in July. She will call back in the middle of June to get a portable oxygen concentrator to take on her trip. Assessment & Plan (03/14/2021 9:31 AM CDT): The patient for got to bring her smart card but she states that she is using the CPAP unit every night with oxygen at 2 L bled into the circuit. She states that sometimes she does unconsciously take the mask off at night. Assessment & Plan (09/13/2020 10:11 AM FRONT END DRUPAL DEVELOPER): The patient was educated on the need to wear CPAP therapy in order to help with her daytime sleepiness, COPD symptoms, and obstructive sleep apnea. The patient states that she currently wears at on and off and not on a consistent basis. Patient is benefitting from CPAP therapy. The patient states that she will put 2 L of oxygen into her CPAP when she uses it. Assessment & Plan (03/08/2020 9:49 AM CDT): The patient was encouraged to continue wearing her CPAP machine on a regular basis. The patient was is educated on a CPAP machine helping with daytime sleepiness. Periodic limb movement disorder 02/28/2016 Overview (02/18/2019): Patient will continue to take Requip 1 mg p.o. q.h.s. Assessment & Plan (09/03/2024 10:52 AM FRONT END DRUPAL DEVELOPER): Due to continued symptoms, the patient will continue Requip 1 mg nightly Assessment & Plan (12/31/2023 8:53 AM CDT): The patient will continue with ropinirole 1 mg and iron supplementation. I have refilled the ropinirole and will refill for 1 year Assessment & Plan (09/26/2023 8:42 AM FRONT END DRUPAL DEVELOPER): The patient already restart to use Requip 1 mg p.o. Q HS Assessment & Plan (05/21/2023 10:19 AM CDT): The PLMS are under control with Requip 1 mg at bedtime. Assessment & Plan (10/23/2022 9:32 AM FRONT END DRUPAL DEVELOPER): The patient will continue Requip 1 mg nightly. I have reordered medication Assessment & Plan (02/01/2022 12:29 PM CDT): The patient continues to benefit from Requip 1 mg at bedtime. Assessment & Plan (03/14/2021 9:31 AM CDT): The patient continues to benefit from Requip 1 mg at bedtime and the patient states that if she misses a dose, she has problems with her legs at night Assessment & Plan (09/13/2020 10:12 AM FRONT END DRUPAL DEVELOPER): The patient will continue with Requip 1 mg p.o. at bedtime to manage her periodic limb movement disorder. Assessment & Plan (03/08/2020 9:50 AM CDT): The patient will continue to take Requip 1 mg at bedtime. Patient states she is currently asymptomatic on this medical treatment. Immunizations Immunization Administration Dates Next Due Influenza, Quadrivalent, Spl it, Intramuscular 07/09/2019,08/16/2016 Influenza, Quadrivalent, Spl it, Preservative Free, Intramuscular 06/30/2020,07/05/2019,08/03/2018 Influenza, Trivalent, IM (MDV) 07/02/2017 Pneumococcal Conjugate PCV 13 02/05/2015 Pneumococcal Polysaccharide PPV23 08/16/2016 Social History Tobacco Use Types Packs/Day Years Used Date Smoking Tobacco: Former Cigarettes 0.8 52.9 1 971 - 08/11/2023 Smokeless Tobacco: Never Tobacco Cessation:Counseling Given: Not Answered Comments:currently smokes .25 packs per day since 2020 Alcohol Use Standard Drinks/Week Comments Not Currently 0 (1 standard drink = 0.6 oz pur e alcohol) AUDIT-C Answer Date Recorded Frequency of Alcohol Consumption Never 06/02/2019 Average Number of Drinks Not on file Frequency of Binge Drinking Not on file 10/2018 Comments No Sex and Gender Information Value Date Recorded Sex Assigned at Not on file Legal Sex Female 7:58 AM FRONT END DRUPAL DEVELOPER Gender Identity Not on file Sexual Orientation Not on file Last Filed Vital Signs Vital Sign Reading Time Taken Comments Blood Pressure 156/87 09/03/2024 10:49 AM FRONT END DRUPAL DEVELOPER Pulse 69 09/03/2024 10:49 AM FRONT END DRUPAL DEVELOPER Temperature 36 C (96.8 F) 09/03/2024 10:49 AM FRONT END DRUPAL DEVELOPER Respiratory Rate 18 09/03/2024 10:49 AM FRONT END DRUPAL DEVELOPER Oxygen Saturation 94% 09/03/2024 10:49 AM FRONT END DRUPAL DEVELOPER Inhaled Oxygen Concentration - - Weight 70.3 kg (155 lb) 09/03/2024 10:49 AM FRONT END DRUPAL DEVELOPER Height 157.5 cm (5' 2.01 ) 09/03/2024 10:49 AM C Body Mass Index 28.34 09/03/2024 10:49 AM FRONT END DRUPAL DEVELOPER Plan of Treatment Not on file Medical Devices Implanted Type Area Instrument Processing Tech Device Identifier Shelf Expiration Date Model / Serial / Lot Medtronic Sofamor Danek [id number] Centerpiece 10mm Lateral Hole Open Door Color Coded Spine - [id number] Implanted:Qty: 3 on 04/11/2020 by Brandon Pryor MD at [facility] N/A: Spine Cervical Med[employer] Inc [id number] / / Medtronic Sofamor Danek [id number] Centerpiece 2.6mm 7mm Self Tap Stab Grab Color Coded Spine Screw - [id number] Implanted:Qty: 6 on 04/11/2020 by Brandon Pryor MD at [facility] N/A: Spine Cervical Med[employer]onic Inc [id number] / / Medtronic Sofamor Danek [id number] Centerpiece 2.6mm 5mm Self Tap Stab Grab Color Coded Spine Screw - [id number] Implanted:Qty: 6 on 04/11/2020 by Brandon Pryor MD at [facility] N/A: Spine Cervical Med[employer]onic Inc [id number] / / Procedures Procedure Name Priority Date/Time Associated Diagnosis Comments CT CHEST WO CONTRAST F/U LUNG SCREEN PROTOCOL Schedule Routine, Read Routine (OP Routine) 12/26/2023 8:27 AM CDT Lung nodules HEPATITIS PANEL, ACUTE Routine 01/09/2014 6:46 AM CDT SCREENING MAMMOGRAM 2D BILATERAL Routine 09/02/2012 7:42 AM FRONT END DRUPAL DEVELOPER from Last 3 Months or Most Recently Relevant to Health Maintenance Results * CT Chest WO Contrast F/U Lung Screen Protocol (12/26/2023 8:27 AM CDT) Anatomical Region Laterality Modality Chest N/A Computed Tomogra phy 12/26/2023 2:14 PM CDT Narrative 12/26/2023 2:32 PM CDT EXAM DESCRIPTION: CT CHEST WO CONTRAST F/U LUNG SCREEN PROTOCOL REASON FOR STUDY: Screening CT of the chest in a current smoker with a 25.5 pack year smoking history. Additional history: None. TECHNIQUE: Low dose CT scan of the chest was performed without intravenous contrast using helical scanning technique. The exam extends from the lung apices through the lung bases. Automatic exposure control was used as a dose optimization technique. NOTE: This study was performed for the specific purposes of lung cancer screening and is not an alternative to diagnostic chest CT. RADIATION DOSE: CT dose index volume (CTDIvol) = 1.80 mGy COMPARISON: CT chest 09/24/2023 , 05/09/2023 FINDINGS: SMOKING RELATED LUNG DISEASE: Moderate centrilobular pulmonary emphysema. Minimal scarring in the medial right upper lobe is grossly similar. Minimal bandlike areas of presumed atelectasis and scarring in the left lower lobe. Minimal diffuse bronchial wall thickening. Improvement in aeration in the right middle lobe when compared to the prior study with minimal presumed atelectasis remaining medially. LUNG NODULES: Scattered calcified granulomas. Noncalcified 2 mm nodule in the lateral right upper lobe (image 74) is unchanged from 2023. The previously described cluster of nodules in the lateral right upper lobe has resolved. The previously seen subtle 2 mm nodule in the central right upper lobe (image 83) is unchanged. The previously seen left upper lobe pulmonary nodule has resolved. Noncalcified 2 mm nodule in the medial right upper lobe (image 127) is unchanged. No new nodule. CORONARY ARTERY CALCIFICATION: Absent PLEURAE: No pneumothorax or pleural effusion. MEDIASTINUM/EPHRAIM: No mediastinal or hilar lymphadenopathy. HEART: Heart size is normal with no pericardial effusion. VASCULATURE: No thoracic aortic aneurysm. AXILLA: No lymphadenopathy. CHEST WALL: No masses. No subcutaneous air. HARDWARE/LINES/TUBES: None. UPPER ABDOMEN: Prior cholecystectomy. Cyst in the left hepatic lobe is unchanged and requires no specific follow-up. MUSCULOSKELETAL: Mild thoracic spondylosis. IMPRESSION: The consolidations in the right middle lobe have nearly resolved with minimal presumed atelectasis or scarring remaining in the medial segment. Resolution of the previously seen cluster of nodules in the lateral right upper lobe and left upper lobe. Noncalcified 2 mm pulmonary nodules are unchanged from 2023. Moderate centrilobular pulmonary emphysema. Lung-RADS category 2: Benign appearance or behavior. Recommendation: Low dose Screening CT of chest in 12 months. THIS IS AN ELECTRONICALLY VERIFIED FINAL REPORT 12/26/2023 2:32 PM - Electronically signed by Kenroy Calderon M.D. T: Report ID: [id number] Reading Location: [place] [id number] Procedure Note Kenroy Calderon MD - 12/26/2023 EXAM DESCRIPTION: CT CHEST WO CONTRAST F/U LUNG SCREEN PROTOCOL REASON FOR STUDY: Screening CT of the chest in a current smoker with a 25.5 pack year smoking history. Additional history: None. TECHNIQUE: Low dose CT scan of the chest was performed without intravenous contrast using helical scanning technique. The exam extends from the lung apices through the lung bases. Automatic exposure control was used as adose optimization technique. NOTE: This study was performed for the specific purposes of lung cancer screening and is not an alternative to diagnostic chest CT. RADIATION DOSE: CT dose index volume (CTDIvol) = 1.80 mGy COMPARISON: CT chest 09/24/2023 , 05/09/2023 FINDINGS: SMOKING RELATED LUNG DISEASE: Moderate centrilobular pulmonary emphysema. Minimal scarring in the medial right upper lobe is grossly similar. Minimal bandlike areas of presumed atelectasis and scarring inthe left lower lobe. Minimal diffuse bronchial wall thickening. Improvementin aeration in the right middle lobe when compared to the prior study with minimal presumed atelectasis remaining medially. LUNG NODULES: Scattered calcified granulomas. Noncalcified 2 mm nodulein the lateral right upper lobe (image 74) is unchanged from 202. The previously described cluster of nodules in the lateral right upper lobehas resolved. The previously seen subtle 2 mm nodule in the central rightupper lobe (image 83) is unchanged. The previously seen left upper lobepulmonary nodule has resolved. Noncalcified 2 mm nodule in the medial right upperlobe (image 127) is unchanged. No new nodule. CORONARY ARTERY CALCIFICATION: Absent PLEURAE: No pneumothorax or pleural effusion. MEDIASTINUM/EPHRAIM: No mediastinal or hilar lymphadenopathy. HEART: Heart size is normal with no pericardial effusion. VASCULATURE: No thoracic aortic aneurysm. AXILLA: No lymphadenopathy. CHEST WALL: No masses. No subcutaneous air. HARDWARE/LINES/TUBES: None. UPPER ABDOMEN: Prior cholecystectomy. Cyst in the left hepatic lobe is unchanged and requires no specific follow-up. MUSCULOSKELETAL: Mild thoracic spondylosis. IMPRESSION: The consolidations in the right middle lobe have nearly resolved withminimal presumed atelectasis or scarring remaining in the medial segment. Resolution of the previously seen cluster of nodules in the lateral right upper lobe and left upper lobe. Noncalcified 2 mm pulmonary nodules are unchanged from 2023. Moderate centrilobular pulmonary emphysema. Lung-RADS category 2: Benign appearance or behavior. Recommendation: Low dose Screening CT of chest in 12 months. THIS IS AN ELECTRONICALLY VERIFIED FINAL REPORT 12/26/2023 2:32 PM - Electronically signed by Kenroy Calderon M.D. LB T: Report ID: [id number] Reading Location: [id number] Evelyn ChangTaj Butler ELECTRONIC OPERATOR IMG CT PROCEDURES Final Result * Hepatitis panel, acute (01/09/2014 6:46 AM T) HepBsAg NONREACT NONREACTIVE 01/09/2014 10:06 AM [facility] [employer] [facility], [employer] HISTORICAL RESULTS Comment: Siemens CentaurXP using LASHAE (chemiluminescent immunoassay) technology. NONREACTIVE: IgM antibodies to Hepatitis B Surface antigen not detected. REACTIVE: IgM antibodies to Hepatitis B Surface antigen detected. Reactive results will be confirmed by neutralization testing. HBsAb (immune status) NONREACT NONREACTIVE 01/09/2014 10:06 AM [facility] [employer] [facility], [employer] HISTORICAL RESULTS Comment: Siemens CentaurXP using LASHAE (chemiluminescent immunoassay) technology. NONREACTIVE: IgM antibodies to Hepatitis B Surface antibody not detected. REACTIVE: IgM antibodies to Hepatitis B Surface antibody detected. Hep B core IgM NONREACT NONREACTIVE 4 10:46 AM [facility] [employer] HISTORICAL RESULTS Comment: Siemens CentaurXP using LASHAE (chemiluminescent immunoassay) technology. NONREACTIVE: IgM antibodies to Hepatitis B Core antigen not detected. EQUIVOCAL: IgM antibodies to Hepatitis B Core antigen may or may not be present. Obtain a new specimen and retest. REACTIVE: IgM antibodies to Hepatitis B Core antigen detected. Hep A IgM NONREACT NONREACTIVE 01/09/2014 10:46 AM [facility] HISTORICAL RESULTS Comment: Siemens CentaurXP using LASHAE (chemiluminescent immunoassay) technology. NONREACTIVE: IgM antibodies to Hepatitis A not detected. This does not exclude possibility of exposure to Hepatitis A or early acute infection. EQUIVOCAL:IgM antibodies to Hepatitis A may or may not be present. Suggest recollection and retest. REACTIVE: Antibodies to Hepatitis A detected. Hep C Ab NONREACT NONREACTIVE 01/09/2014 10:46 AM [facility] HISTORICAL RESULTS Comment: Siemens CentaurXP using LASHAE (chemiluminescent immunoassay) technology. NONREACTIVE: Antibodies to Hepatitis C not detected. This does not exclude early acute Hepatitis C infection, possibility of exposure to Hepatitis C, antibodies below detection limit, or to lack of antibody reactivity to the antigen used in this assay. EQUIVOCAL: Antibodies to Hepatitis C may or may not be present. Sample to be confirmed by real-time PCR method. REACTIVE: Antibodies to Hepatitis C detected. 01/09/2014 6:46 AM CDT 01/09/2014 6:51 AM CDT Fernando Garcia DO LAB MICROBIOLOGY - [facility] AL ORDERABLES Final Result [facility] HISTORICAL RESULTS * Screening Mammogram 2D Bilateral (09/02/2012 7:42 AM FRONT END DRUPAL DEVELOPER) Anatomical Region Laterality Modality Breast Bilateral Mammography 09/02/2012 7:42 AM FRONT END DRUPAL DEVELOPER Impressions 09/02/2012 8:19 AM FRONT END DRUPAL DEVELOPER No mammographic evidence of malignancy. Recommend routine annual screening mammography. ASSESSMENT: BIRADS: 1 - Negative THIS IS AN ELECTRONICALLY VERIFIED REPORT 09/02/2012 8:16 AM: Bel Rebolledo M.D. Bel Rebolledo M.D. KL:tobin 08:16 AM 08:16 AM [EOD] Narrative 09/02/2012 8:19 AM FRONT END DRUPAL DEVELOPER EXAMINATION: Bilateral screening mammogram HISTORY: Routine screening mammography. The patient is on hormone replacement therapy. COMPARISON: Prior mammograms dated back to 02/15/09. TECHNIQUE: Bilateral digital full field of view mammography was performed, with the aid of computer aided detection (CAD). FINDINGS: The breasts are composed of scattered fatty and fibroglandular tissue. No significant masses, microcalcifications, architectural distortion or skin thickening are seen. There has been no significant interval change relative to the prior studies. Procedure Note Provider, MD Deanne - 01/16/2021 EXAMINATION: Bilateral screening mammogram HISTORY: Routine screening mammography. The patient is on hormone replacement therapy. COMPARISON: Prior mammograms dated back to 02/15/09. TECHNIQUE: Bilateral digital full field of view mammography wasperformed, with the aid of computer aided detection (CAD). FINDINGS: The breasts are composed of scattered fatty and fibroglandular tissue. No significant masses, microcalcifications, architecturaldistortion or skin thickening are seen. There has been no significant interval change relative to the prior studies. IMPRESSION: No mammographic evidence of malignancy. Recommend routine annualscreening mammography. ASSESSMENT: BIRADS: 1 - Negative THIS IS AN ELECTRONICALLY VERIFIED REPORT 09/02/2012 8:16 AM: Bel Rebolledo M.D. Bel Rebolledo M.D. KL:tobin 08:16 AM 08:16 AM [EOD] [facility] Dada Sheth MD IMG MAMMO PROCEDURES Final Result from Last 3 Months or Most Recently Relevant to Health Maintenance Insurance MEDICARE [facility] MEDICARE IDPA MEDICARE IDPA Advance Directives For more information, please contact: [phone] * Full Code (Latest Code Status on File) Date Activated Date Inactivated Comments 04/11/2020 7:55 PM 04/13/2020 3:39 PM Care Teams Client Experience Consultant Relationship Specialty Start Date End Date Ernst Osorio MD [address] [place] [address] PCP - General Emergency Medicine 06/02/19
--- OUTSIDE RECORDS SUMMARY | 2024-10-25 16:46 | XMS_ITS | Encounter Summary ---
Author Organization [facility] Address [address] [place] [address] Care Team Providers Care Podiatry Assistant Name Role Phone Ernst Osorio MD Primary Care Provider [phone] Encounter Details Date Type Department Care Team ([facility] Contact Info) Description 09/15/2023 Telephone [facility] and Hematology [facility] [address] [place] [address] Bryant Valenzuela MD [facility] [employer] [address] [place] [phone] Social History Tobacco Use Types Packs/Day Years Used Date Smoking Tobacco: Every Day Cigarettes Smokeless Tobacco: Never Alcohol Use Standard Drinks/Week Comments Not Currently 0 (1 standard drink = 0.6 oz pur e alcohol) Comments No Sex and Gender Information Value Date Recorded Sex Assigned at Not on file Legal Sex Female 2:58 PM CDT Gender Identity Not on file Sexual Orientation Not on file documented as of this encounter Plan of Treatment Upcoming Encounters Date Type Department Care Team ([facility] Contact Info) Description 11/23/2024 8:30 AM CDT Office Visit [facility] H[facility] [address] [place] [address] Bryant Valenzuela MD [facility] [employer] [address] [place] [phone] documented as of this encounter Visit Diagnoses Not on filedocumented in this encounter Care Teams Podiatry Assistant Relationship Specialty Start Date End Date Ernst Osorio MD [address] [place] [phone] PCP - General Internal Medicine 01/04/22 documented as of this encounter
--- OUTSIDE RECORDS SUMMARY | 2024-10-25 16:46 | XMS_ITS | Clinical Summary ---
Author Organization [facility] Address [address] [place] [address] Care Team Providers Care Type Cutter Name Role Phone Ernst Osorio MD Primary Care Provider [phone] Allergies Active Allergy Reactions Criticality Noted Date Comments Bee Venom Swelling Medium 01/04/2022 Latex Rash Low 09/15/2022 Penicillins Hives 09/15/2022 Tape Rash Medium 12/04/2018 Rash Rash Medications pantoprazole EC (PROTONIX) 20 MG tablet Take 20 mg by mouth daily. Active albuterol (ACCUNEB) 0.63 MG/3ML nebulizer solution Take 1 ampule by nebulization every 6 (six) hours as needed for Wheezing. Active polyethylene glycol (GLYCOLAX) packet Take 17 g by mouth daily. Dissolve powder in 240 mL water Active traMADol (ULTRAM) 50 MG tablet Take 50 mg by mouth 4 (four) times daily as needed. 2 Active Fluticasone-Ume clidin-Vilant (TRELEGY ELLIPTA) 100-62.5-25 MCG/ACT AEROSOL POWDER, BREATH ACTIVATED Inhale 1 puff into the lungs daily. 2 Active cyclobenzaprine (FLEXERIL) 5 MG tablet Take 5 mg by mouth 2 (two) times daily as needed for Muscle Spasms. Active modafinil (PROVIGIL) 200 MG tablet Take 200 mg by mouth daily as needed (Narcolepsy). Active OXYGEN by Nasal route continuous. Active Active Problems Problem Noted Date Diagnosed Date Small bowel obstruction (CMS/HCC HHS/HCC) 2022 Immunizations Name Administration Dates Next Due Fluzone 6 Months+ Quad (0.5 mL Prefilled Syringe) 09/16/2022(Deferred: Other - follow up with PCP) Social History Tobacco Use Types Packs/Day Years Used Date Smoking Tobacco: Every Day Cigarettes 0.5 43 Smokeless Tobacco: Never Tobacco Cessation:Ready to Q uit: Yes; Counseling Given: Not Answered Alcohol Use Standard Drinks/Week Comments Not Currently 0 (1 standard drink = 0.6 oz pur e alcohol) Humiliation, Afraid, Rape, and Kick questionnair e Answer Date Recorded Within the last year, have y ou been afraid of your partner or ex-partner? No 09/15/2022 Within the last year, have y ou been humiliated or emotionally abused in other ways by your partner or ex-partner? No Within the last year, have y ou been kicked, hit, slapped, or otherwise physically hurt by your partner or ex-partner? No 09/15/2022 Within the last year, have y ou been raped or forced to have any kind of sexual activity by your partner or ex-partner? No 09/15/2022 Overall Financial Resource Strain (CARDIA) Answe r Date Recorded How hard is it for you to pa y for the very basics like food, housing, medical care, and heating? Not hard at all 09/15/2022 Hunger Vital Sign Answer Date Recorded Within the past 12 months, y ou worried that your food would run out before you got the money to buy more. Never true 09/15/19 23 Within the past 12 months, t he food you bought just didn't last and you didn't have money to get more. Never true 09/15/2022 PRAPARE - Transportation Answer Date Re corded In the past 12 months, has l ack of transportation kept you from medical appointments or from getting medications? No 09/01 In the past 12 months, has l ack of transportation kept you from meetings, work, or from getting things needed for daily living? No 09/15/2022 Housing Stability Vital Sign Answer Fidel e Recorded In the last 12 months, was t here a time when you were not able to pay the mortgage or rent on time? No 09/15/2022 In the last 12 months, how many places have you lived? 1 09/15/2022 In the last 12 months, was t here a time when you did not have a steady place to sleep or slept in a senior living (including now)? No 09/15/2022 Comments No Sex and Gender Information Value Date Recorded Sex Assigned at Not on file Legal Sex Female 7:37 AM AIRCRAFT BODY REPAIRER Gender Identity Not on file Sexual Orientation Not on file Last Filed Vital Signs Vital Sign Reading Time Taken Comments Blood Pressure 141/69 09/18/2022 4:25 AM AIRCRAFT BODY REPAIRER Pulse 61 09/18/2022 4:25 AM AIRCRAFT BODY REPAIRER Temperature 36.7 C (98.1 F) 09/18/2022 4:25 AM AIRCRAFT BODY REPAIRER Respiratory Rate 18 09/18/2022 4:25 AM AIRCRAFT BODY REPAIRER Oxygen Saturation 96% 09/18/2022 9:22 AM AIRCRAFT BODY REPAIRER Inhaled Oxygen Concentration - - Weight 75.5 kg (166 lb 7.2 oz) 09/18/2022 4:25 A M AIRCRAFT BODY REPAIRER Height 157.5 cm (5' 2 ) 09/15/2022 7:45 AM AIRCRAFT BODY REPAIRER Body Mass Index 30.44 09/15/2022 7:45 AM AIRCRAFT BODY REPAIRER Plan of Treatment Health Maintenance Due Date Last Done Comments Colorectal Cancer Screening Colonoscopy (10 Years) 1958 Hepatitis C 1976 DTaP, Tdap and Td Vaccines (1 - Tdap) 1977 Mammogram Screening 1998 Zoster Vaccines (1 of 2) 2008 Dexa Scan (General) 12/03/2023 Pneumococcal Vaccine: 65+ Years (3 of 3 - PPSV23 or PCV20) 12/03/2023 08/16/2016, 02/05/2015 Pneumococcal Vaccine: Pediatrics (0 to 5 Years) and At-Risk Patients (6 to 64 Years) (3 of 3 - PPSV23 or PCV20) 12/03/2023 08/16/2016, 02/05/2015 COVID-19 Vaccine (3 - season) 2024 11/17/2020, 10/29/2020 Influenza Adult (#1) 2024 06/30/2020, 07/09/2019, 08/03/2018, Additional history exists RSV Immunization or 60+ Years (1 - 1-dose 75+ series) 2033 Meningococcal B Vaccine Aged Out No l onger eligible based on patient's age to complete this topic Meningococcal Vaccine Aged Out No chantel ronen eligible based on patient's age to complete this topic RSV Immunizations Under 20 Months Aged Out No longer eligible based on patient's age to complete this topic Goals Goal Patient Goal Type Associated Problems Recent Progress Patient-Stated? Author Family - family caregiver with be involved in care transitions and discharge planning Lifestyle No Bing Cross, IVF EMBRYOLOGISThospital coordinator [place] [address] Advance Directives * Full Code (Latest Code Status on File) Date Activated Date Inactivated Comments 09/15/2022 12:16 PM 09/18/2022 2:58 PM Care Teams Type Cutter Relationship Specialty Start Date End Date Ernst Osorio MD [address] [place] [address] PCP - General INTERNAL MEDICINE 09/16/22
--- OUTSIDE RECORDS SUMMARY | 2024-10-25 16:46 | XMS_ITS | Encounter Summary ---
Author Organization [facility] Care Team Providers Care Intelligence Specialist Name Role Phone Mary Pitts LPN Unavailable [phone] Ernst Osorio MD Primary Care Provide r Encounter Details Date Type Department Care Team (Latest Contact Info) Description 01/26/2016 Orders Only [facility] CLINCONV ProviderDeanne MD [address] [place] [id number] Social History Tobacco Use Types Packs/Day Years Used Date Smoking Tobacco: Never Assessed Comments Unknown Sex and Gender Information Value Date Recorded Sex Assigned at Not on file Legal Sex Female 7:58 AM METAL CHECKER Gender Identity Not on file Sexual Orientation Not on file documented as of this encounter Plan of Treatment Not on file documented as of this encounter Procedures Procedure Name Priority Date/Time Associated Diagnosis Comments PROCEDURE - RESULT 02/08/2016 12 :00 AM CDT documented in this encounter Results * PROCEDURE - RESULT (02/08/2016 12:00 AM CDT) Narrative 02/08/2016 12:00 AM CDT Ordered by an unspecified provider. Historical Provider Final Res ult documented in this encounter Visit Diagnoses Not on filedocumented in this encounter Care Teams Intelligence Specialist Relationship Specialty Start Date End Date Ernst Osorio MD [address] [place] [address] PCP - General Emergency Medicine 06/02/19 Mary Pitts, WHEAT INSPECTOR [address] [place] [phone] Fur Polisher 07/08/17 07/08/17 documented as of this encounter
--- OUTSIDE RECORDS SUMMARY | 2024-10-25 16:47 | XMS_ITS | Clinical Summary ---
Author Organization [facility]ires Address [address] [place] [address] Care Team Providers Care Terrazzo Polisher Name Role Phone Ernst Osorio MD Primary Care Provider [phone] Allergies Active Allergy Reactions Criticality Noted Date Comments Adhesive Tape-Silicones Rash Medium 12/04/2018 Rash Latex Rash Low 01/04/2022 Penicillins Hives High 01/04/2022 Venom-Honey Bee Swelling Low 01/04/2022 Medications albuterol sulfate 90 mcg/Actuation inhaler INHALE 2 PUFFS BY MOUTH EVERY 6 HOURS NEEDED FOR WHEEZING OR SHORTNESS OF BREATH 2 Active pantoprazole (PROTONIX) 20 mg Tablet, Delayed Release (E.C.) Take 20 mg by mouth daily in the morning. 2 Active traMADoL (ULTRAM) 50 mg tablet Take 50 mg by mouth every 6 hours as needed. 2 Active fluconazole (DIFLUCAN) 150 mg tablet TAKE 1 TABLET BY MOUTH NOW. REPEAT IN 1 WEEK 2 Active Active Problems Problem Noted Date Diagnosed Date Iron deficiency anemia 01/04/2022 Other dietary vitamin B12 deficiency anemia 01/2022 Encounters Date Type Department Care Team Description 10/19/2024 External Device Data STL ABSTRACTION Provider, Abstract 09/21/2024 External Device Data STL ABSTRACTION Provider, Abstract 09/14/2024 External Device Data STL ABSTRACTION Provider, Abstract 09/07/2024 External Device Data STL ABSTRACTION Provider, Abstract 08/03/2024 8:30 AM LIBRARY MONITOR Office Visit [facility] Oncology and Hematology - Bhupendra [address] [place] [address] Bryant Valenzuela MD Chronic anemia (Primary Dx) 08/03/2024 Orders Only [facility] On[facility] and Hematology - Bhupendra [address] [place] [address] Bryant Valenzuela MD 08/02/2024 Telephone [facility] Oncology and Hematology - Bhupendra [address] [place] [phone] Bryant Valenzuela MD appointment reminder and lab work reminder from Last 3 Months Family History Relation Name Status Comments Brother 1 Brother 2 Father Mother Sister 1 Alive Sister 2 Alive Son 1 Alive Son 2 Alive Son 3 Alive Son 4 Alive Son 5 Alive Social History Tobacco Use Types Packs/Day Years Used Date Smoking Tobacco: Every Day Cigarettes 0.5 30.5 Started: 04/13/1994 Smokeless Tobacco: Never Tobacco Cessation:Ready to Q uit: Not Asked; Counseling Given: Not Answered Alcohol Use Standard [...] Sign Reading Time Taken Comments Blood Pressure 187/96 08/03/2024 8:36 AM LIBRARY MONITOR just took bp meds Pulse 71 08/03/2024 8:32 AM LIBRARY MONITOR Temperature 36.6 C (97.8 F) 08/03/2024 8:32 AM LIBRARY MONITOR Respiratory Rate 15 08/03/2024 8:32 AM LIBRARY MONITOR Oxygen Saturation 90% 08/03/2024 8:3 2 AM LIBRARY MONITOR Inhaled Oxygen Concentration - - Weight 70.8 kg (156 lb) 08/03/2024 8:32 AM LIBRARY MONITOR Height 157.5 cm (5' 2 ) 05/17/2022 9:17 AM CDT Body Mass Index 28.53 05/17/2022 9:17 AM CDT Plan of Treatment Upcoming Encounters Date Type Department Care Team (Late st Contact Info) Description 11/23/2024 8:30 AM CDT Office Visit [facility] Oncology and Hematology - Bhupendra [address] [place] [address] Bryant Valenzuela MD [address] [facility] [address] [place] [address] Health Maintenance Due Date Last Done Comments Pre-Diabetes and Diabetes Screening 1960 DTAP/TDAP/TD VACCINES (1 - Tdap) 1977 FIT-DNA Q 3 years 12/03/2003 FIT/FOBT Q 1 year 12/03/2003 Flex Sig/CT Colonography Q 5 years 12/03/2003 ZOSTER VACCINE (1 of 2) 2008 BREAST CANCER SCREENING 11/24/2014 11/24/2013, 09/02 RSV VACCINE (60+ or ) (1 - Risk 60-74 years 1-dose series) 2018 PNEUMOCOCCAL VACCINE 65+ YEA RS (3 of 3 - PCV20 or PCV21) 08/16/2021 08/16/2016, 02/05/2015 OSTEOPOROSIS SCREENING 12/03/2023 INFLUENZA VACCINE (#1) 2024 0, 07/09/2019, 07/05/2019, Additional history exists COLORECTAL SCREENING 07/28/2033 07/28/2023, 04/05/20 21 Colorectal Cancer Screening 07/28/2033 Procedures Procedure Name Priority Date/Time Associated Diagnosis Comments IRON LEVEL Routine 08/02/2024 1:33 PM LIBRARY MONITOR CBC WITH DIFFERENTIAL Routine 08/02/2024 11:09 AM LIBRARY MONITOR from Last 3 Months Results * IRON LEVEL (08/02/2024 1:33 PM LIBRARY MONITOR) Blood us Bryant Valenzuela MD CHEMISTRY ORDERABLES Final Resu lt * CBC WITH DIFFERENTIAL (08/02/2024 11:09 AM LIBRARY MONITOR) Blood Bryant Valenzuela MD HEMATOLOGY ORDERABLES Final Res ult from Last 3 Months Insurance MEDICARE PART A [place]IC[place] Care Teams Terrazzo Polisher Relationship Specialty Start Date End Date Ernst Osorio MD [address] [place] [address] PCP - General Internal Medicine 01/04/22
--- OUTSIDE RECORDS SUMMARY | 2024-10-25 16:47 | XMS_ITS | Clinical Summary ---
Author Organization [facility] Address [address] [place] [address] Care Team Providers Care Health Program Director Name Role Phone Ernst Osorio MD Primary Care Provide r Allergies Active Allergy Reactions Criticality Noted Date Comments Adhesive Tape-Silicones Rash Medium 12/04/2018 Rash Amoxicillin Hives Medium 12/04/2018 hives Latex Rash Medium 01/04/2022 Penicillins Hives Medium 04/11/2020 Venom-Honey Bee Swelling Medium 01/04/2022 Medications docusate sodium (DOK) 100 mg tabletIndicatio ns:constipation Take 3 tablets (300 mg total) by mouth math instructor before breakfast Active DULoxetine DR (CYMBALTA) 30 [...] 09/03/2024 Assessment & Plan (09/03/2024 10:53 AM CLEANING PROFESSIONAL): Due to continued symptoms, patient continue oxygen 2.5 L with activity and the patient will continue 2 L of oxygen via nasal cannula at night while sleeping 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 The patient was informed that untreated sleep apnea and also Chronic obstructive pulmonary disease can lead to pulmonary hypertension. Primary hypertension 09/26/2023 Assessment & Plan (12/31/2023 8:53 AM CDT): Will continue to follow with PCP Assessment & Plan (09/26/2023 8:43 AM CLEANING PROFESSIONAL): I have ordered an echocardiogram. Lung nodules 05/21/2023 Assessment & Plan (09/03/2024 10:53 AM CLEANING PROFESSIONAL): CT scan ordered for November of 2024 Assessment & Plan (12/31/2023 8:53 AM CDT): Patient continues to have pulmonary nodules monitored by CT scanning. A CT scan has been ordered for November of 2024 Assessment & Plan (09/26/2023 8:43 AM CLEANING PROFESSIONAL): I have ordered another CT scan for [...] (03/15/2020): Added automatically from request for surgery [id number] Tobacco abuse 03/08/2020 Assessment & Plan (09/03/2024 10:52 AM CLEANING PROFESSIONAL): The patient has been encouraged to decrease smoking. The patient has a CT scan ordered for November of 2024 Assessment & Plan (12/31/2023 8:54 AM CDT): The patient recently resumed smoking. I did encourage the patient to continue to try to quit smoking. A lung cancer screening CTs been ordered for November of 2024 Assessment & Plan (09/26/2023 8:43 AM CLEANING PROFESSIONAL): The patient has stopped smoking on August 11, 2023. Assessment & Plan (10/23/2022 9:32 AM CLEANING PROFESSIONAL): Patient will continue to try to decrease [...] 02/28/2021. Assessment & Plan (09/13/2020 10:12 AM CLEANING PROFESSIONAL): The patient was educated on the need [...] 02/28/2016 Assessment & Plan (09/03/2024 10:51 AM CLEANING PROFESSIONAL): Due to ongoing symptoms, the patient will [...] cough Assessment & Plan (09/26/2023 8:41 AM CLEANING PROFESSIONAL): Patient continue to use Trelegy one inhalation [...] activity. Assessment & Plan (10/23/2022 9:31 AM CLEANING PROFESSIONAL): Will continue with Trelegy. The patient has [...] Advair. Assessment & Plan (09/13/2020 10:10 AM CLEANING PROFESSIONAL): The patient will continue with Advair as [...] basis. Assessment & Plan (09/03/2024 10:51 AM CLEANING PROFESSIONAL): Due to continued symptoms, the patient will continue with Provigil 200 mg on a p.r.n. basis/daily Assessment & Plan (12/31/2023 8:52 AM CDT): The patient will continue with Provigil 200 mg daily/p.r.n.. I have refilled the medication I will refill for 1 year Assessment & Plan (09/26/2023 8:41 AM CLEANING PROFESSIONAL): The patient continues to use Nuvigil 150 mg as a p.r.n. basis. The patient states she only uses it if she is very tired during the day are goes on long drives. Assessment & Plan (05/21/2023 10:18 AM CDT): The patient's hypersomnia is under control with Provigil 200 mg in the morning. Assessment & Plan (10/23/2022 9:31 AM CLEANING PROFESSIONAL): Will continue Provigil 200 mg in the morning and on a p.r.n. basis. I have reordered the medication. Assessment & Plan (03/14/2021 9:30 AM CDT): The patient continues to benefit from Provigil 200 mg q.a.m. Assessment & Plan (09/13/2020 10:11 AM CLEANING PROFESSIONAL): The patient will continue with Provigil 200 [...] cannula. Assessment & Plan (09/03/2024 11:18 AM CLEANING PROFESSIONAL): The patient is going to try to CPAP once again. The patient has 2 L of oxygen that she will need to bleed into the circuit. Assessment & Plan (12/31/2023 8:53 AM CDT): The patient is intolerant of CPAP. She uses 2 L of oxygen p.r.n.. The patient is utilizing positional therapy Assessment & Plan (09/26/2023 8:42 AM CLEANING PROFESSIONAL): The patient continues to use positional therapy. [...] sleeping. Assessment & Plan (10/23/2022 9:31 AM CLEANING PROFESSIONAL): I encouraged the patient to resume CPAP therapy. She is currently practicing positional therapy with 2 L of oxygen via nasal cannula while sleeping. DME [facility] Assessment & Plan (02/01/2022 12:34 PM CDT): The patient was encouraged to resume the use of her CPAP. She continues to use 2 L of oxygen at night while sleeping. Her DME is [facility] patient. The patient is going to [...] night. Assessment & Plan (09/13/2020 10:11 AM CLEANING PROFESSIONAL): The patient was educated on the need [...] q.h.s. Assessment & Plan (09/03/2024 10:52 AM CLEANING PROFESSIONAL): Due to continued symptoms, the patient will continue Requip 1 mg nightly Assessment & Plan (12/31/2023 8:53 AM CDT): The patient will continue with ropinirole 1 mg and iron supplementation. I have refilled the ropinirole and will refill for 1 year Assessment & Plan (09/26/2023 8:42 AM CLEANING PROFESSIONAL): The patient already restart to use Requip 1 mg p.o. Q HS Assessment & Plan (05/21/2023 10:19 AM CDT): The PLMS are under control with Requip 1 mg at bedtime. Assessment & Plan (10/23/2022 9:32 AM CLEANING PROFESSIONAL): The patient will continue Requip 1 mg [...] night Assessment & Plan (09/13/2020 10:12 AM CLEANING PROFESSIONAL): The patient will continue with Requip 1 mg p.o. at bedtime to manage her periodic limb movement disorder. Assessment & Plan (03/08/2020 9:50 AM CDT): The patient will continue to take Requip 1 mg at bedtime. Patient states she is currently asymptomatic on this medical treatment. Encounters Date Type Department Care Team Description 09/03/2024 10:15 AM CLEANING PROFESSIONAL Office Visit [facility] Pulmonology [address] [address] Letty Heart NP Centrilobular emphysema (HCC) (Primary Dx); Hypersomnia; Obstructive sleep apnea; Periodic limb movement disorder; Tobacco abuse; Lung nodules; Enlarged pulmonary artery (HCC); Hypoxemia from Last 3 Months Immunizations Immunization Administration Dates Next Due Influenza, Quadrivalent, Spl it, Intramuscular 07/09/2019,08/16/2016 Influenza, Quadrivalent, Spl it, Preservative Free, Intramuscular 06/30/2020,07/05/2019,08/03/2018 Influenza, Trivalent, IM (MDV) 07/02/2017 Pneumococcal Conjugate PCV 13 02/05/2015 Pneumococcal Polysaccharide PPV23 08/16/2016 Surgical History Surgery Date Site/Laterality Comments CHOLECYSTECTOMY TONSILLECTOMY HYSTERECTOMY SMALL BOWEL RESECTION NECK SURGERY @ [place] APPENDECTOMY 08/12/2023 SMALL INTESTINE SURGERY 08/01/2023 - 08/31/2023 partial removal Medical History Medical History Date Comments Cigarette nicotine dependence in remission 08/16 COPD (chronic obstructive pulmonary disease) (HC C) Sleep apnea Family History Medical History Relation Name Comments No Known Problems Father Emphysema Mother Anesthesia problems Neg Hx Relation Name Status Comments Father Mother Social History Tobacco Use Types Packs/Day Years [...] on file Legal Sex Female 7:58 AM CLEANING PROFESSIONAL Gender Identity Not on file Sexual Orientation Not on file Obstetrics History Last Filed Vital Signs Vital Sign Reading Time Taken Comments Blood Pressure 156/87 09/03/2024 10:49 AM CLEANING PROFESSIONAL Pulse 69 09/03/2024 10:49 AM CLEANING PROFESSIONAL Temperature 36 C (96.8 F) 09/03/2024 10:49 AM CLEANING PROFESSIONAL Respiratory Rate 18 09/03/2024 10:49 AM CLEANING PROFESSIONAL Oxygen Saturation 94% 09/03/2024 10:49 AM CLEANING PROFESSIONAL Inhaled Oxygen Concentration - - Weight 70.3 kg (155 lb) 09/03/2024 10:49 AM CLEANING PROFESSIONAL Height 157.5 cm (5' 2.01 ) 09/03/2024 10:[address] Body Mass Index 28.34 09/03/2024 10:49 AM CLEANING PROFESSIONAL Plan of Treatment Health Maintenance Due Date Last Done Comments Colon Cancer Screening-Colonoscopy 1960 Depression Screening 1960 Osteoporosis Screening-Bone Density Scan 1960 DTaP/Tdap/Td Vaccine (1 - Tdap) 1969 Hepatitis B Screening 1976 Zoster Vaccine (1 of 2) 2008 Breast Cancer Screening-Mammogram 09/02/2013 013 Fall Risk Assessment 04/13/2021 04/13/2020 Pneumococcal vaccine 65+ (3 of 3 - PCV20 or PCV21) 08/16/2021 08/16/2016, 02/05/2015 Well Visit 65+ 12/03/2023 Influenza Vaccine (#1) 2024 , 07/09/2019, 07/05/2019, Additional history exists Lung Cancer Screening 12/26/2024 12/26/2023 , 09/24/2023, 05/09/2023, Additional history exists Hepatitis C Screening Completed 01/09/2014 Medical Devices Implanted Type Area Sternman Device Identifier Shelf Expiration Date Model / Serial / Lot Medtronic Sofamor Danek [id number] Centerpiece 10mm Lateral Hole Open Door Color Coded Spine - [id number] Implanted:Qty: 3 on 04/11/2020 by Brandon rPyor MD at [facility] N/A: Spine Cervical Medtronic Inc [id number] / / Medtronic Sofamor Danek [id number] Centerpiece 2.6mm 7mm Self Tap Stab Grab Color Coded Spine Screw - [id number] Implanted:Qty: 6 on 04/11/2020 by Brandon Pryor MD at [facility] N/A: Spine Cervical Medtronic Inc [id number] / / Medtronic Sofamor Danek [id number] Centerpiece 2.6mm 5mm Self Tap Stab Grab Color Coded Spine Screw - [id number] Implanted:Qty: 6 on 04/11/2020 by Brandon Pryor MD at [facility] N/A: Spine Cervical Medtronic Inc [id number] / / Procedures Procedure Name Priority Date/Time Associated Diagnosis Comments CT CHEST WO CONTRAST F/U LUNG SCREEN PROTOCOL Schedule Routine, Read Routine (OP Routine) 12/26/2023 8:27 AM CDT Lung nodules HEPATITIS PANEL, ACUTE Routine 01/09/2014 6:46 AM CDT SCREENING MAMMOGRAM 2D BILATERAL Routine 09/02/2012 7:42 AM CLEANING PROFESSIONAL from Last 3 Months or Most Recently [...] 2 mm pulmonary nodules are unchanged from 2022. Moderate centrilobular pulmonary emphysema. Lung-RADS category 2: Benign appearance or behavior. Recommendation: Low dose Screening CT of chest in 12 months. THIS IS AN ELECTRONICALLY VERIFIED FINAL REPORT 12/26/2023 2:32 PM - Electronically signed by Kenroy Calderon M.D. LB T: Report ID: [id number] Reading Location: [place] [address] Procedure Note Kenroy Calderon MD - 12/26/2023 [...] 2:32 PM - Electronically signed by Kenroy NINO T: Report ID: [id number] Reading Location: [place] [address] Evelyn Butler NP [facility] CT PROCEDURES Final Result * Hepatitis panel, acute (01/09/2014 6:46 AM CDT) HepBsAg NONREACT NONREACTIVE 01/09/2014 10:06 AM CDT [facility] HISTORICAL RESULTS Comment: Siemens C8 MediSensorsaurXP using LASHAE (chemiluminescent immunoassay) technology. NONREACTIVE: IgM antibodies to Hepatitis B Surface antigen not detected. REACTIVE: IgM antibodies to Hepatitis B Surface antigen detected. Reactive results will be confirmed by neutralization testing. HBsAb (immune status) NONREACT NONREACTIVE Comment: Siemens CentaurXP using LASHAE (chemiluminescent immunoassay) technology. NONREACTIVE: IgM antibodies to Hepatitis B Surface antibody not detected. REACTIVE: IgM antibodies to Hepatitis B Surface antibody detected. Hep B core IgM NONREACT NONREACTIVE 4 10:46 AM [facility] HISTORICAL RESULTS Comment: Siemens CentaurXP using LASHAE (chemiluminescent immunoassay) technology. NONREACTIVE: IgM antibodies to Hepatitis B Core antigen not detected. EQUIVOCAL: IgM antibodies to Hepatitis B Core antigen may or may not be present. Obtain a new specimen and retest. REACTIVE: IgM antibodies to Hepatitis B Core antigen detected. Hep A IgM NONREACT NONREACTIVE Comment: Siemens CentaurXP using LASHAE (chemiluminescent immunoassay) technology. NONREACTIVE: IgM antibodies to Hepatitis A not detected. This does not exclude possibility of exposure to Hepatitis A or early acute infection. EQUIVOCAL:IgM antibodies to Hepatitis A may or may not be present. Suggest recollection and retest. REACTIVE: Antibodies to Hepatitis A detected. Hep C Ab NONREACT NONREACTIVE Comment: Siemens CentaurXP using LASHAE (chemiluminescent immunoassay) [...] CDT Fernando Garcia DO LAB MICROBIOLOGY - GENER AL ORDERABLES Final Result [facility] HISTORICAL RESULTS * Screening Mammogram 2D Bilateral (09/02/2012 7:42 AM CLEANING PROFESSIONAL) Anatomical Region Laterality Modality Breast Bilateral Mammography 09/02/2012 7:42 AM CLEANING PROFESSIONAL Impressions 09/02/2012 8:19 AM CLEANING PROFESSIONAL No mammographic evidence of malignancy. Recommend routine annual screening mammography. ASSESSMENT: BIRADS: 1 - Negative THIS IS AN ELECTRONICALLY VERIFIED REPORT 09/02/2012 8:16 AM: Bel Rebolledo M.D. Bel Rebolledo M.D. KL:tobin 08:16 AM 08:16 AM [EOD] Narrative 09/02/2012 8:19 AM CLEANING PROFESSIONAL EXAMINATION: Bilateral screening mammogram HISTORY: Routine screening [...] M.D. KL:tobin 08:16 AM 08:16 AM [EOD] Gama Dada Sheth MD IMG MAMMO PROCEDURES Final Result from Last 3 Months or Most Recently Relevant to Health Maintenance Insurance MEDICARE [facility] MEDICARE IDPA MEDICARE IDPA Advance Directives For more information, please contact: [phone] * Full Code (Latest Code Status on File) Date Activated Date Inactivated Comments 04/11/2020 7:55 PM 04/13/2020 3:39 PM Care Teams Health Program Director Relationship Specialty Start Date End Date Ernst Osorio MD [address] [place] [address] PCP - General Emergency Medicine 06/02/19
== END 2024-10-25 14:23 | disposition home or self-care (01) ==
LOC: ANHIMG 14:24
PROVIDERS: PCP Emergency Medicine; Visit Provider Emergency Medicine
DX: Z12.31 Encounter for screening mammogram for malignant neoplasm of breast (principal)
CPT/HCPCS: 77063; 77067

== ENCOUNTER 2024-12-24 07:25 | Outpatient (CLI) | payer MEDICARE, MEDICAID, SELFPAY ==
--- NOTE | ~2024-12-24 | DEXA_ITS ---
Bone Density Report Name: SELENA LEONARD Age: 64 Sex: Female Ethnicity: White Date of : 1960 Indication: postmenopausal; screening for osteoporosis; hysterectomy; Referring Provider: JUAN LUIS KEYES Study: Bone densitometry was performed. Exam Date: December 24, 2024 Accession number: [id number] Bone Density: Region BMD T-score Z-score Classification AP Spine(L1-L4) 0.790 -2.3 -0.5 Osteopenia Femoral Neck (Left) 0.517 -3.0 -1.4 Osteoporosis Total Hip (Left) 0.695 -2.0 -0.7 Osteopenia Femoral Neck (Right) 0.478 -3.3 -1.8 Osteoporosis Total Hip (Right) 0.712 -1.9 -0.6 Osteopenia Total Hip Mean 0.703 -2.0 -0.7 Osteopenia World Health Organization criteria for BMD impression classify patients as: Normal (T-score at or above -1.0), Osteopenia (T-score between -1.0 and -2.5), or Osteoporosis (T-score at or below -2.5). 10-year Fracture Risk: FRAX not reported because: Some T-score for Spine Total or Hip Total or Femoral Neck at or below -2.5 Clinical Information Provided by Patient: Smokes Has the following medical conditions: Hysterectomy Patient maximum height was 63 Menopause Age: 53 No regular weight bearing exercise Drinks caffeinated beverages Onset of menses at age 10 Number of children 5 Impression: The patient has osteoporosis, based on the Right Femoral Neck T-score. The patient has risk factors, including: smoking. Discussion: INCREASED RISK OF FRACTURE. BONE DENSITY IS UNDESIRABLY LOW AT ONE OR MORE SKELETAL SITES, CONSISTENT WITH POSTMENOPAUSAL OSTEOPOROSIS. This patient's lowest T-score meets the World Health Organization's (WHO) criteria for osteoporosis at one or more sites (T-score -2.5 or below). In untreated patients, the risk of osteoporotic fracture increases approximately two-fold for each 1.0 SD decrease in T-score. Low bone density is not the only risk factor for fracture; also consider factors such as patient's age, frailty or poor health, risk of falling, risk of injury, previous osteoporotic fracture, family history of osteoporosis, cigarette smoking, low body weight, etc. Not everyone with low bone mineral density has osteoporosis; osteomalacia and other metabolic bone disorders should also be considered. Patients who have osteoporosis should be evaluated for specific diseases and conditions (secondary causes) that may cause or contribute to bone loss. The [place] [employer] of Clinical Endocrinologists (AACE) and National Osteoporosis Foundation (NOF) recommend pharmacologic intervention for all postmenopausal women whose T-score is in this range. The patient should follow a healthful lifestyle (good nutrition with adequate calcium and vitamin D, and appropriate weight-bearing exercise). Follow-Up: Consider a repeat BMD and Vertebral Fracture Assessment (VFA) exam in 2 years or sooner if medically necessary, to reassess this patient's status. Reported by: SUSIE on 12/24/2024 7:58:00 AM. Reviewed, dictated and finalized at location A. [facility] CENTERMeghan
--- OUTSIDE RECORDS SUMMARY | 2024-12-24 07:29 | XMS_ITS | Encounter Summary ---
Author Organization [facility] Care Team Providers Care Python Web Developer Name Role Phone Mary Pitts LPN Unavailable [phone] Ernst Osorio MD Primary Care Provide r Encounter Details Date Type Department Care Team (Latest Contact Info) Description 01/26/2016 Orders Only [facility] CLINCONV ProviderDeanne MD [address] [place] [id number] Social History Tobacco Use Types Packs/Day Years Used Date Smoking Tobacco: Never Assessed Comments Unknown Sex and Gender Information Value Date Recorded Sex Assigned at Not on file Legal Sex Female 7:58 AM CARD FIXER Gender Identity Not on file Sexual Orientation [...] on filedocumented in this encounter Care Teams Python Web Developer Relationship Specialty Start Date End Date Ernst Osorio MD [address] [place] [address] PCP - General Emergency Medicine 06/02/19 Mary Pitts, HALEY [address] [place] [address] Cutter Aluminum Sheet 07/08/17 07/08/17 documented as of this encounter
--- OUTSIDE RECORDS SUMMARY | 2024-12-24 07:29 | XMS_ITS | Encounter Summary ---
Author Organization [facility] [employer] [facility] Address [address] [place] [address] Care Team Providers Care Frame Cleaner Name Role Phone Ernst Osorio MD Primary Care Provider [phone] Encounter Details Date Type Department Care Team ([facility] Contact Info) Description 09/15/2023 Telephone [facility] Oncology and Hematology Bhupendra [address] [place] [address] Bryant Valenzuela MD [address] [place], [place] [address] [address] [place] [phone] Social History Tobacco Use Types Packs/Day [...] Encounters Date Type Department Care Team (Late Contact Info) Description 05/26/2025 8:30 AM CDT Office Visit [facility] Oncology and Hematology - Bhupendra [address] [place] [address] Bryant Valenzuela MD [address] [place] [phone] documented as of this encounter Visit Diagnoses Not on filedocumented in this encounter Care Teams Frame Cleaner Relationship Specialty Start Date End Date Ernst Osorio MD [address] [place] [phone] PCP - General Internal Medicine 01/04/22 documented as of this encounter
--- OUTSIDE RECORDS SUMMARY | 2024-12-24 07:29 | XMS_ITS | Referral Summary ---
Author Organization [facility] Address [address] [place] [address] Care Team Providers Care Medical Unit Secretary Name Role Phone Ernst Osorio MD Primary Care Provide r Encounters Date Type Department Care Team Description 12/17/2024 10:15 AM CDT Office Visit [facility] Pulmonology [address] [place] [address] [address] [place] [address] Evelyn Butler NP Centrilobular emphysema (HCC) (Primary Dx); Hypersomnia; Obstructive sleep apnea; Tobacco abuse; Lung nodules; Hypoxemia; Enlarged pulmonary artery (HCC); Periodic limb movement disorder 11/29/2024 Telephone [facility] Medical [facility] Pulmonology [address] [place] [address] [address] [place] [address] Letty Heart NP from Last 3 Months Allergies Active Allergy Reactions Criticality Noted Date Comments Adhesive Tape-Silicones Rash Medium 12/04/2018 Rash Amoxicillin Hives Medium 12/04/2018 hives Latex Rash Medium 01/04/2022 Penicillins Hives Medium 04/11/2020 Venom-Honey Bee Swelling Medium 01/04/2022 Medications docusate sodium (DOK) 100 mg tabletIndicatio ns:constipation Take 3 tablets (300 mg total) by mouth client support administrator before breakfast Active DULoxetine DR (CYMBALTA) 30 [...] muscle spasms 30 tablet 1 0 Active Additional Information Patient not taking.Reported on 12/17/2024 meloxicam (MOBIC) 15 mg tablet TK 1 [...] mouth nightly 90 tablet 3 4 Active Additional Information Patient not taking.Reported on 12/17/2024 fluticasone propionate (FLONASE) 50 mcg/actuation nasal sprayIndication s:Centrilobular emphysema (HCC) SHAKE LIQUID AND USE 2 SPRAYS IN EACH NOSTRIL DAILY 16 g 6 4 Active modafiniL (PROVIGIL) 200 mg tabletIndicatio ns:Sleepiness Due To Obstructive Sleep Apnea Take 1 tablet (200 mg total) by mouth daily 90 tablet 3 5 Active Additional Information Patient not taking.Reported on 12/17/2024 albuterol HFA (PROVENTIL HFA,VENTOLIN HFA,PROAIR HFA) 90 mcg/actuation inhalerIndicati ons:Centrilobul ar emphysema (HCC) INHALE 2 PUFFS BY MOUTH EVERY 6 HOURS NEEDED FOR WHEEZING. 25.5 g 3 5 Active Trelegy Ellipta 100-62.5-25 mcg inhaler INHALE 1 PUFF BY MOUTH DAILY 60 each 3 5 Active doxycycline (doxycycline hyclate) 100 mg capsuleIndicati ons:Upper Respiratory/JULIET NT Infection Take 1 tablet/capsule (100 mg total) by mouth 2 (two) times a day for 7 days 14 tablet/capsu le 5 12/25/19 25 Active methylPREDNISol one (Medrol, Qasim,) 4 mg Dosepack follow package directions 1 packet 5 Active Active Problems Problem Noted Date Diagnosed Date Hypoxemia 09/03/2024 Assessment & Plan (09/03/2024 10:53 AM VP PRODUCT): Due to continued symptoms, patient continue oxygen 2.5 L with activity and the patient will continue 2 L of oxygen via nasal cannula at night while sleeping 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 The patient was informed that untreated sleep apnea and also Chronic obstructive pulmonary disease can lead to pulmonary hypertension. Primary hypertension 09/26/2023 Assessment & Plan (12/31/2023 8:53 AM CDT): Will continue to follow with PCP Assessment & Plan (09/26/2023 8:43 AM VP PRODUCT): I have ordered an echocardiogram. Lung nodules 05/21/2023 Assessment & Plan (12/17/2024 10:44 AM CDT): The patient has a CAT scan on December 27, 2024. Assessment & Plan (09/03/2024 10:53 AM VP PRODUCT): CT scan ordered for November of 2024 Assessment & Plan (12/31/2023 8:53 AM CDT): Patient continues to have pulmonary nodules monitored by CT scanning. A CT scan has been ordered for November of 2024 Assessment & Plan (09/26/2023 8:43 AM VP PRODUCT): I have ordered another CT scan for [...] (03/15/2020): Added automatically from request for surgery [id number] Tobacco abuse 03/08/2020 Assessment & Plan (12/17/2024 10:44 AM CDT): The patient has a CAT scan scheduled on December 27, 2024. Assessment & Plan (09/03/2024 10:52 AM VP PRODUCT): The patient has been encouraged to decrease smoking. The patient has a CT scan ordered for November of 2024 Assessment & Plan (12/31/2023 8:54 AM CDT): The patient recently resumed smoking. I did encourage the patient to continue to try to quit smoking. A lung cancer screening CTs been ordered for November of 2024 Assessment & Plan (09/26/2023 8:43 AM VP PRODUCT): The patient has stopped smoking on August 11, 2023. Assessment & Plan (10/23/2022 9:32 AM VP PRODUCT): Patient will continue to try to decrease [...] 02/28/2021. Assessment & Plan (09/13/2020 10:12 AM VP PRODUCT): The patient was educated on the need [...] again. Centrilobular emphysema 02/28/2016 Assessment & Plan (12/17/2024 11:12 AM CDT): Patient continue with Trelegy one inhalation once a day. The patient will continue with albuterol as needed up to 4 times a day for shortness of breath. Due to the patient having a cough that is productive of yellow sputum I have ordered doxycycline 100 mg p.o b.i.d. x7 days along with a Medrol Dosepak. Assessment & Plan (09/03/2024 10:51 AM VP PRODUCT): Due to ongoing symptoms, the patient will [...] cough Assessment & Plan (09/26/2023 8:41 AM VP PRODUCT): Patient continue to use Trelegy one inhalation [...] activity. Assessment & Plan (10/23/2022 9:31 AM VP PRODUCT): Will continue with Trelegy. The patient has [...] Advair. Assessment & Plan (09/13/2020 10:10 AM VP PRODUCT): The patient will continue with Advair as [...] on a p.r.n. basis. Assessment & Plan (12/17/2024 11:12 AM CDT): I will hold off on refilling the Provigil until she is more compliant with CPAP. Assessment & Plan (09/03/2024 10:51 AM VP PRODUCT): Due to continued symptoms, the patient will continue with Provigil 200 mg on a p.r.n. basis/daily Assessment & Plan (12/31/2023 8:52 AM CDT): The patient will continue with Provigil 200 mg daily/p.r.n.. I have refilled the medication I will refill for 1 year Assessment & Plan (09/26/2023 8:41 AM VP PRODUCT): The patient continues to use Nuvigil 150 mg as a p.r.n. basis. The patient states she only uses it if she is very tired during the day are goes on long drives. Assessment & Plan (05/21/2023 10:18 AM CDT): The patient's hypersomnia is under control with Provigil 200 mg in the morning. Assessment & Plan (10/23/2022 9:31 AM VP PRODUCT): Will continue Provigil 200 mg in the morning and on a p.r.n. basis. I have reordered the medication. Assessment & Plan (03/14/2021 9:30 AM CDT): The patient continues to benefit from Provigil 200 mg q.a.m. Assessment & Plan (09/13/2020 10:11 AM VP PRODUCT): The patient will continue with Provigil 200 [...] oxygen via nasal cannula. Assessment & Plan (12/17/2024 10:44 AM CDT): I will send an order in for the patient's CPAP to be decreased to 13 cm of water pressure. Assessment & Plan (09/03/2024 11:18 AM VP PRODUCT): The patient is going to try to CPAP once again. The patient has 2 L of oxygen that she will need to bleed into the circuit. Assessment & Plan (12/31/2023 8:53 AM CDT): The patient is intolerant of CPAP. She uses 2 L of oxygen p.r.n.. The patient is utilizing positional therapy Assessment & Plan (09/26/2023 8:42 AM VP PRODUCT): The patient continues to use positional therapy. [...] sleeping. Assessment & Plan (10/23/2022 9:31 AM VP PRODUCT): I encouraged the patient to resume CPAP therapy. She is currently practicing positional therapy with 2 L of oxygen via nasal cannula while sleeping. DME [facility] Assessment & Plan (02/01/2022 12:34 PM CDT): The patient was encouraged to resume the use of her CPAP. She continues to use 2 L of oxygen at night while sleeping. Her DME is [facility] patient. The patient is going to [...] night. Assessment & Plan (09/13/2020 10:11 AM VP PRODUCT): The patient was educated on the need [...] 1 mg p.o. q.h.s. Assessment & Plan (12/17/2024 10:44 AM CDT): Patient continue Requip 1 mg p.o. Q bedtime. Assessment & Plan (09/03/2024 10:52 AM VP PRODUCT): Due to continued symptoms, the patient will continue Requip 1 mg nightly Assessment & Plan (12/31/2023 8:53 AM CDT): The patient will continue with ropinirole 1 mg and iron supplementation. I have refilled the ropinirole and will refill for 1 year Assessment & Plan (09/26/2023 8:42 AM VP PRODUCT): The patient already restart to use Requip 1 mg p.o. Q HS Assessment & Plan (05/21/2023 10:19 AM CDT): The PLMS are under control with Requip 1 mg at bedtime. Assessment & Plan (10/23/2022 9:32 AM VP PRODUCT): The patient will continue Requip 1 mg [...] night Assessment & Plan (09/13/2020 10:12 AM VP PRODUCT): The patient will continue with Requip 1 [...] Average Number of Drinks Not on file 019 Frequency of Binge Drinking Not on file 10/2018 Comments No Sex and Gender Information Value Date Recorded Sex Assigned at Not on file Legal Sex Female 7:58 AM VP PRODUCT Gender Identity Not on file Sexual Orientation Not on file Last Filed Vital Signs Vital Sign Reading Time Taken Comments Blood Pressure 141/87 12/17/2024 10:08 AM CDT Pulse 76 12/17/2024 10:08 AM CDT Temperature 36 C (96.8 F) 09/03/2024 10:49 AM VP PRODUCT Respiratory Rate 22 12/17/2024 10:08 AM CDT Oxygen Saturation 93% 12/17/2024 10:08 AM CDT Inhaled Oxygen Concentration - - Weight 71.2 kg (157 lb) 12/17/2024 10:08 AM CDT Height 157.5 cm (5' 2 ) 12/17/2024 10:08 AM CDT Body Mass Index 28.72 12/17/2024 10:08 AM CDT Plan of Treatment Not on file Medical Devices Implanted Type Area Telegraph Dispatcher Device Identifier Shelf Expiration Date Model / Serial / Lot Lassoek [id number] Centerpiece 10mm Lateral Hole Open Door Color Coded Spine - [id number] Implanted:Qty: 3 on 04/11/2020 by Brandon Pryor MD at [facility] N/A: Spine Cervical Med[employer] [id number] / / Medtronic Sofamor [place]ane[place] 853-467 Centerpiece 2.6mm 7mm Self Tap Stab Grab Color Coded Spine Screw - [id number] Implanted:Qty: 6 on 04/11/2020 by Brandon Pryor MD at [facility] N/A: Spine Cervical Medtronic Inc [id number] / / Medtronic Sofamor Danek [id number] Centerpiece 2.6mm 5mm Self Tap Stab Grab Color Coded Spine Screw - [id number] Implanted:Qty: 6 on 04/11/2020 by Brandon Pryor MD at [facility] N/A: Spine Cervical Medtronic Inc [id number] / / Procedures Procedure Name Priority Date/Time Associated Diagnosis Comments CT CHEST WO CONTRAST F/U LUNG SCREEN PROTOCOL Schedule Routine, Read Routine (OP Routine) 12/26/2023 8:27 AM CDT Lung nodules HEPATITIS PANEL, ACUTE Routine 01/09/2014 6:46 AM CDT SCREENING MAMMOGRAM 2D BILATERAL Routine 09/02/2012 7:42 AM VP PRODUCT from Last 3 Months or Most Recently [...] signed by Kenroy NINO T: Report ID: [id number] Reading Location: [place] [address] Procedure Note Kenroy Calderon MD - 12/26/2023 [...] 2 mm pulmonary nodules are unchanged from 202. Moderate centrilobular pulmonary emphysema. Lung-RADS category 2: Benign appearance or behavior. Recommendation: Low dose Screening CT of chest in 12 months. THIS IS AN ELECTRONICALLY VERIFIED FINAL REPORT 12/26/2023 2:32 PM - Electronically signed by Kenroy Calderon M.D. LB T: Report ID: [id number] Reading Location: [place] [address] Evelyn Butler ENTRY ENGINEER IM CT PROCEDURES Final Result * Hepatitis panel, acute (01/09/2014 6:46 AM CDT) HepBsAg NONREACT NONREACTIVE 01/09/2014 10:06 AM [facility] [employer]round HISTORICAL RESULTS Comment: Siemens CentaurXP using LASHAE (chemiluminescent immunoassay) technology. NONREACTIVE: IgM antibodies to Hepatitis B Surface antigen not detected. REACTIVE: IgM antibodies to Hepatitis B Surface antigen detected. Reactive results will be confirmed by neutralization testing. HBsAb (immune status) NONREACT NONREACTIVE 01/09/2014 10:06 AM [employer] HISTORICAL RESULTS Comment: Siemens CentaurXP using LASHAE (chemiluminescent immunoassay) technology. NONREACTIVE: IgM antibodies to Hepatitis B Surface antibody not detected. REACTIVE: IgM antibodies to Hepatitis B Surface antibody detected. Hep B core IgM NONREACT NONREACTIVE 4 10:46 AM [employer] HISTORICAL RESULTS Comment: Siemens CentaurXP using LASHAE (chemiluminescent immunoassay) technology. NONREACTIVE: IgM antibodies to Hepatitis B Core antigen not detected. EQUIVOCAL: IgM antibodies to Hepatitis B Core antigen may or may not be present. Obtain a new specimen and retest. REACTIVE: IgM antibodies to Hepatitis B Core antigen detected. Hep A IgM NONREACT NONREACTIVE 01/09/2014 10:46 AM [employer] HISTORICAL RESULTS Comment: Siemens CentaurXP using LASHAE (chemiluminescent immunoassay) technology. NONREACTIVE: IgM antibodies to Hepatitis A not detected. This does not exclude possibility of exposure to Hepatitis A or early acute infection. EQUIVOCAL:IgM antibodies to Hepatitis A may or may not be present. Suggest recollection and retest. REACTIVE: Antibodies to Hepatitis A detected. Hep C Ab NONREACT NONREACTIVE 01/09/2014 10:46 AM [employer] HISTORICAL RESULTS Comment: Siemens CentaurXP using LASHAE [...] 6:46 AM CDT 01/09/2014 6:51 AM CDT us Fernando Garcia DO LAB MICROBIOLOGY - GENER AL ORDERABLES Final Result [facility] HISTORICAL RESULTS * Screening Mammogram 2D Bilateral (09/02/2012 7:42 AM VP PRODUCT) Anatomical Region Laterality Modality Breast Bilateral Mammography 09/02/2012 7:42 AM VP PRODUCT Impressions 09/02/2012 8:19 AM VP PRODUCT No mammographic evidence of malignancy. Recommend routine annual screening mammography. ASSESSMENT: BIRADS: 1 - Negative THIS IS AN ELECTRONICALLY VERIFIED REPORT 09/02/2012 8:16 AM: Bel Rebolledo M.D. Bel Rebolledo M.D. KL:tobin 08:16 AM 08:16 AM [EOD] Narrative 09/02/2012 8:19 AM VP PRODUCT EXAMINATION: Bilateral screening mammogram HISTORY: Routine screening [...] M.D. KL:tobin 08:16 AM 08:16 AM [EOD] [facility] [place]ada Sheth MD IMG MAMMO PROCEDURES Final Result from Last 3 Months or Most Recently Relevant to Health Maintenance Insurance MEDICARE IDND [facility] MEDICARE IDPA Advance Directives For more information, please contact: [phone] * Full Code (Latest Code Status on File) Date Activated Date Inactivated Comments 04/11/2020 7:55 PM 04/13/2020 3:39 PM Care Teams Medical Unit Secretary Relationship Specialty Start Date End Date Ernst Osoroi MD [address] [place] [address] PCP - General Emergency Medicine 06/02/19
--- OUTSIDE RECORDS SUMMARY | 2024-12-24 07:29 | XMS_ITS | Clinical Summary ---
Author Organization [facility] Address [address] [place] [address] Care Team Providers Care Meter Reader Chief Name Role Phone Ernst Osorio MD Primary Care Provider [phone] Allergies Active Allergy Reactions Criticality Noted Date [...] Small bowel obstruction (CMS/HCC HHS/HCC) 2022 Immunizations Immunization Administration Dates Next Due Fluzone 6 Months+ [...] place to sleep or slept in a longterm (including now)? No 09/15/2022 Comments No Sex and Gender Information Value Date Recorded Sex Assigned at Not on file Legal Sex Female 7:37 AM DETENTION OFFICER Gender Identity Not on file Sexual Orientation Not on file Last Filed Vital Signs Vital Sign Reading Time Taken Comments Blood Pressure 141/69 09/18/2022 4:25 AM DETENTION OFFICER Pulse 61 09/18/2022 4:25 AM DETENTION OFFICER Temperature 36.7 C (98.1 F) 09/18/2022 4:25 AM DETENTION OFFICER Respiratory Rate 18 09/18/2022 4:25 AM DETENTION OFFICER Oxygen Saturation 96% 09/18/2022 9:22 AM DETENTION OFFICER Inhaled Oxygen Concentration - - Weight 75.5 kg (166 lb 7.2 oz) 09/18/2022 4:25 A M DETENTION OFFICER Height 157.5 cm (5' 2 ) 09/15/2022 7:45 AM DETENTION OFFICER Body Mass Index 30.44 09/15/2022 7:45 AM DETENTION OFFICER Plan of Treatment Health Maintenance Due Date Last Done Comments Colorectal Cancer Screening Colonoscopy (10 Years) 1958 Hepatitis C 1976 DTaP, Tdap and Td Vaccines ( 1 - Tdap) 1977 Mammogram Screening 1998 Zoster Vaccines (1 of 2) 2008 Pneumococcal Vaccine: 50+ Years (3 of 3 - PCV20 or PCV21) 08/16/2021 08/16/2016, 02/05/2015 Annual Medicare Wellness Visit 12/03/2023 Dexa Scan (General) 12/03/2023 COVID-19 Vaccine (3 - 2023-2 5 season) 2024 11/17/2020, 10/29/2020 RSV Immunization or 60+ Years (1 - 1-dose 75+ series) 2033 Meningococcal B Vaccine Aged Out No l onger eligible based on patient's age to complete this topic Meningococcal Vaccine Aged Out No chantel ronen eligible based on patient's age to complete this topic RSV Immunizations Under 20 Months Aged Out No longer eligible b ased on patient's age to complete this topic Goals Goal Patient Goal Type Associated Problems Recent Progress Patient-Stated? Author Family - family caregiver with be involved in care transitions and discharge planning Lifestyle No Bing Cross, SOUND SYSTEM INSTALLERprogress clerk MEDICARE MEDICAID Advance Directives * Full Code (Latest Code Status on File) Date Activated Date Inactivated Comments 09/15/2022 12:16 PM 09/18/2022 2:58 PM Care Teams Meter Reader Chief Relationship Specialty Start Date End Date Ernst Osorio MD [address] [place] [address] PCP - General INTERNAL MEDICINE 09/16/22
--- OUTSIDE RECORDS SUMMARY | 2024-12-24 07:29 | XMS_ITS | Clinical Summary ---
Author Organization [facility] Address [address] [place] [address] Care Team Providers Care Technology Assistant Name Role Phone Ernst Osorio MD Primary Care Provider [phone] Allergies Active Allergy Reactions Criticality Noted Date [...] Encounters Date Type Department Care Team Description 11/23/2024 8:30 AM CDT Office Visit [facility] Oncology and Hematology - [facility] [address] [place] [address] Bryant Valenzuela MD Chronic anemia (Primary Dx) 11/23/[address] [facility] Oncology and Hematology Bhup[facility] [address] [place] [address] Bryant Valenzuela MD 11/22/[address] [facility] Oncology and Hematology - [place] [id number] [facility] [address] [place] [phone] Bryant Valenzuela MD labs for appt 11/17/2024 External Device Data ST[facility] ABSTRACTION Provider, Abstract 11/09/2024 External Device Data [facility] ABSTRACTION Provider, Abstract 11/09/2024 External Device Data [facility] ABSTRACTION Provider, Abstract 11/06/2024 External Device Data [facility] ABSTRACTION Provider, Abstract 11/05/2024 External Device Data ST[facility] ABSTRACTION Provider, Abstract 11/03/2024 External Device Data STL ABSTRACTION Provider, Abstract 11/02/2024 External Device Data [facility] ABSTRACTION Provider, Abstract 10/19/2024 External Device Data [facility] ABSTRACTION Provider, Abstract from Last 3 Months Family History Relation Name Status Comments Brother 1 Brother 2 Father Mother Sister 1 Alive Sister 2 Alive Son 1 Alive Son 2 Alive Son 3 Alive Son 4 Alive Son 5 Alive Social History Tobacco Use Types Packs/Day Years Used Date Smoking Tobacco: Every Day Cigarettes 0.5 30.7 Started: 04/13/1994 Smokeless Tobacco: Never Tobacco Cessation:Ready [...] Sign Reading Time Taken Comments Blood Pressure 120/53 11/23/2024 8:33 AM CDT Pulse 61 11/23/2024 8:33 AM CDT Temperature 36.3 C (97.3 F) 11/23/2024 8:33 AM CDT Respiratory Rate 14 11/23/2024 8:33 AM CDT Oxygen Saturation 91% 11/23/2024 8:33 AM CDT Inhaled Oxygen Concentration - - Weight 71.7 kg (158 lb) 11/23/2024 8:33 AM CDT Height 157.5 cm (5' 2 ) 05/17/2022 9:17 AM CDT Body Mass Index 28.9 05/17/2022 9:17 AM CDT Plan of Treatment Upcoming Encounters Date Type Department Care Team (Late st Contact Info) Description 05/26/2025 8:30 AM CDT Office Visit [facility] Oncology and Hematology - [facility] [address] [facility] [address] [place] [address] Bryant Valenzuela MD [address] [facility] [address] [place] [address] Health Maintenance Due Date Last Done Comments Pre-Diabetes and Diabetes Screening 1960 DTAP/TDAP/TD VACCINES (1 - Tdap) 1977 FIT-DNA Q 3 years 12/03/2003 FIT/FOBT Q 1 year 12/03/2003 Flex Sig/CT Colonography Q 5 years 12/03/2003 ZOSTER VACCINE (1 of 2) 2008 RSV VACCINE (60+ or ) (1 - Risk 60-74 years 1-dose series) 2018 PNEUMOCOCCAL VACCINE 50+ YEA RS (3 of 3 - PCV20 or PCV21) 08/16/2021 08/16/2016, 02/05/2015 BREAST CANCER SCREENING 03/28/2022 03/28/20 21, 03/01/2021, 03/01/2021, Additional history exists OSTEOPOROSIS SCREENING 12/03/2023 INFLUENZA VACCINE (#1) 2024 0, 07/09/2019, 07/05/2019, Additional history exists COLORECTAL SCREENING 07/28/2033 07/28/2023, 04/05/20 21 Colorectal Cancer Screening 07/28/2033 Procedures Procedure Name Priority Date/Time Associated Diagnosis Comments IRON PANEL Routine 11/22/2024 2:44 PM CDT CBC WITH DIFFERENTIAL Routine 11/22/2024 11:26 AM CDT from Last 3 Months Results * IRON PANEL (11/22/2024 2:44 PM CDT) Blood us Bryant Valenzuela MD CHEMISTRY ORDERABLES Final Resu lt * CBC WITH DIFFERENTIAL (11/22/2024 11:26 AM CDT) Blood Bryant Valenzuela MD HEMATOLOGY ORDERABLES Final Res ult from Last 3 Months Insurance MEDICARE PART A [place] Care Teams Technology Assistant Relationship Specialty Start Date End Date Ernst Osorio MD [address] [phone] PCP - General Internal Medicine 01/04/22
--- OUTSIDE RECORDS SUMMARY | 2024-12-24 07:29 | XMS_ITS | Clinical Summary ---
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 before 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 Active DULoxetine DR (CYMBALTA) 30 [...] 09/03/2024 Assessment & Plan (09/03/2024 10:53 AM TRANSPORTATION AID): Due to continued symptoms, patient continue oxygen 2.5 L with activity and the patient will continue 2 L of oxygen via nasal cannula at night while sleeping 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 The patient was informed that untreated sleep apnea and also Chronic obstructive pulmonary disease can lead to pulmonary hypertension. Primary hypertension 09/26/2023 Assessment & Plan (12/31/2023 8:53 AM CDT): Will continue to follow with PCP Assessment & Plan (09/26/2023 8:43 AM TRANSPORTATION AID): I have ordered an echocardiogram. Lung nodules 05/21/2023 Assessment & Plan (12/17/2024 10:44 AM CDT): The patient has a CAT scan on December 27, 2024. Assessment & Plan (09/03/2024 10:53 AM TRANSPORTATION AID): CT scan ordered for November of 2024 Assessment & Plan (12/31/2023 8:53 AM CDT): Patient continues to have pulmonary nodules monitored by CT scanning. A CT scan has been ordered for November of 2024 Assessment & Plan (09/26/2023 8:43 AM TRANSPORTATION AID): I have ordered another CT scan for [...] (03/15/2020): Added automatically from request for surgery [id number] Tobacco abuse 03/08/2020 Assessment & Plan (12/17/2024 10:44 AM CDT): The patient has a CAT scan scheduled on December 27, 2024. Assessment & Plan (09/03/2024 10:52 AM TRANSPORTATION AID): The patient has been encouraged to decrease smoking. The patient has a CT scan ordered for November of 2024 Assessment & Plan (12/31/2023 8:54 AM CDT): The patient recently resumed smoking. I did encourage the patient to continue to try to quit smoking. A lung cancer screening CTs been ordered for November of 2024 Assessment & Plan (09/26/2023 8:43 AM TRANSPORTATION AID): The patient has stopped smoking on August 11, 2023. Assessment & Plan (10/23/2022 9:32 AM TRANSPORTATION AID): Patient will continue to try to decrease [...] 02/28/2021. Assessment & Plan (09/13/2020 10:12 AM TRANSPORTATION AID): The patient was educated on the need [...] Dosepak. Assessment & Plan (09/03/2024 10:51 AM TRANSPORTATION AID): Due to ongoing symptoms, the patient will [...] cough Assessment & Plan (09/26/2023 8:41 AM TRANSPORTATION AID): Patient continue to use Trelegy one inhalation [...] activity. Assessment & Plan (10/23/2022 9:31 AM TRANSPORTATION AID): Will continue with Trelegy. The patient has [...] Advair. Assessment & Plan (09/13/2020 10:10 AM TRANSPORTATION AID): The patient will continue with Advair as [...] CPAP. Assessment & Plan (09/03/2024 10:51 AM TRANSPORTATION AID): Due to continued symptoms, the patient will continue with Provigil 200 mg on a p.r.n. basis/daily Assessment & Plan (12/31/2023 8:52 AM CDT): The patient will continue with Provigil 200 mg daily/p.r.n.. I have refilled the medication I will refill for 1 year Assessment & Plan (09/26/2023 8:41 AM TRANSPORTATION AID): The patient continues to use Nuvigil 150 mg as a p.r.n. basis. The patient states she only uses it if she is very tired during the day are goes on long drives. Assessment & Plan (05/21/2023 10:18 AM CDT): The patient's hypersomnia is under control with Provigil 200 mg in the morning. Assessment & Plan (10/23/2022 9:31 AM TRANSPORTATION AID): Will continue Provigil 200 mg in the morning and on a p.r.n. basis. I have reordered the medication. Assessment & Plan (03/14/2021 9:30 AM CDT): The patient continues to benefit from Provigil 200 mg q.a.m. Assessment & Plan (09/13/2020 10:11 AM TRANSPORTATION AID): The patient will continue with Provigil 200 [...] pressure. Assessment & Plan (09/03/2024 11:18 AM TRANSPORTATION AID): The patient is going to try to CPAP once again. The patient has 2 L of oxygen that she will need to bleed into the circuit. Assessment & Plan (12/31/2023 8:53 AM CDT): The patient is intolerant of CPAP. She uses 2 L of oxygen p.r.n.. The patient is utilizing positional therapy Assessment & Plan (09/26/2023 8:42 AM TRANSPORTATION AID): The patient continues to use positional therapy. [...] sleeping. Assessment & Plan (10/23/2022 9:31 AM TRANSPORTATION AID): I encouraged the patient to resume CPAP therapy. She is currently practicing positional therapy with 2 L of oxygen via nasal cannula while sleeping. [facility] Assessment & Plan (02/01/2022 12:34 PM CDT): The patient was encouraged to resume the use of her CPAP. She continues to use 2 L of oxygen at night while sleeping. Her DME is [facility]. The patient is going to [...] night. Assessment & Plan (09/13/2020 10:11 AM TRANSPORTATION AID): The patient was educated on the need [...] bedtime. Assessment & Plan (09/03/2024 10:52 AM TRANSPORTATION AID): Due to continued symptoms, the patient will continue Requip 1 mg nightly Assessment & Plan (12/31/2023 8:53 AM CDT): The patient will continue with ropinirole 1 mg and iron supplementation. I have refilled the ropinirole and will refill for 1 year Assessment & Plan (09/26/2023 8:42 AM TRANSPORTATION AID): The patient already restart to use Requip 1 mg p.o. Q HS Assessment & Plan (05/21/2023 10:19 AM CDT): The PLMS are under control with Requip 1 mg at bedtime. Assessment & Plan (10/23/2022 9:32 AM TRANSPORTATION AID): The patient will continue Requip 1 mg [...] night Assessment & Plan (09/13/2020 10:12 AM TRANSPORTATION AID): The patient will continue with Requip 1 mg p.o. at bedtime to manage her periodic limb movement disorder. Assessment & Plan (03/08/2020 9:50 AM CDT): The patient will continue to take Requip 1 mg at bedtime. Patient states she is currently asymptomatic on this medical treatment. Encounters Date Type Department Care Team Description 12/17/2024 10:15 AM CDT Office Visit [facility] [address] [place] [address] [place] [phone] Evelyn Butler, LOVELY Centrilobular emphysema (HCC) (Primary Dx); Hypersomnia; Obstructive sleep apnea; Tobacco abuse; Lung nodules; Hypoxemia; Enlarged pulmonary artery (HCC); Periodic limb movement disorder 11/29/2024 Telephone [facility] [address] [place] [address] [address] [place] [address] Letty Heart NP from Last 3 Months Immunizations Immunization Administration Dates Next Due Influenza, Quadrivalent, Spl it, Intramuscular 07/09/2019,08/16/2016 Influenza, Quadrivalent, Spl it, Preservative Free, Intramuscular 06/30/2020,07/05/2019,08/03/2018 Influenza, Trivalent, IM (MDV) 07/02/2017 Pneumococcal Conjugate PCV 13 02/05/2015 Pneumococcal Polysaccharide PPV23 08/16/2016 Surgical History Surgery Date Site/Laterality Comments CHOLECYSTECTOMY TONSILLECTOMY HYSTERECTOMY SMALL BOWEL RESECTION NECK SURGERY @ [facility] APPENDECTOMY 08/12/2023 SMALL INTESTINE SURGERY 08/01/2023 - [...] on file Legal Sex Female 7:58 AM TRANSPORTATION AID Gender Identity Not on file Sexual Orientation Not on file Obstetrics History Last Filed Vital Signs Vital Sign Reading Time Taken Comments Blood Pressure 141/87 12/17/2024 10:08 AM CDT Pulse 76 12/17/2024 10:08 AM CDT Temperature 36 C (96.8 F) 09/03/2024 10:49 AM TRANSPORTATION AID Respiratory Rate 22 12/17/2024 10:08 AM CDT Oxygen Saturation 93% 12/17/2024 10:08 AM CDT Inhaled Oxygen Concentration - - Weight 71.2 kg (157 lb) 12/17/2024 10:08 AM CDT Height 157.5 cm (5' 2 ) 12/17/2024 10:08 AM CDT Body Mass Index 28.72 12/17/2024 10:08 AM CDT Plan of Treatment Health Maintenance Due Date [...] 08/16/2021 08/16/2016, 02/05/2015 Well Visit 65+ 12/03/2023 Lung Cancer Screening 12/26/2024 12/26/2023 , 09/24/2023, 05/09/2023, Additional history exists Influenza Vaccine (Season Ended) 2025 06/30/2020, 07/09/2019, 07/05/2019, Additional history exists Hepatitis C Screening Completed 01/09/2014 Medical Devices Implanted Type Area Actuarial Science Teacher Device Identifier Shelf Expiration Date Model / Serial / Lot Medtronic Sofamor Danek [id number] Centerpiece 10mm Lateral Hole Open Door Color Coded Spine - [id number] Implanted:Qty: 3 on 04/11/2020 by Brandon Pryor MD at [facility] N/A: Spine Cervical Medtronic Inc [id number] / / Medtronic Sofamor Danek [id number] Centerpiece 2.6mm 7mm Self Tap Stab Grab Color Coded Spine Screw - [id number] Implanted:Qty: 6 on 04/11/2020 by Brandon Pryor MD at [facility] N/A: Spine Cervical Medtronic Inc [id number] / / Medtronic Sofamor Danek [id number] Centerpiece 2.6mm 5mm Self Tap Stab Grab Color Coded Spine Screw - [id number] Implanted:Qty: 6 on 04/11/2020 by Brandon Pryor MD at [facility] N/A: Spine Cervical Medtronic Inc [id number] / / Procedures Procedure Name Priority Date/Time Associated Diagnosis Comments CT CHEST WO CONTRAST F/U LUNG SCREEN PROTOCOL Schedule Routine, Read Routine (OP Routine) 12/26/2023 8:27 AM CDT Lung nodules HEPATITIS PANEL, ACUTE Routine 01/09/2014 6:46 AM CDT SCREENING MAMMOGRAM 2D BILATERAL Routine 09/02/2012 7:42 AM TRANSPORTATION AID from Last 3 Months or Most Recently [...] upper lobe (image 74) is unchanged from 2022. The previously described cluster of nodules in [...] Kenroy Calderon M.D. LB T: Report ID: [id number] Reading Location: [place] [address] Procedure Note Kenroy Calderon MD - 12/26/2023 [...] Kenroy Calderon M.D. LB T: Report ID: [id number] Reading Location: [place] [address] Evelyn Butler NP IM CT PROCEDURES Final Result * Hepatitis panel, acute (01/09/2014 6:46 AM CDT) HepBsAg NONREACT NONREACTIVE Comment: Siemens CentaurXP using LASHAE [...] core IgM NONREACT NONREACTIVE 4 10:46 AM [facility] HISTORICAL RESULTS Comment: Siemens CentaurXP using LASHAE [...] MICROBIOLOGY - GENER AL ORDERABLES Final Result [facility] HISTORICAL RESULTS * Screening Mammogram 2D Bilateral (09/02/2012 7:42 AM TRANSPORTATION AID) Anatomical Region Laterality Modality Breast Bilateral Mammography 09/02/2012 7:42 AM TRANSPORTATION AID Impressions 09/02/2012 8:19 AM TRANSPORTATION AID No mammographic evidence of malignancy. Recommend routine annual screening mammography. ASSESSMENT: BIRADS: 1 - Negative THIS IS AN ELECTRONICALLY VERIFIED REPORT 09/02/2012 8:16 AM: Bel Rebolledo M.D. Bel Rebolledo M.D. KL:tobin 08:16 AM 08:16 AM [EOD] Narrative 09/02/2012 8:19 AM TRANSPORTATION AID EXAMINATION: Bilateral screening mammogram HISTORY: Routine screening [...] KL:tobin 08:16 AM 08:16 AM [EOD] Gama Sheth MD IM MAMMO PROCEDURES Final Result from Last 3 Months or Most Recently Relevant to Health Maintenance Insurance [facility] MEDICARE [place] MEDICARE [place] Advance Directives For more information, please contact: [phone] * Full Code (Latest Code Status on File) Date Activated Date Inactivated Comments 04/11/2020 7:55 PM 04/13/2020 3:39 PM Care Teams Setter Up Relationship Specialty Start Date End Date Ernst Osorio MD [address] [place], [place] [id number] PCP - General Emergency Medicine 06/02/19
== END 2024-12-24 07:26 | disposition home or self-care (01) ==
LOC: ANHIMG 07:26
PROVIDERS: PCP Emergency Medicine; Visit Provider Emergency Medicine
DX: Z78.0 Asymptomatic menopausal state (principal); M85.88 Other specified disorders of bone density and structure, other site; M81.0 Age-related osteoporosis without current pathological fracture; M85.852 Other specified disorders of bone density and structure, left thigh; M85.851 Other specified disorders of bone density and structure, right thigh
CPT/HCPCS: 77080

== ENCOUNTER 2025-01-26 10:44 | Outpatient (CLI) | payer MEDICARE, MEDICAID, SELFPAY ==
--- OUTSIDE RECORDS SUMMARY | 2025-01-26 10:49 | XMS_ITS | Encounter Summary ---
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
--- OUTSIDE RECORDS SUMMARY | 2025-01-26 10:49 | XMS_ITS | Referral Summary ---
Author Organization [facility] Address [address] [place] [address] Care Team Providers Care Electric Wheelchair Repairer Name Role Phone Ernst Osorio MD Primary Care Provide r Encounters Date Type Department Care Team Description 12/28/[address] [facility] Medical Group Pulmonary [address] [place] [address] Letty Heart NP 12/28/[address] [facility] Medical [facility] Pulmonology [address] [place] [address] [place] [address] Francisco Reid MD Centrilobular emphysema (HCC); Chronic obstructive pulmonary disease, unspecified COPD type (HCC) 12/28/2024 Telephone [facility] [address] [place] [address] Frances Amaya RN Lung Screening 12/27/2024 8:00 AM CDT - 12/27/2024 11:59 PM CDT Hospital Encounter [facility] [address] [place] [address] Centrilobular emphysema (HCC); Lung nodules; Personal history of tobacco use Discharge Disposition: Discharge to home or self care 12/17/2024 10:15 AM CDT Office Visit [facility] Pulmonology [address] [place] [address] [address] [place] [address] Evelyn Butler NP Centrilobular emphysema (HCC) (Primary Dx); Hypersomnia; Obstructive sleep apnea; Tobacco abuse; Lung nodules; Hypoxemia; Enlarged pulmonary artery (HCC); Periodic limb movement disorder 11/29/[address] [facility] Medical Group Pulmonology [address] [place] [address] Letty Heart NP from Last 3 Months Allergies Active Allergy Reactions Criticality Noted Date Comments Adhesive Tape-Silicones Rash Medium 12/04/2018 Rash Amoxicillin Hives Medium 12/04/2018 hives Latex Rash Medium 01/04/2022 Penicillins Hives Medium 04/11/2020 Venom-Honey Bee Swelling Medium 01/04/2022 Medications docusate sodium (DOK) 100 mg tabletIndicatio ns:constipation Take 3 tablets (300 mg total) by mouth wash rack operator before breakfast Active DULoxetine DR (CYMBALTA) 30 mg capsule Take 1 capsule (30 mg total) by mouth daily 04/13/20 20 Active acetaminophen 500 mg capsule Take 2 capsules (1,000 mg total) by mouth every 6 (six) hours 30 tablet 04/13/20 20 Active tiZANidine (ZANAFLEX) 2 mg tablet Take 1 tablet (2 mg total) by mouth every 8 (eight) hours as needed for muscle spasms 30 tablet 1 08/10/20 20 Active Additional Information Patient not taking.Reported on 12/17/2024 meloxicam (MOBIC) 15 mg tablet TK 1 T PO QD PRN FOR PAIN 07/20/[address] (PROTONIX) 20 mg EC tablet 09/12/19 21 Active traMADoL (ULTRAM) 50 mg tablet Take by mouth every 6 (six) hours as needed 08/11/20 20 Active triamcinolone (KENALOG) 0.1 % ointment PASTOR EXT AA TID FOR 10 DAYS 06/21/20 20 Active buPROPion SR (ZYBAN) 150 mg 12 hr tablet Take 1 tablet (150 mg total) by mouth daily 01/16/20 21 Active promethazine (PHENERGAN) 25 mg tablet 03/12/20 21 Active polyethylene glycol-electrol ytes 420 gram solution 07/12/20 21 Active FeroSuL 325 mg (65 mg iron) tablet Take 1 tablet (325 mg total) by mouth 2 (two) times a day 11/15/19 22 Active cyclobenzaprine (FLEXERIL) 5 mg tablet Take 1 tablet (5 mg total) by mouth 3 (three) times a day as needed for muscle spasms 10/10/19 23 Active guaiFENesin ER (MUCINEX) 600 mg 12 hr tabletIndicatio ns:Centrilobula r emphysema (HCC) Take 2 tablets (1,200 mg total) by mouth 2 (two) times a day 120 tablet 11 10/23/19 23 Active amLODIPine (NORVASC) 5 mg tablet Take 1 tablet (5 mg total) by mouth every morning 08/05/20 23 Active rOPINIRole (REQUIP) 1 mg tabletIndicatio ns:Periodic limb movement disorder Take 1 tablet (1 mg total) by mouth nightly 90 tablet 3 12/31/19 24 Active Additional Information Patient not taking.Reported on 12/17/2024 fluticasone propionate (FLONASE) 50 mcg/actuation nasal sprayIndication s:Centrilobular emphysema (HCC) SHAKE LIQUID AND USE 2 SPRAYS IN EACH NOSTRIL DAILY 16 g 6 08/17/20 24 Active modafiniL (PROVIGIL) 200 mg tabletIndicatio ns:Sleepiness Due To Obstructive Sleep Apnea Take 1 tablet (200 mg total) by mouth daily 90 tablet 3 09/03/19 25 Active Additional Information Patient not taking.Reported on 12/17/2024 albuterol HFA (PROVENTIL HFA,VENTOLIN HFA,PROAIR HFA) 90 mcg/actuation inhalerIndicati ons:Centrilobul ar emphysema (HCC) INHALE 2 PUFFS BY MOUTH EVERY 6 HOURS NEEDED FOR WHEEZING. 25.5 g 3 11/23/19 25 Active Trelegy Ellipta 100-62.5-25 mcg inhaler INHALE 1 PUFF BY MOUTH DAILY 60 each 3 11/23/19 25 Active methylPREDNISol one (Medrol, Qasim,) 4 mg Dosepack follow package directions 1 packet 12/18/19 25 Active albuterol 2.5 mg /3 mL (0.083 %) nebulizer solutionIndicat ions:Chronic obstructive pulmonary disease, unspecified COPD type (HCC) Take 3 mL (2.5 mg total) by nebulization every 6 (six) hours as needed for wheezing 120 mL 3 12/29/19 25 Active albuterol 2.5 mg /3 mL (0.083 %) nebulizer solutionIndicat ions:Chronic obstructive pulmonary disease, unspecified COPD type (HCC) Take 3 mL (2.5 mg total) by nebulization every 6 (six) hours as needed for wheezing for up to 120 doses 120 mL 2 12/31/19 24 025 Discontin ued(Reord er) Active Problems Problem Noted Date Diagnosed Date Hypoxemia 09/03/2024 Assessment & Plan (09/03/2024 10:53 AM MERCHANDISE PRESENTATION MANAGER): Due to continued symptoms, patient continue oxygen 2.5 L with activity and the patient will continue 2 L of oxygen via nasal cannula at night while sleeping 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 The patient was informed that untreated sleep apnea and also Chronic obstructive pulmonary disease can lead to pulmonary hypertension. Primary hypertension 09/26/2023 Assessment & Plan (12/31/2023 8:53 AM CDT): Will continue to follow with PCP Assessment & Plan (09/26/2023 8:43 AM MERCHANDISE PRESENTATION MANAGER): I have ordered an echocardiogram. Lung nodules 05/21/2023 Assessment & Plan (12/17/2024 10:44 AM CDT): The patient has a CAT scan on December 27, 2024. Assessment & Plan (09/03/2024 10:53 AM MERCHANDISE PRESENTATION MANAGER): CT scan ordered for November of 2024 Assessment & Plan (12/31/2023 8:53 AM CDT): Patient continues to have pulmonary nodules monitored by CT scanning. A CT scan has been ordered for November of 2024 Assessment & Plan (09/26/2023 8:43 AM MERCHANDISE PRESENTATION MANAGER): I have ordered another CT scan for [...] (03/15/2020): Added automatically from request for surgery [id number] Tobacco abuse 03/08/2020 Assessment & Plan (12/17/2024 10:44 AM CDT): The patient has a CAT scan scheduled on December 27, 2024. Assessment & Plan (09/03/2024 10:52 AM MERCHANDISE PRESENTATION MANAGER): The patient has been encouraged to decrease smoking. The patient has a CT scan ordered for November of 2024 Assessment & Plan (12/31/2023 8:54 AM CDT): The patient recently resumed smoking. I did encourage the patient to continue to try to quit smoking. A lung cancer screening CTs been ordered for November of 2024 Assessment & Plan (09/26/2023 8:43 AM MERCHANDISE PRESENTATION MANAGER): The patient has stopped smoking on August 11, 2023. Assessment & Plan (10/23/2022 9:32 AM MERCHANDISE PRESENTATION MANAGER): Patient will continue to try to decrease [...] 02/28/2021. Assessment & Plan (09/13/2020 10:12 AM MERCHANDISE PRESENTATION MANAGER): The patient was educated on the need [...] Dosepak. Assessment & Plan (09/03/2024 10:51 AM MERCHANDISE PRESENTATION MANAGER): Due to ongoing symptoms, the patient will [...] cough Assessment & Plan (09/26/2023 8:41 AM MERCHANDISE PRESENTATION MANAGER): Patient continue to use Trelegy one inhalation [...] activity. Assessment & Plan (10/23/2022 9:31 AM MERCHANDISE PRESENTATION MANAGER): Will continue with Trelegy. The patient has [...] Advair. Assessment & Plan (09/13/2020 10:10 AM MERCHANDISE PRESENTATION MANAGER): The patient will continue with Advair as [...] CPAP. Assessment & Plan (09/03/2024 10:51 AM MERCHANDISE PRESENTATION MANAGER): Due to continued symptoms, the patient will continue with Provigil 200 mg on a p.r.n. basis/daily Assessment & Plan (12/31/2023 8:52 AM CDT): The patient will continue with Provigil 200 mg daily/p.r.n.. I have refilled the medication I will refill for 1 year Assessment & Plan (09/26/2023 8:41 AM MERCHANDISE PRESENTATION MANAGER): The patient continues to use Nuvigil 150 mg as a p.r.n. basis. The patient states she only uses it if she is very tired during the day are goes on long drives. Assessment & Plan (05/21/2023 10:18 AM CDT): The patient's hypersomnia is under control with Provigil 200 mg in the morning. Assessment & Plan (10/23/2022 9:31 AM MERCHANDISE PRESENTATION MANAGER): Will continue Provigil 200 mg in the morning and on a p.r.n. basis. I have reordered the medication. Assessment & Plan (03/14/2021 9:30 AM CDT): The patient continues to benefit from Provigil 200 mg q.a.m. Assessment & Plan (09/13/2020 10:11 AM MERCHANDISE PRESENTATION MANAGER): The patient will continue with Provigil 200 [...] pressure. Assessment & Plan (09/03/2024 11:18 AM MERCHANDISE PRESENTATION MANAGER): The patient is going to try to CPAP once again. The patient has 2 L of oxygen that she will need to bleed into the circuit. Assessment & Plan (12/31/2023 8:53 AM CDT): The patient is intolerant of CPAP. She uses 2 L of oxygen p.r.n.. The patient is utilizing positional therapy Assessment & Plan (09/26/2023 8:42 AM MERCHANDISE PRESENTATION MANAGER): The patient continues to use positional therapy. [...] sleeping. Assessment & Plan (10/23/2022 9:31 AM MERCHANDISE PRESENTATION MANAGER): I encouraged the patient to resume CPAP therapy. She is currently practicing positional therapy with 2 L of oxygen via nasal cannula while sleeping. DME [facility] Assessment & Plan (02/01/2022 12:34 PM CDT): The patient was encouraged to resume the use of her CPAP. She continues to use 2 L of oxygen at night while sleeping. Her DME is [facility] patient. The patient is going to [...] night. Assessment & Plan (09/13/2020 10:11 AM MERCHANDISE PRESENTATION MANAGER): The patient was educated on the need [...] bedtime. Assessment & Plan (09/03/2024 10:52 AM MERCHANDISE PRESENTATION MANAGER): Due to continued symptoms, the patient will continue Requip 1 mg nightly Assessment & Plan (12/31/2023 8:53 AM CDT): The patient will continue with ropinirole 1 mg and iron supplementation. I have refilled the ropinirole and will refill for 1 year Assessment & Plan (09/26/2023 8:42 AM MERCHANDISE PRESENTATION MANAGER): The patient already restart to use Requip 1 mg p.o. Q HS Assessment & Plan (05/21/2023 10:19 AM CDT): The PLMS are under control with Requip 1 mg at bedtime. Assessment & Plan (10/23/2022 9:32 AM MERCHANDISE PRESENTATION MANAGER): The patient will continue Requip 1 mg [...] night Assessment & Plan (09/13/2020 10:12 AM MERCHANDISE PRESENTATION MANAGER): The patient will continue with Requip 1 [...] Average Number of Drinks Not on file 10/02/2 019 Frequency of Binge Drinking Not on file 10/2018 Comments No Sex and Gender Information Value Date Recorded Sex Assigned at Not on file Legal Sex Female 7:58 AM MERCHANDISE PRESENTATION MANAGER Gender Identity Not on file Sexual Orientation Not on file Last Filed Vital Signs Vital Sign Reading Time Taken Comments Blood Pressure 141/87 12/17/2024 10:08 AM CDT Pulse 76 12/17/2024 10:08 AM CDT Temperature 36 C (96.8 F) 09/03/2024 10:49 AM MERCHANDISE PRESENTATION MANAGER Respiratory Rate 22 12/17/2024 10:08 AM CDT Oxygen Saturation 93% 12/17/2024 10:08 AM CDT Inhaled Oxygen Concentration - - Weight 69.4 kg (153 lb) 12/27/2024 8:11 AM CDT Height 157.5 cm (5' 2) 12/27/2024 8:11 AM CDT Body Mass Index 27.98 12/27/2024 8:11 AM CDT Plan of Treatment Not on file Medical Devices Implanted Type Area Sales Operations Coordinator Device Identifier Shelf Expiration Date Model / Serial / Lot Medtronic Sofamor Danek [id number] Centerpiece 10mm Lateral Hole Open Door Color Coded Spine - [id number] Implanted:Qty: 3 on 04/11/2020 by Brandon Pryor MD at [facility] N/A: Spine Cervical Med[employer] Inc [id number] / / Medtronic Sofamor Danek [id number] Centerpiece 2.6mm 7mm Self Tap Stab Grab Color Coded Spine Screw - [id number] Implanted:Qty: 6 on 04/11/2020 by Brandon Pryor MD at [facility] N/A: Spine Cervical Medtronic Inc [id number] / / Medtronic Sofamor Danek [id number] Centerpiece 2.6mm 5mm Self Tap Stab Grab Color Coded Spine Screw - [id number] Implanted:Qty: 6 on 04/11/2020 by Brandon Pryor MD at [facility] N/A: Spine Cervical Medtronic Inc [id number] / / Procedures Procedure Name Priority Date/Time Associated Diagnosis Comments CT LUNG CANCER SCREENING Schedule Routine, Read Routine (OP Routine) 12/27/2024 8:12 AM CDT Centrilobular emphysema (HCC) Lung nodules Personal history of tobacco use HEPATITIS PANEL, ACUTE Routine 01/09/2014 6:46 AM CDT SCREENING MAMMOGRAM 2D BILATERAL Routine 09/02/2012 7:42 AM MERCHANDISE PRESENTATION MANAGER from Last 3 Months or Most Recently Relevant to Health Maintenance Results * CT Lung Cancer Screening (12/27/2024 8:12 AM CDT) Anatomical Region Laterality Modality Chest N/A Computed Tomogra phy 12/28/2024 8:32 AM CDT Narrative 12/28/2024 8:38 AM CDT EXAM DESCRIPTION: CT LUNG CANCER SCREENING REASON FOR STUDY: Screening CT of the chest in a current smoker with a 26.5 pack year smoking history. Additional history: None. [...] DOSE: CT dose index volume (CTDIvol) = 1.62 mGy COMPARISON: 12/26/2023 FINDINGS: SMOKING RELATED LUNG DISEASE: There are moderate emphysematous changes of lungs with scattered subsegmental atelectasis and scarring, which is most significant in the mid right lung. There is mild biapical pleural thickening and scarring. There is no definite evidence of a pneumothorax. There is layering mucous debris noted in the trachea extending into the bilateral mainstem bronchi, which is likely related to mucous secretions and less likely changes of aspiration. There is scattered bronchial wall thickening, which is likely related to chronic bronchitis/bronchiolitis. There is no definite evidence of a pleural effusion. There are scattered calcified granulomas noted. LUNG NODULES: There is interval development of patchy consolidative airspace opacities in the left upper lobe, which is concerning for airspace disease of infectious or inflammatory etiology. There are scattered small pulmonary nodules noted, similar to the prior study. For example, there is stable subpleural 0.3 cm pulmonary nodule in the lateral right upper lobe (axial image 78). There is a stable subtle 0.2 cm pulmonary nodule in the central right upper lobe (axial image 85). There is a stable subtle 0.2 cm pulmonary nodule in the posterior central right upper lobe (axial image 128). CORONARY ARTERY CALCIFICATION: Not identified. OTHER: The heart size is stable. There is no definite evidence of pericardial effusion. There are mild atherosclerotic changes of the thoracic aorta. There is no definite unenhanced CT evidence of mediastinal, hilar, or axillary lymphadenopathy. There are scattered subcentimeter mediastinal lymph nodes noted with largest lymph node measuring 0.6 cm in the subcarinal region (axial image 140). There are small bilateral Bochdalek's hernias. The gallbladder is surgically absent. There is mild osteopenia with degenerative changes of the spine. IMPRESSION: Interval development of patchy consolidative airspace opacities in the left upper lobe, which is concerning for airspace disease of infectious or inflammatory etiology. Short-term follow-up low-dose chest CT in 1-3 months is recommended to assess for resolution and to exclude the presence of an underlying pulmonary nodule as clinically indicated. Scattered small pulmonary nodules noted, similar to the prior study. Moderate emphysematous changes of lungs with scattered subsegmental atelectasis and scarring, which is most significant in the mid right lung. Layering mucous debris noted in the trachea extending into the bilateral mainstem bronchi, which is likely related to mucous secretions and less likely changes of aspiration. Scattered bronchial wall thickening, which is likely related to chronic bronchitis/bronchiolitis. Lung-RADS category 0: Expiration. Recommendation: Low dose CT of chest in 1-3 months. THIS IS AN ELECTRONICALLY VERIFIED FINAL REPORT 12/28/2024 8:38 AM - Electronically signed by Sharda Praker D.O. PS T: Report ID: [id number] Reading Location: [place] [address] us Letty Heart NP IMG CT PROCEDURES Final Res ult * Hepatitis panel, acute (01/09/2014 6:46 AM CDT) HepBsAg NONREACT NONREACTIVE 01/09/2014 10:06 AM CDT [facility] HISTORICAL RESULTS Comment: Siemens [id number] using LASHAE (chemiluminescent immunoassay) technology. NONREACTIVE: IgM [...] core IgM NONREACT NONREACTIVE 4 10:46 AM [facility] HISTORICAL RESULTS Comment: Siemens CentaurXP [...] MICROBIOLOGY - GENER AL ORDERABLES Final Result [facility] HISTORICAL RESULTS * Screening Mammogram 2D Bilateral (09/02/2012 7:42 AM MERCHANDISE PRESENTATION MANAGER) Anatomical Region Laterality Modality Breast Bilateral Mammography 09/02/2012 7:42 AM MERCHANDISE PRESENTATION MANAGER Impressions 09/02/2012 8:19 AM MERCHANDISE PRESENTATION MANAGER No mammographic evidence of malignancy. Recommend routine annual screening mammography. ASSESSMENT: BIRADS: 1 - Negative THIS IS AN ELECTRONICALLY VERIFIED REPORT 09/02/2012 8:16 AM: Bel Rebolledo M.D. Bel Rebolledo M.D. KL:tobin 08:16 AM 08:16 AM [EOD] Narrative 09/02/2012 8:19 AM MERCHANDISE PRESENTATION MANAGER EXAMINATION: Bilateral screening mammogram HISTORY: Routine screening [...] AM 08:16 AM [EOD] Gama Sheth MD IMG MAMMO PROCEDURES Final Result from Last 3 Months or Most Recently Relevant to Health Maintenance Insurance MEDICARE [facility] MEDICARE IDPA MEDICARE IDPA Advance Directives For more information, please contact: [phone] * Full Code (Latest Code Status on File) Date Activated Date Inactivated Comments 04/11/2020 7:55 PM 04/13/2020 3:39 PM Care Teams Electric Wheelchair Repairer Relationship Specialty Start Date End Date Ernst Osorio MD [address] [place] [address] PCP - General Emergency Medicine 06/02/19
--- OUTSIDE RECORDS SUMMARY | 2025-01-26 10:49 | XMS_ITS | Encounter Summary ---
Author Organization [facility] Address [address] [place] [address] Care Team Providers Care Threshing Operator Name Role Phone Ernst Osorio MD Primary Care Provider [phone] Encounter Details Date Type Department Care Team ([facility] Contact Info) Description 09/15/2023 Telephone [facility] Oncology and Hematology Bhupendra [address] [place] [address] Bryant Valenzuela MD [address] [place], [place] [address] [employer] [address] [place] [phone] Social History Tobacco Use Types Packs/Day [...] Description 05/26/2025 8:30 AM CDT Office Visit [facility] Oncology and Hematology - Bhupendra [address] [place] [address] Bryant Valenzuela MD [address] [place] [phone] documented as of this encounter Visit Diagnoses Not on filedocumented in this encounter Care Teams Threshing Operator Relationship Specialty Start Date End Date Ernst Osorio MD [address] [place] [id number] PCP - General Internal Medicine 01/04/22 documented as of this encounter
--- OUTSIDE RECORDS SUMMARY | 2025-01-26 10:49 | XMS_ITS | Clinical Summary ---
Author Organization [facility] Nemesio castaneda Yousif Address [address] [place] [address] Care Team Providers Care Brake Lining Finisher Name Role Phone Ernst Osorio MD Primary Care Provider [phone] Allergies Active Allergy Reactions Criticality Noted Date [...] Encounters Date Type Department Care Team Description 01/18/2025 External Device Data STL ABSTRACTION Provider, Abstract 11/23/2024 8:30 AM CDT Office Visit [facility] Oncology and Hematology - Bhupendra [address] [place] [address] Bryant Valenzuela MD Chronic anemia (Primary Dx) 11/23/2024 Orders Only [facility] Oncology and Hematology - Bhupendra [address] [place] [address] Bryant Valenzuela MD 11/22/2024 [facility] Oncology and Hematology - Bhupendra [address] [place] [address] Bryant Valenzuela MD labs for appt 11/17/2024 [...] Date Smoking Tobacco: Every Day Cigarettes 0.5 30.8 Started: 04/13/1994 Smokeless Tobacco: Never Tobacco Cessation:Ready [...] 8:33 AM CDT Height 157.5 cm (5' 2) 05/17/2022 9:17 AM CDT Body Mass Index 28.9 05/17/2022 9:17 AM CDT Plan of Treatment Upcoming Encounters Date Type Department Care Team (Late st Contact Info) Description 05/26/2025 8:30 AM CDT Office Visit [facility] Oncology and Hematology - Bhupendra [address] [facility] [address] [place] [address] Bryant Valenzuela MD [address] [place] [address] Health Maintenance Due Date Last Done Comments Pre-Diabetes and Diabetes Screening 1958 DTAP/TDAP/TD VACCINES (1 - Tdap) 1977 Traditional Medicare (ACO) A nnual Wellness Visit 1977 FIT-DNA Q 3 years 12/03/2003 FIT/FOBT [...] A AND B MEDICAID [place] Care Teams Brake Lining Finisher Relationship Specialty Start Date End Date Ernst Osorio MD [address] [place] [id number] PCP - General Internal Medicine 01/04/22
--- OUTSIDE RECORDS SUMMARY | 2025-01-26 10:49 | XMS_ITS | Clinical Summary ---
Author Organization [facility] Office Center Address [address] [place] [address] Care Team Providers Care Oil Expeller Operator Name Role Phone Ernst Osorio MD Primary Care Provide r Allergies Active Allergy Reactions Criticality Noted Date Comments Adhesive Tape-Silicones Rash Medium 12/04/2018 Rash Amoxicillin Hives Medium 12/04/2018 hives Latex Rash Medium 01/04/2022 Penicillins Hives Medium 04/11/2020 Venom-Honey Bee Swelling Medium 01/04/2022 Medications docusate sodium (DOK) 100 mg tabletIndicatio ns:constipation Take 3 tablets (300 mg total) by mouth veterinary medicine teacher before breakfast Active DULoxetine DR (CYMBALTA) 30 [...] Active polyethylene glycol-electrol ytes 420 gram solution 03/12/20 21 Active FeroSuL 325 mg (65 mg [...] 09/03/2024 Assessment & Plan (09/03/2024 10:53 AM FRANCHISE SALES MANAGER): Due to continued symptoms, patient continue oxygen 2.5 L with activity and the patient will continue 2 L of oxygen via nasal cannula at night while sleeping 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 The patient was informed that untreated sleep apnea and also Chronic obstructive pulmonary disease can lead to pulmonary hypertension. Primary hypertension 09/26/2023 Assessment & Plan (12/31/2023 8:53 AM CDT): Will continue to follow with PCP Assessment & Plan (09/26/2023 8:43 AM FRANCHISE SALES MANAGER): I have ordered an echocardiogram. Lung nodules 05/21/2023 Assessment & Plan (12/17/2024 10:44 AM CDT): The patient has a CAT scan on December 27, 2024. Assessment & Plan (09/03/2024 10:53 AM FRANCHISE SALES MANAGER): CT scan ordered for November of 2024 Assessment & Plan (12/31/2023 8:53 AM CDT): Patient continues to have pulmonary nodules monitored by CT scanning. A CT scan has been ordered for November of 2024 Assessment & Plan (09/26/2023 8:43 AM FRANCHISE SALES MANAGER): I have ordered another CT scan [...] (03/15/2020): Added automatically from request for surgery [id number] Tobacco abuse 03/08/2020 Assessment & Plan (12/17/2024 10:44 AM CDT): The patient has a CAT scan scheduled on December 27, 2024. Assessment & Plan (09/03/2024 10:52 AM FRANCHISE SALES MANAGER): The patient has been encouraged to decrease smoking. The patient has a CT scan ordered for November of 2024 Assessment & Plan (12/31/2023 8:54 AM CDT): The patient recently resumed smoking. I did encourage the patient to continue to try to quit smoking. A lung cancer screening CTs been ordered for November of 2024 Assessment & Plan (09/26/2023 8:43 AM FRANCHISE SALES MANAGER): The patient has stopped smoking on August 11, 2023. Assessment & Plan (10/23/2022 9:32 AM FRANCHISE SALES MANAGER): Patient will continue to try to [...] 02/28/2021. Assessment & Plan (09/13/2020 10:12 AM FRANCHISE SALES MANAGER): The patient was educated on the [...] Dosepak. Assessment & Plan (09/03/2024 10:51 AM FRANCHISE SALES MANAGER): Due to ongoing symptoms, the patient [...] cough Assessment & Plan (09/26/2023 8:41 AM FRANCHISE SALES MANAGER): Patient continue to use Trelegy one [...] activity. Assessment & Plan (10/23/2022 9:31 AM FRANCHISE SALES MANAGER): Will continue with Trelegy. The patient [...] Advair. Assessment & Plan (09/13/2020 10:10 AM FRANCHISE SALES MANAGER): The patient will continue with Advair [...] CPAP. Assessment & Plan (09/03/2024 10:51 AM FRANCHISE SALES MANAGER): Due to continued symptoms, the patient will continue with Provigil 200 mg on a p.r.n. basis/daily Assessment & Plan (12/31/2023 8:52 AM CDT): The patient will continue with Provigil 200 mg daily/p.r.n.. I have refilled the medication I will refill for 1 year Assessment & Plan (09/26/2023 8:41 AM FRANCHISE SALES MANAGER): The patient continues to use Nuvigil 150 mg as a p.r.n. basis. The patient states she only uses it if she is very tired during the day are goes on long drives. Assessment & Plan (05/21/2023 10:18 AM CDT): The patient's hypersomnia is under control with Provigil 200 mg in the morning. Assessment & Plan (10/23/2022 9:31 AM FRANCHISE SALES MANAGER): Will continue Provigil 200 mg in the morning and on a p.r.n. basis. I have reordered the medication. Assessment & Plan (03/14/2021 9:30 AM CDT): The patient continues to benefit from Provigil 200 mg q.a.m. Assessment & Plan (09/13/2020 10:11 AM FRANCHISE SALES MANAGER): The patient will continue with Provigil [...] pressure. Assessment & Plan (09/03/2024 11:18 AM FRANCHISE SALES MANAGER): The patient is going to try to CPAP once again. The patient has 2 L of oxygen that she will need to bleed into the circuit. Assessment & Plan (12/31/2023 8:53 AM CDT): The patient is intolerant of CPAP. She uses 2 L of oxygen p.r.n.. The patient is utilizing positional therapy Assessment & Plan (09/26/2023 8:42 AM FRANCHISE SALES MANAGER): The patient continues to use positional [...] sleeping. Assessment & Plan (10/23/2022 9:31 AM FRANCHISE SALES MANAGER): I encouraged the patient to resume CPAP therapy. She is currently practicing positional therapy with 2 L of oxygen via nasal cannula while sleeping. DME [facility] Assessment & Plan (02/01/2022 12:34 PM CDT): The patient was encouraged to resume the use of her CPAP. She continues to use 2 L of oxygen at night while sleeping. Her DME is [facility] patient. The patient is going to [...] night. Assessment & Plan (09/13/2020 10:11 AM FRANCHISE SALES MANAGER): The patient was educated on the [...] bedtime. Assessment & Plan (09/03/2024 10:52 AM FRANCHISE SALES MANAGER): Due to continued symptoms, the patient will continue Requip 1 mg nightly Assessment & Plan (12/31/2023 8:53 AM CDT): The patient will continue with ropinirole 1 mg and iron supplementation. I have refilled the ropinirole and will refill for 1 year Assessment & Plan (09/26/2023 8:42 AM FRANCHISE SALES MANAGER): The patient already restart to use Requip 1 mg p.o. Q HS Assessment & Plan (05/21/2023 10:19 AM CDT): The PLMS are under control with Requip 1 mg at bedtime. Assessment & Plan (10/23/2022 9:32 AM FRANCHISE SALES MANAGER): The patient will continue Requip 1 [...] night Assessment & Plan (09/13/2020 10:12 AM FRANCHISE SALES MANAGER): The patient will continue with Requip 1 mg p.o. at bedtime to manage her periodic limb movement disorder. Assessment & Plan (03/08/2020 9:50 AM CDT): The patient will continue to take Requip 1 mg at bedtime. Patient states she is currently asymptomatic on this medical treatment. Encounters Date Type Department Care Team Description 12/28/2024 Telephone [facility] Pulmonary [place] [address] [place] [address] Letty Heart NP 12/28/2024 Orders Only [facility] Pulmonology [address] [place] [address] Francisco Reid MD Centrilobular emphysema (HCC); Chronic obstructive pulmonary disease, unspecified COPD type (HCC) 12/28/2024 Telephone [facility] [address] [place] [address] Frances Amaya RN Lung Screening 12/27/2024 8:00 AM CDT - 12/27/2024 11:59 PM CDT Hospital Encounter [facility] [address] [place] [address] Centrilobular emphysema (HCC); Lung nodules; Personal history of tobacco use Discharge Disposition: Discharge to home or self care 12/17/2024 10:15 AM CDT Office Visit [facility] Pulmonology [address] [place] [address] Evelyn Butler NP Centrilobular emphysema (HCC) (Primary Dx); Hypersomnia; Obstructive sleep apnea; Tobacco abuse; Lung nodules; Hypoxemia; Enlarged pulmonary artery (HCC); Periodic limb movement disorder 11/29/2024 Telephone [facility] Pulmonology [address] [place] [address] Letty Heart NP from Last 3 Months Immunizations Immunization Administration Dates Next Due Influenza, Quadrivalent, Spl it, Intramuscular 07/09/2019,08/16/2016 Influenza, Quadrivalent, Spl it, Preservative Free, Intramuscular 06/30/2020,07/05/2019,08/03/2018 Influenza, Trivalent, IM (MDV) 07/02/2017 Pneumococcal Conjugate PCV 13 02/05/2015 Pneumococcal Polysaccharide PPV23 08/16/2016 Surgical History Surgery Date Site/Laterality Comments CHOLECYSTECTOMY TONSILLECTOMY HYSTERECTOMY SMALL BOWEL RESECTION NECK SURGERY @ [facility] APPENDECTOMY 08/12/2023 SMALL INTESTINE SURGERY 08/01/2023 - [...] on file Legal Sex Female 7:58 AM FRANCHISE SALES MANAGER Gender Identity Not on file Sexual Orientation Not on file Obstetrics History Last Filed Vital Signs Vital Sign Reading Time Taken Comments Blood Pressure 141/87 12/17/2024 10:08 AM CDT Pulse 76 12/17/2024 10:08 AM CDT Temperature 36 C (96.8 F) 09/03/2024 10:49 AM FRANCHISE SALES MANAGER Respiratory Rate 22 12/17/2024 10:08 AM CDT Oxygen Saturation 93% 12/17/2024 10:08 AM CDT Inhaled Oxygen Concentration - - Weight 69.4 kg (153 lb) 12/27/2024 8:11 AM CDT Height 157.5 cm (5' 2) 12/27/2024 8:11 AM CDT Body Mass Index 27.98 12/27/2024 8:11 AM CDT Plan of Treatment Health Maintenance [...] Well Visit 65+ 12/03/2023 Lung Cancer Screening 03/27/2025 12/27/2024 , 12/26/2023, 09/24/2023, Additional history exists Influenza Vaccine (Season Ended) 2025 06/30/2020, 07/09/2019, 07/05/2019, Additional history exists Hepatitis C Screening Completed 01/09/2014 Medical Devices Implanted Type Area Dietary Services Director Device Identifier Shelf Expiration Date Model / Serial / Lot Medtronic Sofamor Danek [id number] Centerpiece 10mm Lateral Hole Open Door Color Coded Spine - [id number] Implanted:Qty: 3 on 04/11/2020 by Brandon Pryor MD at [facility] N/A: Spine Cervical Medtronic Inc [id number] / / Medtronic Sofamor Danek [id number] Centerpiece 2.6mm 7mm Self Tap Stab Grab Color Coded Spine Screw - [id number] Implanted:Qty: 6 on 04/11/2020 by Brandon Pryor MD at [facility] N/A: Spine Cervical Medtronic Inc [id number] / / Medtronic Sofamor Danek [id number] Centerpiece 2.6mm 5mm Self Tap Stab Grab Color Coded Spine Screw - [id number] Implanted:Qty: 6 on 04/11/2020 by Brandon Pryor MD at [facility] N/A: Spine Cervical Medtronic Inc [id number] / / Procedures Procedure Name Priority Date/Time Associated Diagnosis Comments CT LUNG CANCER SCREENING Schedule Routine, Read Routine (OP Routine) 12/27/2024 8:12 AM CDT Centrilobular emphysema (HCC) Lung nodules Personal history of tobacco use HEPATITIS PANEL, ACUTE Routine 01/09/2014 6:46 AM CDT SCREENING MAMMOGRAM 2D BILATERAL Routine 09/02/2012 7:42 AM FRANCHISE SALES MANAGER from Last 3 Months or Most [...] 8:38 AM - Electronically signed by Sharda Parker D.O. PS T: Report ID: [id number] Reading Location: [place] [address] Letty Heart DOOR TO DOOR SALESPERSON IMG CT PROCEDURES Final Res ult * Hepatitis panel, acute (01/09/2014 6:46 AM CDT) HepBsAg NONREACT NONREACTIVE 01/09/2014 10:06 AM [facility] [employer] HISTORICAL RESULTS Comment: Siemens CentaurXP using LASHAE (chemiluminescent immunoassay) technology. NONREACTIVE: IgM antibodies to Hepatitis B Surface antigen not detected. REACTIVE: IgM antibodies to Hepatitis B Surface antigen detected. Reactive results will be confirmed by neutralization testing. HBsAb (immune status) NONREACT NONREACTIVE 01/09/2014 10:06 AM [email or web address] HISTORICAL RESULTS Comment: Siemens CentaurXP using LASHAE (chemiluminescent immunoassay) technology. NONREACTIVE: IgM antibodies to Hepatitis B Surface antibody not detected. REACTIVE: IgM antibodies to Hepatitis B Surface antibody detected. Hep B core IgM NONREACT NONREACTIVE 4 10:46 AM [facility] [employer] HISTORICAL RESULTS Comment: Siemens CentaurXP using LASHAE (chemiluminescent immunoassay) technology. NONREACTIVE: IgM antibodies to Hepatitis B Core antigen not detected. EQUIVOCAL: IgM antibodies to Hepatitis B Core antigen may or may not be present. Obtain a new specimen and retest. REACTIVE: IgM antibodies to Hepatitis B Core antigen detected. Hep A IgM NONREACT NONREACTIVE 01/09/2014 10:[address] [facility] HISTORICAL RESULTS Comment: Siemens CentaurXP using LASHAE (chemiluminescent immunoassay) technology. NONREACTIVE: IgM antibodies to Hepatitis A not detected. This does not exclude possibility of exposure to Hepatitis A or early acute infection. EQUIVOCAL:IgM antibodies to Hepatitis A may or may not be present. Suggest recollection and retest. REACTIVE: Antibodies to Hepatitis A detected. Hep C Ab NONREACT NONREACTIVE 01/09/2014 10:[address] [facility] HISTORICAL RESULTS Comment: Siemens CentaurXP [...] MICROBIOLOGY - GENER AL ORDERABLES Final Result [facility] HISTORICAL RESULTS * Screening Mammogram 2D Bilateral (09/02/2012 7:42 AM FRANCHISE SALES MANAGER) Anatomical Region Laterality Modality Breast Bilateral Mammography 09/02/2012 7:42 AM FRANCHISE SALES MANAGER Impressions 09/02/2012 8:19 AM FRANCHISE SALES MANAGER No mammographic evidence of malignancy. Recommend routine annual screening mammography. ASSESSMENT: BIRADS: 1 - Negative THIS IS AN ELECTRONICALLY VERIFIED REPORT 09/02/2012 8:16 AM: Bel Rebolledo M.D. Bel Rebolledo M.D. KL:tobin 08:16 AM 08:16 AM [EOD] Narrative 09/02/2012 8:19 AM FRANCHISE SALES MANAGER EXAMINATION: Bilateral screening mammogram HISTORY: Routine [...] Recently Relevant to Health Maintenance Insurance MEDICARE [employer] MEDICARE [employer] MEDICARE ID[place] Advance Directives For more information, please contact: [phone] * Full Code (Latest Code Status on File) Date Activated Date Inactivated Comments 04/11/2020 7:55 PM 04/13/2020 3:39 PM Care Teams Oil Expeller Operator Relationship Specialty Start Date End Date Ernst Osorio MD [address] [place] [address] PCP - General Emergency Medicine 06/02/19
[2025-01-26 11:47] LABS: Alanine Aminotransferase 16 U/L (6-35); Albumin Level 4.5 g/dL (3.5-5.1); Alkaline Phosphatase 78 U/L (38-126); Anion Gap 7 mmol/L (4-12); Aspartate Amino Transferase 29 U/L (14-36); Bilirubin,Total 0.3 mg/dL (0.2-1.3); Blood Urea Nitrogen 14 mg/dL (7-17); Calcium 9.4 mg/dL (8.4-10.2); Carbon Dioxide 31 mmol/L (22-30); Chloride 102 mmol/L (98-107); Cholesterol 243 mg/dL (0-200); Estimated Glomerular Filt Rate > 60; Glucose 95 mg/dL (65-110); HDL Direct 70 mg/dL; Potassium 4.3 mmol/L (3.4-5.0); Sodium 140 mmol/L (137-145); Triglycerides 141 mg/dL (<150)
[2025-01-26 11:58] LABS: LDL Cholesterol Direct 111 mg/dL
[2025-01-26 12:11] LABS: Vitamin D 25 Hydroxy 21.6 ng/mL
== END 2025-01-26 10:45 | disposition home or self-care (01) ==
LOC: ANHLAB 10:46
PROVIDERS: PCP Emergency Medicine; Visit Provider Emergency Medicine
DX: E78.5 Hyperlipidemia, unspecified (principal); E55.9 Vitamin D deficiency, unspecified
CPT/HCPCS: 36415; 80053; 80061; 82306

== ENCOUNTER 2025-04-26 10:08 | Inpatient (IN) | payer MEDICARE, MEDICAID, SELFPAY ==
--- NOTE | ~2025-04-26 | XR_ITS ---
EXAMINATION: XR abdomen/kub 1V DATE: 05/03/2025 05:27 INDICATION: Small bowel obstruction TECHNIQUE: A supine view of the abdomen was obtained. COMPARISON: 05/02/2025 FINDINGS: Residual oral contrast material mixed with stool in the colon. No dilated gas- filled loops of small bowel to suggest obstruction. Cholecystectomy clips in right upper quadrant. Blunted left costophrenic angle consistent with small left pleural effusion. Mild opacities at the bilateral lung bases which could represent atelectasis or pneumonia. Heart size is normal. IMPRESSION: 1. Nonobstructive bowel gas pattern. 2. Small left pleural effusion with bibasilar opacities which represent atelectasis or pneumonia. Reviewed, dictated and finalized at location A. IMPRESSION: 1. Nonobstructive bowel gas pattern. 2. Small left pleural effusion with bibasilar opacities which represent atelect asis or pneumonia.
--- NOTE | ~2025-04-26 | XR_ITS ---
EXAMINATION: XR sm bowel follow through WS DATE: 05/01/2025 14:19 INDICATION: Small bowel obstruction TECHNIQUE: Transit Mix Operator radiograph(s) of the abdomen was/were obtained. Water-soluble oral contrast was administered by the patient's existing nasogastric tube, and sequential radiographs of the abdomen were obtained until oral contrast was noted to be in the proximal colon. COMPARISON: None. FINDINGS: Transit Mix Operator image demonstrates nasogastric tube with distal tip in proximal side port in the body the stomach. Cholecystectomy clips in right upper quadrant. Moderate amount of distal colonic stool. Again seen is a rectoanal anastomotic suture line. Transit time from the stomach to proximal colon was approximately 45-60 minutes. There is normal caliber and mucosal fold pattern throughout the small bowel. Terminal ileum is normal. No tethering or abnormal mass effect observed upon the small bowel with real-time fluoroscopy. IMPRESSION: 1. Normal small bowel follow-through with small bowel transit time of 45-60 minutes. Reviewed, dictated and finalized at location A. IMPRESSION: 1. Normal small bowel follow-through with small bowel transit time of 45-60 min utes.
--- NOTE | ~2025-04-26 | XR_ITS ---
Clinical history:Verify placement of NG tube EXAM:X-ray abdomen gastric tube TECHNIQUE:A single portable frontal image of the chest and abdomen was obtained Comparisons: X-ray abdomen 04/27/2025 FINDINGS: Nasogastric tube has been placed since the prior study. The nasogastric tube courses below the diaphragm, its tip projects over the lateral aspect of the left mid abdomen. Small opacities in the lower lungs. Moderate amount of air and stool in nondilated large bowel. Clips project over the right abdomen possibly cause a technical hips. IMPRESSION: Nasogastric tube has been placed since the prior study. The nasogastric tube courses below the diaphragm, its tip projects over the lateral aspect of the left mid abdomen. Reviewed, dictated and finalized at location Q. IMPRESSION: Nasogastric tube has been placed since the prior study. The nasogastric tube co urses below the diaphragm, its tip projects over the lateral aspect of the left mid abdomen.
--- NOTE | ~2025-04-26 | XR_ITS ---
EXAMINATION: XR abdomen/kub 1V DATE: 05/02/2025 05:49 INDICATION: Small bowel obstruction TECHNIQUE: A supine view of the abdomen was obtained. COMPARISON: 05/01/2025 FINDINGS: Moderate amount of gas and contrast scattered throughout the colon, the latter related to the small bowel follow-through study performed one day prior. No residual gas-filled or contrast filled loops of small bowel to suggest obstruction. Rectal anal anastomotic suture line. Cholecystectomy clips in right upper quadrant. Small left pleural effusion. Heart size is normal. IMPRESSION: 1. No dilated gas or contrast filled small bowel to suggest obstruction. 2. Small left pleural effusion. Reviewed, dictated and finalized at location A.
--- NOTE | ~2025-04-26 | US_ITS ---
EXAMINATION: US Abdomen limited INDICATION: Elevated liver enzymes. PROCEDURE: Realtime High Resolution abdomen ultrasound. COMPARISON: CT abdomen pelvis 11/24/2024 FINDINGS: There is a 1.0 x 1.3 x 1.0 cm cyst in the lateral segment of the left lobe of the liver. Mild intrahepatic biliary ductal dilatation. Gallbladder is surgically absent. No Sykes's sign. Portal vein is hepatopedal. Right kidney measures 11.2 x 4.0 x 5.1 cm. No right-sided hydronephrosis. There is a 3.4 cm right renal cyst. Pancreas was not adequately visualized for evaluation. IMPRESSION: 1. Mild intrahepatic biliary duct dilatation which may be secondary to a previous cholecystectomy. However, other etiologies are possible. If of concern, consider an MRCP for further assessment. 2. Liver cyst 3. Right renal cyst. 4. Pancreas was not adequately visualized for evaluation. Reviewed, dictated and finalized at location Q. IMPRESSION: 1. Mild intrahepatic biliary duct dilatation which may be secondary to a previo us cholecystectomy. However, other etiologies are possible. If of concern, cons ider an MRCP for further assessment. 2. Liver cyst 3. Right renal cyst. 4. Pancreas was not adequately visualized for evaluation.
--- NOTE | ~2025-04-26 | CT_ITS ---
EXAMINATION: CT abdomen pelvis w con DATE: 04/26/2025 12:00 INDICATION: Left lower quadrant pain. History of obstructions. TECHNIQUE: Computed tomography (CT) of the abdomen and pelvis was performed with intravenous contrast. The dose-length product was 360.20 mGy-cm. COMPARISON: 08/09/2023 FINDINGS: There are a few small reticular and bandlike opacities in the lower lungs likely atelectasis or scarring. Cholecystectomy. Mild intrahepatic biliary ductal dilatation, unchanged presumably secondary to previous cholecystectomy. Stable cyst in the left lobe of the liver. The liver is otherwise unremarkable. Spleen, adrenal glands and pancreas are unremarkable. Stable cyst in the right kidney. There are a few too small to characterize low-attenuation lesions in the left kidney similar to the prior study. Abdominal aorta is not aneurysmal. Thickening of the malik of the body of the stomach. No enlarged lymph nodes in the abdomen and pelvis identified. Anastomotic suture lines in bowel in the pelvis. There are few distended bowel loops in the pelvis. Short segment focal thickening of the malik of a bowel loop about the anastomotic suture line in the upper pelvis. Bones appear osteopenic. Multilevel degenerative change in the visualized spine. There are a few small bowel loops with thickened malik. Small amount of nonspecific fluid in the pelvis. IMPRESSION: 1. Thickening of the malik of the body of the stomach. Differential includes incomplete stomach wall distention, gastritis or mass. 2. Short segment focal thickening of the malik of a bowel loop about the anastomotic suture line in bowel in the upper pelvis. Differential includes incomplete bowel wall distention or an inflammatory/infectious process. 3. There are a few small bowel loops with thickened malik possibly secondary to enteritis. 4. Small amount of nonspecific fluid in the pelvis 5. There are a few distended loops of bowel in the pelvis. Differential includes ileus or developing bowel obstruction. Reviewed, dictated and finalized at location Q. IMPRESSION: 1. Thickening of the malik of the body of the stomach. Differential includes in complete stomach wall distention, gastritis or mass. 2. Short segment focal thickening of the malik of a bowel loop about the anasto motic suture line in bowel in the upper pelvis. Differential includes incomplet e bowel wall distention or an inflammatory/infectious process. 3. There are a few small bowel loops with thickened malik possibly secondary to enteritis. 4. Small amount of nonspecific fluid in the pelvis 5. There are a few distended loops of bowel in the pelvis. Differential include s ileus or developing bowel obstruction.
--- NOTE | ~2025-04-26 | XR_ITS ---
EXAMINATION: XR abdomen obstructive series DATE: 04/27/2025 09:06 INDICATION: Bowel obstruction TECHNIQUE: Supine and upright views of the abdomen. FINDINGS: Comparison to multiple prior studies sequentially, with oldest reviewed study dated 08/19/2023. The visualized lung parenchyma is normal.. There is moderate gas in the colon. Air-fluid level present in the stomach. Findings suggest ileus. Moderate colonic fecal loading. Gas and stool are seen throughout the colon to the level of the rectum. There is no free air. IMPRESSION: 1. Moderate gas in the colon with air-fluid level in the stomach, most likely ileus. No definite obstruction. Reviewed, dictated and finalized at location O.
--- NOTE | ~2025-04-26 | MR_ITS ---
EXAMINATION: MR MRCP wo/w con/w 3D wo ind DATE: 04/28/2025 11:39 INDICATION: Elevated liver function tests TECHNIQUE: Magnetic resonance imaging (MRI) of the abdomen was performed without and with 14 mL Multihance intravenous contrast. Sequences included coronal T2- weighted SS-FSE, coronal T2-weighted FS SS-FSE, coronal T2-weighted FS FIESTA, axial T2-weighted FS FIESTA, axial T2-weighted FIESTA, sagittal T2-weighted SS- FSE, axial T1-weighted dual-echo FSPGR, axial T2-weighted SS-FSE, axial T1- weighted LAVA, axial T2-weighted STIR FSE. Thick-slab T2-weighted FRFSE-XL images were obtained for magnetic resonance cholangiopancreatography (MRCP). Rotating maximum intensity projection 3-D reconstructions of the volumetric data were created by the technologist. Postcontrast sequences included a time course of axial T1-weighted LAVA. COMPARISON: CT dated 04/26/2025 FINDINGS: ABDOMEN MRI: Heart size is normal. No pericardial effusion. There is consolidation in the bilateral lower lobes which could represent atelectasis or pneumonia. Tiny bilateral pleural effusions. 1.5 cm nonenhancing T2 hyperintense cyst in the left hepatic lobe. Status post cholecystectomy. Spleen, pancreas and bilateral adrenal glands are normal. Bilateral T2 hyperintense nonenhancing renal cysts the larger on the right measuring 3.5 cm. There is persistent pseudo feces consistent with delayed transit within a dilated loop of small bowel in the central pelvis which measures up to 3.9 cm diameter with transition point evident on the prior CT at a small bowel anastomosis at the distal ileum consistent with a persistent small bowel obstruction. No pathologically enlarged abdominal or upper pelvic lymphadenopathy. T1 hyperintense, fat saturating hemangiomas at T10 and T11. ABDOMEN MRCP: Mild intrahepatic ductal or ductal dilation and mild dilation of the common bile duct to 11 mm which could be related to prior cholecystectomy. The common bile duct tapers distally with no evident obstructing mass or choledocholithiasis. Main pancreatic duct is normal. IMPRESSION: 1. Persistent small bowel obstruction with transition point on the prior CT the central pelvis at a small bowel anastomosis along the distal ileum. 2. Mild intra and extra hepatic biliary ductal dilation without evident obstructing stone or mass likely related to prior cholecystectomy. This is remained stable when compared with CT dated 11/05/2023. 3. Tiny bilateral pleural effusions with dependent consolidation the bilateral lower lobes which could represent atelectasis or pneumonia. Reviewed, dictated and finalized at location A. IMPRESSION: 1. Persistent small bowel obstruction with transition point on the prior CT the central pelvis at a small bowel anastomosis along the distal ileum. 2. Mild intra and extra hepatic biliary ductal dilation without evident obstruc ting stone or mass likely related to prior cholecystectomy. This is remained st able when compared with CT dated 11/05/2023. 3. Tiny bilateral pleural effusions with dependent consolidation the bilateral lower lobes which could represent atelectasis or pneumonia.
--- NOTE | ~2025-04-26 | XR_ITS ---
EXAMINATION: XR abdomen/kub 1V, 04/30/2025 11:12 CDT HISTORY: f/u sbo COMPARISON: No comparisons available. Technique: 1 view. Findings: Bowel gas pattern unremarkable. No obstruction. No free air. No abnormal calcifications No acute osseous abnormality. Nasogastric tube terminates in the mid stomach. Impression: 1. No acute abnormality. Reviewed, dictated and finalized at location A. Impression: 1. No acute abnormality.
--- NOTE | ~2025-04-26 | XR_ITS ---
XR abdomen/kub 1V 04/29/2025 07:59 Indication: Small bowel obstruction Procedure: KUB Comparison: Comparison to multiple prior studies sequentially, with oldest reviewed study dated 08/20/2023. Findings: NG tube in the stomach. There are cholecystectomy clips. Nonobstructive bowel gas pattern. Small left pleural effusion. There is right perihilar and left basilar airspace disease, suspicious for pneumonia. Impression: 1: Nonobstructive bowel gas pattern. 2: Bilateral airspace disease, suspicious for pneumonia. 3: Small left pleural effusion. Reviewed, dictated and finalized at location O. Impression: 1: Nonobstructive bowel gas pattern. 2: Bilateral airspace disease, suspicious for pneumonia. 3: Small left pleural effusion.
--- NOTE | ~2025-04-26 | XR_ITS ---
XR abdomen/kub 1V INDICATION: Evaluate NG tube position. TECHNIQUE: Limited KUB perform for evaluating NG tube . COMPARISON: Comparison to multiple prior studies sequentially, with oldest reviewed study dated 08/24/2023. FINDINGS: NG tube tip in the stomach. Visualized bowel gas pattern is unremarkable.There are cholecystectomy clips. IMPRESSION: 1: NG tube tip in the stomach. Reviewed, dictated and finalized at location O.
[2025-04-26 10:21] VITALS: BP 135/91; PULSE 86; RESP 20; TEMP 36.2; O2SAT 97
--- OUTSIDE RECORDS SUMMARY | 2025-04-26 10:36 | XMS_ITS | Clinical Summary ---
Author Organization [facility] Address [address] [place] [address] Care Team Providers Care Rn Ambulatory Name Role Phone Ernst Osorio MD Primary Care Provider + [phone] Allergies Active Allergy Reactions Criticality Noted Date [...] Encounters Date Type Department Care Team Description 04/05/2025 External Device Data ST[facility] ABSTRACTION Provider, Abstract 03/16/2025 External Device Data [facility] ABSTRACTION Provider, Abstract 03/15/2025 External Device Data [facility] ABSTRACTION Provider, Abstract 02/22/2025 External Device Data [facility] ABSTRACTION Provider, Abstract from Last 3 Months Family History Relation Name Status Comments Brother 1 Brother 2 Father Mother Sister 1 Alive Sister 2 Alive Son 1 Alive Son 2 Alive Son 3 Alive Son 4 Alive Son 5 Alive Social History Tobacco Use Types Packs/Day Years Used Date Smoking Tobacco: Every Day Cigarettes 0.5 31 Started: 04/13/1994 Smokeless Tobacco: Never Tobacco Cessation:Ready [...] Description 05/26/2025 8:30 AM CDT Office Visit [facility] Oncology and Hematology - [place] [address] [facility] [address] [place] [address] Bryant Valenzuela MD [address] [place] [address] Health Maintenance Due Date Last [...] - PCV20 or PCV21) 08/16/2021 08/16/2016, 02/05/2015 INFLUENZA VACCINE (#1) 2025 0, 07/09/2019, 07/05/2019, Additional history exists BREAST CANCER SCREENING 10/25/2025 10/25/19 25, 10/25/2024, 03/28/2021, Additional history exists OSTEOPOROSIS SCREENING 12/24/2029 12/24/2024 COLORECTAL SCREENING 07/28/2033 07/28/2023, 04/05/20 Colorectal Cancer Screening 07/28/2033 Insurance MEDICARE PART A AND B MEDICAID [place] MEDICARE PART A AND B MEDICAID [place] Care Teams Rn Ambulatory Relationship Specialty Start Date End Date Ernst Osorio MD [address] [facility] [address] [place] [address] PCP - General Internal Medicine 01/04/22
--- OUTSIDE RECORDS SUMMARY | 2025-04-26 10:36 | XMS_ITS | Encounter Summary ---
Author Organization [facility] Care Team Providers Care Needle Loom Setter Name Role Phone Mary Pitts LPN Unavailable [phone] Ernst Osorio MD Primary Care Provide r Encounter Details Date Type Department Care Team (Latest Contact Info) Description 01/26/2016 Orders Only [facility]IN[facility] ProviderDeanne MD [address] [place] [id number] Social History Tobacco Use Types Packs/Day Years Used Date Smoking Tobacco: Never Assessed Comments Unknown Sex and Gender Information Value Date Recorded Sex Assigned at Not on file Legal Sex Female 7:58 AM OILER BANDER Gender Identity Not on file Sexual Orientation [...] on filedocumented in this encounter Care Teams Needle Loom Setter Relationship Specialty Start Date End Date Ernst Osorio MD [address] [place] [address] PCP - General Emergency Medicine 06/02/19 Mary Pitts, HALEY [address] [place] [address] Building Code Administrator 07/08/17 07/08/17 documented as of this encounter
--- OUTSIDE RECORDS SUMMARY | 2025-04-26 10:36 | XMS_ITS | Encounter Summary ---
Author Organization [facility] [employer] [facility] Address [address] [place] [address] Care Team Providers Care Journeyman Pipefitter Name Role Phone Ernst Osorio MD Primary Care Provider [phone] Encounter Details Date Type Department Care Team ([facility] Contact Info) Description 09/15/2023 Telephone [facility] Oncology and Hematology [place] [address] [place] [address] Bryant Valenzuela MD [address] [place], [place] [address] [address] [place] [address] Social History Tobacco Use Types Packs/Day [...] Description 05/26/2025 8:30 AM CDT Office Visit [facility] Oncology and Hematology - [place] [address] [place] [address] Bryant Valenzuela MD [address] [place] [address] documented as of this encounter Visit Diagnoses Not on filedocumented in this encounter Care Teams Journeyman Pipefitter Relationship Specialty Start Date End Date Ernst Osorio MD [address] [place] [id number] PCP - General Internal Medicine 01/04/22 documented as of this encounter
--- OUTSIDE RECORDS SUMMARY | 2025-04-26 10:36 | XMS_ITS | Clinical Summary ---
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 Active DULoxetine DR (CYMBALTA) 30 [...] 25 mg tablet 03/12/20 21 Active polyethylene glycol-electro lytes 420 gram solution 03/12/20 21 Active FeroSuL 325 mg (65 mg iron) tablet Take 1 tablet (325 mg total) by mouth 2 (two) times a day 11/15/19 22 Active cyclobenzaprin e (FLEXERIL) 5 mg tablet Take 1 tablet (5 mg total) by mouth 3 (three) times a day as needed for muscle spasms 10/10/19 23 Active guaiFENesin ER (MUCINEX) 600 mg 12 hr tabletIndicati ons:Centrilobu lar emphysema (HCC) Take 2 tablets (1,200 mg total) by mouth 2 (two) times a day 120 tablet 11 10/23/19 23 Active amLODIPine (NORVASC) 5 mg tablet Take 1 tablet (5 mg total) by mouth every morning 08/05/20 23 Active rOPINIRole (REQUIP) 1 mg tabletIndicati ons:Periodic limb movement disorder Take 1 tablet (1 mg total) by mouth nightly 90 tablet 3 12/31/19 24 Active Additional Information Patient not taking.Reported on 12/17/2024 fluticasone propionate (FLONASE) 50 mcg/actuation nasal sprayIndicatio ns:Centrilobul ar emphysema (HCC) SHAKE LIQUID AND USE 2 SPRAYS IN EACH NOSTRIL DAILY 16 g 6 08/17/20 24 Active modafiniL (PROVIGIL) 200 mg tabletIndicati ons:Sleepiness Due To Obstructive Sleep Apnea Take 1 tablet (200 mg total) by mouth daily 90 tablet 3 09/03/19 25 Active Additional Information Patient not taking.Reported on 12/17/2024 albuterol HFA (PROVENTIL HFA,VENTOLIN HFA,PROAIR HFA) 90 mcg/actuation inhalerIndicat ions:Centrilob ular emphysema (HCC) INHALE 2 PUFFS BY MOUTH EVERY 6 HOURS NEEDED FOR WHEEZING. 25.5 g 3 11/23/19 25 Active methylPREDNISo lone (Medrol, Qasim,) 4 mg Dosepack follow package directions 1 packet 12/18/19 25 Active albuterol 2.5 mg /3 mL (0.083 %) nebulizer solutionIndica tions:Chronic obstructive pulmonary disease, unspecified COPD type (HCC) Take 3 mL (2.5 mg total) by nebulization every 6 (six) hours as needed for wheezing 120 mL 3 12/29/19 25 Active Trelegy Ellipta 100-62.5-25 mcg inhaler INHALE 1 PUFF BY MOUTH DAILY 60 each 3 04/11/20 25 Active Trelegy Ellipta 100-62.5-25 mcg inhaler INHALE 1 PUFF BY MOUTH DAILY 60 each 3 11/23/19 25 025 Discontinued Active Problems Problem Noted Date Diagnosed Date Hypoxemia 09/03/2024 Assessment & Plan (09/03/2024 10:53 AM ADMISSION SPECIALIST): Due to continued symptoms, patient continue oxygen 2.5 L with activity and the patient will continue 2 L of oxygen via nasal cannula at night while sleeping 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 The patient was informed that untreated sleep apnea and also Chronic obstructive pulmonary disease can lead to pulmonary hypertension. Primary hypertension 09/26/2023 Assessment & Plan (12/31/2023 8:53 AM CDT): Will continue to follow with PCP Assessment & Plan (09/26/2023 8:43 AM ADMISSION SPECIALIST): I have ordered an echocardiogram. Lung nodules 05/21/2023 Assessment & Plan (12/17/2024 10:44 AM CDT): The patient has a CAT scan on December 27, 2024. Assessment & Plan (09/03/2024 10:53 AM ADMISSION SPECIALIST): CT scan ordered for November of 2024 Assessment & Plan (12/31/2023 8:53 AM CDT): Patient continues to have pulmonary nodules monitored by CT scanning. A CT scan has been ordered for November of 2024 Assessment & Plan (09/26/2023 8:43 AM ADMISSION SPECIALIST): I have ordered another CT scan for [...] (03/15/2020): Added automatically from request for surgery [id number] Tobacco abuse 03/08/2020 Assessment & Plan (12/17/2024 10:44 AM CDT): The patient has a CAT scan scheduled on December 27, 2024. Assessment & Plan (09/03/2024 10:52 AM ADMISSION SPECIALIST): The patient has been encouraged to decrease smoking. The patient has a CT scan ordered for November of 2024 Assessment & Plan (12/31/2023 8:54 AM CDT): The patient recently resumed smoking. I did encourage the patient to continue to try to quit smoking. A lung cancer screening CTs been ordered for November of 2024 Assessment & Plan (09/26/2023 8:43 AM ADMISSION SPECIALIST): The patient has stopped smoking on August 11, 2023. Assessment & Plan (10/23/2022 9:32 AM ADMISSION SPECIALIST): Patient will continue to try to decrease [...] 02/28/2021. Assessment & Plan (09/13/2020 10:12 AM ADMISSION SPECIALIST): The patient was educated on the need [...] Dosepak. Assessment & Plan (09/03/2024 10:51 AM ADMISSION SPECIALIST): Due to ongoing symptoms, the patient will [...] cough Assessment & Plan (09/26/2023 8:41 AM ADMISSION SPECIALIST): Patient continue to use Trelegy one inhalation [...] activity. Assessment & Plan (10/23/2022 9:31 AM ADMISSION SPECIALIST): Will continue with Trelegy. The patient has [...] Advair. Assessment & Plan (09/13/2020 10:10 AM ADMISSION SPECIALIST): The patient will continue with Advair as [...] CPAP. Assessment & Plan (09/03/2024 10:51 AM ADMISSION SPECIALIST): Due to continued symptoms, the patient will continue with Provigil 200 mg on a p.r.n. basis/daily Assessment & Plan (12/31/2023 8:52 AM CDT): The patient will continue with Provigil 200 mg daily/p.r.n.. I have refilled the medication I will refill for 1 year Assessment & Plan (09/26/2023 8:41 AM ADMISSION SPECIALIST): The patient continues to use Nuvigil 150 mg as a p.r.n. basis. The patient states she only uses it if she is very tired during the day are goes on long drives. Assessment & Plan (05/21/2023 10:18 AM CDT): The patient's hypersomnia is under control with Provigil 200 mg in the morning. Assessment & Plan (10/23/2022 9:31 AM ADMISSION SPECIALIST): Will continue Provigil 200 mg in the morning and on a p.r.n. basis. I have reordered the medication. Assessment & Plan (03/14/2021 9:30 AM CDT): The patient continues to benefit from Provigil 200 mg q.a.m. Assessment & Plan (09/13/2020 10:11 AM ADMISSION SPECIALIST): The patient will continue with Provigil 200 [...] pressure. Assessment & Plan (09/03/2024 11:18 AM ADMISSION SPECIALIST): The patient is going to try to CPAP once again. The patient has 2 L of oxygen that she will need to bleed into the circuit. Assessment & Plan (12/31/2023 8:53 AM CDT): The patient is intolerant of CPAP. She uses 2 L of oxygen p.r.n.. The patient is utilizing positional therapy Assessment & Plan (09/26/2023 8:42 AM ADMISSION SPECIALIST): The patient continues to use positional therapy. [...] sleeping. Assessment & Plan (10/23/2022 9:31 AM ADMISSION SPECIALIST): I encouraged the patient to resume CPAP therapy. She is currently practicing positional therapy with 2 L of oxygen via nasal cannula while sleeping. [facility] Assessment & Plan (02/01/2022 12:34 PM CDT): The patient was encouraged to resume the use of her CPAP. She continues to use 2 L of oxygen at night while sleeping. Her DME is [facility]. The patient is going to [...] night. Assessment & Plan (09/13/2020 10:11 AM ADMISSION SPECIALIST): The patient was educated on the need [...] bedtime. Assessment & Plan (09/03/2024 10:52 AM ADMISSION SPECIALIST): Due to continued symptoms, the patient will continue Requip 1 mg nightly Assessment & Plan (12/31/2023 8:53 AM CDT): The patient will continue with ropinirole 1 mg and iron supplementation. I have refilled the ropinirole and will refill for 1 year Assessment & Plan (09/26/2023 8:42 AM ADMISSION SPECIALIST): The patient already restart to use Requip 1 mg p.o. Q HS Assessment & Plan (05/21/2023 10:19 AM CDT): The PLMS are under control with Requip 1 mg at bedtime. Assessment & Plan (10/23/2022 9:32 AM ADMISSION SPECIALIST): The patient will continue Requip 1 mg [...] night Assessment & Plan (09/13/2020 10:12 AM ADMISSION SPECIALIST): The patient will continue with Requip 1 mg p.o. at bedtime to manage her periodic limb movement disorder. Assessment & Plan (03/08/2020 9:50 AM CDT): The patient will continue to take Requip 1 mg at bedtime. Patient states she is currently asymptomatic on this medical treatment. Encounters Date Type Department Care Team Description 04/13/2025 Telephone [facility] Pulmonology [address] [place] [address] [address] [place] [address] Charley Michaels MA CPAP NOT RECEIVED 04/08/2025 Telephone [facility] Pulmonology [facility] [facility] [address] [place] [address] Charley Michaels MA CPAP SUPPLIES 04/07/2025 Telephone [facility] [address], [place] [id number] Francisco Reid MD Home sleep study results / cpap order 04/05/2025 8:48 AM CDT - 04/05/2025 11:59 PM CDT Hospital Encounter [facility] Sleep [facility] [address] [place] [address] Obstructive sleep apnea Discharge Disposition: Discharge to home or self care 03/14/2025 Telephone [facility] Pulmonology [address] [facility] [address] [place] [phone] Alisa Collado MA from Last 3 Months Immunizations Immunization Administration Dates Next Due Influenza, Quadrivalent, Spl it, Intramuscular 07/09/2019,08/16/2016 Influenza, Quadrivalent, Spl it, Preservative Free, Intramuscular 06/30/2020,07/05/2019,08/03/2018 Influenza, Trivalent, IM (MDV) 07/02/2017 Pneumococcal Conjugate PCV 13 02/05/2015 Pneumococcal Polysaccharide PPV23 08/16/2016 Surgical History Surgery Date Site/Laterality Comments CHOLECYSTECTOMY TONSILLECTOMY HYSTERECTOMY SMALL BOWEL RESECTION NECK SURGERY @ [place] APPENDECTOMY 08/12/2023 SMALL INTESTINE SURGERY 08/01/2023 - 08/31/2023 partial removal Medical History Medical History Date Comments Cigarette nicotine dependence in remission 08/16 COPD (chronic obstructive pulmonary disease) Sleep apnea Family History Medical History Relation [...] on file Legal Sex Female 7:58 AM ADMISSION SPECIALIST Gender Identity Not on file Sexual Orientation Not on file Obstetrics History Last Filed Vital Signs Vital Sign Reading Time Taken Comments Blood Pressure 141/87 12/17/2024 10:08 AM CDT Pulse 76 12/17/2024 10:08 AM CDT Temperature 36 C (96.8 F) 09/03/2024 10:49 AM ADMISSION SPECIALIST Respiratory Rate 22 12/17/2024 10:08 AM CDT [...] 12/26/2023, 09/24/2023, Additional history exists Influenza Vaccine (#1) 2025 , 07/09/2019, 07/05/2019, Additional history exists Hepatitis C Screening Completed 01/09/2014 Medical Devices Implanted Type Area Supervisor Boarding Device Identifier Shelf Expiration Date Model / Serial / Lot Medtronic Sofamor Danek [id number] Centerpiece 10mm Lateral Hole Open Door Color Coded Spine - [id number] Implanted:Qty: 3 on 04/11/2020 by Brandon Pryor MD at [facility] N/A: Spine Cervical Med[employer]onic Inc [id number] / / Medtronic Sofamor Danek [id number] Centerpiece 2.6mm 7mm Self Tap Stab Grab Color Coded Spine Screw - [id number] Implanted:Qty: 6 on 04/11/2020 by Brandon Pryor MD at [facility] N/A: Spine Cervical Medtronic Inc [id number] / / Medtronic Sofamor Danek [id number] Centerpiece 2.6mm 5mm Self Tap Stab Grab Color Coded Spine Screw - [id number] Implanted:Qty: 6 on 04/11/2020 by Brandon Pryor MD at [facility] N/A: Spine Cervical Medtronic Inc [id number] / / Procedures Procedure Name Priority Date/Time Associated Diagnosis Comments PORTABLE/HOME SLEEP STUDY Routine 04/05/2025 8:48 AM CDT Obstructive sleep apnea CT LUNG CANCER SCREENING Schedule Routine, Read Routine (OP Routine) 12/27/2024 8:12 AM CDT Centrilobular emphysema (HCC) Lung nodules Personal history of tobacco use HEPATITIS PANEL, ACUTE Routine 01/09/2014 6:46 AM CDT SCREENING MAMMOGRAM 2D BILATERAL Routine 09/02/2012 7:42 AM ADMISSION SPECIALIST from Last 3 Months or Most Recently Relevant to Health Maintenance Results * Portable/Home Sleep Study (04/05/2025 8:48 AM CDT) Evelyn Butler NP SLEEP CENTER ORDERABLES Final Result Performing Organization Address City/State/[facility] Co de Phone Number [facility] [address] [place] [address] * CT Lung Cancer Screening (12/27/2024 8:12 [...] Sharda Parker D.O. PS T: Report ID: [id number] Reading Location: [place] [address] [facility] VACUUM METALIZER OPERATOR IMG CT PROCEDURES Final Res ult * [...] core IgM NONREACT NONREACTIVE 4 10:46 AM [facility] HISTORICAL RESULTS Comment: Siemens CentaurXP using LASHAE (chemiluminescent immunoassay) technology. NONREACTIVE: IgM antibodies to Hepatitis B Core antigen not detected. EQUIVOCAL: IgM antibodies to Hepatitis B Core antigen may or may not be present. Obtain a new specimen and retest. REACTIVE: IgM antibodies to Hepatitis B Core antigen detected. Hep A IgM NONREACT NONREACTIVE 01/09/2014 10:46 AM [facility] Comment: Siemens CentaurXP using LASHAE [...] MICROBIOLOGY - GENER AL ORDERABLES Final Result [facility] HISTORICAL RESULTS * Screening Mammogram 2D Bilateral (09/02/2012 7:42 AM ADMISSION SPECIALIST) Anatomical Region Laterality Modality Breast Bilateral Mammography 09/02/2012 7:42 AM ADMISSION SPECIALIST Impressions 09/02/2012 8:19 AM ADMISSION SPECIALIST No mammographic evidence of malignancy. Recommend routine annual screening mammography. ASSESSMENT: BIRADS: 1 - Negative THIS IS AN ELECTRONICALLY VERIFIED REPORT 09/02/2012 8:16 AM: Bel Rebolledo M.D. Bel Rebolledo M.D. KL:tobin 08:16 AM 08:16 AM [EOD] Narrative 09/02/2012 8:19 AM ADMISSION SPECIALIST EXAMINATION: Bilateral screening mammogram HISTORY: Routine screening [...] relative to the prior studies. Procedure Note ProviderDeanne MD - 01/16/2021 EXAMINATION: Bilateral screening mammogram HISTORY: [...] 08:16 AM [EOD] Gama Dada Sheth MD IM MAMMO PROCEDURES Final Result from Last 3 Months or Most Recently Relevant to Health Maintenance Insurance MEDICARE [facility] MEDICARE IDPA Advance Directives For more information, please contact: [phone] * Full Code (Latest Code Status on File) Date Activated Date Inactivated Comments 04/11/2020 7:55 PM 04/13/2020 3:39 PM Care Teams Receiving Specialist Relationship Specialty Start Date End Date Ernst Osorio MD [address] [place], [place] [id number] PCP - General Emergency Medicine 06/02/19
[2025-04-26] MEDS: SODIUM CHLORIDE 0.9% IV 1,000 ML 999 ML IV CONT (11:40)
[2025-04-26] MEDS: ONDANSETRON INJ 4 MG/2 ML VIAL IV PUSH ×3 (11:41→21:19)
[2025-04-26] MEDS: MORPHINE SULFATE (*CRX) 4 MG/ML INJ IV PUSH ×4 (11:42→21:19)
[2025-04-26 11:43] LABS: Hematocrit 44.7 % (37.0-47.0); Hemoglobin 14.7 g/dL (12.0-15.0); Immature Granulocyte Percent A 0.6 % (0-0.5); Lymphocytes Absolute Auto 2.27 K/mm3 (0.9-3.2); Mean Corpuscular HGB Conc 32.9 g/dl (32-36); Mean Corpuscular Hemoglobin 31.5 pg (26-34); Mean Corpuscular Volume 95.7 fl (80-100); Nucleated Red Blood Cells Absolute Auto 0.000 K/mm3 (0.0-0.012); Nucleated Red Blood Cells Perc 0.0 % (0.0-0.2); Platelet Count Result 363 k/mm3 (150-375); Red Blood Count 4.67 M/mm3 (4.2-5.4); White Blood Count 12.8 K/mm3 (4.5-10.0)
--- OUTSIDE RECORDS SUMMARY | 2025-04-26 11:45 | XMS_ITS | Encounter Summary ---
Author Organization [facility] [employer] [facility] Address [address] [place] [address] Care Team Providers Care Pepper Picker Name Role Phone Ernst Osorio MD Primary Care Provider [phone] Encounter Details Date Type Department Care Team ([facility] Contact Info) Description 09/15/2023 Telephone [facility] Oncology and Hematology Bhupendra [address] [place] [address] Bryant Valenzuela MD [address] [place], [place] [address] [place] [phone] Social History Tobacco Use Types Packs/Day [...] Description 05/26/2025 8:30 AM CDT Office Visit [facility] Oncology [facility]ology - Bhupendra [address] [place] [address] Bryant Valenzuela MD [address] [employer] [address] [place] [phone] documented as of this encounter Visit Diagnoses Not on filedocumented in this encounter Care Teams Pepper Picker Relationship Specialty Start Date End Date Ernst Osorio MD [address] [place] [phone] PCP - General Internal Medicine 01/04/22 documented as of this encounter
--- OUTSIDE RECORDS SUMMARY | 2025-04-26 11:45 | XMS_ITS | Clinical Summary ---
Author Organization [facility] Address [address] [facility] [place] [address] Care Team Providers Care Deputy District Customs Director Name Role Phone Ernst Osorio MD Primary Care Provider + [phone] Allergies Active Allergy Reactions Criticality Noted Date [...] Description 05/26/2025 8:30 AM CDT Office Visit [facility] Oncology and Hematology - [place] [address] [facility] [address] [place] [address] Bryant Valenzuela MD [address] [facility] [address] [place] [address] Health Maintenance Due Date Last [...] [place] Care Teams Deputy District Customs Director Relationship Specialty Start Date End Date Ernst Osorio MD [address] [facility] [address] [place] [address] PCP - General Internal Medicine 01/04/22
--- OUTSIDE RECORDS SUMMARY | 2025-04-26 11:45 | XMS_ITS | Clinical Summary ---
Author Organization [facility] at [facility] Office Center Address [address] [place] [address] Care Team Providers Care Operational Risk Manager Name Role Phone Ernst Osorio MD Primary Care Provide r Allergies Active Allergy Reactions Criticality Noted Date Comments Adhesive Tape-Silicones Rash Medium 12/04/2018 Rash Amoxicillin Hives Medium 12/04/2018 hives Latex Rash Medium 01/04/2022 Penicillins Hives Medium 04/11/2020 Venom-Honey Bee Swelling Medium 01/04/2022 Medications docusate sodium (DOK) 100 mg tabletIndicati ons:constipati on Take 3 tablets (300 mg total) by mouth preload supervisor before breakfast Active DULoxetine DR (CYMBALTA) 30 [...] 09/03/2024 Assessment & Plan (09/03/2024 10:53 AM FOAM RUBBER MOLDER): Due to continued symptoms, patient continue oxygen 2.5 L with activity and the patient will continue 2 L of oxygen via nasal cannula at night while sleeping 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 The patient was informed that untreated sleep apnea and also Chronic obstructive pulmonary disease can lead to pulmonary hypertension. Primary hypertension 09/26/2023 Assessment & Plan (12/31/2023 8:53 AM CDT): Will continue to follow with PCP Assessment & Plan (09/26/2023 8:43 AM FOAM RUBBER MOLDER): I have ordered an echocardiogram. Lung nodules 05/21/2023 Assessment & Plan (12/17/2024 10:44 AM CDT): The patient has a CAT scan on December 27, 2024. Assessment & Plan (09/03/2024 10:53 AM FOAM RUBBER MOLDER): CT scan ordered for November of 2024 Assessment & Plan (12/31/2023 8:53 AM CDT): Patient continues to have pulmonary nodules monitored by CT scanning. A CT scan has been ordered for November of 2024 Assessment & Plan (09/26/2023 8:43 AM FOAM RUBBER MOLDER): I have ordered another CT scan for [...] (03/15/2020): Added automatically from request for surgery [id number] Tobacco abuse 03/08/2020 Assessment & Plan (12/17/2024 10:44 AM CDT): The patient has a CAT scan scheduled on December 27, 2024. Assessment & Plan (09/03/2024 10:52 AM FOAM RUBBER MOLDER): The patient has been encouraged to decrease smoking. The patient has a CT scan ordered for November of 2024 Assessment & Plan (12/31/2023 8:54 AM CDT): The patient recently resumed smoking. I did encourage the patient to continue to try to quit smoking. A lung cancer screening CTs been ordered for November of 2024 Assessment & Plan (09/26/2023 8:43 AM FOAM RUBBER MOLDER): The patient has stopped smoking on August 11, 2023. Assessment & Plan (10/23/2022 9:32 AM FOAM RUBBER MOLDER): Patient will continue to try to decrease [...] 02/28/2021. Assessment & Plan (09/13/2020 10:12 AM FOAM RUBBER MOLDER): The patient was educated on the need [...] Dosepak. Assessment & Plan (09/03/2024 10:51 AM FOAM RUBBER MOLDER): Due to ongoing symptoms, the patient will [...] cough Assessment & Plan (09/26/2023 8:41 AM FOAM RUBBER MOLDER): Patient continue to use Trelegy one inhalation [...] activity. Assessment & Plan (10/23/2022 9:31 AM FOAM RUBBER MOLDER): Will continue with Trelegy. The patient has [...] Advair. Assessment & Plan (09/13/2020 10:10 AM FOAM RUBBER MOLDER): The patient will continue with Advair as [...] CPAP. Assessment & Plan (09/03/2024 10:51 AM FOAM RUBBER MOLDER): Due to continued symptoms, the patient will continue with Provigil 200 mg on a p.r.n. basis/daily Assessment & Plan (12/31/2023 8:52 AM CDT): The patient will continue with Provigil 200 mg daily/p.r.n.. I have refilled the medication I will refill for 1 year Assessment & Plan (09/26/2023 8:41 AM FOAM RUBBER MOLDER): The patient continues to use Nuvigil 150 mg as a p.r.n. basis. The patient states she only uses it if she is very tired during the day are goes on long drives. Assessment & Plan (05/21/2023 10:18 AM CDT): The patient's hypersomnia is under control with Provigil 200 mg in the morning. Assessment & Plan (10/23/2022 9:31 AM FOAM RUBBER MOLDER): Will continue Provigil 200 mg in the morning and on a p.r.n. basis. I have reordered the medication. Assessment & Plan (03/14/2021 9:30 AM CDT): The patient continues to benefit from Provigil 200 mg q.a.m. Assessment & Plan (09/13/2020 10:11 AM FOAM RUBBER MOLDER): The patient will continue with Provigil 200 [...] pressure. Assessment & Plan (09/03/2024 11:18 AM FOAM RUBBER MOLDER): The patient is going to try to CPAP once again. The patient has 2 L of oxygen that she will need to bleed into the circuit. Assessment & Plan (12/31/2023 8:53 AM CDT): The patient is intolerant of CPAP. She uses 2 L of oxygen p.r.n.. The patient is utilizing positional therapy Assessment & Plan (09/26/2023 8:42 AM FOAM RUBBER MOLDER): The patient continues to use positional therapy. [...] sleeping. Assessment & Plan (10/23/2022 9:31 AM FOAM RUBBER MOLDER): I encouraged the patient to resume CPAP therapy. She is currently practicing positional therapy with 2 L of oxygen via nasal cannula while sleeping. [facility] Assessment & Plan (02/01/2022 12:34 PM CDT): The patient was encouraged to resume the use of her CPAP. She continues to use 2 L of oxygen at night while sleeping. Her DME is [facility] [place] [facility]. The patient is going to [...] night. Assessment & Plan (09/13/2020 10:11 AM FOAM RUBBER MOLDER): The patient was educated on the need [...] bedtime. Assessment & Plan (09/03/2024 10:52 AM FOAM RUBBER MOLDER): Due to continued symptoms, the patient will continue Requip 1 mg nightly Assessment & Plan (12/31/2023 8:53 AM CDT): The patient will continue with ropinirole 1 mg and iron supplementation. I have refilled the ropinirole and will refill for 1 year Assessment & Plan (09/26/2023 8:42 AM FOAM RUBBER MOLDER): The patient already restart to use Requip 1 mg p.o. Q HS Assessment & Plan (05/21/2023 10:19 AM CDT): The PLMS are under control with Requip 1 mg at bedtime. Assessment & Plan (10/23/2022 9:32 AM FOAM RUBBER MOLDER): The patient will continue Requip 1 mg [...] night Assessment & Plan (09/13/2020 10:12 AM FOAM RUBBER MOLDER): The patient will continue with Requip 1 mg p.o. at bedtime to manage her periodic limb movement disorder. Assessment & Plan (03/08/2020 9:50 AM CDT): The patient will continue to take Requip 1 mg at bedtime. Patient states she is currently asymptomatic on this medical treatment. Encounters Date Type Department Care Team Description 04/13/2025 Telephone [facility] [address] [place] [address] [address] [place] [address] Charley Michaels MA CPAP NOT RECEIVED 04/08/2025 Telephone [facility] Pul[facility] [facility] [address] [place] [address] Charley Michaels MA CPAP SUPPLIES 04/07/2025 Telephone [facility] [address] [place], [place] [id number] Francisco Reid MD Home sleep study results / cpap order 04/05/2025 8:48 AM CDT - 04/05/2025 11:59 PM CDT Hospital Encounter [facility] [address] [place] [address] Obstructive sleep apnea Discharge Disposition: Discharge to home or self care 03/14/2025 Telephone [facility] [address] [facility] [address] [place] [phone] Alisa Collado MA from Last 3 Months Immunizations Immunization Administration Dates Next Due Influenza, Quadrivalent, Spl it, Intramuscular 07/09/2019,08/16/2016 Influenza, Quadrivalent, Spl it, Preservative Free, Intramuscular 06/30/2020,07/05/2019,08/03/2018 Influenza, Trivalent, IM (MDV) 07/02/2017 Pneumococcal Conjugate PCV 13 02/05/2015 Pneumococcal Polysaccharide PPV23 08/16/2016 Surgical History Surgery Date Site/Laterality Comments CHOLECYSTECTOMY TONSILLECTOMY HYSTERECTOMY SMALL BOWEL RESECTION NECK SURGERY @ [place] APPENDECTOMY 08/12/2023 SMALL INTESTINE SURGERY 08/01/2023 - [...] on file Legal Sex Female 7:58 AM FOAM RUBBER MOLDER Gender Identity Not on file Sexual Orientation Not on file Obstetrics History Last Filed Vital Signs Vital Sign Reading Time Taken Comments Blood Pressure 141/87 12/17/2024 10:08 AM CDT Pulse 76 12/17/2024 10:08 AM CDT Temperature 36 C (96.8 F) 09/03/2024 10:49 AM FOAM RUBBER MOLDER Respiratory Rate 22 12/17/2024 10:08 AM CDT [...] Completed 01/09/2014 Medical Devices Implanted Type Area Internetworking Technician Device Identifier Shelf Expiration Date Model / Serial / Lot Medtronic Sofamor Danek [id number] Centerpiece 10mm Lateral Hole Open Door Color Coded Spine - [id number] Implanted:Qty: 3 on 04/11/2020 by Brandon Pryor MD at [facility] N/A: Spine Cervical Medtronic Inc [id number] / / Medtronic Sofamor Danek [id number] Centerpiece 2.6mm 7mm Self Tap Stab Grab Color Coded Spine Screw - [id number] Implanted:Qty: 6 on 04/11/2020 by Brandon Pryor MD at [facility] N/A: Spine Cervical Medtronic Inc [id number] / / Medtronic Sofamor Danek [id number] Centerpiece 2.6mm 5mm Self Tap Stab Grab Color Coded Spine Screw - [id number] Implanted:Qty: 6 on 04/11/2020 by Brandon Pryor MD at [facility] N/A: Spine Cervical Medtronic Inc [id number] / / Procedures Procedure Name Priority Date/Time Associated Diagnosis Comments PORTABLE/HOME SLEEP STUDY Routine 04/05/2025 8:48 AM CDT Obstructive sleep apnea CT LUNG CANCER SCREENING Schedule Routine, Read Routine (OP Routine) 12/27/2024 8:12 AM CDT Centrilobular emphysema (HCC) Lung nodules Personal history of tobacco use HEPATITIS PANEL, ACUTE Routine 01/09/2014 6:46 AM CDT SCREENING MAMMOGRAM 2D BILATERAL Routine 09/02/2012 7:42 AM FOAM RUBBER MOLDER from Last 3 Months or Most Recently Relevant to Health Maintenance Results * Portable/Home Sleep Study (04/05/2025 8:48 AM CDT) Evelyn Butler NP [facility] ORDERABLES Final Result Performing Organization Address City/State/[facility] Co de Phone Number [facility] [address] [place] [address] * CT Lung Cancer Screening (12/27/2024 8:12 [...] Sharda Parker D.O. PS T: Report ID: [id number] Reading Location: [place] [address] [employer] TE[employer]ER IMG CT PROCEDURES Final Res ult * [...] NONREACT NONREACTIVE 4 10:46 AM [facility] HISTORICAL RESULTS Comment: Siemens CentaurXP using LASHAE (chemiluminescent immunoassay) technology. NONREACTIVE: IgM antibodies to Hepatitis B Core antigen not detected. EQUIVOCAL: IgM antibodies to Hepatitis B Core antigen may or may not be present. Obtain a new specimen and retest. REACTIVE: IgM antibodies to Hepatitis B Core antigen detected. Hep A IgM NONREACT NONREACTIVE 01/09/2014 10:46 AM [facility] Comment: Siemens CentaurXP using LASHAE (chemiluminescent immunoassay) technology. NONREACTIVE: IgM antibodies to Hepatitis A not detected. This does not exclude possibility of exposure to Hepatitis A or early acute infection. EQUIVOCAL:IgM antibodies to Hepatitis A may or may not be present. Suggest recollection and retest. REACTIVE: Antibodies to Hepatitis A detected. Hep C Ab NONREACT NONREACTIVE 01/09/2014 10:46 AM CDT [facility] HISTORICAL RESULTS Comment: Siemens CentaurXP using LASHAE [...] MICROBIOLOGY - GENER AL ORDERABLES Final Result [facility] HISTORICAL RESULTS * Screening Mammogram 2D Bilateral (09/02/2012 7:42 AM FOAM RUBBER MOLDER) Anatomical Region Laterality Modality Breast Bilateral Mammography 09/02/2012 7:42 AM FOAM RUBBER MOLDER Impressions 09/02/2012 8:19 AM FOAM RUBBER MOLDER No mammographic evidence of malignancy. Recommend routine annual screening mammography. ASSESSMENT: BIRADS: 1 - Negative THIS IS AN ELECTRONICALLY VERIFIED REPORT 09/02/2012 8:16 AM: Bel eRbolledo M.D. Bel Rebolledo M.D. KL:tobin 08:16 AM 08:16 AM [EOD] Narrative 09/02/2012 8:19 AM FOAM RUBBER MOLDER EXAMINATION: Bilateral screening mammogram HISTORY: Routine screening [...] Recently Relevant to Health Maintenance Insurance MEDICARE IDPR [facility] MEDICARE IDPA Advance Directives For more information, please contact: [phone] * Full Code (Latest Code Status on File) Date Activated Date Inactivated Comments 04/11/2020 7:55 PM 04/13/2020 3:39 PM Care Teams Operational Risk Manager Relationship Specialty Start Date End Date Ernst Osorio MD [address] [place], [place] [id number] PCP - General Emergency Medicine 06/02/19
--- OUTSIDE RECORDS SUMMARY | 2025-04-26 11:45 | XMS_ITS | Encounter Summary ---
Author Organization [facility] Facility Care Team Providers Care Pathological Technician Name Role Phone Mary Pitts LPN Unavailable [phone] Ernst Osorio MD Primary Care Provide r Encounter Details Date Type Department Care Team (Latest Contact Info) Description 01/26/2016 Orders Only [facility] CLINCONV ProviderDeanne MD [address] [place] [id number] Social History Tobacco Use Types Packs/Day Years Used Date Smoking Tobacco: Never Assessed Comments Unknown Sex and Gender Information Value Date Recorded Sex Assigned at Not on file Legal Sex Female 7:58 AM COFOUNDER Gender Identity Not on file Sexual Orientation [...] on filedocumented in this encounter Care Teams Pathological Technician Relationship Specialty Start Date End Date Ernst Osorio MD [address] [place] [address] PCP - General Emergency Medicine 06/02/19 Mary Pitts, HALEY [address] [place] [address] Sales Rep 07/08/17 07/08/17 documented as of this encounter
[2025-04-26 11:54] LABS: Add Urine Microscopic? NO; Appearance Urine Clear (Clear); Glucose Urine UA Negative (Negative); Leukocyte Esterase Ur Negative LEU/UL (Negative); Nitrate Urine Negative (Negative); Specific Grav Ur 1.020 (1.001-1.035)
--- NOTE | 2025-04-26 12:04 | ED_ITS ---
HPI - Abdominal Pain General Chief Complaint: Abdominal Pain Stated Complaint: abd pain Time Seen by Provider: 04/26/25 10:29 Source: patient Mode of arrival: ambulatory Limitations: no limitations History of Present Illness HPI narrative: Patient is a 64-year-old female who presents the ED with report of abdominal pain. Patient reports having fairly significant pain diffusely throughout her abdomen since this morning. Reports constant pain with intermittent sharp cramping. States this feels similar to her previous bowel obstructions. Reports multiple previous bowel resections, abdominal surgeries, adhesion removal, bowel obstructions. Reports nausea with dry heaving today. Reports diarrhea over the past few days, but does note she routinely takes MiraLax to keep her stools loose. Denies fevers. Related Data Home Medications ?Medication ?Instructions ?Recorded ?Confirmed ?Last Taken ?Type albuterol sulfate 90 mcg/actuation 2 inhalation inhala tion Q4H PRN 09/21/19 02/25/25 08/13/22 09:00 History aerosol inhaler (ProAir HFA) Shortness Of Breath Or Wh eezing fluticasone fur. 100 mcg-umeclid 1 inh inhalation Q24H 01/26/25 02/25/25 Unknown History 62.5 mcg-vilant 25 mcg inhalat.powder (Trelegy Ellipta) fluticasone propionate 50 2 spray intranasal DAILY PRN 01/26/25 02/25/25 Unknown History mcg/actuation nasal allergy symptoms spray,suspension ropinirole 1 mg tablet 1 mg PO HS 01/26/25 02/25/25 Unknown History Allergies Allergy/AdvReac Type Severity Reaction Status Date / Time famotidine Allergy Intermediate Itching Verified 04/26/25 10:48 latex Allergy Unknown unknown Verified 04/26/25 10:48 Penicillins Allergy Unknown unknown Verified 04/26/25 10:48 Review of Systems 2 Review of Systems: All systems reviewed & are unremarkable except as noted in HPI. All systems reviewed & are unremarkable except as noted in HPI and below PMFSH Past Medical History Medical History Partial small bowel obstruction (~02/12/20) Partial small bowel obstruction Vaginal itching Small bowel obstruction Diarrhea SBO (small bowel obstruction) URI with cough and congestion Partial small bowel obstruction Small bowel obstruction Small bowel obstruction Postoperative ileus Pneumothorax Upper respiratory tract infection Encounter for surgical aftercare following surgery on the digestive system Mixed hyperlipidemia GERD without esophagitis Chronic constipation TIA (transient ischemic attack) (~2000) History of vaginal delivery B12 deficiency Iron deficiency anemia Restless leg syndrome, controlled Small bowel obstruction due to adhesions Previous, multiple admissions for such. Scoliosis Chronic back pain Vitamin D deficiency Migraine headache Depression with anxiety Peripheral neuropathy Hypothyroidism Dyslipidemia Obstructive sleep apnea Chronic respiratory failure with hypoxia On 2 liters nasal cannula p.r.n. Chronic obstructive pulmonary disease Surgical History Surgical History H/O exploratory laparotomy History of colostomy reversal History of colostomy History of neck surgery History of hysterectomy [place] teeth removed History of bowel resection 2010 low anterior resection Status post small bowel resection (~01/2019) Exploratory laparotomy with resection of 36 centimeters of the small bowel with extensive adhesiolysis and ileal-ileal anastomosis. Bladder prolapse Repair of bladder prolapse. Rectal prolapse Rectal prolapse repair. History of cholecystectomy Open cholecystectomy History of tonsillectomy and adenoidectomy History of eye surgery Treatment of amblyopia. History of bilateral cataract extraction Family History Family History Father Cirrhosis Alcoholism Mother Emphysema of lung Alcoholism Sibling No problems noted. Social History Social History Social History: The patient lives in [place] with her significant other, Luis Fernando. They have been together since 1997. 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 She smoked about a pack of cigarettes per day since she was in her 20s. She denies alcohol and illicit substance abuse. She designates her son, Rohit, as her surrogate decision maker and she wishes to be a full code. Smoking packs per day: 1 Smoking cigarettes per day: 20.0 Years smoked: 40 Smoking pack-years: 40.00 Smoking status: Current every day smoker Second hand tobacco smoke exposure: Yes Alcohol intake: current Substance use: current Substance use type: marijuana Other substance usage details: gummies Do You Feel Safe in your Home?: Yes Lack of Transportation: No Lack of Food: Never True Current Housing: Decline to Answer Concerned About Future Housing: Decline to Answer Difficulty Paying Gas/Electric Bills: Decline to Answer Difficulty Paying for Meds: Decline to Answer Currently Unemployed: Decline to Answer Education: Decline to Answer Difficulty w/ Childcare or Family Care: Decline to Answer Living arrangements: with family Occupation/Education: retired Gender identity (if verbalized by the patient): Female Sexual Orientation (if Verbalized by the Patient): Straight or Heterosexual Spiritual care concerns: No Agree to blood products: Yes Exam 2 Narrative: GENERAL: Mildly uncomfortable appearing, well-nourished, non-toxic, in no acute distress. HEAD: Normocephalic, atraumatic. RESPIRATORY: Airway patent, respirations nonlabored. Clear to auscultation bilaterally, no rales, rhonchi, wheezing. CARDIOVASCULAR: Regular rate and rhythm without murmurs, rubs, or gallops. ABDOMINAL: Diffuse lower abdominal tenderness, mildly distended but still soft. Normoactive BS. MUSCULOSKELETAL: Moves all extremities. No gross deformities. SKIN: Warm, dry, normal color. NEURO: A&O X3. Speech clear. Cranial nerves II-XII grossly intact. Steady gait. No ataxic movements. PSYCHIATRIC: Appropriate mood and affect. Normal interaction. Course Vital Signs Vital signs: Vital Signs Temperature 97.1 F L 04/26/25 10:21 Pulse Rate 86 04/26/25 10:21 Respiratory Rate 20 04/26/25 10:21 Blood Pressure 135/91 H 04/26/25 10:21 Pulse Oximetry 97 04/26/25 10:21 Oxygen Delivery Room Air 04/26/25 10:21 Temperature 97.7 F 04/26/25 14:30 Pulse Rate 74 04/26/25 14:30 Respiratory Rate 20 04/26/25 14:30 Blood Pressure 136/80 04/26/25 14:30 Pulse Oximetry 94 04/26/25 14:30 Oxygen Delivery Room Air 04/26/25 10:21 MDM - Abdominal Pain MDM Narrative Medical decision making narrative: Patient presented to ED with abdominal pain, diarrhea, nausea with dry heaving. History of previous bowel resections and bowel obstructions. Vital signs are stable upon arrival. Patient mildly uncomfortable appearing, but not in acute distress. Cbc with white blood cell count of 12.8. Neutrophil predominance. No bandemia. CMP unremarkable. No concerning findings. Lactic acid within normal range at 1.7. UA is clear. CT scan of abdomen/pelvis was obtained: Showing multiple findings regarding bowels.. gastritis, enteritis, ileus, possible developing bowel obstruction. IMPRESSION: 1. Thickening of the malik of the body of the stomach. Differential includes incomplete stomach wall distention, gastritis or mass. 2. Short segment focal thickening of the malik of a bowel loop about the anastomotic suture line in bowel in the upper pelvis. Differential includes incomplete bowel wall distention or an inflammatory/infectious process. 3. There are a few small bowel loops with thickened malik possibly secondary to enteritis. 4. Small amount of nonspecific fluid in the pelvis 5. There are a few distended loops of bowel in the pelvis. Differential includes ileus or developing bowel obstruction. Patient is feeling slightly improved with supportive therapy. Pain is down from a 9 to a 5. Nausea is improved at this time. Will discuss with General surgery. Discussed case with Dr. Madsen, gen surgery, advised could be more gastroenteritis picture. Recommended admission to hospitalist, obs, bowel rest, ok to hold on NG tube for now. Meryl MURRY general surgery in the ED to see patient. Also recommended protonix, will possibly consult GI. Discussed case with Cora Martin NP hospitalist accepted patient for admission. Patient in agreement with plan and need for admission. Medical Records Attestation: I reviewed the patient's medical records. Lab Data Attestation: I reviewed the patient's lab results. 04/26/25 11:37 04/26/25 11:59 Labs: Lab Results 04/26/25 04/26/25 04/26/25 Range/Units 11:37 11:44 11:59 WBC 12.8 H (4.5-10.0) K/mm3 RBC 4.67 (4.2-5.4) M/mm3 Hgb 14.7 (12.0-15.0) g/dL Hct 44.7 (37.0-47.0) % MCV 95.7 (80-100) fl MCH 31.5 (26-34) pg MCHC 32.9 (32-36) g/dl RDW 13.9 (11.5-14.5) % Plt Count 363 (150-375) k/mm3 MPV 9.8 (7.4-10.4) fl Immature Gran % (Auto) 0.6 H (0-0.5) % Neut % (Auto) 74.9 H (45.5-73.1) % Lymph % (Auto) 17.7 L (18.3-44.2) % [place] % (Auto) 5.6 (2.6-8.5) % Eos % (Auto) 0.8 (0-4.4) % Baso % (Auto) 0.4 (0.2-1.2) % Lymph # (Auto) 2.27 (0.9-3.2) K/mm3 [place] # (Auto) 0.7 H (0.1-0.6) K/mm3 Eos # (Auto) 0.1 (0-0.3) K/mm3 Baso # (Auto) 0.1 (0.0-0.1) K/mm3 Abs Immat Gran (auto) 0.08 H (0.00-0.031) K/mm3 Absolute Neuts (auto) 9.6 H (1.3-6.7) K/mm3 Absolute Nucleated RBC 0.000 (0.0-0.012) K/mm3 Nucleated RBC % 0.0 (0.0-0.2) % Sodium 139 (137-145) mmol/L Potassium 4.3 (3.4-5.0) mmol/L Chloride 101 (98-107) mmol/L Carbon Dioxide 30 (22-30) mmol/L Anion Gap 8 (4-12) mmol/L BUN 16 (7-17) mg/dL Creatinine 0.58 L 0.70 (0.7-1.0) mg/dL Estim Creat Clear Calc 72 60 ml/min Estimated GFR > 60 > 60 (59 - ) Glucose 105 (65-110) mg/dL Lactic Acid 1.7 (0.7-2.0) mmol/L Calcium 9.5 (8.4-10.2) mg/dL Total Bilirubin 0.3 (0.2-1.3) mg/dL AST 29 (14-36) U/L ALT 17 (6-35) U/L Alkaline Phosphatase 87 (38-126) U/L Total Protein 7.8 (6.3-8.2) g/dL Albumin 4.5 (3.5-5.1) g/dL Lipase 37 (23-300) U/L Urine Color Yellow (Yellow) Urine Appearance Clear (Clear) Urine pH 8.0 (5.0-9.0) Ur Specific Reserve 1.020 (1.001-1.035) Urine Protein Negative (Negative) mg/dL Urine Glucose (UA) Negative (Negative) mg/dL Urine Ketones Negative (Negative) mg/dL Ur Blood (Man) Negative (Negative) Urine Nitrate Negative (Negative) Urine Bilirubin Negative (Negative) Urine Urobilinogen 1.0 (<2.0) mg/dL Leukocyte Esterase Rfl Negative (Negative) ALISSON/UL Imaging Data Attestation: I personally reviewed and interpreted this imaging study as follows: Radiologist's impression: ITS Impressions Abdomen/Pelvis CT 04/26/25 12:19 IMPRESSION: 1. Thickening of the malik of the body of the stomach. Differential includes incomplete stomach wall distention, gastritis or mass. 2. Short segment focal thickening of the malik of a bowel loop about the anastomotic suture line in bowel in the upper pelvis. Differential includes incomplete bowel wall distention or an inflammatory/infectious process. 3. There are a few small bowel loops with thickened malik possibly secondary to enteritis. 4. Small amount of nonspecific fluid in the pelvis 5. There are a few distended loops of bowel in the pelvis. Differential includes ileus or developing bowel obstruction. Discharge Plan Discharge Clinical Impression: Gastroenteritis, Ileus, History of intestinal obstruction Patient Disposition: Still a Patient Condition: Stable Patient Language: Filipino Prescriptions: No Action Trelegy Ellipta 100-62.5-25 mcg blister with device 1 inh INHALATION Q24H fluticasone propionate 50 mcg/actuation spray,suspension 2 spray INTRANASAL DAILY PRN (Reason: allergy symptoms) ropinirole 1 mg tablet 1 mg PO HS azithromycin [Zithromax Z-Qasim] 250 mg tablet See Rx Instructions PO .COMPLEX Qty: 6 0RF Patient Comments: . Rx Instructions: For 250 mg dose pack: take 500 mg today (day 1), then 250 mg for 4 days (days 2-5) PO albuterol sulfate [ProAir HFA] 90 mcg/actuation HFA aerosol inhaler 2 inhalation INHALATION Q4H PRN (Reason: Shortness Of Breath Or Wheezing) Patient Comments: .. pantoprazole 20 mg tablet,delayed release (DR/EC) See Rx Instructions .ROUTE .COMPLEX Qty: 90 2RF Dose Instruction: TAKE 1 TABLET BY MOUTH EVERY MORNING Rx Instructions: TAKE 1 TABLET BY MOUTH EVERY MORNING amlodipine 5 mg tablet See Rx Instructions .ROUTE .COMPLEX Qty: 90 2RF Dose Instruction: TAKE 1 TABLET BY MOUTH EVERY MORNING Patient Comments: . Rx Instructions: TAKE 1 TABLET BY MOUTH EVERY MORNING cyclobenzaprine 5 mg tablet 5 mg PO TID PRN (Reason: Pain (Scale Score 4-6)) Qty: 30 0RF Patient Comments: . tramadol 50 mg tablet 50 mg PO Q6H PRN (Reason: pain) Qty: 60 0RF Patient Comments: . Follow-up/Referrals: Ernst Osorio MD [Primary Care Provider, Internal Medicine]
[2025-04-26 12:05] LABS: Alanine Aminotransferase 17 U/L (6-35); Albumin Level 4.5 g/dL (3.5-5.1); Alkaline Phosphatase 87 U/L (38-126); Anion Gap 8 mmol/L (4-12); Aspartate Amino Transferase 29 U/L (14-36); Bilirubin,Total 0.3 mg/dL (0.2-1.3); Blood Urea Nitrogen 16 mg/dL (7-17); Calcium 9.5 mg/dL (8.4-10.2); Carbon Dioxide 30 mmol/L (22-30); Chloride 101 mmol/L (98-107); Estimated CRCL calculation 72 ml/min; Estimated Glomerular Filt Rate > 60; Glucose 105 mg/dL (65-110); Lipase 37 U/L (23-300); Potassium 4.3 mmol/L (3.4-5.0); Sodium 139 mmol/L (137-145); Total Protein 7.8 g/dL (6.3-8.2)
[2025-04-26 12:17] LABS: Estimated CRCL calculation 60 ml/min; Estimated Glomerular Filt Rate > 60
--- NOTE | 2025-04-26 14:20 | PM.CNGS ---
Assessment and Plan Assessment and plan (1) Gastroenteritis: Code(s): K52.9 - Noninfective gastroenteritis and colitis, unspecified Status: Acute Assessment and Plan: CT scan shows a few slightly dilated loops of small bowel and findings suggestive of gastroenteritis. CT suggests possible ileus versus small-bowel obstruction, but she is still having bowel function and has not had any vomiting. No peritoneal signs on exam. Will defer NG tube at this time. This seems more consistent with gastroenteritis. Continue with conservative management, including bowel rest, IV fluids, and medical management for now. (2) Epigastric pain: Code(s): R10.13 - Epigastric pain Status: Acute Assessment and Plan: Patient complains of consistent epigastric abdominal pain following meals over the past 4-[address] scan showed a distended stomach with gastric wall thickening in the body of the stomach. Will consult GI for evaluation. (3) H/O major abdominal surgery: Code(s): Z98.890 - Other specified postprocedural states Status: Chronic Assessment and Plan: Multiple previous abdominal surgeries for small-bowel obstructions. See HPI for details. (4) MARÍA (iron deficiency anemia): Code(s): D50.9 - Iron deficiency anemia, unspecified Status: Chronic (5) Chronic respiratory failure with hypoxia: Code(s): J96.11 - Chronic respiratory failure with hypoxia Status: Chronic Assessment and Plan: Patient wears 2 L of oxygen at night. (6) COPD (chronic obstructive pulmonary disease): Code(s): J44.9 - Chronic obstructive pulmonary disease, unspecified Status: Chronic (7) Obstructive sleep apnea: Code(s): G47.33 - Obstructive sleep apnea (adult) (pediatric) Status: Chronic (8) Tobacco dependence: Code(s): F17.200 - Nicotine dependence, unspecified, uncomplicated Status: Acute Plan I have discussed the patient's case and plan of care with Dr. Madsen. Thank you for allowing us to see the patient in consultation and we will continue to follow along with you. History of Present Illness Consult details Consult date: 04/26/25 Reason for consult: other (Possible small bowel obstruction) Requesting physician: Digna Small PA-C Narrative: This is a 64-year-old woman who we have been asked to see in surgical consultation for possible small bowel obstruction. She is well-known to the service with multiple prior bowel obstructions. She reports having diarrhea and postprandial epigastric abdominal pain for the past 4-5 weeks. Her epigastric pain was significant enough that she stops eating solid foods. She reports eating some solids at times, but not much. She has mostly followed essentially a full liquid diet. She tried calling GI and her primary care provider to be seen as an outpatient, but they recommended she be seen in the ED. 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 Throughout the past few weeks, she reports a couple liquid bowel movements daily, never exceeding 5 per day. No blood noted in her stool. No nausea or vomiting. Last night, her pain became more severe and she developed nausea with dry heaving. Therefore, she came into the ED for evaluation. Labs showed a white blood cell count [id number]. Lactic acid normal. CT scan of the abdomen and pelvis showed areas of wall thickening in the body of the stomach, some small bowel loops, and a bowel loop about the anastomotic suture line, suggestive of gastritis/enteritis or possible mass. There was also a few distended loops of bowel in the pelvis with the differential including ileus versus developing bowel obstruction. Our service was then consulted and she is now seen in the ED. She has been placing flatus today and had a small liquid bowel movement this morning. Her main complaint is her epigastric abdominal pain. She has a history of open cholecystectomy and multiple surgeries following a hysterectomy for rectovaginal fistula. She had a diverting colostomy that then was taken down. She had a laparotomy in 2018 with small-bowel resection for a small-bowel obstruction and again in 2022 with small bowel resection for small bowel obstruction. Since 2022, she denies any recurrent bowel obstructions or additional abdominal surgery. Review of Systems Review of Systems: All systems reviewed & are unremarkable except as noted in HPI and below [facility] Past Medical History Medical History Partial small bowel obstruction (~02/12/20) Partial small bowel obstruction Vaginal itching Small bowel obstruction Diarrhea SBO (small bowel obstruction) URI with cough and congestion Partial small bowel obstruction Small bowel obstruction Small bowel obstruction Postoperative ileus Pneumothorax Upper respiratory tract infection Encounter for surgical aftercare following surgery on the digestive system Mixed hyperlipidemia GERD without esophagitis Chronic constipation TIA (transient ischemic attack) (~2000) History of vaginal delivery B12 deficiency Iron deficiency anemia Restless leg syndrome, controlled Small bowel obstruction due to adhesions Previous, multiple admissions for such. Scoliosis Chronic back pain Vitamin D deficiency Migraine headache Depression with anxiety Peripheral neuropathy Hypothyroidism Dyslipidemia Obstructive sleep apnea Chronic respiratory failure with hypoxia On 2 liters nasal cannula p.r.n. Chronic obstructive pulmonary disease Surgical History Surgical History H/O exploratory laparotomy History of colostomy reversal History of colostomy History of neck surgery History of hysterectomy [place] teeth removed History of bowel resection 2010 low anterior resection Status post small bowel resection (~01/2019) Exploratory laparotomy with resection of 36 centimeters of the small bowel with extensive adhesiolysis and ileal-ileal anastomosis. Bladder prolapse Repair of bladder prolapse. Rectal prolapse Rectal prolapse repair. History of cholecystectomy Open cholecystectomy History of tonsillectomy and adenoidectomy History of eye surgery Treatment of amblyopia. History of bilateral cataract extraction Family History Family History Father Cirrhosis Alcoholism Mother Emphysema of lung Alcoholism Sibling No problems noted. Social History Social History Social History: The patient lives in [place] with her significant other, Luis Fernando. They have been together since 1997. 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 She smoked about a pack of cigarettes per day since she was in her 20s. She denies alcohol and illicit substance abuse. She designates her son, Rohit, as her surrogate decision maker and she wishes to be a full code. Smoking packs per day: 1 Smoking cigarettes per day: 20.0 Years smoked: 40 Smoking pack-years: 40.00 Smoking status: Current every day smoker Second hand tobacco smoke exposure: Yes Alcohol intake: current Substance use: current Substance use type: marijuana Other substance usage details: gummies Do You Feel Safe in your Home?: Yes Lack of Transportation: No Lack of Food: Never True Current Housing: Decline to Answer Concerned About Future Housing: Decline to Answer Difficulty Paying Gas/Electric Bills: Decline to Answer Difficulty Paying for Meds: Decline to Answer Currently Unemployed: Decline to Answer Education: Decline to Answer Difficulty w/ Childcare or Family Care: Decline to Answer Living arrangements: with family Occupation/Education: retired Gender identity (if verbalized by the patient): Female Sexual Orientation (if Verbalized by the Patient): Straight or Heterosexual Spiritual care concerns: No Agree to blood products: Yes Meds Home Medications and Allergies Home Medications ?Medication ?Instructions ?Recorded ?Confirmed ?Type albuterol sulfate 90 mcg/actuation 2 inhalation inhalation Q4H PRN 09/21/19 02/25/25 History aerosol inhaler (ProAir HFA) Shortness Of Breath Or Wheezing amlodipine 5 mg tablet See Rx Instructions .Route 01/17/25 02/25/25 Rx .COMPLEX #90 tabs cyclobenzaprine 5 mg tablet 5 mg PO TID PRN Pain (Scale Score 01/17/25 02/25/25 Rx 4-6) #30 tabs pantoprazole 20 mg tablet,delayed See Rx Instructions .Route 01/17/25 02/25/25 Rx release .COMPLEX #90 tabs fluticasone fur. 100 mcg-umeclid 1 inh inhalation Q24H 01/26/25 02/25/25 History 62.5 mcg-vilant 25 mcg inhalat.powder (Trelegy Ellipta) fluticasone propionate 50 2 spray intranasal DAILY PRN 01/26/25 02/25/25 History mcg/actuation nasal allergy symptoms spray,suspension ropinirole 1 mg tablet 1 mg PO HS 01/26/25 02/25/25 History azithromycin 250 mg tablet See Rx Instructions PO .COMPLEX #6 02/25/25 03/23/25 Rx (Zithromax Z-Qasim) tabs tramadol 50 mg tablet 50 mg PO Q6H PRN pain #60 tabs 03/29/25 04/20/25 Rx Allergies Allergy/AdvReac Type Severity Reaction Status Date / Time famotidine Allergy Intermediate Itching Verified 04/26/25 10:48 latex Allergy Unknown unknown Verified 04/26/25 10:48 Penicillins Allergy Unknown unknown Verified 04/26/25 10:48 Vital Signs Vital Signs - 24 hr 04/26/25 10:21 Temperature 97.1 F L Pulse Rate 86 Respiratory Rate 20 Blood Pressure 135/91 H Pulse Oximetry 97 Oxygen Delivery Room Air Exam Const: General: no acute distress and uncomfortable (Due to abdominal pain) Nutritional Appearance: average body habitus Orientation/consciousness: patient oriented x3 HENMT: Head: normocephalic and atraumatic Ears: hearing grossly normal bilaterally Mouth: Yes moist mucous membranes Eyes: General: appearance normal, both eyes and all related structures Pupils: Equal, round and reactive pupils present Neck: Neck: normal visual inspection and full ROM Resp: Effort & Inspection: no respiratory distress Auscultation: clear to auscultation bilaterally Cardio: Rate: regular rate Rhythm: regular rhythm Peripheral pulses: Peripheral pulses 2+ throughout GI: Inspection: scar (Large midline scar, LLQ scar, RUQ transverse scar), no visible herniation and other (Moderately distended) GI Palp: Yes Soft to palpation, Yes Tenderness to palpation present (GI) (Diffuse), No Guarding due to palpation present (GI), No Hernia present (No obvious palpable incisional hernia) and No Rebound tenderness present Auscultation: Hypoactive bowel sounds present Rectal Exam: deferred Skin: General skin exam: normal color Neuro: General: moves all extremities and no focal motor deficits Speech: normal speech Motor exam (neuro): 5/5 motor strength present throughout Extrem: General: normal to inspection and no edema Psych: Mental Status: mental status grossly normal Attitude: cooperative Insight: Good insight present (Psych) Judgement: Good judgement present (Psych) Results Labs 04/26/25 11:37 04/26/25 11:59 Labs: Abnormal lab results 04/26/25 Range/Units 11:37 WBC 12.8 H (4.5-10.0) K/mm3 Immature Gran % (Auto) 0.6 H (0-0.5) % Neut % (Auto) 74.9 H (45.5-73.1) % Lymph % (Auto) 17.7 L (18.3-44.2) % [place] # (Auto) 0.7 H (0.1-0.6) K/mm3 Abs Immat Gran (auto) 0.08 H (0.00-0.031) K/mm3 Absolute Neuts (auto) 9.6 H (1.3-6.7) K/mm3 Creatinine 0.58 L (0.7-1.0) mg/dL Diabetes panel 04/26/25 04/26/25 Range/Units 11:37 11:59 Sodium 139 (137-145) mmol/L Potassium 4.3 (3.4-5.0) mmol/L Chloride 101 (98-107) mmol/L Carbon Dioxide 30 (22-30) mmol/L BUN 16 (7-17) mg/dL Creatinine 0.58 L 0.70 (0.7-1.0) mg/dL Glucose 105 (65-110) mg/dL Calcium 9.5 (8.4-10.2) mg/dL AST 29 (14-36) U/L ALT 17 (6-35) U/L Alkaline Phosphatase 87 (38-126) U/L Total Protein 7.8 (6.3-8.2) g/dL Albumin 4.5 (3.5-5.1) g/dL Calcium panel 04/26/25 Range/Units 11:37 Calcium 9.5 (8.4-10.2) mg/dL Albumin 4.5 (3.5-5.1) g/dL Pituitary panel 04/26/25 04/26/25 Range/Units 11:37 11:59 Sodium 139 (137-145) mmol/L Potassium 4.3 (3.4-5.0) mmol/L Chloride 101 (98-107) mmol/L Carbon Dioxide 30 (22-30) mmol/L BUN 16 (7-17) mg/dL Creatinine 0.58 L 0.70 (0.7-1.0) mg/dL Glucose 105 (65-110) mg/dL Calcium 9.5 (8.4-10.2) mg/dL Adrenal panel 04/26/25 04/26/25 Range/Units 11:37 11:59 Sodium 139 (137-145) mmol/L Potassium 4.3 (3.4-5.0) mmol/L Chloride 101 (98-107) mmol/L Carbon Dioxide 30 (22-30) mmol/L BUN 16 (7-17) mg/dL Creatinine 0.58 L 0.70 (0.7-1.0) mg/dL Glucose 105 (65-110) mg/dL Calcium 9.5 (8.4-10.2) mg/dL Total Bilirubin 0.3 (0.2-1.3) mg/dL AST 29 (14-36) U/L ALT 17 (6-35) U/L Alkaline Phosphatase 87 (38-126) U/L Total Protein 7.8 (6.3-8.2) g/dL Albumin 4.5 (3.5-5.1) g/dL All other labs normal. Imaging Additional studies: ITS Impressions Abdomen/Pelvis CT 04/26/25 12:19 IMPRESSION: 1. Thickening of the malik of the body of the stomach. Differential includes incomplete stomach wall distention, gastritis or mass. 2. Short segment focal thickening of the malik of a bowel loop about the anastomotic suture line in bowel in the upper pelvis. Differential includes incomplete bowel wall distention or an inflammatory/infectious process. 3. There are a few small bowel loops with thickened malik possibly secondary to enteritis. 4. Small amount of nonspecific fluid in the pelvis 5. There are a few distended loops of bowel in the pelvis. Differential includes ileus or developing bowel obstruction.
[2025-04-26 14:30] VITALS: BP 136/80; PULSE 74; RESP 20; TEMP 36.5; O2SAT 94
[2025-04-26] MEDS: PANTOPRAZOLE SODIUM IV 40 MG VIAL IV PUSH (14:33)
--- NOTE | 2025-04-26 15:45 | PM.IMHP ---
H&P: HPI History of Present Illness Date/Time: 04/26/25 15:45 Chief Complaint: Abdominal Pain Narrative: 64 y/o F with PMH of multiple prior bowel obstructions, MARÍA, scoliosis, depression, anxiety, hypothyroidism, LEVY, COPD, and chronic respiratory failure on home O2 presents here with abdominal pain. The patient presents from home on 04/26 for further evaluation of abdominal pain and nausea. She reports she has been experiencing at postprandial epigastric pain and diarrhea for the past 4 weeks. Epigastric pain resolved for a week and returned, the diarrhea has been persistent. She states she has been largely unable to eat solid foods due to the severity of the pain. She has been attempting to manage her pain via a full liquid diet and some solid food. She did not have this addressed sooner as she is the primary caregiver for her and she attempted to be seen outpatient by her GI and PCP who recommended she seek evaluation in the emergency department. She describes her stool as yellowish-brown, liquid, and on average 2 times per day (some days can be more than 5). No associated melena. Does have intermittent BRB per rectum, typically precipitated by constipation, occurs around once per month, and resolves after 1-2 BMs. She is seeking care today as her pain significantly worsened last night and she developed nausea with dry heaving. She describes the epigastric pain as labor pains, radiating to her upper abdomen and mid back, intermittent, aggravated by eating, and alleviated by passing gas or going to the bathroom. She has an extensive abdominal history including an open cholecystectomy, multiple surgeries following a hysterectomy for rectovaginal fistula, diverting colostomy that has since been taken down, laparotomy with small-bowel resection for small-bowel obstruction (2018, 2022). Last abdominal surgery in 2022, since this last surgery she has had no recurrent bowel obstructions or additional abdominal surgeries. Initial VS at presentation: 97.1? F, HR 86, R 20, 135/91, and 97% on RA. ED workup showed: WBC 12.8, no anemia, no significant electrolyte derangements, creatinine 0.70 and GFR >60, glucose 105, lactic 1.7, and UA unremarkable. CT of the abdomen/pelvis had multiple findings, see below in plan. Review of Systems Review of Systems: All systems reviewed & are unremarkable except as noted in HPI and below PMFSH Past Medical History Medical History Partial small bowel obstruction (~02/12/20) Partial small bowel obstruction Vaginal itching Small bowel obstruction Diarrhea SBO (small bowel obstruction) Partial small bowel obstruction Small bowel obstruction Small bowel obstruction Postoperative ileus Pneumothorax Encounter for surgical aftercare following surgery on the digestive system GERD without esophagitis Chronic constipation TIA (transient ischemic attack) (~2000) History of vaginal delivery B12 deficiency Iron deficiency anemia Restless leg syndrome, controlled Small bowel obstruction due to adhesions Previous, multiple admissions for such. Scoliosis Chronic back pain Vitamin D deficiency Migraine headache Depression with anxiety Peripheral neuropathy Hypothyroidism Dyslipidemia Obstructive sleep apnea Chronic respiratory failure with hypoxia On 2 liters nasal cannula p.r.n. Chronic obstructive pulmonary disease Surgical History Surgical History H/O exploratory laparotomy History of colostomy reversal History of colostomy History of neck surgery History of hysterectomy [place] teeth removed History of bowel resection 2009 low anterior resection Status post small bowel resection (~01/2019) Exploratory laparotomy with resection of 36 centimeters of the small bowel with extensive adhesiolysis and ileal-ileal anastomosis. Bladder prolapse Repair of bladder prolapse. Rectal prolapse Rectal prolapse repair. History of cholecystectomy Open cholecystectomy History of tonsillectomy and adenoidectomy History of eye surgery Treatment of amblyopia. History of bilateral cataract extraction Family History Family History Father Cirrhosis Alcoholism Mother Emphysema of lung Alcoholism Sibling No problems noted. Social History Social History Social History: The patient lives in [place] with her significant other, Luis Fernando. They have been together since 1997. 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 She smoked about a pack of cigarettes per day since she was in her 20s. She denies alcohol and illicit substance abuse. She designates her son, Rohit, as her surrogate decision maker and she wishes to be a full code. Smoking packs per day: 1 Smoking cigarettes per day: 20.0 Years smoked: 40 Smoking pack-years: 40.00 Smoking status: Current every day smoker Tobacco type: cigarettes Second hand tobacco smoke exposure: Yes Alcohol intake: never Substance use: never Substance use type: marijuana Other substance usage details: gummies Do You Feel Safe in your Home?: Yes Lack of Transportation: No Lack of Food: Never True Current Housing: I Have Housing Concerned About Future Housing: No Difficulty Paying Gas/Electric Bills: No Difficulty Paying for Meds: No Currently Unemployed: No Education: High School Diploma/GED Difficulty w/ Childcare or Family Care: No Living arrangements: with family Occupation/Education: retired Gender identity (if verbalized by the patient): Female Sexual Orientation (if Verbalized by the Patient): Straight or Heterosexual Spiritual care concerns: Yes Agree to blood products: Yes Meds Home Medications and Allergies Home Medications ?Medication ?Instructions ?Recorded ?Confirmed ?Type albuterol sulfate 90 mcg/actuation 2 inhalation inhalation Q4H PRN 09/21/19 04/26/25 History aerosol inhaler (ProAir HFA) Shortness Of Breath Or Wheezing amlodipine 5 mg tablet See Rx Instructions .Route 01/17/25 04/26/25 Rx .COMPLEX #90 tabs cyclobenzaprine 5 mg tablet 5 mg PO TID PRN Pain (Scale Score 01/17/25 04/26/25 Rx 4-6) #30 tabs pantoprazole 20 mg tablet,delayed See Rx Instructions .Route 01/17/25 04/26/25 Rx release .COMPLEX #90 tabs fluticasone fur. 100 mcg-umeclid 1 inh inhalation Q24H 01/26/25 04/26/25 History 62.5 mcg-vilant 25 mcg inhalat.powder (Trelegy Ellipta) fluticasone propionate 50 2 spray intranasal DAILY PRN 01/26/25 04/26/25 History mcg/actuation nasal allergy symptoms spray,suspension ropinirole 1 mg tablet 1 mg PO HS 01/26/25 04/26/25 History tramadol 50 mg tablet 50 mg PO Q6H PRN pain #60 tabs 03/29/25 04/26/25 Rx Allergies Allergy/AdvReac Type Severity Reaction Status Date / Time famotidine Allergy Intermediate Itching Verified 04/26/25 19:44 latex Allergy Unknown unknown Verified 04/26/25 19:44 Penicillins Allergy Unknown unknown Verified 04/26/25 19:44 Vital Signs Vital Signs - 24 hr 04/26/25 10:21 04/26/25 14:30 Temperature 97.1 F L 97.7 F Pulse Rate 86 74 Respiratory Rate 20 20 Blood Pressure 135/91 H 136/80 Pulse Oximetry 97 94 Oxygen Delivery Room Air Exam Const: General: comfortable and no acute distress Other: , female, nontoxic appearance HENMT: Face/Nose/Sinus: Normal nares present Mouth: Yes moist mucous membranes Eyes: General: appearance normal, both eyes and all related structures Sclera: sclerae normal Pupils: Equal, round and reactive pupils present EOM: EOMs intact bilaterally Resp: Effort & Inspection: normal respiratory effort Auscultation: clear to auscultation bilaterally Cardio: Rate: regular rate Rhythm: regular rhythm Other: S1-S2 present without murmur, rub, ectopy GI: Other: Abdomen soft, nondistended. Diffuse tenderness, more prominent in the epigastric region. Normoactive to hyperactive bowel sounds in all quadrants. Skin: General skin exam: normal color and no rashes or lesions noted Wounds: no wounds Neuro: Speech: normal speech Motor exam (neuro): 5/5 motor strength present throughout Sensory Exam: normal sensation Other: A&O x4 Extrem: General: normal to inspection Psych: Mental Status: mental status grossly normal Affect: normal affect Other: Good insight and judgment, pleasant H&P: Results Labs Labs: Short CBC 04/26/25 Range/Units 11:37 WBC 12.8 H (4.5-10.0) K/mm3 Hgb 14.7 (12.0-15.0) g/dL Hct 44.7 (37.0-47.0) % Plt Count 363 (150-375) k/mm3 [facility] 04/26/25 04/26/25 11:37 11:59 Sodium 139 Potassium 4.3 Chloride 101 Carbon Dioxide 30 BUN 16 Creatinine 0.58 L 0.70 Glucose 105 Calcium 9.5 Liver Function 04/26/25 Range/Units 11:37 Total Bilirubin 0.3 (0.2-1.3) mg/dL AST 29 (14-36) U/L ALT 17 (6-35) U/L Alkaline Phosphatase 87 (38-126) U/L Albumin 4.5 (3.5-5.1) g/dL Urine 04/26/25 Range/Units 11:44 Urine Color Yellow (Yellow) Urine Appearance Clear (Clear) Urine pH 8.0 (5.0-9.0) Ur Specific [place] 1.020 (1.001-1.035) Urine Protein Negative (Negative) mg/dL Urine Glucose (UA) Negative (Negative) mg/dL Assessment and Plan Assessment and plan (1) Gastroenteritis: Code(s): K52.9 - Noninfective gastroenteritis and colitis, unspecified Status: Acute Assessment and Plan: - CT abd/pelvis, 04/26: 1. Thickening of the malik of the body of the stomach. Differential includes incomplete stomach wall distention, gastritis or mass. 2. Short segment focal thickening of the malik of a bowel loop about the anastomotic suture line in bowel in the upper pelvis. Differential includes incomplete bowel wall distention or an inflammatory/infectious process. 3. There are a few small bowel loops with thickened malik possibly secondary to enteritis. 4. Small amount of nonspecific fluid in the pelvis 5. There are a few distended loops of bowel in the pelvis. Differential includes ileus or developing bowel obstruction. - General Surgery consulted -> CT findings suggestive of gastroenteritis and ileus v SBO. No vomiting and bowel function preserved, hold off on NG. Conservative measures: bowel rest, IVF and medical management - monitor WBC and clinical exam for improvement (2) Epigastric pain: Code(s): R10.13 - Epigastric pain Status: Acute Assessment and Plan: - general surgery recommended GI consultation as the patient has had consistent epigastric postprandial of for the past 4-[address] also showing a distended stomach with gastric wall thickening in the body of the stomach. - start PPI (3) H/O major abdominal surgery: Code(s): Z98.890 - Other specified postprocedural states Status: Chronic Assessment and Plan: - extensive history of of abdominal surgeries including an open cholecystectomy, multiple surgeries following a hysterectomy for a rectovaginal fistula, diverting colostomy that has since been taken down, laparotomy with small-bowel resection for a small-bowel obstruction (2018, 2022). She is well known to [facility] general surgery team. (4) MARÍA (iron deficiency anemia): Qualifiers: Iron deficiency anemia type: unspecified iron deficiency Qualified Code(s): D50.9 - Iron deficiency anemia, unspecified Code(s): D50.9 - Iron deficiency anemia, unspecified Status: Chronic Assessment and Plan: - Hgb 14.7, at baseline - Hx: of MARÍA and B12 deficiency - transfuse if <7 - trend (5) Hypertension: Qualifiers: Hypertension type: primary hypertension Qualified Code(s): I10 - Essential (primary) hypertension Code(s): I10 - Essential (primary) hypertension Status: Chronic Assessment and Plan: - chronic, currently 136/80 - continue home medications: Amlodipine - monitor (6) Chronic respiratory failure with hypoxia: Code(s): J96.11 - Chronic respiratory failure with hypoxia Status: Chronic Assessment and Plan: - requires 2L as needed and at night, continue (7) Obstructive sleep apnea: Code(s): G47.33 - Obstructive sleep apnea (adult) (pediatric) Status: Chronic Assessment and Plan: - see above Plan Diet: NPO GI Prophylaxis: PPI IV DVT Prophylaxis: SCDs IV fluids: 1L -> 100 mL/hour Lines/Tubes: Peripheral IV Code Status: Full code Quality VTE Prophylaxis VTE prophylaxis: mechanical ordered Hospitalist MIPS Advance Care Plan I have confirmed that the patient's Advanced Care Plan is present, code status is documented, or surrogate decision maker is listed in patient medical record.: Yes Medication Reconciliation I have utilized all available resources to obtain, update and review the patients current medications (includes all prescriptions, OTC, herbals, cannabis, and nutritional supplements).: Yes
--- NOTE | 2025-04-26 16:45 | ADMGEN ---
This patient, Rebecca Ricci, was admitted to 3 [facility] Room 300-01. Patient/family oriented to hospital policies and general routines including ID bracelet, bed and alarms, visiting hours, pain management, procedures, bathroom and other care routines, personal items, smoking policy, room service/diet, and visiting hours. Information on how to activate the Rapid Response Team has been discussed. Patient/Family are encouraged to report perceived risks to care and to ask questions if they do not understand what they are told or what they should do.
[2025-04-26] MEDS: SODIUM CHLORIDE 0.9% IV 1,000 ML 100 ML IV CONT (17:07)
[2025-04-26 17:20] VITALS: BMI 29.1
[2025-04-26 19:50] VITALS: BP 139/69; PULSE 73; RESP 18; TEMP 36.6; O2SAT 97
[2025-04-26 20:00] VITALS: O2SAT 97
[2025-04-27] VITALS (8 sets, daily range): BP systolic 120–144; BP diastolic 57–73; PULSE 68–80; RESP 18–20; TEMP 35.7–36.7; O2SAT 90–97
[2025-04-27] MEDS: MORPHINE SULFATE (*CRX) 4 MG/ML INJ IV PUSH ×6 (00:12→20:43)
[2025-04-27] MEDS: ONDANSETRON INJ 4 MG/2 ML VIAL IV PUSH ×2 (01:10→20:43)
[2025-04-27] MEDS: PROMETHAZINE HCL 25 MG/ML AMPUL 12.5 MG IV PUSH ×4 (03:49→17:50)
[2025-04-27] MEDS: SODIUM CHLORIDE 0.9% IV 1,000 ML 100 ML IV CONT ×3 (03:50→23:00)
[2025-04-27 05:10] LABS: Hematocrit 39.4 % (37.0-47.0); Hemoglobin 12.4 g/dL (12.0-15.0); Immature Granulocyte Percent A 0.4 % (0-0.5); Lymphocytes Absolute Auto 1.36 K/mm3 (0.9-3.2); Mean Corpuscular HGB Conc 31.5 g/dl (32-36); Mean Corpuscular Hemoglobin 31.2 pg (26-34); Mean Corpuscular Volume 99.2 fl (80-100); Nucleated Red Blood Cells Absolute Auto 0.000 K/mm3 (0.0-0.012); Nucleated Red Blood Cells Perc 0.0 % (0.0-0.2); Platelet Count Result 278 k/mm3 (150-375); Red Blood Count 3.97 M/mm3 (4.2-5.4); White Blood Count 4.5 K/mm3 (4.5-10.0)
[2025-04-27 05:57] LABS: Alanine Aminotransferase 712 U/L (6-35); Albumin Level 3.6 g/dL (3.5-5.1); Alkaline Phosphatase 181 U/L (38-126); Anion Gap 4 mmol/L (4-12); Bilirubin,Total 2.1 mg/dL (0.2-1.3); Blood Urea Nitrogen 12 mg/dL (7-17); Calcium 8.5 mg/dL (8.4-10.2); Carbon Dioxide 27 mmol/L (22-30); Chloride 105 mmol/L (98-107); Estimated CRCL calculation 76 ml/min; Estimated Glomerular Filt Rate > 60; Glucose 108 mg/dL (65-110); Potassium 4.3 mmol/L (3.4-5.0); Sodium 136 mmol/L (137-145); Total Protein 6.4 g/dL (6.3-8.2)
[2025-04-27 06:00] LABS: Aspartate Amino Transferase 1389 U/L (14-36)
[2025-04-27] MEDS: FLUTICASONE/UMECLIDIN/VILANTER 100-62.5-25 MCG ELLIPTA 1 PUFF INHALATION (07:59)
--- NOTE | 2025-04-27 08:45 | P.PNIM_ITS ---
Progress Note: A&P Assessment and Plan (1) Gastroenteritis: Code(s): K52.9 - Noninfective gastroenteritis and colitis, unspecified Status: Acute Assessment and Plan: patient presented with abdominal pain CT abdomen showing thickening of the malik of the body of the stomach. Differential includes incomplete stomach wall distention, gastritis or mass. Short segment focal thickening of the malik of a bowel loop about the anastomotic suture line in bowel in the upper pelvis. Differential includes incomplete bowel wall distention or an inflammatory/infectious process. There are a few small bowel loops with thickened malik possibly secondary to enteritis. Small amount of nonspecific fluid in the pelvis. There are a few distended loops of bowel in the pelvis. Differential includes ileus or developing bowel obstruction. 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 She is well known to [facility] general surgery team. * General Surgery consulted * per surgery can continue with conservative measures * bowel rest * NPO * IVF * antiemetics * pain management * WBC down trending however * encourage ambulation * abdominal series with Ileus * general surgery to place NG tube for decompression (2) Ileus: Code(s): K56.7 - Ileus, unspecified Status: Acute Assessment and Plan: See Above (3) Elevated liver enzymes: Code(s): R74.8 - Abnormal levels of other serum enzymes Status: Acute Assessment and Plan: patient's initial liver enzymes within normal limits POA however follow-up liver enzymes significantly trended up: Tbill 2.1/AST 1389/ALT 712/ALKph 181 * GI consulted * patient NPO * likely need ERCP/MRCP * IV fluids * pain management * trend liver enzymes (4) MARÍA (iron deficiency anemia): Qualifiers: Iron deficiency anemia type: unspecified iron deficiency Qualified Code(s): D50.9 - Iron deficiency anemia, unspecified Code(s): D50.9 - Iron deficiency anemia, unspecified Status: Chronic Assessment and Plan: Hgb 14.7, at baseline Hx: of MARÍA and B12 deficiency no evidence of acute bleed * Trend H&H * Transfuse PRBC if Hgb <7.0 (5) Hypertension: Qualifiers: Hypertension type: primary hypertension Qualified Code(s): I10 - Essential (primary) hypertension Code(s): I10 - Essential (primary) hypertension Status: Chronic Assessment and Plan: * continue home medications: Amlodipine * monitor per unit protocol * may need to add hydralazine IVP while patient NPO for control (6) Chronic respiratory failure with hypoxia: Code(s): J96.11 - Chronic respiratory failure with hypoxia Status: Chronic Assessment and Plan: * continue patient's home supplemental oxygen at 2 L nasal cannula (7) Obstructive sleep apnea: Code(s): G47.33 - Obstructive sleep apnea (adult) (pediatric) Status: Chronic Assessment and Plan: see above Plan Code status: Full code per patient DVT prophylaxis: SCD Stress ulcer prophylaxis: Protonix PT/OT notes: NA Disposition: patient currently admitted to the medical unit under observation due to concern for ileus versus SBO currently with significant elevation in liver enzymes with consult to GI likely will need a MRCP versus ERCP patient is ambulatory on own and plan will be to discharge back to home when medically stable. Time Spent With Patient Time with patient: 15 - 25 minutes Subjective Date/time seen: 04/27/25 08:45 Interval history: 64-year-old female presented to the emergency department with complaints of epigastric pain and abdominal pain CT abdomen concerning for ileus versus SBO however patient's liver enzymes have have trended up with some concern for bile duct stone GI consulted for further evaluation. 04/27/2025: Assumed Care Patient still with epigastric pain and ABD tenderness. Reported she has not passed gas or had a BM since yesterday. She now has nausea and has been having episodes of vomiting Review of Systems Review of Systems: All systems reviewed & are unremarkable except as noted in HPI and below Exam Const: General: comfortable and no acute distress Other: , female, nontoxic appearance HENMT: Face/Nose/Sinus: Normal nares present Mouth: Yes moist mucous membranes Eyes: General: appearance normal, both eyes and all related structures Sclera: sclerae normal Pupils: Equal, round and reactive pupils present EOM: EOMs intact bilaterally Resp: Effort & Inspection: normal respiratory effort Auscultation: clear to auscultation bilaterally Cardio: Rate: regular rate Rhythm: regular rhythm Other: S1-S2 present without murmur, rub, ectopy GI: Other: Abdomen soft, nondistended. Diffuse tenderness, more prominent in the epigastric region. Normoactive to hyperactive bowel sounds in all quadrants. Skin: General skin exam: normal color and no rashes or lesions noted Wounds: no wounds Neuro: Cranial nerves: Yes Equal, round and reactive pupils present Speech: normal speech Motor exam (neuro): 5/5 motor strength present throughout Sensory Exam: normal sensation Other: A&O x4 Extrem: General: normal to inspection Psych: Mental Status: mental status grossly normal Affect: normal affect Other: Good insight and judgment, pleasant Objective Data Vital Signs Vital Signs: Vital Signs - 24 hr 04/26/25 10:21 04/26/25 14:30 04/26/25 19:50 Temperature 97.1 F L 97.7 F 97.9 F Pulse Rate 86 74 73 Respiratory Rate 20 20 18 Blood Pressure 135/91 H 136/80 139/69 Pulse Oximetry 97 94 97 Oxygen Delivery Room Air Oxygen Flow Rate 04/26/25 20:00 04/27/25 05:05 04/27/25 07:59 Temperature 96.2 F L Pulse Rate 69 70 Respiratory Rate 20 20 Blood Pressure 135/57 L Pulse Oximetry 97 97 Oxygen Delivery Nasal Cannula Oxygen Flow Rate 2 04/27/25 08:09 Temperature Pulse Rate 70 Respiratory Rate 18 Blood Pressure Pulse Oximetry 96 Oxygen Delivery Nasal Cannula Oxygen Flow Rate 2 Intake/Output Intake/Output: Intake & Output 04/24/25 04/25/25 04/26/25 04/27/25 23:59 23:59 23:59 23:59 Intake Total 1000 1050 Balance 1000 1050 Meds/Results Medications: Active Medications Generic Name Dose Route Start Last Admin Trade Name Freq PRN Reason Stop Dose Admin Acetaminophen 650 mg 04/26/25 15:37 Acetaminophen 650 Mg Suppository RECTAL Q6H PRN Mild Pain (1-3) or Fever Albuterol 2 puff 04/26/25 20:29 Albuterol Sulfate (*Sp) Aerosol 1 Puff INHALATION Q4HRT PRN Shortness Of Breath Or Wheezin Amlodipine Besylate 5 mg 04/27/25 09:00 Amlodipine Besylate 5 Mg Tablet PO DAILY ARELI Cyclobenzaprine HCl 5 mg 04/26/25 20:29 Cyclobenzaprine Hcl 5 Mg Tablet PO TID PRN MUSCLE SPASMS Dextrose 12.5 gm 04/26/25 15:37 Dextrose 50% 25 Gm/50 Ml Syringe IV PUSH PRN PRN Hypoglycemia Protocol Fluticasone Propionate 2 spray 04/26/25 20:29 Fluticasone Propionate 0.05% Na Spr 16 Gm Btl (*Bkc) NASAL DAILY PRN allergy symptoms Fluticasone/Umeclidinium/Vilanterol 1 puff 04/27/25 08:00 04/27/25 07:59 Fluticasone/Umeclidin/Vilanter 100-62.5-25 Mcg Ellipta INHALATION 1 puff DAILYRT ARELI Administration Glucagon 1 mg 04/26/25 15:37 Glucagon For Inj 1 Mg Vial IM PRN PRN Hypoglycemia Protocol Glucose 15 gm 04/26/25 15:37 Glucose Oral Gel 15 Gm Of Glucse In 37.5 Gm Tube PO PRN PRN Hypoglycemia Protocol Sodium Chloride 1,000 mls @ 100 mls/hr 04/26/25 15:40 04/27/25 03:50 Normal Saline Iv IV CONT 100 mls/hr .Q10H ARELI Administration Dextrose 1,000 mls @ 100 mls/hr 04/26/25 15:37 Dextrose 5% 1,000 Ml IVPB PRN PRN Hypoglycemia Protocol Morphine Sulfate 4 mg 04/26/25 15:37 04/27/25 03:50 Morphine Sulfate (*Crx) 4 Mg/Ml Inj IV PUSH 4 mg Q2H PRN Administration Pain Rated 7-10 Ondansetron HCl 4 mg 04/26/25 15:37 04/27/25 01:10 Ondansetron Inj 4 Mg/2 Ml Vial IV PUSH 4 mg Q4H PRN Administration Nausea Pantoprazole Sodium 40 mg 04/27/25 09:00 Pantoprazole Sodium Iv 40 Mg Vial IV PUSH QAM ARELI Promethazine HCl 12.5 mg 04/27/25 00:21 04/27/25 03:49 Promethazine Hcl 25 Mg/Ml Ampul IV PUSH 12.5 mg Q4H PRN Administration Nausea And Vomiting Ropinirole HCl 1 mg 04/26/25 21:00 04/26/25 21:19 Ropinirole Hcl 1 Mg Tablet PO 1 mg HS ARELI Administration Tramadol HCl 50 mg 04/26/25 20:29 Tramadol Hcl (*Crx) 50 Mg Tablet PO Q6H PRN Pain 4-6 Radiology Results: ITS Impressions Abdomen/Pelvis CT 04/26/25 12:19 IMPRESSION: 1. Thickening of the malik of the body of the stomach. Differential includes incomplete stomach wall distention, gastritis or mass. 2. Short segment focal thickening of the malik of a bowel loop about the anastomotic suture line in bowel in the upper pelvis. Differential includes incomplete bowel wall distention or an inflammatory/infectious process. 3. There are a few small bowel loops with thickened malik possibly secondary to enteritis. 4. Small amount of nonspecific fluid in the pelvis 5. There are a few distended loops of bowel in the pelvis. Differential includes ileus or developing bowel obstruction. Labs Labs: Laboratory Results - last 24 hr 04/26/25 04/26/25 04/26/25 11:37 11:44 11:59 WBC 12.8 H RBC 4.67 Hgb 14.7 Hct 44.7 MCV 95.7 MCH 31.5 MCHC 32.9 RDW 13.9 Plt Count 363 MPV 9.8 Immature Gran % (Auto) 0.6 H Neut % (Auto) 74.9 H Lymph % (Auto) 17.7 L [place] % (Auto) 5.6 Eos % (Auto) 0.8 Baso % (Auto) 0.4 Lymph # (Auto) 2.27 [place] # (Auto) 0.7 H Eos # (Auto) 0.1 Baso # (Auto) 0.1 Abs Immat Gran (auto) 0.08 H Absolute Neuts (auto) 9.6 H Absolute Nucleated RBC 0.000 Nucleated RBC % 0.0 Sodium 139 Potassium 4.3 Chloride 101 Carbon Dioxide 30 Anion Gap 8 BUN 16 Creatinine 0.58 L 0.70 Estim Creat Clear Calc 72 60 Estimated GFR > 60 > 60 Glucose 105 Lactic Acid 1.7 Calcium 9.5 Total Bilirubin 0.3 AST 29 ALT 17 Alkaline Phosphatase 87 Total Protein 7.8 Albumin 4.5 Lipase 37 Urine Color Yellow Urine Appearance Clear Urine pH 8.0 Ur Specific [place] 1.020 Urine Protein Negative Urine Glucose (UA) Negative Urine Ketones Negative Ur Blood (Man) Negative Urine Nitrate Negative Urine Bilirubin Negative Urine Urobilinogen 1.0 Leukocyte Esterase Rfl Negative 04/27/25 05:00 WBC 4.5 RBC 3.97 L Hgb 12.4 Hct 39.4 MCV 99.2 MCH 31.2 MCHC 31.5 L RDW 13.8 Plt Count 278 MPV 9.7 Immature Gran % (Auto) 0.4 Neut % (Auto) 58.7 Lymph % (Auto) 30.6 [place] % (Auto) 9.0 H Eos % (Auto) 0.9 Baso % (Auto) 0.4 Lymph # (Auto) 1.36 [place] # (Auto) 0.4 Eos # (Auto) 0.0 Baso # (Auto) 0.0 Abs Immat Gran (auto) 0.02 Absolute Neuts (auto) 2.6 Absolute Nucleated RBC 0.000 Nucleated RBC % 0.0 Sodium 136 L Potassium 4.3 Chloride 105 Carbon Dioxide 27 Anion Gap 4 BUN 12 Creatinine 0.55 L Estim Creat Clear Calc 76 Estimated GFR > 60 Glucose 108 Lactic Acid Calcium 8.5 Total Bilirubin 2.1 H AST 1389 H ALT 712 H Alkaline Phosphatase 181 H Total Protein 6.4 Albumin 3.6 Lipase Urine Color Urine Appearance Urine pH Ur Specific [place] Urine Protein Urine Glucose (UA) Urine Ketones Ur Blood (Man) Urine Nitrate Urine Bilirubin Urine Urobilinogen Leukocyte Esterase Rfl Quality VTE Prophylaxis VTE prophylaxis: mechanical ordered -Patient's previous records reviewed on admission -ER notes reviewed in detail on admission -discussed all findings and current treatment plan with patient/Family/POA -Consultations reviewed for recommendations -Patient's disposition for safe discharge discussed with case specialist Dictation performed by [employer] direct speech recognition software, therefore fiber analyst variants and typographical errors may occur. Hospitalist MIPS Advance Care Plan I have confirmed that the patient's Advanced Care Plan is present, code status is documented, or surrogate decision maker is listed in patient medical record.: Yes Medication Reconciliation I have utilized all available resources to obtain, update and review the patients current medications (includes all prescriptions, OTC, herbals, cannabis, and nutritional supplements).: Yes The patient is not eligible for med reconciliation; the patient is in a emergent medical situation where delaying treatment would jeopardize the patients health.: No
[2025-04-27] MEDS: PANTOPRAZOLE SODIUM IV 40 MG VIAL IV PUSH (08:47)
--- NOTE | 2025-04-27 10:41 | P.PNGS_ITS ---
Progress Note: A&P Assessment and Plan (1) Ileus: Code(s): K56.7 - Ileus, unspecified Status: Acute Assessment and Plan: * Obstructive series this morning showed findings consistent with an ileus. There was a significant amount of stool in the colon and her stomach is distended. She also started vomiting overnight. * Will place an NG tube and keep her NPO with IV fluids * Repeat labs and exam tomorrow (2) Gastroenteritis: Code(s): K52.9 - Noninfective gastroenteritis and colitis, unspecified Status: Acute Assessment and Plan: * Continue IV fluids and medical management * GI consulted (3) Epigastric pain: Code(s): R10.13 - Epigastric pain Status: Acute Assessment and Plan: * Epigastric pain, primarily postprandial, x over a month, with findings of gastritis on CT. * GI consulted (4) H/O major abdominal surgery: Code(s): Z98.890 - Other specified postprocedural states Status: Chronic (5) Chronic respiratory failure with hypoxia: Code(s): J96.11 - Chronic respiratory failure with hypoxia Status: Chronic (6) COPD (chronic obstructive pulmonary disease): Code(s): J44.9 - Chronic obstructive pulmonary disease, unspecified Status: Chronic (7) Obstructive sleep apnea: Code(s): G47.33 - Obstructive sleep apnea (adult) (pediatric) Status: Chronic (8) Tobacco dependence: Code(s): F17.200 - Nicotine dependence, unspecified, uncomplicated Status: Acute Plan I have discussed the patient's case and plan of care with Dr. Madsen. Subjective Subjective Date/Time Seen: 04/27/25 10:41 Interval history: Patient still having abdominal pain today. She reports her pain is in the LLQ and mild pain in the epigastric area. She is passing less flatus and no BM since yesterday morning. She had more nausea overnight and reports 3 small episodes of emesis that appeared like undigested food. Exam Const: General: comfortable and no acute distress GI: Inspection: no visible herniation and other (mildly distended) GI Palp: Yes Soft to palpation, Yes Tenderness to palpation present (GI) (LLQ and epigastric area), No Guarding due to palpation present (GI) and No Rebound tenderness present Auscultation: Hypoactive bowel sounds present Objective Data Vital Signs Vital Signs: Vital Signs - 24 hr 04/26/25 14:30 04/26/25 19:50 04/26/25 20:00 Temperature 97.7 F 97.9 F Pulse Rate 74 73 Respiratory Rate 20 18 Blood Pressure 136/80 139/69 Pulse Oximetry 94 97 97 Oxygen Delivery Nasal Cannula Oxygen Flow Rate 2 04/27/25 05:05 04/27/25 07:59 04/27/25 08:09 Temperature 96.2 F L Pulse Rate 69 70 70 Respiratory Rate 20 20 18 Blood Pressure 135/57 L Pulse Oximetry 97 96 Oxygen Delivery Nasal Cannula Oxygen Flow Rate 2 04/27/25 08:57 04/27/25 08:57 Temperature 97.3 F L Pulse Rate 75 Respiratory Rate 20 Blood Pressure 120/63 Pulse Oximetry 90 Oxygen Delivery Nasal Cannula Oxygen Flow Rate 2 Intake/Output Intake/Output: Intake & Output 04/24/25 04/25/25 04/26/25 04/27/25 23:59 23:59 23:59 23:59 Intake Total 1000 1050 Balance 1000 1050 Meds/Results Medications: Active Medications Generic Name Dose Route Start Last Admin Trade Name Freq PRN Reason Stop Dose Admin Acetaminophen 650 mg 04/26/25 15:37 Acetaminophen 650 Mg Suppository RECTAL Q6H PRN Mild Pain (1-3) or Fever Albuterol 2 puff 04/26/25 20:29 Albuterol Sulfate (*Sp) Aerosol 1 Puff INHALATION Q4HRT PRN Shortness Of Breath Or Wheezin Amlodipine Besylate 5 mg 04/27/25 09:00 04/27/25 08:45 Amlodipine Besylate 5 Mg Tablet PO 5 mg DAILY ARELI Administration Cyclobenzaprine HCl 5 mg 04/26/25 20:29 Cyclobenzaprine Hcl 5 Mg Tablet PO TID PRN MUSCLE SPASMS Dextrose 12.5 gm 04/26/25 15:37 Dextrose 50% 25 Gm/50 Ml Syringe IV PUSH PRN PRN Hypoglycemia Protocol Fluticasone Propionate 2 spray 04/26/25 20:29 Fluticasone Propionate 0.05% Na Spr 16 Gm Btl (*Bkc) NASAL DAILY PRN allergy symptoms Fluticasone/Umeclidinium/Vilanterol 1 puff 04/27/25 08:00 04/27/25 07:59 Fluticasone/Umeclidin/Vilanter 100-62.5-25 Mcg Ellipta INHALATION 1 puff DAILYRT ARELI Administration Glucagon 1 mg 04/26/25 15:37 Glucagon For Inj 1 Mg Vial IM PRN PRN Hypoglycemia Protocol Glucose 15 gm 04/26/25 15:37 Glucose Oral Gel 15 Gm Of Glucse In 37.5 Gm Tube PO PRN PRN Hypoglycemia Protocol Sodium Chloride 1,000 mls @ 100 mls/hr 04/26/25 15:40 04/27/25 03:50 Normal Saline Iv IV CONT 100 mls/hr .Q10H ARELI Administration Dextrose 1,000 mls @ 100 mls/hr 04/26/25 15:37 Dextrose 5% 1,000 Ml IVPB PRN PRN Hypoglycemia Protocol Morphine Sulfate 4 mg 04/26/25 15:37 04/27/25 08:42 Morphine Sulfate (*Crx) 4 Mg/Ml Inj IV PUSH 4 mg Q2H PRN Administration Pain Rated 7-10 Ondansetron HCl 4 mg 04/26/25 15:37 04/27/25 01:10 Ondansetron Inj 4 Mg/2 Ml Vial IV PUSH 4 mg Q4H PRN Administration Nausea Pantoprazole Sodium 40 mg 04/27/25 09:00 04/27/25 08:47 Pantoprazole Sodium Iv 40 Mg Vial IV PUSH 40 mg QAM ARELI Administration Promethazine HCl 12.5 mg 04/27/25 00:21 04/27/25 08:43 Promethazine Hcl 25 Mg/Ml Ampul IV PUSH 12.5 mg Q4H PRN Administration Nausea And Vomiting Ropinirole HCl 1 mg 04/26/25 21:00 04/26/25 21:19 Ropinirole Hcl 1 Mg Tablet PO 1 mg HS ARELI Administration Tramadol HCl 50 mg 04/26/25 20:29 Tramadol Hcl (*Crx) 50 Mg Tablet PO Q6H PRN Pain 4-6 Radiology Results: ITS Impressions Abdomen/Pelvis CT 04/26/25 12:19 IMPRESSION: 1. Thickening of the malik of the body of the stomach. Differential includes incomplete stomach wall distention, gastritis or mass. 2. Short segment focal thickening of the malik of a bowel loop about the anastomotic suture line in bowel in the upper pelvis. Differential includes incomplete bowel wall distention or an inflammatory/infectious process. 3. There are a few small bowel loops with thickened malik possibly secondary to enteritis. 4. Small amount of nonspecific fluid in the pelvis 5. There are a few distended loops of bowel in the pelvis. Differential includes ileus or developing bowel obstruction. Abdomen X-Ray 04/27/25 09:23 IMPRESSION: 1. Moderate gas in the colon with air-fluid level in the stomach, most likely ileus. No definite obstruction. Labs Labs: Laboratory Results - last 24 hr 04/26/25 04/26/25 04/26/25 11:37 11:44 11:59 WBC 12.8 H RBC 4.67 Hgb 14.7 Hct 44.7 MCV 95.7 MCH 31.5 MCHC 32.9 RDW 13.9 Plt Count 363 MPV 9.8 Immature Gran % (Auto) 0.6 H Neut % (Auto) 74.9 H Lymph % (Auto) 17.7 L [place] % (Auto) 5.6 Eos % (Auto) 0.8 Baso % (Auto) 0.4 Lymph # (Auto) 2.27 [place] # (Auto) 0.7 H Eos # (Auto) 0.1 Baso # (Auto) 0.1 Abs Immat Gran (auto) 0.08 H Absolute Neuts (auto) 9.6 H Absolute Nucleated RBC 0.000 Nucleated RBC % 0.0 Sodium 139 Potassium 4.3 Chloride 101 Carbon Dioxide 30 Anion Gap 8 BUN 16 Creatinine 0.58 L 0.70 Estim Creat Clear Calc 72 60 Estimated GFR > 60 > 60 Glucose 105 Lactic Acid 1.7 Calcium 9.5 Total Bilirubin 0.3 AST 29 ALT 17 Alkaline Phosphatase 87 Total Protein 7.8 Albumin 4.5 Lipase 37 Urine Color Yellow Urine Appearance Clear Urine pH 8.0 Ur Specific [place] 1.020 Urine Protein Negative Urine Glucose (UA) Negative Urine Ketones Negative Ur Blood (Man) Negative Urine Nitrate Negative Urine Bilirubin Negative Urine Urobilinogen 1.0 Leukocyte Esterase Rfl Negative 04/27/25 05:00 WBC 4.5 RBC 3.97 L Hgb 12.4 Hct 39.4 MCV 99.2 MCH 31.2 MCHC 31.5 L RDW 13.8 Plt Count 278 MPV 9.7 Immature Gran % (Auto) 0.4 Neut % (Auto) 58.7 Lymph % (Auto) 30.6 [place] % (Auto) 9.0 H Eos % (Auto) 0.9 Baso % (Auto) 0.4 Lymph # (Auto) 1.36 [place] # (Auto) 0.4 Eos # (Auto) 0.0 Baso # (Auto) 0.0 Abs Immat Gran (auto) 0.02 Absolute Neuts (auto) 2.6 Absolute Nucleated RBC 0.000 Nucleated RBC % 0.0 Sodium 136 L Potassium 4.3 Chloride 105 Carbon Dioxide 27 Anion Gap 4 BUN 12 Creatinine 0.55 L Estim Creat Clear Calc 76 Estimated GFR > 60 Glucose 108 Lactic Acid Calcium 8.5 Total Bilirubin 2.1 H AST 1389 H ALT 712 H Alkaline Phosphatase 181 H Total Protein 6.4 Albumin 3.6 Lipase Urine Color Urine Appearance Urine pH Ur Specific [place] Urine Protein Urine Glucose (UA) Urine Ketones Ur Blood (Man) Urine Nitrate Urine Bilirubin Urine Urobilinogen Leukocyte Esterase Rfl
[2025-04-27] MEDS: BISACODYL 10 MG SUPPOSITORY RECTAL (12:07)
[2025-04-27 13:41] LABS: Hepatitis B Surface Antigen Negative (Negative)
[2025-04-27 13:47] LABS: HAV RESULT Negative (Negative); Hepatitis B Core IgM Result Negative (Negative)
[2025-04-27 15:47] LABS: Lipase 71 U/L (23-300)
--- NOTE | 2025-04-27 16:16 | P.CONGI_ITS ---
Assessment and Plan Assessment and plan (1) Elevated liver enzymes: Code(s): R74.8 - Abnormal levels of other serum enzymes Status: Acute (2) Epigastric pain: Code(s): R10.13 - Epigastric pain Status: Acute (3) Gastroenteritis: Code(s): K52.9 - Noninfective gastroenteritis and colitis, unspecified Status: Acute (4) Nausea & vomiting: Qualifiers: Vomiting type: unspecified Qualified Code(s): R11.2 - Nausea with vomiting, unspecified Code(s): R11.2 - Nausea with vomiting, unspecified Status: Acute (5) Ileus: Code(s): K56.7 - Ileus, unspecified Status: Acute (6) Gastroesophageal reflux disease: Onset Date: Unknown Qualifiers: Esophagitis presence: without esophagitis Qualified Code(s): K21.9 - Gastro-esophageal reflux disease without esophagitis Code(s): K21.9 - Gastro-esophageal reflux disease without esophagitis Status: Chronic (7) Abdominal pain: Code(s): R10.9 - Unspecified abdominal pain Status: Acute Plan PLAN: 1. Elevated Liver enzymes/Epigastric pain:Liver enzymes noted to be significantly elevated this morning, normal on admission. reports history of intermittent post-prandial epigastric abdominal pain for the past 6 weeks with associated nausea and dry heaves. States post cholecystectomy. CT scan showed Mild intrahepatic biliary ductal dilatation, unchanged presumably secondary to previous cholecystectomy. Stable cyst in the left lobe of the liver. The liver is otherwise unremarkable. EGD completed 07/28/2023 was normal. Symptoms concerning for a possible retained stone. -MRCP ordered. -Acute hepatitis panel -Lipase. 2) Gastroenteritis/GERD//Thickening of the malik of the body of the stomach: EGD in 2022 with normal exam. Thickening of malik of stomach could be secondary to gastroenteritis. Last BM yesterday. She may need ERCP pending MRCP results, will exam stomach if ERCP is needed otherwise no EGD planned at this time. - Continue IV fluids and medical management - continue PPI 3. Ileus: Followed by surgery. 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 GI consulted for evaluation of Gastric wall thickening and post-prandial epigastric pain. She presented to [facility] yesterday for complaints of diffuse abdominal pain with associated nausea and vomiting. Reports pain is worse in the epigastric region and triggered by eating. Has been intermittent for the past 1 1/2 months. She describes the pain as labor pain and reports associated nausea and dry heaves. She has history of GERD maintained on pantoprazole daily, reports compliance with medication at. She reports having some loose stools but takes miralax daily for constipation. She reports having 1-2 bowel movements daily. she reports having episode of vomiting last night. Her last bowel movement was yesterday. CT scan of abdomen/pelvis showed Thickening of the malik of the body of the stomach. Differential includes incomplete stomach wall distention, gastritis or mass, Short segment focal thickening of the malik of a bowel loop about the anastomotic suture line in bowel in the upper pelvis. Differential includes incomplete bowel wall distention or an inflammatory/infectious process, There are a few small bowel loops with thickened malik possibly secondary to enteritis, Small amount of nonspecific fluid in the pelvis, There are a few distended loops of bowel in the pelvis. Differential includes ileus or developing bowel obstruction. Labs on admission with WBC 12.8, down to 4.5 this a.m. No anemia noted. Electrolytes fairly normal. Lactic acid within normal range at 1.7. Lipase normal. Liver enzymes on admission were normal but this morning total bili elevated at 2.1, AST 1389, ALT 712, alk-phos 181. CT scan showed Stable cyst in the left lower liver, the liver otherwise was unremarkable. She denies any history of alcohol use. ENDOSCOPY HISTORY: EGD: 07/28/2023 (Dr. Arriaza) for GERD and recurrent small-bowel obstructions The esophagus, stomach, and duodenum were examined and found to be normal with no evidence of esophagitis, Sellers's esophagus, ulcers, masses, or gastritis. The Z-line was located at 39 cm from the incisors. Biopsies of the small intestine, stomach, and esophagus showed no histologic abnormality. No H. pylori was identified. Endoscopic diagnosis: Normal EGD to the depth of insertion. COLONOSCOPY: 07/28/2023 (Dr. Arriaza) for routine screening and recurrent small-bowel obstructions A colo-colonic anastomosis was noted in the rectosigmoid. The terminal ileum and colon were otherwise normal with no colitis, polyps, or diverticula. A few internal hemorrhoids and hemorrhoidal skin tags were present. Endoscopic diagnosis: [place]-colonic anastomosis, internal hemorrhoids, anal skin tags Repeat colonoscopy was recommended in 10 years. Review of Systems 2 Constitutional: Constitutional: Reports anorexia and Denies fatigue Eyes: Eyes: Denies change in vision ENT: Denies hoarseness Cardiovascular: Cardiovascular: Denies chest pain Respiratory: Respiratory: Denies cough Gastrointestinal: Gastrointestinal: Reports as per HPI Genitourinary: Genitourinary: Denies urinary frequency Musculoskeletal: Musculoskeletal: Denies abnormal gait and Denies myalgias Integumentary/Breasts: Skin/Breast: Denies rash and Denies jaundice Neurologic: Denies abnormal gait Psychiatric: Psychiatric: Reports change in appetite Endocrine: Endocrine: Denies fatigue Hematologic/Lymphatic: Hematologic/Lymphatic: Denies easy bruising Allergic/Immunologic: Allergic/Immunologic: Reports GI upset with certain foods PMFSH Past Medical History Medical History Partial small bowel obstruction (~02/12/20) Partial small bowel obstruction Vaginal itching Small bowel obstruction Diarrhea SBO (small bowel obstruction) Partial small bowel obstruction Small bowel obstruction Small bowel obstruction Postoperative ileus Pneumothorax Encounter for surgical aftercare following surgery on the digestive system GERD without esophagitis Chronic constipation TIA (transient ischemic attack) (~2000) History of vaginal delivery B12 deficiency Iron deficiency anemia Restless leg syndrome, controlled Small bowel obstruction due to adhesions Previous, multiple admissions for such. Scoliosis Chronic back pain Vitamin D deficiency Migraine headache Depression with anxiety Peripheral neuropathy Hypothyroidism Dyslipidemia Obstructive sleep apnea Chronic respiratory failure with hypoxia On 2 liters nasal cannula p.r.n. Chronic obstructive pulmonary disease Surgical History Surgical History H/O exploratory laparotomy History of colostomy reversal History of colostomy History of neck surgery History of hysterectomy [place] teeth removed History of bowel resection 2010 low anterior resection Status post small bowel resection (~01/2019) Exploratory laparotomy with resection of 36 centimeters of the small bowel with extensive adhesiolysis and ileal-ileal anastomosis. Bladder prolapse Repair of bladder prolapse. Rectal prolapse Rectal prolapse repair. History of cholecystectomy Open cholecystectomy History of tonsillectomy and adenoidectomy History of eye surgery Treatment of amblyopia. History of bilateral cataract extraction Family History Family History Father Cirrhosis Alcoholism Mother Emphysema of lung Alcoholism Sibling No problems noted. Social History Social History Social History: The patient lives in [place] with her significant other, Luis Fernando. They have been together since 1997. 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 She smoked about a pack of cigarettes per day since she was in her 20s. She denies alcohol and illicit substance abuse. She designates her son, Rohit, as her surrogate decision maker and she wishes to be a full code. Smoking packs per day: 1 Smoking cigarettes per day: 20.0 Years smoked: 40 Smoking pack-years: 40.00 Smoking status: Current every day smoker Tobacco type: cigarettes Second hand tobacco smoke exposure: Yes Alcohol intake: never Substance use: never Substance use type: marijuana Other substance usage details: gummies Do You Feel Safe in your Home?: Yes Lack of Transportation: No Lack of Food: Never True Current Housing: I Have Housing Concerned About Future Housing: No Difficulty Paying Gas/Electric Bills: No Difficulty Paying for Meds: No Currently Unemployed: No Education: High School Diploma/GED Difficulty w/ Childcare or Family Care: No Living arrangements: with family Occupation/Education: retired Gender identity (if verbalized by the patient): Female Sexual Orientation (if Verbalized by the Patient): Straight or Heterosexual Spiritual care concerns: Yes Agree to blood products: Yes Meds Home Medications and Allergies Home Medications ?Medication ?Instructions ?Recorded ?Confirmed ?Type albuterol sulfate 90 mcg/actuation 2 inhalation inhala tion Q4H PRN 09/21/19 04/26/25 History aerosol inhaler (ProAir HFA) Shortness Of Breath Or Wh eezing amlodipine 5 mg tablet See Rx Instructions .Route 0 01/17/25 04/26/25 Rx .COMPLEX #90 tabs cyclobenzaprine 5 mg tablet 5 mg PO TID PRN Pain (Scal e Score 01/17/25 04/26/25 Rx 4-6) #30 tabs pantoprazole 20 mg tablet,delayed See Rx Instructions .Route 01/17/25 04/26/25 Rx release .COMPLEX #90 tabs fluticasone fur. 100 mcg-umeclid 1 inh inhalation Q24H 01/26/25 04/26/25 History 62.5 mcg-vilant 25 mcg inhalat.powder (Trelegy Ellipta) fluticasone propionate 50 2 spray intranasal DAILY PRN 01/26/25 04/26/25 History mcg/actuation nasal allergy symptoms spray,suspension ropinirole 1 mg tablet 1 mg PO HS 01/26/25 04/26/25 History tramadol 50 mg tablet 50 mg PO Q6H PRN pain #60 ta bs 03/29/25 04/26/25 Rx Allergies Allergy/AdvReac Type Severity Reaction Status Date / Time famotidine Allergy Intermediate Itching Verified 04/26/25 19:44 latex Allergy Unknown unknown Verified 04/26/25 19:44 Penicillins Allergy Unknown unknown Verified 04/26/25 19:44 Vital Signs Vital Signs - 24 hr 04/26/25 19:50 04/26/25 20:00 04/27/25 05:05 Temperature 97.9 F 96.2 F L Pulse Rate 73 69 Respiratory Rate 18 20 Blood Pressure 139/69 135/57 L Pulse Oximetry 97 97 97 Oxygen Delivery Nasal Cannula Oxygen Flow Rate 2 04/27/25 07:59 04/27/25 08:09 04/27/25 08:57 Temperature Pulse Rate 70 70 75 Respiratory Rate 20 18 20 Blood Pressure Pulse Oximetry 96 90 Oxygen Delivery Nasal Cannula Nasal Cannula Oxygen Flow Rate 2 2 04/27/25 08:57 Temperature 97.3 F L Pulse Rate Respiratory Rate Blood Pressure 120/63 Pulse Oximetry Oxygen Delivery Oxygen Flow Rate Exam 2 Const: General: comfortable HENMT: Face/Nose/Sinus: Normal nares present Eyes: Sclera: sclerae normal Neck: Neck: supple Resp: Effort & Inspection: normal respiratory effort Cardio: Rate: regular rate Rhythm: regular rhythm GI: Inspection: non-distended GI Palp: Yes abdominal tenderness and Yes Soft to palpation Auscultation: normal bowel sounds Rectal Exam: deferred Skin: General skin exam: normal color Neuro: Speech: normal speech Extrem: General: normal to inspection Psych: Mental Status: mental status grossly normal Results Labs 04/27/25 05:00 04/27/25 05:00 Labs: Short CBC 04/27/25 Range/Units 05:00 WBC 4.5 (4.5-10.0) K/mm3 Hgb 12.4 (12.0-15.0) g/dL Hct 39.4 (37.0-47.0) % Plt Count 278 (150-375) k/mm3 BMP 04/27/25 05:00 Sodium 136 L Potassium 4.3 Chloride 105 Carbon Dioxide 27 BUN 12 Creatinine 0.55 L Glucose 108 Calcium 8.5 Liver Function 04/27/25 Range/Units 05:00 Total Bilirubin 2.1 H (0.2-1.3) mg/dL AST 1389 H (14-36) U/L ALT 712 H (6-35) U/L Alkaline Phosphatase 181 H (38-126) U/L Albumin 3.6 (3.5-5.1) g/dL
[2025-04-28] MEDS: MORPHINE SULFATE (*CRX) 4 MG/ML INJ IV PUSH ×6 (02:40→20:18)
[2025-04-28 05:45] VITALS: BP 108/62; PULSE 75; RESP 18; TEMP 36.1; O2SAT 94
[2025-04-28 06:10] LABS: Hematocrit 38.5 % (37.0-47.0); Hemoglobin 12.2 g/dL (12.0-15.0); Mean Corpuscular HGB Conc 31.7 g/dl (32-36); Mean Corpuscular Hemoglobin 31.2 pg (26-34); Mean Corpuscular Volume 98.5 fl (80-100); Platelet Count Result 266 k/mm3 (150-375); Red Blood Count 3.91 M/mm3 (4.2-5.4); White Blood Count 9.8 K/mm3 (4.5-10.0)
[2025-04-28 06:35] LABS: Alanine Aminotransferase 468 U/L (6-35); Albumin Level 3.5 g/dL (3.5-5.1); Alkaline Phosphatase 225 U/L (38-126); Anion Gap 4 mmol/L (4-12); Aspartate Amino Transferase 388 U/L (14-36); Bilirubin,Total 1.0 mg/dL (0.2-1.3); Blood Urea Nitrogen 9 mg/dL (7-17); Calcium 8.0 mg/dL (8.4-10.2); Carbon Dioxide 26 mmol/L (22-30); Chloride 103 mmol/L (98-107); Estimated CRCL calculation 77 ml/min; Estimated Glomerular Filt Rate > 60; Glucose 85 mg/dL (65-110); Magnesium 1.7 mg/dL (1.6-2.3); Potassium 3.5 mmol/L (3.4-5.0); Sodium 133 mmol/L (137-145); Total Protein 6.1 g/dL (6.3-8.2)
--- NOTE | 2025-04-28 06:50 | WPDGIPROGNO ---
Progress Note: A&P Assessment and Plan (1) SBO (small bowel obstruction): Code(s): K56.609 - Unspecified intestinal obstruction, unspecified as to partial versus complete obstruction Status: Acute Assessment and Plan: Yesterday, the patient experienced an exacerbation of abdominal pain and distension. An abdominal X-ray suggested an ileus, and the surgical team initiated nasogastric suction. This morning, she appears to be somewhat relieved, though she is still draining dark green material through the NG tube. Notably, her liver enzymes were significantly elevated yesterday, with AST at 1389 and ALT at 712, while bilirubin was 2.1. This morning, these levels have trended down to AST 388 and ALT 468, with bilirubin at 1.0. Her lipase remains normal. A sonogram showed mild biliary distention, which is expected given her history of cholecystectomy. The rapid rise and subsequent fall in transaminases suggest a residual common bile duct stone from her prior cholecystectomy. An MRCP will be performed today to confirm this. If a stone is found, an ERCP will be planned. Sphincter of Oddi dysfunction is also a possibility that could explain these lab abnormalities. (2) Elevated liver enzymes: Code(s): R74.8 - Abnormal levels of other serum enzymes Status: Acute Subjective Date/time seen: 04/28/25 06:50 Exam Narrative: Patient with NG tube in place. Abdomen: Soft, nontender, scant bowel sounds. Still distended. Objective Data Vital Signs Vital Signs: Vital Signs - 24 hr 04/27/25 07:59 04/27/25 08:09 04/27/25 08:57 Temperature Pulse Rate 70 70 75 Respiratory Rate 20 18 20 Blood Pressure Pulse Oximetry 96 90 Oxygen Delivery Nasal Cannula Nasal Cannula Oxygen Flow Rate 2 2 04/27/25 08:57 04/27/25 18:00 04/27/25 20:00 Temperature 97.3 F L 97.4 F L Pulse Rate 68 80 Respiratory Rate 20 18 Blood Pressure 120/63 130/73 Pulse Oximetry 91 92 Oxygen Delivery Nasal Cannula Oxygen Flow Rate 2 04/27/25 20:25 04/27/25 23:00 04/28/25 05:45 Temperature 98.1 F 97 F L Pulse Rate 80 75 Respiratory Rate 18 18 Blood Pressure 144/70 H 108/62 Pulse Oximetry 92 92 94 Oxygen Delivery Nasal Cannula Oxygen Flow Rate 2 Intake/Output Intake/Output: Intake & Output 04/25/25 04/26/25 04/27/25 04/28/25 23:59 23:59 23:59 23:59 Intake Total 1000 2865 Output Total 300 Balance 1000 2865 -300 Meds/Results Medications: Active Medications Generic Name Dose Route Start Last Admin Trade Name Freq PRN Reason Stop Dose Admin Acetaminophen 650 mg 04/26/25 15:37 Acetaminophen 650 Mg Suppository RECTAL Q6H PRN Mild Pain (1-3) or Fever Albuterol 2 puff 04/26/25 20:29 Albuterol Sulfate (*Sp) Aerosol 1 Puff INHALATION Q4HRT PRN Shortness Of Breath Or Wheezin Amlodipine Besylate 5 mg 04/27/25 09:00 04/27/25 08:45 Amlodipine Besylate 5 Mg Tablet PO 5 mg DAILY ARELI Administration Cyclobenzaprine HCl 5 mg 04/26/25 20:29 Cyclobenzaprine Hcl 5 Mg Tablet PO TID PRN MUSCLE SPASMS Dextrose 12.5 gm 04/26/25 15:37 Dextrose 50% 25 Gm/50 Ml Syringe IV PUSH PRN PRN Hypoglycemia Protocol Fluticasone Propionate 2 spray 04/26/25 20:29 Fluticasone Propionate 0.05% Na Spr 16 Gm Btl (*Bkc) NASAL DAILY PRN allergy symptoms Fluticasone/Umeclidinium/Vilanterol 1 puff 04/27/25 08:00 04/27/25 07:59 Fluticasone/Umeclidin/Vilanter 100-62.5-25 Mcg Ellipta INHALATION 1 puff DAILYRT ARELI Administration Glucagon 1 mg 04/26/25 15:37 Glucagon For Inj 1 Mg Vial IM PRN PRN Hypoglycemia Protocol Glucose 15 gm 04/26/25 15:37 Glucose Oral Gel 15 Gm Of Glucse In 37.5 Gm Tube PO PRN PRN Hypoglycemia Protocol Sodium Chloride 1,000 mls @ 100 mls/hr 04/26/25 15:40 04/27/25 23:00 Normal Saline Iv IV CONT 100 mls/hr .Q10H ARELI Administration Dextrose 1,000 mls @ 100 mls/hr 04/26/25 15:37 Dextrose 5% 1,000 Ml IVPB PRN PRN Hypoglycemia Protocol Morphine Sulfate 4 mg 04/26/25 15:37 04/28/25 05:03 Morphine Sulfate (*Crx) 4 Mg/Ml Inj IV PUSH 4 mg Q2H PRN Administration Pain Rated 7-10 Ondansetron HCl 4 mg 04/26/25 15:37 04/27/25 20:43 Ondansetron Inj 4 Mg/2 Ml Vial IV PUSH 4 mg Q4H PRN Administration Nausea Pantoprazole Sodium 40 mg 04/27/25 09:00 04/27/25 08:47 Pantoprazole Sodium Iv 40 Mg Vial IV PUSH 40 mg QAM ARELI Administration Promethazine HCl 12.5 mg 04/27/25 00:21 04/27/25 17:50 Promethazine Hcl 25 Mg/Ml Ampul IV PUSH 12.5 mg Q4H PRN Administration Nausea And Vomiting Ropinirole HCl 1 mg 04/26/25 21:00 04/27/25 20:37 Ropinirole Hcl 1 Mg Tablet PO 1 mg HS ARELI Administration Tramadol HCl 50 mg 04/26/25 20:29 Tramadol Hcl (*Crx) 50 Mg Tablet PO Q6H PRN Pain 4-6 Radiology Results: ITS Impressions Abdomen/Pelvis CT 04/26/25 12:19 IMPRESSION: 1. Thickening of the malik of the body of the stomach. Differential includes incomplete stomach wall distention, gastritis or mass. 2. Short segment focal thickening of the malik of a bowel loop about the anastomotic suture line in bowel in the upper pelvis. Differential includes incomplete bowel wall distention or an inflammatory/infectious process. 3. There are a few small bowel loops with thickened malik possibly secondary to enteritis. 4. Small amount of nonspecific fluid in the pelvis 5. There are a few distended loops of bowel in the pelvis. Differential includes ileus or developing bowel obstruction. Abdomen X-Ray 04/27/25 12:51 IMPRESSION: Nasogastric tube has been placed since the prior study. The nasogastric tube courses below the diaphragm, its tip projects over the lateral aspect of the left mid abdomen. Abdomen Ultrasound 04/27/25 15:28 IMPRESSION: 1. Mild intrahepatic biliary duct dilatation which may be secondary to a previous cholecystectomy. However, other etiologies are possible. If of concern, consider an MRCP for further assessment. 2. Liver cyst 3. Right renal cyst. 4. Pancreas was not adequately visualized for evaluation. Labs Labs: Laboratory Results - last 24 hr 04/27/25 04/28/25 05:00 05:32 WBC 9.8 RBC 3.91 L Hgb 12.2 Hct 38.5 MCV 98.5 MCH 31.2 MCHC 31.7 L RDW 13.7 Plt Count 266 MPV 9.8 Sodium 133 L Potassium 3.5 Chloride 103 Carbon Dioxide 26 Anion Gap 4 BUN 9 Creatinine 0.54 L Estim Creat Clear Calc 77 Estimated GFR > 60 Glucose 85 Calcium 8.0 L Magnesium 1.7 Total Bilirubin 1.0 AST 388 H ALT 468 H Alkaline Phosphatase 225 H Total Protein 6.1 L Albumin 3.5 Lipase 71 Hepatitis A IgM Ab Negative Hep Bs Antigen Negative Hep B Core IgM Ab Negative Hepatitis C Ab Screen Negative
[2025-04-28 08:10] VITALS: PULSE 72; RESP 20
[2025-04-28] MEDS: FLUTICASONE/UMECLIDIN/VILANTER 100-62.5-25 MCG ELLIPTA 1 PUFF INHALATION (08:10)
[2025-04-28] MEDS: PROMETHAZINE HCL 25 MG/ML AMPUL 12.5 MG IV PUSH (09:04)
[2025-04-28] MEDS: PANTOPRAZOLE SODIUM IV 40 MG VIAL IV PUSH (09:24)
[2025-04-28] MEDS: SODIUM CHLORIDE 0.9% IV 1,000 ML 100 ML IV CONT (09:31)
--- NOTE | 2025-04-28 10:16 | P.PNIM_ITS ---
Progress Note: A&P Assessment and Plan (1) Ileus: Code(s): K56.7 - Ileus, unspecified Status: Acute Assessment and Plan: Patient presented with abdominal pain CT abdomen showing thickening of the malik of the body of the stomach. Differential includes incomplete stomach wall distention, gastritis or mass. Short segment focal thickening of the malik of a bowel loop about the anastomotic suture line in bowel in the upper pelvis. Differential includes incomplete bowel wall distention or an inflammatory/infectious process. There are a few small bowel loops with thickened malik possibly secondary to enteritis. Small amount of nonspecific fluid in the pelvis. There are a few distended loops of bowel in the pelvis. Differential includes ileus or developing bowel obstruction. 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 She is well known to [facility] general surgery team. * General Surgery consulted * per surgery can continue with conservative measures High risk surgical candidate per surgery * bowel rest * NPO * IVF * antiemetics * pain management * WBC down trending however * encourage ambulation * abdominal series with Ileus * general surgery to place NG tube for decompression * MRCP showing Persistent small bowel obstruction with transition point on the prior CT the central pelvis at a small bowel anastomosis along the distal ileum (2) SBO (small bowel obstruction): Code(s): K56.609 - Unspecified intestinal obstruction, unspecified as to partial versus complete obstruction Status: Acute Assessment and Plan: See Above #1 (3) Elevated liver enzymes: Code(s): R74.8 - Abnormal levels of other serum enzymes Status: Acute Assessment and Plan: patient's initial liver enzymes within normal limits POA however follow-up liver enzymes significantly trended up: Tbill 2.1/AST 1389/ALT 712/ALKph 181 * GI consulted * patient NPO * MRCP for stone evaluation if present follow with an ERCP * IV fluids * pain management * liver enzymes trending down today after NG tube placement * MRCP showing Persistent small bowel obstruction with transition point on the prior CT the central pelvis at a small bowel anastomosis along the distal ileum (4) MARÍA (iron deficiency anemia): Qualifiers: Iron deficiency anemia type: unspecified iron deficiency Qualified Code(s): D50.9 - Iron deficiency anemia, unspecified Code(s): D50.9 - Iron deficiency anemia, unspecified Status: Chronic Assessment and Plan: Hgb 14.7, at baseline Hx: of MARÍA and B12 deficiency no evidence of acute bleed * Trend H&H * Transfuse PRBC if Hgb <7.0 (5) Hypertension: Qualifiers: Hypertension type: primary hypertension Qualified Code(s): I10 - Essential (primary) hypertension Code(s): I10 - Essential (primary) hypertension Status: Chronic Assessment and Plan: * continue home medications: Amlodipine * monitor per unit protocol * may need to add hydralazine IVP while patient NPO for control (6) Chronic respiratory failure with hypoxia: Code(s): J96.11 - Chronic respiratory failure with hypoxia Status: Chronic Assessment and Plan: * continue patient's home supplemental oxygen at 2 L nasal cannula (7) Obstructive sleep apnea: Code(s): G47.33 - Obstructive sleep apnea (adult) (pediatric) Status: Chronic Assessment and Plan: see above Plan Code status: Full code per patient DVT prophylaxis: SCD Stress ulcer prophylaxis: Protonix PT/OT notes: NA Disposition: patient currently admitted to the medical unit with SBO, continue with conservative treatment at this time. Plan will be to return home when medically stable. Time Spent With Patient Time with patient: 15 - 25 minutes Subjective Date/time seen: 04/28/25 10:16 Interval history: 64-year-old female presented to the emergency department with complaints of epigastric pain and abdominal pain CT abdomen concerning for ileus versus SBO however patient's liver enzymes have have trended up with some concern for bile duct stone GI consulted for further evaluation. 04/28/2025: Patient states the vomiting has stopped since the placement of the NG tube and she has had flatulence but no BM. Continues to have mild to moderate mid ABD pain. Review of Systems Review of Systems: All systems reviewed & are unremarkable except as noted in HPI and below Exam Const: General: comfortable and no acute distress Other: , female, nontoxic appearance HENMT: Face/Nose/Sinus: Normal nares present Mouth: Yes moist mucous membranes Eyes: General: appearance normal, both eyes and all related structures Sclera: sclerae normal Pupils: Equal, round and reactive pupils present EOM: EOMs intact bilaterally Resp: Effort & Inspection: normal respiratory effort Auscultation: clear to auscultation bilaterally Cardio: Rate: regular rate Rhythm: regular rhythm Other: S1-S2 present without murmur, rub, ectopy GI: Other: Abdomen soft, nondistended. Diffuse tenderness, more prominent in the epigastric region. Normoactive to hyperactive bowel sounds in all quadrants. Skin: General skin exam: normal color and no rashes or lesions noted Wounds: no wounds Neuro: Cranial nerves: Yes Equal, round and reactive pupils present Speech: normal speech Motor exam (neuro): 5/5 motor strength present throughout Sensory Exam: normal sensation Other: A&O x4 Extrem: General: normal to inspection Psych: Mental Status: mental status grossly normal Affect: normal affect Other: Good insight and judgment, pleasant Objective Data Vital Signs Vital Signs: Vital Signs - 24 hr 04/27/25 18:00 04/27/25 20:00 04/27/25 20:25 Temperature 97.4 F L 98.1 F Pulse Rate 68 80 80 Respiratory Rate 20 18 18 Blood Pressure 130/73 144/70 H Pulse Oximetry 91 92 92 Oxygen Delivery Nasal Cannula Oxygen Flow Rate 2 04/27/25 23:00 04/28/25 05:45 04/28/25 08:10 Temperature 97 F L Pulse Rate 75 72 Respiratory Rate 18 20 Blood Pressure 108/62 Pulse Oximetry 92 94 Oxygen Delivery Nasal Cannula Oxygen Flow Rate 2 Intake/Output Intake/Output: Intake & Output 04/25/25 04/26/25 04/27/25 04/28/25 23:59 23:59 23:59 23:59 Intake Total 1000 2865 1000 Output Total 300 Balance 1000 2865 700 Meds/Results Medications: Active Medications Generic Name Dose Route Start Last Admin Trade Name Freq PRN Reason Stop Dose Admin Acetaminophen 650 mg 04/26/25 15:37 Acetaminophen 650 Mg Suppository RECTAL Q6H PRN Mild Pain (1-3) or Fever Albuterol 2 puff 04/26/25 20:29 Albuterol Sulfate (*Sp) Aerosol 1 Puff INHALATION Q4HRT PRN Shortness Of Breath Or Wheezin Amlodipine Besylate 5 mg 04/27/25 09:00 04/28/25 09:24 Amlodipine Besylate 5 Mg Tablet PO 5 mg DAILY ARELI Administration Cyclobenzaprine HCl 5 mg 04/26/25 20:29 Cyclobenzaprine Hcl 5 Mg Tablet PO TID PRN MUSCLE SPASMS Dextrose 12.5 gm 04/26/25 15:37 Dextrose 50% 25 Gm/50 Ml Syringe IV PUSH PRN PRN Hypoglycemia Protocol Fluticasone Propionate 2 spray 04/26/25 20:29 Fluticasone Propionate 0.05% Na Spr 16 Gm Btl (*Bkc) NASAL DAILY PRN allergy symptoms Fluticasone/Umeclidinium/Vilanterol 1 puff 04/27/25 08:00 04/28/25 08:10 Fluticasone/Umeclidin/Vilanter 100-62.5-25 Mcg Ellipta INHALATION 1 puff DAILYRT ARELI Administration Glucagon 1 mg 04/26/25 15:37 Glucagon For Inj 1 Mg Vial IM PRN PRN Hypoglycemia Protocol Glucose 15 gm 04/26/25 15:37 Glucose Oral Gel 15 Gm Of Glucse In 37.5 Gm Tube PO PRN PRN Hypoglycemia Protocol Sodium Chloride 1,000 mls @ 100 mls/hr 04/26/25 15:40 04/28/25 09:31 Normal Saline Iv IV CONT 100 mls/hr .Q10H ARELI Administration Dextrose 1,000 mls @ 100 mls/hr 04/26/25 15:37 Dextrose 5% 1,000 Ml IVPB PRN PRN Hypoglycemia Protocol Morphine Sulfate 4 mg 04/26/25 15:37 04/28/25 08:58 Morphine Sulfate (*Crx) 4 Mg/Ml Inj IV PUSH 4 mg Q2H PRN Administration Pain Rated 7-10 Ondansetron HCl 4 mg 04/26/25 15:37 04/27/25 20:43 Ondansetron Inj 4 Mg/2 Ml Vial IV PUSH 4 mg Q4H PRN Administration Nausea Pantoprazole Sodium 40 mg 04/27/25 09:00 04/28/25 09:24 Pantoprazole Sodium Iv 40 Mg Vial IV PUSH 40 mg QAM ARELI Administration Promethazine HCl 12.5 mg 04/27/25 00:21 04/28/25 09:04 Promethazine Hcl 25 Mg/Ml Ampul IV PUSH 12.5 mg Q4H PRN Administration Nausea And Vomiting Ropinirole HCl 1 mg 04/26/25 21:00 04/27/25 20:37 Ropinirole Hcl 1 Mg Tablet PO 1 mg HS ARELI Administration Tramadol HCl 50 mg 04/26/25 20:29 Tramadol Hcl (*Crx) 50 Mg Tablet PO Q6H PRN Pain 4-6 Radiology Results: ITS Impressions Abdomen/Pelvis CT 04/26/25 12:19 IMPRESSION: 1. Thickening of the malik of the body of the stomach. Differential includes incomplete stomach wall distention, gastritis or mass. 2. Short segment focal thickening of the malik of a bowel loop about the anastomotic suture line in bowel in the upper pelvis. Differential includes incomplete bowel wall distention or an inflammatory/infectious process. 3. There are a few small bowel loops with thickened malik possibly secondary to enteritis. 4. Small amount of nonspecific fluid in the pelvis 5. There are a few distended loops of bowel in the pelvis. Differential includes ileus or developing bowel obstruction. Abdomen X-Ray 04/27/25 12:51 IMPRESSION: Nasogastric tube has been placed since the prior study. The nasogastric tube courses below the diaphragm, its tip projects over the lateral aspect of the left mid abdomen. Abdomen Ultrasound 04/27/25 15:28 IMPRESSION: 1. Mild intrahepatic biliary duct dilatation which may be secondary to a previous cholecystectomy. However, other etiologies are possible. If of concern, consider an MRCP for further assessment. 2. Liver cyst 3. Right renal cyst. 4. Pancreas was not adequately visualized for evaluation. Labs Labs: Laboratory Results - last 24 hr 04/27/25 04/28/25 05:00 05:32 WBC 9.8 RBC 3.91 L Hgb 12.2 Hct 38.5 MCV 98.5 MCH 31.2 MCHC 31.7 L RDW 13.7 Plt Count 266 MPV 9.8 Sodium 133 L Potassium 3.5 Chloride 103 Carbon Dioxide 26 Anion Gap 4 BUN 9 Creatinine 0.54 L Estim Creat Clear Calc 77 Estimated GFR > 60 Glucose 85 Calcium 8.0 L Magnesium 1.7 Total Bilirubin 1.0 AST 388 H ALT 468 H Alkaline Phosphatase 225 H Total Protein 6.1 L Albumin 3.5 Lipase 71 Hepatitis A IgM Ab Negative Hep Bs Antigen Negative Hep B Core IgM Ab Negative Hepatitis C Ab Screen Negative Quality VTE Prophylaxis VTE prophylaxis: mechanical ordered -Patient's previous records reviewed on admission -ER notes reviewed in detail on admission -discussed all findings and current treatment plan with patient/Family/POA -Consultations reviewed for recommendations -Patient's disposition for safe discharge discussed with caseworker Dictation performed by [email or web address] direct speech recognition software, therefore precision agriculture specialist variants and typographical errors may occur. Hospitalist MIPS Advance Care Plan I have confirmed that the patient's Advanced Care Plan is present, code status is documented, or surrogate decision maker is listed in patient medical record.: Yes Medication Reconciliation I have utilized all available resources to obtain, update and review the patients current medications (includes all prescriptions, OTC, herbals, cannabis, and nutritional supplements).: Yes The patient is not eligible for med reconciliation; the patient is in a emergent medical situation where delaying treatment would jeopardize the patients health.: No
--- NOTE | 2025-04-28 10:33 | P.PNGS_ITS ---
Progress Note: A&P Assessment and Plan (1) Ileus: Code(s): K56.7 - Ileus, unspecified Status: Acute Assessment and Plan: * Abdominal pain and exam improved since NG placement. Passing flatus, but no BM. She had a large amount of stool throughout the colon on CT and plain films. * Will give a dulcolax suppository * Continue NG tube decompression, bowel rest, and IV fluids * Encourage ambulation (2) Gastroenteritis: Code(s): K52.9 - Noninfective gastroenteritis and colitis, unspecified Status: Acute Assessment and Plan: * Main complaint today is epigastric pain. GI following * Continue IV fluids, PPI, and medical management (3) Elevated liver enzymes: Code(s): R74.8 - Abnormal levels of other serum enzymes Status: Acute Assessment and Plan: * LFTs jumped up yesterday and trending down today. * Hepatitis panel negative. Abdominal US unremarkable. GI ordered MRCP to evaluate for choledocholithiasis (s/p cholecystectomy). (4) H/O major abdominal surgery: Code(s): Z98.890 - Other specified postprocedural states Status: Chronic Assessment and Plan: * To note, with her surgical history, the patient is very high risk for any additional surgery that would likely require extensive adhesiolysis with increased risks of bowel injury, damage to surrounding structures, bleeding, and postoperative complications. (5) Chronic respiratory failure with hypoxia: Code(s): J96.11 - Chronic respiratory failure with hypoxia Status: Chronic (6) COPD (chronic obstructive pulmonary disease): Code(s): J44.9 - Chronic obstructive pulmonary disease, unspecified Status: Chronic (7) Obstructive sleep apnea: Code(s): G47.33 - Obstructive sleep apnea (adult) (pediatric) Status: Chronic (8) Tobacco dependence: Code(s): F17.200 - Nicotine dependence, unspecified, uncomplicated Status: Acute Plan I have discussed the patient's case and plan of care with Dr. Madsen. Subjective Subjective Date/Time Seen: 04/28/25 10:33 Patient reports: no new complaints, feels better (since NG placement), pain is less (now complaining of only epigastric pain), voiding w/o difficulty, flatus and no bowel movement Exam Const: General: comfortable and no acute distress GI: Inspection: other (mildly distended) GI Palp: Yes Soft to palpation, Yes Tenderness to palpation present (GI) (epigastric area), No Guarding due to palpation present (GI) and No Rebound tenderness present Auscultation: Hypoactive bowel sounds present Objective Data Vital Signs Vital Signs: Vital Signs - 24 hr 04/27/25 18:00 04/27/25 20:00 04/27/25 20:25 Temperature 97.4 F L 98.1 F Pulse Rate 68 80 80 Respiratory Rate 20 18 18 Blood Pressure 130/73 144/70 H Pulse Oximetry 91 92 92 Oxygen Delivery Nasal Cannula Oxygen Flow Rate 2 04/27/25 23:00 04/28/25 05:45 04/28/25 08:10 Temperature 97 F L Pulse Rate 75 72 Respiratory Rate 18 20 Blood Pressure 108/62 Pulse Oximetry 92 94 Oxygen Delivery Nasal Cannula Oxygen Flow Rate 2 Intake/Output Intake/Output: Intake & Output 04/25/25 04/26/25 04/27/25 04/28/25 23:59 23:59 23:59 23:59 Intake Total 1000 2865 1000 Output Total 300 Balance 1000 2865 700 Meds/Results Medications: Active Medications Generic Name Dose Route Start Last Admin Trade Name Freq PRN Reason Stop Dose Admin Acetaminophen 650 mg 04/26/25 15:37 Acetaminophen 650 Mg Suppository RECTAL Q6H PRN Mild Pain (1-3) or Fever Albuterol 2 puff 04/26/25 20:29 Albuterol Sulfate (*Sp) Aerosol 1 Puff INHALATION Q4HRT PRN Shortness Of Breath Or Wheezin Amlodipine Besylate 5 mg 04/27/25 09:00 04/28/25 09:24 Amlodipine Besylate 5 Mg Tablet PO 5 mg DAILY ARELI Administration Cyclobenzaprine HCl 5 mg 04/26/25 20:29 Cyclobenzaprine Hcl 5 Mg Tablet PO TID PRN MUSCLE SPASMS Dextrose 12.5 gm 04/26/25 15:37 Dextrose 50% 25 Gm/50 Ml Syringe IV PUSH PRN PRN Hypoglycemia Protocol Fluticasone Propionate 2 spray 04/26/25 20:29 Fluticasone Propionate 0.05% Na Spr 16 Gm Btl (*Bkc) NASAL DAILY PRN allergy symptoms Fluticasone/Umeclidinium/Vilanterol 1 puff 04/27/25 08:00 04/28/25 08:10 Fluticasone/Umeclidin/Vilanter 100-62.5-25 Mcg Ellipta INHALATION 1 puff DAILYRT ARELI Administration Glucagon 1 mg 04/26/25 15:37 Glucagon For Inj 1 Mg Vial IM PRN PRN Hypoglycemia Protocol Glucose 15 gm 04/26/25 15:37 Glucose Oral Gel 15 Gm Of Glucse In 37.5 Gm Tube PO PRN PRN Hypoglycemia Protocol Sodium Chloride 1,000 mls @ 100 mls/hr 04/26/25 15:40 04/28/25 09:31 Normal Saline Iv IV CONT 100 mls/hr .Q10H ARELI Administration Dextrose 1,000 mls @ 100 mls/hr 04/26/25 15:37 Dextrose 5% 1,000 Ml IVPB PRN PRN Hypoglycemia Protocol Morphine Sulfate 4 mg 04/26/25 15:37 04/28/25 08:58 Morphine Sulfate (*Crx) 4 Mg/Ml Inj IV PUSH 4 mg Q2H PRN Administration Pain Rated 7-10 Ondansetron HCl 4 mg 04/26/25 15:37 04/27/25 20:43 Ondansetron Inj 4 Mg/2 Ml Vial IV PUSH 4 mg Q4H PRN Administration Nausea Pantoprazole Sodium 40 mg 04/27/25 09:00 04/28/25 09:24 Pantoprazole Sodium Iv 40 Mg Vial IV PUSH 40 mg QAM ARELI Administration Promethazine HCl 12.5 mg 04/27/25 00:21 04/28/25 09:04 Promethazine Hcl 25 Mg/Ml Ampul IV PUSH 12.5 mg Q4H PRN Administration Nausea And Vomiting Ropinirole HCl 1 mg 04/26/25 21:00 04/27/25 20:37 Ropinirole Hcl 1 Mg Tablet PO 1 mg HS ARELI Administration Tramadol HCl 50 mg 04/26/25 20:29 Tramadol Hcl (*Crx) 50 Mg Tablet PO Q6H PRN Pain 4-6 Radiology Results: ITS Impressions Abdomen/Pelvis CT 04/26/25 12:19 IMPRESSION: 1. Thickening of the malik of the body of the stomach. Differential includes incomplete stomach wall distention, gastritis or mass. 2. Short segment focal thickening of the malik of a bowel loop about the anastomotic suture line in bowel in the upper pelvis. Differential includes incomplete bowel wall distention or an inflammatory/infectious process. 3. There are a few small bowel loops with thickened malik possibly secondary to enteritis. 4. Small amount of nonspecific fluid in the pelvis 5. There are a few distended loops of bowel in the pelvis. Differential includes ileus or developing bowel obstruction. Abdomen X-Ray 04/27/25 12:51 IMPRESSION: Nasogastric tube has been placed since the prior study. The nasogastric tube courses below the diaphragm, its tip projects over the lateral aspect of the left mid abdomen. Abdomen Ultrasound 04/27/25 15:28 IMPRESSION: 1. Mild intrahepatic biliary duct dilatation which may be secondary to a previous cholecystectomy. However, other etiologies are possible. If of concern, consider an MRCP for further assessment. 2. Liver cyst 3. Right renal cyst. 4. Pancreas was not adequately visualized for evaluation. Labs Labs: Laboratory Results - last 24 hr 04/27/25 04/28/25 05:00 05:32 WBC 9.8 RBC 3.91 L Hgb 12.2 Hct 38.5 MCV 98.5 MCH 31.2 MCHC 31.7 L RDW 13.7 Plt Count 266 MPV 9.8 Sodium 133 L Potassium 3.5 Chloride 103 Carbon Dioxide 26 Anion Gap 4 BUN 9 Creatinine 0.54 L Estim Creat Clear Calc 77 Estimated GFR > 60 Glucose 85 Calcium 8.0 L Magnesium 1.7 Total Bilirubin 1.0 AST 388 H ALT 468 H Alkaline Phosphatase 225 H Total Protein 6.1 L Albumin 3.5 Lipase 71 Hepatitis A IgM Ab Negative Hep Bs Antigen Negative Hep B Core IgM Ab Negative Hepatitis C Ab Screen Negative
[2025-04-28 14:00] VITALS: BP 126/68; PULSE 70; RESP 16; TEMP 36.4; O2SAT 92
[2025-04-28] MEDS: BISACODYL 10 MG SUPPOSITORY RECTAL (16:28)
[2025-04-28 20:08] VITALS: BP 122/65; PULSE 71; RESP 20; TEMP 36.4; O2SAT 92
[2025-04-28] MEDS: ONDANSETRON INJ 4 MG/2 ML VIAL IV PUSH (20:18)
[2025-04-29] VITALS (7 sets, daily range): BP systolic 121–149; BP diastolic 61–81; PULSE 73–94; RESP 18–22; TEMP 36.3–37.4; O2SAT 91–95
[2025-04-29] MEDS: SODIUM CHLORIDE 0.9% IV 1,000 ML 100 ML IV CONT (00:11)
[2025-04-29] MEDS: MORPHINE SULFATE (*CRX) 4 MG/ML INJ IV PUSH ×6 (00:13→21:54)
[2025-04-29] MEDS: ONDANSETRON INJ 4 MG/2 ML VIAL IV PUSH ×2 (03:10→21:47)
[2025-04-29 06:03] LABS: Hematocrit 36.5 % (37.0-47.0); Hemoglobin 11.6 g/dL (12.0-15.0); Mean Corpuscular HGB Conc 31.8 g/dl (32-36); Mean Corpuscular Hemoglobin 31.5 pg (26-34); Mean Corpuscular Volume 99.2 fl (80-100); Platelet Count Result 248 k/mm3 (150-375); Red Blood Count 3.68 M/mm3 (4.2-5.4); White Blood Count 8.4 K/mm3 (4.5-10.0)
[2025-04-29 06:56] LABS: Alanine Aminotransferase 293 U/L (6-35); Albumin Level 3.3 g/dL (3.5-5.1); Alkaline Phosphatase 185 U/L (38-126); Anion Gap 7 mmol/L (4-12); Aspartate Amino Transferase 159 U/L (14-36); Bilirubin,Total 0.7 mg/dL (0.2-1.3); Blood Urea Nitrogen 7 mg/dL (7-17); Calcium 7.9 mg/dL (8.4-10.2); Carbon Dioxide 24 mmol/L (22-30); Chloride 104 mmol/L (98-107); Estimated CRCL calculation 86 ml/min; Estimated Glomerular Filt Rate > 60; Glucose 53 mg/dL (65-110); Magnesium 1.7 mg/dL (1.6-2.3); Potassium 3.2 mmol/L (3.4-5.0); Sodium 135 mmol/L (137-145); Total Protein 5.9 g/dL (6.3-8.2)
[2025-04-29] MEDS: DEXTROSE 50% 25 GM/50 ML SYRINGE IV PUSH (07:05)
[2025-04-29] MEDS: FLUTICASONE/UMECLIDIN/VILANTER 100-62.5-25 MCG ELLIPTA 1 PUFF INHALATION (08:40)
[2025-04-29] MEDS: KCL 40 MEQ/D5/0.9% SOD CHL 1,000 ML 125 ML IV CONT ×2 (08:43→19:02)
[2025-04-29] MEDS: PANTOPRAZOLE SODIUM IV 40 MG VIAL IV PUSH (08:44)
[2025-04-29] MEDS: ENOXAPARIN 40 MG/0.4 ML SYRINGE SUB-Q (08:44)
--- NOTE | 2025-04-29 08:52 | P.PNIM_ITS ---
Progress Note: A&P Assessment and Plan (1) Ileus: Code(s): K56.7 - Ileus, unspecified Status: Acute Assessment and Plan: Patient presented with abdominal pain CT abdomen showing thickening of the malik of the body of the stomach. Differential includes incomplete stomach wall distention, gastritis or mass. Short segment focal thickening of the malik of a bowel loop about the anastomotic suture line in bowel in the upper pelvis. Differential includes incomplete bowel wall distention or an inflammatory/infectious process. There are a few small bowel loops with thickened malik possibly secondary to enteritis. Small amount of nonspecific fluid in the pelvis. There are a few distended loops of bowel in the pelvis. Differential includes ileus or developing bowel obstruction. 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 She is well known to [facility]'s general surgery team. MRCP showed Persistent small bowel obstruction with transition point on the prior CT the central pelvis at a small bowel anastomosis along the distal ileum on 04/28/2025 * General Surgery consulted * per surgery can continue with conservative measures High risk surgical candidate per surgery * bowel rest * NPO * IVF * antiemetics * pain management * WBC down trending however * encourage ambulation * abdominal series with Ileus * general surgery to place NG tube for decompression * F/U KUB today showing Nonobstructive bowel gas pattern, small BM and having flatulence can hopefully remove NG tube tomorrow and attempt clear liquids still with a moderate amount of brown/greenish drainage from NG tube (2) SBO (small bowel obstruction): Code(s): K56.609 - Unspecified intestinal obstruction, unspecified as to partial versus complete obstruction Status: Acute Assessment and Plan: See Above #1 (3) Elevated liver enzymes: Code(s): R74.8 - Abnormal levels of other serum enzymes Status: Acute Assessment and Plan: patient's initial liver enzymes within normal limits POA however follow-up liver enzymes significantly trended up: Tbill 2.1/AST 1389/ALT 712/ALKph 181 * GI consulted * patient NPO * MRCP for stone evaluation if present follow with an ERCP * IV fluids * pain management * liver enzymes continue to trend down * MRCP showing Persistent small bowel obstruction with transition point on the prior CT the central pelvis at a small bowel anastomosis along the distal ileum 04/28/2025 (4) Hypoglycemia: Code(s): E16.2 - Hypoglycemia, unspecified Status: Acute Assessment and Plan: patient went hypoglycemic episode today 04/29/2025 likely secondary to patient's NPO status and NG tube * hypoglycemic protocol followed with amp of D5 * will place patient on Accu-Cheks q.6 * initiate dextrose 5 in NS with 20 K mEq (5) MARÍA (iron deficiency anemia): Qualifiers: Iron deficiency anemia type: unspecified iron deficiency Qualified Code(s): D50.9 - Iron deficiency anemia, unspecified Code(s): D50.9 - Iron deficiency anemia, unspecified Status: Chronic Assessment and Plan: Hgb 14.7, at baseline Hx: of MARÍA and B12 deficiency no evidence of acute bleed * Trend H&H * Transfuse PRBC if Hgb <7.0 (6) Hypertension: Qualifiers: Hypertension type: primary hypertension Qualified Code(s): I10 - Essential (primary) hypertension Code(s): I10 - Essential (primary) hypertension Status: Chronic Assessment and Plan: * continue home medications: Amlodipine * monitor per unit protocol * may need to add hydralazine IVP while patient NPO for control (7) Chronic respiratory failure with hypoxia: Code(s): J96.11 - Chronic respiratory failure with hypoxia Status: Chronic Assessment and Plan: * continue patient's home supplemental oxygen at 2 L nasal cannula (8) Obstructive sleep apnea: Code(s): G47.33 - Obstructive sleep apnea (adult) (pediatric) Status: Chronic Assessment and Plan: see above L (9) Hypokalemia: Code(s): E87.6 - Hypokalemia Status: Acute Assessment and Plan: patient's potassium 3.2 secondary to NPO status and NG tube from GI loss * continuous IV fluids with 20 K mEq * trend daily replenish as needed Plan Code status: Full code per patient DVT prophylaxis: SCD Stress ulcer prophylaxis: Protonix PT/OT notes: NA Disposition: patient currently admitted to the medical unit with SBO, continue with conservative treatment at this time. Plan will be to return home when medically stable. Time Spent With Patient Time with patient: 15 - 25 minutes Subjective Date/time seen: 04/29/25 08:52 Interval history: 64-year-old female presented to the emergency department with complaints of epigastric pain and abdominal pain CT abdomen concerning for ileus versus SBO however patient's liver enzymes have have trended up with some concern for bile duct stone GI consulted for further evaluation. 04/29/2025: was called by nursing staff patient with hypoglycemic episode given amp D5 change Accu-Cheks q.6 started continuous dextrose 5/NS. Patient reports gas and small BM overnight feeling better and ABD tenderness improved. Review of Systems Review of Systems: All systems reviewed & are unremarkable except as noted in HPI and below Exam Const: General: comfortable and no acute distress Other: , female, nontoxic appearance HENMT: Face/Nose/Sinus: Normal nares present Mouth: Yes moist mucous membranes Eyes: General: appearance normal, both eyes and all related structures Sclera: sclerae normal Pupils: Equal, round and reactive pupils present EOM: EOMs intact bilaterally Resp: Effort & Inspection: normal respiratory effort Auscultation: clear to auscultation bilaterally Cardio: Rate: regular rate Rhythm: regular rhythm Other: S1-S2 present without murmur, rub, ectopy GI: Other: Abdomen soft, nondistended. Diffuse tenderness, more prominent in the epigastric region. Normoactive to hyperactive bowel sounds in all quadrants. Skin: General skin exam: normal color and no rashes or lesions noted Wounds: no wounds Neuro: Cranial nerves: Yes Equal, round and reactive pupils present Speech: normal speech Motor exam (neuro): 5/5 motor strength present throughout Sensory Exam: normal sensation Other: A&O x4 Extrem: General: normal to inspection Psych: Mental Status: mental status grossly normal Affect: normal affect Other: Good insight and judgment, pleasant Objective Data Vital Signs Vital Signs: Vital Signs - 24 hr 04/28/25 14:00 04/28/25 20:00 04/28/25 20:08 Temperature 97.5 F L 97.5 F L Pulse Rate 70 71 Respiratory Rate 16 20 Blood Pressure 126/68 122/65 Pulse Oximetry 92 92 Oxygen Delivery Room Air Oxygen Flow Rate 04/29/25 04:15 04/29/25 08:40 04/29/25 08:40 Temperature 97.3 F L Pulse Rate 73 75 75 Respiratory Rate 18 20 Blood Pressure 132/81 Pulse Oximetry 95 93 Oxygen Delivery Nasal Cannula Oxygen Flow Rate 2 Intake/Output Intake/Output: Intake & Output 04/26/25 04/27/25 04/28/25 04/29/25 23:59 23:59 23:59 23:59 Intake Total 1000 2865 2000 50 Output Total 850 200 Balance 1000 2865 1150 -150 Meds/Results Medications: Active Medications Generic Name Dose Route Start Last Admin Trade Name Freq PRN Reason Stop Dose Admin Acetaminophen 650 mg 04/26/25 15:37 Acetaminophen 650 Mg Suppository RECTAL Q6H PRN Mild Pain (1-3) or Fever Albuterol 2 puff 04/26/25 20:29 Albuterol Sulfate (*Sp) Aerosol 1 Puff INHALATION Q4HRT PRN Shortness Of Breath Or Wheezin Amlodipine Besylate 5 mg 04/27/25 09:00 04/29/25 08:44 Amlodipine Besylate 5 Mg Tablet PO 5 mg DAILY ARELI Administration Cyclobenzaprine HCl 5 mg 04/26/25 20:29 Cyclobenzaprine Hcl 5 Mg Tablet PO TID PRN MUSCLE SPASMS Dextrose 12.5 gm 04/26/25 15:37 04/29/25 07:05 Dextrose 50% 25 Gm/50 Ml Syringe IV PUSH 12.5 gm PRN PRN Administration Hypoglycemia Protocol Enoxaparin Sodium 40 mg 04/29/25 09:00 04/29/25 08:44 Enoxaparin 40 Mg/0.4 Ml Syringe SUB-Q 40 mg DAILY ARELI Administration Fluticasone Propionate 2 spray 04/26/25 20:29 Fluticasone Propionate 0.05% Na Spr 16 Gm Btl (*Bkc) NASAL DAILY PRN allergy symptoms Fluticasone/Umeclidinium/Vilanterol 1 puff 04/27/25 08:00 04/29/25 08:40 Fluticasone/Umeclidin/Vilanter 100-62.5-25 Mcg Ellipta INHALATION 1 puff DAILYRT ARELI Administration Glucagon 1 mg 04/26/25 15:37 Glucagon For Inj 1 Mg Vial IM PRN PRN Hypoglycemia Protocol Glucose 15 gm 04/26/25 15:37 Glucose Oral Gel 15 Gm Of Glucse In 37.5 Gm Tube PO PRN PRN Hypoglycemia Protocol Dextrose 1,000 mls @ 100 mls/hr 04/26/25 15:37 Dextrose 5% 1,000 Ml IVPB PRN PRN Hypoglycemia Protocol Potassium Chloride/Dextrose/Sod Cl 1,000 mls @ 125 mls/hr 04/29/25 07:15 04/29/25 08:43 Kcl 40 Meq/D5ns IV CONT 125 mls/hr .Q8H ARELI Administration Morphine Sulfate 4 mg 04/26/25 15:37 04/29/25 03:10 Morphine Sulfate (*Crx) 4 Mg/Ml Inj IV PUSH 4 mg Q2H PRN Administration Pain Rated 7-10 Ondansetron HCl 4 mg 04/26/25 15:37 04/29/25 03:10 Ondansetron Inj 4 Mg/2 Ml Vial IV PUSH 4 mg Q4H PRN Administration Nausea Pantoprazole Sodium 40 mg 04/27/25 09:00 04/29/25 08:44 Pantoprazole Sodium Iv 40 Mg Vial IV PUSH 40 mg QAM ARELI Administration Promethazine HCl 12.5 mg 04/27/25 00:21 04/28/25 09:04 Promethazine Hcl 25 Mg/Ml Ampul IV PUSH 12.5 mg Q4H PRN Administration Nausea And Vomiting Ropinirole HCl 1 mg 04/26/25 21:00 04/28/25 20:19 Ropinirole Hcl 1 Mg Tablet PO 1 mg HS ARELI Administration Tramadol HCl 50 mg 04/26/25 20:29 Tramadol Hcl (*Crx) 50 Mg Tablet PO Q6H PRN Pain 4-6 Radiology Results: ITS Impressions Abdomen/Pelvis CT 04/26/25 12:19 IMPRESSION: 1. Thickening of the malik of the body of the stomach. Differential includes incomplete stomach wall distention, gastritis or mass. 2. Short segment focal thickening of the malik of a bowel loop about the anastomotic suture line in bowel in the upper pelvis. Differential includes incomplete bowel wall distention or an inflammatory/infectious process. 3. There are a few small bowel loops with thickened malik possibly secondary to enteritis. 4. Small amount of nonspecific fluid in the pelvis 5. There are a few distended loops of bowel in the pelvis. Differential includes ileus or developing bowel obstruction. Abdomen Ultrasound 04/27/25 15:28 IMPRESSION: 1. Mild intrahepatic biliary duct dilatation which may be secondary to a previous cholecystectomy. However, other etiologies are possible. If of concern, consider an MRCP for further assessment. 2. Liver cyst 3. Right renal cyst. 4. Pancreas was not adequately visualized for evaluation. MRCP 04/28/25 12:58 IMPRESSION: 1. Persistent small bowel obstruction with transition point on the prior CT the central pelvis at a small bowel anastomosis along the distal ileum. 2. Mild intra and extra hepatic biliary ductal dilation without evident obstructing stone or mass likely related to prior cholecystectomy. This is remained stable when compared with CT dated 11/05/2023. 3. Tiny bilateral pleural effusions with dependent consolidation the bilateral lower lobes which could represent atelectasis or pneumonia. Abdomen X-Ray 04/29/25 08:19 Impression: 1: Nonobstructive bowel gas pattern. 2: Bilateral airspace disease, suspicious for pneumonia. 3: Small left pleural effusion. Labs Labs: Laboratory Results - last 24 hr 04/29/25 04/29/25 04:52 04:53 WBC 8.4 RBC 3.68 L Hgb 11.6 L Hct 36.5 L MCV 99.2 MCH 31.5 MCHC 31.8 L RDW 13.2 Plt Count 248 MPV 10.2 Sodium 135 L Potassium 3.2 L Chloride 104 Carbon Dioxide 24 Anion Gap 7 BUN 7 Creatinine 0.48 L Estim Creat Clear Calc 86 Estimated GFR > 60 Glucose 53 L* Calcium 7.9 L Magnesium 1.7 Total Bilirubin 0.7 AST 159 H ALT 293 H Alkaline Phosphatase 185 H Total Protein 5.9 L Albumin 3.3 L Quality VTE Prophylaxis VTE prophylaxis: mechanical ordered -Patient's previous records reviewed on admission -ER notes reviewed in detail on admission -discussed all findings and current treatment plan with patient/Family/POA -Consultations reviewed for recommendations -Patient's disposition for safe discharge discussed with briefcase sewer Dictation performed by [facility] [employer] direct speech recognition software, therefore meal room hand variants and typographical errors may occur. Hospitalist MIPS Advance Care Plan I have confirmed that the patient's Advanced Care Plan is present, code status is documented, or surrogate decision maker is listed in patient medical record.: Yes Medication Reconciliation I have utilized all available resources to obtain, update and review the patients current medications (includes all prescriptions, OTC, herbals, cannabis, and nutritional supplements).: Yes The patient is not eligible for med reconciliation; the patient is in a emergent medical situation where delaying treatment would jeopardize the patients health.: No
--- NOTE | 2025-04-29 11:19 | P.PNGS_ITS ---
Progress Note: A&P Assessment and Plan (1) SBO (small bowel obstruction): Code(s): K56.609 - Unspecified intestinal obstruction, unspecified as to partial versus complete obstruction Status: Acute Assessment and Plan: very poor surgical candidate. MRCP suggested transition point in the pelvis. Nasogastric tubes in excellent position. Continue NG suction, IV fluid hydration, p.r.n. analgesics and close clinical follow-up. Repeat labs again in a.m.. (2) Transaminitis: Code(s): R74.01 - Elevation of levels of liver transaminase levels Status: Acute Assessment and Plan: MRCP does not show any bile duct stones. Patient has had cholecystectomy prev iously. (3) H/O major abdominal surgery: Code(s): Z98.890 - Other specified postprocedural states Status: Chronic Assessment and Plan: Very bad adhesions and extremely difficult adhesiolysis when performed previously. High risk for surgery especially with her inherent pulmonary disease. (4) Chronic respiratory failure with hypoxia: Code(s): J96.11 - Chronic respiratory failure with hypoxia Status: Chronic (5) COPD (chronic obstructive pulmonary disease): Code(s): J44.9 - Chronic obstructive pulmonary disease, unspecified Status: Chronic (6) Obstructive sleep apnea: Code(s): G47.33 - Obstructive sleep apnea (adult) (pediatric) Status: Chronic Subjective Subjective Date/Time Seen: 04/29/25 11:19 Patient reports: pain is less, voiding w/o difficulty, bowel movement ( Small BM) and afebrile Review of Systems Review of Systems: All systems reviewed & are unremarkable except as noted in HPI and below ( HPI) Exam Const: General: comfortable and no acute distress Orientation/consciousness: patient oriented x3 Resp: Effort & Inspection: normal respiratory effort Auscultation: clear to auscultation bilaterally Cardio: Rate: regular rate Rhythm: regular rhythm GI: Inspection: distended, scar ( large indented scar from just above the umb ilicus to the pubis) and no visible herniation GI Palp: Yes Soft to palpation, Yes Tenderness to palpation present (GI), No Guarding due to palpation present (GI) and No Rebound tenderness present Auscultation: abnormal bowel sounds ( faint bowel sounds, definitely hypoactive) Neuro: General: patient oriented x3 and no focal motor deficits Extrem: General: no calf tenderness and no edema Psych: Affect: normal affect Insight: Good insight present (Psych) Judgement: Good judgement present (Psych) Objective Data Vital Signs Vital Signs: Vital Signs - 24 hr 04/28/25 14:00 04/28/25 20:00 04/28/25 20:08 Temperature 36.4 C L 36.4 C L Pulse Rate 70 71 Respiratory Rate 16 20 Blood Pressure 126/68 122/65 Pulse Oximetry 92 92 Oxygen Delivery Room Air Oxygen Flow Rate 04/29/25 04:15 04/29/25 08:00 04/29/25 08:40 Temperature 36.3 C L Pulse Rate 73 75 Respiratory Rate 18 Blood Pressure 132/81 Pulse Oximetry 95 93 93 Oxygen Delivery Room Air Nasal Cannula Oxygen Flow Rate 2 04/29/25 08:40 Temperature Pulse Rate 75 Respiratory Rate 20 Blood Pressure Pulse Oximetry Oxygen Delivery Oxygen Flow Rate Intake/Output Intake/Output: Intake & Output 04/26/25 04/27/25 04/28/25 04/29/25 23:59 23:59 23:59 23:59 Intake Total 1000 2865 2000 50 Output Total 850 200 Balance 1000 2865 1150 -150 Meds/Results Medications: Active Medications Generic Name Dose Route Start Last Admin Trade Name Freq PRN Reason Stop Dose Admin Acetaminophen 650 mg 04/26/25 15:37 Acetaminophen 650 Mg Suppository RECTAL Q6H PRN Mild Pain (1-3) or Fever Albuterol 2 puff 04/26/25 20:29 Albuterol Sulfate (*Sp) Aerosol 1 Puff INHALATION Q4HRT PRN Shortness Of Breath Or Wheezin Amlodipine Besylate 5 mg 04/27/25 09:00 04/29/25 08:44 Amlodipine Besylate 5 Mg Tablet PO 5 mg DAILY ARELI Administration Cyclobenzaprine HCl 5 mg 04/26/25 20:29 Cyclobenzaprine Hcl 5 Mg Tablet PO TID PRN MUSCLE SPASMS Dextrose 12.5 gm 04/26/25 15:37 04/29/25 07:05 Dextrose 50% 25 Gm/50 Ml Syringe IV PUSH 12.5 gm PRN PRN Administration Hypoglycemia Protocol Enoxaparin Sodium 40 mg 04/29/25 09:00 04/29/25 08:44 Enoxaparin 40 Mg/0.4 Ml Syringe SUB-Q 40 mg DAILY ARELI Administration Fluticasone Propionate 2 spray 04/26/25 20:29 Fluticasone Propionate 0.05% Na Spr 16 Gm Btl (*Bkc) NASAL DAILY PRN allergy symptoms Fluticasone/Umeclidinium/Vilanterol 1 puff 04/27/25 08:00 04/29/25 08:40 Fluticasone/Umeclidin/Vilanter 100-62.5-25 Mcg Ellipta INHALATION 1 puff DAILYRT ARELI Administration Glucagon 1 mg 04/26/25 15:37 Glucagon For Inj 1 Mg Vial IM PRN PRN Hypoglycemia Protocol Glucose 15 gm 04/26/25 15:37 Glucose Oral Gel 15 Gm Of Glucse In 37.5 Gm Tube PO PRN PRN Hypoglycemia Protocol Dextrose 1,000 mls @ 100 mls/hr 04/26/25 15:37 Dextrose 5% 1,000 Ml IVPB PRN PRN Hypoglycemia Protocol Potassium Chloride/Dextrose/Sod Cl 1,000 mls @ 125 mls/hr 04/29/25 07:15 04/29/25 08:43 Kcl 40 Meq/D5ns IV CONT 125 mls/hr .Q8H ARELI Administration Morphine Sulfate 4 mg 04/26/25 15:37 04/29/25 08:57 Morphine Sulfate (*Crx) 4 Mg/Ml Inj IV PUSH 4 mg Q2H PRN Administration Pain Rated 7-10 Ondansetron HCl 4 mg 04/26/25 15:37 04/29/25 03:10 Ondansetron Inj 4 Mg/2 Ml Vial IV PUSH 4 mg Q4H PRN Administration Nausea Pantoprazole Sodium 40 mg 04/27/25 09:00 04/29/25 08:44 Pantoprazole Sodium Iv 40 Mg Vial IV PUSH 40 mg QAM ARELI Administration Promethazine HCl 12.5 mg 04/27/25 00:21 04/28/25 09:04 Promethazine Hcl 25 Mg/Ml Ampul IV PUSH 12.5 mg Q4H PRN Administration Nausea And Vomiting Ropinirole HCl 1 mg 04/26/25 21:00 04/28/25 20:19 Ropinirole Hcl 1 Mg Tablet PO 1 mg HS ARELI Administration Tramadol HCl 50 mg 04/26/25 20:29 Tramadol Hcl (*Crx) 50 Mg Tablet PO Q6H PRN Pain 4-6 Radiology Results: ITS Impressions Abdomen/Pelvis CT 04/26/25 12:19 IMPRESSION: 1. Thickening of the malik of the body of the stomach. Differential includes incomplete stomach wall distention, gastritis or mass. 2. Short segment focal thickening of the malik of a bowel loop about the anastomotic suture line in bowel in the upper pelvis. Differential includes incomplete bowel wall distention or an inflammatory/infectious process. 3. There are a few small bowel loops with thickened malik possibly secondary to enteritis. 4. Small amount of nonspecific fluid in the pelvis 5. There are a few distended loops of bowel in the pelvis. Differential includes ileus or developing bowel obstruction. Abdomen Ultrasound 04/27/25 15:28 IMPRESSION: 1. Mild intrahepatic biliary duct dilatation which may be secondary to a previous cholecystectomy. However, other etiologies are possible. If of concern, consider an MRCP for further assessment. 2. Liver cyst 3. Right renal cyst. 4. Pancreas was not adequately visualized for evaluation. MRCP 04/28/25 12:58 IMPRESSION: 1. Persistent small bowel obstruction with transition point on the prior CT the central pelvis at a small bowel anastomosis along the distal ileum. 2. Mild intra and extra hepatic biliary ductal dilation without evident obstructing stone or mass likely related to prior cholecystectomy. This is remained stable when compared with CT dated 11/05/2023. 3. Tiny bilateral pleural effusions with dependent consolidation the bilateral lower lobes which could represent atelectasis or pneumonia. Abdomen X-Ray 04/29/25 08:19 Impression: 1: Nonobstructive bowel gas pattern. 2: Bilateral airspace disease, suspicious for pneumonia. 3: Small left pleural effusion. Labs Labs: Laboratory Results - last 24 hr 04/29/25 04/29/25 04/29/25 04:52 04:53 07:41 WBC 8.4 RBC 3.68 L Hgb 11.6 L Hct 36.5 L MCV 99.2 MCH 31.5 MCHC 31.8 L RDW 13.2 Plt Count 248 MPV 10.2 Sodium 135 L Potassium 3.2 L Chloride 104 Carbon Dioxide 24 Anion Gap 7 BUN 7 Creatinine 0.48 L Estim Creat Clear Calc 86 Estimated GFR > 60 Glucose 53 L* POC Capillary Glucose 109 H Calcium 7.9 L Magnesium 1.7 Total Bilirubin 0.7 AST 159 H ALT 293 H Alkaline Phosphatase 185 H Total Protein 5.9 L Albumin 3.3 L
[2025-04-29] MEDS: ALBUTEROL SULFATE (*SP) AEROSOL 1 PUFF 2 PUFF INHALATION (15:05)
--- NOTE | 2025-04-29 15:16 | WPDGIPROGNO ---
Progress Note: A&P Assessment and Plan (1) SBO (small bowel obstruction): Code(s): K56.609 - Unspecified intestinal obstruction, unspecified as to partial versus complete obstruction Status: Acute Assessment and Plan: medical management per surgery, ngt in place had BM still some abdominal discomfort MRCP reviewed, no stones in bile duct but noted persistent small bowel obstruction with transition point on the prior CT the central pelvis at a small bowel anastomosis along the distal ileum will follow as needed (2) Transaminitis: Code(s): R74.01 - Elevation of levels of liver transaminase levels Status: Acute Assessment and Plan: trending down nicely no stone in bile duct, no need of ercp (3) Diffuse abdominal pain: Code(s): R10.84 - Generalized abdominal pain Status: Acute (4) Chronic respiratory failure with hypoxia: Code(s): J96.11 - Chronic respiratory failure with hypoxia Status: Chronic Subjective Date/time seen: 04/29/25 15:16 Interval history: ngt in place, still some abdominal discomfort but comfortable, had BM yesterday Review of Systems Review of Systems: All systems reviewed & are unremarkable except as noted in HPI and below Exam Const: General: comfortable and no acute distress Orientation/consciousness: patient oriented x3 HENMT: Other: ngt in place Eyes: General: appearance normal, both eyes and all related structures Neck: Neck: supple Resp: Effort & Inspection: normal respiratory effort Auscultation: clear to auscultation bilaterally Cardio: Rate: regular rate Rhythm: regular rhythm GI: Inspection: distended, scar ( large indented scar from just above the umbilicus to the pubis) and no visible herniation GI Palp: Yes Soft to palpation, Yes Tenderness to palpation present (GI) and No Guarding due to palpation present (GI) Auscultation: abnormal bowel sounds ( faint bowel sounds, definitely hypoactive) Skin: General skin exam: normal color Neuro: General: patient oriented x3 and no focal motor deficits Extrem: General: no calf tenderness and no edema Psych: Affect: normal affect Insight: Good insight present (Psych) Judgement: Good judgement present (Psych) Objective Data Vital Signs Vital Signs: Vital Signs - 24 hr 04/28/25 20:00 04/28/25 20:08 04/29/25 04:15 Temperature 97.5 F L 97.3 F L Pulse Rate 71 73 Respiratory Rate 20 18 Blood Pressure 122/65 132/81 Pulse Oximetry 92 95 Oxygen Delivery Room Air Oxygen Flow Rate 04/29/25 08:00 04/29/25 08:40 04/29/25 08:40 Temperature Pulse Rate 75 75 Respiratory Rate 20 Blood Pressure Pulse Oximetry 93 93 Oxygen Delivery Room Air Nasal Cannula Oxygen Flow Rate 2 04/29/25 14:00 04/29/25 15:13 Temperature 99.3 F Pulse Rate 94 Respiratory Rate 22 H Blood Pressure 149/73 H Pulse Oximetry 93 Oxygen Delivery Nasal Cannula Oxygen Flow Rate 2 Intake/Output Intake/Output: Intake & Output 04/26/25 04/27/25 04/28/25 04/29/25 23:59 23:59 23:59 23:59 Intake Total 1000 2865 2000 50 Output Total 850 200 Balance 1000 2865 1150 -150 Meds/Results Medications: Active Medications Generic Name Dose Route Start Last Admin Trade Name Freq PRN Reason Stop Dose Admin Acetaminophen 650 mg 04/26/25 15:37 Acetaminophen 650 Mg Suppository RECTAL Q6H PRN Mild Pain (1-3) or Fever Albuterol 2 puff 04/26/25 20:29 04/29/25 15:05 Albuterol Sulfate (*Sp) Aerosol 1 Puff INHALATION 2 puff Q4HRT PRN Administration Shortness Of Breath Or Wheezin Amlodipine Besylate 5 mg 04/27/25 09:00 04/29/25 08:44 Amlodipine Besylate 5 Mg Tablet PO 5 mg DAILY ARELI Administration Cyclobenzaprine HCl 5 mg 04/26/25 20:29 Cyclobenzaprine Hcl 5 Mg Tablet PO TID PRN MUSCLE SPASMS Dextrose 12.5 gm 04/26/25 15:37 04/29/25 07:05 Dextrose 50% 25 Gm/50 Ml Syringe IV PUSH 12.5 gm PRN PRN Administration Hypoglycemia Protocol Enoxaparin Sodium 40 mg 04/29/25 09:00 04/29/25 08:44 Enoxaparin 40 Mg/0.4 Ml Syringe SUB-Q 40 mg DAILY ARELI Administration Fluticasone Propionate 2 spray 04/26/25 20:29 Fluticasone Propionate 0.05% Na Spr 16 Gm Btl (*Bkc) NASAL DAILY PRN allergy symptoms Fluticasone/Umeclidinium/Vilanterol 1 puff 08/27/25 08:00 04/29/25 08:40 Fluticasone/Umeclidin/Vilanter 100-62.5-25 Mcg Ellipta INHALATION 1 puff DAILYRT ARELI Administration Glucagon 1 mg 04/26/25 15:37 Glucagon For Inj 1 Mg Vial IM PRN PRN Hypoglycemia Protocol Glucose 15 gm 04/26/25 15:37 Glucose Oral Gel 15 Gm Of Glucse In 37.5 Gm Tube PO PRN PRN Hypoglycemia Protocol Dextrose 1,000 mls @ 100 mls/hr 04/26/25 15:37 Dextrose 5% 1,000 Ml IVPB PRN PRN Hypoglycemia Protocol Potassium Chloride/Dextrose/Sod Cl 1,000 mls @ 125 mls/hr 04/29/25 07:15 04/29/25 08:43 Kcl 40 Meq/D5ns IV CONT 125 mls/hr .Q8H ARELI Administration Morphine Sulfate 4 mg 04/26/25 15:37 04/29/25 14:49 Morphine Sulfate (*Crx) 4 Mg/Ml Inj IV PUSH 4 mg Q2H PRN Administration Pain Rated 7-10 Ondansetron HCl 4 mg 04/26/25 15:37 04/29/25 03:10 Ondansetron Inj 4 Mg/2 Ml Vial IV PUSH 4 mg Q4H PRN Administration Nausea Pantoprazole Sodium 40 mg 04/27/25 09:00 04/29/25 08:44 Pantoprazole Sodium Iv 40 Mg Vial IV PUSH 40 mg QAM ARELI Administration Promethazine HCl 12.5 mg 04/27/25 00:21 04/28/25 09:04 Promethazine Hcl 25 Mg/Ml Ampul IV PUSH 12.5 mg Q4H PRN Administration Nausea And Vomiting Ropinirole HCl 1 mg 04/26/25 21:00 04/28/25 20:19 Ropinirole Hcl 1 Mg Tablet PO 1 mg HS ARELI Administration Tramadol HCl 50 mg 04/26/25 20:29 Tramadol Hcl (*Crx) 50 Mg Tablet PO Q6H PRN Pain 4-6 Radiology Results: ITS Impressions Abdomen/Pelvis CT 04/26/25 12:19 IMPRESSION: 1. Thickening of the malik of the body of the stomach. Differential includes incomplete stomach wall distention, gastritis or mass. 2. Short segment focal thickening of the malik of a bowel loop about the anastomotic suture line in bowel in the upper pelvis. Differential includes incomplete bowel wall distention or an inflammatory/infectious process. 3. There are a few small bowel loops with thickened malik possibly secondary to enteritis. 4. Small amount of nonspecific fluid in the pelvis 5. There are a few distended loops of bowel in the pelvis. Differential includes ileus or developing bowel obstruction. Abdomen Ultrasound 04/27/25 15:28 IMPRESSION: 1. Mild intrahepatic biliary duct dilatation which may be secondary to a previous cholecystectomy. However, other etiologies are possible. If of concern, consider an MRCP for further assessment. 2. Liver cyst 3. Right renal cyst. 4. Pancreas was not adequately visualized for evaluation. MRCP 04/28/25 12:58 IMPRESSION: 1. Persistent small bowel obstruction with transition point on the prior CT the central pelvis at a small bowel anastomosis along the distal ileum. 2. Mild intra and extra hepatic biliary ductal dilation without evident obstructing stone or mass likely related to prior cholecystectomy. This is remained stable when compared with CT dated 11/05/2023. 3. Tiny bilateral pleural effusions with dependent consolidation the bilateral lower lobes which could represent atelectasis or pneumonia. Abdomen X-Ray 04/29/25 08:19 Impression: 1: Nonobstructive bowel gas pattern. 2: Bilateral airspace disease, suspicious for pneumonia. 3: Small left pleural effusion. Labs Labs: Laboratory Results - last 24 hr 04/29/25 04/29/25 04/29/25 04:52 04:53 07:41 WBC 8.4 RBC 3.68 L Hgb 11.6 L Hct 36.5 L MCV 99.2 MCH 31.5 MCHC 31.8 L RDW 13.2 Plt Count 248 MPV 10.2 Sodium 135 L Potassium 3.2 L Chloride 104 Carbon Dioxide 24 Anion Gap 7 BUN 7 Creatinine 0.48 L Estim Creat Clear Calc 86 Estimated GFR > 60 Glucose 53 L* POC Capillary Glucose 109 H Calcium 7.9 L Magnesium 1.7 Total Bilirubin 0.7 AST 159 H ALT 293 H Alkaline Phosphatase 185 H Total Protein 5.9 L Albumin 3.3 L 04/29/25 12:06 WBC RBC Hgb Hct MCV MCH MCHC RDW Plt Count MPV Sodium Potassium Chloride Carbon Dioxide Anion Gap BUN Creatinine Estim Creat Clear Calc Estimated GFR Glucose POC Capillary Glucose 89 Calcium Magnesium Total Bilirubin AST ALT Alkaline Phosphatase Total Protein Albumin
[2025-04-30] VITALS (7 sets, daily range): BP systolic 134–143; BP diastolic 67–73; PULSE 64–74; RESP 16–20; TEMP 35.8–36.3; O2SAT 90–94; BMI 29.1
[2025-04-30] MEDS: KCL 40 MEQ/D5/0.9% SOD CHL 1,000 ML 125 ML IV CONT ×4 (04:06→23:25)
[2025-04-30] MEDS: MORPHINE SULFATE (*CRX) 4 MG/ML INJ IV PUSH ×3 (04:07→19:54)
[2025-04-30 05:29] LABS: Hematocrit 33.0 % (37.0-47.0); Hemoglobin 10.8 g/dL (12.0-15.0); Mean Corpuscular HGB Conc 32.7 g/dl (32-36); Mean Corpuscular Hemoglobin 31.3 pg (26-34); Mean Corpuscular Volume 95.7 fl (80-100); Platelet Count Result 251 k/mm3 (150-375); Red Blood Count 3.45 M/mm3 (4.2-5.4); White Blood Count 8.2 K/mm3 (4.5-10.0)
[2025-04-30 05:55] LABS: Alanine Aminotransferase 193 U/L (6-35); Albumin Level 3.0 g/dL (3.5-5.1); Alkaline Phosphatase 144 U/L (38-126); Anion Gap 4 mmol/L (4-12); Aspartate Amino Transferase 75 U/L (14-36); Bilirubin,Total 0.5 mg/dL (0.2-1.3); Blood Urea Nitrogen 3 mg/dL (7-17); Calcium 7.8 mg/dL (8.4-10.2); Carbon Dioxide 27 mmol/L (22-30); Chloride 105 mmol/L (98-107); Estimated CRCL calculation 98 ml/min; Estimated Glomerular Filt Rate > 60; Glucose 137 mg/dL (65-110); Magnesium 1.6 mg/dL (1.6-2.3); Potassium 3.4 mmol/L (3.4-5.0); Sodium 136 mmol/L (137-145); Total Protein 5.5 g/dL (6.3-8.2)
[2025-04-30] MEDS: FLUTICASONE/UMECLIDIN/VILANTER 100-62.5-25 MCG ELLIPTA 1 PUFF INHALATION (07:13)
[2025-04-30] MEDS: ENOXAPARIN 40 MG/0.4 ML SYRINGE SUB-Q (08:16)
[2025-04-30] MEDS: traMADol HCL (*CRX) 50 MG TABLET PO ×2 (08:17→15:08)
[2025-04-30] MEDS: PANTOPRAZOLE SODIUM IV 40 MG VIAL IV PUSH (08:17)
[2025-04-30] MEDS: CYCLOBENZAPRINE HCL 5 MG TABLET PO (13:39)
--- NOTE | 2025-04-30 14:13 | P.PNIM_ITS ---
Progress Note: A&P Assessment and Plan (1) Ileus: Code(s): K56.7 - Ileus, unspecified Status: Acute Assessment and Plan: Patient presented with abdominal pain CT abdomen showing thickening of the malik of the body of the stomach. Differential includes incomplete stomach wall distention, gastritis or mass. Short segment focal thickening of the malik of a bowel loop about the anastomotic suture line in bowel in the upper pelvis. Differential includes incomplete bowel wall distention or an inflammatory/infectious process. There are a few small bowel loops with thickened malik possibly secondary to enteritis. Small amount of nonspecific fluid in the pelvis. There are a few distended loops of bowel in the pelvis. Differential includes ileus or developing bowel obstruction. 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 She is well known to [facility]'s general surgery team. MRCP showed Persistent small bowel obstruction with transition point on the prior CT the central pelvis at a small bowel anastomosis along the distal ileum on 04/28/2025 * General Surgery consulted * per surgery can continue with conservative measures High risk surgical candidate per surgery * bowel rest * NPO * IVF * antiemetics * pain management * WBC down trending however * encourage ambulation * abdominal series * Follow-up KUB from today pending. Continue with NG tube. (2) SBO (small bowel obstruction): Code(s): K56.609 - Unspecified intestinal obstruction, unspecified as to partial versus complete obstruction Status: Acute Assessment and Plan: See Above #1 (3) Elevated liver enzymes: Code(s): R74.8 - Abnormal levels of other serum enzymes Status: Acute Assessment and Plan: patient's initial liver enzymes within normal limits POA however follow-up liver enzymes significantly trended up: Tbill 2.1/AST 1389/ALT 712/ALKph 181 * GI consulted * patient NPO * IV fluids * pain management * liver enzymes continue to trend down * MRCP showing Persistent small bowel obstruction with transition point on the p rior CT the central pelvis at a small bowel anastomosis along the distal ileum 04/28/2025 (4) Hypoglycemia: Code(s): E16.2 - Hypoglycemia, unspecified Status: Acute Assessment and Plan: patient went hypoglycemic episode today 04/29/2025 likely secondary to patient's NPO status and NG tube * hypoglycemic protocol followed with amp of D5 * Accu-Cheks q.6 * initiate dextrose 5 in NS with 20 K mEq (5) MARÍA (iron deficiency anemia): Qualifiers: Iron deficiency anemia type: unspecified iron deficiency Qualified Cod e(s): D50.9 - Iron deficiency anemia, unspecified Code(s): D50.9 - Iron deficiency anemia, unspecified Status: Chronic Assessment and Plan: Hgb 14.7, at baseline Hx: of MARÍA and B12 deficiency no evidence of acute bleed * Trend H&H * Transfuse PRBC if Hgb <7.0 (6) Hypertension: Qualifiers: Hypertension type: primary hypertension Qualified Code(s): I10 - Essential (primary) hypertension Code(s): I10 - Essential (primary) hypertension Status: Chronic Assessment and Plan: * continue home medications: Amlodipine * monitor per unit protocol * may need to add hydralazine IVP while patient NPO for control (7) Chronic respiratory failure with hypoxia: Code(s): J96.11 - Chronic respiratory failure with hypoxia Status: Chronic Assessment and Plan: * continue patient's home supplemental oxygen at 2 L nasal cannula (8) Obstructive sleep apnea: Code(s): G47.33 - Obstructive sleep apnea (adult) (pediatric) Status: Chronic Assessment and Plan: see above (9) Hypokalemia: Code(s): E87.6 - Hypokalemia Status: Acute Assessment and Plan: patient's potassium 3.2 secondary to NPO status and NG tube from GI loss * continuous IV fluids with 20 K mEq * trend daily replenish as needed Plan Code status: Full code per patient DVT prophylaxis: SCD Stress ulcer prophylaxis: Protonix PT/OT notes: NA Disposition: patient currently admitted to the medical unit with SBO, continue with conservative treatment at this time. Plan will be to return home when medically stable. Time Spent With Patient Time with patient: 15 - 25 minutes Subjective Date/time seen: 04/30/25 14:13 Interval history: 64-year-old female presented to the emergency department with complaints of epigastric pain and abdominal pain CT abdomen concerning for ileus versus SBO however patient's liver enzymes have have trended up with some concern for bile duct stone GI consulted for further evaluation. 04/30/2025: Patient continues with NG tube to low intermittent suction with drainage that is not clear. Patient endorses improvement in her abdominal pain. Patient states she had a bowel movement yesterday and is passing gas today. Review of Systems Review of Systems: All systems reviewed & are unremarkable except as noted in HPI and below Exam Const: General: comfortable and no acute distress Other: , female, nontoxic appearance HENMT: Face/Nose/Sinus: Normal nares present Mouth: Yes moist mucous membranes Eyes: General: appearance normal, both eyes and all related structures Sclera: sclerae normal Pupils: Equal, round and reactive pupils present EOM: EOMs intact bilaterally Resp: Effort & Inspection: normal respiratory effort Auscultation: clear to auscultation bilaterally Cardio: Rate: regular rate Rhythm: regular rhythm Other: S1-S2 present without murmur, rub, ectopy GI: GI Palp: Yes Soft to palpation and Yes Tenderness to palpation present (GI) Auscultation: abnormal bowel sounds (hypoactive) Other: Abdomen soft, nondistended. Diffuse tenderness, more prominent in the epigastric region. Normoactive to hyperactive bowel sounds in all quadrants. Skin: General skin exam: normal color and no rashes or lesions noted Wounds: no wounds Neuro: Cranial nerves: Yes Equal, round and reactive pupils present Speech: normal speech Motor exam (neuro): 5/5 motor strength present throughout Sensory Exam: normal sensation Other: A&O x4 Extrem: General: normal to inspection Psych: Mental Status: mental status grossly normal Affect: normal affect Other: Good insight and judgment, pleasant Objective Data Vital Signs Vital Signs: Vital Signs - 24 hr 04/29/25 15:13 04/29/25 20:00 04/29/25 22:00 Temperature 97.4 F L Pulse Rate 77 Respiratory Rate 18 Blood Pressure 121/61 Pulse Oximetry 93 93 91 Oxygen Delivery Nasal Cannula Nasal Cannula Oxygen Flow Rate 2 2 04/30/25 05:00 04/30/25 07:13 04/30/25 07:15 Temperature 96.5 F L Pulse Rate 69 69 68 Respiratory Rate 18 16 16 Blood Pressure 134/67 Pulse Oximetry 92 Oxygen Delivery Oxygen Flow Rate 04/30/25 07:15 04/30/25 08:00 04/30/25 14:00 Temperature 97.4 F L Pulse Rate 74 Respiratory Rate 20 Blood Pressure 143/69 H Pulse Oximetry 94 94 90 Oxygen Delivery Nasal Cannula Nasal Cannula Oxygen Flow Rate 2 2 Intake/Output Intake/Output: Intake & Output 04/27/25 04/28/25 04/29/25 04/30/25 23:59 23:59 23:59 23:59 Intake Total 2865 2000 1050 2295.8 Output Total 850 800 300 Balance 2865 4583 396 0514.8 Meds/Results Medications: Active Medications Generic Name Dose Route Start Last Admin Trade Name Freq PRN Reason Stop Dose Admin Acetaminophen 650 mg 04/26/25 15:37 Acetaminophen 650 Mg Suppository RECTAL Q6H PRN Mild Pain (1-3) or Fever Albuterol 2 puff 04/26/25 20:29 04/29/25 15:05 Albuterol Sulfate (*Sp) Aerosol 1 Puff INHALATION 2 puff Q4HRT PRN Administration Shortness Of Breath Or Wheezin Amlodipine Besylate 5 mg 04/27/25 09:00 04/30/25 08:17 Amlodipine Besylate 5 Mg Tablet PO 5 mg DAILY ARELI Administration Cyclobenzaprine HCl 5 mg 04/26/25 20:29 04/30/25 13:39 Cyclobenzaprine Hcl 5 Mg Tablet PO 5 mg TID PRN Administration MUSCLE SPASMS Dextrose 12.5 gm 04/26/25 15:37 04/29/25 07:05 Dextrose 50% 25 Gm/50 Ml Syringe IV PUSH 12.5 gm PRN PRN Administration Hypoglycemia Protocol Enoxaparin Sodium 40 mg 04/29/25 09:00 04/30/25 08:16 Enoxaparin 40 Mg/0.4 Ml Syringe SUB-Q 40 mg DAILY ARELI Administration Fluticasone Propionate 2 spray 04/26/25 20:29 Fluticasone Propionate 0.05% Na Spr 16 Gm Btl (*Bkc) NASAL DAILY PRN allergy symptoms Fluticasone/Umeclidinium/Vilanterol 1 puff 04/27/25 08:00 04/30/25 07:13 Fluticasone/Umeclidin/Vilanter 100-62.5-25 Mcg Ellipta INHALATION 1 puff DAILYRT ARELI Administration Glucagon 1 mg 04/26/25 15:37 Glucagon For Inj 1 Mg Vial IM PRN PRN Hypoglycemia Protocol Glucose 15 gm 04/26/25 15:37 Glucose Oral Gel 15 Gm Of Glucse In 37.5 Gm Tube PO PRN PRN Hypoglycemia Protocol Dextrose 1,000 mls @ 100 mls/hr 04/26/25 15:37 Dextrose 5% 1,000 Ml IVPB PRN PRN Hypoglycemia Protocol Potassium Chloride/Dextrose/Sod Cl 1,000 mls @ 125 mls/hr 04/29/25 07:15 04/30/25 13:40 Kcl 40 Meq/D5ns IV CONT 125 mls/hr .Q8H ARELI Administration Morphine Sulfate 4 mg 04/26/25 15:37 04/30/25 13:39 Morphine Sulfate (*Crx) 4 Mg/Ml Inj IV PUSH 4 mg Q2H PRN Administration Pain Rated 7-10 Ondansetron HCl 4 mg 04/26/25 15:37 04/29/25 21:47 Ondansetron Inj 4 Mg/2 Ml Vial IV PUSH 4 mg Q4H PRN Administration Nausea Pantoprazole Sodium 40 mg 04/27/25 09:00 04/30/25 08:17 Pantoprazole Sodium Iv 40 Mg Vial IV PUSH 40 mg QAM ARELI Administration Promethazine HCl 12.5 mg 04/27/25 00:21 04/28/25 09:04 Promethazine Hcl 25 Mg/Ml Ampul IV PUSH 12.5 mg Q4H PRN Administration Nausea And Vomiting Ropinirole HCl 1 mg 04/26/25 21:00 04/29/25 20:28 Ropinirole Hcl 1 Mg Tablet PO 1 mg HS ARELI Administration Tramadol HCl 50 mg 04/26/25 20:29 04/30/25 08:17 Tramadol Hcl (*Crx) 50 Mg Tablet PO 50 mg Q6H PRN Administration Pain 4-6 Radiology Results: ITS Impressions Abdomen/Pelvis CT 04/26/25 12:19 IMPRESSION: 1. Thickening of the malik of the body of the stomach. Differential includes incomplete stomach wall distention, gastritis or mass. 2. Short segment focal thickening of the malik of a bowel loop about the anastomotic suture line in bowel in the upper pelvis. Differential includes incomplete bowel wall distention or an inflammatory/infectious process. 3. There are a few small bowel loops with thickened malik possibly secondary to enteritis. 4. Small amount of nonspecific fluid in the pelvis 5. There are a few distended loops of bowel in the pelvis. Differential includes ileus or developing bowel obstruction. Abdomen Ultrasound 04/27/25 15:28 IMPRESSION: 1. Mild intrahepatic biliary duct dilatation which may be secondary to a previous cholecystectomy. However, other etiologies are possible. If of concern, consider an MRCP for further assessment. 2. Liver cyst 3. Right renal cyst. 4. Pancreas was not adequately visualized for evaluation. MRCP 04/28/25 12:58 IMPRESSION: 1. Persistent small bowel obstruction with transition point on the prior CT the central pelvis at a small bowel anastomosis along the distal ileum. 2. Mild intra and extra hepatic biliary ductal dilation without evident obstructing stone or mass likely related to prior cholecystectomy. This is remained stable when compared with CT dated 11/05/2023. 3. Tiny bilateral pleural effusions with dependent consolidation the bilateral lower lobes which could represent atelectasis or pneumonia. Labs Labs: Laboratory Results - last 24 hr 04/29/25 04/30/25 04/30/25 17:09 00:28 04:44 WBC 8.2 RBC 3.45 L Hgb 10.8 L Hct 33.0 L MCV 95.7 MCH 31.3 MCHC 32.7 RDW 13.3 Plt Count 251 MPV 10.0 Sodium 136 L Potassium 3.4 Chloride 105 Carbon Dioxide 27 Anion Gap 4 BUN 3 L Creatinine 0.41 L Estim Creat Clear Calc 98 Estimated GFR > 60 Glucose 137 H POC Capillary Glucose 117 H 143 H Calcium 7.8 L Magnesium 1.6 Total Bilirubin 0.5 AST 75 H ALT 193 H Alkaline Phosphatase 144 H Total Protein 5.5 L Albumin 3.0 L 04/30/25 12:06 WBC RBC Hgb Hct MCV MCH MCHC RDW Plt Count MPV Sodium Potassium Chloride Carbon Dioxide Anion Gap BUN Creatinine Estim Creat Clear Calc Estimated GFR Glucose POC Capillary Glucose 132 H Calcium Magnesium Total Bilirubin AST ALT Alkaline Phosphatase Total Protein Albumin Quality VTE Prophylaxis VTE prophylaxis: mechanical ordered -Patient's previous records reviewed on admission -ER notes reviewed in detail on admission -discussed all findings and current treatment plan with patient/Family/POA -Consultations reviewed for recommendations -Patient's disposition for safe discharge discussed with patient case manager Dictation performed by [employer] direct speech recognition software, therefore mule rider variants and typographical errors may occur. Hospitalist MIPS Advance Care Plan I have confirmed that the patient's Advanced Care Plan is present, code status is documented, or surrogate decision maker is listed in patient medical record.: Yes Medication Reconciliation I have utilized all available resources to obtain, update and review the patients current medications (includes all prescriptions, OTC, herbals, cannabis, and nutritional supplements).: Yes The patient is not eligible for med reconciliation; the patient is in a emergent medical situation where delaying treatment would jeopardize the patients health.: No
--- NOTE | 2025-04-30 14:43 | PM.PNGS ---
Progress Note: A&P Assessment and Plan (1) SBO (small bowel obstruction): Code(s): K56.609 - Unspecified intestinal obstruction, unspecified as to partial versus complete obstruction Status: Acute Assessment and Plan: Nasogastric tube in good position by today's films. Passing flatus but no BM. Patient is a poor surgical candidate. MRCP suggested transition point in the pelvis. Continue NG suction, IV fluid hydration, p.r.n. analgesics and close clinical follow-up. Repeat labs again in a.m.. (2) Transaminitis: Code(s): R74.01 - Elevation of levels of liver transaminase levels Status: Acute Assessment and Plan: MRCP does not show any bile duct stones. Patient has had cholecystectomy previously. Improving (3) H/O major abdominal surgery: Code(s): Z98.890 - Other specified postprocedural states Status: Chronic Assessment and Plan: Very bad adhesions and extremely difficult adhesiolysis when performed previously. High risk for surgery especially with her inherent pulmonary disease. (4) Chronic respiratory failure with hypoxia: Code(s): J96.11 - Chronic respiratory failure with hypoxia Status: Chronic (5) COPD (chronic obstructive pulmonary disease): Code(s): J44.9 - Chronic obstructive pulmonary disease, unspecified Status: Chronic (6) Obstructive sleep apnea: Code(s): G47.33 - Obstructive sleep apnea (adult) (pediatric) Status: Chronic Subjective Subjective Date/Time Seen: 04/30/25 14:43 Patient reports: no new complaints, pain is less, voiding w/o difficulty, flatus, no bowel movement and afebrile Review of Systems Review of Systems: All systems reviewed & are unremarkable except as noted in HPI and below (HPI) Exam Const: General: cooperative, comfortable, alert, awake and average body habitus Orientation/consciousness: patient oriented x3 GI: Inspection: non-distended, scaphoid and scar GI Palp: Yes Soft to palpation, No Tenderness to palpation present (GI) and No Guarding due to palpation present (GI) Auscultation: absent bowel sounds Objective Data Vital Signs Vital Signs: Vital Signs - 24 hr 04/29/25 15:13 04/29/25 20:00 04/29/25 22:00 Temperature 36.3 C L Pulse Rate 77 Respiratory Rate 18 Blood Pressure 121/61 Pulse Oximetry 93 93 91 Oxygen Delivery Nasal Cannula Nasal Cannula Oxygen Flow Rate 2 2 04/30/25 05:00 04/30/25 07:13 04/30/25 07:15 Temperature 35.8 C L Pulse Rate 69 69 68 Respiratory Rate 18 16 16 Blood Pressure 134/67 Pulse Oximetry 92 Oxygen Delivery Oxygen Flow Rate 04/30/25 07:15 04/30/25 08:00 04/30/25 14:00 Temperature 36.3 C L Pulse Rate 74 Respiratory Rate 20 Blood Pressure 143/69 H Pulse Oximetry 94 94 90 Oxygen Delivery Nasal Cannula Nasal Cannula Oxygen Flow Rate 2 2 Intake/Output Intake/Output: Intake & Output 04/27/25 04/28/25 04/29/25 04/30/25 23:59 23:59 23:59 23:59 Intake Total 2865 2000 1050 2295.8 Output Total 850 800 300 Balance 2865 3719 941 7553.8 Meds/Results Medications: Active Medications Generic Name Dose Route Start Last Admin Trade Name Freq PRN Reason Stop Dose Admin Acetaminophen 650 mg 04/26/25 15:37 Acetaminophen 650 Mg Suppository RECTAL Q6H PRN Mild Pain (1-3) or Fever Albuterol 2 puff 04/26/25 20:29 04/29/25 15:05 Albuterol Sulfate (*Sp) Aerosol 1 Puff INHALATION 2 puff Q4HRT PRN Administration Shortness Of Breath Or Wheezin Amlodipine Besylate 5 mg 04/27/25 09:00 04/30/25 08:17 Amlodipine Besylate 5 Mg Tablet PO 5 mg DAILY ARELI Administration Bumetanide 2 mg 04/30/25 14:40 Bumetanide Inj 1 Mg/4 Ml Vial IV PUSH 04/30/25 14:41 ONCE ONE Cyclobenzaprine HCl 5 mg 04/26/25 20:29 04/30/25 13:39 Cyclobenzaprine Hcl 5 Mg Tablet PO 5 mg TID PRN Administration MUSCLE SPASMS Dextrose 12.5 gm 04/26/25 15:37 04/29/25 07:05 Dextrose 50% 25 Gm/50 Ml Syringe IV PUSH 12.5 gm PRN PRN Administration Hypoglycemia Protocol Enoxaparin Sodium 40 mg 04/29/25 09:00 04/30/25 08:16 Enoxaparin 40 Mg/0.4 Ml Syringe SUB-Q 40 mg DAILY ARELI Administration Fluticasone Propionate 2 spray 04/26/25 20:29 Fluticasone Propionate 0.05% Na Spr 16 Gm Btl (*Bkc) NASAL DAILY PRN allergy symptoms Fluticasone/Umeclidinium/Vilanterol 1 puff 04/27/25 08:00 04/30/25 07:13 Fluticasone/Umeclidin/Vilanter 100-62.5-25 Mcg Ellipta INHALATION 1 puff DAILYRT ARELI Administration Glucagon 1 mg 04/26/25 15:37 Glucagon For Inj 1 Mg Vial IM PRN PRN Hypoglycemia Protocol Glucose 15 gm 04/26/25 15:37 Glucose Oral Gel 15 Gm Of Glucse In 37.5 Gm Tube PO PRN PRN Hypoglycemia Protocol Dextrose 1,000 mls @ 100 mls/hr 04/26/25 15:37 Dextrose 5% 1,000 Ml IVPB PRN PRN Hypoglycemia Protocol Potassium Chloride/Dextrose/Sod Cl 1,000 mls @ 125 mls/hr 04/29/25 07:15 04/30/25 13:40 Kcl 40 Meq/D5ns IV CONT 125 mls/hr .Q8H ARELI Administration Amino Acids/Electrolytes/Dextrose 1,000 mls @ 80 mls/hr 04/30/25 15:00 Clinimix E 4.25%/5% Solution IV CONT .[id number] ARELI Protocol Potassium Chloride 40 meq/ 520 mls @ 130 mls/hr 04/30/25 14:41 Sodium Chloride IVPB 04/30/25 18:40 ONCE ONE Morphine Sulfate 4 mg 04/26/25 15:37 04/30/25 13:39 Morphine Sulfate (*Crx) 4 Mg/Ml Inj IV PUSH 4 mg Q2H PRN Administration Pain Rated 7-10 Ondansetron HCl 4 mg 04/26/25 15:37 04/29/25 21:47 Ondansetron Inj 4 Mg/2 Ml Vial IV PUSH 4 mg Q4H PRN Administration Nausea Pantoprazole Sodium 40 mg 04/27/25 09:00 04/30/25 08:17 Pantoprazole Sodium Iv 40 Mg Vial IV PUSH 40 mg QAM ARELI Administration Potassium Chloride 40 meq 04/30/25 14:42 Potassium Chloride 20 Meq Er Tablet PO 04/30/25 14:43 ONCE ONE Promethazine HCl 12.5 mg 04/27/25 00:21 04/28/25 09:04 Promethazine Hcl 25 Mg/Ml Ampul IV PUSH 12.5 mg Q4H PRN Administration Nausea And Vomiting Ropinirole HCl 1 mg 04/26/25 21:00 04/29/25 20:28 Ropinirole Hcl 1 Mg Tablet PO 1 mg HS ARELI Administration Tramadol HCl 50 mg 04/26/25 20:29 04/30/25 08:17 Tramadol Hcl (*Crx) 50 Mg Tablet PO 50 mg Q6H PRN Administration Pain 4-6 Radiology Results: ITS Impressions Abdomen/Pelvis CT 04/26/25 12:19 IMPRESSION: 1. Thickening of the malik of the body of the stomach. Differential includes incomplete stomach wall distention, gastritis or mass. 2. Short segment focal thickening of the malik of a bowel loop about the anastomotic suture line in bowel in the upper pelvis. Differential includes incomplete bowel wall distention or an inflammatory/infectious process. 3. There are a few small bowel loops with thickened malik possibly secondary to enteritis. 4. Small amount of nonspecific fluid in the pelvis 5. There are a few distended loops of bowel in the pelvis. Differential includes ileus or developing bowel obstruction. Abdomen Ultrasound 04/27/25 15:28 IMPRESSION: 1. Mild intrahepatic biliary duct dilatation which may be secondary to a previous cholecystectomy. However, other etiologies are possible. If of concern, consider an MRCP for further assessment. 2. Liver cyst 3. Right renal cyst. 4. Pancreas was not adequately visualized for evaluation. MRCP 04/28/25 12:58 IMPRESSION: 1. Persistent small bowel obstruction with transition point on the prior CT the central pelvis at a small bowel anastomosis along the distal ileum. 2. Mild intra and extra hepatic biliary ductal dilation without evident obstructing stone or mass likely related to prior cholecystectomy. This is remained stable when compared with CT dated 11/05/2023. 3. Tiny bilateral pleural effusions with dependent consolidation the bilateral lower lobes which could represent atelectasis or pneumonia. Labs Labs: Laboratory Results - last 24 hr 04/29/25 04/30/25 04/30/25 17:09 00:28 04:44 WBC 8.2 RBC 3.45 L Hgb 10.8 L Hct 33.0 L MCV 95.7 MCH 31.3 MCHC 32.7 RDW 13.3 Plt Count 251 MPV 10.0 Sodium 136 L Potassium 3.4 Chloride 105 Carbon Dioxide 27 Anion Gap 4 BUN 3 L Creatinine 0.41 L Estim Creat Clear Calc 98 Estimated GFR > 60 Glucose 137 H POC Capillary Glucose 117 H 143 H Calcium 7.8 L Magnesium 1.6 Total Bilirubin 0.5 AST 75 H ALT 193 H Alkaline Phosphatase 144 H Total Protein 5.5 L Albumin 3.0 L 04/30/25 12:06 WBC RBC Hgb Hct MCV MCH MCHC RDW Plt Count MPV Sodium Potassium Chloride Carbon Dioxide Anion Gap BUN Creatinine Estim Creat Clear Calc Estimated GFR Glucose POC Capillary Glucose 132 H Calcium Magnesium Total Bilirubin AST ALT Alkaline Phosphatase Total Protein Albumin
[2025-04-30] MEDS: AMINO ACIDS 4.25%/D5W/LYTES/CA 1,000 ML 80 ML IV CONT (15:07)
[2025-04-30] MEDS: POTASSIUM CHLORIDE INJ 40 MEQ in SODIUM CHLORIDE 0.9% IV 500 ML 130 MEQ IVPB (15:07)
[2025-04-30] MEDS: BUMETANIDE INJ 1 MG/4 ML VIAL 2 MG IV PUSH (15:31)
[2025-05-01] MEDS: CYCLOBENZAPRINE HCL 5 MG TABLET PO ×3 (00:22→17:13)
[2025-05-01] MEDS: traMADol HCL (*CRX) 50 MG TABLET PO ×3 (00:22→17:12)
[2025-05-01] MEDS: MORPHINE SULFATE (*CRX) 4 MG/ML INJ IV PUSH ×3 (04:20→20:13)
[2025-05-01] MEDS: AMINO ACIDS 4.25%/D5W/LYTES/CA 1,000 ML 80 ML IV CONT ×2 (04:20→16:33)
[2025-05-01 04:30] VITALS: BP 144/70; PULSE 73; RESP 17; TEMP 36.2; O2SAT 92
[2025-05-01 05:58] LABS: Hematocrit 37.7 % (37.0-47.0); Hemoglobin 12.4 g/dL (12.0-15.0); Mean Corpuscular HGB Conc 32.9 g/dl (32-36); Mean Corpuscular Hemoglobin 31.5 pg (26-34); Mean Corpuscular Volume 95.7 fl (80-100); Platelet Count Result 291 k/mm3 (150-375); Red Blood Count 3.94 M/mm3 (4.2-5.4); White Blood Count 8.0 K/mm3 (4.5-10.0)
[2025-05-01 06:21] LABS: Alanine Aminotransferase 171 U/L (6-35); Albumin Level 3.6 g/dL (3.5-5.1); Alkaline Phosphatase 144 U/L (38-126); Anion Gap 7 mmol/L (4-12); Aspartate Amino Transferase 56 U/L (14-36); Bilirubin,Total 0.4 mg/dL (0.2-1.3); Blood Urea Nitrogen 8 mg/dL (7-17); Calcium 8.9 mg/dL (8.4-10.2); Carbon Dioxide 26 mmol/L (22-30); Chloride 103 mmol/L (98-107); Estimated CRCL calculation 105 ml/min; Estimated Glomerular Filt Rate > 60; Glucose 137 mg/dL (65-110); Magnesium 1.8 mg/dL (1.6-2.3); Potassium 4.2 mmol/L (3.4-5.0); Sodium 136 mmol/L (137-145); Total Protein 6.5 g/dL (6.3-8.2)
[2025-05-01] MEDS: FLUTICASONE/UMECLIDIN/VILANTER 100-62.5-25 MCG ELLIPTA 1 PUFF INHALATION (07:52)
[2025-05-01 07:54] VITALS: O2SAT 95
[2025-05-01 08:00] VITALS: O2SAT 95
[2025-05-01] MEDS: ENOXAPARIN 40 MG/0.4 ML SYRINGE SUB-Q (08:02)
[2025-05-01] MEDS: PANTOPRAZOLE SODIUM IV 40 MG VIAL IV PUSH (08:03)
[2025-05-01] MEDS: KCL 40 MEQ/D5/0.9% SOD CHL 1,000 ML 125 ML IV CONT ×2 (09:08→14:37)
--- NOTE | 2025-05-01 11:24 | PM.PNGS ---
Progress Note: A&P Assessment and Plan (1) SBO (small bowel obstruction): Code(s): K56.609 - Unspecified intestinal obstruction, unspecified as to partial versus complete obstruction Status: Acute Assessment and Plan: Nasogastric tube in good position by today's films. Patient had large BM this morning and feels better.. Patient is a poor surgical candidate. MRCP suggested transition point in the pelvis. Will go ahead and get a water-soluble contrast small-bowel series today. If contrast passes through with normal transit, remove nasogastric tube and try feeding. If not, will need to continue NG to suction and wait a bit longer. (2) Transaminitis: Code(s): R74.01 - Elevation of levels of liver transaminase levels Status: Acute Assessment and Plan: MRCP does not show any bile duct stones. Patient has had cholecystectomy previously. LFTs continue to improve (3) H/O major abdominal surgery: Code(s): Z98.890 - Other specified postprocedural states Status: Chronic Assessment and Plan: Very bad adhesions and extremely difficult adhesiolysis when performed previously. High risk for surgery especially with her inherent pulmonary disease. (4) Chronic respiratory failure with hypoxia: Code(s): J96.11 - Chronic respiratory failure with hypoxia Status: Chronic (5) COPD (chronic obstructive pulmonary disease): Code(s): J44.9 - Chronic obstructive pulmonary disease, unspecified Status: Chronic (6) Obstructive sleep apnea: Code(s): G47.33 - Obstructive sleep apnea (adult) (pediatric) Status: Chronic Subjective Subjective Date/Time Seen: 05/01/25 11:24 Patient reports: feels better, pain is less, voiding w/o difficulty, bowel movement and afebrile Review of Systems Review of Systems: All systems reviewed & are unremarkable except as noted in HPI and below (HPI) Exam Const: General: comfortable and no acute distress Orientation/consciousness: patient oriented x3 Resp: Effort & Inspection: normal respiratory effort Auscultation: clear to auscultation bilaterally Cardio: Rate: regular rate Rhythm: regular rhythm GI: Inspection: non-distended and scar GI Palp: Yes Soft to palpation, No Tenderness to palpation present (GI) and No Guarding due to palpation present (GI) Auscultation: Hypoactive bowel sounds present Neuro: General: patient oriented x3 and no focal motor deficits Extrem: General: no calf tenderness and no edema Psych: Affect: normal affect Insight: Good insight present (Psych) Judgement: Good judgement present (Psych) Objective Data Vital Signs Vital Signs: Vital Signs - 24 hr 04/30/25 14:00 04/30/25 19:32 04/30/25 20:00 Temperature 36.3 C L 36.1 C L Pulse Rate 74 64 Respiratory Rate 20 17 Blood Pressure 143/69 H 142/73 H Pulse Oximetry 90 92 93 Oxygen Delivery Nasal Cannula Oxygen Flow Rate 2 05/01/25 04:30 05/01/25 07:54 Temperature 36.2 C L Pulse Rate 73 Respiratory Rate 17 Blood Pressure 144/70 H Pulse Oximetry 92 95 Oxygen Delivery Nasal Cannula Oxygen Flow Rate 2 Intake/Output Intake/Output: Intake & Output 04/28/25 04/29/25 04/30/25 05/01/25 23:59 23:59 23:59 23:59 Intake Total 1999 1050 3295.8 2350 Output Total 850 800 300 Balance 8894 106 5299.8 2350 Meds/Results Medications: Active Medications Generic Name Dose Route Start Last Admin Trade Name Freq PRN Reason Stop Dose Admin Acetaminophen 650 mg 04/26/25 15:37 Acetaminophen 650 Mg Suppository RECTAL Q6H PRN Mild Pain (1-3) or Fever Albuterol 2 puff 04/26/25 20:29 04/29/25 15:05 Albuterol Sulfate (*Sp) Aerosol 1 Puff INHALATION 2 puff Q4HRT PRN Administration Shortness Of Breath Or Wheezin Amlodipine Besylate 5 mg 04/27/25 09:00 05/01/25 08:03 Amlodipine Besylate 5 Mg Tablet PO 5 mg DAILY ARELI Administration Cyclobenzaprine HCl 5 mg 04/26/25 20:29 05/01/25 08:02 Cyclobenzaprine Hcl 5 Mg Tablet PO 5 mg TID PRN Administration MUSCLE SPASMS Dextrose 12.5 gm 04/26/25 15:37 04/29/25 07:05 Dextrose 50% 25 Gm/50 Ml Syringe IV PUSH 12.5 gm PRN PRN Administration Hypoglycemia Protocol Enoxaparin Sodium 40 mg 04/29/25 09:00 05/01/25 08:02 Enoxaparin 40 Mg/0.4 Ml Syringe SUB-Q 40 mg DAILY ARELI Administration Fluticasone Propionate 2 spray 04/26/25 20:29 Fluticasone Propionate 0.05% Na Spr 16 Gm Btl (*Bkc) NASAL DAILY PRN allergy symptoms Fluticasone/Umeclidinium/Vilanterol 1 puff 04/27/25 08:00 05/01/25 07:52 Fluticasone/Umeclidin/Vilanter 100-62.5-25 Mcg Ellipta INHALATION 1 puff DAILYRT ARELI Administration Glucagon 1 mg 04/26/25 15:37 Glucagon For Inj 1 Mg Vial IM PRN PRN Hypoglycemia Protocol Glucose 15 gm 04/26/25 15:37 Glucose Oral Gel 15 Gm Of Glucse In 37.5 Gm Tube PO PRN PRN Hypoglycemia Protocol Dextrose 1,000 mls @ 100 mls/hr 04/26/25 15:37 Dextrose 5% 1,000 Ml IVPB PRN PRN Hypoglycemia Protocol Potassium Chloride/Dextrose/Sod Cl 1,000 mls @ 125 mls/hr 04/29/25 07:15 05/01/25 09:08 Kcl 40 Meq/D5ns IV CONT 125 mls/hr .Q8H ARELI Administration Amino Acids/Electrolytes/Dextrose 1,000 mls @ 80 mls/hr 04/30/25 15:00 05/01/25 04:20 Clinimix E 4.25%/5% Solution IV CONT 80 mls/hr .[id number] ARELI Administration Protocol Morphine Sulfate 4 mg 04/26/25 15:37 05/01/25 10:49 Morphine Sulfate (*Crx) 4 Mg/Ml Inj IV PUSH 4 mg Q2H PRN Administration Pain Rated 7-10 Ondansetron HCl 4 mg 04/26/25 15:37 04/29/25 21:47 Ondansetron Inj 4 Mg/2 Ml Vial IV PUSH 4 mg Q4H PRN Administration Nausea Pantoprazole Sodium 40 mg 04/27/25 09:00 05/01/25 08:03 Pantoprazole Sodium Iv 40 Mg Vial IV PUSH 40 mg QAM ARELI Administration Ropinirole HCl 1 mg 04/26/25 21:00 04/30/25 20:00 Ropinirole Hcl 1 Mg Tablet PO 1 mg HS ARELI Administration Tramadol HCl 50 mg 04/26/25 20:29 05/01/25 08:02 Tramadol Hcl (*Crx) 50 Mg Tablet PO 50 mg Q6H PRN Administration Pain 4-6 Radiology Results: ITS Impressions Abdomen/Pelvis CT 04/26/25 12:19 IMPRESSION: 1. Thickening of the malik of the body of the stomach. Differential includes incomplete stomach wall distention, gastritis or mass. 2. Short segment focal thickening of the malik of a bowel loop about the anastomotic suture line in bowel in the upper pelvis. Differential includes incomplete bowel wall distention or an inflammatory/infectious process. 3. There are a few small bowel loops with thickened malik possibly secondary to enteritis. 4. Small amount of nonspecific fluid in the pelvis 5. There are a few distended loops of bowel in the pelvis. Differential includes ileus or developing bowel obstruction. Abdomen Ultrasound 04/27/25 15:28 IMPRESSION: 1. Mild intrahepatic biliary duct dilatation which may be secondary to a previous cholecystectomy. However, other etiologies are possible. If of concern, consider an MRCP for further assessment. 2. Liver cyst 3. Right renal cyst. 4. Pancreas was not adequately visualized for evaluation. MRCP 04/28/25 12:58 IMPRESSION: 1. Persistent small bowel obstruction with transition point on the prior CT the central pelvis at a small bowel anastomosis along the distal ileum. 2. Mild intra and extra hepatic biliary ductal dilation without evident obstructing stone or mass likely related to prior cholecystectomy. This is remained stable when compared with CT dated 11/05/2023. 3. Tiny bilateral pleural effusions with dependent consolidation the bilateral lower lobes which could represent atelectasis or pneumonia. Abdomen X-Ray 05/01/25 10:21 IMPRESSION: 1: NG tube tip in the stomach. Labs Labs: Laboratory Results - last 24 hr 04/30/25 05/01/25 05/01/25 12:06 00:13 04:42 WBC 8.0 RBC 3.94 L Hgb 12.4 Hct 37.7 MCV 95.7 MCH 31.5 MCHC 32.9 RDW 13.3 Plt Count 291 MPV 10.3 Sodium 136 L Potassium 4.2 Chloride 103 Carbon Dioxide 26 Anion Gap 7 BUN 8 D Creatinine 0.38 L Estim Creat Clear Calc 105 Estimated GFR > 60 Glucose 137 H POC Capillary Glucose 132 H 162 H Calcium 8.9 Phosphorus 2.7 Magnesium 1.8 Total Bilirubin 0.4 AST 56 H ALT 171 H Alkaline Phosphatase 144 H Total Protein 6.5 Albumin 3.6 05/01/25 05/01/25 06:09 11:20 WBC RBC Hgb Hct MCV MCH MCHC RDW Plt Count MPV Sodium Potassium Chloride Carbon Dioxide Anion Gap BUN Creatinine Estim Creat Clear Calc Estimated GFR Glucose POC Capillary Glucose 131 H 149 H Calcium Phosphorus Magnesium Total Bilirubin AST ALT Alkaline Phosphatase Total Protein Albumin Imaging Attestation: I personally reviewed and interpreted this imaging study as follows: (PLAIN FILMS OF THE ABDOMEN YESTERDAY AND TODAY) My impression: Normal, no obstruction. Nasogastric tube in good position Radiologist's impression: Same
--- NOTE | 2025-05-01 13:18 | P.PNIM_ITS ---
Progress Note: A&P Assessment and Plan (1) Ileus: Code(s): K56.7 - Ileus, unspecified Status: Acute Assessment and Plan: Patient presented with abdominal pain CT abdomen showing thickening of the malik of the body of the stomach. Differential includes incomplete stomach wall distention, gastritis or mass. Short segment focal thickening of the malik of a bowel loop about the anastomotic suture line in bowel in the upper pelvis. Differential includes incomplete bowel wall distention or an inflammatory/infectious process. There are a few small bowel loops with thickened malik possibly secondary to enteritis. Small amount of nonspecific fluid in the pelvis. There are a few distended loops of bowel in the pelvis. Differential includes ileus or developing bowel obstruction. 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 She is well known to [facility]'s general surgery team. MRCP showed Persistent small bowel obstruction with transition point on the prior CT the central pelvis at a small bowel anastomosis along the distal ileum on 04/28/2025 * General Surgery consulted * per surgery can continue with conservative measures High risk surgical candidate per surgery * bowel rest * NPO * IVF * antiemetics * pain management * encourage ambulation * Bowel series pending, continue with NG tube * Started PPN 04/30/2025 can d/c when tolerating oral intake (2) SBO (small bowel obstruction): Code(s): K56.609 - Unspecified intestinal obstruction, unspecified as to partial versus complete obstruction Status: Acute Assessment and Plan: See Above #1 (3) Elevated liver enzymes: Code(s): R74.8 - Abnormal levels of other serum enzymes Status: Acute Assessment and Plan: patient's initial liver enzymes within normal limits POA however follow-up liver enzymes significantly trended up: Tbill 2.1/AST 1389/ALT 712/ALKph 181 * GI consulted * patient NPO * IV fluids * pain management * liver enzymes continue to trend down * MRCP showing Persistent small bowel obstruction with transition point on the prior CT the central pelvis at a small bowel anastomosis along the distal ileum 04/28/2025 (4) Hypoglycemia: Code(s): E16.2 - Hypoglycemia, unspecified Status: Acute Assessment and Plan: patient went hypoglycemic episode today 04/29/2025 likely secondary to patient's NPO status and NG tube * hypoglycemic protocol followed with amp of D5 * Accu-Cheks q.6 * initiate dextrose 5 in NS with 20 K mEq (5) MARÍA (iron deficiency anemia): Qualifiers: Iron deficiency anemia type: unspecified iron deficiency Qualified Code(s): D50.9 - Iron deficiency anemia, unspecified Code(s): D50.9 - Iron deficiency anemia, unspecified Status: Chronic Assessment and Plan: Hgb 14.7, at baseline Hx: of MARÍA and B12 deficiency no evidence of acute bleed * Trend H&H * Transfuse PRBC if Hgb <7.0 (6) Hypertension: Qualifiers: Hypertension type: primary hypertension Qualified Code(s): I10 - Essential (primary) hypertension Code(s): I10 - Essential (primary) hypertension Status: Chronic Assessment and Plan: * continue home medications: Amlodipine * monitor per unit protocol * may need to add hydralazine IVP while patient NPO for control (7) Chronic respiratory failure with hypoxia: Code(s): J96.11 - Chronic respiratory failure with hypoxia Status: Chronic Assessment and Plan: * continue patient's home supplemental oxygen at 2 L nasal cannula (8) Obstructive sleep apnea: Code(s): G47.33 - Obstructive sleep apnea (adult) (pediatric) Status: Chronic Assessment and Plan: see above (9) Hypokalemia: Code(s): E87.6 - Hypokalemia Status: Resolved Assessment and Plan: patient's potassium 3.2 secondary to NPO status and NG tube from GI loss * continuous IV fluids with 20 K mEq * trend daily replenish as needed Plan Code status: Full code per patient DVT prophylaxis: SCD Stress ulcer prophylaxis: Protonix PT/OT notes: NA Disposition: patient currently admitted to the medical unit with SBO, continue with conservative treatment at this time. Plan will be to return home when medically stable. Time Spent With Patient Time with patient: 15 - 25 minutes Subjective Date/time seen: 05/01/25 13:18 Interval history: 64-year-old female presented to the emergency department with complaints of epigastric pain and abdominal pain CT abdomen concerning for ileus versus SBO however patient's liver enzymes have have trended up with some concern for bile duct stone GI consulted for further evaluation. 05/01/2025: Patient feeling better today minimal ABD tenderness and reported a large BM this am still passing gas. Patient denies any N/V and tolerated the minimal time her NG tube had been clamped. Review of Systems Review of Systems: All systems reviewed & are unremarkable except as noted in HPI and below Exam Const: General: comfortable and no acute distress Other: , female, nontoxic appearance HENMT: Face/Nose/Sinus: Normal nares present Mouth: Yes moist mucous membranes Eyes: General: appearance normal, both eyes and all related structures Sclera: sclerae normal Pupils: Equal, round and reactive pupils present EOM: EOMs intact bilaterally Resp: Effort & Inspection: normal respiratory effort Auscultation: clear to auscultation bilaterally Cardio: Rate: regular rate Rhythm: regular rhythm Other: S1-S2 present without murmur, rub, ectopy GI: Auscultation: abnormal bowel sounds (hypoactive) Other: Abdomen soft, nondistended. Diffuse tenderness, more prominent in the epigastric region. Normoactive to hyperactive bowel sounds in all quadrants. Skin: General skin exam: normal color and no rashes or lesions noted Wounds: no wounds Neuro: Cranial nerves: Yes Equal, round and reactive pupils present Speech: normal speech Motor exam (neuro): 5/5 motor strength present throughout Sensory Exam: normal sensation Other: A&O x4 Extrem: General: normal to inspection Psych: Mental Status: mental status grossly normal Affect: normal affect Other: Good insight and judgment, pleasant Objective Data Vital Signs Vital Signs: Vital Signs - 24 hr 04/30/25 14:00 04/30/25 19:32 04/30/25 20:00 Temperature 97.4 F L 97.0 F L Pulse Rate 74 64 Respiratory Rate 20 17 Blood Pressure 143/69 H 142/73 H Pulse Oximetry 90 92 93 Oxygen Delivery Nasal Cannula Oxygen Flow Rate 2 05/01/25 04:30 05/01/25 07:54 05/01/25 08:00 Temperature 97.2 F L Pulse Rate 73 Respiratory Rate 17 Blood Pressure 144/70 H Pulse Oximetry 92 95 95 Oxygen Delivery Nasal Cannula Room Air Oxygen Flow Rate 2 Intake/Output Intake/Output: Intake & Output 04/28/25 04/29/25 04/30/25 05/01/25 23:59 23:59 23:59 23:59 Intake Total 1999 1050 3295.8 2350 Output Total 801 059 3408 200 Balance 6344 143 0021.8 2150 Meds/Results Medications: Active Medications Generic Name Dose Route Start Last Admin Trade Name Freq PRN Reason Stop Dose Admin Acetaminophen 650 mg 04/26/25 15:37 Acetaminophen 650 Mg Suppository RECTAL Q6H PRN Mild Pain (1-3) or Fever Albuterol 2 puff 04/26/25 20:29 04/29/25 15:05 Albuterol Sulfate (*Sp) Aerosol 1 Puff INHALATION 2 puff Q4HRT PRN Administration Shortness Of Breath Or Wheezin Amlodipine Besylate 5 mg 04/27/25 09:00 05/01/25 08:03 Amlodipine Besylate 5 Mg Tablet PO 5 mg DAILY ARELI Administration Cyclobenzaprine HCl 5 mg 04/26/25 20:29 05/01/25 08:02 Cyclobenzaprine Hcl 5 Mg Tablet PO 5 mg TID PRN Administration MUSCLE SPASMS Dextrose 12.5 gm 04/26/25 15:37 04/29/25 07:05 Dextrose 50% 25 Gm/50 Ml Syringe IV PUSH 12.5 gm PRN PRN Administration Hypoglycemia Protocol Enoxaparin Sodium 40 mg 04/29/25 09:00 05/01/25 08:02 Enoxaparin 40 Mg/0.4 Ml Syringe SUB-Q 40 mg DAILY ARELI Administration Fluticasone Propionate 2 spray 04/26/25 20:29 Fluticasone Propionate 0.05% Na Spr 16 Gm Btl (*Bkc) NASAL DAILY PRN allergy symptoms Fluticasone/Umeclidinium/Vilanterol 1 puff 04/27/25 08:00 05/01/25 07:52 Fluticasone/Umeclidin/Vilanter 100-62.5-25 Mcg Ellipta INHALATION 1 puff DAILYRT ARELI Administration Glucagon 1 mg 04/26/25 15:37 Glucagon For Inj 1 Mg Vial IM PRN PRN Hypoglycemia Protocol Glucose 15 gm 04/26/25 15:37 Glucose Oral Gel 15 Gm Of Glucse In 37.5 Gm Tube PO PRN PRN Hypoglycemia Protocol Dextrose 1,000 mls @ 100 mls/hr 04/26/25 15:37 Dextrose 5% 1,000 Ml IVPB PRN PRN Hypoglycemia Protocol Potassium Chloride/Dextrose/Sod Cl 1,000 mls @ 125 mls/hr 04/29/25 07:15 05/01/25 09:08 Kcl 40 Meq/D5ns IV CONT 125 mls/hr .Q8H ARELI Administration Amino Acids/Electrolytes/Dextrose 1,000 mls @ 80 mls/hr 04/30/25 15:00 05/01/25 04:20 Clinimix E 4.25%/5% Solution IV CONT 80 mls/hr .[id number] ARELI Administration Protocol Morphine Sulfate 4 mg 04/26/25 15:37 05/01/25 10:49 Morphine Sulfate (*Crx) 4 Mg/Ml Inj IV PUSH 4 mg Q2H PRN Administration Pain Rated 7-10 Ondansetron HCl 4 mg 04/26/25 15:37 04/29/25 21:47 Ondansetron Inj 4 Mg/2 Ml Vial IV PUSH 4 mg Q4H PRN Administration Nausea Pantoprazole Sodium 40 mg 04/27/25 09:00 05/01/25 08:03 Pantoprazole Sodium Iv 40 Mg Vial IV PUSH 40 mg QAM ARELI Administration Ropinirole HCl 1 mg 04/26/25 21:00 04/30/25 20:00 Ropinirole Hcl 1 Mg Tablet PO 1 mg HS ARELI Administration Tramadol HCl 50 mg 04/26/25 20:29 05/01/25 08:02 Tramadol Hcl (*Crx) 50 Mg Tablet PO 50 mg Q6H PRN Administration Pain 4-6 Radiology Results: ITS Impressions Abdomen/Pelvis CT 04/26/25 12:19 IMPRESSION: 1. Thickening of the malik of the body of the stomach. Differential includes incomplete stomach wall distention, gastritis or mass. 2. Short segment focal thickening of the malik of a bowel loop about the anastomotic suture line in bowel in the upper pelvis. Differential includes incomplete bowel wall distention or an inflammatory/infectious process. 3. There are a few small bowel loops with thickened malik possibly secondary to enteritis. 4. Small amount of nonspecific fluid in the pelvis 5. There are a few distended loops of bowel in the pelvis. Differential includes ileus or developing bowel obstruction. Abdomen Ultrasound 04/27/25 15:28 IMPRESSION: 1. Mild intrahepatic biliary duct dilatation which may be secondary to a previous cholecystectomy. However, other etiologies are possible. If of concern, consider an MRCP for further assessment. 2. Liver cyst 3. Right renal cyst. 4. Pancreas was not adequately visualized for evaluation. MRCP 04/28/25 12:58 IMPRESSION: 1. Persistent small bowel obstruction with transition point on the prior CT the central pelvis at a small bowel anastomosis along the distal ileum. 2. Mild intra and extra hepatic biliary ductal dilation without evident obstructing stone or mass likely related to prior cholecystectomy. This is remained stable when compared with CT dated 11/05/2023. 3. Tiny bilateral pleural effusions with dependent consolidation the bilateral lower lobes which could represent atelectasis or pneumonia. Abdomen X-Ray 05/01/25 10:21 IMPRESSION: 1: NG tube tip in the stomach. Labs Labs: Laboratory Results - last 24 hr 05/01/25 05/01/25 05/01/25 00:13 04:42 06:09 WBC 8.0 RBC 3.94 L Hgb 12.4 Hct 37.7 MCV 95.7 MCH 31.5 MCHC 32.9 RDW 13.3 Plt Count 291 MPV 10.3 Sodium 136 L Potassium 4.2 Chloride 103 Carbon Dioxide 26 Anion Gap 7 BUN 8 D Creatinine 0.38 L Estim Creat Clear Calc 105 Estimated GFR > 60 Glucose 137 H POC Capillary Glucose 162 H 131 H Calcium 8.9 Phosphorus 2.7 Magnesium 1.8 Total Bilirubin 0.4 AST 56 H ALT 171 H Alkaline Phosphatase 144 H Total Protein 6.5 Albumin 3.6 05/01/25 11:20 WBC RBC Hgb Hct MCV MCH MCHC RDW Plt Count MPV Sodium Potassium Chloride Carbon Dioxide Anion Gap BUN Creatinine Estim Creat Clear Calc Estimated GFR Glucose POC Capillary Glucose 149 H Calcium Phosphorus Magnesium Total Bilirubin AST ALT Alkaline Phosphatase Total Protein Albumin Quality VTE Prophylaxis VTE prophylaxis: mechanical ordered -Patient's previous records reviewed on admission -ER notes reviewed in detail on admission -discussed all findings and current treatment plan with patient/Family/POA -Consultations reviewed for recommendations -Patient's disposition for safe discharge discussed with disease case manager rn Dictation performed by [employer] direct speech recognition software, therefore siene maker variants and typographical errors may occur. Hospitalist MIPS Advance Care Plan I have confirmed that the patient's Advanced Care Plan is present, code status is documented, or surrogate decision maker is listed in patient medical record.: Yes Medication Reconciliation I have utilized all available resources to obtain, update and review the jason ents current medications (includes all prescriptions, OTC, herbals, cannabis, and nutritional supplements).: Yes The patient is not eligible for med reconciliation; the patient is in a emergent medical situation where delaying treatment would jeopardize the patients health.: No
[2025-05-01 14:00] VITALS: BP 119/59; PULSE 85; RESP 22; TEMP 36.3; O2SAT 92
[2025-05-01 16:04] LABS: Triglycerides 118 mg/dL (<150)
[2025-05-01 19:40] VITALS: BP 125/77; PULSE 78; RESP 19; TEMP 36.6; O2SAT 94
[2025-05-02] MEDS: KCL 40 MEQ/D5/0.9% SOD CHL 1,000 ML 80 ML IV CONT (01:21)
[2025-05-02] MEDS: CYCLOBENZAPRINE HCL 5 MG TABLET PO (05:01)
[2025-05-02] MEDS: traMADol HCL (*CRX) 50 MG TABLET PO (05:01)
[2025-05-02 05:24] LABS: Hematocrit 37.7 % (37.0-47.0); Hemoglobin 12.1 g/dL (12.0-15.0); Mean Corpuscular HGB Conc 32.1 g/dl (32-36); Mean Corpuscular Hemoglobin 31.3 pg (26-34); Mean Corpuscular Volume 97.4 fl (80-100); Platelet Count Result 277 k/mm3 (150-375); Red Blood Count 3.87 M/mm3 (4.2-5.4); White Blood Count 8.6 K/mm3 (4.5-10.0)
[2025-05-02 05:39] LABS: INR 1.0; Partial Thromboplastin Time 29.3 Seconds (22.3-36.8); Prothrombin Time 13.4 Seconds (11.1-14.7)
[2025-05-02 05:42] VITALS: BP 123/60; PULSE 73; RESP 17; TEMP 36.6; O2SAT 94
[2025-05-02 05:46] LABS: Alanine Aminotransferase 119 U/L (6-35); Albumin Level 3.2 g/dL (3.5-5.1); Alkaline Phosphatase 124 U/L (38-126); Anion Gap 4 mmol/L (4-12); Aspartate Amino Transferase 41 U/L (14-36); Bilirubin,Total 0.4 mg/dL (0.2-1.3); Blood Urea Nitrogen 12 mg/dL (7-17); Calcium 8.7 mg/dL (8.4-10.2); Carbon Dioxide 26 mmol/L (22-30); Chloride 104 mmol/L (98-107); Estimated CRCL calculation 100 ml/min; Estimated Glomerular Filt Rate > 60; Glucose 109 mg/dL (65-110); Magnesium 1.8 mg/dL (1.6-2.3); Potassium 4.4 mmol/L (3.4-5.0); Sodium 134 mmol/L (137-145)
[2025-05-02 05:54] LABS: Transferrin 178 mg/dL (206-381)
[2025-05-02 06:01] LABS: Total Protein 6.1 g/dL (6.3-8.2)
[2025-05-02] MEDS: FLUTICASONE/UMECLIDIN/VILANTER 100-62.5-25 MCG ELLIPTA 1 PUFF INHALATION (07:50)
[2025-05-02 07:53] VITALS: O2SAT 90
[2025-05-02] MEDS: ENOXAPARIN 40 MG/0.4 ML SYRINGE SUB-Q (09:50)
[2025-05-02] MEDS: PANTOPRAZOLE SODIUM IV 40 MG VIAL IV PUSH (09:50)
--- NOTE | 2025-05-02 11:36 | P.PNIM_ITS ---
Progress Note: A&P Assessment and Plan (1) Ileus: Code(s): K56.7 - Ileus, unspecified Status: Acute Assessment and Plan: Patient presented with abdominal pain CT abdomen showing thickening of the malik of the body of the stomach. Differential includes incomplete stomach wall distention, gastritis or mass. Short segment focal thickening of the malik of a bowel loop about the anastomotic suture line in bowel in the upper pelvis. Differential includes incomplete bowel wall distention or an inflammatory/infectious process. There are a few small bowel loops with thickened malik possibly secondary to enteritis. Small amount of nonspecific fluid in the pelvis. There are a few distended loops of bowel in the pelvis. Differential includes ileus or developing bowel obstruction. 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 She is well known to [facility] general surgery team. MRCP showed Persistent small bowel obstruction with transition point on the prior CT the central pelvis at a small bowel anastomosis along the distal ileum on 04/28/2025 * General Surgery consulted * per surgery can continue with conservative measures High risk surgical candidate per surgery * bowel rest * advanced to clear liquid * IVF * antiemetics * pain management * encourage ambulation * Bowel series no further SBO * Removed NG tube * Follow-up KUB pending (2) SBO (small bowel obstruction): Code(s): K56.609 - Unspecified intestinal obstruction, unspecified as to partial versus complete obstruction Status: Acute Assessment and Plan: See Above #1 (3) Elevated liver enzymes: Code(s): R74.8 - Abnormal levels of other serum enzymes Status: Acute Assessment and Plan: patient's initial liver enzymes within normal limits POA however follow-up liver enzymes significantly trended up: Tbill 2.1/AST 1389/ALT 712/ALKph 181 * GI consulted and signed off * IV fluids * pain management * liver enzymes continue to trend down * MRCP showing Persistent small bowel obstruction with transition point on the prior CT the central pelvis at a small bowel anastomosis along the distal ileum 04/28/2025 (4) MARÍA (iron deficiency anemia): Qualifiers: Iron deficiency anemia type: unspecified iron deficiency Qualified Code(s): D50.9 - Iron deficiency anemia, unspecified Code(s): D50.9 - Iron deficiency anemia, unspecified Status: Chronic Assessment and Plan: Hgb 14.7, at baseline Hx: of MARÍA and B12 deficiency no evidence of acute bleed * Trend H&H * Transfuse PRBC if Hgb <7.0 (5) Hypertension: Qualifiers: Hypertension type: primary hypertension Qualified Code(s): I10 - Essential (primary) hypertension Code(s): I10 - Essential (primary) hypertension Status: Chronic Assessment and Plan: * continue home medications: Amlodipine * monitor per unit protocol * may need to add hydralazine IVP while patient NPO for control (6) Chronic respiratory failure with hypoxia: Code(s): J96.11 - Chronic respiratory failure with hypoxia Status: Chronic Assessment and Plan: * continue patient's home supplemental oxygen at 2 L nasal cannula (7) Obstructive sleep apnea: Code(s): G47.33 - Obstructive sleep apnea (adult) (pediatric) Status: Chronic Assessment and Plan: see above (8) Hypokalemia: Code(s): E87.6 - Hypokalemia Status: Resolved Assessment and Plan: patient's potassium 3.2 secondary to NPO status and NG tube from GI loss * continuous IV fluids with 20 K mEq * trend daily replenish as needed (9) Hypoglycemia: Code(s): E16.2 - Hypoglycemia, unspecified Status: Resolved Assessment and Plan: patient went hypoglycemic episode today 04/29/2025 likely secondary to patient's NPO status and NG tube * hypoglycemic protocol followed with amp of D5 * Accu-Cheks q.6 * initiate dextrose 5 in NS with 20 K mEq RESOLVED Plan Code status: Full code per patient DVT prophylaxis: SCD Stress ulcer prophylaxis: Protonix PT/OT notes: NA Disposition: patient currently admitted to the medical unit with SBO, continue with conservative treatment at this time. Plan will be to return home when medically stable. Time Spent With Patient Time with patient: 15 - 25 minutes Subjective Date/time seen: 05/02/25 11:36 Interval history: 64-year-old female presented to the emergency department with complaints of epigastric pain and abdominal pain CT abdomen concerning for ileus versus SBO however patient's liver enzymes have have trended up with some concern for bile duct stone GI consulted for further evaluation. 05/02/2025: Patient doing better today was able to remove NG tube and is tolerating clear liquid diet. Denies any N/V, no BM today but continues to have flatulence. Review of Systems Review of Systems: All systems reviewed & are unremarkable except as noted in HPI and below Exam Const: General: comfortable and no acute distress Other: , female, nontoxic appearance HENMT: Face/Nose/Sinus: Normal nares present Mouth: Yes moist mucous membranes Eyes: General: appearance normal, both eyes and all related structures Sclera: sclerae normal Pupils: Equal, round and reactive pupils present EOM: EOMs intact bilaterally Resp: Effort & Inspection: normal respiratory effort Auscultation: clear to auscultation bilaterally Cardio: Rate: regular rate Rhythm: regular rhythm Other: S1-S2 present without murmur, rub, ectopy GI: Auscultation: abnormal bowel sounds (hypoactive) Other: Abdomen soft, nondistended. Diffuse tenderness, more prominent in the epigastric region. Normoactive to hyperactive bowel sounds in all quadrants. Skin: General skin exam: normal color and no rashes or lesions noted Wounds: no wounds Neuro: Cranial nerves: Yes Equal, round and reactive pupils present Speech: normal speech Motor exam (neuro): 5/5 motor strength present throughout Sensory Exam: normal sensation Other: A&O x4 Extrem: General: normal to inspection Psych: Mental Status: mental status grossly normal Affect: normal affect Other: Good insight and judgment, pleasant Objective Data Vital Signs Vital Signs: Vital Signs - 24 hr 05/01/25 14:00 05/01/25 19:40 05/01/25 20:20 Temperature 97.3 F L 97.9 F Pulse Rate 85 78 Respiratory Rate 22 H 19 Blood Pressure 119/59 L 125/77 Pulse Oximetry 92 94 Oxygen Delivery Room Air 05/02/25 05:42 05/02/25 07:53 Temperature 97.9 F Pulse Rate 73 Respiratory Rate 17 Blood Pressure 123/60 Pulse Oximetry 94 90 Oxygen Delivery Room Air Intake/Output Intake/Output: Intake & Output 04/29/25 04/30/25 05/01/25 05/02/25 23:59 23:59 23:59 23:59 Intake Total 1050 3295.8 4631.9 1225.4 Output Total 800 1000 550 Balance 250 2295.8 4081.9 1225.4 Meds/Results Medications: Active Medications Generic Name Dose Route Start Last Admin Trade Name Freq PRN Reason Stop Dose Admin Acetaminophen 650 mg 04/26/25 15:37 Acetaminophen 650 Mg Suppository RECTAL Q6H PRN Mild Pain (1-3) or Fever Albuterol 2 puff 04/26/25 20:29 04/29/25 15:05 Albuterol Sulfate (*Sp) Aerosol 1 Puff INHALATION 2 puff Q4HRT PRN Administration Shortness Of Breath Or Wheezin Amlodipine Besylate 5 mg 04/27/25 09:00 05/02/25 09:51 Amlodipine Besylate 5 Mg Tablet PO 5 mg DAILY ARELI Administration Cyclobenzaprine HCl 5 mg 04/26/25 20:29 05/02/25 05:01 Cyclobenzaprine Hcl 5 Mg Tablet PO 5 mg TID PRN Administration MUSCLE SPASMS Dextrose 12.5 gm 04/26/25 15:37 04/29/25 07:05 Dextrose 50% 25 Gm/50 Ml Syringe IV PUSH 12.5 gm PRN PRN Administration Hypoglycemia Protocol Enoxaparin Sodium 40 mg 04/29/25 09:00 05/02/25 09:50 Enoxaparin 40 Mg/0.4 Ml Syringe SUB-Q 40 mg DAILY ARELI Administration Fluticasone Propionate 2 spray 04/26/25 20:29 Fluticasone Propionate 0.05% Na Spr 16 Gm Btl (*Bkc) NASAL DAILY PRN allergy symptoms Fluticasone/Umeclidinium/Vilanterol 1 puff 04/27/25 08:00 05/02/25 07:50 Fluticasone/Umeclidin/Vilanter 100-62.5-25 Mcg Ellipta INHALATION 1 puff DAILYRT ARELI Administration Glucagon 1 mg 04/26/25 15:37 Glucagon For Inj 1 Mg Vial IM PRN PRN Hypoglycemia Protocol Glucose 15 gm 04/26/25 15:37 Glucose Oral Gel 15 Gm Of Glucse In 37.5 Gm Tube PO PRN PRN Hypoglycemia Protocol Dextrose 1,000 mls @ 100 mls/hr 04/26/25 15:37 Dextrose 5% 1,000 Ml IVPB PRN PRN Hypoglycemia Protocol Morphine Sulfate 4 mg 04/26/25 15:37 05/01/25 20:13 Morphine Sulfate (*Crx) 4 Mg/Ml Inj IV PUSH 4 mg Q2H PRN Administration Pain Rated 7-10 Ondansetron HCl 4 mg 04/26/25 15:37 04/29/25 21:47 Ondansetron Inj 4 Mg/2 Ml Vial IV PUSH 4 mg Q4H PRN Administration Nausea Pantoprazole Sodium 40 mg 04/27/25 09:00 05/02/25 09:50 Pantoprazole Sodium Iv 40 Mg Vial IV PUSH 40 mg QAM ARELI Administration Ropinirole HCl 1 mg 04/26/25 21:00 05/01/25 20:13 Ropinirole Hcl 1 Mg Tablet PO 1 mg HS ARELI Administration Tramadol HCl 50 mg 04/26/25 20:29 05/02/25 05:01 Tramadol Hcl (*Crx) 50 Mg Tablet PO 50 mg Q6H PRN Administration Pain 4-6 Radiology Results: ITS Impressions Abdomen/Pelvis CT 04/26/25 12:19 IMPRESSION: 1. Thickening of the malik of the body of the stomach. Differential includes incomplete stomach wall distention, gastritis or mass. 2. Short segment focal thickening of the malik of a bowel loop about the anastomotic suture line in bowel in the upper pelvis. Differential includes incomplete bowel wall distention or an inflammatory/infectious process. 3. There are a few small bowel loops with thickened malik possibly secondary to enteritis. 4. Small amount of nonspecific fluid in the pelvis 5. There are a few distended loops of bowel in the pelvis. Differential includes ileus or developing bowel obstruction. Abdomen Ultrasound 04/27/25 15:28 IMPRESSION: 1. Mild intrahepatic biliary duct dilatation which may be secondary to a previous cholecystectomy. However, other etiologies are possible. If of concern, consider an MRCP for further assessment. 2. Liver cyst 3. Right renal cyst. 4. Pancreas was not adequately visualized for evaluation. MRCP 04/28/25 12:58 IMPRESSION: 1. Persistent small bowel obstruction with transition point on the prior CT the central pelvis at a small bowel anastomosis along the distal ileum. 2. Mild intra and extra hepatic biliary ductal dilation without evident obstructing stone or mass likely related to prior cholecystectomy. This is remained stable when compared with CT dated 11/05/2023. 3. Tiny bilateral pleural effusions with dependent consolidation the bilateral lower lobes which could represent atelectasis or pneumonia. Small Bowel X-Ray 05/01/25 15:31 IMPRESSION: 1. Normal small bowel follow-through with small bowel transit time of 45-60 minutes. Labs Labs: Laboratory Results - last 24 hr 05/01/25 05/01/25 05/02/25 15:43 17:37 04:37 WBC 8.6 RBC 3.87 L Hgb 12.1 Hct 37.7 MCV 97.4 MCH 31.3 MCHC 32.1 RDW 13.6 Plt Count 277 MPV 10.0 PT 13.4 INR 1.0 APTT 29.3 Sodium 134 L Potassium 4.4 Chloride 104 Carbon Dioxide 26 Anion Gap 4 BUN 12 Creatinine 0.40 L Estim Creat Clear Calc 100 Estimated GFR > 60 Glucose 109 POC Capillary Glucose 143 H Calcium 8.7 Phosphorus 4.1 Magnesium 1.8 Transferrin 178 L Total Bilirubin 0.4 AST 41 H ALT 119 H Alkaline Phosphatase 124 Total Protein 6.1 L Albumin 3.2 L Triglycerides 118 05/02/25 05/02/25 07:30 11:27 WBC RBC Hgb Hct MCV MCH MCHC RDW Plt Count MPV PT INR APTT Sodium Potassium Chloride Carbon Dioxide Anion Gap BUN Creatinine Estim Creat Clear Calc Estimated GFR Glucose POC Capillary Glucose 107 H 90 Calcium Phosphorus Magnesium Transferrin Total Bilirubin AST ALT Alkaline Phosphatase Total Protein Albumin Triglycerides Quality VTE Prophylaxis VTE prophylaxis: mechanical ordered -Patient's previous records reviewed on admission -ER notes reviewed in detail on admission -discussed all findings and current treatment plan with patient/Family/POA -Consultations reviewed for recommendations -Patient's disposition for safe discharge discussed with rn case manager hospice Dictation performed by [employer] direct speech recognition software, therefore kelp gatherer variants and typographical errors may occur. Hospitalist MIPS Advance Care Plan I have confirmed that the patient's Advanced Care Plan is present, code status is documented, or surrogate decision maker is listed in patient medical record.: Yes Medication Reconciliation I have utilized all available resources to obtain, update and review the patients current medications (includes all prescriptions, OTC, herbals, cannabis, and nutritional supplements).: Yes The patient is not eligible for med reconciliation; the patient is in a emergent medical situation where delaying treatment would jeopardize the patients he alth.: No
--- NOTE | 2025-05-02 13:35 | P.PNGS_ITS ---
Progress Note: A&P Assessment and Plan (1) SBO (small bowel obstruction): Code(s): K56.609 - Unspecified intestinal obstruction, unspecified as to partial versus complete obstruction Status: Acute Assessment and Plan: resolved by small bowel series yesterday. Tolerating full liquids well today. Will advance to low-fiber diet. She is still on some oxygen and has a markedly positive SENAIT over the course of her stay. I will go ahead and give her a dose of Bumex to try for some diuresis. Hopefully, home tomorrow Subjective Subjective Date/Time Seen: 05/02/25 13:35 Patient reports: no new complaints, feels better, bowel movement and afebrile Review of Systems Review of Systems: All systems reviewed & are unremarkable except as noted in HPI and below ( HPI) Exam Const: General: comfortable, alert and awake; No in distress Resp: Effort & Inspection: other ( somewhat gurgling breaths and speech) Auscultation: crackles and wheezes GI: Inspection: non-distended and scar GI Palp: Yes Soft to palpation and No Tenderness to palpation present (GI) Auscultation: normal bowel sounds Objective Data Vital Signs Vital Signs: Vital Signs - 24 hr 05/01/25 14:00 05/01/25 19:40 05/01/25 20:20 Temperature 36.3 C L 36.6 C Pulse Rate 85 78 Respiratory Rate 22 H 19 Blood Pressure 119/59 L 125/77 Pulse Oximetry 92 94 Oxygen Delivery Room Air 05/02/25 05:42 05/02/25 07:53 Temperature 36.6 C Pulse Rate 73 Respiratory Rate 17 Blood Pressure 123/60 Pulse Oximetry 94 90 Oxygen Delivery Room Air Intake/Output Intake/Output: Intake & Output 04/29/25 04/30/25 05/01/25 05/02/25 23:59 23:59 23:59 23:59 Intake Total 1050 3295.8 4631.9 1225.4 Output Total 800 1000 550 Balance 250 2295.8 4081.9 1225.4 Meds/Results Medications: Active Medications Generic Name Dose Route Start Last Admin Trade Name Freq PRN Reason Stop Dose Admin Acetaminophen 650 mg 04/26/25 15:37 Acetaminophen 650 Mg Suppository RECTAL Q6H PRN Mild Pain (1-3) or Fever Albuterol 2 puff 04/26/25 20:29 04/29/25 15:05 Albuterol Sulfate (*Sp) Aerosol 1 Puff INHALATION 2 puff Q4HRT PRN Administration Shortness Of Breath Or Wheezin Amlodipine Besylate 5 mg 04/27/25 09:00 05/02/25 09:51 Amlodipine Besylate 5 Mg Tablet PO 5 mg DAILY ARELI Administration Bumetanide 1 mg 05/02/25 13:34 Bumetanide Inj 1 Mg/4 Ml Vial IV PUSH 05/02/25 13:35 ONCE ONE Cyclobenzaprine HCl 5 mg 04/26/25 20:29 05/02/25 05:01 Cyclobenzaprine Hcl 5 Mg Tablet PO 5 mg TID PRN Administration MUSCLE SPASMS Dextrose 12.5 gm 04/26/25 15:37 04/29/25 07:05 Dextrose 50% 25 Gm/50 Ml Syringe IV PUSH 12.5 gm PRN PRN Administration Hypoglycemia Protocol Enoxaparin Sodium 40 mg 04/29/25 09:00 05/02/25 09:50 Enoxaparin 40 Mg/0.4 Ml Syringe SUB-Q 40 mg DAILY ARELI Administration Fluticasone Propionate 2 spray 04/26/25 20:29 Fluticasone Propionate 0.05% Na Spr 16 Gm Btl (*Bkc) NASAL DAILY PRN allergy symptoms Fluticasone/Umeclidinium/Vilanterol 1 puff 04/27/25 08:00 05/02/25 07:50 Fluticasone/Umeclidin/Vilanter 100-62.5-25 Mcg Ellipta INHALATION 1 puff DAILYRT ARELI Administration Glucagon 1 mg 04/26/25 15:37 Glucagon For Inj 1 Mg Vial IM PRN PRN Hypoglycemia Protocol Glucose 15 gm 04/26/25 15:37 Glucose Oral Gel 15 Gm Of Glucse In 37.5 Gm Tube PO PRN PRN Hypoglycemia Protocol Dextrose 1,000 mls @ 100 mls/hr 04/26/25 15:37 Dextrose 5% 1,000 Ml IVPB PRN PRN Hypoglycemia Protocol Morphine Sulfate 4 mg 04/26/25 15:37 05/01/25 20:13 Morphine Sulfate (*Crx) 4 Mg/Ml Inj IV PUSH 4 mg Q2H PRN Administration Pain Rated 7-10 Ondansetron HCl 4 mg 04/26/25 15:37 04/29/25 21:47 Ondansetron Inj 4 Mg/2 Ml Vial IV PUSH 4 mg Q4H PRN Administration Nausea Pantoprazole Sodium 20 mg 05/03/25 09:00 Pantoprazole Sod Sesquihydrate 20 Mg Tab PO QAM ARELI Potassium Chloride 20 meq 05/02/25 13:34 Potassium Chloride 20 Meq Er Tablet PO 05/02/25 13:35 ONCE ONE Ropinirole HCl 1 mg 04/26/25 21:00 05/01/25 20:13 Ropinirole Hcl 1 Mg Tablet PO 1 mg HS ARELI Administration Tramadol HCl 50 mg 04/26/25 20:29 05/02/25 05:01 Tramadol Hcl (*Crx) 50 Mg Tablet PO 50 mg Q6H PRN Administration Pain 4-6 Radiology Results: ITS Impressions Abdomen/Pelvis CT 04/26/25 12:19 IMPRESSION: 1. Thickening of the malik of the body of the stomach. Differential includes incomplete stomach wall distention, gastritis or mass. 2. Short segment focal thickening of the malik of a bowel loop about the an astomotic suture line in bowel in the upper pelvis. Differential includes incomplete bowel wall distention or an inflammatory/infectious process. 3. There are a few small bowel loops with thickened malik possibly secondary to enteritis. 4. Small amount of nonspecific fluid in the pelvis 5. There are a few distended loops of bowel in the pelvis. Differential includes ileus or developing bowel obstruction. Abdomen Ultrasound 04/27/25 15:28 IMPRESSION: 1. Mild intrahepatic biliary duct dilatation which may be secondary to a previous cholecystectomy. However, other etiologies are possible. If of concern, consider an MRCP for further assessment. 2. Liver cyst 3. Right renal cyst. 4. Pancreas was not adequately visualized for evaluation. MRCP 04/28/25 12:58 IMPRESSION: 1. Persistent small bowel obstruction with transition point on the prior CT the central pelvis at a small bowel anastomosis along the distal ileum. 2. Mild intra and extra hepatic biliary ductal dilation without evident obstructing stone or mass likely related to prior cholecystectomy. This is remained stable when compared with CT dated 11/05/2023. 3. Tiny bilateral pleural effusions with dependent consolidation the bilateral lower lobes which could represent atelectasis or pneumonia. Small Bowel X-Ray 05/01/25 15:31 IMPRESSION: 1. Normal small bowel follow-through with small bowel transit time of 45-60 minutes. Abdomen X-Ray 05/02/25 11:41 IMPRESSION: 1. No dilated gas or contrast filled small bowel to suggest obstruction. 2. Small left pleural effusion. Labs Labs: Laboratory Results - last 24 hr 05/01/25 05/01/25 05/02/25 15:43 17:37 04:37 WBC 8.6 RBC 3.87 L Hgb 12.1 Hct 37.7 MCV 97.4 MCH 31.3 MCHC 32.1 RDW 13.6 Plt Count 277 MPV 10.0 PT 13.4 INR 1.0 APTT 29.3 Sodium 134 L Potassium 4.4 Chloride 104 Carbon Dioxide 26 Anion Gap 4 BUN 12 Creatinine 0.40 L Estim Creat Clear Calc 100 Estimated GFR > 60 Glucose 109 POC Capillary Glucose 143 H Calcium 8.7 Phosphorus 4.1 Magnesium 1.8 Transferrin 178 L Total Bilirubin 0.4 AST 41 H ALT 119 H Alkaline Phosphatase 124 Total Protein 6.1 L Albumin 3.2 L Triglycerides 118 05/02/25 05/02/25 07:30 11:27 WBC RBC Hgb Hct MCV MCH MCHC RDW Plt Count MPV PT INR APTT Sodium Potassium Chloride Carbon Dioxide Anion Gap BUN Creatinine Estim Creat Clear Calc Estimated GFR Glucose POC Capillary Glucose 107 H 90 Calcium Phosphorus Magnesium Transferrin Total Bilirubin AST ALT Alkaline Phosphatase Total Protein Albumin Triglycerides
[2025-05-02 14:00] VITALS: BP 124/69; PULSE 76; RESP 18; TEMP 36.9; O2SAT 90
[2025-05-02] MEDS: POTASSIUM CHLORIDE 20 MEQ ER TABLET PO (17:01)
[2025-05-02] MEDS: BUMETANIDE INJ 1 MG/4 ML VIAL IV PUSH (17:01)
[2025-05-02 19:40] VITALS: BP 108/73; PULSE 69; RESP 17; TEMP 36.7; O2SAT 92
[2025-05-02 20:00] VITALS: PULSE 69; RESP 17; O2SAT 92
[2025-05-03 04:52] VITALS: BP 116/73; PULSE 71; RESP 16; TEMP 36.8; O2SAT 94
[2025-05-03 05:52] LABS: Hematocrit 41.1 % (37.0-47.0); Hemoglobin 13.2 g/dL (12.0-15.0); Mean Corpuscular HGB Conc 32.1 g/dl (32-36); Mean Corpuscular Hemoglobin 31.2 pg (26-34); Mean Corpuscular Volume 97.2 fl (80-100); Platelet Count Result 331 k/mm3 (150-375); Red Blood Count 4.23 M/mm3 (4.2-5.4); White Blood Count 10.5 K/mm3 (4.5-10.0)
[2025-05-03 05:53] LABS: Hemoglobin A1C 5.4 % (<5.7)
[2025-05-03 06:08] LABS: Alanine Aminotransferase 105 U/L (6-35); Albumin Level 3.8 g/dL (3.5-5.1); Alkaline Phosphatase 134 U/L (38-126); Anion Gap 6 mmol/L (4-12); Aspartate Amino Transferase 45 U/L (14-36); Bilirubin,Total 0.2 mg/dL (0.2-1.3); Blood Urea Nitrogen 12 mg/dL (7-17); Calcium 9.3 mg/dL (8.4-10.2); Carbon Dioxide 30 mmol/L (22-30); Chloride 99 mmol/L (98-107); Estimated CRCL calculation 75 ml/min; Estimated Glomerular Filt Rate > 60; Glucose 104 mg/dL (65-110); Magnesium 1.6 mg/dL (1.6-2.3); Potassium 4.4 mmol/L (3.4-5.0); Sodium 135 mmol/L (137-145); Total Protein 6.8 g/dL (6.3-8.2)
[2025-05-03] MEDS: FLUTICASONE/UMECLIDIN/VILANTER 100-62.5-25 MCG ELLIPTA 1 PUFF INHALATION (08:26)
[2025-05-03 08:27] VITALS: PULSE 70; RESP 18
[2025-05-03] MEDS: PANTOPRAZOLE SOD SESQUIHYDRATE 20 MG TAB PO (08:54)
--- NOTE | 2025-05-03 10:48 | PCNFU ---
Nutrition Follow-Up Complete: Inadequate energy intake related to NPO status as evidenced by current diet order Goal:meet at least 60% of estimated need Pt meeting goal, New goal for PO intake 75% or greater Pt current nutrition is Low fiber. Nutrition recommendation:continue with current plan of care Last recorded weight is 69.9 kg. Bowel Motility: +BM 05/02 Labs Reviewed: Na:135, Cr:0.5, Glu:120 Meds Noted: protonix, KCL, lovenox Skin: WNL Additional Notes: Pt started on PPN over the weekend, progressed to clear liquids, diet now advanced to low fiber. PPN no longer in place. PO intake 75-100% and pt tolerating well overall, C/o some nausea but no vomiting. Encourage po intake. Monitor intake, wt, labs. Follow up in 5 days.
--- NOTE | 2025-05-03 11:17 | P.PNGS_ITS ---
Progress Note: A&P Assessment and Plan (1) SBO (small bowel obstruction): Code(s): K56.609 - Unspecified intestinal obstruction, unspecified as to partial versus complete obstruction Status: Acute Assessment and Plan: * Tolerating regular diet. She does note some crampy LLQ pain that started after breakfast this morning, but accredited this to likely being from gas. Had multiple BMs yesterday. * Surgically stable for discharge. Plan Discussed patient's case and plan of care with Dr. Madsen. Subjective Subjective Date/Time Seen: 05/03/25 11:17 Patient reports: no new complaints Interval history: Patient is doing well today. No acute events overnight. Tolerating regular diet without nausea or vomiting. Patient does note that she has had some left lower quadrant intermittent crampy pain in the same spot that her pain previously was, however she believes that this is likely gas pains. + BM yesterday. Exam Const: General: comfortable and no acute distress GI: Inspection: non-distended GI Palp: Yes Soft to palpation, Yes Tenderness to palpation present (GI) (minimal tenderness LLQ) and No Guarding due to palpation present (GI) Auscultation: normal bowel sounds Objective Data Vital Signs Vital Signs: Vital Signs - 24 hr 05/02/25 14:00 05/02/25 19:40 05/02/25 20:00 Temperature 98.5 F 98.0 F Pulse Rate 76 69 69 Respiratory Rate 18 17 17 Blood Pressure 124/69 108/73 Pulse Oximetry 90 92 92 Oxygen Delivery Room Air 05/03/25 04:52 05/03/25 08:27 Temperature 98.2 F Pulse Rate 71 70 Respiratory Rate 16 18 Blood Pressure 116/73 Pulse Oximetry 94 Oxygen Delivery Intake/Output Intake/Output: Intake & Output 04/30/25 05/01/25 05/02/25 05/03/25 23:59 23:59 23:59 23:59 Intake Total 3295.8 4631.9 2805.4 590 Output Total 1000 550 Balance 2295.8 4081.9 2805.4 590 Meds/Results Medications: Active Medications Generic Name Dose Route Start Last Admin Trade Name Freq PRN Reason Stop Dose Admin Acetaminophen 650 mg 04/26/25 15:37 Acetaminophen 650 Mg Suppository RECTAL Q6H PRN Mild Pain (1-3) or Fever Albuterol 2 puff 04/26/25 20:29 04/29/25 15:05 Albuterol Sulfate (*Sp) Aerosol 1 Puff INHALATION 2 puff Q4HRT PRN Administration Shortness Of Breath Or Wheezin Amlodipine Besylate 5 mg 04/27/25 09:00 05/03/25 08:54 Amlodipine Besylate 5 Mg Tablet PO 5 mg DAILY ARELI Administration Cyclobenzaprine HCl 5 mg 04/26/25 20:29 05/02/25 05:01 Cyclobenzaprine Hcl 5 Mg Tablet PO 5 mg TID PRN Administration MUSCLE SPASMS Dextrose 12.5 gm 04/26/25 15:37 04/29/25 07:05 Dextrose 50% 25 Gm/50 Ml Syringe IV PUSH 12.5 gm PRN PRN Administration Hypoglycemia Protocol Enoxaparin Sodium 40 mg 04/29/25 09:00 05/02/25 09:50 Enoxaparin 40 Mg/0.4 Ml Syringe SUB-Q 40 mg DAILY ARELI Administration Fluticasone Propionate 2 spray 04/26/25 20:29 Fluticasone Propionate 0.05% Na Spr 16 Gm Btl (*Bkc) NASAL DAILY PRN allergy symptoms Fluticasone/Umeclidinium/Vilanterol 1 puff 04/27/25 08:00 05/03/25 08:26 Fluticasone/Umeclidin/Vilanter 100-62.5-25 Mcg Ellipta INHALATION 1 puff DAILYRT ARELI Administration Glucagon 1 mg 04/26/25 15:37 Glucagon For Inj 1 Mg Vial IM PRN PRN Hypoglycemia Protocol Glucose 15 gm 04/26/25 15:37 Glucose Oral Gel 15 Gm Of Glucse In 37.5 Gm Tube PO PRN PRN Hypoglycemia Protocol Dextrose 1,000 mls @ 100 mls/hr 04/26/25 15:37 Dextrose 5% 1,000 Ml IVPB PRN PRN Hypoglycemia Protocol Morphine Sulfate 4 mg 04/26/25 15:37 05/01/25 20:13 Morphine Sulfate (*Crx) 4 Mg/Ml Inj IV PUSH 4 mg Q2H PRN Administration Pain Rated 7-10 Ondansetron HCl 4 mg 04/26/25 15:37 04/29/25 21:47 Ondansetron Inj 4 Mg/2 Ml Vial IV PUSH 4 mg Q4H PRN Administration Nausea Pantoprazole Sodium 20 mg 05/03/25 09:00 05/03/25 08:54 Pantoprazole Sod Sesquihydrate 20 Mg Tab PO 20 mg QAM ARELI Administration Ropinirole HCl 1 mg 04/26/25 21:00 05/02/25 20:03 Ropinirole Hcl 1 Mg Tablet PO 1 mg HS ARELI Administration Tramadol HCl 50 mg 04/26/25 20:29 05/02/25 05:01 Tramadol Hcl (*Crx) 50 Mg Tablet PO 50 mg Q6H PRN Administration Pain 4-6 Radiology Results: ITS Impressions Abdomen/Pelvis CT 04/26/25 12:19 IMPRESSION: 1. Thickening of the malik of the body of the stomach. Differential includes incomplete stomach wall distention, gastritis or mass. 2. Short segment focal thickening of the malik of a bowel loop about the anastomotic suture line in bowel in the upper pelvis. Differential includes incomplete bowel wall distention or an inflammatory/infectious process. 3. There are a few small bowel loops with thickened malik possibly secondary to enteritis. 4. Small amount of nonspecific fluid in the pelvis 5. There are a few distended loops of bowel in the pelvis. Differential includes ileus or developing bowel obstruction. Abdomen Ultrasound 04/27/25 15:28 IMPRESSION: 1. Mild intrahepatic biliary duct dilatation which may be secondary to a previous cholecystectomy. However, other etiologies are possible. If of concern, consider an MRCP for further assessment. 2. Liver cyst 3. Right renal cyst. 4. Pancreas was not adequately visualized for evaluation. MRCP 04/28/25 12:58 IMPRESSION: 1. Persistent small bowel obstruction with transition point on the prior CT the central pelvis at a small bowel anastomosis along the distal ileum. 2. Mild intra and extra hepatic biliary ductal dilation without evident obstructing stone or mass likely related to prior cholecystectomy. This is remained stable when compared with CT dated 11/05/2023. 3. Tiny bilateral pleural effusions with dependent consolidation the bilateral lower lobes which could represent atelectasis or pneumonia. Small Bowel X-Ray 05/01/25 15:31 IMPRESSION: 1. Normal small bowel follow-through with small bowel transit time of 45-60 minutes. Abdomen X-Ray 05/03/25 07:49 IMPRESSION: 1. Nonobstructive bowel gas pattern. 2. Small left pleural effusion with bibasilar opacities which represent atelectasis or pneumonia. Labs Labs: Laboratory Results - last 24 hr 05/02/25 05/02/25 05/02/25 11:27 16:33 19:43 WBC RBC Hgb Hct MCV MCH MCHC RDW Plt Count MPV Sodium Potassium Chloride Carbon Dioxide Anion Gap BUN Creatinine Estim Creat Clear Calc Estimated GFR Glucose POC Capillary Glucose 90 86 123 H Hemoglobin A1c Calcium Magnesium Total Bilirubin AST ALT Alkaline Phosphatase Total Protein Albumin 05/03/25 05/03/25 05/03/25 04:46 07:21 11:14 WBC 10.5 H RBC 4.23 Hgb 13.2 Hct 41.1 MCV 97.2 MCH 31.2 MCHC 32.1 RDW 13.7 Plt Count 331 MPV 10.0 Sodium 135 L Potassium 4.4 Chloride 99 Carbon Dioxide 30 Anion Gap 6 BUN 12 Creatinine 0.56 L Estim Creat Clear Calc 75 Estimated GFR > 60 Glucose 104 POC Capillary Glucose 120 H 83 Hemoglobin A1c 5.4 Calcium 9.3 Magnesium 1.6 Total Bilirubin 0.2 AST 45 H ALT 105 H Alkaline Phosphatase 134 H Total Protein 6.8 Albumin 3.8
--- NOTE | 2025-05-03 12:42 | P.PNIM_ITS ---
Progress Note: A&P Assessment and Plan (1) Ileus: Code(s): K56.7 - Ileus, unspecified Status: Acute Assessment and Plan: Patient presented with abdominal pain CT abdomen showing thickening of the malik of the body of the stomach. Differential includes incomplete stomach wall distention, gastritis or mass. Short segment focal thickening of the malik of a bowel loop about the anastomotic suture line in bowel in the upper pelvis. Differential includes incomplete bowel wall distention or an inflammatory/infectious process. There are a few small bowel loops with thickened malik possibly secondary to enteritis. Small amount of nonspecific fluid in the pelvis. There are a few distended loops of bowel in the pelvis. Differential includes ileus or developing bowel obstruction. 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 She is well known to [place]'s general surgery team. MRCP showed Persistent small bowel obstruction with transition point on the prior CT the central pelvis at a small bowel anastomosis along the distal ileum on 04/28/2025 * General Surgery consulted * per surgery can continue with conservative measures High risk surgical candidate per surgery * bowel rest * NG has now been removed. * Diet advance further and tolerating low residue diet. * encourage ambulation * Bowel series no further SBO (2) SBO (small bowel obstruction): Code(s): K56.609 - Unspecified intestinal obstruction, unspecified as to partial versus complete obstruction Status: Acute Assessment and Plan: See Above #1 (3) Elevated liver enzymes: Code(s): R74.8 - Abnormal levels of other serum enzymes Status: Acute Assessment and Plan: patient's initial liver enzymes within normal limits POA however follow-up liver enzymes significantly trended up: Tbill 2.1/AST 1389/ALT 712/ALKph 181 * GI consulted and signed off * IV fluids * pain management * liver enzymes continue to trend down * MRCP showing Persistent small bowel obstruction with transition point on the prior CT the central pelvis at a small bowel anastomosis along the distal ileum 04/28/2025 (4) MARÍA (iron deficiency anemia): Qualifiers: Iron deficiency anemia type: unspecified iron deficiency Qualified Code(s): D50.9 - Iron deficiency anemia, unspecified Code(s): D50.9 - Iron deficiency anemia, unspecified Status: Chronic Assessment and Plan: Hgb 14.7, at baseline Hx: of MARÍA and B12 deficiency no evidence of acute bleed * Trend H&H * Transfuse PRBC if Hgb <7.0 (5) Hypertension: Qualifiers: Hypertension type: primary hypertension Qualified Code(s): I10 - Essential (primary) hypertension Code(s): I10 - Essential (primary) hypertension Status: Chronic Assessment and Plan: * continue home medications: Amlodipine * monitor per unit protocol * may need to add hydralazine IVP while patient NPO for control (6) Chronic respiratory failure with hypoxia: Code(s): J96.11 - Chronic respiratory failure with hypoxia Status: Chronic Assessment and Plan: * continue patient's home supplemental oxygen at 2 L nasal cannula (7) Obstructive sleep apnea: Code(s): G47.33 - Obstructive sleep apnea (adult) (pediatric) Status: Chronic Assessment and Plan: see above (8) Hypokalemia: Code(s): E87.6 - Hypokalemia Status: Resolved Assessment and Plan: Replace and monitor (9) Hypoglycemia: Code(s): E16.2 - Hypoglycemia, unspecified Status: Resolved Assessment and Plan: patient went hypoglycemic episode today 04/29/2025 likely secondary to patient's NPO status and NG tube * hypoglycemic protocol followed with amp of D5 * Accu-Cheks q.6 * initiate dextrose 5 in NS with 20 K mEq RESOLVED Plan Code status: Full code per patient DVT prophylaxis: SCD Stress ulcer prophylaxis: Protonix PT/OT notes: NA Disposition: Home when medically stable Subjective Date/time seen: 05/03/25 12:42 Interval history: Patient on low residual diet. Does feel some gas pains had a small bowel movement yesterday. No nausea vomiting. Review of Systems Review of Systems: All systems reviewed & are unremarkable except as noted in HPI and below Exam Narrative: GENERAL: The patient is well developed, not in acute distress HEENT: Nonicteric sclerae, PERRLA, EOMI. Oropharynx clear. Moist mucous membranes. Conjunctivae appear well perfused. CHEST: Chest wall is nontender. HEART: Regular rate and rhythm without murmur, rubs, or gallops LUNGS: Clear to auscultation bilaterally. no respiratory distress ABDOMEN: Soft, positive bowel sounds, non-tender, no organomegaly. SKIN: No rash, no excessive bruising, petechiae, or purpura. NEUROLOGIC: Cranial nerves II-XII intact, alert and oriented x 3, no gross motor deficits EXTREMITIES: no edema, cyanosis or clubbing Objective Data Vital Signs Vital Signs: Vital Signs - 24 hr 05/02/25 14:00 05/02/25 19:40 05/02/25 20:00 Temperature 98.5 F 98.0 F Pulse Rate 76 69 69 Respiratory Rate 18 17 17 Blood Pressure 124/69 108/73 Pulse Oximetry 90 92 92 Oxygen Delivery Room Air 05/03/25 04:52 05/03/25 08:27 Temperature 98.2 F Pulse Rate 71 70 Respiratory Rate 16 18 Blood Pressure 116/73 Pulse Oximetry 94 Oxygen Delivery Intake/Output Intake/Output: Intake & Output 04/30/25 05/01/25 05/02/25 05/03/25 23:59 23:59 23:59 23:59 Intake Total 3295.8 4631.9 2805.4 590 Output Total 1000 550 Balance 2295.8 4081.9 2805.4 590 Meds/Results Medications: Active Medications Generic Name Dose Route Start Last Admin Trade Name Freq PRN Reason Stop Dose Admin Acetaminophen 650 mg 04/26/25 15:37 Acetaminophen 650 Mg Suppository RECTAL Q6H PRN Mild Pain (1-3) or Fever Albuterol 2 puff 04/26/25 20:29 04/29/25 15:05 Albuterol Sulfate (*Sp) Aerosol 1 Puff INHALATION 2 puff Q4HRT PRN Administration Shortness Of Breath Or Wheezin Amlodipine Besylate 5 mg 04/27/25 09:00 05/03/25 08:54 Amlodipine Besylate 5 Mg Tablet PO 5 mg DAILY ARELI Administration Cyclobenzaprine HCl 5 mg 04/26/25 20:29 05/02/25 05:01 Cyclobenzaprine Hcl 5 Mg Tablet PO 5 mg TID PRN Administration MUSCLE SPASMS Dextrose 12.5 gm 04/26/25 15:37 04/29/25 07:05 Dextrose 50% 25 Gm/50 Ml Syringe IV PUSH 12.5 gm PRN PRN Administration Hypoglycemia Protocol Enoxaparin Sodium 40 mg 04/29/25 09:00 05/02/25 09:50 Enoxaparin 40 Mg/0.4 Ml Syringe SUB-Q 40 mg DAILY ARELI Administration Fluticasone Propionate 2 spray 04/26/25 20:29 Fluticasone Propionate 0.05% Na Spr 16 Gm Btl (*Bkc) NASAL DAILY PRN allergy symptoms Fluticasone/Umeclidinium/Vilanterol 1 puff 04/27/25 08:00 05/03/25 08:26 Fluticasone/Umeclidin/Vilanter 100-62.5-25 Mcg Ellipta INHALATION 1 puff DAILYRT ARELI Administration Glucagon 1 mg 04/26/25 15:37 Glucagon For Inj 1 Mg Vial IM PRN PRN Hypoglycemia Protocol Glucose 15 gm 04/26/25 15:37 Glucose Oral Gel 15 Gm Of Glucse In 37.5 Gm Tube PO PRN PRN Hypoglycemia Protocol Dextrose 1,000 mls @ 100 mls/hr 04/26/25 15:37 Dextrose 5% 1,000 Ml IVPB PRN PRN Hypoglycemia Protocol Morphine Sulfate 4 mg 04/26/25 15:37 05/01/25 20:13 Morphine Sulfate (*Crx) 4 Mg/Ml Inj IV PUSH 4 mg Q2H PRN Administration Pain Rated 7-10 Ondansetron HCl 4 mg 04/26/25 15:37 04/29/25 21:47 Ondansetron Inj 4 Mg/2 Ml Vial IV PUSH 4 mg Q4H PRN Administration Nausea Pantoprazole Sodium 20 mg 05/03/25 09:00 05/03/25 08:54 Pantoprazole Sod Sesquihydrate 20 Mg Tab PO 20 mg QAM ARELI Administration Ropinirole HCl 1 mg 04/26/25 21:00 05/02/25 20:03 Ropinirole Hcl 1 Mg Tablet PO 1 mg HS ARELI Administration Tramadol HCl 50 mg 04/26/25 20:29 05/02/25 05:01 Tramadol Hcl (*Crx) 50 Mg Tablet PO 50 mg Q6H PRN Administration Pain 4-6 Radiology Results: ITS Impressions Abdomen/Pelvis CT 04/26/25 12:19 IMPRESSION: 1. Thickening of the malik of the body of the stomach. Differential includes incomplete stomach wall distention, gastritis or mass. 2. Short segment focal thickening of the malik of a bowel loop about the anastomotic suture line in bowel in the upper pelvis. Differential includes incomplete bowel wall distention or an inflammatory/infectious process. 3. There are a few small bowel loops with thickened malik possibly secondary to enteritis. 4. Small amount of nonspecific fluid in the pelvis 5. There are a few distended loops of bowel in the pelvis. Differential includes ileus or developing bowel obstruction. Abdomen Ultrasound 04/27/25 15:28 IMPRESSION: 1. Mild intrahepatic biliary duct dilatation which may be secondary to a previous cholecystectomy. However, other etiologies are possible. If of concern, consider an MRCP for further assessment. 2. Liver cyst 3. Right renal cyst. 4. Pancreas was not adequately visualized for evaluation. MRCP 04/28/25 12:58 IMPRESSION: 1. Persistent small bowel obstruction with transition point on the prior CT the central pelvis at a small bowel anastomosis along the distal ileum. 2. Mild intra and extra hepatic biliary ductal dilation without evident obstructing stone or mass likely related to prior cholecystectomy. This is remained stable when compared with CT dated 11/05/2023. 3. Tiny bilateral pleural effusions with dependent consolidation the bilateral lower lobes which could represent atelectasis or pneumonia. Small Bowel X-Ray 05/01/25 15:31 IMPRESSION: 1. Normal small bowel follow-through with small bowel transit time of 45-60 minutes. Abdomen X-Ray 05/03/25 07:49 IMPRESSION: 1. Nonobstructive bowel gas pattern. 2. Small left pleural effusion with bibasilar opacities which represent atelectasis or pneumonia. Labs Labs: Laboratory Results - last 24 hr 05/02/25 05/02/25 05/03/25 16:33 19:43 04:46 WBC 10.5 H RBC 4.23 Hgb 13.2 Hct 41.1 MCV 97.2 MCH 31.2 MCHC 32.1 RDW 13.7 Plt Count 331 MPV 10.0 Sodium 135 L Potassium 4.4 Chloride 99 Carbon Dioxide 30 Anion Gap 6 BUN 12 Creatinine 0.56 L Estim Creat Clear Calc 75 Estimated GFR > 60 Glucose 104 POC Capillary Glucose 86 123 H Hemoglobin A1c 5.4 Calcium 9.3 Magnesium 1.6 Total Bilirubin 0.2 AST 45 H ALT 105 H Alkaline Phosphatase 134 H Total Protein 6.8 Albumin 3.8 05/03/25 05/03/25 07:21 11:14 WBC RBC Hgb Hct MCV MCH MCHC RDW Plt Count MPV Sodium Potassium Chloride Carbon Dioxide Anion Gap BUN Creatinine Estim Creat Clear Calc Estimated GFR Glucose POC Capillary Glucose 120 H 83 Hemoglobin A1c Calcium Magnesium Total Bilirubin AST ALT Alkaline Phosphatase Total Protein Albumin
[2025-05-03 14:00] VITALS: BP 126/74; PULSE 75; RESP 18; TEMP 36.7; O2SAT 91
--- NOTE | 2025-05-03 15:09 | P.DS_ITS ---
DS: Admitting Diagnosis Discharge Date 05/03/2025 Admitting Diagnosis abdominal pain DS: Discharge Diagnosis Discharge Diagnosis (1) Ileus: Code(s): K56.7 - Ileus, unspecified Status: Acute (2) SBO (small bowel obstruction): Code(s): K56.609 - Unspecified intestinal obstruction, unspecified as to partial versus complete obstruction Status: Acute (3) Elevated liver enzymes: Code(s): R74.8 - Abnormal levels of other serum enzymes Status: Acute (4) MARÍA (iron deficiency anemia): Qualifiers: Iron deficiency anemia type: unspecified iron deficiency Qualified Code(s): D50.9 - Iron deficiency anemia, unspecified Code(s): D50.9 - Iron deficiency anemia, unspecified Status: Chronic (5) Hypertension: Qualifiers: Hypertension type: primary hypertension Qualified Code(s): I10 - Essential (primary) hypertension Code(s): I10 - Essential (primary) hypertension Status: Chronic (6) Chronic respiratory failure with hypoxia: Code(s): J96.11 - Chronic respiratory failure with hypoxia Status: Chronic (7) Obstructive sleep apnea: Code(s): G47.33 - Obstructive sleep apnea (adult) (pediatric) Status: Chronic (8) Hypokalemia: Code(s): E87.6 - Hypokalemia Status: Resolved (9) Hypoglycemia: Code(s): E16.2 - Hypoglycemia, unspecified Status: Resolved DS: Summary Hospital Course Hospital Course: # Ileus: Patient presented with abdominal pain CT abdomen showing thickening of the malik of the body of the stomach. Differential includes incomplete stomach wall distention, gastritis or mass. Short segment focal thickening of the malik of a bowel loop about the anastomotic suture line in bowel in the upper pelvis. Differential includes incomplete bowel wall distention or an inflammatory/infectious process. There are a few small bowel loops with thickened malik possibly secondary to enteritis. Small amount of nonspecific fluid in the pelvis. There are a few distended loops of bowel in the pelvis. Differential includes ileus or developing bowel obstruction. 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 She is well known to [facility] general surgery team. MRCP showed Persistent small bowel obstruction with transition point on the prior CT the central pelvis at a small bowel anastomosis along the distal ileum on 04/28/2025 * General Surgery consulted * per surgery can continue with conservative measures High risk surgical candidate per surgery * bowel rest * NG has now been removed. * Diet advance further and tolerating low residue diet. okay per gen surg to discharge * encourage ambulation * Bowel series no further SBO # SBO (small bowel obstruction): See Above #1 # Elevated liver enzymes: patient's initial liver enzymes within normal limits POA however follow-up liver enzymes significantly trended up: Tbill 2.1/AST 1389/ALT 712/ALKph 181 * GI consulted and signed off * IV fluids * pain management * liver enzymes continue to trend down * MRCP showing Persistent small bowel obstruction with transition point on the prior CT the central pelvis at a small bowel anastomosis along the distal ileum 04/28/2025 # MARÍA (iron deficiency anemia): Hgb 14.7, at baseline Hx: of MARÍA and B12 deficiency no evidence of acute bleed * Trend H&H * Transfuse PRBC if Hgb <7.0 #Hypertension: * continue home medications: Amlodipine * monitor per unit protocol * may need to add hydralazine IVP while patient NPO for control # Chronic respiratory failure with hypoxia: * continue patient's home supplemental oxygen at 2 L nasal cannula # Obstructive sleep apnea: see above # Hypokalemia: Replace and monitor #Hypoglycemia: patient went hypoglycemic episode 04/29/2025 likely secondary to patient's NPO status and NG tube * hypoglycemic protocol followed with amp of D5 * Accu-Cheks q.6 * initiate dextrose 5 in NS with 20 K mEqRESOLVED Code status: Full code per patient DVT prophylaxis: SCD Stress ulcer prophylaxis: Protonix PT/OT notes: NA Disposition: Home when medically stable Time Spent with Patient Time attestation: Total time spent providing and/or coordinating discharge services:35 mins Exam Narrative: GENERAL: The patient is well developed, not in acute distress HEENT: Nonicteric sclerae, PERRLA, EOMI. Oropharynx clear. Moist mucous membranes. Conjunctivae appear well perfused. CHEST: Chest wall is nontender. HEART: Regular rate and rhythm without murmur, rubs, or gallops LUNGS: Clear to auscultation bilaterally. no respiratory distress ABDOMEN: Soft, positive bowel sounds, non-tender, no organomegaly. SKIN: No rash, no excessive bruising, petechiae, or purpura. NEUROLOGIC: Cranial nerves II-XII intact, alert and oriented x 3, no gross motor deficits EXTREMITIES: no edema, cyanosis or clubbing DS: Data Data Completed and Pending Labs on day of discharge: Labs from last 24 hours 05/03/25 05/03/25 05/03/25 11:14 07:21 04:46 WBC 10.5 H RBC 4.23 Hgb 13.2 Hct 41.1 MCV 97.2 MCH 31.2 MCHC 32.1 RDW 13.7 Plt Count 331 MPV 10.0 Sodium 135 L Potassium 4.4 Chloride 99 Carbon Dioxide 30 Anion Gap 6 BUN 12 Creatinine 0.56 L Estim Creat Clear Calc 75 Estimated GFR > 60 Glucose 104 POC Capillary Glucose 83 120 H Hemoglobin A1c 5.4 Calcium 9.3 Magnesium 1.6 Total Bilirubin 0.2 AST 45 H ALT 105 H Alkaline Phosphatase 134 H Total Protein 6.8 Albumin 3.8 05/02/25 05/02/25 19:43 16:33 WBC RBC Hgb Hct MCV MCH MCHC RDW Plt Count MPV Sodium Potassium Chloride Carbon Dioxide Anion Gap BUN Creatinine Estim Creat Clear Calc Estimated GFR Glucose POC Capillary Glucose 123 H 86 Hemoglobin A1c Calcium Magnesium Total Bilirubin AST ALT Alkaline Phosphatase Total Protein Albumin Imaging Radiologist's impression: ITS Impressions Abdomen/Pelvis CT 04/26/25 12:19 IMPRESSION: 1. Thickening of the malik of the body of the stomach. Differential includes incomplete stomach wall distention, gastritis or mass. 2. Short segment focal thickening of the malik of a bowel loop about the anastomotic suture line in bowel in the upper pelvis. Differential includes incomplete bowel wall distention or an inflammatory/infectious process. 3. There are a few small bowel loops with thickened malik possibly secondary to enteritis. 4. Small amount of nonspecific fluid in the pelvis 5. There are a few distended loops of bowel in the pelvis. Differential includes ileus or developing bowel obstruction. Abdomen X-Ray 04/27/25 09:23 IMPRESSION: 1. Moderate gas in the colon with air-fluid level in the stomach, most likely ileus. No definite obstruction. Abdomen X-Ray 04/27/25 12:51 IMPRESSION: Nasogastric tube has been placed since the prior study. The nasogastric tube courses below the diaphragm, its tip projects over the lateral aspect of the left mid abdomen. Abdomen Ultrasound 04/27/25 15:28 IMPRESSION: 1. Mild intrahepatic biliary duct dilatation which may be secondary to a previous cholecystectomy. However, other etiologies are possible. If of concern, consider an MRCP for further assessment. 2. Liver cyst 3. Right renal cyst. 4. Pancreas was not adequately visualized for evaluation. MRCP 04/28/25 12:58 IMPRESSION: 1. Persistent small bowel obstruction with transition point on the prior CT the central pelvis at a small bowel anastomosis along the distal ileum. 2. Mild intra and extra hepatic biliary ductal dilation without evident obstructing stone or mass likely related to prior cholecystectomy. This is remained stable when compared with CT dated 11/05/2023. 3. Tiny bilateral pleural effusions with dependent consolidation the bilateral lower lobes which could represent atelectasis or pneumonia. Abdomen X-Ray 04/29/25 08:19 Impression: 1: Nonobstructive bowel gas pattern. 2: Bilateral airspace disease, suspicious for pneumonia. 3: Small left pleural effusion. Abdomen X-Ray 04/30/25 19:15 Impression: 1. No acute abnormality. Abdomen X-Ray 05/01/25 10:21 IMPRESSION: 1: NG tube tip in the stomach. Small Bowel X-Ray 05/01/25 15:31 IMPRESSION: 1. Normal small bowel follow-through with small bowel transit time of 45-60 minutes. Abdomen X-Ray 05/02/25 11:41 IMPRESSION: 1. No dilated gas or contrast filled small bowel to suggest obstruction. 2. Small left pleural effusion. Abdomen X-Ray 05/03/25 07:49 IMPRESSION: 1. Nonobstructive bowel gas pattern. 2. Small left pleural effusion with bibasilar opacities which represent atelectasis or pneumonia. Discharge Plan Discharge Attending physician on discharge: Sabas Eden Consulting providers: Nando Madsen; Lizz Carlson Discharging Clinician: Sabas Eden Anticipated Discharge Date/Time: 05/03/25 15:12 Patient Disposition: Home Activity: as tolerated Diet: low fiber Patient Instructions: Antibiotic Form Patient Language: Argentine Stand Alone Forms: General Discharge Information Follow-up/Referrals: Ernst Osorio MD [Primary Care Provider, Internal Medicine] - 1 Week Discharge Medications: Continued Trelegy Ellipta 100-62.5-25 mcg blister with device 1 inh INHALATION Q24H fluticasone propionate 50 mcg/actuation spray,suspension 2 spray INTRANASAL DAILY PRN (Reason: allergy symptoms) ropinirole 1 mg tablet 1 mg PO HS albuterol sulfate [ProAir HFA] 90 mcg/actuation HFA aerosol inhaler 2 inhalation INHALATION Q4H PRN (Reason: Shortness Of Breath Or Wheezing) Patient Comments: .. pantoprazole 20 mg tablet,delayed release (DR/EC) See Rx Instructions .ROUTE .COMPLEX Qty: 90 2RF Dose Instruction: TAKE 1 TABLET BY MOUTH EVERY MORNING Rx Instructions: TAKE 1 TABLET BY MOUTH EVERY MORNING amlodipine 5 mg tablet See Rx Instructions .ROUTE .COMPLEX Qty: 90 2RF Dose Instruction: TAKE 1 TABLET BY MOUTH EVERY MORNING Patient Comments: . Rx Instructions: TAKE 1 TABLET BY MOUTH EVERY MORNING cyclobenzaprine 5 mg tablet 5 mg PO TID PRN (Reason: Pain (Scale Score 4-6)) Qty: 30 0RF Patient Comments: . tramadol 50 mg tablet 50 mg PO Q6H PRN (Reason: pain) Qty: 60 0RF Patient Comments: . Date of admission: 04/27/25 09:46 Primary Care Provider: Ernst Osorio Admitting Provider: Nilesh Roman Attending physician on admission: Nilesh Roman Condition: Stable
== END 2025-05-03 16:55 | disposition home or self-care (01) | DRG 389 ==
LOC: ANHED 14:36 → ANH3MEDSUR 16:11
PROVIDERS: Nurse Practitioner Family; Student in an Organized Health Care Education/Training Program; Admitting Provider Internal Medicine; Emergency Provider Physician Assistant; PCP Emergency Medicine; Visit Provider Internal Medicine
DX: K56.609 Unspecified intestinal obstruction, unspecified as to partial versus complete obstruction (principal); J96.11 Chronic respiratory failure with hypoxia; K52.9 Noninfective gastroenteritis and colitis, unspecified; K56.7 Ileus, unspecified; D50.9 Iron deficiency anemia, unspecified; D51.9 Vitamin B12 deficiency anemia, unspecified; G47.33 Obstructive sleep apnea (adult) (pediatric); E87.6 Hypokalemia; E16.1 Other hypoglycemia; E78.2 Mixed hyperlipidemia; K21.9 Gastro-esophageal reflux disease without esophagitis; G25.81 Restless legs syndrome; F41.8 Other specified anxiety disorders; M41.9 Scoliosis, unspecified; E03.9 Hypothyroidism, unspecified; R74.8 Abnormal levels of other serum enzymes; G62.9 Polyneuropathy, unspecified; J44.9 Chronic obstructive pulmonary disease, unspecified; F17.210 Nicotine dependence, cigarettes, uncomplicated; Z86.73 Personal history of transient ischemic attack (TIA), and cerebral infarction without residual deficits; Z93.3 Colostomy status; Z90.710 Acquired absence of both cervix and uterus; Z90.49 Acquired absence of other specified parts of digestive tract; Z99.81 Dependence on supplemental oxygen
CPT/HCPCS: 36415; 74018; 74019; 74177; 74183; 74250; 76376; 76705; 80053; 80074; 81003; 82948; 83036; 83605; 83690; 83735; 84100; 84466; 84478; 85025; 85027; 85610; 85730; 94640; 96361; 96374; 96375; 96376; 99285; A9270; A9577; G0378; J1650; J1939; J2270; J2405; J2470; J2550; J3480; J7030; J7040; Q9967